=== PATIENT | female | born 1965 | race Caucasian/White ===

== ENCOUNTER 2016-10-03 13:34 | Emergency (ER) | payer SELFPAY ==
[~2016-10-03] VITALS: Ht 170.2 cm; Wt 90.7 kg
[~2016-10-03 13:34] MED LIST: ACET-789 PO; IBUP-1773 PO; LORA10CA PO; MUPI1OIN5 NS; OMEP20CA6 PO; SERT25TA PO
--- NOTE | 2016-10-03 14:25 | ED Abdominal Pain ---
General Chief Complaint: Abdominal/GI Problems Stated Complaint: ABD PAIN Nursing Triage Note: pt ambulated to room. pt states last night she had a "gallbladder attack". then today at lunch she was having indigestion. pt states she took antacids. Sepsis Screen: No Definite Risk Source of Information: Patient Exam Limitations: No Limitations History of Present Illness Time Seen By Provider: 14:23 Initial Comments To ER with diffuse abdominal pain. The pain seems to be the worst in the upper abdomen specifically the left upper quadrant. She has associated nausea but no diarrhea, no vomiting and no constipation. Her last bowel movement was this morning and is normal. No fevers or chills. No dysuria. She's had this pain intermittently for about 13 years but has never had it evaluated. It became worse than usual last night awakening her from sleep. Timing/Duration: 1-2 Days Severity/Quality: Moderate Location: Generalized Abdomen Radiation: No Radiation Activities at Onset: None Associated Symptoms: Nausea/Vomiting Allergies and Home Medications Allergies Coded Allergies: NKANo Known Allergies (Unverified Allergy, Mild, 06/12/09) Home Medications Acetaminophen with Codeine 1 Each Tablet, 1 EACH PO Q6H, #20 Prescribed by: ABIDA FONSECA on 12/02/14 0937 Ibuprofen 600 Mg Tablet, 600 MG PO Q6H, #40 Prescribed by: ABIDA FONSECA on 12/02/14 0937 Loratadine 10 Mg Capsule, 10 MG PO DAILY, (Reported) Mupirocin Calcium 1 Gm Oint...g., 1 GM NS BID, (Reported) Omeprazole 20 Mg Capsule.dr, 20 MG PO DAILY, (Reported) Sertraline Hcl 25 Mg Tablet, 25 MG PO DAILY, (Reported) Review of Systems Constitutional: see HPI EENTM: No Symptoms Reported Respiratory: No Symptoms Reported Cardiovascular: No Symptoms Reported Gastrointestinal: See HPI, Abdominal Pain, Denies Constipated, Denies Diarrhea , Nausea Genitourinary: No Symptoms Reported Musculoskeletal: no symptoms reported Skin: no symptoms reported Psychiatric/Neurological: No Symptoms Reported Endocrine: No Symptoms Reported Past Aeihssy-Lotvau-Ixxwcw Hx Patient Social History Recent Foreign Travel: No Contact w/Someone Who Travel: No Recent Infectious Disease Expo: No Surgeries HX Surgeries: Yes Respiratory Hx Respiratory Disorders: Yes (HAS USED IN THE PAST-SEVERE ALLERGIES) Cardiovascular Hx Cardiac Disorders: Yes Neurological Hx Neurological Disorders: No Reproductive System Hx Reproductive Disorders: No Sexually Transmitted Disease: No HIV/AIDS: No Female Reproductive Disorders: Denies Genitourinary Hx Genitourinary Disorders: No Gastrointestinal Hx Gastrointestinal Disorders: Yes Gastrointestinal Disorders: Gastroesophageal Reflux, Hiatal Hernia Musculoskeletal Hx Musculoskeletal Disorders: No Endocrine Hx Endocrine Disorders: No HEENT HX ENT Disorders: Yes (WEARS READING GLASSES) Loss of Vision: Bilateral Hearing Impairment: Denies Cancer Hx Cancer: No Psychosocial Hx Psychiatric Problems: Yes (ZOLOFT, PT REPORTS OCD) Behavioral Health Disorders: Depression Integumentary HX Skin/Integumentary Disorder: No Blood Transfusions Hx Blood Disorders: No Adverse Reaction to a Blood Tr: No Family Medical History Family Medial History: COPD 19 MOTHER Diabetes mellitus 19 FATHER Myocardial infarction 19 FATHER TESTICULAR CANCER G8 BROTHER Physical Exam Vital Signs VS - Last 72 Hours, by Label 10/03/16 14:16 Temp 97.3 Pulse 73 Resp 20 B/P (MAP) 175/97 Pulse Ox 97 O2 Delivery Room Air Capillary Refill : Less Than 3 Seconds General Appearance: WD/WN, no apparent distress HEENT: PERRL/EOMI, normal ENT inspection Neck: non-tender, full range of motion Respiratory: normal breath sounds, no respiratory distress, no accessory muscle use Cardiovascular: regular rate, rhythm, no murmur Gastrointestinal: normal bowel sounds, soft, tenderness (left upper quadrant) Extremities: normal range of motion, non-tender Neurologic/Psychiatric: alert, normal mood/affect, oriented x 3 Skin: normal color, warm/dry Progress/Results/Core Measures Results/Orders Lab Results Laboratory Tests Test 10/03/16 14:21 Range/Units White Blood Count 7.4 4.3-11.0 10^3/uL Red Blood Count 4.34 L 4.35-5.85 10^6/uL Hemoglobin 12.9 11.5-16.0 G/DL Hematocrit 40 35-52 % Mean Corpuscular Volume 91 80-99 FL Mean Corpuscular Hemoglobin 30 25-34 PG Mean Corpuscular Hemoglobin Concent 33 32-36 G/DL Red Cell Distribution Width 13.0 10.0-14.5 % Platelet Count 278 130-400 10^3/uL Mean Platelet Volume 9.5 7.4-10.4 FL Neutrophils (%) (Auto) 58 42-75 % Lymphocytes (%) (Auto) 31 12-44 % Monocytes (%) (Auto) 8 0-12 % Eosinophils (%) (Auto) 3 0-10 % Basophils (%) (Auto) 1 0-10 % Neutrophils # (Auto) 4.3 1.8-7.8 X 10^3 Lymphocytes # (Auto) 2.3 1.0-4.0 X 10^3 Monocytes # (Auto) 0.6 0.0-1.0 X 10^3 Eosinophils # (Auto) 0.2 0.0-0.3 10^3/uL Basophils # (Auto) 0.0 0.0-0.1 10^3/uL Urine Color YELLOW Urine Clarity CLEAR Urine pH 6 5-9 Urine Specific [place] 1.025 H 1.016-1.022 Urine Protein 1+ H NEGATIVE Urine Glucose (UA) NEGATIVE NEGATIVE Urine Ketones NEGATIVE NEGATIVE Urine Nitrite NEGATIVE NEGATIVE Urine Bilirubin NEGATIVE NEGATIVE Urine Urobilinogen 1 NORMAL MG/DL Urine Leukocyte Esterase 1+ H NEGATIVE Urine RBC (Auto) NEGATIVE NEGATIVE Urine RBC NONE /HPF Urine WBC NONE /HPF Urine Squamous Epithelial Cells 2-5 /HPF Urine Crystals NONE /LPF Urine Bacteria NEGATIVE /HPF Urine Casts NONE /LPF Urine Mucus SMALL H /LPF Urine Culture Indicated NO Sodium Level 143 135-145 MMOL/L Potassium Level 3.7 3.6-5.0 MMOL/L Chloride Level 105 98-107 MMOL/L Carbon Dioxide Level 28 21-32 MMOL/L Anion Gap 10 5-14 MMOL/L Blood Urea Nitrogen 10 7-18 MG/DL Creatinine 1.02 0.60-1.30 MG/DL Estimat Glomerular Filtration Rate 57 BUN/Creatinine Ratio 10 0-20 Glucose Level 125 H 70-105 MG/DL Calcium Level 9.3 8.5-10.1 MG/DL Total Bilirubin 0.3 0.1-1.0 MG/DL Aspartate Amino Transf (AST/SGOT) 36 H 5-34 U/L Alanine Aminotransferase (ALT/SGPT) 30 0-55 U/L Alkaline Phosphatase 62 40-136 U/L Total Protein 5.9 L 6.4-8.2 GM/DL Albumin 4.0 3.2-4.5 GM/DL Lipase 15 8-78 U/L My Orders Orders - GHAZAL GAUTHIER VICE CHAIR Cbc With Automated Diff (10/03/16 14:22) Comprehensive Metabolic Panel (10/03/16 14:22) Ua Culture If Indicated (10/03/16 14:22) Lipase (10/03/16 14:22) Saline Lock/Iv-Start (10/03/16 14:22) Ct Abdomen/Pelvis W (10/03/16 14:22) Iohexol Injection (Omnipaque 350 Mg/Ml 1 (10/03/16 15:00) Ns (Ivpb) (Sodium Chloride 0.9% Ivpb Bag (10/03/16 15:00) Medications Given in ED Current Medications Medications Dose Ordered Sig/Damon Route Start Time Stop Time Status Last Admin Dose Admin Iohexol 100 ml ONCE ONCE IV 10/03/16 15:00 10/03/16 15:01 DC 10/03/16 15:58 100 ML Vital Signs/I&O Vital Sign - Last 12Hours 10/03/16 14:16 Temp 97.3 Pulse 73 Resp 20 B/P (MAP) 175/97 Pulse Ox 97 O2 Delivery Room Air Blood Pressure Mean: 123 Diagnostic Imaging Diagonstic Imaging: Xray Comments NAME: JAS AGUILAR [facility] REC#: [id number] PT STATUS: REG ER : 1965 PHYSICIAN: GHAZAL GAUTHIER APRN ADMIT DATE: 10/03/16/ER Draft Date of Exam:10/03/16 CT ABDOMEN/PELVIS W PROCEDURE: CT abdomen and pelvis with contrast. TECHNIQUE: Multiple contiguous axial images were obtained through the abdomen and pelvis after administration of intravenous contrast. INDICATION: Abdominal pain and bloating. FINDINGS: There is mild low density throughout the liver without focal hepatic or splenic lesion identified. Gallbladder contains partially calcified stone without evidence of gallbladder distention or wall thickening. No definite biliary ductal dilatation is appreciated. Left adrenal gland and kidneys are unremarkable in appearance. Right adrenal gland contains an approximately 3.4 x 2.6 cm solid nodule with Hounsfield units of approximately 34 on dynamic phase images and 15 on delayed images. There is sohj-tw-kjelwldv aortoiliac atherosclerotic calcification. Uterus demonstrates no abnormality. Partially opacified urinary bladder has a normal appearance. There is no free fluid in the abdomen or pelvis. The appendix has a normal appearance. There may be a cyst in the right ovary. Impression: No definite acute abnormalities identified; however, there is probable hepatic steatosis and cholelithiasis. There is a dominant solid mass in the right adrenal gland. This could represent a benign adenoma although clinical correlation is recommended. If older studies are available, comparison would be of value. If indicated, MRI may be of value for assessment of presence of lipid or fat signal. Dictated on workstation # [id number] Dict: 10/03/16 1620 Trans: 10/03/16 1631 [id number] Interpreted by: DACIA BETH MD Electronically signed by: Departure Impression Impression: Primary Impression: Cholelithiasis Disposition: 01 HOME, SELF-CARE Condition: Stable Departure-Patient Inst. Decision time for Depature: 16:32 Referrals: CESAR RYAN BRETT D DO ENOCH, BETHANY N MD (PCP/Family) Primary Care Physician RENEE YOO MD, TAKAAKI MD Patient Instructions: Gallstones (DC) Add. Discharge Instructions: 1. Follow-up with one of the surgeons listed. Call tomorrow to make an appointment to be seen. In the meantime, no fatty foods or dairy products. 2. He also need to follow-up with one of your regular physicians to obtain an MRI of the abdomen to further evaluate the right adrenal gland abnormality. All discharge instructions reviewed with patient and/or family. Voiced understanding. Copy Copies To 1: SONNY MORENO PETER J APRN Oct 03, 2016 14:25
[2016-10-03 14:37] LABS: BASOPHILS % (AUTO) 1 % (0-10); BILIRUBIN,URINE NEGATIVE (NEGATIVE); EOSINOPHILS # (AUTO) 0.2 10^3/uL (0.0-0.3); EOSINOPHILS % (AUTO) 3 % (0-10); KETONES,URINE NEGATIVE (NEGATIVE); LEUKOCYTE ESTERASE ,URINE 1+ (NEGATIVE); LYMPHOCYTES # (AUTO) 2.3 X 10^3 (1.0-4.0); LYMPHOCYTES % (AUTO) 31 % (12-44); MEAN CORPUSCULAR HEMOGLOBIN 30 PG (25-34); MEAN CORPUSCULAR HGB CONC 33 G/DL (32-36); MEAN CORPUSCULAR VOLUME 91 FL (80-99); MEAN PLATELET VOLUME 9.5 FL (7.4-10.4); MONOCYTES # (AUTO) 0.6 X 10^3 (0.0-1.0); MONOCYTES % (AUTO) 8 % (0-12); NEUTROPHILS # (AUTO) 4.3 X 10^3 (1.8-7.8); NEUTROPHILS % (AUTO) 58 % (42-75); NITRITE,URINE NEGATIVE (NEGATIVE); PH,URINE 6 (5-9); PLATELET COUNT 278 10^3/uL (130-400); PROTEIN,URINE 1+ (NEGATIVE); RED BLOOD COUNT 4.34 10^6/uL (4.35-5.85); UROBILINOGEN,URINE 1 MG/DL (NORMAL); WHITE BLOOD COUNT 7.4 10^3/uL (4.3-11.0)
[2016-10-03 14:54] LABS: BILIRUBIN,TOTAL 0.3 MG/DL (0.1-1.0); CALCIUM 9.3 MG/DL (8.5-10.1); CREATININE SERUM 1.02 MG/DL (0.60-1.30); ICTERUS 0.3 (0-1.9); POTASSIUM 3.7 MMOL/L (3.6-5.0); TOTAL PROTEIN 5.9 GM/DL (6.4-8.2)
[2016-10-03] MEDS ORDERED: NS 100 ML (IVPB) BAG IV ONE (15:00)
[2016-10-03] MEDS ORDERED: IOHEXOL 350 MG/ML 100 ML (OMNIPAQUE 350) VIAL IV ONE (15:00)
--- NOTE | 2016-10-03 16:32 | Diagnostic Imaging Report ---
PROCEDURE: CT abdomen and pelvis with contrast. TECHNIQUE: Multiple contiguous axial images were obtained through the abdomen and pelvis after administration of intravenous contrast. INDICATION: Abdominal pain and bloating. FINDINGS: There is mild low density throughout the liver without focal hepatic or splenic lesion identified. Gallbladder contains partially calcified stone without evidence of gallbladder distention or wall thickening. No definite biliary ductal dilatation is appreciated. Left adrenal gland and kidneys are unremarkable in appearance. Right adrenal gland contains an approximately 3.4 x 2.6 cm solid nodule with Hounsfield units of approximately 34 on dynamic phase images and 15 on delayed images. There is yhup-pk-dhtwnnwe aortoiliac atherosclerotic calcification. Uterus demonstrates no abnormality. Partially opacified urinary bladder has a normal appearance. There is no free fluid in the abdomen or pelvis. The appendix has a normal appearance. There may be a cyst in the right ovary. Impression: No definite acute abnormalities identified; however, there is probable hepatic steatosis and cholelithiasis. There is a dominant solid mass in the right adrenal gland. This could represent a benign adenoma although clinical correlation is recommended. If older studies are available, comparison would be of value. If indicated, MRI may be of value for assessment of presence of lipid or fat signal. Dictated by: Dictated on workstation # [id number]
[2016-10-03 16:59] VITALS: BP 175/97
== END 2016-10-03 16:59 | disposition home or self-care (01) ==
LOC: EDUNIT# 13:34 → ER 13:37
DX: K80.20 Calculus of gallbladder without cholecystitis without obstruction (principal); K21.9 Gastro-esophageal reflux disease without esophagitis; Z87.19 Personal history of other diseases of the digestive system
CPT/HCPCS: 36415; 74177; 80053; 81000; 83690; 85025

== ENCOUNTER → 2016-12-24 | Outpatient (CLI) | payer BC, OTHER ==
[~2016-12-24] MED LIST changes: +GADOBUTROL 10 MMOL/10 ML (GADAVIST) VIAL IV ONE
[2016-12-24 09:01] LABS: CREATININE SERUM 1.02 MG/DL (0.60-1.30)
--- NOTE | 2016-12-24 11:28 | Diagnostic Imaging Report ---
PROCEDURE: MR imaging abdomen with and without contrast. TECHNIQUE: Multiplanar, multisequence MR imaging of the abdomen was performed with and without contrast. INDICATION: Further evaluation of adrenal mass. FINDINGS: Right adrenal mass is stable in size measuring 3.4 x 2.6 cm. On opposed phase imaging, there is marked signal dropout indicative of intrinsic lipid and compatible with benign adenoma. The left adrenal gland is normal. Opposed phase imaging also demonstrates diffuse signal dropout in the liver indicative of hepatic steatosis. Postcontrast imaging demonstrates no concerning hepatic lesions. The spleen and pancreas are normal. Gallbladder is distended with multiple filling defects indicative of cholelithiasis. No gallbladder wall thickening or pericholecystic fluid. No biliary duct dilatation. The common bile duct measures 5 mm in maximal dimension. Kidneys enhance normally. No hydronephrosis. No abdominal lymphadenopathy. Normal caliber abdominal aorta. IMPRESSION: 1. 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 2. Diffuse hepatic steatosis. No focal hepatic lesions. 3. Cholelithiasis. No biliary duct dilatation or evidence of acute cholecystitis. Dictated by: Dictated on workstation # [id number]
== END ==
LOC: RAD 08:17
PROVIDERS: ATTEND Family Medicine
DX: E27.9 Disorder of adrenal gland, unspecified (principal); K76.0 Fatty (change of) liver, not elsewhere classified; K80.20 Calculus of gallbladder without cholecystitis without obstruction; Z91.89 Other specified personal risk factors, not elsewhere classified
CPT/HCPCS: 36415; 74183; 82565; 84520

== ENCOUNTER 2016-12-29 08:06 | Outpatient (RCR) | payer OTHER ==
[~2016-12-29 08:06] MED LIST changes: -GADOBUTROL 10 MMOL/10 ML (GADAVIST) VIAL IV ONE
[2017-01-02 07:08] LABS: URINE CREATININE MG/DL 128 MG/DL
[2017-01-02 07:13] LABS: VMA 24 HOUR URINE 3.9 MG/L; VMA/CREATININE 121 MG/DL
[2017-01-02 07:14] LABS: CREATININE VMA TIMED 24 HOUR 1573 H MG/D (500-1400)
[2017-01-02 07:15] LABS: VMA CREATININE RATIO 3 MG/GCR (0-6); VMA URINE INTERPRETATION SEE FOOTNOTE
[2017-01-02 07:24] LABS: META CREAT URINE 1547 MG/D (500-1400)
[2017-01-02 07:28] LABS: NORMETANEPHRINES RATIO 297 UG/G CRT (0-400)
[2017-01-02 07:29] LABS: METANEPHRINES RATIO 75 UG/G CRT (0-300); METANEPHRINES URINE 116 ug/day (39-143); NORMETANEPHRINES URINE 459 H ug/day (109-393)
[2017-01-02 07:30] LABS: NETANEPHRINES INTERP SEE FOOTNOTE
[2017-01-02 07:31] LABS: CREATININE METANEPHRINES MG/DL 119 MG/DL
== END 2016-12-29 11:00 | disposition home or self-care (01) ==
LOC: LAB 08:06
PROVIDERS: ATTEND Surgery
DX: E27.9 Disorder of adrenal gland, unspecified (principal)
CPT/HCPCS: 36415; 82088; 83835; 84585

== ENCOUNTER → 2017-01-20 | Outpatient (CLI) | payer OTHER | LOC: PREOP 05:39 | PROVIDERS: ATTEND Surgery | DX: Z01.818 Encounter for other preprocedural examination (principal); K80.20 Calculus of gallbladder without cholecystitis without obstruction ==

== ENCOUNTER 2017-03-19 05:37 | Outpatient (CLI) | payer SELFPAY ==
[~2017-03-19] VITALS: Ht 170.2 cm; Wt 99.8 kg
[2017-03-19] MEDS ORDERED: HYDR25TA4 PO (12:33)
== END 2017-03-19 12:42 ==
LOC: PREOP 05:37
PROVIDERS: ATTEND Surgery
DX: Z01.818 Encounter for other preprocedural examination (principal); K80.20 Calculus of gallbladder without cholecystitis without obstruction

== ENCOUNTER 2017-03-26 06:24 | Day surgery (SDC) | payer SELFPAY ==
[~2017-03-26] VITALS: Ht 170.2 cm; Wt 99.8 kg
[~2017-03-26 06:24] MED LIST changes: +HYDR25TA4 PO
[2017-03-26 06:45] VITALS: BP 150/96
[2017-03-26] MEDS ORDERED: FAMOTIDINE 20MG/2ML IV (PEPCID) IV ONE (07:00)
[2017-03-26] MEDS ORDERED: MIDAZOLAM 2 MG/2 ML (VERSED) VIAL IV ONE (07:00)
[2017-03-26] MEDS ORDERED: ceFAZolin 2 GM/NS 50 ML IV ONE (07:00)
[2017-03-26] MEDS ORDERED: metroNIDAZOLE 500 MG/100 ML IVPB (PRE-MIX) IV ONE (07:00)
[2017-03-26 07:05] LABS: MEAN PLATELET VOLUME 9.4 FL (7.4-10.4); RED BLOOD COUNT 4.66 10^6/uL (4.35-5.85); RED CELL DISTRIBUTION WIDTH 12.6 % (10.0-14.5); WHITE BLOOD COUNT 7.3 10^3/uL (4.3-11.0)
[2017-03-26] MEDS: LACTATED RINGERS 1,000 ML IV SCH ×2 (07:16→07:45)
[2017-03-26] MEDS ORDERED: MIDAZOLAM 2 MG/2 ML (VERSED) VIAL ONE (07:20)
[2017-03-26] MEDS ORDERED: fentaNYL INJECTION 100 MCG/2 ML AMP ONE ×2 (07:21→09:48)
[2017-03-26] MEDS ORDERED: BUP/EPI 0.5% 1:200,000 (MARCAINE) 10ML VIAL IJ ONE (07:41)
--- NOTE | 2017-03-26 07:50 | Progress Note-Pre Operative ---
Pre-Operative Progress Note H&P Reviewed The H&P was reviewed, patient examined and no changes noted. Date Seen by Provider: Feb 27, 2017 Time Seen by Provider: 11:20 Date H&P Reviewed: Mar 26, 2017 Time H&P Reviewed: 07:49 Pre-Operative Diagnosis: Gallstones RENEE YOO MD Mar 26, 2017 7:49 am
[2017-03-26] MEDS ORDERED: ATOR20TA66 PO (08:12)
[2017-03-26] MEDS ORDERED: DEXAMETHASONE 10 MG/ML (DECADRON) 1 ML VIAL ONE (09:01)
[2017-03-26] MEDS ORDERED: ONDANSETRON 4 MG/2 ML (SDV) Z0FRAN ONE ×2 (09:01→09:38)
[2017-03-26] MEDS ORDERED: ROCURONIUM 50 MG/5 ML (ZEMURON) VIAL IV ONE (09:01)
[2017-03-26] MEDS ORDERED: proPOfol 200 MG/20 ML (DIPRIVAN) VIAL IV ONE (09:01)
[2017-03-26] MEDS ORDERED: LIDOCAINE PF 2% 5 ML (XYLOCAINE) VIAL ONE (09:01)
[2017-03-26] MEDS ORDERED: SEVOFLURANE (ULTANE) 15 ML INHAL SOLN ONE ×4 (09:01→09:38)
[2017-03-26] MEDS ORDERED: GLYCOPYRROLATE 0.2 MG/ML (ROBINUL) 2 ML VIAL ONE (09:51)
[2017-03-26] MEDS ORDERED: NEOSTIGMINE (BLOXIVERZ ) 1 MG/1ML 10 ML VIAL ONE (09:51)
--- NOTE | 2017-03-26 09:55 | Operative Report ---
Operative Report Date of Procedure/Surgery Mar 26, 2017 Surgeon (s) RENEE YOO MD Hose Coupling Joiner (s): N/A Post-Operative Diagnosis Same Procedure Performed Robotic-assisted cholecystectomy Description of Procedure Anesthesia Type: General Estimated blood loss (mL): Minimal Specimen(s) collected/removed Gallbladder Description of the Procedure Indication for procedure: This lady presented with symptomatic gallstones, found on CT scan. Incidental, nonfunctioning right adrenal nodule was also discovered. This will be followed up with a CT scan in 6 months. With regard to gallstones, she was offered cholecystectomy with minimally invasive technique using robotic assistance. Informed consent was obtained after reviewing the operative details and complications of wound infection and bile leak Description of the procedure: She was placed supine on the operative table and general anesthesia induced using an endotracheal tube. 2 g of Ancef and 500 mg of Flagyl were administered intravenously as prophylaxis against wound infection. Sequential compression devices were placed around her legs, to minimize the risk of venous thrombosis. Abdomen was prepared and draped in the usual sterile manner. Due to previous abdominal surgery using a lower midline incision, I elected to establish pneumoperitoneum using a Veress needle introduced over the left subcostal margin. Intra-abdominal pressure was maintained at 15 mmHg, using carbon dioxide insufflation. A 5 mm trocar was placed and anatomy was lysed using a conventional laparoscope. Omentum was adherent to the undersurface of the lower midline scar. Under direct view, I placed an 8 mm trocar associated with da Krishna system over the left side of the abdomen and took down the adhesions, allowing placement of the 12 mm trocar through the umbilicus itself. An additional 8 mm trocar was placed over the right side of the abdomen and we switched to the robotic system. All the trocars were docked in place. Gallbladder was thick, containing multiple large stones and rather elongated. Was retracted cephalad and the infundibulum grasped with Cadiere or sepsis. Thickened tissue around the neck of the gallbladder was sized using the hook cautery delineating the cystic duct. It was controlled using locking clips. Cystic artery was managed in a similar fashion and the cholecystectomy completed using the hook artery. Subhepatic space was irrigated with saline and the gallbladder placed in an Endo Catch bag, being removed via the umbilical incision. The fascia over this incision was closed using #1 Vicryl incisions were closed using 4-0 Vicryl, in a subcuticular fashion. 0.5 percent Marcaine with epinephrine was infiltrated along the incisions, both preemptively and at the conclusion of the operation. She tolerated the procedure well, was extubated in the operating room and taken to the recovery room in a stable condition Findings of the Procedure See op report Allergies and Home Medications Allergies Coded Allergies: No Known Drug Allergies (Unverified , 03/19/17) Home Medications Atorvastatin Calcium 20 Mg Tablet, 20 MG PO DAILY, (Reported) Hydrochlorothiazide 25 Mg Tablet, 25 MG PO DAILY, (Reported) RENEE YOO MD Mar 26, 2017 9:55 am
[2017-03-26] MEDS ORDERED: HYDR-3812 PO (09:56)
--- NOTE | 2017-03-26 09:56 | Discharge Inst-Simple/Standard ---
Discharge Inst-Standard Discharge Medications New, Converted or Re-Newed RX: RX on Chart Patient Instructions/Follow Up Plan of Care/Instructions/FU: Band-Aids off in 48 hours. Incentive spirometry. Follow-up in 3 weeks. Activity as Tolerated: Yes Discharge Diet: No Restrictions RENEE YOO MD Mar 26, 2017 9:56 am
[2017-03-26] MEDS ORDERED: KETOROLAC 30 MG/ML VIAL ONE (09:59)
[2017-03-26] MEDS ORDERED: morphine INJ 10 MG/ML 1ML (SYR OR VIAL) ONE (10:08)
[2017-03-26] MEDS ORDERED: HYDROmorphone (DILAUDID) 2 MG/ML VIAL IVP PRN (10:15)
[2017-03-26] MEDS ORDERED: ONDANSETRON 4 MG/2 ML (SDV) Z0FRAN IVP PRN (10:15)
[2017-03-26] MEDS ORDERED: morphine INJ 10 MG/ML 1ML (SYR OR VIAL) IVP PRN (10:15)
[2017-03-26] MEDS ORDERED: PROMETHAZINE INJ 25 MG/ML (PHENERGAN) AMP IVP PRN (10:15)
[2017-03-26 11:00] VITALS: BP 118/76
[2017-03-26 11:30] VITALS: BP 122/69
[2017-03-26] MEDS ORDERED: LACTATED RINGERS 1,000 ML IV PRN (11:47)
[2017-03-26 12:00] VITALS: BP 113/69
[2017-03-26 12:01] VITALS: BP 113/69
== END 2017-03-26 12:20 | disposition home or self-care (01) ==
LOC: SDC 06:24
PROVIDERS: ATTEND Surgery
DX: K80.10 Calculus of gallbladder with chronic cholecystitis without obstruction (principal); I10 Essential (primary) hypertension; J44.9 Chronic obstructive pulmonary disease, unspecified; F41.9 Anxiety disorder, unspecified; F17.210 Nicotine dependence, cigarettes, uncomplicated; E66.9 Obesity, unspecified; Z68.34 Body mass index [BMI] 34.0-34.9, adult; Z79.899 Other long term (current) drug therapy
CPT/HCPCS: 36415; 84703; 85027; 87081; 88304; 94664

== ENCOUNTER → 2017-07-16 | Outpatient (CLI) | payer SELFPAY ==
[~2017-07-16] MED LIST changes: +ACHD5005 PO; +ATOR20TA66 PO
--- NOTE | 2017-07-16 10:17 | Diagnostic Imaging Report ---
PROCEDURE: US Abdomen, limited. TECHNIQUE: Multiple realtime grayscale images were obtained over the abdomen in various projections. INDICATION: Right groin pain. Sonographic interrogation of the right groin was performed. No sonographic abnormality is seen. No mass is identified. No definite hernia is detected. IMPRESSION: Unremarkable right groin ultrasound. Dictated by: Dictated on workstation # [id number]
== END ==
LOC: RAD 07:53
PROVIDERS: ATTEND Family Medicine
DX: R10.31 Right lower quadrant pain (principal)
CPT/HCPCS: 76705

== ENCOUNTER → 2018-08-04 | Outpatient (CLI) | payer SELFPAY ==
[2018-08-04 11:50] LABS: ALANINE AMINOTRANSFERASE 27 U/L (0-55); ALBUMIN 4.1 GM/DL (3.2-4.5); ALKALINE PHOSPHATASE 67 U/L (40-136); BILIRUBIN,TOTAL 0.3 MG/DL (0.1-1.0); BUN/CREATININE RATIO 13; CALCIUM 9.5 MG/DL (8.5-10.1); CARBON DIOXIDE 31 MMOL/L (21-32); CHLORIDE 101 MMOL/L (98-107); CREATININE SERUM 0.92 MG/DL (0.60-1.30); GFR ESTIMATED > 60; GLUCOSE 88 MG/DL (70-105); POTASSIUM 3.9 MMOL/L (3.6-5.0); SODIUM 140 MMOL/L (135-145)
--- NOTE | 2018-08-04 13:39 | Diagnostic Imaging Report ---
PROCEDURE: CT abdomen and pelvis with contrast. TECHNIQUE: Multiple contiguous axial images were obtained through the abdomen and pelvis after administration of intravenous contrast. Auto Exposure Controls were utilized during the CT exam to meet ALARA standards for radiation dose reduction. INDICATION: Right adrenal adenoma as well as bilateral renal stones. COMPARISON: Correlation is made with prior CT from 10/03/2016. FINDINGS: The lung bases are clear. The liver again demonstrates generalized low density consistent with hepatic steatosis. No discrete liver mass is identified. Gallbladder is surgically absent. No biliary ductal dilatation is seen. The pancreas and spleen are unremarkable. The left adrenal gland is unremarkable. Right adrenal mass is again seen. This measures approximately 3.8 x 3.0 cm. When measured by the same technique this measures approximately 3.7 x 3.1 cm on prior. The kidneys are unremarkable. No hydronephrosis is seen. Aorta is calcified but nonaneurysmal. No central retroperitoneal or mesenteric lymphadenopathy is detected. The small and large bowel loops are normal in caliber. There is no ascites. The uterus is unremarkable. Bladder is decompressed. No pelvic lymphadenopathy is seen. IMPRESSION: 1. Hepatic steatosis. 2. Stable low-density right adrenal mass most suggestive of an adenoma. This now shows nearly 2 years of stability. 3. No other significant abnormality in the abdomen or pelvis is identified. Dictated by: Dictated on workstation # [id number]
== END ==
LOC: RAD 10:56
PROVIDERS: ATTEND Family Medicine
DX: E78.5 Hyperlipidemia, unspecified (principal); I10 Essential (primary) hypertension; D35.01 Benign neoplasm of right adrenal gland; N20.0 Calculus of kidney; K76.0 Fatty (change of) liver, not elsewhere classified; Z90.49 Acquired absence of other specified parts of digestive tract
CPT/HCPCS: 36415; 74177; 80053

== ENCOUNTER → 2019-05-05 | Outpatient (CLI) | payer OTHER ==
[~2019-05-05] MED LIST changes: +FURO20TA4 PO
== END ==
LOC: CARD 10:55
PROVIDERS: ATTEND Family Medicine
DX: I10 Essential (primary) hypertension (principal); M79.89 Other specified soft tissue disorders
CPT/HCPCS: 93306

== ENCOUNTER 2019-05-06 05:33 | Outpatient (CLI) | payer OTHER ==
[~2019-05-06] VITALS: Ht 170 cm; Wt 118.0 kg
[~2019-05-06 05:33] MED LIST changes: -FURO20TA4 PO
[2019-05-06] MEDS ORDERED: FURO20TA4 PO (12:42)
== END 2019-05-06 12:46 | disposition home or self-care (01) ==
LOC: PREOP 05:33
PROVIDERS: ATTEND Surgery
DX: Z01.818 Encounter for other preprocedural examination (principal)

== ENCOUNTER → 2019-06-02 | Outpatient (CLI) | payer OTHER ==
[~2019-06-02] MED LIST changes: +FURO20TA4 PO
--- NOTE | 2019-06-02 11:47 | Diagnostic Imaging Report ---
INDICATION: Screening. TECHNIQUE: The current study was also evaluated with a Computer Aided Detection (CAD) system. 3D Tomographic imaging was also performed. COMPARISON: No prior examinations are available for comparison. FINDINGS: There are scattered fibroglandular densities bilaterally. There are a few benign type calcifications. There is no dominant mass, spiculated lesion, or suspicious calcification identified. The skin, nipples, and axillae are unremarkable. IMPRESSION: Benign findings. ACR BI-RADS Category 2: Benign findings. Result letter will be mailed to the patient. Note: At least 10% of breast cancer is not imaged by mammography. Dictated by: Dictated on workstation # [id number]
== END ==
LOC: RAD 10:29
PROVIDERS: ATTEND Family Medicine
DX: Z12.31 Encounter for screening mammogram for malignant neoplasm of breast (principal)
CPT/HCPCS: 77067

== ENCOUNTER → 2019-06-14 | Outpatient (CLI) | payer OTHER ==
--- NOTE | 2019-06-14 12:19 | Diagnostic Imaging Report ---
PROCEDURE: MRI lumbar spine. TECHNIQUE: Multiplanar, multisequence MRI of the lumbar spine was performed without contrast. INDICATION: Chronic low back pain. COMPARISON: No prior studies are available for comparison. FINDINGS: Curvature and alignment of the lumbar spine is normal. Vertebral body heights are well-maintained. No acute compression fracture is seen. There appears to be a benign hemangiolipoma within the L3 vertebral body. No acute compression fracture is seen. There is generalized degenerative disc disease with variable disc space narrowing and desiccation. The conus is unremarkable at the L1 level. T12-L1: Central canal and neural foramina are widely patent. L1-L2: Central canal is widely patent. Neural foramina are patent. L2-L3: Broad-based disc/osteophyte complex indents the ventral thecal sac. Central canal remains patent. No significant neural foraminal narrowing is seen. L3-L4: Central canal remains widely patent. There appears to be very mild neural foraminal narrowing bilaterally. L4-L5: There is some ligamentous thickening present. There is flattening of the ventral thecal sac due to disc/osteophyte complex. Central canal remains patent. There is some narrowing of the lateral recesses bilaterally. There is also moderate bilateral neural foraminal narrowing. L5-S1: Broad-based disc/osteophyte complex indents the ventral thecal sac. This is asymmetric to the right. This does narrow the right lateral recess. There is also moderate right neural foraminal narrowing. Central canal and left neural foramen are patent. Paraspinous tissues demonstrate a right adrenal mass, noted on prior CT. IMPRESSION: 1. Degenerative lumbar spondylosis with multilevel lateral recess and neural foraminal narrowing described level by level above. No central canal stenosis is seen. No acute compression fracture is identified. Dictated by: Dictated on workstation # [id number]
== END ==
LOC: RAD 10:25
PROVIDERS: ATTEND Family Medicine
DX: M47.816 Spondylosis without myelopathy or radiculopathy, lumbar region (principal); M54.41 Lumbago with sciatica, right side; M54.42 Lumbago with sciatica, left side
CPT/HCPCS: 72148

== ENCOUNTER 2019-08-08 15:41 | Inpatient (IN) | payer OTHER ==
[~2019-08-08] VITALS: Ht 170 cm; Wt 120.2 kg
[2019-08-08] VITALS (9 sets, daily range): BP systolic 91–156; BP diastolic 60–108
--- OUTSIDE RECORDS SUMMARY | 2019-08-08 15:47 | XMS REPORT ---
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 Name Role Phone Migration, Doctor Unavailable Unavailable PROBLEMS Type Condition ICD9-CM Code [id number] Code Onset Dates Condition S tatus SNOMED Code Problem Essential hypertension I10 Active 11569562 Problem Chronic obstructive pulmonary disease, unspecified COPD ty pe J44.9 Active 04289113 Problem Allergic rhinitis J30.9 Active 61 568294 Problem Hyperlipidemia E78.5 Active 60948 004 Problem GERD (gastroesophageal reflux disease) K21.9 Active 120185739 Problem Depression F32.9 Active 83873706 Problem 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 Active 454459681 Problem Anxiety F41.9 Active 25687830 Problem Fibromyalgia M79.7 Active 3193704 05 Problem Lumbago with sciatica, left side M54.42 Active 958360260 Problem Lumbago with sciatica, right side M54.41 Active 857638646 Problem BMI 40.0-44.9, adult Z68.41 Active 439295050 Problem 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 Active 70226561 Problem COPD exacerbation J44.1 Active 19 4324902 Problem Tobacco use Z72.0 Active 97473821 8 Problem Other chronic pain G89.29 Active 8 7022633 Problem BMI 37.0-37.9, adult Z68.37 Active 729338411 Problem Non-alcoholic fatty liver disease K76.0 Active 355546348 Problem Elevated hemoglobin D58.2 Active 708903838 ALLERGIES No Information ENCOUNTERS Encounter Location Date Diagnosis [facility] [address] [id number] [address] [place] [address] 13 Jun, 2019 Chronic obstructive pulmonar y disease, unspecified COPD type J44.9 ; Other chronic pain G89.29 ; 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 ; Lumbago with sciatica, right side M54.41 and Lumbago with sciatica, left side M54.42 [place] [address] [facility] [id number] [address] [place] [address] Jun, 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 ; Segmental dysfunction of thoracic region M99.02 ; Segmental dysfunction of lumbar region M99.03 and Segmental dysfunction of sacral region M99.04 [facility] [address] [id number] [address] [place] [address] Jun, [place] [address] [facility] [id number] [place] [address] Jun, 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 ; Segmental dysfunction of thoracic region M99.02 ; Segmental dysfunction of lumbar region M99.03 and Segmental dysfunction of sacral region M99.04 [place] [address] [facility] [id number] [address] [place] [address] 27 May, 2019 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 ; Segmental dysfunction of thoracic region M99.02 ; Segmental dysfunction of lumbar region M99.03 and Segmental dysfunction of sacral region M99.04 [place] [address] [place] [id number] [address] [place] [address] 17 May, 2019 [place] [address] [place] [id number] [place] [address] May, Lumbago with sciatica, right side M54.41 ; Lumbago with sciatica, left side M54.42 ; BMI 40.0-44.9, adult Z68.41 ; Peripheral edema R60.9 ; Decreased GFR R94.4 and Elevated hemoglobin D58.2 [facility] [address] [id number] [address] [place] [address] 05 May, 2019 COPD exacerbation J44.1 and Bronchitis J40 [facility] [address] [facility] [id number] [address] [place] [address] Apr, Decreased GFR R94.4 [place] [address] [facility] [facility] [id number] [address] [place] [address] Apr, Well woman exam with routine gynecological exam Z01.419 ; Screening mammogram, encounter for Z12.31 ; Decreased GFR R94.4 ; Elevated hemoglobin D58.2 and BMI 40.0-44.9, adult Z68.41 [place] [address] [address] 08 Apr, 2019 Decreased GFR R94.[address] [address] 02 Apr, 2019 Swelling R60.9 ; Bloating R1 4.0 ; Screening for colon cancer Z12.11 ; Hyperlipidemia E78.5 ; Depression F32.9 ; Essential hypertension I10 and Non- alcoholic fatty liver disease K76.0 [facility] [address] [address] Mar, Generalized edema R60.[address] [address] Mar, [facility] [address] [address] Mar, Chronic obstructive pulmonar y disease, unspecified COPD type J44.9 and Pedal edema R60.[address] [address] Feb, [address] [address] Dec, Hyperlipidemia E78.5 ; Essen tial hypertension I10 ; Epigastric pain R10.13 ; Colon cancer screening Z12.11 ; Tobacco use Z72.0 ; BMI 37.0-37.9, adult Z68.37 ; Non-alcoholic fatty liver disease K76.0 and Diastasis recti M62.[address] [address] Dec, Hyperlipidemia E78.[address] [address] Dec, Hyperlipidemia E78.5 [place] [address] [address] Dec, Essential hypertension I10 a nd Hyperlipidemia E78.5 [place] [address] [address] Jul, Lumbago with sciatica, right side M54.41 and Lumbago with sciatica, left side M54.42 [place] [address] [address] Jul, Essential hypertension I10 ; Chronic obstructive pulmonary disease, unspecified COPD type J44.9 ; Lumbago with sciatica, right side M54.41 ; Lumbago with sciatica, left side M54.42 ; Other chronic pain G89.29 ; Tobacco abuse counseling Z71.6 ; 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 and Hyperlipidemia E78.5 [place] [address] [address] May, Hyperlipidemia E78.5 [facility] [address] [address] Feb, Acute bronchitis, unspecifie d organism J20.9 and Cough R05 [place] [address] [address] Feb, [place] [address] [address] Dec, Muscle ache M79.1 ; Hyperlip idemia E78.5 and Tick bite, sequela W57.XXXS [place] [address] [address] Dec, Essential hypertension I10 ; Ganglion cyst M67.40 ; Hyperlipidemia E78.5 ; Fibromyalgia M79.7 ; Muscle ache M79.1 and Tick bite, sequela W57.XXXS [place] [address] [address] Oct, [place] [address] [address] Jul, [place] [address] [address] Jul, Right groin pain R10.31 and Hoarseness R49.0 [place] [address] [address] Jun, [place] [address] [address] Jun, Chronic obstructive pulmonar y disease, unspecified COPD type J44.9 and Bronchitis J40 [address] [address] Jun, Right groin pain R10.[address] [address] Jun, Right groin pain R10.31 [place] [address] [address] Jun, Right groin pain R10.31 ; Ch ronic obstructive pulmonary disease, unspecified COPD type J44.9 ; 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 ; Anxiety F41.9 ; Depression F32.9 and 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 [address] Feb, [place] [address] [address] Jan, Hyperlipidemia 272.4 ; Adeno ma of right adrenal gland D35.01 and Hyperlipidemia E78.[address] [address] 13 Jan, 2017 [place] [address] [address] 15 Dec, 2016 Adenoma of right adrenal gla nd D35.01 ; Essential hypertension I10 ; Hyperlipidemia E78.5 ; Calculus of gallbladder without cholecystitis without obstruction K80.20 ; Tobacco use Z72.0 and BMI 33.0-33.9,adult Z68.[address] [address] Nov, Essential hypertension I10 [place] [address] [address] Nov, At high risk for kidney inju ry Z91.89 [place] [address] [address] Nov, Right adrenal mass E27.9 and Calculus of gallbladder without cholecystitis without obstruction K80.20 [facility] [place] [address] [address] Sep, Musculoskeletal pain of righ t lower extremity M79.604 [place] [address] [address] Oct, Chronic obstructive pulmonar y disease, unspecified COPD type J44.9 [place] [address] [address] Oct, Tobacco abuse Z72.0 [place] [address] [address] Sep, [facility] [address] [address] August, Bronchitis J40 [place] [address] [address] Apr, Depression F32.9 ; Essential hypertension I10 ; Hyperlipidemia E78.5 ; Abdominal bloating R14.0 ; Irregular menstruation N92.6 ; Hoarseness or changing voice R49.9 ; Wheezing R06.2 and Tobacco abuse Z72.0 [place] [address] [address] Nov, Major depressive disorder, r ecurrent episode, moderate 296.32 [facility] [address] [id number] [address] [place] [address] Nov, Hypertension 401.9 and Tobac co abuse 305.1 [facility] [address] [id number] [address] [place] [address] Nov, [facility] [address] [id number] [address] [place] [address] Nov, [facility] [address] [id number] [address] [place] [address] Nov, Major depressive disorder, r ecurrent episode, moderate 296.32 [facility] [address] [facility] [id number] [address] [place] [address] Oct, [facility] [address] [facility] [id number] [address] [place] [address] Oct, Major depressive disorder, r ecurrent episode, moderate 296.32 [facility] [address] [facility] [id number] [address] [place] [address] Oct, [facility] [address] [facility] [id number] [address] [place] [address] Sep, Hyperlipidemia 272.4 ; Depre ssion 311 and Urinary incontinence 788.30 [facility] [address] [facility] [id number] [address] [place] [address] Jul, [facility] [address] [facility] [id number] [address] [place] [address] Jul, [facility] [address] [facility] [id number] [address] [place] [address] Jan, [facility] [address] [facility] [id number] [address] [place] [address] Jan, [facility] [address] [facility] [id number] [address] [place] [address] Jan, [facility] [address] [facility] [id number] [address] [place] [address] 06 Jan, 2014 [facility] [address] [id number] [address] [place] [address], [place] [address] 18 Dec, 2013 [facility] [address] [id number] [address] [place] [address], [place] [address] 18 Dec, 2013 [facility] [address] [id number] [address] [place] [address], [place] [address] 17 Dec, 2013 [facility] [address] [id number] [address] [place] [address], [place] [address] 17 Dec, 2013 [facility] [address] [id number] [address] [place] [address], [place] [address] 16 Dec, 2013 [facility] [address] [id number] [address] [place] [address], [place] [address] 16 Dec, 2013 [facility] [address] [id number] [address] [place] [address], [place] [address] 14 Oct, 2013 [facility] [address] [id number] [address] [place] [address], [place] [address] 14 Oct, 2013 [facility] [address] [id number] [address] [place] [address], [place] [address] August, [facility] [address] [id number] [address] [place] [address], [place] [address] August, [facility] [address] [id number] [address] [place] [address], [place] [address] August, [facility] [address] [id number] [address] [place] [address], [place] [address] August, [facility] [address] [id number] [address] [place] [address], [place] [address] Jul, [facility] [address] [id number] [address] [place] [address], [place] [address] 18 Jul, 2013 [facility] [address] [id number] [address] [place] [address], [place] [address] Jun, [facility] [address] [id number] [address] [place] [address], [place] [address] 31 Jun, 2013 [facility] [address] [id number] [address] [place] [address], [place] [address] Mar, [facility] [address] [id number] [address] [place] [address], [place] [address] Mar, [facility] [address] [id number] [address] [place] [address], [place] [address] Jan, [facility] [address] [id number] [address] [place] [address], [place] [address] Oct, [facility] [address] [id number] [address] [place] [address], [place] [address] August, [facility] [address] [id number] [address] [place] [address], [place] [address] Jun, [facility] [address] [id number] [address] [place] [address], [place] [address] Apr, [facility] [address] [id number] [address] [place] [address], [place] [address] Mar, [facility] [address] [id number] [address] [place] [address], [place] [address] Mar, [facility] [address] [id number] [address] [place] [address], [place] [address] Mar, [facility] [address] [id number] [address] [place] [address], [place] [address] Mar, [facility] [address] [id number] [address] [place] [address], [place] [address] Nov, [facility] [address] [id number] [address] [place] [address], [place] [address] Nov, [facility] [address] [id number] [address] [place] [address], [place] [address] Mar, [facility] [address] [id number] [address] [place] [address], [place] [address] Mar, [facility] [address] [id number] [address] [place] [address] Oct, [facility] [address] [id number] [address] [place] [address] Oct, [facility] [address] [id number] [address] [place] [address] Sep, [facility] [address] [id number] [address] [place] [address] Apr, [facility] [address] [id number] [address] [place] [address] Feb, [facility] [address] [id number] [address] [place] [address] Jan, [facility] [address] [facility] [id number] [address] [place] [address] Jan, IMMUNIZATIONS No Known Immunizations SOCIAL HISTORY Never Assessed REASON FOR VISIT PLAN OF CARE VITAL SIGNS Height 66.75 in 2011-12-12 Weight 201.5 lbs 2011-12-12 Temperature 98.3 degrees Fahrenheit 2011-12-12 Heart Rate 80 bpm 2011-12-12 Respiratory Rate 18 2011-12-12 Blood pressure systolic 122 mmHg 2011-12-12 Blood pressure diastolic 80 mmHg 2011-12-12 MEDICATIONS No Known Medications RESULTS No Results PROCEDURES Procedure Date Ordered Result Body Site COMPLETE CBC W/AUTO DIFF WBC Dec 12, 2011 ASSAY THYROID STIM HORMONE Dec 12, 2011 COMPREHEN METABOLIC PANEL Dec 12, 2011 VENIPUNCT, ROUTINE* Dec 12, 2011 INSTRUCTIONS MEDICATIONS ADMINISTERED No Known Medications MEDICAL (GENERAL) HISTORY Type Description Date Medical History hyperlipidemia Medical History anxiety Medical History Allergies Medical History Calculus of gallbladder with out cholecystitis without obstruction Medical History Calculus of gallbladder with out cholecystitis without obstruction Surgical History heart cath [facility]- normal per record review 05/2009 Surgical History breast biopsy/benign mass removed 1 Surgical History section x 1 Surgical History bladder surgery 11/2014 Surgical History Gallbladder Removal 03/2017 Hospitalization History Surgery
--- OUTSIDE RECORDS SUMMARY | 2019-08-08 15:47 | XMS REPORT ---
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 Name Role Phone Migration, Doctor Unavailable Unavailable PROBLEMS Type Condition ICD9-CM Code UUL33-BE Code Onset Dates Condition S tatus SNOMED Code Problem Essential hypertension I10 Active 62248545 Problem Chronic obstructive pulmonary disease, unspecified COPD ty pe J44.9 Active 85008417 Problem Allergic rhinitis J30.9 Active 61 899219 Problem Hyperlipidemia E78.5 Active 63543 004 Problem GERD (gastroesophageal reflux disease) K21.9 Active 009700170 Problem Depression F32.9 Active 16922719 Problem 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 Active 584992036 Problem Anxiety F41.9 Active 13737911 Problem Fibromyalgia M79.7 Active 8708601 05 Problem Lumbago with sciatica, left side M54.42 Active 197269769 Problem Lumbago with sciatica, right side M54.41 Active 735480368 Problem BMI 40.0-44.9, adult Z68.41 Active 643355487 Problem 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 Active 00045675 Problem Laryngeal polyp J38.1 Active 8642 3004 Problem COPD exacerbation J44.1 Active 19 7873237 Problem Tobacco use Z72.0 Active 58833836 8 Problem Tubular adenoma D36.9 Active 4444 61605 Problem Other chronic pain G89.29 Active 8 3010501 Problem BMI 37.0-37.9, adult Z68.37 Active 358389454 Problem Non-alcoholic fatty liver disease K76.0 Active 768211350 Problem Elevated hemoglobin D58.2 Active 718799134 ALLERGIES No Information ENCOUNTERS Encounter Location Date Diagnosis [facility] [place] [address] [facility] [id number] [address] [place] [address] 14 Jul, 2019 Adenoma of right adrenal gla nd D35.01 ; Lumbago with sciatica, right side M54.41 ; Lumbago with sciatica, left side M54.42 and Swelling R60.9 [place] [address] [address] [facility] [id number] [address] [place] [address] 13 Jul, 2019 [place] [address] [address] 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 [id number] [address] [place] [address] Jun, [place] [address] [address] 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 [id number] [address] [place] [phone] 17 May, [address] [id number] [address] [place] [address] May, Lumbago with sciatica, right side M54.41 ; Lumbago with sciatica, left side M54.42 ; BMI 40.0-44.9, adult Z68.41 ; Peripheral edema R60.9 ; Decreased GFR R94.4 and Elevated hemoglobin D58.2 [facility] [address] [place] [phone] 05 May, 2019 COPD exacerbation J44.1 and Bronchitis J40 [address] [address] Apr, Decreased GFR R94.[address] [address] 15 Apr, 2019 Well woman exam with routine gynecological exam Z01.419 ; Screening mammogram, encounter for Z12.31 ; Decreased GFR R94.4 ; Elevated hemoglobin D58.2 and BMI 40.0-44.9, adult Z68.[address] [address] 08 Apr, 2019 Decreased GFR R94.[address] [address] Apr, Swelling R60.9 ; Bloating R1 4.0 ; Screening for colon cancer Z12.11 ; Hyperlipidemia E78.5 ; Depression F32.9 ; Essential hypertension I10 and Non- alcoholic fatty liver disease K76.0 [facility] [place] [address] [address] Mar, Generalized edema R60.[address] [address] Mar, [facility] [address] [address] Mar, Chronic obstructive pulmonar y disease, unspecified COPD type J44.9 and Pedal edema R60.[address] [address] Feb, [address] [address] Dec, Hyperlipidemia E78.5 ; Essen tial hypertension I10 ; Epigastric pain R10.13 ; Colon cancer screening Z12.11 ; Tobacco use Z72.0 ; BMI 37.0-37.9, adult Z68.37 ; Non-alcoholic fatty liver disease K76.0 and Diastasis recti M62.08 [place] [address] [address] Dec, Hyperlipidemia E78.5 [place] [address] [address] Dec, Hyperlipidemia E78.5 [place] [address] [address] Dec, Essential hypertension I10 a nd Hyperlipidemia E78.5 [place] [address] [address] Jul, Lumbago with sciatica, right side M54.41 and Lumbago with sciatica, left side M54.42 [place] [address] [address] Jul, Essential hypertension I10 ; Chronic obstructive pulmonary disease, unspecified COPD type J44.9 ; Lumbago with sciatica, right side M54.41 ; Lumbago with sciatica, left side M54.42 ; Other chronic pain G89.29 ; Tobacco abuse counseling Z71.6 ; 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 and Hyperlipidemia E78.5 [place] [address] [address] May, Hyperlipidemia E78.5 [facility] [address] [address] Feb, Acute bronchitis, unspecifie d organism J20.9 and Cough R05 [place] [address] [address] Feb, [place] [address] [address] Dec, Muscle ache M79.1 ; Hyperlip idemia E78.5 and Tick bite, sequela W57.XXXS [place] [address] [address] Dec, Essential hypertension I10 ; Ganglion cyst M67.40 ; Hyperlipidemia E78.5 ; Fibromyalgia M79.7 ; Muscle ache M79.1 and Tick bite, sequela W57.XXXS [place] [address] [address] Oct, [place] [address] [address] Jul, [place] [address] [address] Jul, Right groin pain R10.31 and Hoarseness R49.0 [place] [address] [address] Jun, [place] [address] [address] Jun, Chronic obstructive pulmonar y disease, unspecified COPD type J44.9 and Bronchitis J40 [place] [address] [address] Jun, Right groin pain R10.31 [place] [address] [address] Jun, Right groin pain R10.31 [place] [address] [address] Jun, Right groin pain R10.31 ; Ch ronic obstructive pulmonary disease, unspecified COPD type J44.9 ; 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 ; Anxiety F41.9 ; Depression F32.9 and 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 [place] [address] [address] Feb, [place] [address] [address] Jan, Hyperlipidemia 272.4 ; Adeno ma of right adrenal gland D35.01 and Hyperlipidemia E78.5 [place] [address] [address] Jan, [address] [address] Dec, Adenoma of right adrenal gla nd D35.01 ; Essential hypertension I10 ; Hyperlipidemia E78.5 ; Calculus of gallbladder without cholecystitis without obstruction K80.20 ; Tobacco use Z72.0 and BMI 33.0-33.9,adult Z68.[address] [address] Nov, Essential hypertension I10 [address] [address] Nov, At high risk for kidney inju ry Z91.[address] [address] Nov, Right adrenal mass E27.9 and Calculus of gallbladder without cholecystitis without obstruction K80.20 [facility] [address] [place] [address] Sep, Musculoskeletal pain of righ t lower extremity M79.[address] [address] Oct, Chronic obstructive pulmonar y disease, unspecified COPD type J44.[address] [address] Oct, Tobacco abuse Z72.[address] [address] Sep, [facility] [address] [address] August, Bronchitis J40 [facility] [place] [address] [address] Apr, Depression F32.9 ; Essential hypertension I10 ; Hyperlipidemia E78.5 ; Abdominal bloating R14.0 ; Irregular menstruation N92.6 ; Hoarseness or changing voice R49.9 ; Wheezing R06.2 and Tobacco abuse Z72.0 [place] [address] [address] Nov, Major depressive disorder, r ecurrent episode, moderate 296.32 [place] [address] [address] Nov, Hypertension 401.9 and Tobac co abuse 305.1 [place] [address] [address] Nov, [place] [address] [address] Nov, [facility] [place] [address] [address] Nov, Major depressive disorder, r ecurrent episode, moderate 296.32 [place] [address] [address] Oct, [place] [address] [address] Oct, Major depressive disorder, r ecurrent episode, moderate 296.32 [place] [address] [address] Oct, [place] [address] [address] Sep, Hyperlipidemia 272.4 ; Depre ssion 311 and Urinary incontinence 788.30 [facility] [place] [address] [address] Jul, [facility] [place] [address] [address] Jul, [facility] [address] [id number] [address] [place] [address], [place] [address] Jan, [facility] [address] [id number] [address] [place] [address], [place] [address] Jan, [facility] [address] [id number] [address] [place] [address], [place] [address] Jan, [facility] [address] [id number] [address] [place] [address], [place] [address] 06 Jan, 2014 [facility] [address] [id number] [address] [place] [address], [place] [address] 18 Dec, 2013 [facility] [address] [id number] [address] [place] [address], [place] [address] 18 Dec, 2013 [facility] [address] [id number] [address] [place] [address], [place] [address] 17 Dec, 2013 [facility] [address] [id number] [address] [place] [address], [place] [address] 17 Dec, 2013 [facility] [address] [id number] [address] [place] [address], [place] [address] 16 Dec, 2013 [facility] [address] [id number] [address] [place] [address], [place] [address] 16 Dec, 2013 [facility] [address] [id number] [address] [place] [address], [place] [address] 14 Oct, 2013 [facility] [address] [id number] [address] [place] [address], [place] [address] Oct, [facility] [address] [id number] [address] [place] [address], [place] [address] August, [facility] [address] [id number] [address] [place] [address], [place] [address] August, [facility] [address] [id number] [address] [place] [address], [place] [address] August, [facility] [address] [id number] [address] [place] [address], [place] [address] August, [facility] [address] [id number] [address] [place] [address], [place] [address] Jul, [facility] [address] [id number] [address] [place] [address], [place] [address] Jul, [facility] [address] [id number] [address] [place] [address], [place] [address] Jun, [facility] [address] [id number] [address] [place] [address], [place] [address] Jun, [facility] [address] [id number] [address] [place] [address], [place] [address] Mar, [facility] [address] [id number] [address] [place] [address], [place] [address] Mar, [facility] [address] [id number] [address] [place] [address], [place] [address] Jan, [facility] [address] [id number] [address] [place] [address], [place] [address] Oct, [facility] [address] [id number] [address] [place] [address], [place] [address] August, [facility] [address] [id number] [address] [place] [address], [place] [address] Jun, [facility] [address] [id number] [address] [place] [address], [place] [address] Apr, [facility] [address] [id number] [address] [place] [address], [place] [address] Mar, [facility] [address] [id number] [address] [place] [address], [place] [address] Mar, [facility] [address] [id number] [address] [place] [address], [place] [address] Mar, [facility] [address] [id number] [address] [place] [address], [place] [address] Mar, [facility] [place] [address] [id number] [address] [place] [address] Nov, [facility] [place] [address] [id number] [address] [place] [address] Nov, [facility] [place] [address] [id number] [address] [place] [address] Mar, [facility] [place] [address] [id number] [address] [place] [address] Mar, [facility] [place] [address] [id number] [address] [place] [address] Oct, [facility] [place] [address] [id number] [address] [place] [address] Oct, [facility] [place] [address] [id number] [address] [place] [address] Sep, [facility] [place] [address] [id number] [address] [place] [address] Apr, [facility] [place] [address] [id number] [address] [place] [address] Feb, [facility] [place] [address] [id number] [address] [place] [address] Jan, [facility] [place] [address] [id number] [address] [place] [address] Jan, IMMUNIZATIONS No Known Immunizations SOCIAL HISTORY Never Assessed REASON FOR VISIT PLAN OF CARE VITAL SIGNS MEDICATIONS No Known Medications RESULTS No Results PROCEDURES No Known procedures INSTRUCTIONS MEDICATIONS ADMINISTERED No Known Medications MEDICAL [...]
--- OUTSIDE RECORDS SUMMARY | 2019-08-08 15:47 | XMS REPORT ---
Author Author [employer]. Organization [employer]. Address [address] [address] Care Team Providers Care Electroencephalographic Technologist Name Role Phone ASHLEY, LAMONT Unavailable Unavailable CELESTINA RAMIREZ Unavailable Unavailable ASHLEY, LAMONT N Unavailable ASHLEY, LAMONT N Unavailable ASHLEY, LAMONT Unavailable ASHLEY, LAMONT Unavailable ASHLEY, LAMONT Unavailable ASHLEY, LAMONT Unavailable ASHLEY, LAMONT Unavailable ASHLEY, LAMONT Unavailable ASHLEY, LAMONT Unavailable ASHLEY, LAMONT Unavailable ASHLEY, LAMONT Unavailable ASHLEY, LAMONT Unavailable ASHLEY, LAMONT Unavailable KATHLEEN IRVING DO Unavailable Unavailable FENALINE GLASS, TIFFANIE S Unavailable Unavailable GHAZAL GAUTHIER APRN Unavailable Unavailable SERINA NEGRON Unavailable Unavailable ASHLEY, LAMONT Unavailable ASHLEY, LAMONT Unavailable JOSH VIDAL Unavailable Migration, Doctor Unavailable Unavailable Migration, Doctor Unavailable Unavailable Migration, Doctor Unavailable Unavailable Migration, Doctor Unavailable Unavailable Migration, Doctor Unavailable Unavailable Migration, Doctor Unavailable Unavailable ASHLEY, LAMONT N Unavailable Unavailable Migration, Doctor Unavailable Unavailable LAMONT RAMIREZ MD Unavailable Unavailable CESAR RYAN DO Unavailable Unavailable FENECH DO, TIFFANIE S Unavailable Unavailable GHAZAL GAUTHIER APRN Unavailable Unavailable RENEE YOO MD Unavailable Unavailable KATHLEEN IRVING DO Unavailable Unavailable Unavailable Unavailable Migration, Doctor Unavailable Unavailable Migration, Doctor Unavailable Unavailable Migration, Doctor Unavailable Unavailable Migration, Doctor Unavailable Unavailable Migration, Doctor Unavailable Unavailable Migration, Doctor Unavailable Unavailable Allergies Normalized Allergy Reported Date of Reaction(s) Care Provider Facility Allergy Type classification allergen Allergy Onset MA (22 Unclassified NKANo Known 06-12-2009 - no information TIFFANIE PÉREZ Not Available sources.) Allergies , DO (80107) DA (2 Unclassified No Known Drug 03-19-2017 - no information LAMONT RAMIREZ Not Available sources.) Allergies , (70156) Medications Medication Ingredient Drug Dose Dates Status Sig Sig Care Class(es) (Normalized) (Original) Provid er atorvastati atorvastati HMG-CoA 20 mg 03-04-20 Active no At orvastatin no n 20 mg n Reductase 17 information Calcium 20 na me oral tablet Translation Inhibitor mg Orally (no (5 s: [ Once a day 1 phone) sources.) Atorvastati tablet 24h n Calcium Feb, 20 mg] 90 days Active benzonatate benzonatate Non-narcoti 100 mg 03-18-20 Active no Tessalon no 100 mg oral Translation c 18 information Perles 100 name capsule (1 s: [ Antitussive mg Orally (no source.) Tessalon Three times phone) Perles 100 a day 1 mg] capsule as needed 8h Feb, 10 days Active dexamethaso dexamethaso Corticoster 12 mg 01-04-20 Active no Dexamethason no ne 1 mg ne oid 17 information e 1 MG name oral tablet Translation Orally One (no (1 source.) s: [ time between phone) Dexamethaso 11pm and 12 ne 1 MG] am night before labs 1 tablet Dec, 1 dose Active dextrometho Dextrometho Uncompetiti 15 Active no Tussin C ough no rphan rphan ve mg/mL information 15 MG/5ML name hydrobromid Translation N-methyl-D- Orally every (no e 3 mg/ml s: [ Tussin aspartate 6 hrs 5 ml phone) oral Cough 15 Receptor as needed 6h solution (1 MG/5ML] Antagonist, Active source.) Sigma-1 Agonist predniSONE predniSONE no 20 mg 03-18-20 Active no Predn iSONE no 20 mg oral Translation information 18 information 20 mg O rally name tablet (1 s: [ Once a day 1 (no source.) PredniSONE tablet 24h phone) 20 mg] Feb, 5 days Active no tiotropium Anticholine 18 ug 07-19-19 Active take 1 Tiot ropium no information rgic 18 capsule by [place] name (2 inhalation Monohydrate (no sources.) once daily 18 MCG phone) Inhalation Once a day 1 capsule 24h Jun, Active no triamcinolo Corticoster 1 Active take 1 Nasacort no information ne oid puff(s puff(s) Allergy 24HR na me (2 Translation ) nasal route 55 MCG/ACT (no sources.) s: [ once daily Nasally Once phone) Nasacort a day 1 puff Allergy in each 24HR 55 nostril 24h MCG/ACT] Active Problems Problem Normalized Date of Normalized Normalized Provider Fac ility Classification Problem(s) Problem Problem Problem Sta tus Onset/Resoluti Duration on Residual Acquired 06-11-2019 - Episodic Active LAMONT ASHLEY [facility] Via codes; absence of , MD [place] unclassified other Hospital - (6 sources.) specified [place] parts of ([address]) digestive tract Other and Benign 06-11-2019 - Episodic Active CESARNINA RYAN , [facility] Via unspecified neoplasm of [facility] benign ascending Hospital - neoplasm (5 colon [place] sources.) (32533) Other and Benign 06-11-2019 - Episodic Active CESARNINA RYAN [facility] Via unspecified neoplasm of [facility] benign descending [facility] - neoplasm (5 colon [place] sources.) (69184) Other Body mass Chronic Active RENEE YOO [facility] Via nutritional; index (BMI) , MD [place] endocrine; and 34.0-34.9, Hospital - metabolic adult [place] disorders (6 (94159) sources.) Calculus of Calculus of Episodic Active LAMONT ASHLEY [facility] Via urinary tract kidney , MD [place] (2 sources.) [facility] (65193) Prolapse of Cystocele, Chronic Active TIFFANIE FENECH [facility] Via female genital midline , DO [place] organs (20 Translations: Hospital - sources.) [ RECTOCELE, [place] UTEROVAG (77648) PROLAPS-INCOMP L, RECTOCELE] Esophageal Esophagitis, 06-11-2019 - Episodic Active CESAR DELM AN , [facility] Via disorders (5 unspecified DO Dianai sources.) [facility] (02502) Residual Family history 06-11-2019 - Episodic Active CESAR DELM AN , [facility] Via codes; of diabetes DO [facility] unclassified mellitus Hospital - (4 sources.) [place] () Residual Family history 06-11-2019 - Episodic Active CESAR DELM AN , [facility] Via codes; of ischemic DO [facility] unclassified heart disease Hospital - (4 sources.) and other [place] diseases of (10613) the circulatory system Residual Family history 06-11-2019 - Episodic Active CESAR DELM AN , [facility] Via codes; of other DO [facility] unclassified diseases of Hospital - (4 sources.) the [place] respiratory (83177) system Substance-rela Nicotine Chronic Active RENEE YOO [facility] Via rohan disorders dependence, , MD [place] (6 sources.) cigarettes, Hospital - uncomplicated [place] ([address]79) Other Obesity, Chronic Active RENEE YOO [facility] Via nutritional; unspecified , MD [place] endocrine; and Hospital - metabolic [place] disorders (6 (46277) sources.) Hemorrhoids (5 Other 06-11-2019 - Episodic Active CESAR DELM AN , [facility] Via sources.) hemorrhoids DO [facility] (77688) Other Other long 06-11-2019 - Episodic Active RENEE Angeles [facility] Via aftercare (10 term (current) , MD [place] sources.) drug therapy [facility] () Other Other 06-11-2019 - Episodic Active LAMONT RAMIREZ [facility] Via connective specified soft MD [place] tissue disease tissue [facility] - (3 sources.) disorders [place] () Other Personal Episodic Active GHAAZL GAUTHIER [facility] Via gastrointestin history of RAKESH [facility] al disorders other diseases Hospital - (9 sources.) of the [place] digestive (37542) system Other and Polyp of colon 06-11-2019 - Episodic Active CESAR DEL MAN , [facility] Via unspecified [facility] benign Hospital - neoplasm (5 [place] sources.) (93036) Other upper Polyp of Episodic Active Doctor [facility] respiratory larynx [facility] disease (1 Translations: of [facility] source.) [ Laryngeal [place] (32705) polyp] Other upper Polyp of vocal 06-11-2019 - Episodic Active CESAR NICHOLSON , [facility] Via respiratory cord and DO [place] disease (5 larynx Hospital - sources.) [place] (83372) Other diseases Prolapsed Episodic Active TIFFANIE PÉREZ [facility] Via of bladder and urethral , DO [place] urethra (8 mucosa Hospital - sources.) [place] ([address]64) Immunizations Screening Episodic [facility] and screening examination , DO [place] for infectious for other Hospital - disease (8 specified [place] sources.) bacterial and (11888) spirochetal diseases Other bone Segmental and Episodic Active Doctor Communi ty disease and somatic [facility] musculoskeleta dysfunction of of [facility] l deformities lumbar region [place] (05584) (6 sources.) Translations: [ - Segmental dysfunction of lumbar region M99.03] Other bone Segmental and Episodic Active Doctor Communi ty disease and somatic [facility] musculoskeleta dysfunction of of [place] l deformities sacral region [place] (99486) (6 sources.) Translations: [ - Segmental dysfunction of sacral region M99.04] Other bone Segmental and Episodic Active Doctor Communi ty disease and somatic [facility] musculoskeleta dysfunction of of [facility] l deformities thoracic [place] (56893) (6 sources.) region Translations: [ - Segmental dysfunction of thoracic region M99.02] Other and Tubular Episodic Active Doctor Community unspecified adenoma [facility] benign Translations: of [facility] neoplasm (1 [ Tubular [place] (53911) source.) adenoma] Gastritis and Unspecified 06-11-2019 - Chronic Active C[facility]AR [facility] Via duodenitis (5 chronic DO Krista sources.) gastritis Hospital - without [place] bleeding (36403) Procedures Procedure Normalized Procedure Procedure Result Performer Facility Date 02-14-2017 Assay of aldosterone no information no name (no ameya ne) [facility] 02-14-2017 [place] (78837) - 02-14-2017 02-14-2017 Assay of renin no information no name (no phone) [facility] 02-14-2017 [place] (80459) - 02-14-2017 12-12-2011 Assay of thyroid no information no name (no phone) [facility] stimulating hormone [facility] tsh [place] (12032) 12-12-2011 Blood count complete no information no name (no ameya ne) [facility] auto&auto difrntl wbc [facility] (49055) 01-05-2014 Collection venous no information no name (no phone) [facility] blood venipuncture [facility] (35440) 12-12-2011 Collection venous no information no name (no phone) [facility] blood venipuncture [facility] (07812) 02-14-2017 Comprehen metabolic no information no name (no phon e) [facility] - [facility] 02-14-2017 [place] (41122) - 02-14-2017 12-12-2011 Comprehensive no information no name (no phone) [facility] (17868) 01-05-2014 Lipid panel no information no name (no phone) Comm [facility] (78374) 07-10-2017 Radex hip unilateral no information no name (no ameya ne) [facility] with pelvis 2-3 views [facility] (00835) 02-14-2017 Routine venipuncture no information no name (no ameya ne) [facility] 02-14-2017 [place] (12289) - 02-14-2017 01-03-2017 Tobacco-use psychosocial rehabilitation counselor no information no name (no phon e) [facility] 3-10 min [facility] (82206) 02-14-2017 Total cortisol no information no name (no phone) [facility]2017 [place] (06626) - 02-14-2017 02-14-2017 WBC (Leukocytes) no information no name (no phone) [facility] 02-14-2017 [place] (14971) - 02-14-2017 Immunizations The data below is from unstructured sourcesNo immunization records. No Known Immunizations No Known Immunizations No Known Immunizations No Known Immunizations No Known Immunizations No Known Immunizations No Known Immunizations No Known Immunizations No Known Immunizations No Known Immunizations No Known Immunizations No Known Immunizations No Known Immunizations No Known Immunizations No Known Immunizations No Known Immunizations No Known Immunizations No Known Immunizations No Known Immunizations No Known Immunizations No Known Immunizations No Known Immunizations No Known Immunizations No Known Immunizations No Known Immunizations No Known Immunizations No Known Immunizations No Known Immunizations No Known Immunizations No Known Immunizations No Known Immunizations No Known Immunizations No Known Immunizations No Known Immunizations No Known Immunizations No Known Immunizations No Known Immunizations No Known Immunizations No Known Immunizations No Known Immunizations No Known Immunizations No Known Immunizations No Known Immunizations No Known Immunizations No Known Immunizations No Known Immunizations No Known Immunizations No Known Immunizations No Known Immunizations No Known Immunizations No Known Immunizations No Known Immunizations Results Test Name Value Interpretation Reference Range Date Time Fa cility (Normalized) (Normalized) (Medline Reference) ultrasound : abdomen, limited (specify organ) on null NEGATED: no information (no code) [facility] High[facility]ed row [facility] of Laboratory [facility] Studies (30780) No panel information on 2019-06-02 Albumin 3.8 g/dL (N) 3.4 - 5.4 g/dL [facility] [Mass/Vol] [facility] (04653) Alpha 1 globulin 0.3 g/dL (N) 0.1 - 0.3 g/dL [facility] [Mass/Vol] [facility] (63827) Alpha 2 globulin 0.9 g/dL (N) 0.6 - 1 g/dL [facility] [Mass/Vol] [facility] (79857) Basophils (Bld) 0.062 10*3/uL (N) 0 - 0.3 10*3/uL [facility] [#/Vol] [facility] (32567) Basophils/100 0.5 % (N) 0.5 - 1 % [facility] alth WBC (Bld) [facility] (14863) Beta 1 globulin 0.7 g/dL (H) [facility] [Mass/Vol] [facility] (24166) Beta 2 globulin 0.4 g/dL (N) [facility] [Mass/Vol] [facility] (40405) Calcium 9.2 mg/dL (N) 8.5 - 10.2 mg/dL [facility] [Mass/Vol] [facility] (18899) Chloride 94 mmol/L (L) 95 - 106 mmol/L [facility] [Moles/Vol] [facility] (52980) CO2 [Moles/Vol] 39 mmol/L (H) 23 - 29 mmol/L [facility] (18673) Creatinine (U) 62 mg/dL (N) [facility] h [Mass/Vol] [facility] (47303) Creatinine 1.01 mg/dL (N) [facility] h [Mass/Vol] [facility] (82808) Eosinophils 0.037 10*3/uL (N) 0.05 - 0.5 [facility] He alth (Bld) [#/Vol] 10*3/uL [facility] (84748) Eosinophils/100 0.3 % (N) 1 - 4 % [facility] WBC (Bld) [facility] (63370) Erythrocyte 14.7 % (N) 11.6 - 14.6 % [facility] ealth distribution [facility] width (RBC) [facility] [Ratio] (38939) Gamma globulin 0.9 g/dL (N) 0.7 - 1.6 g/dL [facility] [Mass/Vol] [facility] (86172) GFR/1.73 sq M 73 (N) 90 - 120 [facility] alth predicted among mL/min/{1.73_m2} mL/min/{1.73_m2} Center o f [facility] blacks MDRD [facility] (S/P/Bld) [Vol (57157) rate/Area] GFR/1.73 sq 63 (N) 90 - 120 [facility] th M.predicted MDRD mL/min/{1.73_m2} mL/min/{1.73_m2} [facility] (S/P/Bld) [Vol [facility] rate/Area] (55494) Glucose 97 mg/dL (N) 60 - 125 mg/dL [facility] [Mass/Vol] [facility] (06335) Hematocrit (Bld) 49.4 % (H) 36.1 - 50.3 % [facility] [Volume [facility]] [facility] (90781) Hemoglobin (Bld) 15.4 g/dL (N) 12.1 - 17.2 g/dL [facility] [Mass/Vol] [facility] (97271) Lymphocytes 1.218 10*3/uL (N) 0.9 - 2.9 Community He alth (Bld) [#/Vol] 10*3/uL [facility] (04362) Lymphocytes/100 9.9 % (N) 20 - 40 % [facility] WBC (Bld) [facility] (15756) MCH (RBC) 26.9 pg (L) 27 - 31 pg [facility] [Entitic mass] [facility] (90487) MCHC (RBC) 31.2 g/dL (L) 32 - 36 g/dL [facility] He alth [Mass/Vol] [facility] (93170) MCV (RBC) 86.4 fL (N) 80 - 100 fL [facility] Hea lth [Entitic vol] [facility] (39927) Monocytes (Bld) 0.726 10*3/uL (N) 0.3 - 0.9 [facility] [#/Vol] 10*3/uL [facility] (88397) Monocytes/100 5.9 % (N) 2 - 8 % [facility] alth WBC (Bld) [facility] (70314) Neutrophils 10.258 10*3/uL (H) 1.7 - 7 10*3/uL [facility] (Bld) [#/Vol] [facility] (13018) Neutrophils/100 83.4 % (N) 40 - 60 % [facility] WBC (Bld) [facility] (42596) Platelet mean 10.0 fL (N) 7.2 - 11.7 fL [facility] volume (Bld) [facility] [Entitic vol] [facility] (18212) Platelets (Bld) 348 10*3/uL (N) 150 - 450 [facility] [#/Vol] 10*3/uL [facility] (17242) Potassium 4.5 mmol/L (N) 3.7 - 5.2 mmol/L [facility] [Moles/Vol] [facility] (03748) Protein (U) 17 mg/dL (N) 0 - 20 mg/dL [facility] alth [Mass/Vol] [facility] (11658) Protein 6.9 g/dL (N) 6.4 - 8.3 g/dL [facility] [Mass/Vol] [facility] (23253) Protein no information (no code) [facility] [Interp] [facility] (52384) Protein/Creatini 274 (H) [facility] ne (U) [Mass [facility] ratio] [facility] (96117) RBC (Bld) 5.72 10*6/uL (H) 4.2 - 6.1 [facility] [#/Vol] 10*6/uL [facility] (32417) Sodium 141 mmol/L (N) 135 - 145 mmol/L [facility] [Moles/Vol] [facility] (89468) Urea nitrogen 20 mg/dL (N) 7 - 20 mg/dL [facility] [Mass/Vol] [facility] (95849) Urea NOT APPLICABLE (no code) [facility] nitrogen/Creatin [facility] ine [Mass ratio] [facility] (63699) WBC (Bld) 12.3 10*3/uL (H) 3.5 - 10.5 [facility] [#/Vol] 10*3/uL [facility] (28843) No panel information on 2019-05-05 CLINICAL MENOPAUSAL (N) [facility] INFORMATION: [facility] (65727) COMMENT no information (no code) [facility] (23594) Videogame Designer Cyto no information (N) [facility] stain Nom [facility] (Cvx/Vag) [ID] [facility] (64899) Date of previous NONE (N) [facility] biopsy [facility] (17409) Date of previous no information (N) [facility] PAP smear [facility] (75063) HPV E6+E7 mRNA Not Detected (N) [facility] LORENZO+probe Ql [facility] (Cvx) [facility] (04034) Last menstrual MENOPAUSAL (N) [facility] period start [facility] date [facility] (17445) Microscopic no information (N) [facility] observation Cyto [facility] stain Nom (Cvx) [facility] (51861) Specimen source Cervix (N) [facility] Cyto stain Nom [facility] (Cvx/Vag) [facility] (66954) Statement of no information (N) [facility] adequacy Cyto [facility] stain (Cvx/Vag) [facility] [Interp] (31814) No panel information on 2019-04-22 Albumin 4.2 g/dL (N) 3.4 - 5.4 g/dL [facility] [Mass/Vol] [facility] (18353) Albumin/Globulin 1.4 {ratio} (N) 1 - 2.5 {ratio} Comm Critical access hospital [Mass ratio] [facility] (48960) ALP [Catalytic 81 U/L (N) 44 - 147 U/L [facility] activity/Vol] [facility] (24733) ALT [Catalytic 11 U/L (N) 4 - 40 U/L [facility] ealt activity/Vol] [facility] (20095) AST [Catalytic 12 U/L (N) 10 - 34 U/L [facility] activity/Vol] [facility] (77172) Basophils (Bld) 0.039 10*3/uL (N) 0 - 0.3 10*3/uL [facility] [#/Vol] [facility] (61513) Basophils/100 0.5 % (N) 0.5 - 1 % [facility] alth WBC (Bld) [facility] (04005) Bilirubin 0.4 mg/dL (N) 0.1 - 1.2 mg/dL [facility] [Mass/Vol] [facility] (25628) Calcium 9.4 mg/dL (N) 8.5 - 10.2 mg/dL [facility] [Mass/Vol] [facility] (27590) Chloride 97 mmol/L (L) 95 - 106 mmol/L [facility] [Moles/Vol] [facility] (36710) CO2 [Moles/Vol] 38 mmol/L (H) 23 - 29 mmol/L [facility] (99613) Creatinine 1.13 mg/dL (H) [facility] [Mass/Vol] [facility] (64071) Eosinophils 0.2 10*3/uL (N) 0.05 - 0.5 [facility] Heal th (Bld) [#/Vol] 10*3/uL [facility] (08759) Eosinophils/100 2.6 % (N) 1 - 4 % [facility] WBC (Bld) [facility] (38619) Erythrocyte 13.6 % (N) 11.6 - 14.6 % [facility] ealth distribution [facility] width (RBC) [facility] [Ratio] (03417) GFR/1.73 sq M 64 (N) 90 - 120 [facility] He alth predicted among mL/min/{1.73_m2} mL/min/{1.73_m2} [facility] blacks MDRD [facility] (S/P/Bld) [Vol (60338) rate/Area] GFR/1.73 sq 55 (L) 90 - 120 [facility] th M.predicted MDRD mL/min/{1.73_m2} mL/min/{1.73_m2} [facility] (S/P/Bld) [Vol [facility] rate/Area] (18928) Globulin (S) 2.9 g/dL (N) 2 - 3.5 g/dL [facility] ealt [Mass/Vol] [facility] (32005) Glucose 123 mg/dL (H) 60 - 125 mg/dL [facility] [Mass/Vol] [facility] (35182) HbA1c (Bld) 6.3 (H) [facility] h [Mass fraction] [facility] (04683) Hematocrit (Bld) 49.6 % (H) 36.1 - 50.3 % [facility] (96608) Hemoglobin (Bld) 15.8 g/dL (H) 12.1 - 17.2 g/dL [facility] [Mass/Vol] [facility] (83780) Lymphocytes 1.679 10*3/uL (N) 0.9 - 2.9 [facility] alth (Bld) [#/Vol] 10*3/uL [facility] (80978) Lymphocytes/100 21.8 % (N) 20 - 40 % [facility] WBC (Bld) [facility] (82672) MCH (RBC) 28.1 pg (N) 27 - 31 pg [facility] [Entitic mass] [facility] (58295) MCHC (RBC) 31.9 g/dL (L) 32 - 36 g/dL [facility] alth [Mass/Vol] [facility] (74350) MCV (RBC) 88.1 fL (N) 80 - 100 fL [facility] Hea lth [Entitic vol] [facility] (13178) Monocytes (Bld) 0.631 10*3/uL (N) 0.3 - 0.9 [facility] [#/Vol] 10*3/uL [facility] (15939) Monocytes/100 8.2 % (N) 2 - 8 % [facility] alth WBC (Bld) [facility] (25985) Natriuretic 82 pg/mL (N) 0 - 100 pg/mL [facility] ealth peptide B (Bld) [facility] [Mass/Vol] [facility] (65032) Neutrophils 5.151 10*3/uL (N) 1.7 - 7 10*3/uL [facility] [facility] (Bld) [#/Vol] [facility] (82561) Neutrophils/100 66.9 % (N) 40 - 60 % [facility] WBC (Bld) [facility] (93517) Platelet mean 9.9 fL (N) 7.2 - 11.7 fL [facility] volume (Bld) [facility] [Entitic vol] [facility] (28606) Platelets (Bld) 331 10*3/uL (N) 150 - 450 [facility] [#/Vol] 10*3/uL [facility] (64160) Potassium 4.3 mmol/L (N) 3.7 - 5.2 mmol/L [facility] [Moles/Vol] [facility] (80558) Protein 7.1 g/dL (N) 6.4 - 8.3 g/dL [facility] [Mass/Vol] [facility] (78133) RBC (Bld) 5.63 10*6/uL (H) 4.2 - 6.1 [facility] [#/Vol] 10*6/uL [facility] () Sodium 142 mmol/L (N) 135 - 145 mmol/L [facility] [Moles/Vol] [facility] (63145) TSH Qn 2.13 m[IU]/L (N) 0.4 - 4 m[IU]/L [facility] () Urea nitrogen 20 mg/dL (N) 7 - 20 mg/dL [facility] [Mass/Vol] [facility] () Urea 18 mg/mg (N) 6 - 22 mg/mg [facility] He alth nitrogen/Creatin [facility] [Mass ratio] [facility] () WBC (Bld) 7.7 10*3/uL (N) 3.5 - 10.5 [facility] [#/Vol] 10*3/uL [facility] (01228) No panel information on 2018-12-23 Albumin 3.8 g/dL (N) 3.4 - 5.4 g/dL [facility] [Mass/Vol] [facility] () Albumin/Globulin 1.4 {ratio} (N) 1 - 2.5 {ratio} [facility] [Mass ratio] [facility] () ALP [Catalytic 63 U/L (N) 44 - 147 U/L [facility] activity/Vol] [facility] (86380) ALT [Catalytic 28 U/L (N) 4 - 40 U/L [facility] activity/Vol] [facility] (51844) AST [Catalytic 19 U/L (N) 10 - 34 U/L [facility] activity/Vol] [facility] () Basophils (Bld) 0.053 10*3/uL (N) 0 - 0.3 10*3/uL [facility] [#/Vol] [facility] (95010) Basophils/100 0.7 % (N) 0.5 - 1 % [facility] WBC (Bld) [facility] (97389) Bilirubin 0.4 mg/dL (N) 0.1 - 1.2 mg/dL [facility] [Mass/Vol] [facility] (13311) Calcium 9.6 mg/dL (N) 8.5 - 10.2 mg/dL [facility] [Mass/Vol] [facility] (66991) Chloride 101 mmol/L (N) 95 - 106 mmol/L [facility] [Moles/Vol] [facility] (28633) Cholesterol 235 mg/dL (H) 180 - 200 mg/dL [facility] [Mass/Vol] [facility] (21793) Cholesterol in 42 mg/dL (L) [facility] h HDL [Mass/Vol] [facility] (34254) Cholesterol in 163 mg/dL (H) 0 - 100 mg/dL [facility] LDL [Mass/Vol] [facility] (28433) Cholesterol non 193 mg/dL (H) [facility] HDL [Mass/Vol] [facility] (13099) Cholesterol.tota 5.6 {ratio} (H) [facility] Hea lth l/Cholesterol in [facility] HDL [Mass ratio] [facility] (56563) CO2 [Moles/Vol] 37 mmol/L (H) 23 - 29 mmol/L [facility] (13897) Creatinine 1.04 mg/dL (N) [facility] [Mass/Vol] [facility] (20235) Eosinophils 0.228 10*3/uL (N) 0.05 - 0.5 [facility] (Bld) [#/Vol] 10*3/uL [facility] (66649) Eosinophils/100 3.0 % (N) 1 - 4 % [facility] WBC (Bld) [facility] (28225) Erythrocyte 13.2 % (N) 11.6 - 14.6 % [facility] distribution [facility] width (RBC) [facility] [Ratio] (80692) GFR/1.73 sq M 71 (N) 90 - 120 [facility] He alth predicted among mL/min/{1.73_m2} mL/min/{1.73_m2} [facility] MDRD [facility] (S/P/Bld) [Vol (33956) rate/Area] GFR/1.73 sq 61 (N) 90 - 120 [facility] th M.predicted MDRD mL/min/{1.73_m2} mL/min/{1.73_m2} [facility] (S/P/Bld) [Vol [facility] rate/Area] (50394) Globulin (S) 2.8 g/dL (N) 2 - 3.5 g/dL [facility] ealt [Mass/Vol] [facility] (81181) Glucose 99 mg/dL (N) 60 - 125 mg/dL [facility] [Mass/Vol] [facility] (14345) Hematocrit (Bld) 45.0 % (N) 36.1 - 50.3 % [facility] [Volume [facility] (02193) Hemoglobin (Bld) 14.9 g/dL (N) 12.1 - 17.2 g/dL [facility] [Mass/Vol] [facility] (00510) Lymphocytes 1.786 10*3/uL (N) 0.9 - 2.9 [facility] He alth (Bld) [#/Vol] 10*3/uL [facility] (84315) Lymphocytes/100 23.5 % (N) 20 - 40 % [facility] WBC (Bld) [facility] (39742) MCH (RBC) 30.7 pg (N) 27 - 31 pg [facility] [Entitic mass] [facility] (27147) MCHC (RBC) 33.1 g/dL (N) 32 - 36 g/dL [facility] [Mass/Vol] [facility] (41324) MCV (RBC) 92.8 fL (N) 80 - 100 fL [facility] Hea lt [Entitic vol] [facility] (06112) Monocytes (Bld) 0.692 10*3/uL (N) 0.3 - 0.9 [facility] [#/Vol] 10*3/uL [facility] (91149) Monocytes/100 9.1 % (N) 2 - 8 % [facility] He alth WBC (Bld) [facility] (94369) Neutrophils 4.841 10*3/uL (N) 1.7 - 7 10*3/uL [facility] (Bld) [#/Vol] [facility] (61642) Neutrophils/100 63.7 % (N) 40 - 60 % [facility] WBC (Bld) [facility] (61126) Platelet mean 9.7 fL (N) 7.2 - 11.7 fL [facility] volume (Bld) [facility] [Entitic vol] [facility] (74178) Platelets (Bld) 287 10*3/uL (N) 150 - 450 [facility] [#/Vol] 10*3/uL [facility] (08077) Potassium 4.5 mmol/L (N) 3.7 - 5.2 mmol/L [facility] [Moles/Vol] [facility] (94765) Protein 6.6 g/dL (N) 6.4 - 8.3 g/dL [facility] [Mass/Vol] [facility] (19130) RBC (Bld) 4.85 10*6/uL (N) 4.2 - 6.1 [facility] lth [#/Vol] 10*6/uL [facility] (85714) Sodium 142 mmol/L (N) 135 - 145 mmol/L [facility] [Moles/Vol] [facility] (81952) Triglyceride 153 mg/dL (H) 0 - 150 mg/dL [facility] [Mass/Vol] [facility] (81750) Urea nitrogen 15 mg/dL (N) 7 - 20 mg/dL [facility] [Mass/Vol] [facility] (89850) Urea NOT APPLICABLE (no code) [facility] nitrogen/Creatin [facility] [Mass ratio] [facility] (90955) WBC (Bld) 7.6 10*3/uL (N) 3.5 - 10.5 [facility] th [#/Vol] 10*3/uL [facility] (59583) No panel information on 2018-01-08 Albumin mass 4.2 g/dL (N) 3.4 - 5.4 g/dL [facility] (02068) Albumin/Globulin 1.4 (N) [facility] lt mass ratio [facility] (00395) ALP enzyme 79 U/L (N) 44 - 147 U/L [facility] He alth act/vol [facility] (02798) ALT enzyme 17 U/L (N) 4 - 40 U/L [facility] act/vol [facility] (78061) AST enzyme 16 U/L (N) 10 - 34 U/L [facility] act/[facility] (18689) Basophils Auto 0.042 10*3/uL (N) 0 - 0.3 10*3/uL [facility] #/vol (Bld) [facility] (72008) Basophils/100 0.6 % (N) 0.5 - 1 % [facility] WBC Auto (Bld) [facility] (48773) Bilirubin mass 0.5 mg/dL (N) 0.1 - 1.2 mg/dL [facility] (46332) Calcium mass 9.6 mg/dL (N) 8.5 - 10.2 mg/dL [facility] (01055) Chloride molar 102 mmol/L (N) 95 - 106 mmol/L [facility] (74008) Cholesterol in 31 mg/dL (L) [facility] HDL mass [facility] (67072) Cholesterol in 107 (H) [facility] h LDL mass conc [facility] (25578) Cholesterol mass 168 mg/dL (N) 180 - 200 mg/dL [facility] (63516) Cholesterol non 137 (H) [facility] HDL mass [facility] (56268) Cholesterol.tota 5.4 (H) [facility] l/Cholesterol in [facility] HDL mass [facility] (02048) CK enzyme 109 U/L (N) [facility] act/vol [facility] (43651) CO2 molar conc 31 mmol/L (N) 23 - 29 mmol/L [facility] (46922) Creatinine mass 1.00 mg/dL (N) [facility] conc [facility] (31770) Eosinophils Auto 0.133 10*3/uL (N) 0.05 - 0.5 [facility] #/vol (Bld) 10*3/uL [facility] (85268) Eosinophils/100 1.9 % (N) 1 - 4 % [facility] WBC Auto (Bld) [facility] (62922) Erythrocyte 12.7 % (N) 11.6 - 14.6 % [facility] ealt distribution [facility] Auto Ratio [facility] (RBC) (38841) GFR/1.73 sq M 75 (N) 90 - 120 [facility] predicted among mL/min/{1.73_m2} mL/min/{1.73_m2} [facility] MDRD vol [facility] rate/area (57728) (S/P/Bld) GFR/1.73 sq 65 (N) 90 - 120 [facility] M.predicted MDRD mL/min/{1.73_m2} mL/min/{1.73_m2} [facility] rate/area [facility] (41314) Globulin 3.0 (N) [facility] Calculated mass [facility] (S) [facility] (60687) Glucose mass 93 mg/dL (N) 60 - 125 mg/dL [facility] (12080) Hematocrit Auto 42.8 % (N) 36.1 - 50.3 % [facility] Volume Fraction [facility] (Bld) [facility] (86939) Hemoglobin mass 14.4 g/dL (N) 12.1 - 17.2 g/dL [facility] conc (Bld) [facility] (28851) LYME AB SCREEN <0.90 (N) [facility] (63446) Lymphocytes Auto 2.03 10*3/uL (N) 0.9 - 2.9 [facility] #/vol (Bld) 10*3/uL [facility] (42755) Lymphocytes/100 29.0 % (N) 20 - 40 % [facility] Health WBC Auto (Bld) [facility] (96973) MCH Auto Entitic 30.9 pg (N) 27 - 31 pg [facility] mass (RBC) [facility] (00891) MCHC Auto mass 33.6 g/dL (N) 32 - 36 g/dL [facility] Health conc (RBC) [facility] (63883) MCV Auto Entitic 91.8 fL (N) 80 - 100 fL [facility] volume (RBC) [facility] (92795) Monocytes Auto 0.511 10*3/uL (N) 0.3 - 0.9 [facility] #/vol (Bld) 10*3/uL [facility] (78755) Monocytes/100 7.3 % (N) 2 - 8 % [facility] He alth WBC Auto (Bld) [facility] (07173) Neutrophils Auto 4.284 10*3/uL (N) 1.7 - 7 10*3/uL [facility] #[facility] (Bld[facility] (76805) Neutrophils/100 61.2 % (N) 40 - 60 % [facility] WBC Auto (Bld) [facility] (84058) Platelet mean 9.5 fL (N) 7.2 - 11.7 fL [facility] volume Auto [facility] Entitic [facility] (Bld) (66406) Platelets Auto 310 10*3/uL (N) 150 - 450 [facility] #/vol (Bld) 10*3/uL [facility] (17516) Potassium molar 4.0 mmol/L (N) 3.7 - 5.2 mmol/L [facility] conc [facility] (79832) Protein mass 7.2 g/dL (N) 6.4 - 8.3 g/dL [facility] conc [facility] (69920) RBC Auto #/vol 4.66 10*6/uL (N) 4.2 - 6.1 [facility] (Bld) 10*6/uL [facility] (31258) Sodium molar 143 mmol/L (N) 135 - 145 mmol/L [facility] conc [facility] (89291) Triglyceride 187 mg/dL (H) 0 - 150 mg/dL [facility] (46333) Urea nitrogen 16 mg/dL (N) 7 - 20 mg/dL [facility] (38505) Urea NOT APPLICABLE (no code) [facility] Healt h nitrogen/Creatin [facility] (36585) WBC Auto #/vol 7.0 10*3/uL (N) 3.5 - 10.5 [facility] H ealth (Bld) 10*3/uL [facility] (76527) No panel information on 2017-02-20 Aldosterone 6.6 (no code) 02-20-2017 Not Available [Mass/Vol] 03:59-0400 (33989) Renin (P) 0.300 (no code) 02-20-2017 Not Available [Catalytic 15:26-0400 (96576) activity/Vol] No panel information on 2017-02-17 Cortisol AM peak 1.4 (L) 02-17-2017 Not Avail able specimen 17:00-0400 (15599) [Mass/Vol] No panel information on 2017-02-15 Albumin 4.5 g/dL (no code) 3.4 - 5.4 g/dL 02-15-2017 Not Niurka ilable [Mass/Vol] 07:48-0400 (65122) Albumin/Globulin 1.7 {ratio} (no code) 1 - 2.5 {ratio} 7 Not Available [Mass ratio] 07:51-0400 (77301) ALP [Catalytic 74 U/L (no code) 44 - 147 U/L 02-15-2017 Not Available activity/Vol] 07:51-0400 (12792) ALT [Catalytic 15 U/L (no code) 4 - 40 U/L 02-15-2017 Not Av ailable activity/Vol] 07:51-0400 (85965) AST [Catalytic 13 U/L (no code) 10 - 34 U/L 02-15-2017 Not A vailable activity/Vol] 07:51-0400 (89019) Basophils (Bld) 0.0 10*3/uL (no code) 0 - 0.3 10*3/uL 02-15-2017 Not Available [#/Vol] 07:32-0400 (88543) Basophils/100 0 % (no code) 0.5 - 1 % 02-15-2017 Not Avai lable WBC (Bld) 07:320400 (73031) Bilirubin 0.3 mg/dL (no code) 0.1 - 1.2 mg/dL 02-15-2017 Not Av ailable [Mass/Vol] 07:48-0400 (24232) Calcium 9.6 mg/dL (no code) 8.5 - 10.2 mg/dL 02-15-2017 Not A vailable [Mass/Vol] 07:480400 (10365) Chloride 98 mmol/L (no code) 95 - 106 mmol/L 02-15-2017 Not Av ailable [Moles/Vol] 07:33-0400 (77812) Cholesterol 263 mg/dL (H) 180 - 200 mg/dL 02-15-2017 Not Available [Mass/Vol] 08:000400 (20502) Cholesterol in 39 mg/dL (L) 02-15-2017 Not Availab le HDL [Mass/Vol] 09:040400 (87238) Cholesterol in 201 mg/dL (H) 0 - 100 mg/dL 02-15-2017 Not Available LDL [Mass/Vol] 09:040400 (24908) Cholesterol in 23 mg/dL (no code) 02-15-2017 Not Availab le VLDL [Mass/Vol] 08:00-0400 (22649) CO2 [Moles/Vol] 27 mmol/L (no code) 23 - 29 mmol/L 02-15-2017 N ot Available 07:480400 (63197) Comment: Comment (no code) 02-15-2017 Not Available 09:040400 (30971) Creatinine 0.87 mg/dL (no code) 02-15-2017 Not Available [Mass/Vol] 07:51-0400 (20089) Eosinophils 0.0 10*3/uL (no code) 0.05 - 0.5 02-15-2017 Not Niurka ilable (Bld) [#/Vol] 10*3/uL 07:320400 (18960) Eosinophils/100 1 % (no code) 1 - 4 % 02-15-2017 Not Av ailable WBC (Bld) 07:320400 (80445) Erythrocyte 13.1 % (no code) 11.6 - 14.6 % 02-15-2017 Not Av ailable distribution 07:320400 (73062) width (RBC) [Ratio] GFR/1.73 sq 77 (no code) 02-15-2017 Not Available M.predicted 07:51-0400 (29900) CKD-EPI (S/P/Bld) [Vol rate/Area] GFR/1.73 sq 89 (no code) 02-15-2017 Not Available M.predicted 07:51-0400 (54430) CKD-EPI (S/P/Bld) [Vol rate/Area] Globulin (S) 2.6 g/dL (no code) 2 - 3.5 g/dL 02-15-2017 Not Av ailable [Mass/Vol] 07:51-0400 (73863) Glucose 110 mg/dL (H) 60 - 125 mg/dL 02-15-2017 Not Niurka ilable [Mass/Vol] 07:48-0400 (04075) Hematocrit (Bld) 43.3 % (no code) 36.1 - 50.3 % 02-15-2017 N ot Available [Volume 07:320400 (75112) fraction] Hemoglobin (Bld) 14.6 g/dL (no code) 12.1 - 17.2 g/dL 02-15-2017 Not Available [Mass/Vol] 07:320400 (24844) Immature 0.1 10*3/uL (no code) 0 - 0.2 10*3/uL 02-15-2017 Not Available granulocytes 07:320400 (25744) (Bld) [#/Vol] Immature 1 % (no code) 0 - 0.5 % 02-15-2017 Not Availabl e granulocytes/100 07:320400 (27076) WBC (Bld) Lymphocytes 1.6 10*3/uL (no code) 0.9 - 2.9 02-15-2017 Not Avai lable (Bld) [#/Vol] 10*3/uL 07:32-0400 (27558) Lymphocytes/100 22 % (no code) 20 - 40 % 02-15-2017 Not Av ailable WBC (Bld) 07:32-0400 (91511) MCH (RBC) 30.0 pg (no code) 27 - 31 pg 02-15-2017 Not Availab le [Entitic mass] 07:32-0400 (27942) MCHC (RBC) 33.7 g/dL (no code) 32 - 36 g/dL 02-15-2017 Not Avai lable [Mass/Vol] 07:32-0400 (46862) MCV (RBC) 89 fL (no code) 80 - 100 fL 02-15-2017 Not Availa ble [Entitic vol] 07:32-0400 (15356) Monocytes (Bld) 0.4 10*3/uL (no code) 0.3 - 0.9 02-15-2017 Not Available [#/Vol] 10*3/uL 07:32-0400 (22368) Monocytes/100 6 % (no code) 2 - 8 % 02-15-2017 Not Avai lable WBC (Bld) 07:32-0400 (87247) Neutrophils 5.1 10*3/uL (no code) 1.7 - 7 10*3/uL 02-15-2017 No t Available (Bld) [#/Vol] 07:32-0400 (34252) Neutrophils/100 70 % (no code) 40 - 60 % 02-15-2017 Not Av ailable WBC (Bld) 07:32-0400 (41233) Platelets (Bld) 366 10*3/uL (no code) 150 - 450 02-15-2017 Not Available [#/Vol] 10*3/uL 07:32-0400 (54758) Potassium 4.4 mmol/L (no code) 3.7 - 5.2 mmol/L 02-15-2017 Not Available [Moles/Vol] 07:41-0400 (03972) Protein 7.1 g/dL (no code) 6.4 - 8.3 g/dL 02-15-2017 Not Niur[place] ilable [Mass/Vol] 07:51-0400 (73903) RBC (Bld) 4.87 10*6/uL (no code) 4.2 - 6.1 02-15-2017 Not Avail able [#/Vol] 10*6/uL 07:32-0400 (87753) Sodium 141 mmol/L (no code) 135 - 145 mmol/L 02-15-2017 Not Available [Moles/Vol] 07:36-0400 (53183) Triglyceride 115 mg/dL (no code) 0 - 150 mg/dL 02-15-2017 Not A vailable [Mass/Vol] 08:00-0400 (17294) Urea nitrogen 13 mg/dL (no code) 7 - 20 mg/dL 02-15-2017 Not A vailable [Mass/Vol] 07:48-0400 (83792) Urea 15 mg/mg (no code) 6 - 22 mg/mg 02-15-2017 Not Avail able nitrogen/Creatin 07:51-0400 (68741) ine [Mass ratio] WBC (Bld) 7.2 10*3/uL (no code) 3.5 - 10.5 02-15-2017 Not Avail able [#/Vol] 10*3/uL 07:32-0400 (04821) renin & aldosterone, plasma on 2017-02-14 Aldosterone 6.6 (no code) 02-14-2017 [facility] 13:00-0400 [facility] (82098) Renin 0.300 ng/mL/h (no code) 0.3 - 3.7 02-14-2017 [facility] ng/mL/h 13:000400 [facility] (46760) lipid panel on 2017-02-14 Cholesterol 263 mg/dL (no code) 0 - 240 mg/dL 02-14-2017 [facility] 13:00-0400 [facility] (05615) Comment: no information (no code) 02-14-2017 [facility] ealt 13:000400 [facility] (14233) HDL Cholesterol 39 mg/dL (no code) 02-14-2017 [facility] 13:00-0400 [facility] (40293) LDL Cholesterol 201 mg/dL (no code) 0 - 100 mg/dL 02-14-2017 [facility] 13:00-0400 [facility] (65889) Triglyceride 115 mg/dL (no code) 0 - 150 mg/dL 02-14-2017 [facility] 13:00-0400 [facility] (78258) VLDL Cholesterol 23 (no code) 02-14-2017 [facility] Dionicio 13:00040 [facility] (74771) cortisol, serum-am on 2017-02-14 Cortisol - AM 1.4 (no code) 02-14-2017 [facility] 13:00040 [facility] (65431) cmp on 2017-02-14 Alanine 15 U/L (no code) 10 - 40 U/L 02-14-2017 [facility] aminotransferase 13:00040 Center of (ALT) [facility] (61487) Albumin 4.5 g/dL (no code) 3.5 - 5.5 g/dL 02-14-2017 [facility] 13:00040 [facility] (33453) Albumin/Globulin 1.7 {ratio} (no code) 0.8 - 2 {ratio} 7 [facility] Ratio 13:000400 [facility] (59714) Alkaline 74 U/L (no code) 44 - 147 U/L 02-14-2017 [facility] phosphatase 13:000400 Center of (ALP) [facility] (40628) Aspartate 13 U/L (no code) 10 - 34 U/L 02-14-2017 [facility] aminotransferase 13:00040 Center of (AST) [facility] (00810) Bilirubin 0.3 mg/dL (no code) 0.3 - 1.9 mg/dL 02-14-2017 [facility] (total) 13:00-0400 [facility] (29928) BUN/Creatinine 15 mg/mg (no code) 10 - 20 mg/mg 02-14-2017 [facility] Health Ratio 13:00-0400 [facility] (90834) Calcium 9.6 mg/dL (no code) 9 - 11 mg/dL 02-14-2017 [facility] 13:00040 [facility] (32903) Chloride 98 mmol/L (no code) 95 - 106 mmol/L 02-14-2017 [facility] 13:00-0400 [facility] (45014) CO2 27 mmol/L (no code) 23 - 29 mmol/L 02-14-2017 [facility] 13:00-0400 [facility] (38810) Creatinine 0.87 mg/dL (no code) 02-14-2017 [facility] 13:000400 [facility] (30957) eGFR (black) 89 (no code) 90 - [id number] 02-14-2017 [facility] mL/min/{1.73_m2} mL/min/{1.73_m2} 13:000400 [facility] (78227) eGFR (non-black) 77 (no code) 90 - [id number] 02-14-2017 [facility] mL/min/{1.73_m2} mL/min/{1.73_m2} 13:000400 [facility] (00718) Globulin 2.6 g/dL (no code) 2.1 - 3.9 g/dL 02-14-2017 [facility] 13:00-0400 [facility] (61550) Glucose 110 mg/dL (no code) 60 - 125 mg/dL 02-14-2017 [facility] 13:00-0400 [facility] (24588) Potassium 4.4 mmol/L (no code) 3.5 - 5.1 mmol/L 02-14-2017 [facility] 13:00-0400 [facility] (07529) Protein 7.1 g/dL (no code) 6.4 - 8.3 g/dL 02-14-2017 [facility] 13:00-0400 [facility] (70402) Sodium 141 mmol/L (no code) 135 - 147 mmol/L 02-14-2017 [facility] 13:00-0400 [facility] (54844) Urea nitrogen 13 mg/dL (no code) 7 - 20 mg/dL 02-14-2017 [facility] 13:00-0400 [facility] (66012) cbc on 2017-02-14 Basophils 0.0 10*3/uL (no code) 0 - 0.2 10*3/uL 02-14-2017 [facility] 13:00-0400 [facility] (85310) Basophils/100 0 % (no code) 0.5 - 1 % 02-14-2017 [facility] leukocytes 13:00-0400 [facility] (04724) Eosinophils 0.0 10*3/uL (no code) 0.05 - 1.5 02-14-2017 [facility] 10*3/uL 13:00-0400 [facility] (37886) Eosinophils/100 1 % (no code) 1 - 4 % 02-14-2017 [facility] leukocytes 13:00-0400 [facility] (31438) Erythrocytes 4.87 10*6/uL (no code) 4.2 - 6.1 02-14-2017 [facility] (RBC) 10*6/uL 13:00-0400 [facility] (10866) Hematocrit (HCT) 43.3 % (no code) 39 - 51 % 02-14-2017 [facility] 13:00-0400 [facility] (72573) Hemoglobin (HGB) 14.6 g/dL (no code) 12 - 18 g/dL 02-14-2017 [facility] 13:00-0400 [facility] (03663) Immature Grans 0.1 (no code) 02-14-2017 [facility] (Abs) 13:000400 [facility] (23845) Immature 1 (no code) 02-14-2017 [facility] Granulocytes 13:00-0400 [facility] (42087) Lymphocytes 1.6 10*3/uL (no code) 0.85 - 4.1 02-14-2017 [facility] 10*3/uL 13:00-0400 [facility] (47306) Lymphocytes/100 22 % (no code) 20 - 40 % 02-14-2017 [facility] leukocytes 13:00-0400 [facility] (97189) MCH 30.0 pg (no code) 27 - 31 pg 02-14-2017 [facility] 13:00-0400 [facility] (82888) MCHC 33.7 g/dL (no code) 32 - 36 g/dL 02-14-2017 [facility] 13:000400 [facility] (72832) MCV 89 fL (no code) 80 - 100 fL 02-14-2017 [facility] [id number] [facility] ([id number]) Monocytes 0.4 10*3/uL (no code) 0.2 - 1.1 02-14-2017 [facility] 10*3/uL [id number] [facility] ([id number]) Monocytes/100 6 % (no code) 2 - 8 % [facility] 13:00040 [facility] ([id number]) Neutrophils 5.1 10*3/uL (no code) 1.5 - 7.8 02-14-2017 [facility] 10*3/uL [id number] [facility] ([id number]) Neutrophils/100 70 % (no code) 40 - 60 % 02-14-2017 [facility] leukocytes [id number]:000400 [facility] ([id number]) Platelets 366 10*3/uL (no code) 150 - 400 02-14-2017 [facility] 10*3/uL 13:000400 [facility] ([id number]) RDW-CA 13.1 % (no code) 11 - 15 % 02-14-2017 [facility] 13:000400 [facility] ([id number]) WBC (Leukocytes) 7.2 10*3/uL (no code) 3.8 - 10.8 02-14-2017 [facility]*3/uL 13:000400 [facility] ([id number]) Vital Signs Vital Sign Value Interpretation Reference Date Time Care Prov ider Facility (Normalized) (Normalized) Range BMI (Body Mass 34.77 kg/m2 (no code) 15 - 25 kg/m2 03-18-2018 [facility]) 17:10-0500 MARCY [address] [facility] ([id number]) BMI (Body Mass 33.76 kg/m2 (no code) 15 - 25 kg/m2 01-07-2018 [facility] Index) 11:000400 12706 [facility] ([id number]) BMI (Body Mass 34.27 kg/m2 (no code) 15 - 25 kg/m2 07-28-2017 [facility] Index) 10:20-0400 47735 [facility] ([id number]) BMI (Body Mass 34.14 kg/m2 (no code) 15 - 25 kg/m2 07-10-2017 [facility] Index) 14:20-0400 06379 [facility] ([id number]) BMI (Body Mass 33.84 kg/m2 (no code) 15 - 25 kg/m2 01-03-2017 [facility] Index) 16:40-0400 89428 [facility] ([id number]) Body height 170.18 cm (no code) cm 07-19-2013 [facility] 17:16-0400 [facility] ([id number]) Body height 169.55 cm (no code) cm 12-12-2011 [facility] 14:40-0400 [facility] ([id number]) Body 97.9 [degF] (no code) 97.8 - 99.0 03-18-2018 [facility] Temperature [degF] 17:10-0500 MARCY [address] [facility] ([id number]) Body 97.7 [degF] (no code) 97.8 - 99.0 [facility]-07[facility]00762 [facility] ([id number]) Body 98.1 [degF] (no code) 97.8 - 99.0 07-28-2017 [facility] Temperature [degF] 10:200400 [facility]1493 [facility] ([id number]) Body 97.6 [degF] (no code) 97.8 - 99.0 07-10-2017 [facility] Temperature [degF] 14:200400 63507 [facility] ([id number]) Body 98.3 [degF] (no code) 97.8 - 99.0 01-03-2017 [facility] Temperature [degF] 16:40-[address] [place] [address] ([id number]) Body 97.7 [degF] (no code) 97.8 - 99.0 07-19-2013 [facility] temperature [degF] 17:16-0400 [facility] ([id number]) Body 98.3 [degF] (no code) 97.8 - 99.0 12-12-2011 [facility] temperature [degF] 14:40-0400 [facility] ([id number]) Body weight 101.06 kg (no code) kg 07-19-2013 [facility] 17:16-0400 [facility] ([id number]) Body weight 91.4 kg (no code) kg 12-12-2011 [facility] 14:40-0400 [facility] ([id number]) Height 170.18 cm (no code) cm 03-18-2018 [facility] 17:10-[address] ([address]606) Height 170.18 cm (no code) cm 01-07-2018 [facility] 11:00-[address] [place] [address] ([id number]) Height 170.18 cm (no code) cm 07-28-2017 [facility] 10:20-[address] [place] [address] ([id number]) Height 170.18 cm (no code) cm 07-10-2017 [facility] 14:20-[address] [place] [address] ([id number]) Height 170.18 cm (no code) cm 01-03-2017 [facility] 16:40-[address] [place] [address] ([id number]) Weight 100.7 kg (no code) kg 03-18-2018 [facility] 17:10-[address] [place] [address] ([id number]) Weight 97.8 kg (no code) kg 01-07-2018 [facility] 11:00-0400 27108 [facility] ([id number]) Weight 99.25 kg (no code) kg 07-28-2017 [facility] [place] 10:200400 04202 [facility] ([id number]) Weight 98.88 kg (no code) kg 07-10-2017 [facility] 14:20-0400 83340 [facility] ([id number]) Weight 98.02 kg (no code) kg 01-03-2017 [facility] 16:40-0400 62994 [facility] ([id number]) Interventions No Information Plan of Treatment The data below is from unstructured sources Discharge Date 12/02/14 10:30am Instructions/Education Provided DR. FONSECA DISCHARGE INST O/P Rectocele (DC) Cystocele (DC) Anterior Vaginal Repair (DC) Bladder Sling Procedures (DC) Prescriptions See Medication Section Discharge Date 03/19/17 12:42pm Prescriptions See Medication Section Activity Details Follow Up 3 Months Reason:HTN Activity Details Follow Up 4 Weeks Reason:COPD/groin pain Activity Details Follow Up prn Reason: Activity Details Follow Up 6 Weeks Reason:Lab results /pain Activity Details Follow Up as needed or reg fu with p cp Reason: Goals No Information Social History No Information Functional Status The data below is from unstructured sources Query Response Date Usama rded Patient Orientation Person Place Time Situation Normal For Age December 02, 2014 10:48am Mental Status No Information Encounters Encounter Normalized Encounter Encounter Diagnosis Care Provi sharee Organization Date Type 05-26-2019 [facility] Chronic obstructive CRYSTAL PATRICK RIMAN (no [facility] - CARE pulmonary disease with phone) CAR E (no phone) 05-26-2019 (acute) exacerbation - 05-26-2019 08-03-2019 [facility] 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) (no phone) 07-02-2019 [facility] Chronic obstructive [facility] (no [facility] - pulmonary disease, phone) (no phone) 07-02-2019 unspecified - 07-02-2019 07-01-2019 [facility] Spinal stenosis, RAFAEL HARTMA N (no [facility] - lumbar region without phone) (no phon e) 07-01-2019 neurogenic - claudication 07-01-2019 06-24-2019 [facility] Spinal stenosis, RAFAEL ELLIS N (no [facility] - lumbar region without phone) (no phon e) 06-24-2019 neurogenic - claudication 06-24-2019 06-17-2019 [facility] Spinal stenosis, RAFAEL Briggs (no [facility] - lumbar region without phone) (no phon e) 06-17-2019 neurogenic - claudication 06-17-2019 06-02-2019 [facility] Lumbago with sciatica, BETHAN Y ASHLEY (no [facility] - right side phone) (no phone) 06-02-2019 - 06-02-2019 10-03-2016 Emergency department no information no name (no ameya ne) no organization name - patient visit (no phone) 10-03-2016 10-03-2016 Emergency department no information no name (no ameya ne) no organization name - patient visit (no phone) 10-03-2016 01-08-2018 Patient encounter no information no name (no phone) no organization name (no phone) NEGATED Patient encounter no information no name (no phone) no organization name 07-28-2017 (no phone) 07-16-2017 Patient encounter no information no name (no phone) no organization name (no phone) 07-14-2017 Patient encounter no information no name (no phone) no organization name (no phone) 07-10-2017 Patient encounter no information no name (no phone) no organization name (no phone) 03-26-2017 Patient encounter no information no name (no phone) no organization name - (no phone) 03-26-2017 2017 Patient encounter no information no name (no phone) no organization name (no phone) 12-29-2016 Patient encounter no information no name (no phone) no organization name - (no phone) 12-29-2016 12-24-2016 Patient encounter no information no name (no phone) no organization name (no phone) 09-14-2015 Patient encounter no information no name (no phone) no organization name (no phone) 12-01-2014 Patient encounter no information no name (no phone) no organization name - (no phone) 12-02-2014 09-01-2013 Patient encounter no information no name (no phone) no organization name (no phone) 07-02-2019 Patient encounter no information [facility] (no phone) 07-01-2019 Patient encounter no information [facility] Briggs [facility]LEY [facility] phone) [facility] (no phone) 06-24-2019 Patient encounter no information [facility] Briggs ASHLEY [facility]) [facility] (no phone) 06-17-2019 Patient encounter no information [facility] RAMIREZ [facility] phone) [facility] (no phone) 06-14-2019 Patient encounter no information [facility] RAMIREZ MD (no [facility] procedure phone) [facility] (no phone) 06-02-2019 Patient encounter no information [facility] RAMIREZ MD (no [facility] procedure phone) [facility] (no phone) 06-02-2019 Patient encounter no information (no phone) [facility] (no phone) 05-10-2019 Patient encounter no information CESAR RYAN DO ( no [facility] - procedure phone) (no phone) [facility] 05-10-2019 (no phone) 05-06-2019 Patient encounter no information no name (no phone) no organization name - procedure (no phone) 05-06-2019 05-05-2019 Patient encounter no information [facility] RAMIREZ MD (no [facility] procedure phone) (no phone) [facility] (no phone) 04-22-2019 Patient encounter no information no name (no phone) no organization name procedure (no phone) 04-15-2019 Patient encounter no information no name (no phone) no organization name procedure (no phone) 04-01-2019 Patient encounter no information no name (no phone) no organization name procedure (no phone) 01-11-2019 Patient encounter no information no name (no phone) no organization name procedure (no phone) 12-23-2018 Patient encounter no information no name (no phone) no organization name procedure (no phone) 08-04-2018 Patient encounter no information no name (no phone) no organization name procedure (no phone) 08-04-2018 Patient encounter no information no name (no phone) no organization name procedure (no phone) 07-28-2018 Patient encounter no information no name (no phone) no organization name procedure (no phone) 03-18-2018 Patient encounter no information no name (no phone) no organization name procedure (no phone) 07-16-2017 Patient encounter no information no name (no phone) no organization name procedure (no phone) 03-26-2017 Patient encounter no information no name (no phone) no organization name - procedure (no phone) 03-26-2017 03-19-2017 Patient encounter no information no name (no phone) no organization name - procedure (no phone) 03-19-2017 2017 Patient encounter no information no name (no phone) no organization name procedure (no phone) 12-29-2016 Patient encounter no information no name (no phone) no organization name - procedure (no phone) 12-29-2016 12-24-2016 Patient encounter no information no name (no phone) no organization name procedure (no phone) 12-12-2016 Patient encounter no information no name (no phone) no organization name procedure (no phone) 10-03-2016 Patient encounter no information no name (no phone) no organization name procedure (no phone) 09-14-2015 Patient encounter no information no name (no phone) no organization name procedure (no phone) 12-01-2014 Patient encounter no information no name (no phone) no organization name - procedure (no phone) 12-02-2014 11-23-2014 Patient encounter no information no name (no phone) no organization name procedure (no phone) 08-02-2019 Telephone encounter no information L[facility]ONT ASHLEY (n o [facility] phone) (no phone) 06-29-2019 Telephone encounter no information L[facility] ASHLEY (n o [facility] - phone) (no phone) 06-29-2019 - 06-29-2019 06-07-2019 Telephone encounter no information [facility] ASHLEY (n o [facility] - phone) (no phone) 06-07-2019 - 06-07-2019 no information Encounter for other no name (no phone) no org anization name preprocedural (no phone) examination no information Pre-procedural no name (no phone) no organiza tion name laboratory examination (no phone) Medical Equipment No Information Payers No Information History general Narrative - Reported Note Type Note Facility History general Narrative - Reported Type Medical hyperlipidemia History Medical anxiety History Medical Allergies History Medical Calculus of gallbladder wit hout cholecystitis without obstruction History Medical Calculus of gallbladder wit hout cholecystitis without obstruction History Surgical heart cath [facility]- normal per record review 05/2009 History Surgical breast biopsy/benign mass removed 10/20 011 History Surgical section x 1 History Surgical bladder surgery 11/2014 History Surgical Gallbladder Removal 03/2017 History Hospitaliz Surgery ation History [facility] ([id number]) Summary Purpose eClinicalWorks SubmissioneClinicalWorks SubmissioneClinicalWorks Submission Advance Directives Directive Response Recor ded Date/Time Advance Directives No 6:56am Health Care Power of Pararescue Craftsman No 12/01/14 6:56am Resuscitation Status Full Code 12/01/14 6:56am Directive Response Recor ded Date/Time Advance Directives No 12:31pm Health Care Power of Pararescue Craftsman No 03/19/17 12:31pm Resuscitation Status Full Code 03/19/17 12:31pm Discharge Instructions Patient Instructions Physician Instructions New, Converted or Re-Newed RX: Call to Patients Pharmacy Instructions start vaginal estrogen after following up with Fenech Additional Follow Up: Yes (1-2 weeks with Fenech and 6-8 weeks. with Fenech) Activity: Activity as Tolerated (no lifting over 15 lbs. ) Nothing Inside Vagina: No Douching, No [place], No Tampons Discharge Diet: No Restrictions Symptoms to Report to : Bleeding Excessive, Pain Increased, Fever Over 101 Degrees F, Heart Beat Irreg/Pounding, Vaginal Bleeding Increase, Pain/Pressure in Shoulder, Vaginal Discharge Foul For Any Problems or Questions: Contact Your Physician Bathing Instructions: Shower No hospital discharge instruction information available. Additional Source Comments This clinical document has been generated using [employer] software that has been certified by the Office of the National Coordinator for Health Information Technology (ONC 15.99.04.3023.Diam.31.00.0.052047) and the National Committee for Track[employer] Operator (NCQA, as an eMeasure certified technology). FOR RECORDS PERTAINING TO PATIENTS WHO ARE OR HAVE BEEN ENROLLED IN A CHEMICAL D EPENDENCY/SUBSTANCE ABUSE PROGRAM, SOME INFORMATION MAY BE OMITTED. This clinica l summary was aggregated from multiple sources. Caution should be exercised in using it in the provision of clinical care. This summary normalizes information from multiple sources, and as a consequence, information in this document may ma terially change the coding, format and clinical context of patient data. In luc tion, data may be omitted in some cases. CLINICAL DECISIONS SHOULD BE BASED ON T HE PRIMARY CLINICAL RECORDS. [employer] provides no warranty or guara ntee of the accuracy or completeness of information in this document.The followi information is based on time limited clinical information UNRECOGNIZED CONTENT PROVIDED BELOW FOR UNRECOGNIZED SECTION MEDICAL (GENERAL) HISTORY Type Description Date Medical History hyperlipidemia Medical History anxiety Medical History Allergies Medical History Calculus of gallblad sharee without cholecystitis without obstruction Surgical History heart cath [facility]- normal per record review 05/2009 Surgical History breast biopsy/benig n mass removed 10/2010 Surgical History section x 1 Surgical History bladder surgery 11/2014 Surgical History Gallbladder Removal 03/2017 Hospitalization History Surgery UNRECOGNIZED CONTENT PROVIDED BELOW FOR UNRECOGNIZED SECTION REASON FOR VISIT Hypertension-mpolshakMA, Pt has a bump on her left wrist that she would like loo ked at, Pt states she had a tick bite two years ago that is still causing her pa in and would like tested for Lymes DiseaseRequests return callCough and chest co ngestion started 1 week ago [id number]
--- OUTSIDE RECORDS SUMMARY | 2019-08-08 15:47 | XMS REPORT ---
Author Author Lidia, Loren Doctor Organization [facility] Address Unknown Phone Unavailable Care Team Providers Care Rx Specialist Name Role Phone Migration, Doctor Unavailable Unavailable PROBLEMS Type Condition ICD9-CM Code KOS75-QV Code Onset Dates Condition S tatus SNOMED Code Problem Essential hypertension I10 Active 56311966 Problem Chronic obstructive pulmonary disease, unspecified COPD ty pe J44.9 Active 37243277 Problem Allergic rhinitis J30.9 Active 61 886411 Problem Hyperlipidemia E78.5 Active 18521 004 Problem GERD (gastroesophageal reflux disease) K21.9 Active 141032577 Problem Depression F32.9 Active 74940450 Problem 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 Active 973122560 Problem Anxiety F41.9 Active 90250853 Problem Fibromyalgia M79.7 Active 0795218 05 Problem Lumbago with sciatica, left side M54.42 Active 627189520 Problem Lumbago with sciatica, right side M54.41 Active 117197472 Problem BMI 40.0-44.9, adult Z68.41 Active 128278765 Problem 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 Active 33174566 Problem COPD exacerbation J44.1 Active 19 3850064 Problem Tobacco use Z72.0 Active 42332706 8 Problem Other chronic pain G89.29 Active 8 0654495 Problem BMI 37.0-37.9, adult Z68.37 Active 981393352 Problem Non-alcoholic fatty liver disease K76.0 Active 120422689 Problem Elevated hemoglobin D58.2 Active 546392817 ALLERGIES No Information ENCOUNTERS Encounter Location Date Diagnosis [facility] [id number] [place] [address] May, Lumbago with sciatica, right side M54.41 ; Lumbago with sciatica, left side M54.42 ; BMI 40.0-44.9, adult Z68.41 ; Peripheral edema R60.9 ; Decreased GFR R94.4 and Elevated hemoglobin D58.2 [facility] [address] [place] [id number] [address] [place] [address] 05 May, 2019 COPD exacerbation J44.1 and Bronchitis J40 [address] [address] Apr, Decreased GFR R94.[address] [address] 15 Apr, 2019 Well woman exam with routine gynecologic al exam Z01.419 ; Screening mammogram, encounter for Z12.31 ; Decreased GFR R94.4 ; Elevated hemoglobin D58.2 and BMI 40.0-44.9, adult Z68.[address] [address] 08 Apr, 2019 Decreased GFR R94.[address] [address] 02 Apr, 2019 Swelling R60.9 ; Bloating R14.0 ; Screen ing for colon cancer Z12.11 ; Hyperlipidemia E78.5 ; Depression F32.9 ; Essential hypertension I10 and Non- alcoholic fatty liver disease K76.0 [facility] [place] [address] [address] Mar, Generalized edema R60.[address] [address] Mar, [facility] [address] [address] Mar, Chronic obstructive pulmonar y disease, unspecified COPD type J44.9 and Pedal edema R60.[address] [address] Feb, [address] [address] Dec, Hyperlipidemia E78.5 ; Essential hyperte nsion I10 ; Epigastric pain R10.13 ; Colon cancer screening Z12.11 ; Tobacco use Z72.0 ; BMI 37.0-37.9, adult Z68.37 ; Non-alcoholic fatty liver disease K76.0 and Diastasis recti M62.08 [place] [address] [address] Dec, Hyperlipidemia E78.5 [place] [address] [address] Dec, Hyperlipidemia E78.5 [place] [address] [address] Dec, Essential hypertension I10 and Hyperlipi demia E78.5 [place] [address] [address] Jul, Lumbago with sciatica, right side M54.41 and Lumbago with sciatica, left side M54.[address] [address] Jul, Essential hypertension I10 ; Chronic obs tructive pulmonary disease, unspecified COPD type J44.9 ; Lumbago with sciatica, right side M54.41 ; Lumbago with sciatica, left side M54.42 ; Other chronic pain G89.29 ; Tobacco abuse counseling Z71.6 ; 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 and Hyperlipidemia E78.5 [place] [address] [address] May, Hyperlipidemia E78.5 [facility] [address] [facility] [id number] [place] [address] Feb, Acute bronchitis, unspecifie d organism J20.9 and Cough R05 [address] [address] Feb, [address] [address] Dec, Muscle ache M79.1 ; Hyperlipidemia E78.5 and Tick bite, sequela W57.XXXS [address] [address] Dec, Essential hypertension I10 ; Ganglion cy st M67.40 ; Hyperlipidemia E78.5 ; Fibromyalgia M79.7 ; Muscle ache M79.1 and Tick bite, sequela W57.XXXS [place] [address] [address] Oct, [place] [address] [address] Jul, [place] [address] [address] Jul, Right groin pain R10.31 and Hoarseness R 49.0 [place] [address] [address] Jun, [address] [address] Jun, Chronic obstructive pulmonary disease, u nspecified COPD type J44.9 and Bronchitis J40 [address] [address] Jun, Right groin pain R10.31 [place] [address] [address] Jun, Right groin pain R10.[address] [address] Jun, Right groin pain R10.31 ; Chronic obstru ctive pulmonary disease, unspecified COPD type J44.9 ; 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 ; Anxiety F41.9 ; Depression F32.9 and 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 [place] [address] [address] Feb, [address] [address] Jan, Hyperlipidemia 272.4 ; 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 and Hyperlipidemia E78.[address] [address] Jan, [place] [address] [address] Dec, 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 ; Essential hypertension I10 ; Hyperlipidemia E78.5 ; Calculus of gallbladder without cholecystitis without obstruction K80.20 ; Tobacco use Z72.0 and BMI 33.0-33.9,adult Z68.33 [place] [address] [address] Nov, Essential hypertension I10 [place] [address] [address] Nov, At high risk for kidney injury Z91.[address] [address] Nov, Right adrenal mass E27.9 and Calculus of gallbladder without cholecystitis without obstruction K80.20 [facility] [address] [address] Sep, Musculoskeletal pain of righ t lower extremity M79.[address] [address] Oct, Chronic obstructive pulmonary disease, u nspecified COPD type J44.9 [place] [address] [address] Oct, Tobacco abuse Z72.0 [place] [address] [address] Sep, [facility] [address] [place] [id number] [place] [address] August, Bronchitis J40 [address] [address] 14 Apr, 2015 Depression F32.9 ; Essential hypertensio n I10 ; Hyperlipidemia E78.5 ; Abdominal bloating R14.0 ; Irregular menstruation N92.6 ; Hoarseness or changing voice R49.9 ; Wheezing R06.2 and Tobacco abuse Z72.0 [facility] [address] [place] [id number] [place] [address] Nov, Major depressive disorder, recurrent epi sode, moderate 296.32 [facility] [address] [address] Nov, Hypertension 401.9 and Tobacco abuse 305 .1 [facility] [address] [address] Nov, [facility] [address] [address] Nov, [facility] [address] [address] Nov, Major depressive disorder, recurrent epi sode, moderate 296.32 [facility] [address] [address] Oct, [facility] [address] [address] Oct, Major depressive disorder, recurrent epi sode, moderate 296.32 [facility] [address] [address] Oct, [facility] [address] [address] Sep, Hyperlipidemia 272.4 ; Depression 311 an d Urinary incontinence 788.30 [facility] [address] [address] Jul, [facility] [address] [address] Jul, [facility] [address] [address] Jan, [facility] [address] [address] Jan, [facility] [address] [address] Jan, [facility] [address] [address] 06 Jan, 2014 [facility] [address] [facility] [id number] [facility] [address] 18 Dec, 2013 [facility] [address] [facility] [id number] [place] [address] 18 Dec, 2013 [facility] [address] [facility] [id number] [facility] [address] 17 Dec, 2013 [facility] [address] [facility] [id number] [place] [address] 17 Dec, 2013 [facility] [address] [facility] [id number] [place] [address] 16 Dec, 2013 [facility] [id number] [place] [address] 16 Dec, 2013 [facility] [id number] [place] [address] 14 Oct, 2013 [facility] [id number] [place] [address] 14 Oct, 2013 [facility] [id number] [place] [address] August, [facility] [id number] [place] [address] August, [facility] [address] [id number] [place] [address] August, [facility] [address] [id number] [place] [address] August, [facility] [address] [id number] [place] [address] Jul, [facility] [address] [id number] [place] [address] Jul, [facility] [address] [id number] [place] [address] Jun, [facility] [address] [id number] [place] [address] Jun, [facility] [address] [id number] [place] [address] Mar, [facility] [address] [facility] [id number] [place] [address] Mar, [facility] [address] [facility] [id number] [place] [address] Jan, [facility] [address] [facility] [id number] [place] [address] Oct, [facility] [address] [facility] [id number] [place] [address] August, [facility] [address] [id number] [place] [address] Jun, [facility] [address] [id number] [place] [address] Apr, [facility] [id number] [place] [address] Mar, [facility] [address] [id number] [place] [address] Mar, [facility] [address] [id number] [place] [address] Mar, [facility] [address] [facility] [id number] [place] [address] Mar, [facility] [id number] [place] [address] Nov, [facility] [address] [facility] [id number] [place] [address] Nov, [facility] [id number] [place] [address] Mar, [facility] [address] [id number] [place] [address] Mar, [facility] [address] [facility] [id number] [place] [address] Oct, [facility] [address] [id number] [place] [address] Oct, [facility] [id number] [place] [address] Sep, [facility] [address] [id number] [place] [address] Apr, [facility] [address] [facility] [id number] [place] [address] Feb, [facility] [id number] [place] [address] Jan, [facility] [id number] [place] [address] Jan, IMMUNIZATIONS No Known Immunizations SOCIAL HISTORY Never Assessed REASON FOR VISIT PLAN OF CARE VITAL SIGNS Height 67 in 2013-07-19 Weight 222.8 lbs 2013-07-19 Temperature 97.7 degrees Fahrenheit 2013-07-19 Heart Rate 84 bpm 2013-07-19 Respiratory Rate 20 2013-07-19 Blood pressure systolic 146 mmHg 2013-07-19 Blood pressure diastolic 94 mmHg 2013-07-19 MEDICATIONS No Known Medications RESULTS No Results PROCEDURES No Known procedures INSTRUCTIONS MEDICATIONS ADMINISTERED No Known Medications MEDICAL (GENERAL) HISTORY Type Description Date Medical History hyperlipidemia Medical History anxiety Medical History Allergies Medical History Calculus of gallbladder with out cholecystitis without obstruction Medical History Calculus of gallbladder with out cholecystitis without obstruction Surgical History heart cath .Orestes's- normal per record review 05/2009 Surgical History breast biopsy/benign mass removed 1 Surgical History section x 1 Surgical History bladder surgery 11/2014 Surgical History Gallbladder Removal 03/2017 Hospitalization History Surgery
--- OUTSIDE RECORDS SUMMARY | 2019-08-08 15:48 | XMS REPORT ---
Author Author Lidia, Loren Doctor Organization [facility] Address Unknown Phone Unavailable Care Team Providers Care Death Clearance Coordinator Name Role Phone Migration, Doctor Unavailable Unavailable PROBLEMS Type Condition ICD9-CM Code OUL83-JR Code Onset Dates Condition S tatus SNOMED Code Problem Chronic obstructive pulmonary disease, unspecified COPD ty pe J44.9 Active 76140535 Problem Hyperlipidemia E78.5 Active 39788 004 Problem Essential hypertension I10 Active 46338896 Problem GERD (gastroesophageal reflux disease) K21.9 Active 407035566 Problem Anxiety F41.9 Active 00650893 Problem Tobacco use Z72.0 Active 47144056 8 Problem Lumbago with sciatica, right side M54.41 Active 683738391 Problem Depression F32.9 Active 51449698 Problem Other chronic pain G89.29 Active 8 9914613 Problem Allergic rhinitis J30.9 Active 61 676862 Problem 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 Active 636277649 Problem 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 Active 09863773 Problem Fibromyalgia M79.7 Active 6388506 05 Problem Lumbago with sciatica, left side M54.42 Active 826380722 ALLERGIES No Information ENCOUNTERS Encounter Location Date Diagnosis [facility] [address] [id number] [address] [place] [address] Dec, [facility] [address] [id number] [address] [place] [address] Dec, Hyperlipidemia E78.5 [facility] [address] [id number] [address] [place] [address] Dec, Hyperlipidemia E78.5 [facility] [address] [id number] [address] [place] [address] Dec, Essential hypertension I10 a nd Hyperlipidemia E78.5 [facility] [address] [id number] [address] [place] [address] Jul, Lumbago with sciatica, right side M54.41 and Lumbago with sciatica, left side M54.42 [facility] [address] [address] Jul, Essential hypertension I10 ; Chronic obstructive pulmonary disease, unspecified COPD type J44.9 ; Lumbago with sciatica, right side M54.41 ; Lumbago with sciatica, left side M54.42 ; Other chronic pain G89.29 ; Tobacco abuse counseling Z71.6 ; 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 and Hyperlipidemia E78.5 [facility] [address] [address] May, Hyperlipidemia E78.5 [facility] [address] [address] Feb, Acute bronchitis, unspecifie d organism J20.9 and Cough R05 [place] [address] [address] Feb, [facility] [address] [address] Dec, Muscle ache M79.1 ; Hyperlip idemia E78.5 and Tick bite, sequela W57.XXXS [place] [address] [address] Dec, Essential hypertension I10 ; Ganglion cyst M67.40 ; Hyperlipidemia E78.5 ; Fibromyalgia M79.7 ; Muscle ache M79.1 and Tick bite, sequela W57.XXXS [facility] [address] [address] Oct, [place] [address] [address] Jul, [place] [address] [address] Jul, Right groin pain R10.31 and Hoarseness R49.0 [place] [address] [address] Jun, [place] [address] [address] Jun, Chronic obstructive pulmonar y disease, unspecified COPD type J44.9 and Bronchitis J40 [address] [address] Jun, Right groin pain R10.31 [place] [address] [address] Jun, Right groin pain R10.31 [place] [address] [address] Jun, Right groin pain R10.31 ; Ch ronic obstructive pulmonary disease, unspecified COPD type J44.9 ; 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 ; Anxiety F41.9 ; Depression F32.9 and 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 [place] [address] [address] Feb, [address] [address] Jan, Hyperlipidemia 272.4 ; Adeno ma of right adrenal gland D35.01 and Hyperlipidemia E78.[address] [address] Jan, [place] [address] [address] 15 Dec, 2016 Adenoma of right adrenal gla nd D35.01 ; Essential hypertension I10 ; Hyperlipidemia E78.5 ; Calculus of gallbladder without cholecystitis without obstruction K80.20 ; Tobacco use Z72.0 and BMI 33.0-33.9,adult Z68.[address] [address] Nov, Essential hypertension I10 [place] [address] [address] Nov, At high risk for kidney inju ry Z91.89 [place] [address] [address] Nov, Right adrenal mass E27.9 and Calculus of gallbladder without cholecystitis without obstruction K80.20 [facility] [address] [address] Sep, Musculoskeletal pain of righ t lower extremity M79.604 [place] [address] [address] Oct, Chronic obstructive pulmonar y disease, unspecified COPD type J44.9 [place] [address] [address] Oct, Tobacco abuse Z72.0 [place] [address] [address] Sep, [facility] [address] [address] August, Bronchitis J40 [place] [address] [address] Apr, Depression F32.9 ; Essential hypertension I10 ; Hyperlipidemia E78.5 ; Abdominal bloating R14.0 ; Irregular menstruation N92.6 ; Hoarseness or changing voice R49.9 ; Wheezing R06.2 and Tobacco abuse Z72.0 [place] [address] [address] Nov, Major depressive disorder, r ecurrent episode, moderate 296.32 [place] [address] [address] Nov, Hypertension 401.9 and Tobac co abuse 305.1 [place] [address] [address] Nov, [facility] [address] [id number] [address] [place] [address] Nov, [facility] [address] [id number] [address] [place] [address] Nov, Major depressive disorder, r ecurrent episode, moderate 296.32 [facility] [address] [id number] [address] [place] [address] Oct, [facility] [address] [id number] [address] [place] [address] Oct, Major depressive disorder, r ecurrent episode, moderate 296.32 [facility] [address] [id number] [address] [place] [address] Oct, [facility] [address] [id number] [address] [place] [address] Sep, Hyperlipidemia 272.4 ; Depre ssion 311 and Urinary incontinence 788.30 [facility] [address] [id number] [address] [place] [address] Jul, [facility] [address] [id number] [address] [place] [address] Jul, [facility] [address] [id number] [address] [place] [address] Jan, [facility] [address] [id number] [address] [place] [address] Jan, [facility] [address] [id number] [address] [place] [address] Jan, [facility] [address] [id number] [address] [place] [address] Jan, [facility] [address] [id number] [address] [place] [address] Dec, [facility] [address] [id number] [address] [place] [address] Dec, [facility] [address] [id number] [address] [place] [address], [place] [address] 17 Dec, 2013 [facility] [address] [id number] [address] [place] [address], [place] [address] 17 Dec, 2013 [facility] [address] [id number] [address] [place] [address], [place] [address] 16 Dec, 2013 [facility] [address] [id number] [address] [place] [address], [place] [address] 16 Dec, 2013 [facility] [address] [id number] [address] [place] [address], [place] [address] 14 Oct, 2013 [facility] [address] [id number] [address] [place] [address], [place] [address] 14 Oct, 2013 [facility] [address] [id number] [address] [place] [address], [place] [address] 20 Aug, 2013 [facility] [address] [id number] [address] [place] [address], [place] [address] August, [facility] [address] [id number] [address] [place] [address], [place] [address] August, [facility] [address] [id number] [address] [place] [address], [place] [address] August, [facility] [address] [id number] [address] [place] [address], [place] [address] 18 Jul, 2013 [facility] [address] [id number] [address] [place] [address], [place] [address] Jul, [facility] [address] [id number] [address] [place] [address], [place] [address] Jun, [facility] [address] [id number] [address] [place] [address], [place] [address] Jun, [facility] [address] [id number] [address] [place] [address], [place] [address] Mar, [facility] [address] [id number] [address] [place] [address], [place] [address] Mar, [facility] [address] [id number] [address] [place] [address], [place] [address] Jan, [facility] [address] [id number] [address] [place] [address], [place] [address] Oct, [facility] [address] [id number] [address] [place] [address], [place] [address] August, [facility] [address] [id number] [address] [place] [address], [place] [address] Jun, [facility] [address] [id number] [address] [place] [address], [place] [address] Apr, [facility] [address] [id number] [address] [place] [address], [place] [address] Mar, [facility] [address] [id number] [address] [place] [address], [place] [address] Mar, [facility] [address] [id number] [address] [place] [address], [place] [address] Mar, [facility] [address] [id number] [address] [place] [address], [place] [address] Mar, [facility] [address] [id number] [address] [place] [address], [place] [address] Nov, [facility] [address] [id number] [address] [place] [address], [place] [address] Nov, [facility] [address] [id number] [address] [place] [address], [place] [address] Mar, [facility] [address] [id number] [address] [place] [address], [place] [address] Mar, [facility] [address] [id number] [address] [place] [address], [place] [address] Oct, [facility] [address] [id number] [address] [place] [address], [place] [address] Oct, [facility] [address] [id number] [address] [place] [address] 17 Sep, 2010 [facility] [address] [id number] [address] [place] [address] Apr, [facility] [address] [id number] [address] [place] [address] Feb, [facility] [address] [id number] [address] [place] [address] Jan, [facility] [address] [id number] [address] [place] [address] Jan, IMMUNIZATIONS No Known Immunizations SOCIAL HISTORY Never Assessed REASON FOR VISIT PLAN OF CARE VITAL SIGNS MEDICATIONS Unknown Medications RESULTS No Results PROCEDURES No Known [...]
--- OUTSIDE RECORDS SUMMARY | 2019-08-08 15:48 | XMS REPORT ---
Author Author Lidia, Loren Doctor Organization [facility] Address Unknown Phone Unavailable Care Team Providers Care K9 Handler Name Role Phone Migration, Doctor Unavailable Unavailable PROBLEMS Type Condition ICD9-CM Code SRK26-YS Code Onset Dates Condition S tatus SNOMED Code Problem Chronic obstructive pulmonary disease, unspecified COPD ty pe J44.9 Active 31456943 Problem Hyperlipidemia E78.5 Active 46355 004 Problem Essential hypertension I10 Active 30811329 Problem GERD (gastroesophageal reflux disease) K21.9 Active 350101813 Problem Anxiety F41.9 Active 76157882 Problem Tobacco use Z72.0 Active 63439271 8 Problem Lumbago with sciatica, right side M54.41 Active 983630218 Problem Depression F32.9 Active 41769316 Problem Other chronic pain G89.29 Active 8 0497378 Problem Allergic rhinitis J30.9 Active 61 908614 Problem 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 Active 714788182 Problem 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 Active 57415704 Problem Fibromyalgia M79.7 Active 2685699 05 Problem Lumbago with sciatica, left side M54.42 Active 284552257 ALLERGIES No Information ENCOUNTERS Encounter Location Date Diagnosis [place] [address] [place] [address] Jul, Lumbago with sciatica, right side M54.41 and Lumbago with sciatica, left side M54.42 [place] [address] [place] [id number] [place] [address] Jul, Essential hypertension I10 ; Chronic obstructive pulmonary disease, unspecified COPD type J44.9 ; Lumbago with sciatica, right side M54.41 ; Lumbago with sciatica, left side M54.42 ; Other chronic pain G89.29 ; Tobacco abuse counseling Z71.6 ; 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 and Hyperlipidemia E78.5 [place] [address] [address] May, Hyperlipidemia E78.5 [facility] [address] [address] Feb, Acute bronchitis, unspecifie d organism J20.9 and Cough R05 [facility] [place] [address] [address] Feb, [facility] [place] [address] [address] Dec, Muscle ache M79.1 ; Hyperlip idemia E78.5 and Tick bite, sequela W57.XXXS [place] [address] [address] Dec, Essential hypertension I10 ; Ganglion cyst M67.40 ; Hyperlipidemia E78.5 ; Fibromyalgia M79.7 ; Muscle ache M79.1 and Tick bite, sequela W57.XXXS [facility] [place] [address] [address] Oct, [place] [address] [address] Jul, [place] [address] [address] Jul, Right groin pain R10.31 and Hoarseness R49.0 [place] [address] [address] Jun, [place] [address] [address] Jun, Chronic obstructive pulmonar y disease, unspecified COPD type J44.9 and Bronchitis J40 [facility] [place] [address] [address] Jun, Right groin pain R10.31 [place] [address] [address] Jun, Right groin pain R10.[address] [address] Jun, Right groin pain R10.31 ; Ch ronic obstructive pulmonary disease, unspecified COPD type J44.9 ; 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 ; Anxiety F41.9 ; Depression F32.9 and 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 [address] Feb, [address] [address] Jan, Hyperlipidemia 272.4 ; Adeno ma of right adrenal gland D35.01 and Hyperlipidemia E78.[address] [address] Jan, [address] [address] Dec, Adenoma of right adrenal gla nd D35.01 ; Essential hypertension I10 ; Hyperlipidemia E78.5 ; Calculus of gallbladder without cholecystitis without obstruction K80.20 ; Tobacco use Z72.0 and BMI 33.0-33.9,adult Z68.[address] [address] Nov, Essential hypertension I10 [address] [address] Nov, At high risk for kidney inju ry Z91.[address] [address] Nov, Right adrenal mass E27.9 and Calculus of gallbladder without cholecystitis without obstruction K80.20 [facility] [address] [place] [id number] [address] [place] [address] Sep, Musculoskeletal pain of righ t lower extremity M79.604 [place] [id number] [address] [place] [address] Oct, Chronic obstructive pulmonar y disease, unspecified COPD type J44.9 [facility] [place] [address] [place] [id number] [address] [place] [address] Oct, Tobacco abuse Z72.0 [facility] [place] [address] [place] [id number] [address] [place] [address] Sep, [facility] [address] [address] August, Bronchitis J40 [place] [address] [address] Apr, Depression F32.9 ; Essential hypertension I10 ; Hyperlipidemia E78.5 ; Abdominal bloating R14.0 ; Irregular menstruation N92.6 ; Hoarseness or changing voice R49.9 ; Wheezing R06.2 and Tobacco abuse Z72.0 [place] [address] [address] Nov, Major depressive disorder, r ecurrent episode, moderate 296.32 [place] [address] [address] Nov, Hypertension 401.9 and Tobac co abuse 305.1 [place] [address] [address] Nov, [place] [address] [place] [id number] [place] [address] Nov, [facility] [place] [address] [place] [id number] [address] [place] [address] Nov, Major depressive disorder, r ecurrent episode, moderate 296.32 [place] [address] [place] [id number] [place] [address] Oct, [facility] [place] [address] [place] [id number] [address] [place] [address] Oct, Major depressive disorder, r ecurrent episode, moderate 296.32 [facility] [place] [address] [id number] [address] [place] [address] 02 Oct, 2014 [facility] [place] [address] [id number] [address] [place] [address] 04 Sep, 2014 Hyperlipidemia 272.4 ; Depre ssion 311 and Urinary incontinence 788.30 [facility] [place] [address] [id number] [address] [place] [address] 14 Jul, 2014 [facility] [place] [address] [id number] [address] [place] [address] Jul, [facility] [place] [address] [id number] [address] [place] [address] Jan, [facility] [place] [address] [id number] [address] [place] [address] Jan, [facility] [place] [address] [id number] [address] [place] [address] Jan, [facility] [place] [address] [id number] [address] [place] [address] 06 Jan, 2014 [facility] [place] [address] [id number] [address] [place] [address] 18 Dec, 2013 [facility] [place] [address] [id number] [address] [place] [address] 18 Dec, 2013 [facility] [place] [address] [id number] [address] [place] [address] 17 Dec, 2013 [facility] [place] [address] [id number] [address] [place] [address] 17 Dec, 2013 [facility] [place] [address] [id number] [address] [place] [address] 16 Dec, 2013 [facility] [place] [address] [id number] [address] [place] [address] 16 Dec, 2013 [facility] [place] [address] [id number] [address] [place] [address] Oct, [facility] [address] [id number] [address] [place] [address], [place] [address] 14 Oct, 2013 [facility] [address] [id number] [address] [place] [address], [place] [address] August, [facility] [address] [id number] [address] [place] [address], [place] [address] August, [facility] [address] [id number] [address] [place] [address], [place] [address] August, [facility] [address] [id number] [address] [place] [address], [place] [address] August, [facility] [address] [id number] [address] [place] [address], [place] [address] Jul, [facility] [address] [id number] [address] [place] [address], [place] [address] Jul, [facility] [address] [id number] [address] [place] [address], [place] [address] Jun, [facility] [address] [id number] [address] [place] [address], [place] [address] Jun, [facility] [address] [id number] [address] [place] [address], [place] [address] Mar, [facility] [address] [id number] [address] [place] [address], [place] [address] Mar, [facility] [address] [id number] [address] [place] [address], [place] [address] Jan, [facility] [address] [id number] [address] [place] [address], [place] [address] Oct, [facility] [address] [id number] [address] [place] [address], [place] [address] August, [facility] [address] [id number] [address] [place] [address], [place] [address] Jun, [facility] [address] [id number] [address] [place] [address] Apr, [facility] [address] [id number] [address] [place] [address], [place] [address] Mar, [facility] [address] [id number] [address] [place] [address], [place] [address] Mar, [facility] [address] [id number] [address] [place] [address], [place] [address] Mar, [facility] [address] [id number] [address] [place] [address], [place] [address] Mar, [facility] [address] [id number] [address] [place] [address], [place] [address] Nov, [facility] [address] [id number] [address] [place] [address], [place] [address] Nov, [facility] [address] [id number] [address] [place] [address] Mar, [facility] [address] [id number] [address] [place] [address] Mar, [facility] [address] [id number] [address] [place] [address] Oct, [facility] [address] [id number] [address] [place] [address] Oct, [facility] [address] [id number] [address] [place] [address] Sep, [facility] [address] [id number] [address] [place] [address] Apr, [facility] [address] [id number] [address] [place] [address] Feb, [facility] [address] [id number] [address] [place] [address] Jan, [facility] [address] [id number] [address] [place] [address] Jan, IMMUNIZATIONS No Known Immunizations SOCIAL HISTORY [...] cholecystitis without obstruction Surgical History heart cath [facility]- normal per record review 05/2009 Surgical History breast biopsy/benign mass removed 1 Surgical History section x 1 Surgical History bladder surgery 11/2014 Surgical History Gallbladder Removal 03/2017 Hospitalization History Surgery
--- OUTSIDE RECORDS SUMMARY | 2019-08-08 15:48 | XMS REPORT ---
Author Author Lidia, Loren Doctor Organization [facility] Address Unknown Phone Unavailable Care Team Providers Care Clinical Business Analyst Name Role Phone Migration, Doctor Unavailable Unavailable PROBLEMS Type Condition ICD9-CM Code HNO73-GK Code Onset Dates Condition S tatus SNOMED Code Problem Chronic obstructive pulmonary disease, unspecified COPD ty pe J44.9 Active 89467004 Problem Hyperlipidemia E78.5 Active 12827 004 Problem Essential hypertension I10 Active 08698430 Problem Depression F32.9 Active 81150003 Problem Allergic rhinitis J30.9 Active 61 815271 Problem Tobacco use Z72.0 Active 87058771 8 Problem 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 Active 431855348 Problem 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 Active 24224266 Problem Non-alcoholic fatty liver disease K76.0 Active 112948642 Problem Anxiety F41.9 Active 06056252 Problem BMI 37.0-37.9, adult Z68.37 Active 836965135 Problem GERD (gastroesophageal reflux disease) K21.9 Active 360185466 Problem Fibromyalgia M79.7 Active 4895592 05 Problem Lumbago with sciatica, left side M54.42 Active 643916278 Problem Lumbago with sciatica, right side M54.41 Active 251846365 Problem Other chronic pain G89.29 Active 8 [id number] ALLERGIES No Information ENCOUNTERS Encounter Location Date Diagnosis [place] [address] [place] [id number] [place] [address] Apr, [place] [address] [place] [id number] [place] [address] 08 Apr, 2019 Decreased GFR R94.4 [place] [address] [place] [id number] [place] [address] Apr, Swelling R60.9 ; Bloating R14.0 ; Screen ing for colon cancer Z12.11 ; Hyperlipidemia E78.5 ; Depression F32.9 ; Essential hypertension I10 and Non- alcoholic fatty liver disease K76.0 [facility] [address] [facility] [id number] [address] [address] Mar, Generalized edema R60.1 [place] [address] [address] Mar, [facility] [address] [facility] [id number] [address] [address] Mar, Chronic obstructive pulmonar y disease, unspecified COPD type J44.9 and Pedal edema R60.0 [place] [address] [address] Feb, [place] [address] [address] Dec, Hyperlipidemia E78.5 ; Essential hyperte nsion I10 ; Epigastric pain R10.13 ; Colon cancer screening Z12.11 ; Tobacco use Z72.0 ; BMI 37.0-37.9, adult Z68.37 ; Non-alcoholic fatty liver disease K76.0 and Diastasis recti M62.08 [place] [address] [address] Dec, Hyperlipidemia E78.5 [place] [address] [address] Dec, Hyperlipidemia E78.5 [place] [address] [address] Dec, Essential hypertension I10 and Hyperlipi demia E78.5 [place] [address] [address] Jul, Lumbago with sciatica, right side M54.41 and Lumbago with sciatica, left side M54.42 [place] [address] [address] Jul, Essential hypertension I10 ; Chronic obs tructive pulmonary disease, unspecified COPD type J44.9 ; Lumbago with sciatica, right side M54.41 ; Lumbago with sciatica, left side M54.42 ; Other chronic pain G89.29 ; Tobacco abuse counseling Z71.6 ; 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 and Hyperlipidemia E78.5 [place] [address] [address] May, Hyperlipidemia E78.5 [facility] [address] [facility] [id number] [address] [place] [address] Feb, Acute bronchitis, unspecifie d organism J20.9 and Cough R05 [place] [address] [address] Feb, [place] [address] [address] Dec, Muscle ache M79.1 ; Hyperlipidemia E78.5 and Tick bite, sequela W57.XXXS [place] [address] [address] Dec, Essential hypertension I10 ; Ganglion cy st M67.40 ; Hyperlipidemia E78.5 ; Fibromyalgia M79.7 ; Muscle ache M79.1 and Tick bite, sequela W57.XXXS [place] [address] [address] Oct, [place] [address] [address] Jul, [place] [address] [address] Jul, Right groin pain R10.31 and Hoarseness R 49.0 [place] [address] [address] Jun, [place] [address] [address] Jun, Chronic obstructive pulmonary disease, u nspecified COPD type J44.9 and Bronchitis J40 [place] [address] [address] Jun, Right groin pain R10.31 [place] [address] [address] Jun, Right groin pain R10.31 [place] [address] [address] Jun, Right groin pain R10.31 ; Chronic obstru ctive pulmonary disease, unspecified COPD type J44.9 ; 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 ; Anxiety F41.9 ; Depression F32.9 and 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 [place] [address] [address] Feb, [address] [address] Jan, Hyperlipidemia 272.4 ; 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 and Hyperlipidemia E78.[address] [address] Jan, [address] [address] Dec, 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 ; Essential hypertension I10 ; Hyperlipidemia E78.5 ; Calculus of gallbladder without cholecystitis without obstruction K80.20 ; Tobacco use Z72.0 and BMI 33.0-33.9,adult Z68.[address] [address] Nov, Essential hypertension I10 [address] [address] Nov, At high risk for kidney injury Z91.[address] [address] Nov, Right adrenal mass E27.9 and Calculus of gallbladder without cholecystitis without obstruction K80.20 [facility] [address] [facility] [id number] [address] [place] [address] Sep, Musculoskeletal pain of righ t lower extremity M79.604 [place] [address] [address] 15 Oct, 2015 Chronic obstructive pulmonary disease, u nspecified COPD type J44.9 [facility] [address] [address] Oct, Tobacco abuse Z72.0 [facility] [address] [address] Sep, [facility] [address] [facility] [id number] [address] [address] August, Bronchitis J40 [place] [address] [address] Apr, Depression F32.9 ; Essential hypertensio n I10 ; Hyperlipidemia E78.5 ; Abdominal bloating R14.0 ; Irregular menstruation N92.6 ; Hoarseness or changing voice R49.9 ; Wheezing R06.2 and Tobacco abuse Z72.0 [place] [address] [place] [id number] [place] [address] Nov, Major depressive disorder, recurrent epi sode, moderate 296.32 [place] [address] [address] Nov, Hypertension 401.9 and Tobacco abuse 305 .1 [facility] [address] [address] Nov, [place] [address] [address] Nov, [facility] [address] [address] Nov, Major depressive disorder, recurrent epi sode, moderate 296.32 [place] [address] [address] Oct, [place] [address] [address] Oct, Major depressive disorder, recurrent epi sode, moderate 296.32 [facility] [address] [place] [address] [id number] [place] [address] Oct, [facility] [address] [id number] [place] [address] Sep, Hyperlipidemia 272.4 ; Depression 311 an d Urinary incontinence 788.30 [facility] [id number] [place] [address] Jul, [facility] [id number] [place] [address] Jul, [facility] [address] [id number] [place] [address] Jan, [facility] [id number] [place] [address] Jan, [facility] [id number] [place] [address] Jan, [facility] [id number] [place] [address] Jan, [facility] [address] [id number] [place] [address] 18 Dec, 2013 [facility] [id number] [place] [address] 18 Dec, 2013 [facility] [id number] [place] [address] 17 Dec, 2013 [facility] [id number] [place] [address] 17 Dec, 2013 [facility] [id number] [place] [address] 16 Dec, 2013 [facility] [id number] [place] [address] 16 Dec, 2013 [facility] [id number] [place] [address] 14 Oct, 2013 [facility] [id number] [place] [address] 14 Oct, 2013 [facility] [id number] [place] [address] August, [facility] [address] [id number] [place] [address] August, [facility] [address] [id number] [place] [address] August, [facility] [address] [id number] [place] [address] August, [facility] [address] [id number] [place] [address] Jul, [facility] [address] [id number] [place] [address] Jul, [facility] [address] [id number] [place] [address] Jun, [facility] [address] [id number] [place] [address] Jun, [facility] [address] [id number] [place] [address] Mar, [facility] [address] [id number] [place] [address] Mar, [facility] [address] [id number] [place] [address] Jan, [facility] [address] [id number] [place] [address] Oct, [facility] [address] [id number] [place] [address] August, [facility] [address] [id number] [place] [address] Jun, [facility] [address] [id number] [place] [address] Apr, [facility] [address] [id number] [place] [address] Mar, [facility] [address] [id number] [place] [address] Mar, [facility] [address] [id number] [place] [address] Mar, [facility] [id number] [place] [address] Mar, [facility] [id number] [place] [address] Nov, [facility] [id number] [place] [address] Nov, [facility] [id number] [place] [address] Mar, [facility] [address] [address] Mar, [facility] [id number] [place] [address] Oct, [facility] [id number] [place] [address] Oct, [facility] [id number] [place] [address] Sep, [facility] [id number] [place] [address] Apr, [facility] [id number] [place] [address] Feb, [facility] [id number] [place] [address] Jan, [facility] [id number] [place] [address] Jan, IMMUNIZATIONS No Known Immunizations SOCIAL HISTORY [...]
--- OUTSIDE RECORDS SUMMARY | 2019-08-08 15:48 | XMS REPORT ---
Author Author Lidia, Loren Doctor Organization [facility] Address Unknown Phone Unavailable Care Team Providers Care Print Production Manager Name Role Phone Migration, Doctor Unavailable Unavailable PROBLEMS Type Condition ICD9-CM Code [id number] Code Onset Dates Condition S tatus SNOMED Code Problem Chronic obstructive pulmonary disease, unspecified COPD ty pe J44.9 Active 56108655 Problem Hyperlipidemia E78.5 Active 43505 004 Problem Essential hypertension I10 Active 12013826 Problem GERD (gastroesophageal reflux disease) K21.9 Active 583348661 Problem Anxiety F41.9 Active 88132446 Problem Tobacco use Z72.0 Active 87681522 8 Problem Lumbago with sciatica, right side M54.41 Active 979956669 Problem Depression F32.9 Active 49396424 Problem Other chronic pain G89.29 Active 8 2402649 Problem Allergic rhinitis J30.9 Active 61 803169 Problem 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 Active 313556947 Problem 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 Active 62346147 Problem Fibromyalgia M79.7 Active 9255711 05 Problem Lumbago with sciatica, left side M54.42 Active [id number] ALLERGIES No Information ENCOUNTERS Encounter Location Date Diagnosis [place] [id number] [place] [address] Dec, [place] [address] [place] [address] Dec, Hyperlipidemia E78.5 [facility] [address] [place] [id number] [place] [address] Dec, Essential hypertension I10 a nd Hyperlipidemia E78.5 [facility] [address] [place] [id number] [address] [place] [address] Jul, Lumbago with sciatica, right side M54.41 and Lumbago with sciatica, left side M54.42 [place] [address] [address] Jul, Essential hypertension I10 ; Chronic obstructive pulmonary disease, unspecified COPD type J44.9 ; Lumbago with sciatica, right side M54.41 ; Lumbago with sciatica, left side M54.42 ; Other chronic pain G89.29 ; Tobacco abuse counseling Z71.6 ; 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 and Hyperlipidemia E78.5 [place] [address] [address] May, Hyperlipidemia E78.5 [facility] [address] [address] Feb, Acute bronchitis, unspecifie d organism J20.9 and Cough R05 [place] [address] [address] Feb, [place] [address] [address] Dec, Muscle ache M79.1 ; Hyperlip idemia E78.5 and Tick bite, sequela W57.XXXS [place] [address] [address] Dec, Essential hypertension I10 ; Ganglion cyst M67.40 ; Hyperlipidemia E78.5 ; Fibromyalgia M79.7 ; Muscle ache M79.1 and Tick bite, sequela W57.XXXS [place] [address] [address] Oct, [place] [address] [address] Jul, [place] [address] [address] Jul, Right groin pain R10.31 and Hoarseness R49.0 [place] [address] [address] Jun, [place] [address] [address] Jun, Chronic obstructive pulmonar y disease, unspecified COPD type J44.9 and Bronchitis J40 [address] [address] Jun, Right groin pain R10.[address] [address] Jun, Right groin pain R10.[address] [address] Jun, Right groin pain R10.31 ; Ch ronic obstructive pulmonary disease, unspecified COPD type J44.9 ; 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 ; Anxiety F41.9 ; Depression F32.9 and 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 [address] Feb, [address] [address] Jan, Hyperlipidemia 272.4 ; Adeno ma of right adrenal gland D35.01 and Hyperlipidemia E78.[address] [address] Jan, [address] [address] Dec, Adenoma of right adrenal gla nd D35.01 ; Essential hypertension I10 ; Hyperlipidemia E78.5 ; Calculus of gallbladder without cholecystitis without obstruction K80.20 ; Tobacco use Z72.0 and BMI 33.0-33.9,adult Z68.[address] [address] Nov, Essential hypertension I10 [address] [address] Nov, At high risk for kidney inju ry Z91.89 [facility] [address] [address] Nov, Right adrenal mass E27.9 and Calculus of gallbladder without cholecystitis without obstruction K80.20 [facility] [address] [address] Sep, Musculoskeletal pain of righ t lower extremity M79.604 [place] [address] [address] Oct, Chronic obstructive pulmonar y disease, unspecified COPD type J44.9 [place] [address] [address] Oct, Tobacco abuse Z72.0 [place] [address] [address] Sep, [facility] [address] [address] August, Bronchitis J40 [place] [address] [address] Apr, Depression F32.9 ; Essential hypertension I10 ; Hyperlipidemia E78.5 ; Abdominal bloating R14.0 ; Irregular menstruation N92.6 ; Hoarseness or changing voice R49.9 ; Wheezing R06.2 and Tobacco abuse Z72.0 [place] [address] [address] Nov, Major depressive disorder, r ecurrent episode, moderate 296.32 [place] [address] [address] Nov, Hypertension 401.9 and Tobac co abuse 305.1 [place] [address] [address] Nov, [place] [address] [address] Nov, [place] [address] [id number] [address] [place] [address] Nov, Major depressive disorder, r ecurrent episode, moderate 296.32 [facility] [address] [id number] [address] [place] [address] Oct, [facility] [address] [id number] [address] [place] [address] Oct, Major depressive disorder, r ecurrent episode, moderate 296.32 [facility] [address] [id number] [address] [place] [address] Oct, [facility] [address] [id number] [address] [place] [address] Sep, Hyperlipidemia 272.4 ; Depre ssion 311 and Urinary incontinence 788.30 [facility] [address] [id number] [address] [place] [address] Jul, [facility] [address] [id number] [address] [place] [address] Jul, [facility] [address] [id number] [address] [place] [address] Jan, [facility] [address] [id number] [address] [place] [address] Jan, [facility] [address] [id number] [address] [place] [address] Jan, [facility] [address] [id number] [address] [place] [address] Jan, [facility] [address] [id number] [address] [place] [address] Dec, [facility] [address] [id number] [address] [place] [address] 18 Dec, 2013 [facility] [address] [id number] [address] [place] [address] 17 Dec, 2013 [facility] [address] [id number] [address] [place] [address], [place] [address] 17 Dec, 2013 [facility] [address] [id number] [address] [place] [address], [place] [address] 16 Dec, 2013 [facility] [address] [id number] [address] [place] [address], [place] [address] 16 Dec, 2013 [facility] [address] [id number] [address] [place] [address], [place] [address] 14 Oct, 2013 [facility] [address] [id number] [address] [place] [address], [place] [address] 14 Oct, 2013 [facility] [address] [id number] [address] [place] [address], [place] [address] August, [facility] [address] [id number] [address] [place] [address], [place] [address] August, [facility] [address] [id number] [address] [place] [address], [place] [address] August, [facility] [address] [id number] [address] [place] [address], [place] [address] August, [facility] [address] [id number] [address] [place] [address], [place] [address] Jul, [facility] [address] [id number] [address] [place] [address], [place] [address] Jul, [facility] [address] [id number] [address] [place] [address], [place] [address] Jun, [facility] [address] [id number] [address] [place] [address], [place] [address] Jun, [facility] [address] [id number] [address] [place] [address], [place] [address] Mar, [facility] [address] [id number] [address] [place] [address], [place] [address] Mar, [facility] [address] [id number] [address] [place] [address], [place] [address] Jan, [facility] [address] [id number] [address] [place] [address], [place] [address] Oct, [facility] [address] [id number] [address] [place] [address], [place] [address] August, [facility] [address] [id number] [address] [place] [address], [place] [address] Jun, [facility] [address] [id number] [address] [place] [address], [place] [address] Apr, [facility] [address] [id number] [address] [place] [address], [place] [address] Mar, [facility] [address] [id number] [address] [place] [address], [place] [address] Mar, [facility] [address] [id number] [address] [place] [address], [place] [address] Mar, [facility] [address] [id number] [address] [place] [address], [place] [address] Mar, [facility] [address] [id number] [address] [place] [address], [place] [address] Nov, [facility] [address] [id number] [address] [place] [address], [place] [address] Nov, [facility] [address] [id number] [address] [place] [address], [place] [address] Mar, [facility] [address] [id number] [address] [place] [address], [place] [address] Mar, [facility] [address] [id number] [address] [place] [address], [place] [address] Oct, [facility] [address] [id number] [address] [place] [address], [place] [address] Oct, [facility] [address] [id number] [address] [place] [address], [place] [address] Sep, [facility] [address] [id number] [address] [place] [address] Apr, [facility] [address] [facility] [id number] [address] [place] [address] Feb, [facility] [address] [facility] [id number] [address] [place] [address] Jan, [facility] [address] [facility] [id number] [address] [place] [address] Jan, IMMUNIZATIONS No Known Immunizations SOCIAL HISTORY Never Assessed REASON FOR VISIT PLAN OF CARE VITAL SIGNS Height 67 in 2014-01-04 Weight 219.09 lbs 2014-01-04 Temperature 98.3 degrees Fahrenheit 2014-01-04 Heart Rate 84 bpm 2014-01-04 Respiratory Rate 20 2014-01-04 Blood pressure systolic 138 mmHg 2014-01-04 Blood pressure diastolic 84 mmHg 2014-01-04 MEDICATIONS Unknown Medications RESULTS No Results PROCEDURES [...]
--- OUTSIDE RECORDS SUMMARY | 2019-08-08 15:48 | XMS REPORT ---
Author Author Lidia, Loren Doctor Organization [facility] Address Unknown Phone Unavailable Care Team Providers Care Office Messenger Name Role Phone Migration, Doctor Unavailable Unavailable PROBLEMS Type Condition ICD9-CM Code QJM68-MY Code Onset Dates Condition S tatus SNOMED Code Problem Chronic obstructive pulmonary disease, unspecified COPD ty pe J44.9 Active 94108152 Problem Hyperlipidemia E78.5 Active 59321 004 Problem Essential hypertension I10 Active 33000673 Problem Depression F32.9 Active 77866848 Problem Allergic rhinitis J30.9 Active 61 004712 Problem Anxiety F41.9 Active 50867798 Problem GERD (gastroesophageal reflux disease) K21.9 Active 983211757 Problem 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 Active 92808462 Problem Fibromyalgia M79.7 Active 1255519 05 Problem Lumbago with sciatica, left side M54.42 Active 821709205 Problem Elevated hemoglobin D58.2 Active 471863762 Problem 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 Active 103908590 Problem BMI 40.0-44.9, adult Z68.41 Active 879568629 Problem Tobacco use Z72.0 Active 49543391 8 Problem Lumbago with sciatica, right side M54.41 Active 485999921 Problem Other chronic pain G89.29 Active 8 3781521 Problem BMI 37.0-37.9, adult Z68.37 Active 752453035 Problem Non-alcoholic fatty liver disease K76.0 Active 918624196 ALLERGIES No Information ENCOUNTERS Encounter Location Date Diagnosis [facility] [place] [address] [id number] [place] [address] May, [facility] [place] [address] [id number] [place] [address] Apr, Decreased GFR R94.4 [facility] [place] [address] [id number] [place] [address] Apr, Well woman exam with routine gynecologic al exam Z01.419 ; Screening mammogram, encounter for Z12.31 ; Decreased GFR R94.4 ; Elevated hemoglobin D58.2 and BMI 40.0-44.9, adult Z68.41 [place] [address] [address] 08 Apr, 2019 Decreased GFR R94.4 [place] [address] [place] [id number] 02 Apr, 2019 Swelling R60.9 ; Bloating R14.0 ; Screen ing for colon cancer Z12.11 ; Hyperlipidemia E78.5 ; Depression F32.9 ; Essential hypertension I10 and Non- alcoholic fatty liver disease K76.0 [facility] [address] [address] Mar, Generalized edema R60.[address] [address] Mar, [facility] [address] [address] Mar, Chronic obstructive pulmonar y disease, unspecified COPD type J44.9 and Pedal edema R60.0 [place] [address] [address] Feb, [address] [address] Dec, Hyperlipidemia E78.5 ; Essential hyperte nsion I10 ; Epigastric pain R10.13 ; Colon cancer screening Z12.11 ; Tobacco use Z72.0 ; BMI 37.0-37.9, adult Z68.37 ; Non-alcoholic fatty liver disease K76.0 and Diastasis recti M62.08 [place] [address] [address] Dec, Hyperlipidemia E78.5 [place] [address] [address] Dec, Hyperlipidemia E78.5 [place] [address] [address] Dec, Essential hypertension I10 and Hyperlipi demia E78.5 [facility] [place] [address] [address] Jul, Lumbago with sciatica, right side M54.41 and Lumbago with sciatica, left side M54.42 [place] [address] [address] Jul, Essential hypertension I10 ; Chronic obs tructive pulmonary disease, unspecified COPD type J44.9 ; Lumbago with sciatica, right side M54.41 ; Lumbago with sciatica, left side M54.42 ; Other chronic pain G89.29 ; Tobacco abuse counseling Z71.6 ; 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 and Hyperlipidemia E78.5 [place] [address] [address] May, Hyperlipidemia E78.5 [facility] [address] [facility] [id number] [address] Feb, Acute bronchitis, unspecifie d organism J20.9 and Cough R05 [address] [address] Feb, [place] [address] [address] Dec, Muscle ache M79.1 ; Hyperlipidemia E78.5 and Tick bite, sequela W57.XXXS [place] [address] [address] Dec, Essential hypertension I10 ; Ganglion cy st M67.40 ; Hyperlipidemia E78.5 ; Fibromyalgia M79.7 ; Muscle ache M79.1 and Tick bite, sequela W57.XXXS [place] [address] [address] Oct, [place] [address] [address] Jul, [place] [address] [address] Jul, Right groin pain R10.31 and Hoarseness R 49.0 [place] [address] [address] Jun, [address] [address] Jun, Chronic obstructive pulmonary disease, u nspecified COPD type J44.9 and Bronchitis J40 [place] [address] [address] Jun, Right groin pain R10.[address] [address] Jun, Right groin pain R10.[address] [address] Jun, Right groin pain R10.31 ; Chronic obstru ctive pulmonary disease, unspecified COPD type J44.9 ; 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 ; Anxiety F41.9 ; Depression F32.9 and 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 [address] Feb, [address] [address] Jan, Hyperlipidemia 272.4 ; 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 and Hyperlipidemia E78.[address] [address] Jan, [address] [address] 15 Dec, 2016 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 ; Essential hypertension I10 ; Hyperlipidemia E78.5 ; Calculus of gallbladder without cholecystitis without obstruction K80.20 ; Tobacco use Z72.0 and BMI 33.0-33.9,adult Z68.[address] [address] Nov, Essential hypertension I10 [facility] [place] [address] [address] Nov, At high risk for kidney injury Z91.89 [place] [address] [address] Nov, Right adrenal mass E27.9 and Calculus of gallbladder without cholecystitis without obstruction K80.20 [facility] [address] [place] [address] Sep, Musculoskeletal pain of righ t lower extremity M79.604 [place] [address] [address] Oct, Chronic obstructive pulmonary disease, u nspecified COPD type J44.9 [place] [address] [address] Oct, Tobacco abuse Z72.0 [place] [address] [address] Sep, [facility] [address] [place] [id number] [place] [address] August, Bronchitis J40 [place] [address] [address] Apr, Depression F32.9 ; Essential hypertensio n I10 ; Hyperlipidemia E78.5 ; Abdominal bloating R14.0 ; Irregular menstruation N92.6 ; Hoarseness or changing voice R49.9 ; Wheezing R06.2 and Tobacco abuse Z72.0 [place] [address] [address] Nov, Major depressive disorder, recurrent epi sode, moderate 296.32 [place] [address] [address] Nov, Hypertension 401.9 and Tobacco abuse 305 .1 [place] [address] [address] Nov, [place] [address] [place] [id number] [place] [address] Nov, [facility] [place] [address] [address] Nov, Major depressive disorder, recurrent epi sode, moderate 296.32 [facility] [place] [address] [place] [id number] [place] [address] Oct, [facility] [place] [address] [address] Oct, Major depressive disorder, recurrent epi sode, moderate 296.32 [facility] [place] [address] [address] Oct, [facility] [place] [address] [address] Sep, Hyperlipidemia 272.4 ; Depression 311 an d Urinary incontinence 788.30 [facility] [place] [address] [address] Jul, [facility] [place] [address] [address] Jul, [facility] [place] [address] [address] Jan, [facility] [place] [address] [address] Jan, [facility] [place] [address] [address] Jan, [facility] [place] [address] [place] [id number] [place] [address] Jan, [facility] [place] [address] [address] Dec, [facility] [place] [address] [address] 18 Dec, 2013 [facility] [place] [address] [address] 17 Dec, 2013 [facility] [place] [address] [place] [address] 17 Dec, 2013 [facility] [address] [facility] [id number] [facility] [place] [address] 16 Dec, 2013 [facility] [address] [facility] [id number] [place] [address] 16 Dec, 2013 [facility] [address] [id number] [place] [address] 14 Oct, 2013 [facility] [address] [id number] [place] [address] Oct, [facility] [address] [id number] [place] [address] August, [facility] [address] [id number] [place] [address] August, [facility] [address] [id number] [place] [address] August, [facility] [address] [id number] [place] [address] August, [facility] [address] [id number] [place] [address] Jul, [facility] [address] [id number] [place] [address] Jul, [facility] [address] [id number] [place] [address] Jun, [facility] [address] [id number] [place] [address] Jun, [facility] [address] [id number] [place] [address] Mar, [facility] [address] [id number] [place] [address] Mar, [facility] [address] [id number] [place] [address] Jan, [facility] [address] [id number] [place] [address] Oct, [facility] [address] [id number] [place] [address] August, [facility] [address] [id number] [place] [address] Jun, [facility] [address] [id number] [place] [address] Apr, [facility] [address] [id number] [place] [address] Mar, [facility] [address] [id number] [place] [address] Mar, [facility] [address] [id number] [place] [address] Mar, [facility] [address] [id number] [place] [address] Mar, [facility] [address] [id number] [place] [address] Nov, [facility] [address] [id number] [place] [address] Nov, [facility] [address] [id number] [place] [address] Mar, [facility] [address] [id number] [place] [address] Mar, [facility] [address] [id number] [place] [address] Oct, [facility] [address] [id number] [place] [address] Oct, [facility] [address] [id number] [place] [address] Sep, [facility] [address] [place] [id number] [place] [address] Apr, [facility] [address] [id number] [place] [address] Feb, [facility] [address] [id number] [place] [address] Jan, [facility] [place] [address] [facility] [id number] [place] [address] Jan, IMMUNIZATIONS No Known Immunizations SOCIAL HISTORY [...]
--- OUTSIDE RECORDS SUMMARY | 2019-08-08 15:48 | XMS REPORT ---
Author Author Lidia, Loren Doctor Organization [facility] Address Unknown Phone Unavailable Care Team Providers Care Sales Representative Business Courses Name Role Phone Migration, Doctor Unavailable Unavailable PROBLEMS Type Condition ICD9-CM Code FDQ03-MV Code Onset Dates Condition S tatus SNOMED Code Problem Chronic obstructive pulmonary disease, unspecified COPD ty pe J44.9 Active 08192381 Problem Hyperlipidemia E78.5 Active 60174 004 Problem Essential hypertension I10 Active 12142337 Problem Depression F32.9 Active 54754805 Problem Allergic rhinitis J30.9 Active 61 808475 Problem Anxiety F41.9 Active 86532799 Problem GERD (gastroesophageal reflux disease) K21.9 Active 117461617 Problem 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 Active 52406938 Problem Fibromyalgia M79.7 Active 8863040 05 Problem Lumbago with sciatica, left side M54.42 Active 233323108 Problem Elevated hemoglobin D58.2 Active 596970438 Problem 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 Active 394093609 Problem BMI 40.0-44.9, adult Z68.41 Active 611108941 Problem Tobacco use Z72.0 Active 34311037 8 Problem Lumbago with sciatica, right side M54.41 Active 689348912 Problem Other chronic pain G89.29 Active 8 9430877 Problem BMI 37.0-37.9, adult Z68.37 Active 204521014 Problem Non-alcoholic fatty liver disease K76.0 Active 790800592 ALLERGIES No Information ENCOUNTERS Encounter Location Date Diagnosis [facility] [address] [id number] [place] [address] May, [facility] [address] [id number] [place] [address] Apr, Decreased GFR R94.4 [facility] [address] [id number] [place] [address] Apr, Well woman exam with routine gynecologic al exam Z01.419 ; Screening mammogram, encounter for Z12.31 ; Decreased GFR R94.4 ; Elevated hemoglobin D58.2 and BMI 40.0-44.9, adult Z68.41 [place] [address] [address] 08 Apr, 2019 Decreased GFR R94.4 [place] [address] [place] [address] 02 Apr, 2019 Swelling R60.9 ; Bloating R14.0 ; Screen ing for colon cancer Z12.11 ; Hyperlipidemia E78.5 ; Depression F32.9 ; Essential hypertension I10 and Non- alcoholic fatty liver disease K76.0 [facility] [address] [address] Mar, Generalized edema R60.[address] [address] Mar, [facility] [address] [address] Mar, Chronic obstructive pulmonar y disease, unspecified COPD type J44.9 and Pedal edema R60.0 [place] [address] [address] Feb, [address] [address] Dec, Hyperlipidemia E78.5 ; Essential hyperte nsion I10 ; Epigastric pain R10.13 ; Colon cancer screening Z12.11 ; Tobacco use Z72.0 ; BMI 37.0-37.9, adult Z68.37 ; Non-alcoholic fatty liver disease K76.0 and Diastasis recti M62.08 [place] [address] [address] Dec, Hyperlipidemia E78.5 [place] [address] [address] Dec, Hyperlipidemia E78.5 [place] [address] [address] Dec, Essential hypertension I10 and Hyperlipi demia E78.5 [facility] [address] [address] Jul, Lumbago with sciatica, right side M54.41 and Lumbago with sciatica, left side M54.42 [place] [address] [address] Jul, Essential hypertension I10 ; Chronic obs tructive pulmonary disease, unspecified COPD type J44.9 ; Lumbago with sciatica, right side M54.41 ; Lumbago with sciatica, left side M54.42 ; Other chronic pain G89.29 ; Tobacco abuse counseling Z71.6 ; 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 and Hyperlipidemia E78.5 [place] [address] [address] May, Hyperlipidemia E78.5 [facility] [address] [facility] [id number] [place] [address] Feb, Acute bronchitis, unspecifie d organism J20.9 and Cough R05 [address] [address] Feb, [place] [address] [address] Dec, Muscle ache M79.1 ; Hyperlipidemia E78.5 and Tick bite, sequela W57.XXXS [place] [address] [address] Dec, Essential hypertension I10 ; Ganglion cy st M67.40 ; Hyperlipidemia E78.5 ; Fibromyalgia M79.7 ; Muscle ache M79.1 and Tick bite, sequela W57.XXXS [place] [address] [address] Oct, [place] [address] [address] Jul, [place] [address] [address] Jul, Right groin pain R10.31 and Hoarseness R 49.0 [place] [address] [address] Jun, [address] [address] Jun, Chronic obstructive pulmonary disease, u nspecified COPD type J44.9 and Bronchitis J40 [place] [address] [address] Jun, Right groin pain R10.[address] [address] Jun, Right groin pain R10.[address] [address] Jun, Right groin pain R10.31 ; Chronic obstru ctive pulmonary disease, unspecified COPD type J44.9 ; 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 ; Anxiety F41.9 ; Depression F32.9 and 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 [address] Feb, [address] [address] Jan, Hyperlipidemia 272.4 ; 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 and Hyperlipidemia E78.[address] [address] Jan, [address] [address] 15 Dec, 2016 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 ; Essential hypertension I10 ; Hyperlipidemia E78.5 ; Calculus of gallbladder without cholecystitis without obstruction K80.20 ; Tobacco use Z72.0 and BMI 33.0-33.9,adult Z68.[address] [address] Nov, Essential hypertension I10 [facility] [address] [address] Nov, At high risk for kidney injury Z91.89 [place] [address] [address] Nov, Right adrenal mass E27.9 and Calculus of gallbladder without cholecystitis without obstruction K80.20 [facility] [address] [place] [address] Sep, Musculoskeletal pain of righ t lower extremity M79.604 [place] [address] [address] Oct, Chronic obstructive pulmonary disease, u nspecified COPD type J44.9 [place] [address] [address] Oct, Tobacco abuse Z72.0 [place] [address] [address] Sep, [facility] [address] [place] [id number] [address] [place] [address] August, Bronchitis J40 [place] [address] [address] Apr, Depression F32.9 ; Essential hypertensio n I10 ; Hyperlipidemia E78.5 ; Abdominal bloating R14.0 ; Irregular menstruation N92.6 ; Hoarseness or changing voice R49.9 ; Wheezing R06.2 and Tobacco abuse Z72.0 [place] [address] [address] Nov, Major depressive disorder, recurrent epi sode, moderate 296.32 [place] [address] [address] Nov, Hypertension 401.9 and Tobacco abuse 305 .1 [place] [address] [address] Nov, [place] [address] [place] [id number] [place] [address] Nov, [facility] [address] [address] Nov, Major depressive disorder, recurrent epi sode, moderate 296.32 [facility] [address] [place] [id number] [place] [address] Oct, [facility] [address] [address] Oct, Major depressive disorder, recurrent epi sode, moderate 296.32 [facility] [address] [address] Oct, [facility] [address] [address] Sep, Hyperlipidemia 272.4 ; Depression 311 an d Urinary incontinence 788.30 [facility] [address] [address] Jul, [facility] [address] [address] Jul, [facility] [address] [address] Jan, [facility] [address] [address] Jan, [facility] [address] [address] Jan, [facility] [address] [place] [id number] [place] [address] Jan, [facility] [address] [address] Dec, [facility] [address] [address] 18 Dec, 2013 [facility] [address] [address] 17 Dec, 2013 [facility] [address] [place] [address] 17 Dec, 2013 [facility] [address] [facility] [id number] [facility] [place] [address] 16 Dec, 2013 [facility] [address] [facility] [id number] [place] [address] 16 Dec, 2013 [facility] [address] [id number] [place] [address] 14 Oct, 2013 [facility] [address] [id number] [place] [address] Oct, [facility] [address] [id number] [place] [address] August, [facility] [address] [id number] [place] [address] August, [facility] [address] [id number] [place] [address] August, [facility] [address] [id number] [place] [address] August, [facility] [address] [id number] [place] [address] Jul, [facility] [address] [id number] [place] [address] Jul, [facility] [address] [id number] [place] [address] Jun, [facility] [address] [id number] [place] [address] Jun, [facility] [address] [id number] [place] [address] Mar, [facility] [address] [id number] [place] [address] Mar, [facility] [address] [id number] [place] [address] Jan, [facility] [address] [id number] [place] [address] Oct, [facility] [address] [id number] [place] [address] August, [facility] [address] [id number] [place] [address] Jun, [facility] [address] [id number] [place] [address] Apr, [facility] [address] [id number] [place] [address] Mar, [facility] [address] [id number] [place] [address] Mar, [facility] [address] [id number] [place] [address] Mar, [facility] [address] [id number] [place] [address] Mar, [facility] [address] [id number] [place] [address] Nov, [facility] [address] [id number] [place] [address] Nov, [facility] [address] [id number] [place] [address] Mar, [facility] [address] [id number] [place] [address] Mar, [facility] [address] [id number] [place] [address] Oct, [facility] [address] [id number] [place] [address] Oct, [facility] [address] [id number] [place] [address] Sep, [facility] [address] [place] [id number] [place] [address] Apr, [facility] [address] [id number] [place] [address] Feb, [facility] [address] [id number] [place] [address] Jan, [facility] [address] [facility] [id number] [place] [address] Jan, IMMUNIZATIONS No Known Immunizations SOCIAL HISTORY [...]
--- OUTSIDE RECORDS SUMMARY | 2019-08-08 15:48 | XMS REPORT ---
Author Author Lidia, Loren Doctor Organization [facility] Address Unknown Phone Unavailable Care Team Providers Care Geospatial Program Management Officer Name Role Phone Migration, Doctor Unavailable Unavailable PROBLEMS Type Condition ICD9-CM Code ADA58-HL Code Onset Dates Condition S tatus SNOMED Code Problem Chronic obstructive pulmonary disease, unspecified COPD ty pe J44.9 Active 72940246 Problem Hyperlipidemia E78.5 Active 96317 004 Problem Essential hypertension I10 Active 58224853 Problem Depression F32.9 Active 18029759 Problem Allergic rhinitis J30.9 Active 61 704429 Problem Anxiety F41.9 Active 98787044 Problem GERD (gastroesophageal reflux disease) K21.9 Active 296646317 Problem 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 Active 03760845 Problem Fibromyalgia M79.7 Active 9361671 05 Problem Lumbago with sciatica, left side M54.42 Active 696192088 Problem Elevated hemoglobin D58.2 Active 014555945 Problem 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 Active 259400882 Problem BMI 40.0-44.9, adult Z68.41 Active 738046114 Problem Tobacco use Z72.0 Active 29528454 8 Problem Lumbago with sciatica, right side M54.41 Active 561818529 Problem Other chronic pain G89.29 Active 8 4863855 Problem BMI 37.0-37.9, adult Z68.37 Active 575992909 Problem Non-alcoholic fatty liver disease K76.0 Active 405525402 ALLERGIES No Information ENCOUNTERS Encounter Location Date Diagnosis [facility] [address] [id number] [place] [address] May, [facility] [address] [id number] [place] [address] Apr, Decreased GFR R94.4 [facility] [address] [id number] [place] [address] Apr, Well woman exam with routine gynecologic al exam Z01.419 ; Screening mammogram, encounter for Z12.31 ; Decreased GFR R94.4 ; Elevated hemoglobin D58.2 and BMI 40.0-44.9, adult Z68.41 [place] [address] [address] 08 Apr, 2019 Decreased GFR R94.4 [place] [address] [place] [address] 02 Apr, 2019 Swelling R60.9 ; Bloating R14.0 ; Screen ing for colon cancer Z12.11 ; Hyperlipidemia E78.5 ; Depression F32.9 ; Essential hypertension I10 and Non- alcoholic fatty liver disease K76.0 [facility] N [address] [address] Mar, Generalized edema R60.[address] [address] Mar, [facility] [address] [address] Mar, Chronic obstructive pulmonar y disease, unspecified COPD type J44.9 and Pedal edema R60.0 [place] [address] [address] Feb, [address] [address] Dec, Hyperlipidemia E78.5 ; Essential hyperte nsion I10 ; Epigastric pain R10.13 ; Colon cancer screening Z12.11 ; Tobacco use Z72.0 ; BMI 37.0-37.9, adult Z68.37 ; Non-alcoholic fatty liver disease K76.0 and Diastasis recti M62.08 [place] [address] [address] Dec, Hyperlipidemia E78.5 [place] [address] [address] Dec, Hyperlipidemia E78.5 [place] [address] [address] Dec, Essential hypertension I10 and Hyperlipi demia E78.5 [facility] [address] [address] Jul, Lumbago with sciatica, right side M54.41 and Lumbago with sciatica, left side M54.42 [place] [address] [address] Jul, Essential hypertension I10 ; Chronic obs tructive pulmonary disease, unspecified COPD type J44.9 ; Lumbago with sciatica, right side M54.41 ; Lumbago with sciatica, left side M54.42 ; Other chronic pain G89.29 ; Tobacco abuse counseling Z71.6 ; 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 and Hyperlipidemia E78.5 [place] [address] [address] May, Hyperlipidemia E78.[address] [facility] [address] [facility] [id number] [place] [address] Feb, Acute bronchitis, unspecifie d organism J20.9 and Cough R05 [address] [address] Feb, [place] [address] [address] Dec, Muscle ache M79.1 ; Hyperlipidemia E78.5 and Tick bite, sequela W57.XXXS [place] [address] [address] Dec, Essential hypertension I10 ; Ganglion cy st M67.40 ; Hyperlipidemia E78.5 ; Fibromyalgia M79.7 ; Muscle ache M79.1 and Tick bite, sequela W57.XXXS [place] [address] [address] Oct, [place] [address] [address] Jul, [place] [address] [address] Jul, Right groin pain R10.31 and Hoarseness R 49.0 [place] [address] [address] Jun, [address] [address] Jun, Chronic obstructive pulmonary disease, u nspecified COPD type J44.9 and Bronchitis J40 [place] [address] [address] Jun, Right groin pain R10.[address] [address] Jun, Right groin pain R10.[address] [address] Jun, Right groin pain R10.31 ; Chronic obstru ctive pulmonary disease, unspecified COPD type J44.9 ; 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 ; Anxiety F41.9 ; Depression F32.9 and 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 [address] Feb, [address] [address] Jan, Hyperlipidemia 272.4 ; 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 and Hyperlipidemia E78.[address] [address] Jan, [address] [address] 15 Dec, 2016 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 ; Essential hypertension I10 ; Hyperlipidemia E78.5 ; Calculus of gallbladder without cholecystitis without obstruction K80.20 ; Tobacco use Z72.0 and BMI 33.0-33.9,adult Z68.[address] [address] Nov, Essential hypertension I10 [facility] [address] [address] Nov, At high risk for kidney injury Z91.89 [place] [address] [address] Nov, Right adrenal mass E27.9 and Calculus of gallbladder without cholecystitis without obstruction K80.20 [facility] [address] [place] [address] Sep, Musculoskeletal pain of righ t lower extremity M79.604 [place] [address] [address] Oct, Chronic obstructive pulmonary disease, u nspecified COPD type J44.9 [place] [address] [address] Oct, Tobacco abuse Z72.0 [place] [address] [address] Sep, [facility] W[facility] [address] [place] [id number] [address] [place] [address] August, Bronchitis J40 [place] [address] [address] Apr, Depression F32.9 ; Essential hypertensio n I10 ; Hyperlipidemia E78.5 ; Abdominal bloating R14.0 ; Irregular menstruation N92.6 ; Hoarseness or changing voice R49.9 ; Wheezing R06.2 and Tobacco abuse Z72.0 [place] [address] [address] Nov, Major depressive disorder, recurrent epi sode, moderate 296.32 [place] [address] [address] Nov, Hypertension 401.9 and Tobacco abuse 305 .1 [place] [address] [address] Nov, [place] [address] [place] [id number] [place] [address] Nov, [facility] [address] [address] Nov, Major depressive disorder, recurrent epi sode, moderate 296.32 [facility] [address] [place] [id number] [place] [address] Oct, [facility] [address] [address] Oct, Major depressive disorder, recurrent epi sode, moderate 296.32 [facility] [address] [address] Oct, [facility] [address] [address] Sep, Hyperlipidemia 272.4 ; Depression 311 an d Urinary incontinence 788.30 [facility] [address] [address] Jul, [facility] [address] [address] Jul, [facility] [address] [address] Jan, [facility] [address] [address] Jan, [facility] [address] [address] Jan, [facility] [address] [place] [id number] [place] [address] Jan, [facility] [address] [address] Dec, [facility] [address] [address] 18 Dec, 2013 [facility] [address] [address] 17 Dec, 2013 [facility] [address] [place] [address] 17 Dec, 2013 [facility] [address] [facility] [id number] [facility] [place] [address] 16 Dec, 2013 [facility] [address] [facility] [id number] [place] [address] 16 Dec, 2013 [facility] [address] [id number] [place] [address] 14 Oct, 2013 [facility] [address] [id number] [place] [address] Oct, [facility] [address] [id number] [place] [address] August, [facility] [address] [id number] [place] [address] August, [facility] [address] [id number] [place] [address] August, [facility] [address] [id number] [place] [address] August, [facility] [address] [id number] [place] [address] Jul, [facility] [address] [id number] [place] [address] Jul, [facility] [address] [id number] [place] [address] Jun, [facility] [address] [id number] [place] [address] Jun, [facility] [address] [id number] [place] [address] Mar, [facility] [address] [id number] [place] [address] Mar, [facility] [address] [id number] [place] [address] Jan, [facility] [address] [id number] [place] [address] Oct, [facility] [address] [id number] [place] [address] August, [facility] [address] [id number] [place] [address] Jun, [facility] [address] [id number] [place] [address] Apr, [facility] [address] [id number] [place] [address] Mar, [facility] [address] [id number] [place] [address] Mar, [facility] [address] [id number] [place] [address] Mar, [facility] [address] [id number] [place] [address] Mar, [facility] [address] [id number] [place] [address] Nov, [facility] [address] [id number] [place] [address] Nov, [facility] [address] [id number] [place] [address] Mar, [facility] [address] [id number] [place] [address] Mar, [facility] [address] [id number] [place] [address] Oct, [facility] [address] [id number] [place] [address] Oct, [facility] [address] [id number] [place] [address] Sep, [facility] [id number] [place] [address] Apr, [facility] [address] [id number] [place] [address] Feb, [facility] [address] [id number] [place] [address] Jan[facility] [address] [facility] [id number] [place] [address] Jan, IMMUNIZATIONS No Known Immunizations SOCIAL HISTORY Never Assessed REASON FOR VISIT PLAN OF CARE VITAL SIGNS MEDICATIONS Unknown Medications RESULTS No Results PROCEDURES Procedure Date Ordered Result Body Site US EXAM, PELVIC, COMPLETE August 06, 2013 INSTRUCTIONS MEDICATIONS ADMINISTERED No Known Medications MEDICAL [...]
--- OUTSIDE RECORDS SUMMARY | 2019-08-08 15:49 | XMS REPORT ---
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 Active 80740167 Problem 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 Active 075478157 Problem GERD (gastroesophageal reflux disease) K21.9 Active 612056464 Problem Depression F32.9 Active 62475469 Problem Tobacco use Z72.0 Active 04104191 8 Problem Anxiety F41.9 Active 78479700 ALLERGIES No Information ENCOUNTERS Encounter Location Date Diagnosis [facility] [address] [facility] [id number] [address] [place] [address] Dec, [facility] [address] [facility] [id number] [address] [place] [address] Oct, [facility] [address] [facility] [id number] [address] [place] [address] Jul, [facility] [address] [facility] [id number] [address] [place] [address] Jul, Right groin pain R10.31 and Hoarseness R49.0 [facility] [address] [facility] [id number] [address] [place] [address] Jun, [facility] [address] [facility] [id number] [address] [place] [address] Jun, Chronic obstructive pulmonar y disease, unspecified COPD type J44.9 and Bronchitis J40 [place] [address] [address] Jun, Right groin pain R10.31 [place] [address] [place] [id number] [place] [address] Jun, Right groin pain R10.31 [place] [address] [address] Jun, Right groin pain R10.31 ; Ch ronic obstructive pulmonary disease, unspecified COPD type J44.9 ; 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 ; Anxiety F41.9 ; Depression F32.9 and 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 [address] Feb, [address] [address] Jan, Hyperlipidemia 272.4 ; Adeno ma of right adrenal gland D35.01 and Hyperlipidemia E78.[address] [address] Jan, [address] [address] Dec, Adenoma of right adrenal gla nd D35.01 ; Essential hypertension I10 ; Hyperlipidemia E78.5 ; Calculus of gallbladder without cholecystitis without obstruction K80.20 ; Tobacco use Z72.0 and BMI 33.0-33.9,adult Z68.33 [place] [address] [address] Nov, Essential hypertension I10 [address] [address] Nov, At high risk for kidney inju ry Z91.[address] [address] Nov, Right adrenal mass E27.9 and Calculus of gallbladder without cholecystitis without obstruction K80.20 [facility] [address] [address] Sep, Musculoskeletal pain of righ t lower extremity M79.604 [facility] [address] [address] Oct, Chronic obstructive pulmonar y disease, unspecified COPD type J44.9 [facility] [address] [address] Oct, Tobacco abuse Z72.0 [place] [address] [address] Sep, [facility] [address] [address] August, Bronchitis J40 [place] [address] [address] Apr, Depression F32.9 ; Essential hypertension I10 ; Hyperlipidemia E78.5 ; Abdominal bloating R14.0 ; Irregular menstruation N92.6 ; Hoarseness or changing voice R49.9 ; Wheezing R06.2 and Tobacco abuse Z72.0 [place] [address] [address] Nov, Major depressive disorder, r ecurrent episode, moderate 296.32 [place] [address] [address] Nov, Hypertension 401.9 and Tobac co abuse 305.1 [place] [address] [address] Nov, [place] [address] [address] Nov, [place] [address] [address] Nov, Major depressive disorder, r ecurrent episode, moderate 296.32 [facility] [address] [id number] [address] [place] [address] Oct, [facility] [address] [id number] [address] [place] [address] Oct, Major depressive disorder, r ecurrent episode, moderate 296.32 [facility] [address] [id number] [address] [place] [address] Oct, [facility] [address] [id number] [address] [place] [address] Sep, Hyperlipidemia 272.4 ; Depre ssion 311 and Urinary incontinence 788.30 [facility] [address] [id number] [address] [place] [address] Jul, [facility] [address] [id number] [address] [place] [address] Jul, [facility] [address] [id number] [address] [place] [address] Jan, [facility] [address] [id number] [address] [place] [address] Jan, [facility] [address] [id number] [address] [place] [address] Jan, [facility] [address] [id number] [address] [place] [address] Jan, [facility] [address] [id number] [address] [place] [address] Dec, [facility] [address] [id number] [address] [place] [address] 18 Dec, 2013 [facility] [address] [id number] [address] [place] [address] 17 Dec, 2013 [facility] [address] [id number] [address] [place] [address] Dec, [facility] [address] [id number] [address] [place] [address], [place] [address] 16 Dec, 2013 [facility] [address] [id number] [address] [place] [address], [place] [address] 16 Dec, 2013 [facility] [address] [id number] [address] [place] [address], [place] [address] 14 Oct, 2013 [facility] [address] [id number] [address] [place] [address], [place] [address] Oct, [facility] [address] [id number] [address] [place] [address], [place] [address] August, [facility] [address] [id number] [address] [place] [address], [place] [address] August, [facility] [address] [id number] [address] [place] [address], [place] [address] August, [facility] [address] [id number] [address] [place] [address], [place] [address] August, [facility] [address] [id number] [address] [place] [address], [place] [address] Jul, [facility] [address] [id number] [address] [place] [address], [place] [address] Jul, [facility] [address] [id number] [address] [place] [address], [place] [address] Jun, [facility] [address] [id number] [address] [place] [address], [place] [address] Jun, [facility] [address] [id number] [address] [place] [address], [place] [address] Mar, [facility] [address] [id number] [address] [place] [address], [place] [address] Mar, [facility] [address] [id number] [address] [place] [address], [place] [address] Jan, [facility] [address] [id number] [address] [place] [address], [place] [address] Oct, [facility] [address] [id number] [address] [place] [address], [place] [address] August, [facility] [address] [id number] [address] [place] [address], [place] [address] Jun, [facility] [address] [id number] [address] [place] [address], [place] [address] Apr, [facility] [address] [id number] [address] [place] [address], [place] [address] Mar, [facility] [address] [id number] [address] [place] [address], [place] [address] Mar, [facility] [address] [id number] [address] [place] [address], [place] [address] Mar, [facility] [address] [id number] [address] [place] [address], [place] [address] Mar, [facility] [address] [id number] [address] [place] [address], [place] [address] Nov, [facility] [address] [id number] [address] [place] [address], [place] [address] Nov, [facility] [address] [id number] [address] [place] [address], [place] [address] Mar, [facility] [address] [id number] [address] [place] [address], [place] [address] Mar, [facility] [address] [id number] [address] [place] [address], [place] [address] Oct, [facility] [address] [id number] [address] [place] [address], [place] [address] Oct, [facility] [address] [id number] [address] [place] [address], [place] [address] Sep, [facility] [address] [id number] [address] [place] [address], [place] [address] 13 Apr, 2010 [facility] [address] [id number] [address] [address] Feb, [facility] [address] [facility] [id number] [address] [place] [address] Jan, [facility] [address] [facility] [id number] [address] [place] [address] Jan, IMMUNIZATIONS No Known Immunizations SOCIAL HISTORY Never Assessed REASON FOR VISIT Repository Medication PLAN OF CARE VITAL SIGNS MEDICATIONS Medication Instructions Dosage Frequency Start Date End Date Duration S tatus Atorvastatin Calcium 20 mg Orally Once a day 1 tablet 24h 14 , 2016 90 days Active RESULTS No Results PROCEDURES No Known procedures [...]
--- OUTSIDE RECORDS SUMMARY | 2019-08-08 15:49 | XMS REPORT ---
Author Author Loren RAMIREZ [facility] Address [address] [place] [address] Care Team Providers Care Humanities Professor Name Role Phone ASHLEYWILLIAMLAMONT Unavailable PROBLEMS Type Condition ICD9-CM Code HAX54-UH Code Onset Dates Condition S tatus SNOMED Code Problem Hyperlipidemia E78.5 Active 90349 004 Problem Depression F32.9 Active 52993044 Problem Allergic rhinitis J30.9 Active 61 886172 Problem Chronic obstructive pulmonary disease, unspecified COPD ty pe J44.9 Active 67114758 Problem Essential hypertension I10 Active 19714357 Problem Fibromyalgia M79.7 Active 8979154 05 Problem 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 Active 02583514 Problem Anxiety F41.9 Active 34034484 Problem GERD (gastroesophageal reflux disease) K21.9 Active 202288988 Problem 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 Active 727559458 Problem Tobacco use Z72.0 Active 15290367 8 ALLERGIES No Known Allergies ENCOUNTERS Encounter Location Date Diagnosis [place] [address] [place] [id number] [place] [address] Dec, Muscle ache M79.1 ; Hyperlip idemia E78.5 and Tick bite, sequela W57.XXXS [place] [id number] [place] [address] Dec, Essential hypertension I10 ; Ganglion cyst M67.40 ; Hyperlipidemia E78.5 ; Fibromyalgia M79.7 ; Muscle ache M79.1 and Tick bite, sequela W57.XXXS [place] [address] [place] [id number] [place] [address] Oct, [place] [address] [place] [id number] [place] [address] Jul, [place] [address] [address] Jul, Right groin pain R10.31 and Hoarseness R49.0 [place] [address] [address] Jun, [place] [address] [address] Jun, Chronic obstructive pulmonar y disease, unspecified COPD type J44.9 and Bronchitis J40 [place] [address] [address] Jun, Right groin pain R10.31 [place] [address] [address] Jun, Right groin pain R10.31 [place] [address] [address] Jun, Right groin pain R10.31 ; Ch ronic obstructive pulmonary disease, unspecified COPD type J44.9 ; 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 ; Anxiety F41.9 ; Depression F32.9 and 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 [place] [address] [address] Feb, [place] [address] [address] Jan, Hyperlipidemia 272.4 ; Adeno ma of right adrenal gland D35.01 and Hyperlipidemia E78.5 [place] [address] [address] Jan, [place] [address] [address] 15 Dec, 2016 Adenoma of right adrenal gla nd D35.01 ; Essential hypertension I10 ; Hyperlipidemia E78.5 ; Calculus of gallbladder without cholecystitis without obstruction K80.20 ; Tobacco use Z72.0 and BMI 33.0-33.9,adult Z68.33 [place] [address] [address] Nov, Essential hypertension I10 [place] [address] [address] Nov, At high risk for kidney inju ry Z91.89 [place] [address] [address] Nov, Right adrenal mass E27.9 and Calculus of gallbladder without cholecystitis without obstruction K80.20 [facility] [address] [address] Sep, Musculoskeletal pain of righ t lower extremity M79.604 [place] [address] [address] Oct, Chronic obstructive pulmonar y disease, unspecified COPD type J44.9 [place] [address] [address] Oct, Tobacco abuse Z72.0 [place] [address] [address] Sep, [facility] [address] [address] August, Bronchitis J40 [place] [address] [address] Apr, Depression F32.9 ; Essential hypertension I10 ; Hyperlipidemia E78.5 ; Abdominal bloating R14.0 ; Irregular menstruation N92.6 ; Hoarseness or changing voice R49.9 ; Wheezing R06.2 and Tobacco abuse Z72.0 [place] [address] [address] Nov, Major depressive disorder, r ecurrent episode, moderate 296.32 [place] [address] [address] Nov, Hypertension 401.9 and Tobac co abuse 305.1 [facility] [address] [id number] [address] [place] [address] Nov, [facility] [address] [id number] [address] [place] [address] Nov, [facility] [address] [id number] [address] [place] [address] Nov, Major depressive disorder, r ecurrent episode, moderate 296.32 [facility] [address] [id number] [address] [place] [address] Oct, [facility] [address] [id number] [address] [place] [address] Oct, Major depressive disorder, r ecurrent episode, moderate 296.32 [facility] [address] [id number] [address] [place] [address] Oct, [facility] [address] [facility] [id number] [address] [place] [address] Sep, Hyperlipidemia 272.4 ; Depre ssion 311 and Urinary incontinence 788.30 [facility] [address] [id number] [address] [place] [address] Jul, [facility] [address] [facility] [id number] [address] [place] [address] Jul, [facility] [address] [id number] [address] [place] [address] Jan, [facility] [address] [id number] [address] [place] [address] Jan, [facility] [address] [facility] [id number] [address] [place] [address] Jan, [facility] [address] [facility] [id number] [address] [place] [phone] Jan, [facility] [address] [facility] [id number] [address] [place] [address] Dec, [facility] [address] [id number] [address] [place] [address], [place] [address] 18 Dec, 2013 [facility] [address] [id number] [address] [place] [address], [place] [address] 17 Dec, 2013 [facility] [address] [id number] [address] [place] [address], [place] [address] 17 Dec, 2013 [facility] [address] [id number] [address] [place] [address], [place] [address] 16 Dec, 2013 [facility] [address] [id number] [address] [place] [address], [place] [address] 16 Dec, 2013 [facility] [address] [id number] [address] [place] [address], [place] [address] 14 Oct, 2013 [facility] [address] [id number] [address] [place] [address], [place] [address] 14 Oct, 2013 [facility] [address] [id number] [address] [place] [address], [place] [address] 20 Aug, 2013 [facility] [address] [id number] [address] [place] [address], [place] [address] August, [facility] [address] [id number] [address] [place] [address], [place] [address] August, [facility] [address] [id number] [address] [place] [address], [place] [address] August, [facility] [address] [id number] [address] [place] [address], [place] [address] 18 Jul, 2013 [facility] [address] [id number] [address] [place] [address], [place] [address] Jul, [facility] [address] [id number] [address] [place] [address], [place] [address] Jun, [facility] [address] [id number] [address] [place] [address], [place] [address] Jun, [facility] [address] [id number] [address] [place] [address], [place] [address] Mar, [facility] [address] [id number] [address] [place] [address], [place] [address] Mar, [facility] [address] [id number] [address] [place] [address], [place] [address] Jan, [facility] [address] [id number] [address] [place] [address], [place] [address] Oct, [facility] [address] [id number] [address] [place] [address], [place] [address] August, [facility] [address] [id number] [address] [place] [address], [place] [address] Jun, [facility] [address] [id number] [address] [place] [address], [place] [address] Apr, [facility] [address] [id number] [address] [place] [address], [place] [address] Mar, [facility] [address] [id number] [address] [place] [address], [place] [address] Mar, [facility] [address] [id number] [address] [place] [address], [place] [address] Mar, [facility] [address] [id number] [address] [place] [address], [place] [address] Mar, [facility] [address] [id number] [address] [place] [address], [place] [address] Nov, [facility] [address] [id number] [address] [place] [address], [place] [address] Nov, [facility] [address] [id number] [address] [place] [address], [place] [address] Mar, [facility] [address] [id number] [address] [place] [address], [place] [address] Mar, [facility] [address] [id number] [address] [place] [address], [place] [address] Oct, [facility] [address] [id number] [address] [place] [address] Oct, [facility] [address] [facility] [id number] [address] [place] [address] Sep, [facility] [address] [facility] [id number] [address] [place] [phone] Apr, [facility] [address] [facility] [id number] [address] [place] [address] Feb, [facility] [address] [facility] [id number] [address] [place] [address] Jan, [facility] [address] [facility] [id number] [address] [place] [address] Jan, IMMUNIZATIONS No Known Immunizations SOCIAL HISTORY Never Assessed REASON FOR VISIT Hypertension-Elsy, Pt has a bump on her left wrist that she would like loo ked at, Pt states she had a tick bite two years ago that is still causing her pa in and would like tested for Lymes Disease PLAN OF CARE Activity Details Follow Up 6 Weeks Reason:Lab results/p ain VITAL SIGNS Height 67 in 2018-01-07 Weight 215.6 lbs 2018-01-07 Temperature 97.7 degrees Fahrenheit 2018-01-07 Heart Rate 80 bpm 2018-01-07 Respiratory Rate 20 2018-01-07 BMI 33.76 kg/m2 2018-01-07 Blood pressure systolic 130 mmHg 2018-01-07 Blood pressure diastolic 88 mmHg 2018-01-07 MEDICATIONS Medication Instructions Dosage Frequency Start Date End Date Duration S tatus Atorvastatin Calcium 20 mg Orally Once a day 1 tablet 24h 14 2016 90 days Active Hydrochlorothiazide 25 MG Orally Once a day 1 capsule in the morning 2 4h 90 days Active ProAir HFA 108 (90 Base) MCG/ACT Inhalation every 4 hrs prn 2 puffs as needed August, 7 days Active Nasacort Allergy 24HR 55 MCG/ACT Nasally Once a day 1 puff in each nostril 24h Active RESULTS No Results PROCEDURES No Known procedures INSTRUCTIONS MEDICATIONS ADMINISTERED No Known Medications MEDICAL (GENERAL) HISTORY Type Description Date Medical History hyperlipidemia Medical History anxiety Medical History Allergies Medical History Calculus of gallbladder with out cholecystitis without obstruction Medical History Calculus of gallbladder with out cholecystitis without obstruction Surgical History heart cath [facility]'s- normal per record review 05/2009 Surgical History breast biopsy/benign mass removed 1 Surgical History section x 1 Surgical History bladder surgery 11/2014 Surgical History Gallbladder Removal 03/2017 Hospitalization History Surgery
--- OUTSIDE RECORDS SUMMARY | 2019-08-08 15:49 | XMS REPORT ---
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 Active 59342960 Problem 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 Active 012919688 Problem GERD (gastroesophageal reflux disease) K21.9 Active 510766385 Problem Depression F32.9 Active 54252395 Problem Tobacco use Z72.0 Active 11436512 8 Problem Anxiety F41.9 Active 56290009 ALLERGIES No Information ENCOUNTERS Encounter Location Date Diagnosis [place] [id number] [address] [place] [address] Oct, [place] [id number] [address] [place] [address] Jul, [facility] [address] [place] [address] Jul, Right groin pain R10.31 and Hoarseness R49.0 [facility] [address] [place] [id number] [address] [place] [address] Jun, [facility] [address] [place] [id number] [address] [place] [address] Jun, Chronic obstructive pulmonar y disease, unspecified COPD type J44.9 and Bronchitis J40 [place] [address] [place] [id number] [address] [place] [address] Jun, Right groin pain R10.[address] [address] Jun, Right groin pain R10.31 [place] [address] [address] Jun, Right groin pain R10.31 ; Ch ronic obstructive pulmonary disease, unspecified COPD type J44.9 ; 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 ; Anxiety F41.9 ; Depression F32.9 and 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 [address] Feb, [address] [address] Jan, Hyperlipidemia 272.4 ; Adeno ma of right adrenal gland D35.01 and Hyperlipidemia E78.[address] [address] Jan, [address] [address] Dec, Adenoma of right adrenal gla nd D35.01 ; Essential hypertension I10 ; Hyperlipidemia E78.5 ; Calculus of gallbladder without cholecystitis without obstruction K80.20 ; Tobacco use Z72.0 and BMI 33.0-33.9,adult Z68.[address] [address] Nov, Essential hypertension I10 [address] [address] Nov, At high risk for kidney inju ry Z91.[address] [address] Nov, Right adrenal mass E27.9 and Calculus of gallbladder without cholecystitis without obstruction K80.20 [facility] [address] [place] [id number] [address] [place] [address] Sep, Musculoskeletal pain of righ t lower extremity M79.604 [place] [address] [address] Oct, Chronic obstructive pulmonar y disease, unspecified COPD type J44.9 [place] [address] [address] Oct, Tobacco abuse Z72.0 [place] [address] [address] Sep, [facility] [address] [address] August, Bronchitis J40 [place] [address] [address] Apr, Depression F32.9 ; Essential hypertension I10 ; Hyperlipidemia E78.5 ; Abdominal bloating R14.0 ; Irregular menstruation N92.6 ; Hoarseness or changing voice R49.9 ; Wheezing R06.2 and Tobacco abuse Z72.0 [place] [address] [address] Nov, Major depressive disorder, r ecurrent episode, moderate 296.32 [place] [address] [address] Nov, Hypertension 401.9 and Tobac co abuse 305.1 [place] [address] [place] [id number] [address] [place] [address] Nov, [place] [address] [address] Nov, [place] [address] [address] Nov, Major depressive disorder, r ecurrent episode, moderate 296.32 [place] [address] [address] Oct, [facility] [address] [id number] [address] [place] [address] Oct, Major depressive disorder, r ecurrent episode, moderate 296.32 [facility] [address] [id number] [address] [place] [address] Oct, [facility] [address] [id number] [address] [place] [address] Sep, Hyperlipidemia 272.4 ; Depre ssion 311 and Urinary incontinence 788.30 [facility] [address] [id number] [address] [place] [address] Jul, [facility] [address] [id number] [address] [place] [address] Jul, [facility] [address] [id number] [address] [place] [id number] Jan, [facility] [address] [id number] [address] [place] [address] Jan, [facility] [address] [id number] [address] [place] [address] Jan, [facility] [address] [id number] [address] [place] [id number] Jan, [facility] [address] [id number] [address] [place] [id number] 18 Dec, 2013 [facility] [address] [id number] [address] [place] [id number] 18 Dec, 2013 [facility] [address] [id number] [address] [place] [id number] 17 Dec, 2013 [facility] [address] [id number] [address] [place] [address] 17 Dec, 2013 [facility] [address] [id number] [address] [place] [id number] 16 Dec, 2013 [facility] [address] [id number] [address] [place] [address], [place] [address] 16 Dec, 2013 [facility] [address] [id number] [address] [place] [address], [place] [address] Oct, [facility] [address] [id number] [address] [place] [address], [place] [address] Oct, [facility] [address] [id number] [address] [place] [address], [place] [address] August, [facility] [address] [id number] [address] [place] [address], [place] [address] August, [facility] [address] [id number] [address] [place] [address], [place] [address] August, [facility] [address] [id number] [address] [place] [address], [place] [address] August, [facility] [address] [id number] [address] [place] [address], [place] [address] Jul, [facility] [address] [id number] [address] [place] [address], [place] [address] Jul, [facility] [address] [id number] [address] [place] [address], [place] [address] Jun, [facility] [address] [id number] [address] [place] [address], [place] [address] Jun, [facility] [address] [id number] [address] [place] [address], [place] [address] Mar, [facility] [address] [id number] [address] [place] [address], [place] [address] Mar, [facility] [address] [id number] [address] [place] [address], [place] [address] Jan, [facility] [address] [id number] [address] [place] [address], [place] [address] Oct, [facility] [address] [id number] [address] [place] [address], [place] [address] August, [facility] [address] [id number] [address] [place] [address], [place] [address] Jun, [facility] [address] [id number] [address] [place] [address], [place] [address] Apr, [facility] [address] [id number] [address] [place] [address], [place] [address] Mar, [facility] [address] [id number] [address] [place] [address], [place] [address] Mar, [facility] [address] [id number] [address] [place] [address], [place] [address] Mar, [facility] [address] [id number] [address] [place] [address], [place] [address] Mar, [facility] [address] [id number] [address] [place] [address], [place] [address] Nov, [facility] [address] [id number] [address] [place] [address], [place] [address] Nov, [facility] [address] [id number] [address] [place] [address], [place] [address] Mar, [facility] [address] [id number] [address] [place] [address], [place] [address] Mar, [facility] [address] [id number] [address] [place] [address], [place] [address] Oct, [facility] [address] [id number] [address] [place] [address], [place] [address] Oct, [facility] [address] [id number] [address] [place] [address], [place] [address] Sep, [facility] [address] [id number] [address] [place] [address], [place] [address] Apr, [facility] [address] [id number] [address] [place] [address], [place] [address] Feb, [facility] [address] [id number] [address] [address] Jan, [facility] [address] [facility] [id number] [address] [address] Jan, IMMUNIZATIONS No Known Immunizations SOCIAL HISTORY Never Assessed REASON FOR VISIT Refil Request PLAN OF CARE VITAL SIGNS MEDICATIONS Unknown [...]
--- OUTSIDE RECORDS SUMMARY | 2019-08-08 15:49 | XMS REPORT ---
Author Author Lidia, Loren Doctor Organization [facility] Address Unknown Phone Unavailable Care Team Providers Care Chief Juvenile Probation Officer Name Role Phone Migration, Doctor Unavailable Unavailable PROBLEMS Type Condition ICD9-CM Code [id number] Code Onset Dates Condition S tatus SNOMED Code Problem Chronic obstructive pulmonary disease, unspecified COPD ty pe J44.9 Active 81754901 Problem Hyperlipidemia E78.5 Active 00911 004 Problem Essential hypertension I10 Active 22273905 Problem GERD (gastroesophageal reflux disease) K21.9 Active 407668120 Problem Anxiety F41.9 Active 16069110 Problem Tobacco use Z72.0 Active 96237546 8 Problem Lumbago with sciatica, right side M54.41 Active 384321799 Problem Depression F32.9 Active 96381325 Problem Other chronic pain G89.29 Active 8 2937239 Problem Allergic rhinitis J30.9 Active 61 575876 Problem 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 Active 533397363 Problem 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 Active 52901947 Problem Fibromyalgia M79.7 Active 7328567 05 Problem Lumbago with sciatica, left side M54.42 Active 176772336 ALLERGIES No Information ENCOUNTERS Encounter Location Date Diagnosis [place] [address] [place] [address] Jul, Lumbago with sciatica, right side M54.41 and Lumbago with sciatica, left side M54.42 [place] [address] [place] [id number] [address] [place] [address] Jul, Essential hypertension I10 ; Chronic obstructive pulmonary disease, unspecified COPD type J44.9 ; Lumbago with sciatica, right side M54.41 ; Lumbago with sciatica, left side M54.42 ; Other chronic pain G89.29 ; Tobacco abuse counseling Z71.6 ; 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 and Hyperlipidemia E78.5 [place] [address] [address] May, Hyperlipidemia E78.5 [facility] [address] [address] Feb, Acute bronchitis, unspecifie d organism J20.9 and Cough R05 [facility] [address] [address] Feb, [facility] [address] [address] Dec, Muscle ache M79.1 ; Hyperlip idemia E78.5 and Tick bite, sequela W57.XXXS [place] [address] [address] Dec, Essential hypertension I10 ; Ganglion cyst M67.40 ; Hyperlipidemia E78.5 ; Fibromyalgia M79.7 ; Muscle ache M79.1 and Tick bite, sequela W57.XXXS [facility] [address] [address] Oct, [place] [address] [address] Jul, [place] [address] [address] Jul, Right groin pain R10.31 and Hoarseness R49.0 [place] [address] [address] Jun, [place] [address] [address] Jun, Chronic obstructive pulmonar y disease, unspecified COPD type J44.9 and Bronchitis J40 [facility] [address] [address] Jun, Right groin pain R10.31 [place] [address] [address] Jun, Right groin pain R10.[address] [address] Jun, Right groin pain R10.31 ; Ch ronic obstructive pulmonary disease, unspecified COPD type J44.9 ; 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 ; Anxiety F41.9 ; Depression F32.9 and 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 [address] Feb, [address] [address] Jan, Hyperlipidemia 272.4 ; Adeno ma of right adrenal gland D35.01 and Hyperlipidemia E78.[address] [address] Jan, [address] [address] Dec, Adenoma of right adrenal gla nd D35.01 ; Essential hypertension I10 ; Hyperlipidemia E78.5 ; Calculus of gallbladder without cholecystitis without obstruction K80.20 ; Tobacco use Z72.0 and BMI 33.0-33.9,adult Z68.[address] [address] Nov, Essential hypertension I10 [address] [address] Nov, At high risk for kidney inju ry Z91.[address] [address] Nov, Right adrenal mass E27.9 and Calculus of gallbladder without cholecystitis without obstruction K80.20 [facility] [address] [place] [id number] [address] [place] [address] Sep, Musculoskeletal pain of righ t lower extremity M79.604 [place] [id number] [address] [place] [address] Oct, Chronic obstructive pulmonar y disease, unspecified COPD type J44.9 [facility] [address] [place] [id number] [address] [place] [address] Oct, Tobacco abuse Z72.0 [facility] [address] [place] [id number] [place] [address] Sep, [facility] [address] [address] August, Bronchitis J40 [place] [address] [address] Apr, Depression F32.9 ; Essential hypertension I10 ; Hyperlipidemia E78.5 ; Abdominal bloating R14.0 ; Irregular menstruation N92.6 ; Hoarseness or changing voice R49.9 ; Wheezing R06.2 and Tobacco abuse Z72.0 [place] [address] [address] Nov, Major depressive disorder, r ecurrent episode, moderate 296.32 [place] [address] [address] Nov, Hypertension 401.9 and Tobac co abuse 305.1 [place] [address] [address] Nov, [place] [address] [place] [id number] [place] [address] Nov, [facility] [address] [place] [id number] [address] [place] [address] Nov, Major depressive disorder, r ecurrent episode, moderate 296.32 [place] [address] [place] [id number] [place] [address] Oct, [facility] [address] [place] [id number] [address] [place] [address] Oct, Major depressive disorder, r ecurrent episode, moderate 296.32 [facility] [address] [id number] [address] [place] [address] 02 Oct, 2014 [facility] [address] [id number] [address] [place] [address] 04 Sep, 2014 Hyperlipidemia 272.4 ; Depre ssion 311 and Urinary incontinence 788.30 [facility] [address] [id number] [address] [place] [address] 14 Jul, 2014 [facility] [address] [id number] [address] [place] [address] Jul, [facility] [address] [id number] [address] [place] [address] Jan, [facility] [address] [id number] [address] [place] [address] Jan, [facility] [address] [id number] [address] [place] [address] Jan, [facility] [address] [id number] [address] [place] [address] 06 Jan, 2014 [facility] [address] [id number] [address] [place] [address] 18 Dec, 2013 [facility] [address] [id number] [address] [place] [address] 18 Dec, 2013 [facility] [address] [id number] [address] [place] [address] 17 Dec, 2013 [facility] [address] [id number] [address] [place] [address] 17 Dec, 2013 [facility] [address] [id number] [address] [place] [address] 16 Dec, 2013 [facility] [address] [id number] [address] [place] [address] 16 Dec, 2013 [facility] [address] [id number] [address] [place] [address] Oct, [facility] [address] [id number] [address] [place] [address], [place] [address] 14 Oct, 2013 [facility] [address] [id number] [address] [place] [address], [place] [address] August, [facility] [address] [id number] [address] [place] [address], [place] [address] August, [facility] [address] [id number] [address] [place] [address], [place] [address] August, [facility] [address] [id number] [address] [place] [address], [place] [address] August, [facility] [address] [id number] [address] [place] [address], [place] [address] Jul, [facility] [address] [id number] [address] [place] [address], [place] [address] Jul, [facility] [address] [id number] [address] [place] [address], [place] [address] Jun, [facility] [address] [id number] [address] [place] [address], [place] [address] Jun, [facility] [address] [id number] [address] [place] [address], [place] [address] Mar, [facility] [address] [id number] [address] [place] [address], [place] [address] Mar, [facility] [address] [id number] [address] [place] [address], [place] [address] Jan, [facility] [address] [id number] [address] [place] [address], [place] [address] Oct, [facility] [address] [id number] [address] [place] [address], [place] [address] August, [facility] [address] [id number] [address] [place] [address], [place] [address] Jun, [facility] [address] [id number] [address] [place] [address] Apr, [facility] [address] [id number] [address] [place] [address], [place] [address] Mar, [facility] [address] [id number] [address] [place] [address], [place] [address] Mar, [facility] [address] [id number] [address] [place] [address], [place] [address] Mar, [facility] [address] [id number] [address] [place] [address], [place] [address] Mar, [facility] [address] [id number] [address] [place] [address], [place] [address] Nov, [facility] [address] [id number] [address] [place] [address], [place] [address] Nov, [facility] [address] [id number] [address] [place] [id number] Mar, [facility] [address] [id number] [address] [place] [address] Mar, [facility] [address] [id number] [address] [place] [address] Oct, [facility] [address] [id number] [address] [place] [address] Oct, [facility] [address] [id number] [address] [place] [address] Sep, [facility] [address] [id number] [address] [place] [address] Apr, [facility] [address] [id number] [address] [place] [address] Feb, [facility] [address] [id number] [address] [place] [id number] Jan, [facility] [address] [id number] [address] [place] [address] Jan, IMMUNIZATIONS No Known Immunizations SOCIAL HISTORY Never Assessed REASON FOR VISIT PLAN OF CARE VITAL SIGNS MEDICATIONS Unknown Medications RESULTS No Results PROCEDURES Procedure Date Ordered Result Body Site LIPID PANEL Jan 05, 2014 VENIPUNCT, ROUTINE* Jan 05, 2014 INSTRUCTIONS MEDICATIONS ADMINISTERED No Known Medications MEDICAL [...]
--- OUTSIDE RECORDS SUMMARY | 2019-08-08 15:49 | XMS REPORT ---
Author Author Lidia, Loren Doctor Organization [facility] Address Unknown Phone Unavailable Care Team Providers Care Florist Helper Name Role Phone Migration, Doctor Unavailable Unavailable PROBLEMS Type Condition ICD9-CM Code WTZ10-SY Code Onset Dates Condition S tatus SNOMED Code Problem Chronic obstructive pulmonary disease, unspecified COPD ty pe J44.9 Active 34590200 Problem Hyperlipidemia E78.5 Active 07724 004 Problem Essential hypertension I10 Active 44139053 Problem GERD (gastroesophageal reflux disease) K21.9 Active 724695733 Problem Anxiety F41.9 Active 90935323 Problem Tobacco use Z72.0 Active 31188015 8 Problem Lumbago with sciatica, right side M54.41 Active 323196758 Problem Depression F32.9 Active 48714078 Problem Other chronic pain G89.29 Active 8 2664645 Problem Allergic rhinitis J30.9 Active 61 858843 Problem 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 Active 911391278 Problem 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 Active 70021745 Problem Fibromyalgia M79.7 Active 1244232 05 Problem Lumbago with sciatica, left side M54.42 Active 224194217 ALLERGIES No Information ENCOUNTERS Encounter Location Date Diagnosis [place] [address] [address] [place] [address] Jul, Lumbago with sciatica, right side M54.41 and Lumbago with sciatica, left side M54.42 [place] [address] [address] [place] [id number] [address] [place] [address] Jul, Essential hypertension I10 ; Chronic obstructive pulmonary disease, unspecified COPD type J44.9 ; Lumbago with sciatica, right side M54.41 ; Lumbago with sciatica, left side M54.42 ; Other chronic pain G89.29 ; Tobacco abuse counseling Z71.6 ; 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 and Hyperlipidemia E78.5 [place] [address] [address] May, Hyperlipidemia E78.5 [facility] [address] [address] Feb, Acute bronchitis, unspecifie d organism J20.9 and Cough R05 [facility] [address] [address] Feb, [facility] [address] [address] Dec, Muscle ache M79.1 ; Hyperlip idemia E78.5 and Tick bite, sequela W57.XXXS [place] [address] [address] Dec, Essential hypertension I10 ; Ganglion cyst M67.40 ; Hyperlipidemia E78.5 ; Fibromyalgia M79.7 ; Muscle ache M79.1 and Tick bite, sequela W57.XXXS [facility] [address] [address] Oct, [place] [address] [address] Jul, [place] [address] [address] Jul, Right groin pain R10.31 and Hoarseness R49.0 [place] [address] [address] Jun, [place] [address] [address] Jun, Chronic obstructive pulmonar y disease, unspecified COPD type J44.9 and Bronchitis J40 [facility] [address] [address] Jun, Right groin pain R10.31 [place] [address] [address] Jun, Right groin pain R10.[address] [address] Jun, Right groin pain R10.31 ; Ch ronic obstructive pulmonary disease, unspecified COPD type J44.9 ; 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 ; Anxiety F41.9 ; Depression F32.9 and 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 [address] Feb, [address] [address] Jan, Hyperlipidemia 272.4 ; Adeno ma of right adrenal gland D35.01 and Hyperlipidemia E78.[address] [address] Jan, [address] [address] Dec, Adenoma of right adrenal gla nd D35.01 ; Essential hypertension I10 ; Hyperlipidemia E78.5 ; Calculus of gallbladder without cholecystitis without obstruction K80.20 ; Tobacco use Z72.0 and BMI 33.0-33.9,adult Z68.[address] [address] Nov, Essential hypertension I10 [address] [address] Nov, At high risk for kidney inju ry Z91.[address] [address] Nov, Right adrenal mass E27.9 and Calculus of gallbladder without cholecystitis without obstruction K80.20 [facility] [address] [place] [id number] [address] [place] [address] Sep, Musculoskeletal pain of righ t lower extremity M79.604 [place] [id number] [address] [place] [address] Oct, Chronic obstructive pulmonar y disease, unspecified COPD type J44.9 [facility] [address] [place] [id number] [address] [place] [address] Oct, Tobacco abuse Z72.0 [facility] [address] [place] [id number] [address] [place] [address] Sep, [facility] [address] [address] August, Bronchitis J40 [place] [address] [address] Apr, Depression F32.9 ; Essential hypertension I10 ; Hyperlipidemia E78.5 ; Abdominal bloating R14.0 ; Irregular menstruation N92.6 ; Hoarseness or changing voice R49.9 ; Wheezing R06.2 and Tobacco abuse Z72.0 [place] [address] [address] Nov, Major depressive disorder, r ecurrent episode, moderate 296.32 [place] [address] [address] Nov, Hypertension 401.9 and Tobac co abuse 305.1 [place] [address] [address] Nov, [place] [address] [address] [place] [id number] [address] [place] [address] Nov, [facility] [address] [place] [id number] [address] [place] [address] Nov, Major depressive disorder, r ecurrent episode, moderate 296.32 [place] [address] [place] [id number] [address] [place] [address] Oct, [facility] [address] [place] [id number] [address] [place] [address] Oct, Major depressive disorder, r ecurrent episode, moderate 296.32 [facility] [address] [id number] [address] [place] [address] 02 Oct, 2014 [facility] [address] [id number] [address] [place] [address] 04 Sep, 2014 Hyperlipidemia 272.4 ; Depre ssion 311 and Urinary incontinence 788.30 [facility] [address] [id number] [address] [place] [address] 14 Jul, 2014 [facility] [address] [id number] [address] [place] [address] Jul, [facility] [address] [id number] [address] [place] [address] Jan, [facility] [address] [id number] [address] [place] [address] Jan, [facility] [address] [id number] [address] [place] [address] Jan, [facility] [address] [id number] [address] [place] [address] 06 Jan, 2014 [facility] [address] [id number] [address] [place] [address] 18 Dec, 2013 [facility] [address] [id number] [address] [place] [address] 18 Dec, 2013 [facility] [address] [id number] [address] [place] [address] 17 Dec, 2013 [facility] [address] [id number] [address] [place] [address] 17 Dec, 2013 [facility] [address] [id number] [address] [place] [address] 16 Dec, 2013 [facility] [address] [id number] [address] [place] [address] 16 Dec, 2013 [facility] [address] [id number] [address] [place] [address] Oct, [facility] [address] [id number] [address] [place] [address], [place] [address] 14 Oct, 2013 [facility] [address] [id number] [address] [place] [address], [place] [address] August, [facility] [address] [id number] [address] [place] [address], [place] [address] August, [facility] [address] [id number] [address] [place] [address], [place] [address] August, [facility] [address] [id number] [address] [place] [address], [place] [address] August, [facility] [address] [id number] [address] [place] [address], [place] [address] Jul, [facility] [address] [id number] [address] [place] [address], [place] [address] Jul, [facility] [address] [id number] [address] [place] [address], [place] [address] Jun, [facility] [address] [id number] [address] [place] [address], [place] [address] Jun, [facility] [address] [id number] [address] [place] [address], [place] [address] Mar, [facility] [address] [id number] [address] [place] [address], [place] [address] Mar, [facility] [address] [id number] [address] [place] [address], [place] [address] Jan, [facility] [address] [id number] [address] [place] [address], [place] [address] Oct, [facility] [address] [id number] [address] [place] [address], [place] [address] August, [facility] [address] [id number] [address] [place] [address], [place] [address] Jun, [facility] [address] [id number] [address] [place] [address] Apr, [facility] [address] [id number] [address] [place] [address], [place] [address] Mar, [facility] [address] [id number] [address] [place] [address], [place] [address] Mar, [facility] [address] [id number] [address] [place] [address], [place] [address] Mar, [facility] [address] [id number] [address] [place] [address], [place] [address] Mar, [facility] [address] [id number] [address] [place] [address], [place] [address] Nov, [facility] [address] [id number] [address] [place] [address], [place] [address] Nov, [facility] [address] [id number] [address] [place] [address] Mar, [facility] [address] [id number] [address] [place] [address] Mar, [facility] [address] [id number] [address] [place] [address] Oct, [facility] [address] [id number] [address] [place] [address] Oct, [facility] [address] [id number] [address] [place] [address] Sep, [facility] [address] [id number] [address] [place] [address] Apr, [facility] [address] [id number] [address] [place] [address] Feb, [facility] [address] [id number] [address] [place] [address] Jan, [facility] [address] [id number] [address] [place] [address] Jan, IMMUNIZATIONS No Known Immunizations SOCIAL HISTORY Never Assessed REASON FOR VISIT EMR-[facility] PLAN OF CARE VITAL SIGNS MEDICATIONS Unknown Medications RESULTS No Results PROCEDURES No Known procedures INSTRUCTIONS MEDICATIONS ADMINISTERED No Known Medications MEDICAL (GENERAL) HISTORY Type Description Date Medical History hyperlipidemia Medical History anxiety Medical History Allergies Medical History Calculus of gallbladder with out cholecystitis without obstruction Medical History Calculus of gallbladder with out cholecystitis without obstruction Surgical History heart cath [facility]- normal per record review 05/2009 Surgical History breast biopsy/benign mass removed 1 Surgical History section x 1 Surgical History bladder surgery 11/2014 Surgical History Gallbladder Removal 03/2017 Hospitalization History Surgery
--- OUTSIDE RECORDS SUMMARY | 2019-08-08 15:49 | XMS REPORT ---
Author Author Loren RAMIREZ Organization [facility] Address [address] [place] [address] Care Team Providers Care Ski Patrol Director Name Role Phone ASHLEYWILLIAMLAMONT Unavailable PROBLEMS Type Condition ICD9-CM Code THL54-FX Code Onset Dates Condition S tatus SNOMED Code Problem Hyperlipidemia E78.5 Active 70982 004 Problem Depression F32.9 Active 04238837 Problem Allergic rhinitis J30.9 Active 61 469838 Problem Chronic obstructive pulmonary disease, unspecified COPD ty pe J44.9 Active 48658850 Problem Essential hypertension I10 Active 33388799 Problem Fibromyalgia M79.7 Active 5888402 05 Problem 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 Active 56027961 Problem Anxiety F41.9 Active 52013063 Problem GERD (gastroesophageal reflux disease) K21.9 Active 223382833 Problem 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 Active 693938284 Problem Tobacco use Z72.0 Active 57774792 8 ALLERGIES No Information ENCOUNTERS Encounter Location Date Diagnosis [facility] [address] [place] [id number] [place] [address] Feb, Acute bronchitis, unspecifie d organism J20.9 and Cough R05 [facility] [address] [place] [id number] [address] [place] [address] Feb, [facility] [address] [place] [id number] [address] [place] [address] Dec, Muscle ache M79.1 ; Hyperlip idemia E78.5 and Tick bite, sequela W57.XXXS [facility] [address] [place] [id number] [place] [address] Dec, Essential hypertension I10 ; Ganglion cyst M67.40 ; Hyperlipidemia E78.5 ; Fibromyalgia M79.7 ; Muscle ache M79.1 and Tick bite, sequela W57.XXXS [facility] [address] [place] [id number] [address] [place] [address] Oct, [place] [address] [address] Jul, [place] [address] [address] Jul, Right groin pain R10.31 and Hoarseness R49.0 [place] [address] [address] Jun, [place] [address] [address] Jun, Chronic obstructive pulmonar y disease, unspecified COPD type J44.9 and Bronchitis J40 [place] [address] [address] Jun, Right groin pain R10.31 [place] [address] [place] [id number] [address] [place] [address] Jun, Right groin pain R10.31 [place] [address] [address] Jun, Right groin pain R10.31 ; Ch ronic obstructive pulmonary disease, unspecified COPD type J44.9 ; 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 ; Anxiety F41.9 ; Depression F32.9 and 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 [place] [id number] [place] [address] Feb, [place] [address] [address] Jan, Hyperlipidemia 272.4 ; Adeno ma of right adrenal gland D35.01 and Hyperlipidemia E78.5 [place] [address] [address] [place] [id number] [place] [address] Jan, [place] [address] [address] Dec, Adenoma of right adrenal gla nd D35.01 ; Essential hypertension I10 ; Hyperlipidemia E78.5 ; Calculus of gallbladder without cholecystitis without obstruction K80.20 ; Tobacco use Z72.0 and BMI 33.0-33.9,adult Z68.[address] [address] Nov, Essential hypertension I10 [place] [address] [address] Nov, At high risk for kidney inju ry Z91.[address] [address] Nov, Right adrenal mass E27.9 and Calculus of gallbladder without cholecystitis without obstruction K80.20 [facility] [place] [address] [address] Sep, Musculoskeletal pain of righ t lower extremity M79.604 [place] [address] [address] Oct, Chronic obstructive pulmonar y disease, unspecified COPD type J44.9 [place] [address] [address] Oct, Tobacco abuse Z72.0 [place] [address] [address] Sep, [facility] N [address] [address] August, Bronchitis J40 [place] [address] [address] 14 Apr, 2015 Depression F32.9 ; Essential hypertension I10 ; Hyperlipidemia E78.5 ; Abdominal bloating R14.0 ; Irregular menstruation N92.6 ; Hoarseness or changing voice R49.9 ; Wheezing R06.2 and Tobacco abuse Z72.0 [facility] [address] [facility] [id number] [address] [place] [address] Nov, Major depressive disorder, r ecurrent episode, moderate 296.32 [facility] [address] [facility] [id number] [address] [place] [address] Nov, Hypertension 401.9 and Tobac co abuse 305.1 [facility] [address] [facility] [id number] [address] [place] [address] Nov, [facility] [address] [facility] [id number] [address] [place] [address] Nov, [facility] [address] [facility] [id number] [address] [place] [address] Nov, Major depressive disorder, r ecurrent episode, moderate 296.32 [facility] [address] [facility] [id number] [address] [place] [address] Oct, [facility] [address] [facility] [id number] [address] [place] [address] Oct, Major depressive disorder, r ecurrent episode, moderate 296.32 [facility] [address] [facility] [id number] [address] [place] [address] Oct, [facility] [address] [facility] [id number] [address] [place] [address] Sep, Hyperlipidemia 272.4 ; Depre ssion 311 and Urinary incontinence 788.30 [facility] [address] [facility] [id number] [address] [place] [address] Jul, [facility] [address] [facility] [id number] [address] [place] [address] Jul, [facility] [address] [facility] [id number] [address] [place] [address] Jan, [facility] [address] [facility] [id number] [address] [place] [address] Jan, [facility] [address] [id number] [address] [place] [address], [place] [address] 06 Jan, 2014 [facility] [address] [id number] [address] [place] [address], [place] [address] 06 Jan, 2014 [facility] [address] [id number] [address] [place] [address], [place] [address] 18 Dec, 2013 [facility] [address] [id number] [address] [place] [address], [place] [address] 18 Dec, 2013 [facility] [address] [id number] [address] [place] [address], [place] [address] 17 Dec, 2013 [facility] [address] [id number] [address] [place] [address], [place] [address] 17 Dec, 2013 [facility] [address] [id number] [address] [place] [address], [place] [address] 16 Dec, 2013 [facility] [address] [id number] [address] [place] [address], [place] [address] 16 Dec, 2013 [facility] [address] [id number] [address] [place] [address], [place] [address] 14 Oct, 2013 [facility] [address] [id number] [address] [place] [address], [place] [address] 14 Oct, 2013 [facility] [address] [id number] [address] [place] [address], [place] [address] August, [facility] [address] [id number] [address] [place] [address], [place] [address] August, [facility] [address] [id number] [address] [place] [address], [place] [address] August, [facility] [address] [id number] [address] [place] [address], [place] [address] August, [facility] [address] [id number] [address] [place] [address], [place] [address] 18 Jul, 2013 [facility] [address] [id number] [address] [place] [address], [place] [address] Jul, [facility] [address] [id number] [address] [place] [address], [place] [address] Jun, [facility] [address] [id number] [address] [place] [address], [place] [address] Jun, [facility] [address] [id number] [address] [place] [address], [place] [address] Mar, [facility] [address] [id number] [address] [place] [address], [place] [address] Mar, [facility] [address] [id number] [address] [place] [address], [place] [address] Jan, [facility] [address] [id number] [address] [place] [address], [place] [address] Oct, [facility] [address] [id number] [address] [place] [address], [place] [address] August, [facility] [address] [id number] [address] [place] [address], [place] [address] Jun, [facility] [address] [id number] [address] [place] [address], [place] [address] Apr, [facility] [address] [id number] [address] [place] [address], [place] [address] Mar, [facility] [address] [id number] [address] [place] [address], [place] [address] Mar, [facility] [address] [id number] [address] [place] [address], [place] [address] Mar, [facility] [address] [id number] [address] [place] [address], [place] [address] Mar, [facility] [address] [id number] [address] [place] [address], [place] [id number] Nov, [facility] [address] [id number] [address] [place] [address], [place] [address] Nov, [facility] [address] [id number] [address] [address] Mar, [facility] [address] [id number] [address] [place] [phone] Mar, [facility] [address] [id number] [address] [place] [phone] Oct, [facility] [address] [facility] [id number] [address] [place] [phone] Oct, [facility] [address] [id number] [address] [place] [phone] Sep, [facility] [address] [id number] [address] [place] [phone] Apr, [facility] [address] [facility] [id number] [address] [place] [phone] Feb, [facility] [address] [facility] [id number] [address] [place] [phone] Jan, [facility] [address] [facility] [id number] [address] [place] [phone] Jan, IMMUNIZATIONS No Known Immunizations SOCIAL HISTORY Never Assessed REASON FOR VISIT Requests return call PLAN OF CARE VITAL SIGNS MEDICATIONS No [...]
--- OUTSIDE RECORDS SUMMARY | 2019-08-08 15:49 | XMS REPORT ---
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 Name Role Phone JOSH VIDAL Unavailable PROBLEMS Type Condition ICD9-CM Code SRD26-YL Code Onset Dates Condition S tatus SNOMED Code Problem Hyperlipidemia E78.5 Active 38465 004 Problem Depression F32.9 Active 29215201 Problem Allergic rhinitis J30.9 Active 61 961795 Problem Chronic obstructive pulmonary disease, unspecified COPD ty pe J44.9 Active 00615442 Problem Essential hypertension I10 Active 07417964 Problem Fibromyalgia M79.7 Active 9216277 05 Problem 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 Active 87571334 Problem Anxiety F41.9 Active 91033119 Problem GERD (gastroesophageal reflux disease) K21.9 Active 229783275 Problem 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 Active 571043232 Problem Tobacco use Z72.0 Active 48155152 8 ALLERGIES No Known Allergies ENCOUNTERS Encounter Location Date Diagnosis [facility] [address] [id number] [address] [place] [address] Feb, Acute bronchitis, unspecifie d organism J20.9 and Cough R05 [facility] [address] [id number] [address] [place] [address] Feb, [facility] [address] [address] 20 Dec, 2017 Muscle ache M79.1 ; Hyperlip idemia E78.5 and Tick bite, sequela W57.XXXS [facility] [address] [id number] [address] [place] [address] Dec, Essential hypertension I10 ; Ganglion cyst M67.40 ; Hyperlipidemia E78.5 ; Fibromyalgia M79.7 ; Muscle ache M79.1 and Tick bite, sequela W57.XXXS [facility] [address] [id number] [address] [place] [address] Oct, [place] [address] [place] [id number] [place] [address] Jul, [place] [address] [place] [id number] [place] [address] Jul, Right groin pain R10.31 and Hoarseness R49.0 [place] [address] [address] [id number] [place] [address] Jun, [place] [address] [address] Jun, Chronic obstructive pulmonar y disease, unspecified COPD type J44.9 and Bronchitis J40 [place] [address] [address] Jun, Right groin pain R10.31 [place] [address] [address] Jun, Right groin pain R10.31 [place] [address] [address] Jun, Right groin pain R10.31 ; Ch ronic obstructive pulmonary disease, unspecified COPD type J44.9 ; 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 ; Anxiety F41.9 ; Depression F32.9 and 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 [place] [address] [place] [address] Feb, [place] [address] [place] [id number] [place] [address] Jan, Hyperlipidemia 272.4 ; Adeno ma of right adrenal gland D35.01 and Hyperlipidemia E78.5 [place] [address] [place] [id number] [address] [place] [address] Jan, [place] [address] [address] Dec, Adenoma of right adrenal gla nd D35.01 ; Essential hypertension I10 ; Hyperlipidemia E78.5 ; Calculus of gallbladder without cholecystitis without obstruction K80.20 ; Tobacco use Z72.0 and BMI 33.0-33.9,adult Z68.[address] [address] Nov, Essential hypertension I10 [place] [address] [address] Nov, At high risk for kidney inju ry Z91.[address] [address] Nov, Right adrenal mass E27.9 and Calculus of gallbladder without cholecystitis without obstruction K80.20 [facility] [address] [address] Sep, Musculoskeletal pain of righ t lower extremity M79.[address] [address] Oct, Chronic obstructive pulmonar y disease, unspecified COPD type J44.9 [place] [address] [address] Oct, Tobacco abuse Z72.[address] [address] Sep, [facility] [address] [address] August, Bronchitis J40 [address] [address] Apr, Depression F32.9 ; Essential hypertension I10 ; Hyperlipidemia E78.5 ; Abdominal bloating R14.0 ; Irregular menstruation N92.6 ; Hoarseness or changing voice R49.9 ; Wheezing R06.2 and Tobacco abuse Z72.0 [facility] [address] [facility] [id number] [address] [place] [address] Nov, Major depressive disorder, r ecurrent episode, moderate 296.32 [facility] [address] [facility] [id number] [address] [place] [address] Nov, Hypertension 401.9 and Tobac co abuse 305.1 [facility] [id number] [place] [address] Nov, [facility] [address] [facility] [id number] [address] [place] [address] Nov, [facility] [id number] [place] [address] Nov, Major depressive disorder, r ecurrent episode, moderate 296.32 [facility] [address] [address] Oct, [facility] [id number] [place] [address] Oct, Major depressive disorder, r ecurrent episode, moderate 296.32 [facility] [id number] [place] [address] Oct, [facility] [id number] [place] [address] Sep, Hyperlipidemia 272.4 ; Depre ssion 311 and Urinary incontinence 788.30 [facility] [id number] [address] [place] [address] Jul, [facility] [address] [facility] [id number] [address] [place] [address] Jul, [facility] [address] [place] [id number] [address] [place] [address] Jan, [facility] [address] [id number] [address] [place] [address] Jan, [facility] [address] [id number] [address] [place] [address], [place] [address] 06 Jan, 2014 [facility] [address] [id number] [address] [place] [address], [place] [address] 06 Jan, 2014 [facility] [address] [id number] [address] [place] [address], [place] [address] 18 Dec, 2013 [facility] [address] [id number] [address] [place] [address], [place] [address] 18 Dec, 2013 [facility] [address] [id number] [address] [place] [address], [place] [address] 17 Dec, 2013 [facility] [address] [id number] [address] [place] [address], [place] [address] 17 Dec, 2013 [facility] [address] [id number] [address] [place] [address], [place] [address] 16 Dec, 2013 [facility] [address] [id number] [address] [place] [address], [place] [address] 16 Dec, 2013 [facility] [address] [id number] [address] [place] [address], [place] [address] 14 Oct, 2013 [facility] [address] [id number] [address] [place] [address], [place] [address] 14 Oct, 2013 [facility] [address] [id number] [address] [place] [address], [place] [address] 20 Aug, 2013 [facility] [address] [id number] [address] [place] [address], [place] [address] August, [facility] [address] [id number] [address] [place] [address], [place] [address] August, [facility] [address] [id number] [address] [place] [address], [place] [address] August, [facility] [address] [id number] [address] [place] [address], [place] [address] 18 Jul, 2013 [facility] [address] [id number] [address] [place] [address], [place] [address] Jul, [facility] [address] [id number] [address] [place] [address], [place] [address] Jun, [facility] [address] [id number] [address] [place] [address], [place] [address] Jun, [facility] [address] [id number] [address] [place] [address], [place] [address] Mar, [facility] [address] [id number] [address] [place] [address], [place] [address] Mar, [facility] [address] [id number] [address] [place] [address], [place] [address] Jan, [facility] [address] [id number] [address] [place] [address], [place] [address] Oct, [facility] [address] [id number] [address] [place] [address], [place] [address] August, [facility] [address] [id number] [address] [place] [address], [place] [address] Jun, [facility] [address] [id number] [address] [place] [address], [place] [address] Apr, [facility] [address] [id number] [address] [place] [address], [place] [address] Mar, [facility] [address] [id number] [address] [place] [address], [place] [address] Mar, [facility] [address] [id number] [address] [place] [address], [place] [address] Mar, [facility] [address] [id number] [address] [place] [address], [place] [address] Mar, [facility] [address] [id number] [address] [place] [address], [place] [address] Nov, [facility] [address] [id number] [address] [place] [address], [place] [address] Nov, [facility] [address] [id number] [address] [place] [address] Mar, [facility] [address] [id number] [address] [place] [address] Mar, [facility] [address] [id number] [address] [place] [address] Oct, [facility] [address] [id number] [address] [place] [address] Oct, [facility] [address] [id number] [address] [place] [address] Sep, [facility] [address] [id number] [address] [place] [address] Apr, [facility] [address] [id number] [address] [place] [address] Feb, [facility] [address] [id number] [address] [place] [address] Jan, [facility] [address] [id number] [address] [place] [address] Jan, IMMUNIZATIONS No Known Immunizations SOCIAL HISTORY Never Assessed REASON FOR VISIT Cough and chest congestion started 1 week ago Josephine PLAN OF CARE Activity Details Follow Up as needed or reg fu with pc p Reason: VITAL SIGNS Height 67 in 2018-03-18 Weight 222.0 lbs 2018-03-18 Temperature 97.9 degrees Fahrenheit 2018-03-18 Heart Rate 82 bpm 2018-03-18 Respiratory Rate 20 2018-03-18 BMI 34.77 kg/m2 2018-03-18 Blood pressure systolic 130 mmHg 2018-03-18 Blood pressure diastolic 84 mmHg 2018-03-18 MEDICATIONS Medication Instructions Dosage Frequency Start Date End Date Duration S tatus Tessalon Perles 100 mg Orally Three times a day 1 capsule as needed 8h Feb, 10 days Active Tussin Cough 15 MG/5ML Orally every 6 hrs 5 ml as needed 6h Active PredniSONE 20 mg Orally Once a day 1 tablet 24h Feb, 5 days Active Atorvastatin Calcium 20 mg Orally Once a day 1 tablet 24h 2016 90 days Active Hydrochlorothiazide 25 MG Orally Once a day 1 capsule in the morning 2 4h 90 days Active ProAir HFA 108 (90 Base) MCG/ACT Inhalation every 4 hrs prn 2 puffs as needed August, 7 days Active RESULTS No Results PROCEDURES No [...]
--- OUTSIDE RECORDS SUMMARY | 2019-08-08 15:49 | XMS REPORT ---
Author Author Lidia, Loren Doctor Organization [facility] Address Unknown Phone Unavailable Care Team Providers Care Restorative Art Embalmer Name Role Phone Migration, Doctor Unavailable Unavailable PROBLEMS Type Condition ICD9-CM Code JUT88-RG Code Onset Dates Condition S tatus SNOMED Code Problem Hyperlipidemia E78.5 Active 26339 004 Problem Allergic rhinitis J30.9 Active 61 269849 Problem Depression F32.9 Active 03938937 Problem 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 Active 26727731 Problem Essential hypertension I10 Active 41505060 Problem Fibromyalgia M79.7 Active 7612596 05 Problem Chronic obstructive pulmonary disease, unspecified COPD ty pe J44.9 Active 19461805 Problem GERD (gastroesophageal reflux disease) K21.9 Active 767718020 Problem Anxiety F41.9 Active 33133751 Problem Tobacco use Z72.0 Active 95185842 8 Problem 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 Active 732682127 ALLERGIES No Information ENCOUNTERS Encounter Location Date Diagnosis [facility] [address] [address] Jul, [facility] [address] [address] May, Hyperlipidemia E78.5 [facility] [address] [id number] [address] [place] [address] Feb, Acute bronchitis, unspecifie d organism J20.9 and Cough R05 [facility] [address] [id number] [address] [place] [address] Feb, [facility] [address] [address] Dec, Muscle ache M79.1 ; Hyperlip idemia E78.5 and Tick bite, sequela W57.XXXS [facility] [address] [address] Dec, Essential hypertension I10 ; Ganglion cyst M67.40 ; Hyperlipidemia E78.5 ; Fibromyalgia M79.7 ; Muscle ache M79.1 and Tick bite, sequela W57.XXXS [place] [address] [address] Oct, [place] [address] [address] Jul, [place] [address] [address] Jul, Right groin pain R10.31 and Hoarseness R49.0 [place] [address] [address] Jun, [place] [address] [address] Jun, Chronic obstructive pulmonar y disease, unspecified COPD type J44.9 and Bronchitis J40 [place] [address] [address] Jun, Right groin pain R10.31 [place] [address] [address] Jun, Right groin pain R10.31 [place] [address] [address] Jun, Right groin pain R10.31 ; Ch ronic obstructive pulmonary disease, unspecified COPD type J44.9 ; 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 ; Anxiety F41.9 ; Depression F32.9 and 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 [place] [address] [address] Feb, [place] [address] [address] Jan, Hyperlipidemia 272.4 ; Adeno ma of right adrenal gland D35.01 and Hyperlipidemia E78.5 [place] [address] [id number] [address] [place] [address] Jan, [place] [address] [address] 15 Dec, 2016 Adenoma of right adrenal gla nd D35.01 ; Essential hypertension I10 ; Hyperlipidemia E78.5 ; Calculus of gallbladder without cholecystitis without obstruction K80.20 ; Tobacco use Z72.0 and BMI 33.0-33.9,adult Z68.[address] [address] Nov, Essential hypertension I10 [address] [address] Nov, At high risk for kidney inju ry Z91.[address] [address] Nov, Right adrenal mass E27.9 and Calculus of gallbladder without cholecystitis without obstruction K80.20 [facility] [place] [facility] [address] [address] Sep, Musculoskeletal pain of righ t lower extremity M79.604 [place] [address] [id number] [address] [place] [address] Oct, Chronic obstructive pulmonar y disease, unspecified COPD type J44.9 [address] [place] [address] Oct, Tobacco abuse Z72.0 [place] [address] [address] Sep, [facility] [place] [facility] [address] [id number] [address] [place] [address] August, Bronchitis J40 [place] [address] [address] Apr, Depression F32.9 ; Essential hypertension I10 ; Hyperlipidemia E78.5 ; Abdominal bloating R14.0 ; Irregular menstruation N92.6 ; Hoarseness or changing voice R49.9 ; Wheezing R06.2 and Tobacco abuse Z72.0 [facility] [address] [address] Nov, Major depressive disorder, r ecurrent episode, moderate 296.32 [place] [address] [address] Nov, Hypertension 401.9 and Tobac co abuse 305.1 [place] [address] [address] Nov, [place] [address] [address] Nov, [place] [address] [address] Nov, Major depressive disorder, r ecurrent episode, moderate 296.32 [place] [address] [address] Oct, [place] [address] [address] Oct, Major depressive disorder, r ecurrent episode, moderate 296.32 [place] [address] [address] Oct, [place] [address] [address] Sep, Hyperlipidemia 272.4 ; Depre ssion 311 and Urinary incontinence 788.30 [place] [address] [address] Jul, [facility] [address] [address] Jul, [place] [address] [address] Jan, [facility] [address] [id number] [address] [place] [address], [place] [address] 2014 [facility] [address] [id number] [address] [place] [address], [place] [address] 06 Jan, 2014 [facility] [address] [id number] [address] [place] [address], [place] [address] 06 Jan, 2014 [facility] [address] [id number] [address] [place] [address], [place] [address] 18 Dec, 2013 [facility] [address] [id number] [address] [place] [address], [place] [address] 18 Dec, 2013 [facility] [address] [id number] [address] [place] [address], [place] [address] 17 Dec, 2013 [facility] [address] [id number] [address] [place] [address], [place] [address] 17 Dec, 2013 [facility] [address] [id number] [address] [place] [address], [place] [address] 16 Dec, 2013 [facility] [address] [id number] [address] [place] [address], [place] [address] 16 Dec, 2013 [facility] [address] [id number] [address] [place] [address], [place] [address] 14 Oct, [address] [facility] [address] [id number] [address] [place] [address], [place] [address] 14 Oct, 2013 [facility] [address] [id number] [address] [place] [address], [place] [address] August, [facility] [address] [id number] [address] [place] [address], [place] [address] August, [facility] [address] [id number] [address] [place] [address], [place] [address] August, [facility] [address] [id number] [address] [place] [address], [place] [address] August, [facility] [address] [id number] [address] [place] [address], [place] [address] Jul, [facility] [address] [id number] [address] [place] [address], [place] [address] Jul, [facility] [address] [id number] [address] [place] [address], [place] [address] Jun, [facility] [address] [id number] [address] [place] [address], [place] [address] Jun, [facility] [address] [id number] [address] [place] [address], [place] [address] Mar, [facility] [address] [id number] [address] [place] [address], [place] [address] Mar, [facility] [address] [id number] [address] [place] [address], [place] [address] Jan, [facility] [address] [id number] [address] [place] [address], [place] [address] Oct, [facility] [address] [id number] [address] [place] [address], [place] [address] August, [facility] [address] [id number] [address] [place] [address], [place] [address] Jun, [facility] [address] [id number] [address] [place] [address], [place] [address] Apr, [facility] [address] [id number] [address] [place] [address], [place] [address] Mar, [facility] [address] [id number] [address] [place] [address], [place] [address] Mar, [facility] [address] [id number] [address] [place] [address], [place] [address] Mar, [facility] [address] [id number] [address] [place] [address], [place] [address] Mar, [facility] [address] [id number] [address] [place] [address], [place] [address] Nov, [facility] [address] [id number] [address] [place] [address] Nov, [facility] [address] [id number] [address] [place] [address] Mar, [facility] [address] [id number] [address] [place] [address] Mar, [facility] [address] [id number] [address] [place] [address] Oct, [facility] [address] [id number] [address] [place] [address] Oct, [facility] [address] [id number] [address] [place] [phone] Sep, [facility] [address] [id number] [address] [place] [id number] Apr, [facility] [address] [id number] [address] [place] [phone] Feb, [facility] [address] [id number] [address] [place] [phone] Jan, [facility] [address] [id number] [address] [place] [phone] Jan, IMMUNIZATIONS No Known Immunizations SOCIAL HISTORY Never Assessed REASON FOR VISIT [facility] PLAN OF CARE VITAL SIGNS MEDICATIONS Medication Instructions Dosage Frequency Start Date End Date Duration S tatus Detrol LA 4 mg 1 capsule by Oral route 1 time per day Jun, Active Effexor XR 150 mg 1 capsule by Oral route 1 time per day Dec, Active HydrOXYzine HCl 25 mg take 0.5-1 tablet by Oral route 3 times per day Dec, Active Lovastatin 40 mg 1 tablet by Oral route 1 time per day 1 Dec, Active Mobic 7.5 mg take 1 Tablet by Oral route 1 time per day August, Active Flexeril 10 mg take 1 tablet (10 mg ) by oral route 3 times per day PRN take prn muscle spasm Dec, Active RESULTS No Results PROCEDURES No Known procedures INSTRUCTIONS MEDICATIONS ADMINISTERED No Known Medications MEDICAL (GENERAL) HISTORY Type Description Date Medical History hyperlipidemia Medical History anxiety Medical History Allergies Medical History Calculus of gallbladder with out cholecystitis without obstruction Medical History Calculus of gallbladder with out cholecystitis without obstruction Surgical History heart cath [facility]'s- normal per record review 05/2009 Surgical History breast biopsy/benign mass removed 1 Surgical History section x 1 Surgical History bladder surgery 11/2014 Surgical History Gallbladder Removal 03/2017 Hospitalization History Surgery
--- OUTSIDE RECORDS SUMMARY | 2019-08-08 15:50 | XMS REPORT ---
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 [address] [address] Jun, Chronic obstructive pulmonar y disease, unspecified COPD type J44.9 and Bronchitis J40 [place] [address] [place] [id number] [place] [address] Jun, Right groin pain R10.31 [facility] [address] [place] [id number] [address] [place] [address] Jun, Right groin pain R10.[address] [address] Jun, 2018 Right groin pain R10.31 ; Ch ronic obstructive pulmonary disease, unspecified COPD type J44.9 ; 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 ; Anxiety F41.9 ; Depression F32.9 and 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 [address] Feb, [address] [address] Jan, Hyperlipidemia 272.4 ; Adeno ma of right adrenal gland D35.01 and Hyperlipidemia E78.[address] [address] Jan, [address] [address] Dec, Adenoma of right adrenal gla nd D35.01 ; Essential hypertension I10 ; Hyperlipidemia E78.5 ; Calculus of gallbladder without cholecystitis without obstruction K80.20 ; Tobacco use Z72.0 and BMI 33.0-33.9,adult Z68.[address] [address] Nov, Essential hypertension I10 [address] [address] Nov, At high risk for kidney inju ry Z91.[address] [address] Nov, Right adrenal mass E27.9 and Calculus of gallbladder without cholecystitis without obstruction K80.20 [facility] [address] [place] [address] Sep, Musculoskeletal pain of righ t lower extremity M79.[address] [address] Oct, Chronic obstructive pulmonar y disease, unspecified COPD type J44.9 [facility] [address] [place] [id number] [place] [address] Oct, Tobacco abuse Z72.0 [facility] [address] [place] [id number] [place] [address] Sep, [facility] [address] [address] August, Bronchitis J40 [facility] [address] [address] Apr, Depression F32.9 ; Essential hypertension I10 ; Hyperlipidemia E78.5 ; Abdominal bloating R14.0 ; Irregular menstruation N92.6 ; Hoarseness or changing voice R49.9 ; Wheezing R06.2 and Tobacco abuse Z72.0 [facility] [address] [address] Nov, Major depressive disorder, r ecurrent episode, moderate 296.32 [facility] [address] [address] Nov, Hypertension 401.9 and Tobac co abuse 305.1 [facility] [address] [place] [id number] [place] [address] Nov, [place] [address] [place] [id number] [place] [address] Nov, [facility] [address] [place] [id number] [place] [address] Nov, Major depressive disorder, r ecurrent episode, moderate 296.32 [place] [address] [place] [id number] [place] [address] Oct, [facility] [address] [place] [id number] [place] [address] Oct, Major depressive disorder, r ecurrent episode, moderate 296.32 [facility] [address] [id number] [address] [place] [address] 02 Oct, 2014 [facility] [address] [id number] [address] [place] [address] 04 Sep, 2014 Hyperlipidemia 272.4 ; Depre ssion 311 and Urinary incontinence 788.30 [facility] [address] [id number] [address] [place] [address], [place] [address] 14 Jul, 2014 [facility] [address] [id number] [address] [place] [address] Jul, [facility] [address] [id number] [address] [place] [address], [place] [address] Jan, [facility] [address] [id number] [address] [place] [address] Jan, [facility] [address] [id number] [address] [place] [address] Jan, [facility] [address] [id number] [address] [place] [address] Jan, [facility] [address] [id number] [address] [place] [address] 18 Dec, 2013 [facility] [address] [id number] [address] [place] [address] 18 Dec, 2013 [facility] [address] [id number] [address] [place] [address] 17 Dec, 2013 [facility] [address] [id number] [address] [place] [address] 17 Dec, 2013 [facility] [address] [id number] [address] [place] [id number] 16 Dec, 2013 [facility] [address] [id number] [address] [place] [address] 16 Dec, 2013 [facility] [address] [id number] [address] [place] [address] 14 Oct, 2013 [facility] [address] [id number] [address] [place] [address], [place] [address] Oct, [facility] [address] [id number] [address] [place] [address], [place] [address] August, [facility] [address] [id number] [address] [place] [address], [place] [address] August, [facility] [address] [id number] [address] [place] [address], [place] [address] August, [facility] [address] [id number] [address] [place] [address], [place] [address] August, [facility] [address] [id number] [address] [place] [address], [place] [address] Jul, [facility] [address] [id number] [address] [place] [address], [place] [address] Jul, [facility] [address] [id number] [address] [place] [address], [place] [address] Jun, [facility] [address] [id number] [address] [place] [address], [place] [address] Jun, [facility] [address] [id number] [address] [place] [address], [place] [address] Mar, [facility] [address] [id number] [address] [place] [address], [place] [address] Mar, [facility] [address] [id number] [address] [place] [address], [place] [address] Jan, [facility] [address] [id number] [address] [place] [address], [place] [address] Oct, [facility] [address] [id number] [address] [place] [address], [place] [address] August, [facility] [address] [id number] [address] [place] [address], [place] [address] Jun, [facility] [address] [id number] [address] [place] [address], [place] [address] Apr, [facility] [address] [id number] [address] [place] [address], [place] [address] Mar, [facility] [address] [id number] [address] [place] [address], [place] [address] Mar, [facility] [address] [id number] [address] [place] [address], [place] [address] Mar, [facility] [address] [id number] [address] [place] [address], [place] [address] Mar, [facility] [address] [id number] [address] [place] [address], [place] [address] Nov, [facility] [address] [id number] [address] [place] [address], [place] [address] Nov, [facility] [address] [id number] [address] [place] [address], [place] [address] Mar, [facility] [address] [id number] [address] [place] [address] Mar, [facility] [address] [id number] [address] [place] [address], [place] [address] Oct, [facility] [address] [id number] [address] [place] [address] Oct, [facility] [address] [id number] [address] [place] [address] Sep, [facility] [address] [id number] [address] [place] [address] Apr, [facility] [address] [id number] [address] [place] [address] Feb, [facility] [address] [id number] [address] [place] [address] Jan, [facility] [address] [id number] [address] [place] [address] Jan, IMMUNIZATIONS No Known Immunizations SOCIAL HISTORY Never Assessed REASON FOR VISIT Blood pressure check---DBennettRN PLAN OF CARE VITAL SIGNS Height 67 in 2016-12-13 Blood pressure systolic 152 mmHg 2016-12-13 Blood pressure diastolic 96 mmHg 2016-12-13 MEDICATIONS Medication Instructions Dosage Frequency Start Date End Date Duration S melissaus Omeprazole 20 MG Orally Once a day 1 capsule 24h 30 Active ProAir HFA 108 (90 Base) MCG/ACT Inhalation every 4 hrs prn 2 puffs as needed August, 07 days Active Hydrochlorothiazide 25 MG Orally Once a day 1 tablet 24h 20 Nov, 90 days Active Lovastatin 40 mg 1 tablet by Oral route 1 time per day 1 Dec, Active Combivent Respimat 20-100 MCG/ACT Inhalation Four times a day 1 puf f 6h Oct, Active RESULTS No Results PROCEDURES No Known [...]
--- OUTSIDE RECORDS SUMMARY | 2019-08-08 15:50 | XMS REPORT ---
Author Author Loren RAMIREZ [facility] Address [address] [place] [address] Care Team Providers Care Reflesher Name Role Phone LAMONT RAMIREZ Unavailable PROBLEMS Type Condition ICD9-CM Code GRY18-GO Code Onset Dates Condition S tatus SNOMED Code Problem Essential hypertension I10 Active 01789703 Problem Allergic rhinitis J30.9 Active 61 520531 Problem Hyperlipidemia E78.5 Active 50281 004 Problem Chronic obstructive pulmonary disease, unspecified COPD ty pe J44.9 Active 82455975 Problem 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 Active 61542216 Problem 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 Active 187464275 Problem GERD (gastroesophageal reflux disease) K21.9 Active 848609824 Problem Depression F32.9 Active 34816832 Problem Tobacco use Z72.0 Active 21784524 8 Problem Anxiety F41.9 Active 33050466 ALLERGIES No Information ENCOUNTERS Encounter Location Date Diagnosis [id number] [id number] [place] [address] Jul, [place] [address] [address] Jul, Right groin pain R10.31 and Hoarseness R49.0 [facility] [place] [address] [place] [id number] [address] [place] [address] Jun, [facility] [place] [address] [address] Jun, Chronic obstructive pulmonar y disease, unspecified COPD type J44.9 and Bronchitis J40 [facility] [place] [address] [place] [id number] [address] [place] [address] Jun, Right groin pain R10.31 [facility] [address] [address] Jun, Right groin pain R10.[address] [address] Jun, Right groin pain R10.31 ; Ch ronic obstructive pulmonary disease, unspecified COPD type J44.9 ; 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 ; Anxiety F41.9 ; Depression F32.9 and 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 [address] Feb, [address] [address] Jan, Hyperlipidemia 272.4 ; [place] of right adrenal gland D35.01 and Hyperlipidemia E78.[address] [address] Jan, [address] [address] Dec, Adenoma of right adrenal gla nd D35.01 ; Essential hypertension I10 ; Hyperlipidemia E78.5 ; Calculus of gallbladder without cholecystitis without obstruction K80.20 ; Tobacco use Z72.0 and BMI 33.0-33.9,adult Z68.[address] [address] Nov, Essential hypertension I10 [address] [address] Nov, At high risk for kidney inju ry Z91.[address] [address] Nov, Right adrenal mass E27.9 and Calculus of gallbladder without cholecystitis without obstruction K80.20 [facility] [address] [address] Sep, Musculoskeletal pain of righ t lower extremity M79.604 [facility] [place] [address] [facility] [id number] [address] [place] [address] Oct, Chronic obstructive pulmonar y disease, unspecified COPD type J44.9 [facility] [place] [address] [facility] [id number] [address] [place] [address] Oct, Tobacco abuse Z72.0 [facility] [place] [address] [place] [id number] [address] [place] [address] Sep, [facility] [address] [facility] [id number] [address] [place] [address] August, Bronchitis J40 [facility] [place] [address] [address] Apr, Depression F32.9 ; Essential hypertension I10 ; Hyperlipidemia E78.5 ; Abdominal bloating R14.0 ; Irregular menstruation N92.6 ; Hoarseness or changing voice R49.9 ; Wheezing R06.2 and Tobacco abuse Z72.0 [place] [address] [id number] [place] [address] Nov, Major depressive disorder, r ecurrent episode, moderate 296.32 [place] [address] [place] [id number] [place] [address] Nov, Hypertension 401.9 and Tobac co abuse 305.1 [place] [address] [place] [id number] [place] [address] Nov, [facility] [place] [address] [place] [id number] [place] [address] Nov, [place] [address] [place] [id number] [place] [address] Nov, Major depressive disorder, r ecurrent episode, moderate 296.32 [facility] [place] [address] [place] [id number] [address] [place] [address] Oct, [facility] [place] [address] [place] [id number] [address] [place] [address] Oct, Major depressive disorder, r ecurrent episode, moderate 296.32 [facility] [place] [address] [id number] [address] [place] [address] Oct, [facility] [address] [id number] [address] [place] [address] Sep, Hyperlipidemia 272.4 ; Depre ssion 311 and Urinary incontinence 788.30 [facility] [place] [address] [id number] [address] [place] [address] Jul, [facility] [address] [id number] [address] [place] [address] Jul, [facility] [address] [id number] [address] [place] [address] Jan, [facility] [address] [id number] [address] [place] [address] Jan, [facility] [address] [id number] [address] [place] [address] Jan, [facility] [place] [address] [id number] [address] [place] [address] Jan, [facility] [address] [id number] [address] [place] [address] 18 Dec, 2013 [facility] [address] [id number] [address] [place] [address] 18 Dec, 2013 [facility] [address] [id number] [address] [place] [address] 17 Dec, 2013 [facility] [address] [id number] [address] [place] [address] 17 Dec, 2013 [facility] [address] [id number] [address] [place] [address] 16 Dec, 2013 [facility] [address] [id number] [address] [place] [address] 16 Dec, 2013 [facility] [address] [id number] [address] [place] [address], [place] [address] Oct, [facility] [address] [id number] [address] [place] [address], [place] [address] Oct, [facility] [address] [id number] [address] [place] [address], [place] [address] August, [facility] [address] [id number] [address] [place] [address], [place] [address] August, [facility] [address] [id number] [address] [place] [address], [place] [address] August, [facility] [address] [id number] [address] [place] [address], [place] [address] August, [facility] [address] [id number] [address] [place] [address], [place] [address] Jul, [facility] [address] [id number] [address] [place] [address], [place] [address] Jul, [facility] [address] [id number] [address] [place] [address], [place] [address] Jun, [facility] [address] [id number] [address] [place] [address], [place] [address] Jun, [facility] [address] [id number] [address] [place] [address], [place] [address] Mar, [facility] [address] [id number] [address] [place] [address], [place] [address] Mar, [facility] [address] [id number] [address] [place] [address], [place] [address] Jan, [facility] [address] [id number] [address] [place] [address], [place] [address] Oct, [facility] [address] [id number] [address] [place] [address], [place] [address] August, [facility] [address] [id number] [address] [place] [address], [place] [address] Jun, [facility] [address] [id number] [address] [place] [address], [place] [address] Apr, [facility] [address] [id number] [address] [place] [address], [place] [address] Mar, [facility] [address] [id number] [address] [place] [address], [place] [address] Mar, [facility] [address] [id number] [address] [place] [address], [place] [address] Mar, [facility] [address] [id number] [address] [place] [address], [place] [address] Mar, [facility] [address] [id number] [address] [place] [address], [place] [address] Nov, [facility] [address] [id number] [address] [place] [address], [place] [address] Nov, [facility] [address] [id number] [address] [place] [address], [place] [address] Mar, [facility] [address] [id number] [address] [place] [address], [place] [address] Mar, [facility] [address] [id number] [address] [place] [address], [place] [address] Oct, [facility] [address] [id number] [address] [place] [address], [place] [address] Oct, [facility] [address] [id number] [address] [place] [address], [place] [address] Sep, [facility] [address] [id number] [address] [place] [address], [place] [address] Apr, [facility] [address] [id number] [address] [place] [address], [place] [address] Feb, [facility] [address] [id number] [address] [place] [address], [place] [address] 28 Jan, 2010 [facility] [address] [id number] [address] [place] [address], [place] [address] Jan, IMMUNIZATIONS No Known Immunizations SOCIAL HISTORY Never Assessed REASON FOR VISIT Medication question PLAN OF CARE VITAL SIGNS MEDICATIONS Medication Instructions Dosage Frequency Start Date End Date Duration S tatus Meloxicam 7.5 MG Orally Once a day 1 tablet as needed 24h 28 M [id number], 30 day(s) Active RESULTS No Results PROCEDURES No Known procedures INSTRUCTIONS MEDICATIONS ADMINISTERED No Known Medications MEDICAL (GENERAL) HISTORY Type Description Date Medical History hyperlipidemia Medical History anxiety Medical History Allergies Medical History Calculus of gallbladder with out cholecystitis without obstruction Medical History Calculus of gallbladder with out cholecystitis without obstruction Surgical History heart cath [facility]- normal per record review 05/2009 Surgical History breast biopsy/benign mass removed 1 Surgical History section x 1 Surgical History bladder surgery 11/2014 Surgical History Gallbladder Removal 03/2017 Hospitalization History Surgery
--- OUTSIDE RECORDS SUMMARY | 2019-08-08 15:50 | XMS REPORT ---
Author Author Loren RAMIREZ [facility] Address [address] [place] [address] Care Team Providers Care Toe Former Stitchdowns Name Role Phone LAMONT RAMIREZ Unavailable PROBLEMS Type Condition ICD9-CM Code HLW03-CT Code Onset Dates Condition S tatus SNOMED Code Problem Essential hypertension I10 Active 13770319 Problem Allergic rhinitis J30.9 Active 61 401503 Problem Hyperlipidemia E78.5 Active 24558 004 Problem Chronic obstructive pulmonary disease, unspecified COPD ty pe J44.9 Active 30115565 Problem 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 Active 89645385 Problem 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 Active 948249766 Problem GERD (gastroesophageal reflux disease) K21.9 Active 526447948 Problem Depression F32.9 Active 49938928 Problem Tobacco use Z72.0 Active 90504613 8 Problem Anxiety F41.9 Active 77056336 ALLERGIES No Information ENCOUNTERS Encounter Location Date Diagnosis [place] [id number] [address] [place] [address] Jul, [place] [address] [address] Jul, Right groin pain R10.31 and Hoarseness R49.0 [facility] [address] [place] [id number] [address] [place] [address] Jun, [facility] [address] [address] Jun, Chronic obstructive pulmonar y disease, unspecified COPD type J44.9 and Bronchitis J40 [facility] [address] [place] [id number] [address] [place] [address] Jun, Right groin pain R10.31 [facility] [address] [address] Jun, Right groin pain R10.[address] [address] Jun, Right groin pain R10.31 ; Ch ronic obstructive pulmonary disease, unspecified COPD type J44.9 ; 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 ; Anxiety F41.9 ; Depression F32.9 and 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 [address] Feb, [address] [address] Jan, Hyperlipidemia 272.4 ; Adeno ma of right adrenal gland D35.01 and Hyperlipidemia E78.[address] [address] Jan, [address] [address] Dec, Adenoma of right adrenal gla nd D35.01 ; Essential hypertension I10 ; Hyperlipidemia E78.5 ; Calculus of gallbladder without cholecystitis without obstruction K80.20 ; Tobacco use Z72.0 and BMI 33.0-33.9,adult Z68.[address] [address] Nov, Essential hypertension I10 [address] [address] Nov, At high risk for kidney inju ry Z91.[address] [address] Nov, Right adrenal mass E27.9 and Calculus of gallbladder without cholecystitis without obstruction K80.20 [facility] [address] [address] Sep, Musculoskeletal pain of righ t lower extremity M79.604 [facility] [address] [facility] [id number] [address] [place] [address] Oct, Chronic obstructive pulmonar y disease, unspecified COPD type J44.9 [facility] [address] [facility] [id number] [address] [place] [address] Oct, Tobacco abuse Z72.0 [facility] [address] [place] [id number] [address] [place] [address] Sep, [facility] [address] [facility] [id number] [address] [place] [address] August, Bronchitis J40 [facility] [address] [address] Apr, Depression F32.9 ; Essential hypertension I10 ; Hyperlipidemia E78.5 ; Abdominal bloating R14.0 ; Irregular menstruation N92.6 ; Hoarseness or changing voice R49.9 ; Wheezing R06.2 and Tobacco abuse Z72.0 [place] [address] [place] [id number] [place] [address] Nov, Major depressive disorder, r ecurrent episode, moderate 296.32 [place] [address] [place] [id number] [place] [address] Nov, Hypertension 401.9 and Tobac co abuse 305.1 [place] [address] [place] [id number] [place] [address] Nov, [facility] [address] [place] [id number] [place] [address] Nov, [place] [address] [address] [place] [id number] [place] [address] Nov, Major depressive disorder, r ecurrent episode, moderate 296.32 [facility] [address] [place] [id number] [address] [place] [address] Oct, [facility] [address] [place] [id number] [place] [address] Oct, Major depressive disorder, r ecurrent episode, moderate 296.32 [facility] [address] [id number] [address] [place] [address] Oct, [facility] [address] [id number] [address] [place] [address] Sep, Hyperlipidemia 272.4 ; Depre ssion 311 and Urinary incontinence 788.30 [facility] [address] [id number] [address] [place] [address] Jul, [facility] [address] [id number] [address] [place] [address] Jul, [facility] [address] [id number] [address] [place] [address] Jan, [facility] [address] [id number] [address] [place] [address] Jan, [facility] [address] [id number] [address] [place] [address] Jan, [facility] [address] [id number] [address] [place] [address] Jan, [facility] [address] [id number] [address] [place] [address] 18 Dec, 2013 [facility] [address] [id number] [address] [place] [address] 18 Dec, 2013 [facility] [address] [id number] [address] [place] [address] 17 Dec, 2013 [facility] [address] [id number] [address] [place] [address] 17 Dec, 2013 [facility] [address] [id number] [address] [place] [address] 16 Dec, 2013 [facility] [address] [id number] [address] [place] [address] 16 Dec, 2013 [facility] [address] [id number] [address] [place] [address], [place] [address] Oct, [facility] [address] [id number] [address] [place] [address], [place] [address] Oct, [facility] [address] [id number] [address] [place] [address], [place] [address] August, [facility] [address] [id number] [address] [place] [address], [place] [address] August, [facility] [address] [id number] [address] [place] [address], [place] [address] August, [facility] [address] [id number] [address] [place] [address], [place] [address] August, [facility] [address] [id number] [address] [place] [address], [place] [address] Jul, [facility] [address] [id number] [address] [place] [address], [place] [address] Jul, [facility] [address] [id number] [address] [place] [address], [place] [address] Jun, [facility] [address] [id number] [address] [place] [address], [place] [address] Jun, [facility] [address] [id number] [address] [place] [address], [place] [address] Mar, [facility] [address] [id number] [address] [place] [address], [place] [address] Mar, [facility] [address] [id number] [address] [place] [address], [place] [address] Jan, [facility] [address] [id number] [address] [place] [address], [place] [address] Oct, [facility] [address] [id number] [address] [place] [address], [place] [address] August, [facility] [address] [id number] [address] [place] [address], [place] [address] Jun, [facility] [address] [id number] [address] [place] [address], [place] [address] Apr, [facility] [address] [id number] [address] [place] [address], [place] [address] Mar, [facility] [address] [id number] [address] [place] [address], [place] [address] Mar, [facility] [address] [id number] [address] [place] [address], [place] [address] Mar, [facility] [address] [id number] [address] [place] [address], [place] [address] Mar, [facility] [address] [id number] [address] [place] [address], [place] [address] Nov, [facility] [address] [id number] [address] [place] [address], [place] [address] Nov, [facility] [address] [id number] [address] [place] [address], [place] [address] Mar, [facility] [address] [id number] [address] [place] [address], [place] [address] Mar, [facility] [address] [id number] [address] [place] [address], [place] [address] Oct, [facility] [address] [id number] [address] [place] [address], [place] [address] Oct, [facility] [address] [id number] [address] [place] [address], [place] [address] Sep, [facility] [address] [id number] [address] [place] [address], [place] [address] Apr, [facility] [address] [id number] [address] [place] [address], [place] [address] Feb, [facility] [address] [id number] [address] [place] [address], [place] [address] 28 Jan, 2010 [facility] [address] [id number] [address] [place] [address], [place] [address] Jan, IMMUNIZATIONS No Known Immunizations SOCIAL HISTORY Never Assessed REASON FOR VISIT Ultrasound order PLAN OF CARE VITAL SIGNS MEDICATIONS Unknown Medications RESULTS Name Result Date Reference Range Ultrasound : Abdomen, LIMITED (specify organ) 07-07-27 PROCEDURES No Known procedures INSTRUCTIONS MEDICATIONS ADMINISTERED No Known Medications MEDICAL (GENERAL) HISTORY Type Description Date Medical History hyperlipidemia Medical History anxiety Medical History Allergies Medical History Calculus of gallbladder with out cholecystitis without obstruction Medical History Calculus of gallbladder with out cholecystitis without obstruction Surgical History heart cath [facility]'s- normal per record review 05/2009 Surgical History breast biopsy/benign mass removed 1 Surgical History section x 1 Surgical History bladder surgery 11/2014 Surgical History Gallbladder Removal 03/2017 Hospitalization History Surgery
--- OUTSIDE RECORDS SUMMARY | 2019-08-08 15:50 | XMS REPORT ---
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 Name Role Phone LAMONT RAMIREZ Unavailable PROBLEMS Type Condition ICD9-CM Code SLL56-LL Code Onset Dates Condition S tatus SNOMED Code Problem Essential hypertension I10 Active 59844990 Problem Allergic rhinitis J30.9 Active 61 543741 Problem Hyperlipidemia E78.5 Active 48122 004 Problem Chronic obstructive pulmonary disease, unspecified COPD ty pe J44.9 Active 63192998 Problem 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 Active 32931236 Problem 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 Active 055229607 Problem GERD (gastroesophageal reflux disease) K21.9 Active 483839609 Problem Depression F32.9 Active 84063555 Problem Tobacco use Z72.0 Active 38616652 8 Problem Anxiety F41.9 Active 63954490 ALLERGIES No Information ENCOUNTERS Encounter Location Date Diagnosis [place] [place] [id number] [address] [place] [address] Jul, [place] [address] [address] Jul, Right groin pain R10.31 and Hoarseness R49.0 [facility] [address] [place] [id number] [address] [place] [address] Jun, [facility] [address] [address] Jun, Chronic obstructive pulmonar y disease, unspecified COPD type J44.9 and Bronchitis J40 [facility] [address] [place] [id number] [address] [place] [address] Jun, Right groin pain R10.31 [facility] [address] [address] Jun, Right groin pain R10.[address] [address] Jun, Right groin pain R10.31 ; Ch ronic obstructive pulmonary disease, unspecified COPD type J44.9 ; 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 ; Anxiety F41.9 ; Depression F32.9 and 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 [address] Feb, [address] [address] Jan, Hyperlipidemia 272.4 ; Adeno ma of right adrenal gland D35.01 and Hyperlipidemia E78.[address] [address] Jan, [address] [address] Dec, Adenoma of right adrenal gla nd D35.01 ; Essential hypertension I10 ; Hyperlipidemia E78.5 ; Calculus of gallbladder without cholecystitis without obstruction K80.20 ; Tobacco use Z72.0 and BMI 33.0-33.9,adult Z68.[address] [address] Nov, Essential hypertension I10 [address] [address] Nov, At high risk for kidney inju ry Z91.[address] [address] Nov, Right adrenal mass E27.9 and Calculus of gallbladder without cholecystitis without obstruction K80.20 [facility] [address] [address] Sep, Musculoskeletal pain of righ t lower extremity M79.604 [facility] [address] [facility] [id number] [address] [place] [address] Oct, Chronic obstructive pulmonar y disease, unspecified COPD type J44.9 [facility] [address] [facility] [id number] [address] [place] [address] Oct, Tobacco abuse Z72.0 [facility] [address] [place] [id number] [address] [place] [address] Sep, [facility] [address] [facility] [id number] [address] [place] [address] August, Bronchitis J40 [facility] [address] [address] Apr, Depression F32.9 ; Essential hypertension I10 ; Hyperlipidemia E78.5 ; Abdominal bloating R14.0 ; Irregular menstruation N92.6 ; Hoarseness or changing voice R49.9 ; Wheezing R06.2 and Tobacco abuse Z72.0 [place] [address] [place] [id number] [address] [place] [address] Nov, Major depressive disorder, r ecurrent episode, moderate 296.32 [place] [address] [place] [id number] [address] [place] [address] Nov, Hypertension 401.9 and Tobac co abuse 305.1 [place] [address] [place] [id number] [address] [place] [address] Nov, [facility] [address] [place] [id number] [address] [place] [address] Nov, [place] [address] [place] [id number] [address] [place] [address] Nov, Major depressive disorder, r ecurrent episode, moderate 296.32 [facility] [address] [place] [id number] [address] [place] [address] Oct, [facility] [address] [place] [id number] [address] [place] [address] Oct, Major depressive disorder, r ecurrent episode, moderate 296.32 [facility] [address] [id number] [address] [place] [address] Oct, [facility] [address] [id number] [address] [place] [address] Sep, Hyperlipidemia 272.4 ; Depre ssion 311 and Urinary incontinence 788.30 [facility] [address] [id number] [address] [place] [address] Jul, [facility] [address] [id number] [address] [place] [address] Jul, [facility] [address] [id number] [address] [place] [address] Jan, [facility] [address] [id number] [address] [place] [address] Jan, [facility] [address] [id number] [address] [place] [address] Jan, [facility] [address] [id number] [address] [place] [address] Jan, [facility] [address] [id number] [address] [place] [address] 18 Dec, 2013 [facility] [address] [id number] [address] [place] [address] 18 Dec, 2013 [facility] [address] [id number] [address] [place] [address] 17 Dec, 2013 [facility] [address] [id number] [address] [place] [address] 17 Dec, 2013 [facility] [address] [id number] [address] [place] [address] 16 Dec, 2013 [facility] [address] [id number] [address] [place] [address] 16 Dec, 2013 [facility] [address] [id number] [address] [place] [address], [place] [address] Oct, [facility] [address] [id number] [address] [place] [address], [place] [address] Oct, [facility] [address] [id number] [address] [place] [address], [place] [address] August, [facility] [address] [id number] [address] [place] [address], [place] [address] August, [facility] [address] [id number] [address] [place] [address], [place] [address] August, [facility] [address] [id number] [address] [place] [address], [place] [address] August, [facility] [address] [id number] [address] [place] [address], [place] [address] Jul, [facility] [address] [id number] [address] [place] [address], [place] [address] Jul, [facility] [address] [id number] [address] [place] [address], [place] [address] Jun, [facility] [address] [id number] [address] [place] [address], [place] [address] Jun, [facility] [address] [id number] [address] [place] [address], [place] [address] Mar, [facility] [address] [id number] [address] [place] [address], [place] [address] Mar, [facility] [address] [id number] [address] [place] [address], [place] [address] Jan, [facility] [address] [id number] [address] [place] [address], [place] [address] Oct, [facility] [address] [id number] [address] [place] [address], [place] [address] August, [facility] [address] [id number] [address] [place] [address], [place] [address] Jun, [facility] [address] [id number] [address] [place] [address], [place] [address] Apr, [facility] [address] [id number] [address] [place] [address], [place] [address] Mar, [facility] [address] [id number] [address] [place] [address], [place] [address] Mar, [facility] [address] [id number] [address] [place] [address], [place] [address] Mar, [facility] [address] [id number] [address] [place] [address], [place] [address] Mar, [facility] [address] [id number] [address] [place] [address], [place] [address] Nov, [facility] [address] [id number] [address] [place] [address], [place] [address] Nov, [facility] [address] [id number] [address] [place] [address], [place] [address] Mar, [facility] [address] [id number] [address] [place] [address], [place] [address] Mar, [facility] [address] [id number] [address] [place] [address], [place] [address] Oct, [facility] [address] [id number] [address] [place] [address], [place] [address] Oct, [facility] [address] [id number] [address] [place] [address], [place] [address] Sep, [facility] [address] [id number] [address] [place] [address], [place] [address] Apr, [facility] [address] [id number] [address] [place] [address], [place] [address] Feb, [facility] [address] [id number] [address] [place] [address], [place] [address] 28 Jan, 2010 [facility] [address] [id number] [address] [place] [address], [place] [id number] Jan, IMMUNIZATIONS No Known Immunizations SOCIAL HISTORY Never Assessed REASON FOR VISIT Lab (walk-in) PLAN OF CARE VITAL SIGNS MEDICATIONS Unknown Medications RESULTS Name Result Date Reference Range LIPID PANEL 2017-02-14 Cholesterol, Total 263 100-199 Triglycerides 115 0-149 HDL Cholesterol 39 >39 VLDL Cholesterol Dionicio 23 5-40 LDL Cholesterol Calc 201 0-99 Comment: RENIN & ALDOSTERONE, PLASMA 2017-02-14 Renin Activity, Plasma 0.300 0.167-5.3 80 Aldosterone 6.6 0.0-30.0 CMP 2017-02-14 Glucose, Serum 110 65-99 BUN 13 6-24 Creatinine, Serum 0.87 0.57-1.00 eGFR If NonAfricn Am 77 >59 eGFR If Africn Am 89 >59 BUN/Creatinine Ratio 15 9-23 Sodium, Serum 141 134-144 Potassium, Serum 4.4 3.5-5.2 Chloride, Serum 98 96-106 Carbon Dioxide, Total 27 18-29 Calcium, Serum 9.6 8.7-10.2 Protein, Total, Serum 7.1 6.0-8.5 Albumin, Serum 4.5 3.5-5.5 Globulin, Total 2.6 1.5-4.5 A/G Ratio 1.7 1.2-2.2 Bilirubin, Total 0.3 0.0-1.2 Alkaline Phosphatase, S 74 39-117 AST (SGOT) 13 0-40 ALT (SGPT) 15 0-32 CBC 2017-02-14 WBC 7.2 3.4-10.8 RBC 4.87 3.77-5.28 Hemoglobin 14.6 11.1-15.9 Hematocrit 43.3 34.0-46.6 MCV 89 79-97 MCH 30.0 26.6-33.0 MCHC 33.7 31.5-35.7 RDW 13.1 12.3-15.4 Platelets 366 150-379 Neutrophils 70 Not Estab. Lymphs 22 Not Estab. Monocytes 6 Not Estab. Eos 1 Not Estab. Basos 0 Not Estab. Neutrophils (Absolute) 5.1 1.4-7.0 Lymphs (Absolute) 1.6 0.7-3.1 Monocytes(Absolute) 0.4 0.1-0.9 Eos (Absolute) 0.0 0.0-0.4 Baso (Absolute) 0.0 0.0-0.2 Immature Granulocytes 1 Not Estab. Immature Grans (Abs) 0.1 0.0-0.1 CORTISOL, SERUM-AM 2017-02-14 Cortisol - AM 1.4 6.2-19.4 PROCEDURES Procedure Date Ordered Result Body Site COMPLETE CBC W/AUTO DIFF WBC Feb 14, 2017 COMPREHEN METABOLIC PANEL Feb 14, 2017 ASSAY OF RENIN Feb 14, 2017 ASSAY OF ALDOSTERONE Feb 14, 2017 VENIPUNCT, ROUTINE* Feb 14, 2017 TOTAL CORTISOL Feb 14, 2017 INSTRUCTIONS MEDICATIONS ADMINISTERED No Known Medications MEDICAL (GENERAL) HISTORY Type Description Date Medical History hyperlipidemia Medical History anxiety Medical History Allergies Medical History Calculus of gallbladder with out cholecystitis without obstruction Medical History Calculus of gallbladder with out cholecystitis without obstruction Surgical History heart cath [facility]'s- normal per record review 05/2009 Surgical History breast biopsy/benign mass removed 1 Surgical History section x 1 Surgical History bladder surgery 11/2014 Surgical History Gallbladder Removal 03/2017 Hospitalization History Surgery
--- OUTSIDE RECORDS SUMMARY | 2019-08-08 15:50 | XMS REPORT ---
Author Author Loren RAMIREZ [facility] Address [address] [place] [address] Care Team Providers Care Dentistry Teacher Name Role Phone LAMONT RAMIREZ Unavailable PROBLEMS Type Condition ICD9-CM Code CHV24-SN Code Onset Dates Condition S tatus SNOMED Code Problem Essential hypertension I10 Active 32817988 Problem Allergic rhinitis J30.9 Active 61 814225 Problem Hyperlipidemia E78.5 Active 15421 004 Problem Chronic obstructive pulmonary disease, unspecified COPD ty pe J44.9 Active 80656104 Problem 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 Active 26426437 Problem 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 Active 685488239 Problem GERD (gastroesophageal reflux disease) K21.9 Active 562842111 Problem Depression F32.9 Active 75308303 Problem Tobacco use Z72.0 Active 01845825 8 Problem Anxiety F41.9 Active 25677351 ALLERGIES No Information ENCOUNTERS Encounter Location Date Diagnosis [place] [id number] [address] [place] [address] Jul, [place] [address] [address] Jul, Right groin pain R10.31 and Hoarseness R49.0 [facility] [address] [place] [id number] [address] [place] [address] Jun, [facility] [address] [address] Jun, Chronic obstructive pulmonar y disease, unspecified COPD type J44.9 and Bronchitis J40 [facility] [address] [place] [id number] [address] [place] [address] Jun, Right groin pain R10.31 [facility] [address] [address] Jun, Right groin pain R10.[address] [address] Jun, Right groin pain R10.31 ; Ch ronic obstructive pulmonary disease, unspecified COPD type J44.9 ; 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 ; Anxiety F41.9 ; Depression F32.9 and 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 [address] Feb, [address] [address] Jan, Hyperlipidemia 272.4 ; Adeno ma of right adrenal gland D35.01 and Hyperlipidemia E78.[address] [address] Jan, [address] [address] Dec, Adenoma of right adrenal gla nd D35.01 ; Essential hypertension I10 ; Hyperlipidemia E78.5 ; Calculus of gallbladder without cholecystitis without obstruction K80.20 ; Tobacco use Z72.0 and BMI 33.0-33.9,adult Z68.[address] [address] Nov, Essential hypertension I10 [address] [address] Nov, At high risk for kidney inju ry Z91.[address] [address] Nov, Right adrenal mass E27.9 and Calculus of gallbladder without cholecystitis without obstruction K80.20 [facility] [address] [address] Sep, Musculoskeletal pain of righ t lower extremity M79.604 [facility] [address] [facility] [id number] [address] [place] [address] Oct, Chronic obstructive pulmonar y disease, unspecified COPD type J44.9 [facility] [address] [facility] [id number] [address] [place] [address] Oct, Tobacco abuse Z72.0 [facility] [address] [place] [id number] [address] [place] [address] Sep, [facility] [address] [facility] [id number] [address] [place] [address] August, Bronchitis J40 [facility] [address] [address] Apr, Depression F32.9 ; Essential hypertension I10 ; Hyperlipidemia E78.5 ; Abdominal bloating R14.0 ; Irregular menstruation N92.6 ; Hoarseness or changing voice R49.9 ; Wheezing R06.2 and Tobacco abuse Z72.0 [place] [place] [id number] [address] [place] [address] Nov, Major depressive disorder, r ecurrent episode, moderate 296.32 [place] [address] [place] [id number] [address] [place] [address] Nov, Hypertension 401.9 and Tobac co abuse 305.1 [place] [address] [place] [id number] [address] [place] [address] Nov, [facility] [address] [place] [id number] [address] [place] [address] Nov, [place] [address] [place] [id number] [address] [place] [address] Nov, Major depressive disorder, r ecurrent episode, moderate 296.32 [facility] [address] [place] [id number] [address] [place] [address] Oct, [facility] [address] [place] [id number] [address] [place] [address] Oct, Major depressive disorder, r ecurrent episode, moderate 296.32 [facility] [address] [id number] [address] [place] [address] Oct, [facility] [address] [id number] [address] [place] [address] Sep, Hyperlipidemia 272.4 ; Depre ssion 311 and Urinary incontinence 788.30 [facility] [address] [id number] [address] [place] [address] Jul, [facility] [address] [id number] [address] [place] [address] Jul, [facility] [address] [id number] [address] [place] [address] Jan, [facility] [address] [id number] [address] [place] [address] Jan, [facility] [address] [id number] [address] [place] [address] Jan, [facility] [address] [id number] [address] [place] [address] Jan, [facility] [address] [id number] [address] [place] [address] 18 Dec, 2013 [facility] [address] [id number] [address] [place] [address] 18 Dec, 2013 [facility] [address] [id number] [address] [place] [address] 17 Dec, 2013 [facility] [address] [id number] [address] [place] [address] 17 Dec, 2013 [facility] [address] [id number] [address] [place] [address] 16 Dec, 2013 [facility] [address] [id number] [address] [place] [address] 16 Dec, 2013 [facility] [address] [id number] [address] [place] [address], [place] [address] Oct, [facility] [address] [id number] [address] [place] [address], [place] [address] Oct, [facility] [address] [id number] [address] [place] [address], [place] [address] August, [facility] [address] [id number] [address] [place] [address], [place] [address] August, [facility] [address] [id number] [address] [place] [address], [place] [address] August, [facility] [address] [id number] [address] [place] [address], [place] [address] August, [facility] [address] [id number] [address] [place] [address], [place] [address] Jul, [facility] [address] [id number] [address] [place] [address], [place] [address] Jul, [facility] [address] [id number] [address] [place] [address], [place] [address] Jun, [facility] [address] [id number] [address] [place] [address], [place] [address] Jun, [facility] [address] [id number] [address] [place] [address], [place] [address] Mar, [facility] [address] [id number] [address] [place] [address], [place] [address] Mar, [facility] [address] [id number] [address] [place] [address], [place] [address] Jan, [facility] [address] [id number] [address] [place] [address], [place] [address] Oct, [facility] [address] [id number] [address] [place] [address], [place] [address] August, [facility] [address] [id number] [address] [place] [address], [place] [address] Jun, [facility] [address] [id number] [address] [place] [address], [place] [address] Apr, [facility] [address] [id number] [address] [place] [address], [place] [address] Mar, [facility] [address] [id number] [address] [place] [address], [place] [address] Mar, [facility] [address] [id number] [address] [place] [address], [place] [address] Mar, [facility] [address] [id number] [address] [place] [address], [place] [address] Mar, [facility] [address] [id number] [address] [place] [address], [place] [address] Nov, [facility] [address] [id number] [address] [place] [address], [place] [address] Nov, [facility] [address] [id number] [address] [place] [address], [place] [address] Mar, [facility] [address] [id number] [address] [place] [address], [place] [address] Mar, [facility] [address] [id number] [address] [place] [address], [place] [address] Oct, [facility] [address] [id number] [address] [place] [address], [place] [address] Oct, [facility] [address] [id number] [address] [place] [address], [place] [address] Sep, [facility] [address] [id number] [address] [place] [address], [place] [address] Apr, [facility] [address] [id number] [address] [place] [address], [place] [address] Feb, [facility] [address] [id number] [address] [place] [address], [place] [address] 28 Jan, 2010 [facility] [address] [id number] [address] [place] [address], [place] [address] Jan, IMMUNIZATIONS No Known Immunizations SOCIAL HISTORY Never Assessed REASON FOR VISIT Patient Concerns PLAN OF CARE VITAL SIGNS MEDICATIONS Unknown Medications RESULTS No Results PROCEDURES No Known procedures INSTRUCTIONS MEDICATIONS ADMINISTERED No Known Medications MEDICAL (GENERAL) HISTORY Type Description Date Medical History hyperlipidemia Medical History anxiety Medical History Allergies Medical History Calculus of gallbladder with out cholecystitis without obstruction Medical History Calculus of gallbladder with out cholecystitis without obstruction Surgical History heart cath [facility]- normal per record review 05/2009 Surgical History breast biopsy/benign mass removed 1 Surgical History section x 1 Surgical History bladder surgery 11/2014 Surgical History Gallbladder Removal 03/2017 Hospitalization History Surgery
--- OUTSIDE RECORDS SUMMARY | 2019-08-08 15:50 | XMS REPORT ---
Author Author Loren RAMIREZ [facility] Address [address] [place] [address] Care Team Providers Care Assault Boat Coxswain Name Role Phone LAMONT RAMIREZ Unavailable PROBLEMS Type Condition ICD9-CM Code XKZ62-JO Code Onset Dates Condition S tatus SNOMED Code Problem Essential hypertension I10 Active 20765489 Problem Allergic rhinitis J30.9 Active 61 875660 Problem Hyperlipidemia E78.5 Active 75543 004 Problem Chronic obstructive pulmonary disease, unspecified COPD ty pe J44.9 Active 81677119 Problem 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 Active 61120529 Problem 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 Active 378341929 Problem GERD (gastroesophageal reflux disease) K21.9 Active 001207939 Problem Depression F32.9 Active 83672962 Problem Tobacco use Z72.0 Active 60685915 8 Problem Anxiety F41.9 Active 81076722 ALLERGIES No Information ENCOUNTERS Encounter Location Date Diagnosis [place] [place] [id number] [address] [place] [address] Jul, [place] [address] [address] Jul, Right groin pain R10.31 and Hoarseness R49.0 [facility] [address] [place] [id number] [address] [place] [address] Jun, [facility] [address] [address] Jun, Chronic obstructive pulmonar y disease, unspecified COPD type J44.9 and Bronchitis J40 [facility] [address] [place] [id number] [address] [place] [address] Jun, Right groin pain R10.31 [facility] [address] [address] Jun, Right groin pain R10.[address] [address] Jun, Right groin pain R10.31 ; Ch ronic obstructive pulmonary disease, unspecified COPD type J44.9 ; 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 ; Anxiety F41.9 ; Depression F32.9 and 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 [address] Feb, [address] [address] Jan, Hyperlipidemia 272.4 ; Adeno ma of right adrenal gland D35.01 and Hyperlipidemia E78.[address] [address] Jan, [address] [address] Dec, Adenoma of right adrenal gla nd D35.01 ; Essential hypertension I10 ; Hyperlipidemia E78.5 ; Calculus of gallbladder without cholecystitis without obstruction K80.20 ; Tobacco use Z72.0 and BMI 33.0-33.9,adult Z68.[address] [address] Nov, Essential hypertension I10 [address] [address] Nov, At high risk for kidney inju ry Z91.[address] [address] Nov, Right adrenal mass E27.9 and Calculus of gallbladder without cholecystitis without obstruction K80.20 [facility] [address] [address] Sep, Musculoskeletal pain of righ t lower extremity M79.604 [facility] [address] [facility] [id number] [address] [place] [address] Oct, Chronic obstructive pulmonar y disease, unspecified COPD type J44.9 [facility] [address] [facility] [id number] [address] [place] [address] Oct, Tobacco abuse Z72.0 [facility] [address] [place] [id number] [address] [place] [address] Sep, [facility] [address] [facility] [id number] [address] [place] [address] August, Bronchitis J40 [facility] [address] [address] Apr, Depression F32.9 ; Essential hypertension I10 ; Hyperlipidemia E78.5 ; Abdominal bloating R14.0 ; Irregular menstruation N92.6 ; Hoarseness or changing voice R49.9 ; Wheezing R06.2 and Tobacco abuse Z72.0 [place] [address] [place] [id number] [address] [place] [address] Nov, Major depressive disorder, r ecurrent episode, moderate 296.32 [place] [address] [place] [id number] [address] [place] [address] Nov, Hypertension 401.9 and Tobac co abuse 305.1 [place] [address] [place] [id number] [address] [place] [address] Nov, [facility] [address] [place] [id number] [address] [place] [address] Nov, [place] [address] [place] [id number] [address] [place] [address] Nov, Major depressive disorder, r ecurrent episode, moderate 296.32 [facility] [address] [place] [id number] [address] [place] [address] Oct, [facility] [address] [place] [id number] [address] [place] [address] Oct, Major depressive disorder, r ecurrent episode, moderate 296.32 [facility] [address] [id number] [address] [place] [address] Oct, [facility] [address] [id number] [address] [place] [address] Sep, Hyperlipidemia 272.4 ; Depre ssion 311 and Urinary incontinence 788.30 [facility] [address] [id number] [address] [place] [address] Jul, [facility] [address] [id number] [address] [place] [address] Jul, [facility] [address] [id number] [address] [place] [address] Jan, [facility] [address] [id number] [address] [place] [address] Jan, [facility] [address] [id number] [address] [place] [address] Jan, [facility] [address] [id number] [address] [place] [address] Jan, [facility] [address] [id number] [address] [place] [address] 18 Dec, 2013 [facility] [address] [id number] [address] [place] [address] 18 Dec, 2013 [facility] [address] [id number] [address] [place] [address] 17 Dec, 2013 [facility] [address] [id number] [address] [place] [address] 17 Dec, 2013 [facility] [address] [id number] [address] [place] [address] 16 Dec, 2013 [facility] [address] [id number] [address] [place] [address] 16 Dec, 2013 [facility] [address] [id number] [address] [place] [address], [place] [address] Oct, [facility] [address] [id number] [address] [place] [address], [place] [address] Oct, [facility] [address] [id number] [address] [place] [address], [place] [address] August, [facility] [address] [id number] [address] [place] [address], [place] [address] August, [facility] [address] [id number] [address] [place] [address], [place] [address] August, [facility] [address] [id number] [address] [place] [address], [place] [address] August, [facility] [address] [id number] [address] [place] [address], [place] [address] Jul, [facility] [address] [id number] [address] [place] [address], [place] [address] Jul, [facility] [address] [id number] [address] [place] [address], [place] [address] Jun, [facility] [address] [id number] [address] [place] [address], [place] [address] Jun, [facility] [address] [id number] [address] [place] [address], [place] [address] Mar, [facility] [address] [id number] [address] [place] [address], [place] [address] Mar, [facility] [address] [id number] [address] [place] [address], [place] [address] Jan, [facility] [address] [id number] [address] [place] [address], [place] [address] Oct, [facility] [address] [id number] [address] [place] [address], [place] [address] August, [facility] [address] [id number] [address] [place] [address], [place] [address] Jun, [facility] [address] [id number] [address] [place] [address], [place] [address] Apr, [facility] [address] [id number] [address] [place] [address], [place] [address] Mar, [facility] [address] [id number] [address] [place] [address], [place] [address] Mar, [facility] [address] [id number] [address] [place] [address], [place] [address] Mar, [facility] [address] [id number] [address] [place] [address], [place] [address] Mar, [facility] [address] [id number] [address] [place] [address], [place] [address] Nov, [facility] [address] [id number] [address] [place] [address], [place] [address] Nov, [facility] [address] [id number] [address] [place] [address], [place] [address] Mar, [facility] [address] [id number] [address] [place] [address], [place] [address] Mar, [facility] [address] [id number] [address] [place] [address], [place] [address] Oct, [facility] [address] [id number] [address] [place] [address], [place] [address] Oct, [facility] [address] [id number] [address] [place] [address], [place] [address] Sep, [facility] [address] [id number] [address] [place] [address], [place] [address] Apr, [facility] [address] [id number] [address] [place] [address], [place] [address] Feb, [facility] [address] [id number] [address] [place] [address], [place] [address] 28 Jan, 2010 [facility] [address] [id number] [address] [place] [address], [place] [address] Jan, IMMUNIZATIONS No Known Immunizations SOCIAL HISTORY Never Assessed REASON FOR VISIT Surgery Question PLAN OF CARE VITAL SIGNS MEDICATIONS Unknown [...]
--- OUTSIDE RECORDS SUMMARY | 2019-08-08 15:50 | XMS REPORT ---
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 Active 59291418 Problem 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 Active 877890868 Problem GERD (gastroesophageal reflux disease) K21.9 Active 439959124 Problem Depression F32.9 Active 04041051 Problem Tobacco use Z72.0 Active 48155454 8 Problem Anxiety F41.9 Active 93492091 ALLERGIES No Known Allergies ENCOUNTERS Encounter Location Date Diagnosis [place] [id number] [place] [address] Jul, [place] [address] [address] Jul, Right groin pain R10.31 and Hoarseness R49.0 [facility] [id number] [place] [address] Jun, [facility] [address] [address] Jun, Chronic obstructive pulmonar y disease, unspecified COPD type J44.9 and Bronchitis J40 [facility] [id number] [place] [address] Jun, Right groin pain R10.[address] [facility] [address] Jun, Right groin pain R10.[address] [address] Jun, Right groin pain R10.31 ; Ch ronic obstructive pulmonary disease, unspecified COPD type J44.9 ; 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 ; Anxiety F41.9 ; Depression F32.9 and 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 [address] Feb, [address] [address] Jan, Hyperlipidemia 272.4 ; Adeno ma of right adrenal gland D35.01 and Hyperlipidemia E78.[address] [address] Jan, [address] [address] Dec, Adenoma of right adrenal gla nd D35.01 ; Essential hypertension I10 ; Hyperlipidemia E78.5 ; Calculus of gallbladder without cholecystitis without obstruction K80.20 ; Tobacco use Z72.0 and BMI 33.0-33.9,adult Z68.[address] [address] Nov, Essential hypertension I10 [address] [address] Nov, At high risk for kidney inju ry Z91.[address] [address] Nov, Right adrenal mass E27.9 and Calculus of gallbladder without cholecystitis without obstruction K80.20 [facility] [address] [place] [address] Sep, Musculoskeletal pain of righ t lower extremity M79.604 [facility] [id number] [place] [address] Oct, Chronic obstructive pulmonar y disease, unspecified COPD type J44.9 [facility] [id number] [place] [address] Oct, Tobacco abuse Z72.0 [facility] [id number] [place] [address] Sep, [facility] [id number] [place] [address] August, Bronchitis J40 [facility] [address] [address] Apr, Depression F32.9 ; Essential hypertension I10 ; Hyperlipidemia E78.5 ; Abdominal bloating R14.0 ; Irregular menstruation N92.6 ; Hoarseness or changing voice R49.9 ; Wheezing R06.2 and Tobacco abuse Z72.0 [place] [address] [id number] [place] [address] Nov, Major depressive disorder, r ecurrent episode, moderate 296.32 [place] [id number] [place] [address] Nov, Hypertension 401.9 and Tobac co abuse 305.1 [place] [id number] [place] [address] Nov, [facility] [id number] [place] [address] Nov, [place] [address] [address] Nov, Major depressive disorder, r ecurrent episode, moderate 296.32 [facility] [id number] [place] [address] Oct, [facility] [address] [address] Oct, Major depressive disorder, r ecurrent episode, moderate 296.32 [facility] [address] [id number] [address] [place] [address] Oct, [facility] [address] [id number] [address] [place] [address] Sep, Hyperlipidemia 272.4 ; Depre ssion 311 and Urinary incontinence 788.30 [facility] [address] [id number] [address] [place] [address] Jul, [facility] [address] [id number] [address] [place] [address] Jul, [facility] [address] [id number] [address] [place] [address] Jan, [facility] [address] [id number] [address] [place] [address] Jan, [facility] [address] [id number] [address] [place] [address] Jan, [facility] [address] [id number] [address] [place] [address] Jan, [facility] [address] [id number] [address] [place] [address] 18 Dec, 2013 [facility] [address] [id number] [address] [place] [address] 18 Dec, 2013 [facility] [address] [id number] [address] [place] [address] 17 Dec, 2013 [facility] [address] [id number] [address] [place] [address] 17 Dec, 2013 [facility] [address] [id number] [address] [place] [address] 16 Dec, 2013 [facility] [address] [id number] [address] [place] [address] 16 Dec, 2013 [facility] [address] [id number] [address] [place] [address], [place] [address] Oct, [facility] [address] [id number] [address] [place] [address], [place] [address] Oct, [facility] [address] [id number] [address] [place] [address], [place] [address] August, [facility] [address] [id number] [address] [place] [address], [place] [address] August, [facility] [address] [id number] [address] [place] [address], [place] [address] August, [facility] [address] [id number] [address] [place] [address], [place] [address] August, [facility] [address] [id number] [address] [place] [address], [place] [address] Jul, [facility] [address] [id number] [address] [place] [address], [place] [address] Jul, [facility] [address] [id number] [address] [place] [address], [place] [address] Jun, [facility] [address] [id number] [address] [place] [address], [place] [address] Jun, [facility] [address] [id number] [address] [place] [address], [place] [address] Mar, [facility] [address] [id number] [address] [place] [address], [place] [address] Mar, [facility] [address] [id number] [address] [place] [address], [place] [address] Jan, [facility] [address] [id number] [address] [place] [address], [place] [address] Oct, [facility] [address] [id number] [address] [place] [address], [place] [address] August, [facility] [address] [id number] [address] [place] [address], [place] [address] Jun, [facility] [address] [id number] [address] [place] [address], [place] [address] Apr, [facility] [address] [id number] [address] [place] [address], [place] [address] Mar, [facility] [address] [id number] [address] [place] [address], [place] [address] Mar, [facility] [address] [id number] [address] [place] [address], [place] [address] Mar, [facility] [address] [id number] [address] [place] [address], [place] [address] Mar, [facility] [address] [id number] [address] [place] [address], [place] [address] Nov, [facility] [address] [id number] [address] [place] [address], [place] [address] Nov, [facility] [address] [id number] [address] [place] [address], [place] [address] Mar, [facility] [address] [id number] [address] [place] [address], [place] [address] Mar, [facility] [address] [id number] [address] [place] [address], [place] [address] Oct, [facility] [address] [id number] [address] [place] [address], [place] [address] Oct, [facility] [address] [id number] [address] [place] [address], [place] [address] Sep, [facility] [address] [id number] [address] [place] [address], [place] [address] Apr, [facility] [address] [id number] [address] [place] [address], [place] [address] Feb, [facility] [address] [id number] [address] [place] [address], [place] [address] Jan, [facility] [address] [id number] [address] [place] [address], [place] [address] Jan, IMMUNIZATIONS No Known Immunizations SOCIAL HISTORY Never Assessed REASON FOR VISIT hip pain--tjanssenMA, --Gallbladder removal in March, groin are on right side is having inflammation pain , --left thigh tingles when on her feet. PLAN OF CARE Activity Details Follow Up 4 Weeks Reason:COPD/groin pa in VITAL SIGNS Height 67 in 2017-07-10 Weight 218 lbs 2017-07-10 Temperature 97.6 degrees Fahrenheit 2017-07-10 Heart Rate 74 bpm 2017-07-10 Respiratory Rate 20 2017-07-10 BMI 34.14 kg/m2 2017-07-10 Blood pressure systolic 118 mmHg 2017-07-10 Blood pressure diastolic 74 mmHg 2017-07-10 MEDICATIONS Medication Instructions Dosage Frequency Start Date End Date Duration S tatus ProAir HFA 108 (90 Base) MCG/ACT Inhalation every 4 hrs prn 2 puffs as needed August, 07 days Not-Taking Hydrochlorothiazide 25 MG Orally Once a day 1 tablet 24h Nov, 5 Active Omeprazole 20 MG Orally Once a day 1 capsule 24h 30 Not-Taking Flexeril 10 mg take 1 tablet (10 mg ) by oral route 3 times per day PRN take prn muscle spasm 16 Dec, 2013 Not-Taking Atorvastatin Calcium 20 mg Orally Once a day 1 tablet 24h 14 2016 90 days Active Combivent Respimat 20-100 MCG/ACT Inhalation Four times a day 1 puf f 6h 15 Oct, 2015 Active RESULTS Name Result Date Reference Range Xray : Hip, Right 2 views (IN HOUSE) 2017-07-10 PROCEDURES Procedure Date Ordered Result Body Site X-RAY EXAM HIP UNI 2-3 VIEWS July 10, 2017 INSTRUCTIONS MEDICATIONS ADMINISTERED No Known Medications [...]
--- OUTSIDE RECORDS SUMMARY | 2019-08-08 15:50 | XMS REPORT ---
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 Active 77701738 Problem 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 Active 972109656 Problem GERD (gastroesophageal reflux disease) K21.9 Active 073660293 Problem Depression F32.9 Active 76655792 Problem Tobacco use Z72.0 Active 16543666 8 Problem Anxiety F41.9 Active [id number] ALLERGIES No Known Allergies ENCOUNTERS Encounter Location Date Diagnosis [place] [id number] [place] [id number] [place] [phone] Oct, [facility] [place] [address] [place] [id number] [place] [phone] Jul, [facility] [place] [address] [place] [id number] [place] [address] Jul, Right groin pain R10.31 and Hoarseness R49.0 [facility] [place] [address] [place] [id number] [address] [place] [address] Jun, [facility] [place] [address] [place] [id number] [address] [place] [address] Jun, Chronic obstructive pulmonar y disease, unspecified COPD type J44.9 and Bronchitis J40 [place] [address] [place] [address] Jun, Right groin pain R10.[address] [address] Jun, Right groin pain R10.[address] [address] Jun, Right groin pain R10.31 ; Ch ronic obstructive pulmonary disease, unspecified COPD type J44.9 ; 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 ; Anxiety F41.9 ; Depression F32.9 and 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 [address] Feb, [address] [address] Jan, Hyperlipidemia 272.4 ; Adeno ma of right adrenal gland D35.01 and Hyperlipidemia E78.[address] [address] Jan, [address] [address] Dec, Adenoma of right adrenal gla nd D35.01 ; Essential hypertension I10 ; Hyperlipidemia E78.5 ; Calculus of gallbladder without cholecystitis without obstruction K80.20 ; Tobacco use Z72.0 and BMI 33.0-33.9,adult Z68.[address] [address] Nov, Essential hypertension I10 [address] [address] Nov, At high risk for kidney inju ry Z91.[address] [address] Nov, Right adrenal mass E27.9 and Calculus of gallbladder without cholecystitis without obstruction K80.20 [facility] [id number] [place] [address] Sep, Musculoskeletal pain of righ t lower extremity M79.604 [place] [address] [address] Oct, Chronic obstructive pulmonar y disease, unspecified COPD type J44.9 [facility] [place] [address] [address] Oct, Tobacco abuse Z72.0 [place] [address] [address] Sep, [facility] [address] [address] August, Bronchitis J40 [place] [address] [address] Apr, Depression F32.9 ; Essential hypertension I10 ; Hyperlipidemia E78.5 ; Abdominal bloating R14.0 ; Irregular menstruation N92.6 ; Hoarseness or changing voice R49.9 ; Wheezing R06.2 and Tobacco abuse Z72.0 [place] [address] [address] Nov, Major depressive disorder, r ecurrent episode, moderate 296.32 [place] [address] [address] Nov, Hypertension 401.9 and Tobac co abuse 305.1 [place] [address] [place] [id number] [place] [address] Nov, [place] [address] [address] Nov, [place] [address] [address] Nov, Major depressive disorder, r ecurrent episode, moderate 296.32 [place] [address] [address] Oct, [facility] [address] [id number] [address] [place] [phone] Oct, Major depressive disorder, r ecurrent episode, moderate 296.32 [facility] [address] [id number] [address] [place] [phone] Oct, [facility] [place] [address] [id number] [address] [place] [address] Sep, Hyperlipidemia 272.4 ; Depre ssion 311 and Urinary incontinence 788.30 [facility] [place] [address] [id number] [address] [place] [phone] Jul, [facility] [address] [id number] [address] [place] [address] Jul, [facility] [address] [id number] [address] [place] [phone] Jan, [facility] [address] [id number] [address] [place] [phone] Jan, [facility] [address] [id number] [address] [place] [phone] Jan, [facility] [address] [id number] [address] [place] [phone] Jan, [facility] [address] [id number] [address] [place] [phone] 18 Dec, 2013 [facility] [address] [id number] [address] [place] [phone] 18 Dec, 2013 [facility] [address] [id number] [address] [place] [phone] 17 Dec, 2013 [facility] [address] [id number] [address] [place] [phone] 17 Dec, 2013 [facility] [address] [id number] [address] [place] [phone] 16 Dec, 2013 [facility] [address] [id number] [address] [place] [address], [place] [address] 16 Dec, 2013 [facility] [address] [id number] [address] [place] [address], [place] [address] Oct, [facility] [address] [id number] [address] [place] [address], [place] [address] Oct, [facility] [address] [id number] [address] [place] [address], [place] [address] August, [facility] [address] [id number] [address] [place] [address], [place] [address] August, [facility] [address] [id number] [address] [place] [address], [place] [address] August, [facility] [address] [id number] [address] [place] [address], [place] [address] August, [facility] [address] [id number] [address] [place] [address], [place] [address] Jul, [facility] [address] [id number] [address] [place] [address], [place] [address] Jul, [facility] [address] [id number] [address] [place] [address], [place] [address] Jun, [facility] [address] [id number] [address] [place] [address], [place] [address] Jun, [facility] [address] [id number] [address] [place] [address], [place] [address] Mar, [facility] [address] [id number] [address] [place] [address], [place] [address] Mar, [facility] [address] [id number] [address] [place] [address], [place] [address] Jan, [facility] [address] [id number] [address] [place] [address], [place] [address] Oct, [facility] [address] [id number] [address] [place] [address], [place] [address] August, [facility] [address] [id number] [address] [place] [address], [place] [address] Jun, [facility] [address] [id number] [address] [place] [address], [place] [address] Apr, [facility] [address] [id number] [address] [place] [address], [place] [address] Mar, [facility] [address] [id number] [address] [place] [address], [place] [address] Mar, [facility] [address] [id number] [address] [place] [address], [place] [address] Mar, [facility] [address] [id number] [address] [place] [address], [place] [address] Mar, [facility] [address] [id number] [address] [place] [address], [place] [address] Nov, [facility] [address] [id number] [address] [place] [address], [place] [address] Nov, [facility] [address] [id number] [address] [place] [address], [place] [address] Mar, [facility] [address] [id number] [address] [place] [address], [place] [address] Mar, [facility] [address] [id number] [address] [place] [address], [place] [address] Oct, [facility] [address] [id number] [address] [place] [address], [place] [address] Oct, [facility] [address] [id number] [address] [place] [address], [place] [address] Sep, [facility] [address] [id number] [address] [place] [address], [place] [address] Apr, [facility] [address] [id number] [address] [place] [address], [place] [address] Feb, [facility] [address] [id number] [address] [place] [address], [place] [address] Jan, [facility] [place] [address] [facility] [id number] [address] [place] [address] Jan, IMMUNIZATIONS No Known Immunizations SOCIAL HISTORY Never Assessed REASON FOR VISIT hip pain--tjanssenMA, --discuss what the next step is for the pain she is having in her hip and groin area. Xray and US was all clear. , --the gal doing the us stated maybe siatic nerve pain , --pt states that she is hoarse and coughing al ot. She is around a bunch of dust at this point PLAN OF CARE Activity Details Follow Up prn Reason: VITAL SIGNS Height 67 in 2017-07-28 Weight 218.8 lbs 2017-07-28 Temperature 98.1 degrees Fahrenheit 2017-07-28 Heart Rate 84 bpm 2017-07-28 Respiratory Rate 20 2017-07-28 BMI 34.27 kg/m2 2017-07-28 Blood pressure systolic 114 mmHg 2017-07-28 Blood pressure diastolic 82 mmHg 2017-07-28 MEDICATIONS Medication Instructions Dosage Frequency Start Date End Date Duration S tatus Atorvastatin Calcium 20 mg Orally Once a day 1 tablet 24h 14 No 2016 90 days Active Flexeril 10 mg take 1 tablet (10 mg ) by oral route 3 times per day PRN take prn muscle spasm 16 Dec, 2013 Not-Taking Meloxicam 7.5 MG Orally Once a day 1 tablet as needed 24h 28 M , 2017Jul, 30 day(s) Active Omeprazole 20 MG Orally Once a day 1 capsule 24h 30 Not-Taking ProAir HFA 108 (90 Base) MCG/ACT Inhalation every 4 hrs prn 2 puffs as needed August, 07 days Active Tiotropium [place] Monohydrate 18 MCG Inhalation Once a day 1 capsu le 24h 30 Jun, 2017 Active Hydrochlorothiazide 25 MG Orally Once a day 1 tablet 24h Nov, 5 Active Nasacort Allergy 24HR 55 MCG/ACT Nasally [...] cholecystitis without obstruction Surgical History heart cath [facility]- normal per record review 05/2009 Surgical History breast biopsy/benign mass removed 1 Surgical History section x 1 Surgical History bladder surgery 11/2014 Surgical History Gallbladder Removal 03/2017 Hospitalization History Surgery
--- OUTSIDE RECORDS SUMMARY | 2019-08-08 15:50 | XMS REPORT ---
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 Active 19269333 Problem 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 Active 984914473 Problem GERD (gastroesophageal reflux disease) K21.9 Active 228316131 Problem Depression F32.9 Active 83315838 Problem Tobacco use Z72.0 Active 61629258 8 Problem Anxiety F41.9 Active 37879722 ALLERGIES No Information ENCOUNTERS Encounter Location Date Diagnosis [place] [id number] [address] [place] [address] Jul, [place] [address] [address] Jul, Right groin pain R10.31 and Hoarseness R49.0 [facility] [address] [place] [id number] [address] [place] [address] Jun, [facility] [address] [address] Jun, Chronic obstructive pulmonar y disease, unspecified COPD type J44.9 and Bronchitis J40 [facility] [address] [place] [id number] [place] [address] Jun, Right groin pain R10.31 [facility] [address] [address] Jun, Right groin pain R10.[address] [address] Jun, Right groin pain R10.31 ; Ch ronic obstructive pulmonary disease, unspecified COPD type J44.9 ; 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 ; Anxiety F41.9 ; Depression F32.9 and 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 [address] Feb, [address] [address] Jan, Hyperlipidemia 272.4 ; Adeno ma of right adrenal gland D35.01 and Hyperlipidemia E78.[address] [address] Jan, [address] [address] Dec, Adenoma of right adrenal gla nd D35.01 ; Essential hypertension I10 ; Hyperlipidemia E78.5 ; Calculus of gallbladder without cholecystitis without obstruction K80.20 ; Tobacco use Z72.0 and BMI 33.0-33.9,adult Z68.[address] [address] Nov, Essential hypertension I10 [address] [address] Nov, At high risk for kidney inju ry Z91.[address] [address] Nov, Right adrenal mass E27.9 and Calculus of gallbladder without cholecystitis without obstruction K80.20 [facility] [address] [address] Sep, Musculoskeletal pain of righ t lower extremity M79.604 [facility] [address] [facility] [id number] [address] [place] [address] Oct, Chronic obstructive pulmonar y disease, unspecified COPD type J44.9 [facility] [address] [facility]NOTE [facility] [id number] [address] [place] [address] Oct, Tobacco abuse Z72.0 [facility] [address] [place] [id number] [place] [address] Sep, [facility] [address] [facility]NOTE 3] [id number] [address] [place] [address] August, Bronchitis J40 [facility] [address] [address] Apr, Depression F32.9 ; Essential hypertension I10 ; Hyperlipidemia E78.5 ; Abdominal bloating R14.0 ; Irregular menstruation N92.6 ; Hoarseness or changing voice R49.9 ; Wheezing R06.2 and Tobacco abuse Z72.0 [place] [address] [place] [id number] [place] [address] Nov, Major depressive disorder, r ecurrent episode, moderate 296.32 [place] [address] [place] [id number] [place] [address] Nov, Hypertension 401.9 and Tobac co abuse 305.1 [place] [address] [place] [id number] [place] [address] Nov, [facility] [address] [place] [id number] [place] [address] Nov, [place] [address] [place] [id number] [place] [address] Nov, Major depressive disorder, r ecurrent episode, moderate 296.32 [facility] [address] [place] [id number] [address] [place] [address] Oct, [facility] [address] [place] [id number] [place] [address] Oct, Major depressive disorder, r ecurrent episode, moderate 296.32 [facility] [address] [id number] [address] [place] [address] Oct, [facility] [address] [id number] [address] [place] [address] Sep, Hyperlipidemia 272.4 ; Depre ssion 311 and Urinary incontinence 788.30 [facility] [address] [id number] [address] [place] [address] Jul, [facility] [address] [id number] [address] [place] [address] Jul, [facility] [address] [id number] [address] [place] [address] Jan, [facility] [address] [id number] [address] [place] [address] Jan, [facility] [address] [id number] [address] [place] [address] Jan, [facility] [address] [id number] [address] [place] [address] Jan, [facility] [address] [id number] [address] [place] [address] 18 Dec, 2013 [facility] [address] [id number] [address] [place] [address] 18 Dec, 2013 [facility] [address] [id number] [address] [place] [address] 17 Dec, 2013 [facility] [address] [id number] [address] [place] [address] 17 Dec, 2013 [facility] [address] [id number] [address] [place] [address] 16 Dec, 2013 [facility] [address] [id number] [address] [place] [address] 16 Dec, 2013 [facility] [address] [id number] [address] [place] [address], [place] [address] Oct, [facility] [address] [id number] [address] [place] [address], [place] [address] Oct, [facility] [address] [id number] [address] [place] [address], [place] [address] August, [facility] [address] [id number] [address] [place] [address], [place] [address] August, [facility] [address] [id number] [address] [place] [address], [place] [address] August, [facility] [address] [id number] [address] [place] [address], [place] [address] August, [facility] [address] [id number] [address] [place] [address], [place] [address] Jul, [facility] [address] [id number] [address] [place] [address], [place] [address] Jul, [facility] [address] [id number] [address] [place] [address], [place] [address] Jun, [facility] [address] [id number] [address] [place] [address], [place] [address] Jun, [facility] [address] [id number] [address] [place] [address], [place] [address] Mar, [facility] [address] [id number] [address] [place] [address], [place] [address] Mar, [facility] [address] [id number] [address] [place] [address], [place] [address] Jan, [facility] [address] [id number] [address] [place] [address], [place] [address] Oct, [facility] [address] [id number] [address] [place] [address], [place] [address] August, [facility] [address] [id number] [address] [place] [address], [place] [address] Jun, [facility] [address] [id number] [address] [place] [address], [place] [address] Apr, [facility] [address] [id number] [address] [place] [address], [place] [address] Mar, [facility] [address] [id number] [address] [place] [address], [place] [address] Mar, [facility] [address] [id number] [address] [place] [address], [place] [address] Mar, [facility] [address] [id number] [address] [place] [address], [place] [address] Mar, [facility] [address] [id number] [address] [place] [address], [place] [address] Nov, [facility] [address] [id number] [address] [place] [address], [place] [address] Nov, [facility] [address] [id number] [address] [place] [address], [place] [address] Mar, [facility] [address] [id number] [address] [place] [address], [place] [address] Mar, [facility] [address] [id number] [address] [place] [address], [place] [address] Oct, [facility] [address] [id number] [address] [place] [address], [place] [address] Oct, [facility] [address] [id number] [address] [place] [address], [place] [address] Sep, [facility] [address] [id number] [address] [place] [address], [place] [address] Apr, [facility] [address] [id number] [address] [place] [address], [place] [address] Feb, [facility] [address] [id number] [address] [place] [address], [place] [address] 28 Jan, 2010 [facility] [address] [id number] [address] [place] [address], [place] [address] Jan, IMMUNIZATIONS No Known Immunizations SOCIAL HISTORY Never Assessed REASON FOR VISIT Medication refill request PLAN OF CARE VITAL SIGNS MEDICATIONS Medication Instructions Dosage Frequency Start Date End Date Duration S tatus ProAir HFA 108 (90 Base) MCG/ACT Inhalation every 4 hrs prn 2 puffs as needed August, 07 days Active Tiotropium [place] Monohydrate 18 MCG Inhalation Once a day 1 capsu le 24h Jun, Active Atorvastatin Calcium 20 mg Orally Once a day 1 tablet 24h 14 2016 90 days Active RESULTS No Results PROCEDURES No Known procedures INSTRUCTIONS MEDICATIONS ADMINISTERED No Known Medications MEDICAL (GENERAL) HISTORY Type Description Date Medical History hyperlipidemia Medical History anxiety Medical History Allergies Medical History Calculus of gallbladder with out cholecystitis without obstruction Medical History Calculus of gallbladder with out cholecystitis without obstruction Surgical History heart cath [facility]- normal per record review 05/2009 Surgical History breast biopsy/benign mass removed 1 Surgical History section x 1 Surgical History bladder surgery 11/2014 Surgical History Gallbladder Removal 03/2017 Hospitalization History Surgery
--- OUTSIDE RECORDS SUMMARY | 2019-08-08 15:51 | XMS REPORT ---
Author Author Loren RAMIREZ Organization [facility] Address [address] [place] [address] Care Team Providers Care Body Welder Name Role Phone LAMONT RAMIREZ Unavailable PROBLEMS Type Condition ICD9-CM Code [id number] Code Onset Dates Condition S tatus SNOMED Code Problem Essential hypertension I10 Active 78936081 Problem Allergic rhinitis J30.9 Active 61 007356 Problem Hyperlipidemia E78.5 Active 35471 004 Problem Chronic obstructive pulmonary disease, unspecified COPD ty pe J44.9 Active 04404213 Problem 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 Active 20556241 Problem 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 Active 254194857 Problem GERD (gastroesophageal reflux disease) K21.9 Active 066002098 Problem Depression F32.9 Active 59347543 Problem Tobacco use Z72.0 Active 30672372 8 Problem Anxiety F41.9 Active 32296794 ALLERGIES No Known Allergies ENCOUNTERS Encounter Location Date Diagnosis [place] [address] [place] [id number] [address] [place] [address] Jul, [place] [address] [address] Jul, Right groin pain R10.31 and Hoarseness R49.0 [facility] [address] [place] [id number] [address] [place] [address] Jun, [facility] [address] [address] Jun, Chronic obstructive pulmonar y disease, unspecified COPD type J44.9 and Bronchitis J40 [facility] [address] [place] [id number] [address] [place] [address] Jun, Right groin pain R10.31 [facility] [address] Jun, Right groin pain R10.[address] [address] Jun, Right groin pain R10.31 ; Ch ronic obstructive pulmonary disease, unspecified COPD type J44.9 ; 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 ; Anxiety F41.9 ; Depression F32.9 and 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 [address] Feb, [address] [address] Jan, Hyperlipidemia 272.4 ; Adeno ma of right adrenal gland D35.01 and Hyperlipidemia E78.[address] [address] Jan, [address] [address] Dec, Adenoma of right adrenal gla nd D35.01 ; Essential hypertension I10 ; Hyperlipidemia E78.5 ; Calculus of gallbladder without cholecystitis without obstruction K80.20 ; Tobacco use Z72.0 and BMI 33.0-33.9,adult Z68.[address] [address] Nov, Essential hypertension I10 [address] [address] Nov, At high risk for kidney inju ry Z91.[address] [address] Nov, Right adrenal mass E27.9 and Calculus of gallbladder without cholecystitis without obstruction K80.20 [facility] [address] [place] [address] Sep, Musculoskeletal pain of righ t lower extremity M79.604 [facility] [address] [place] [id number] [address] [place] [address] Oct, Chronic obstructive pulmonar y disease, unspecified COPD type J44.9 [facility] [address] [place] [id number] [address] [place] [address] Oct, Tobacco abuse Z72.0 [facility] [address] [place] [id number] [address] [place] [address] Sep, [facility] [address] [place] [id number] [address] [place] [address] August, Bronchitis J40 [facility] [address] [address] Apr, Depression F32.9 ; Essential hypertension I10 ; Hyperlipidemia E78.5 ; Abdominal bloating R14.0 ; Irregular menstruation N92.6 ; Hoarseness or changing voice R49.9 ; Wheezing R06.2 and Tobacco abuse Z72.0 [place] [address] [place] [id number] [address] [place] [address] Nov, Major depressive disorder, r ecurrent episode, moderate 296.32 [place] [address] [place] [id number] [address] [place] [address] Nov, Hypertension 401.9 and Tobac co abuse 305.1 [place] [address] [place] [id number] [address] [place] [address] Nov, [facility] [address] [place] [id number] [address] [place] [address] Nov, [place] [address] [address] Nov, Major depressive disorder, r ecurrent episode, moderate 296.32 [facility] [address] [place] [id number] [address] [place] [address] Oct, [facility] [address] [address] Oct, Major depressive disorder, r ecurrent episode, moderate 296.32 [facility] [address] [id number] [address] [place] [address] Oct, [facility] [address] [id number] [address] [place] [address] Sep, Hyperlipidemia 272.4 ; Depre ssion 311 and Urinary incontinence 788.30 [facility] [address] [id number] [address] [place] [address] Jul, [facility] [address] [id number] [address] [place] [address] Jul, [facility] [address] [id number] [address] [place] [address] Jan, [facility] [address] [id number] [address] [place] [address] Jan, [facility] [address] [id number] [address] [place] [address] Jan, [facility] [address] [id number] [address] [place] [address] Jan, [facility] [address] [id number] [address] [place] [address] 18 Dec, 2013 [facility] [address] [id number] [address] [place] [address] 18 Dec, 2013 [facility] [address] [id number] [address] [place] [address] 17 Dec, 2013 [facility] [address] [id number] [address] [place] [address] 17 Dec, 2013 [facility] [address] [id number] [address] [place] [address] 16 Dec, 2013 [facility] [address] [id number] [address] [place] [address] 16 Dec, 2013 [facility] [address] [id number] [address] [place] [address], [place] [address] Oct, [facility] [address] [id number] [address] [place] [address], [place] [address] Oct, [facility] [address] [id number] [address] [place] [address], [place] [address] August, [facility] [address] [id number] [address] [place] [address], [place] [address] August, [facility] [address] [id number] [address] [place] [address], [place] [address] August, [facility] [address] [id number] [address] [place] [address], [place] [address] August, [facility] [address] [id number] [address] [place] [address], [place] [address] Jul, [facility] [address] [id number] [address] [place] [address], [place] [address] Jul, [facility] [address] [id number] [address] [place] [address], [place] [address] Jun, [facility] [address] [id number] [address] [place] [address], [place] [address] Jun, [facility] [address] [id number] [address] [place] [address], [place] [address] Mar, [facility] [address] [id number] [address] [place] [address], [place] [address] Mar, [facility] [address] [id number] [address] [place] [address], [place] [address] Jan, [facility] [address] [id number] [address] [place] [address], [place] [address] Oct, [facility] [address] [id number] [address] [place] [address], [place] [address] August, [facility] [address] [id number] [address] [place] [address], [place] [address] Jun, [facility] [address] [id number] [address] [place] [address], [place] [address] Apr, [facility] [address] [id number] [address] [place] [address], [place] [address] Mar, [facility] [address] [id number] [address] [place] [address], [place] [address] Mar, [facility] [address] [id number] [address] [place] [address], [place] [address] Mar, [facility] [address] [id number] [address] [place] [address], [place] [address] Mar, [facility] [address] [id number] [address] [place] [address], [place] [address] Nov, [facility] [address] [id number] [address] [place] [address], [place] [address] Nov, [facility] [address] [id number] [address] [place] [address], [place] [address] Mar, [facility] [address] [id number] [address] [place] [address], [place] [address] Mar, [facility] [address] [id number] [address] [place] [address], [place] [address] Oct, [facility] [address] [id number] [address] [place] [address], [place] [address] Oct, [facility] [address] [id number] [address] [place] [address], [place] [address] Sep, [facility] [address] [id number] [address] [place] [address], [place] [address] Apr, [facility] [address] [id number] [address] [place] [address], [place] [address] Feb, [facility] [address] [id number] [address] [place] [address], [place] [address] Jan, [facility] [address] [id number] [address] [place] [address], [place] [address] Jan, IMMUNIZATIONS No Known Immunizations SOCIAL HISTORY Never Assessed REASON FOR VISIT Blood pressure---[place],CCMA PLAN OF CARE Activity Details Follow Up 3 Months Reason:HTN VITAL SIGNS Height 67 in 2017-01-03 Weight 216.1 lbs 2017-01-03 Temperature 98.3 degrees Fahrenheit 2017-01-03 Heart Rate 80 bpm 2017-01-03 Respiratory Rate 20 2017-01-03 BMI 33.84 kg/m2 2017-01-03 Blood pressure systolic 124 mmHg 2017-01-03 Blood pressure diastolic 83 mmHg 2017-01-03 MEDICATIONS Medication Instructions Dosage Frequency Start Date End Date Duration S tatus Hydrochlorothiazide 25 MG Orally Once a day 1 tablet 24h Nov, 5 Active Dexamethasone 1 MG Orally One time between 11pm and 12 am n ight before labs 1 tablet Dec, 1 dose Active RESULTS No Results PROCEDURES Procedure Date Ordered Result Body Site SMOK TOB CESS CNSL; INTRMD ESTABLISHED 3-10 MIN Jan 03, 2017 INSTRUCTIONS MEDICATIONS ADMINISTERED No Known Medications [...]
--- OUTSIDE RECORDS SUMMARY | 2019-08-08 15:51 | XMS REPORT ---
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 Active 92053078 Problem 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 Active 504967329 Problem GERD (gastroesophageal reflux disease) K21.9 Active 873650050 Problem Depression F32.9 Active 04826260 Problem Tobacco use Z72.0 Active 40373431 8 Problem Anxiety F41.9 Active 16023117 ALLERGIES No Information ENCOUNTERS Encounter Location Date Diagnosis [place] [address] [address] Jul, Right groin pain R10.31 and Hoarseness R49.0 [place] [address] [place] [id number] [place] [address] Jun, [facility] [address] [address] Jun, Chronic obstructive pulmonar y disease, unspecified COPD type J44.9 and Bronchitis J40 [place] [address] [address] [place] [id number] [place] [address] Jun, Right groin pain R10.31 [facility] [address] [place] [id number] [place] [address] Jun, Right groin pain R10.[address] [address] Jun, 2018 Right groin pain R10.31 ; Ch ronic obstructive pulmonary disease, unspecified COPD type J44.9 ; 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 ; Anxiety F41.9 ; Depression F32.9 and 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 [address] Feb, [address] [address] Jan, Hyperlipidemia 272.4 ; Adeno ma of right adrenal gland D35.01 and Hyperlipidemia E78.[address] [address] Jan, [address] [address] Dec, Adenoma of right adrenal gla nd D35.01 ; Essential hypertension I10 ; Hyperlipidemia E78.5 ; Calculus of gallbladder without cholecystitis without obstruction K80.20 ; Tobacco use Z72.0 and BMI 33.0-33.9,adult Z68.[address] [address] Nov, Essential hypertension I10 [address] [address] Nov, At high risk for kidney inju ry Z91.[address] [address] Nov, Right adrenal mass E27.9 and Calculus of gallbladder without cholecystitis without obstruction K80.20 [facility] [address] [place] [address] Sep, Musculoskeletal pain of righ t lower extremity M79.[address] [address] Oct, Chronic obstructive pulmonar y disease, unspecified COPD type J44.9 [facility] [address] [place] [id number] [place] [address] Oct, Tobacco abuse Z72.0 [facility] [address] [place] [id number] [place] [address] Sep, [facility] [address] [address] August, Bronchitis J40 [facility] [address] [address] Apr, Depression F32.9 ; Essential hypertension I10 ; Hyperlipidemia E78.5 ; Abdominal bloating R14.0 ; Irregular menstruation N92.6 ; Hoarseness or changing voice R49.9 ; Wheezing R06.2 and Tobacco abuse Z72.0 [facility] [address] [address] Nov, Major depressive disorder, r ecurrent episode, moderate 296.32 [facility] [address] [address] Nov, Hypertension 401.9 and Tobac co abuse 305.1 [facility] [address] [place] [id number] [place] [address] Nov, [place] [address] [place] [id number] [place] [address] Nov, [facility] [address] [place] [id number] [place] [address] Nov, Major depressive disorder, r ecurrent episode, moderate 296.32 [place] [address] [address] [place] [id number] [place] [address] Oct, [facility] [address] [place] [id number] [place] [address] Oct, Major depressive disorder, r ecurrent episode, moderate 296.32 [facility] [address] [id number] [address] [place] [address] 02 Oct, [address] [facility] [address] [id number] [address] [place] [address] 04 Sep, 2014 Hyperlipidemia 272.4 ; Depre ssion 311 and Urinary incontinence 788.30 [facility] [address] [id number] [address] [place] [address], [place] [address] 14 Jul, 2014 [facility] [address] [id number] [address] [place] [address] Jul, [facility] [address] [id number] [address] [place] [address], [place] [address] Jan, [facility] [address] [id number] [address] [place] [address] Jan, [facility] [address] [id number] [address] [place] [address] Jan, [facility] [address] [id number] [address] [place] [address] Jan, [facility] [address] [id number] [address] [place] [address] 18 Dec, [address] [facility] [address] [id number] [address] [place] [address] 18 Dec, [address] [facility] [address] [id number] [address] [place] [address] 17 Dec, 2013 [facility] [address] [id number] [address] [place] [id number] 17 Dec, [address] [facility] [address] [id number] [address] [place] [address] 16 Dec, 2013 [facility] [address] [id number] [address] [place] [phone] 16 Dec, 2013 [facility] [address] [id number] [address] [place] [address] 14 Oct, [address] [facility] [address] [id number] [address] [place] [address], [place] [address] Oct, [facility] [address] [id number] [address] [place] [address], [place] [address] August, [facility] [address] [id number] [address] [place] [address], [place] [address] August, [facility] [address] [id number] [address] [place] [address], [place] [address] August, [facility] [address] [id number] [address] [place] [address], [place] [address] August, [facility] [address] [id number] [address] [place] [address], [place] [address] Jul, [facility] [address] [id number] [address] [place] [address], [place] [address] Jul, [facility] [address] [id number] [address] [place] [address], [place] [address] Jun, [facility] [address] [id number] [address] [place] [address], [place] [address] Jun, [facility] [address] [id number] [address] [place] [address], [place] [address] Mar, [facility] [address] [id number] [address] [place] [address], [place] [address] Mar, [facility] [address] [id number] [address] [place] [address], [place] [address] Jan, [facility] [address] [id number] [address] [place] [address], [place] [address] Oct, [facility] [address] [id number] [address] [place] [address], [place] [address] August, [facility] [address] [id number] [address] [place] [address], [place] [address] Jun, [facility] [address] [id number] [address] [place] [address], [place] [address] Apr, [facility] [address] [id number] [address] [place] [address] Mar, [facility] [address] [id number] [address] [place] [phone] Mar, [facility] [address] [id number] [address] [place] [phone] Mar, [facility] [address] [id number] [address] [place] [phone] Mar, [facility] [address] [id number] [address] [place] [address] Nov, [facility] [address] [id number] [address] [place] [address] Nov, [facility] [address] [id number] [address] [place] [address] Mar, [facility] [address] [id number] [address] [place] [phone] Mar, [facility] [address] [id number] [address] [place] [address] Oct, [facility] [address] [id number] [address] [place] [address] Oct, [facility] [address] [id number] [address] [place] [address] Sep, [facility] [address] [id number] [address] [place] [address] Apr, [facility] [address] [id number] [address] [place] [address] Feb, [facility] [address] [id number] [address] [place] [address] Jan, [facility] [address] [id number] [address] [place] [address] Jan, IMMUNIZATIONS No Known Immunizations SOCIAL HISTORY Never Assessed REASON FOR VISIT Lab orders for MRI PLAN OF CARE VITAL SIGNS MEDICATIONS No Known Medications RESULTS Name Result Date Reference Range BUN 2016-12-24 BUN CREATININE, SERUM 2016-12-24 Creatinine, Serum eGFR If NonAfricn Am eGFR If Africn Am PROCEDURES No Known procedures INSTRUCTIONS MEDICATIONS ADMINISTERED No Known Medications MEDICAL (GENERAL) HISTORY Type Description Date Medical History hyperlipidemia Medical History anxiety Medical History Allergies Medical History Calculus of gallbladder with out cholecystitis without obstruction Medical History Calculus of gallbladder with out cholecystitis without obstruction Surgical History heart cath [facility]'s- normal per record review 05/2009 Surgical History breast biopsy/benign mass removed 1 Surgical History section x 1 Surgical History bladder surgery 11/2014 Surgical History Gallbladder Removal 03/2017 Hospitalization History Surgery
--- OUTSIDE RECORDS SUMMARY | 2019-08-08 15:51 | XMS REPORT | Continuity of Care Document ---
Demographics Preferred Language Unknown Marital Status Unknown Restorationist Affiliation Unknown Race Unknown Ethnic Group Unknown Author Organization Unknown Address Unknown Phone Unavailable Allergies Active Description Code Type Severity Reaction Onset Reported/Identified Relationship to Patient Clinical Status Yes NKANo Known Allergies NKA Miscellaneous Allergy Mild N/A 06/12/2009 Yes No Known Drug Allergies [id number] Drug Allergy Unknown N/A 05/06/2019 Medications There is no data. Problems Date Dx Coded Attending Type Code Diagnosis Diagnosed By 03/20/1099 FREDO DAVIS, RENEE Chavez Ot E27.9 DISORDER OF ADRENAL GLAND, UNSPECIFIED 01/08/2010 SONNY MORENO DO K 272.4 OTHER AND UNSPECIFIED HYPERLIPIDEMIA 01/08/2010 TIFFANIE GLASS SONNY K 305.1 NONDEPENDENT TOBACCO USE DISORDER 01/08/2010 TIFFANIE GLASS SONNY K 414.00 CORONARY ATHEROSCLEROSIS OF UNSPECIFIED TYPE OF VESSEL [place] 01/08/2010 WENDI MORENO DOA K 627.8 OTHER SPECIFIED MENOPAUSAL AND POSTMENOPAUSAL DISORDERS 01/08/2010 WENDI MORENO DOA K 272.4 OTHER AND UNSPECIFIED HYPERLIPIDEMIA 01/08/2010 TIFFANIE GLASS SONNY K 305.1 NONDEPENDENT TOBACCO USE DISORDER 01/08/2010 TIFFANIE GLASS SONNY K 414.00 CORONARY ATHEROSCLEROSIS OF UNSPECIFIED TYPE OF VESSEL [place] OR [place] 01/08/2010 TIFFANIE GLASS SONNY K 627.8 OTHER SPECIFIED MENOPAUSAL AND POSTMENOPAUSAL DISORDERS 01/08/2010 WENDI MORENO DOA K 272.4 OTHER AND UNSPECIFIED HYPERLIPIDEMIA 01/08/2010 TIFFANIE GLASS SONNY K 305.1 NONDEPENDENT TOBACCO USE DISORDER 01/08/2010 TIFFANIE LGASS SONNY K 414.00 CORONARY ATHEROSCLEROSIS OF UNSPECIFIED TYPE OF VESSEL [place] 01/08/2010 TIFFANIE GLASS SONNY K 627.8 OTHER SPECIFIED MENOPAUSAL AND POSTMENOPAUSAL DISORDERS 01/08/2010 WENDI MORENO DOA K 272.4 OTHER AND UNSPECIFIED HYPERLIPIDEMIA 01/08/2010 TIFFANIE GLASS SONNY K 305.1 NONDEPENDENT TOBACCO USE DISORDER 01/08/2010 MORENO DO SONNY K 414.00 CORONARY ATHEROSCLEROSIS OF UNSPECIFIED TYPE OF VESSEL [place] 01/08/2010 WENDI MORENO DOA K 627.8 OTHER SPECIFIED MENOPAUSAL AND POSTMENOPAUSAL DISORDERS 01/09/2010 MORENO DO, SONNY K V74.1 SCREENING EXAMINATION FOR PULMONARY TUBERCULOSIS 01/09/2010 MORENO DO, SONNY K V74.1 SCREENING EXAMINATION FOR PULMONARY TUBERCULOSIS 01/09/2010 MORENO DO, SONNY K V74.1 SCREENING EXAMINATION FOR PULMONARY TUBERCULOSIS 01/09/2010 MORENO DO, SONNY K V74.1 SCREENING EXAMINATION FOR PULMONARY TUBERCULOSIS 01/18/2010 MORENO DO, SONNY K V70.5 PREEMPLOYMENT/PRESCHOOL EXAM 01/18/2010 MORENO DO, SONNY K V70.5 PREEMPLOYMENT/PRESCHOOL EXAM 01/18/2010 MORENO DO, SONNY K V70.5 PREEMPLOYMENT/PRESCHOOL EXAM 01/18/2010 MORENO DO, SONNY K V70.5 PREEMPLOYMENT/PRESCHOOL EXAM 02/15/2010 MORENO DO, SONNY K 610.0 SOLITARY CYST OF BREAST 02/15/2010 MORENO DO, SONNY K V72.31 ROUTINE GYNECOLOGICAL EXAMINATION 02/15/2010 MORENO DO, SONNY K 610.0 SOLITARY CYST OF BREAST 02/15/2010 MORENO DO, SONNY K V72.31 ROUTINE GYNECOLOGICAL EXAMINATION 02/15/2010 MORENO DO, SONNY K 610.0 SOLITARY CYST OF BREAST 02/15/2010 MORENO DO, SONNY K V72.31 ROUTINE GYNECOLOGICAL EXAMINATION 02/15/2010 MORENO DO, SONNY K 610.0 SOLITARY CYST OF BREAST 02/15/2010 MORENO DO, SONNY K V72.31 ROUTINE GYNECOLOGICAL EXAMINATION 05/03/2010 MORENO DO, SONNY K 296.90 MOOD DISORDER 05/03/2010 MORENO DO, SONNY K 788.30 INCONTINENCE/ENURESIS NOS 05/03/2010 MORENO DO, SONNY K 788.63 URINARY URGENCY 05/03/2010 MORENO DO, SONNY K 296.90 MOOD DISORDER 05/03/2010 MORENO DO, SONNY K 788.30 INCONTINENCE/ENURESIS NOS 05/03/2010 MORENO DO, SONNY K 788.63 URINARY URGENCY 05/03/2010 MORENO DO, SONNY K 296.90 MOOD DISORDER 05/03/2010 MORENO DO, SONNY K 788.30 INCONTINENCE/ENURESIS NOS 05/03/2010 MORENO DO, SONNY K 788.63 URINARY URGENCY 05/03/2010 MORENO DO, SONNY K 296.90 MOOD DISORDER 05/03/2010 MORENO DO, SONNY K 788.30 INCONTINENCE/ENURESIS NOS 05/03/2010 SONNY MORENO DO 788.63 URINARY URGENCY 06/11/2010 WENDI MORENO DOA K 077.99 UNSPECIFIED DISEASES OF CONJUNCTIVA DUE TO VIRUSES 06/11/2010 WENDI MORENO DOA K 077.99 UNSPECIFIED DISEASES OF CONJUNCTIVA DUE TO VIRUSES 06/11/2010 WENDI MORENO DOA K 077.99 UNSPECIFIED DISEASES OF CONJUNCTIVA DUE TO VIRUSES 06/11/2010 WENDI MORENO DOA K 077.99 UNSPECIFIED DISEASES OF CON[place]UNCT[place]A DUE TO VIRUSES 10/05/2010 WENDI MORENO DOA K 782.0 DISTURBANCE OF SKIN SENSATION 10/05/2010 WENDI MORENO DOA K V68.1 ISSUE OF REPEAT PRESCRIPTIONS 10/05/2010 WENDI MORENO DOA K 782.0 DISTURBANCE OF SKIN SENSATION 10/05/2010 WENDI MORENO DOA K V68.1 ISSUE OF REPEAT PRESCRIPTIONS 10/05/2010 WENDI MORENO DOA K 782.0 DISTURBANCE OF SKIN SENSATION 10/05/2010 SONNY MORENO DO V68.1 ISSUE OF REPEAT PRESCRIPTIONS 10/05/2010 WENDI MORENO DOA K 782.0 DISTURBANCE OF SKIN SENSATION 10/05/2010 WENDI MORENO DOA K V68.1 ISSUE OF REPEAT PRESCRIPTIONS 10/29/2010 SONNY MORENO DO 214.1 LIPOMA OF OTHER SKIN AND SUBCUTANEOUS TISSUE 10/29/2010 SONNY MORENO DO K 214.1 LIPOMA OF OTHER SKIN AND SUBCUTANEOUS TISSUE 10/29/2010 SONNY MORENO DO K 214.1 LIPOMA OF OTHER SKIN AND SUBCUTANEOUS TISSUE 10/29/2010 SONNY MORENO DO 214.1 LIPOMA OF OTHER SKIN AND SUBCUTANEOUS TISSUE 11/06/2010 SONNY MORENO DO V58.32 ENCOUNTER FOR REMOVAL OF SUTURES 11/06/2010 SONNY MORENO DO V58.32 ENCOUNTER FOR REMOVAL OF SUTURES 11/06/2010 SONNY MORENO DO V58.32 ENCOUNTER FOR REMOVAL OF SUTURES 11/06/2010 SONNY MORENO DO V58.32 ENCOUNTER FOR REMOVAL OF SUTURES 04/10/2011 SONNY MORENO DO 461.9 SINUSITIS ACUTE 04/10/2011 SONNY MORENO DO 461.9 SINUSITIS ACUTE 04/10/2011 SONNY MORENO DO 461.9 SINUSITIS ACUTE 04/10/2011 SONNY MORENO DO K 461.9 SINUSITIS ACUTE 12/12/2011 MORENO DO SONNY K 300.00 ANXIETY STATE UNSPECIFIED 12/12/2011 MORENO DO SONNY K 530.81 GERD 12/12/2011 MORENO DO SONNY K 553.3 DIAPHRAGMATIC HERNIA WITHOUT OBSTRUCTION OR GANGRENE 12/12/2011 MORENO DO SONNY K 780.79 OTHER MALAISE AND FATIGUE 12/12/2011 MORENO DO SONNY K 787.3 FLATULENCE ERUCTATION AND GAS PAIN 12/12/2011 MORENO DO SONNY K 789.00 ABDOMINAL PAIN UNSPECIFIED SITE 12/12/2011 MORENO DO SONNY K V58.69 LONG-TERM (CURRENT) USE OF OTHER MEDICATIONS 12/12/2011 TIFFANIE GLASS SONNY K V65.42 COUNSELING - SMOKING CESSATION 12/12/2011 MORENO DO SONNY K V70.0 ROUTINE GENERAL MEDICAL EXAMINATION AT A HEALTH CARE FACILITY 12/12/2011 TIFFANIE GLASS SONNY K 300.00 ANXIETY STATE UNSPECIFIED 12/12/2011 TIFFANIE GLASS SONNY K 530.81 GERD 12/12/2011 MORENO DO SONNY K 553.3 DIAPHRAGMATIC HERNIA WITHOUT OBSTRUCTION OR GANGRENE 12/12/2011 MORENO DO SONNY K 780.79 OTHER MALAISE AND FATIGUE 12/12/2011 MORENO DO SONNY K 787.3 FLATULENCE ERUCTATION AND GAS PAIN 12/12/2011 MORENO DO SONNY K 789.00 ABDOMINAL PAIN UNSPECIFIED SITE 12/12/2011 MORENO DO SONNY K V58.69 LONG-TERM (CURRENT) USE OF OTHER MEDICATIONS 12/12/2011 TIFFANIE GLASS SONNY K V65.42 COUNSELING - SMOKING CESSATION 12/12/2011 MORENO DO SONNY K V70.0 ROUTINE GENERAL MEDICAL EXAMINATION AT A HEALTH CARE FACILITY 12/12/2011 MORENO DO SONNY K 300.00 ANXIETY STATE UNSPECIFIED 12/12/2011 MORENO DO SONNY K 530.81 GERD 12/12/2011 MORENO DO SONNY K 553.3 DIAPHRAGMATIC HERNIA WITHOUT OBSTRUCTION OR GANGRENE 12/12/2011 MORENO DO SONNY K 780.79 OTHER MALAISE AND FATIGUE 12/12/2011 MORENO DO SONNY K 787.3 FLATULENCE ERUCTATION AND GAS PAIN 12/12/2011 MORENO DO, SONNY K 789.00 ABDOMINAL PAIN UNSPECIFIED SITE 12/12/2011 WENDI MORENO DOA K V58.69 LONG-TERM (CURRENT) USE OF OTHER MEDICATIONS 12/12/2011 WENDI MORENO DOA K V65.42 COUNSELING - SMOKING CESSATION 12/12/2011 TIFFANIE GLASS SONNY K V70.0 ROUTINE GENERAL MEDICAL EXAMINATION AT A HEALTH CARE FACILITY 12/12/2011 WENDI MORENO DOA K 300.00 ANXIETY STATE UNSPECIFIED 12/12/2011 SONNY MORENO DO K 530.81 GERD 12/12/2011 WENDI MORENO DOA K 553.3 DIAPHRAGMATIC HERNIA WITHOUT OBSTRUCTION OR GANGRENE 12/12/2011 TIFFANIE GLASS SONNY K 780.79 OTHER MALAISE AND FATIGUE 12/12/2011 WENDI MORENO DOA K 787.3 FLATULENCE ERUCTATION AND GAS PAIN 12/12/2011 WENDI MORENO DOA K 789.00 ABDOMINAL PAIN UNSPECIFIED SITE 12/12/2011 WENDI MORENO DOA K V58.69 LONG-TERM (CURRENT) USE OF OTHER MEDICATIONS 12/12/2011 WENDI MORENO DOA K V65.42 COUNSELING - SMOKING CESSATION 12/12/2011 WENDI MORENO DOA K V70.0 ROUTINE GENERAL MEDICAL EXAMINATION AT A HEALTH CARE FACILITY 04/20/2012 WENDI MORENO DOA K 784.0 HEADACHE 04/20/2012 WENDI MORENO DOA K 784.0 HEADACHE 04/20/2012 MORENO DO SONNY K 784.0 HEADACHE 04/20/2012 MORENO WENDI GLASSA K 784.0 HEADACHE 08/27/2012 SONNY MORENO DO K 719.41 PAIN IN JOINT INVOLVING SHOULDER REGION 08/27/2012 SONNY MORENO DO K 719.41 PAIN IN JOINT INVOLVING SHOULDER REGION 08/27/2012 WENDI MORENO DOA K 719.41 PAIN IN JOINT INVOLVING SHOULDER REGION 08/06/2013 SONNY MORENO DO K 626.4 IRREGULAR MENSTRUAL CYCLE 08/06/2013 WNEDI MORENO DOA K 626.4 IRREGULAR MENSTRUAL CYCLE 01/04/2014 WENDI MORENO DOA K 338.29 OTHER CHRONIC PAIN 01/04/2014 WENDI MORENO DOA K 784.91 POSTNASAL DRIP 07/27/2014 Ot 625.4 07/27/2014 Ot 701.2 07/27/2014 Ot 704.1 07/27/2014 Ot 780.79 07/27/2014 Ot V17.3 07/27/2014 Ot V18.0 07/27/2014 EDWIGE BETANCUR, SERINA M Ot 626 .4 07/27/2014 GIBBONS PA, SERINA M Ot 789.00 07/27/2014 GIBBONS PA, SERINA M Ot 793 .5 10/03/2014 GIBBONS PA, SERINA M Ot 626 .4 10/03/2014 GIBBONS PA, SERINA M Ot 789.00 10/03/2014 GIBBONS PA, SERINA M Ot 793 .5 10/13/2014 GIBBONS PA, SERINA M Ot 626 .4 10/13/2014 GIBBONS PA, SERINA M Ot 789.00 10/13/2014 GIBBONS PA, SERINA M Ot 793 .5 11/23/2014 GIBBONS PA, SERINA M Ot 626 .4 11/23/2014 EDWIGE PA, SERINA M Ot 789.00 11/23/2014 EDWIGE BETANCUR, SERINA M Ot 793 .5 12/02/2014 TIFFANIE PÉREZ DO Ot 599.5 PROLAPSE URETHRAL MUCOSA 12/02/2014 TIFFANIE PÉREZ DO Ot 618.2 UTEROVAG PROLAPS-INCOMPL 12/02/2014 TIFFANIE PÉREZ DO Ot 788.33 INCONTINENCE - MIXED (MALE/FEMALE) 09/11/2015 SERINA NEGRON Ot 626 .4 IRREGULAR MENSTRUATION 09/11/2015 SERINA NEGRON Ot 789.00 ABDOMINAL PAIN, UNSPECIFIED SITE 09/11/2015 SERINA NEGRON Ot 793 .5 NOSP (ABN) FINDINGS ON RADIOLOGICAL OT 09/11/2015 TIFFANIE PÉREZ DO Ot 618.01 CYSTOCELE, MIDLINE 09/11/2015 TIFFANIE PÉREZ DO Ot 618.04 RECTOCELE 09/11/2015 TIFFANIE PÉREZ DO Ot 625.6 FEM STRESS INCONTINENCE 09/11/2015 TIFFANIE PÉREZ DO Ot V72.63 PRE-PROCEDURAL LABORATORY EXAMINATION 09/11/2015 TIFFANIE PÉREZ DO Ot V74.8 SCREEN-BACTERIAL DIS NEC 09/11/2015 SERINA NEGRON Ot 626 .4 IRREGULAR MENSTRUATION 09/11/2015 SERINA NEGRON Ot 789.00 ABDOMINAL PAIN, UNSPECIFIED SITE 09/11/2015 SERINA NEGRON Ot 793 .5 NOSP (ABN) FINDINGS ON RADIOLOGICAL OT 09/11/2015 TIFFANIE PÉREZ DO Ot 618.01 CYSTOCELE, MIDLINE 09/11/2015 ELISA GLASS, TIFFANIE S Ot 618.04 RECTOCELE 09/11/2015 TIFFANIE PÉREZ DO Ot 625.6 FEM STRESS INCONTINENCE 09/11/2015 TIFFANIE PÉREZ DO Ot V72.63 PRE-PROCEDURAL LABORATORY EXAMINATION 09/11/2015 TIFFANIE PÉREZ DO Ot V74.8 SCREEN-BACTERIAL DIS NEC 10/03/2016 GHAZAL GAUTHIER APRN Ot K21 .9 GASTRO-ESOPHAGEAL REFLUX DISEASE WITHOUT 10/03/2016 GHAZAL GAUTHIER APRN Ot K80.20 CALCULUS OF GALLBLADDER W/O CHOLECYSTITI 10/03/2016 GHAZAL GAUTHIER APRN Ot R10.84 GENERALIZED ABDOMINAL PAIN 10/03/2016 GHAZAL GAUTHIER APRN Ot Z87.19 PERSONAL HISTORY OF OTHER DISEASES OF 10/07/2016 GHAZAL GAUTHIER APRN Ot K21 .9 GASTRO-ESOPHAGEAL REFLUX DISEASE WITHOUT 10/07/2016 GHAZAL GAUTHIER GUEST RELATIONS RECEPTIONIST Ot K80.20 CALCULUS OF GALLBLADDER W/O CHOLECYSTITI 10/07/2016 GHAZAL GAUTHIER APRN Ot R10.84 GENERALIZED ABDOMINAL PAIN 10/07/2016 GHAZAL GAUTHIER APRN Ot Z87.19 PERSONAL HISTORY OF OTHER DISEASES OF 10/29/2016 SERINA NEGRON Ot 626 .4 IRREGULAR MENSTRUATION 10/29/2016 SERINA NEGRON Ot 789.00 ABDOMINAL PAIN, UNSPECIFIED SITE 10/29/2016 SERINA NEGRON Ot 793 .5 NOSP (ABN) FINDINGS ON RADIOLOGICAL OT 10/29/2016 TIFFANIE PÉREZ DO S Ot 618.01 CYSTOCELE, MIDLINE 10/29/2016 TIFFANIE PÉREZ DO Ot 618.04 RECTOCELE 10/29/2016 ELISA GLASS TIFFANIE Angeles Ot 625.6 FEM STRESS INCONTINENCE 10/29/2016 TIFFANIE PÉREZ DO Ot V72.63 PRE-PROCEDURAL LABORATORY EXAMINATION 10/29/2016 TIFFANIE PÉREZ DO Ot V74.8 SCREEN-BACTERIAL DIS NEC 10/29/2016 KATHLEEN IRVING DO Ot Z01.818 ENCOUNTER FOR OTHER PREPROCEDURAL EXAMIN 12/11/2016 SERINA NEGRON Ot 626 .4 IRREGULAR MENSTRUATION 12/11/2016 SERINA NEGRON Ot 789.00 ABDOMINAL PAIN, UNSPECIFIED SITE 12/11/2016 SERINA NEGRON Ot 793 .5 NOSP (ABN) FINDINGS ON RADIOLOGICAL OT 12/11/2016 FENECH DO, TIFFANIE S Ot 618.01 CYSTOCELE, MIDLINE 12/11/2016 FENECH DO, TIFFANIE S Ot 618.04 RECTOCELE 12/11/2016 FENECH DO, TIFFANIE S Ot 625.6 FEM STRESS INCONTINENCE 12/11/2016 FENECH DO, TIFFANIE S Ot V72.63 PRE-PROCEDURAL LABORATORY EXAMINATION 12/11/2016 FENECH DO, TIFFANIE S Ot V74.8 SCREEN-BACTERIAL DIS NEC 12/11/2016 KATHLEEN IRVING DO Ot Z01.818 ENCOUNTER FOR OTHER PREPROCEDURAL EXAMIN 12/12/2016 SERINA NEGRON Ot 626 .4 IRREGULAR MENSTRUATION 12/12/2016 SERINA NEGRON Ot 789.00 ABDOMINAL PAIN, UNSPECIFIED SITE 12/12/2016 SERINA NEGRON Ot 793 .5 NOSP (ABN) FINDINGS ON RADIOLOGICAL OT 12/12/2016 FENECH DO, TIFFANIE S Ot 618.01 CYSTOCELE, MIDLINE 12/12/2016 FENECH DO, TIFFANIE S Ot 618.04 RECTOCELE 12/12/2016 FENECH DO, TIFFANIE S Ot 625.6 FEM STRESS INCONTINENCE 12/12/2016 FENECH DO, TIFFANIE S Ot V72.63 PRE-PROCEDURAL LABORATORY EXAMINATION 12/12/2016 FENECH DO, TIFFANIE S Ot V74.8 SCREEN-BACTERIAL DIS NEC 12/12/2016 KATHLEEN IRVING DO Ot Z01.818 ENCOUNTER FOR OTHER PREPROCEDURAL EXAMIN 12/13/2016 FREDO DAVIS, RENEE Chavez Ot E27.9 DISORDER OF ADRENAL GLAND, UNSPECIFIED 12/17/2016 SERINA NEGRON Ot 626 .4 IRREGULAR MENSTRUATION 12/17/2016 SERINA NEGRON Ot 789.00 ABDOMINAL PAIN, UNSPECIFIED SITE 12/17/2016 SERINA NEGRON Ot 793 .5 NOSP (ABN) FINDINGS ON RADIOLOGICAL OT 12/17/2016 FENECH DO, TIFFANIE S Ot 618.01 CYSTOCELE, MIDLINE 12/17/2016 TIFFANIE PÉREZ DO Ot 618.04 RECTOCELE 12/17/2016 TIFFANIE PÉREZ DO Ot 625.6 FEM STRESS INCONTINENCE 12/17/2016 TIFFANIE PÉREZ DO Ot V72.63 PRE-PROCEDURAL LABORATORY EXAMINATION 12/17/2016 TIFFANIE PÉREZ DO Ot V74.8 SCREEN-BACTERIAL DIS NEC 12/17/2016 KATHLEEN IRVING DO Ot Z01.818 ENCOUNTER FOR OTHER PREPROCEDURAL EXAMIN 12/17/2016 FREDO DAVIS, RENEE Chavez Ot E27.9 DISORDER OF ADRENAL GLAND, UNSPECIFIED 12/17/2016 RENEE YOO MD Ot E27.9 DISORDER OF ADRENAL GLAND, UNSPECIFIED 12/19/2016 SERINA NEGRON Ot 626 .4 IRREGULAR MENSTRUATION 12/19/2016 SERINA NEGRON Ot 789.00 ABDOMINAL PAIN, UNSPECIFIED SITE 12/19/2016 SERINA NEGRON Ot 793 .5 NOSP (ABN) FINDINGS ON RADIOLOGICAL OT 12/19/2016 TIFFANIE PÉREZ DO Ot 618.01 CYSTOCELE, MIDLINE 12/19/2016 TIFFANIE PÉREZ DO Ot 618.04 RECTOCELE 12/19/2016 TIFFANIE PÉREZ DO Ot 625.6 FEM STRESS INCONTINENCE 12/19/2016 TIFFANIE PÉREZ DO Ot V72.63 PRE-PROCEDURAL LABORATORY EXAMINATION 12/19/2016 TIFFANIE PÉREZ DO Ot V74.8 SCREEN-BACTERIAL DIS NEC 12/19/2016 KATHLEEN IRVING DO Ot Z01.818 ENCOUNTER FOR OTHER PREPROCEDURAL EXAMIN 12/19/2016 RENEE YOO MD Ot E27.9 DISORDER OF ADRENAL GLAND, UNSPECIFIED 12/25/2016 LAMONT RAMIREZ MD Ot E27 .9 DISORDER OF ADRENAL GLAND, UNSPECIFIED 12/25/2016 LAMONT RAMIREZ MD Ot K76 .0 FATTY (CHANGE OF) LIVER, NOT ELSEWHERE C 12/25/2016 LAMONT RAMIREZ MD Ot K80.20 CALCULUS OF GALLBLADDER W/O CHOLECYSTITI 12/25/2016 LAMONT RAMIREZ MD Ot Z91.89 OTH PERSONAL RISK FACTORS, NOT ELSEWHERE 12/29/2016 RENEE YOO MD Ot E27.9 DISORDER OF ADRENAL GLAND, UNSPECIFIED 01/03/2017 LAMONT RAMIREZ MD Ot E27 .9 DISORDER OF ADRENAL GLAND, UNSPECIFIED 01/03/2017 LAMONT RAMIREZ MD Ot K76 .0 FATTY (CHANGE OF) LIVER, NOT ELSEWHERE C 01/03/2017 LAMONT RAMIREZ MD Ot K80.20 CALCULUS OF GALLBLADDER W/O CHOLECYSTITI 01/03/2017 LAMONT RAMIREZ MD Ot Z91.89 OTH PERSONAL RISK FACTORS, NOT ELSEWHERE 01/15/2017 SERINA NEGRON Ot 626 .4 IRREGULAR MENSTRUATION 01/15/2017 SERINA NEGRON Ot 789.00 ABDOMINAL PAIN, UNSPECIFIED SITE 01/15/2017 SERINA NEGRON Ot 793 .5 NOSP (ABN) FINDINGS ON RADIOLOGICAL OT 01/15/2017 TIFFANIE PÉREZ DO Ot 618.01 CYSTOCELE, MIDLINE 01/15/2017 TIFFANIE PÉREZ DO Ot 618.04 RECTOCELE 01/15/2017 TIFFANIE PÉREZ DO Ot 625.6 FEM STRESS INCONTINENCE 01/15/2017 TIFFANIE PÉREZ DO Ot V72.63 PRE-PROCEDURAL LABORATORY EXAMINATION 01/15/2017 TIFFANIE PÉREZ DO Ot V74.8 SCREEN-BACTERIAL DIS NEC 01/15/2017 KATHLEEN IRVING DO Ot Z01.818 ENCOUNTER FOR OTHER PREPROCEDURAL EXAMIN 01/15/2017 LAMONT RAMIREZ MD Ot E27 .9 DISORDER OF ADRENAL GLAND, UNSPECIFIED 01/15/2017 LAMONT RAMIREZ MD Ot K76 .0 FATTY (CHANGE OF) LIVER, NOT ELSEWHERE C 01/15/2017 LAMONT RAMIREZ MD Ot K80.20 CALCULUS OF GALLBLADDER W/O CHOLECYSTITI 01/15/2017 LAMONT RAMIREZ MD Ot Z91.89 OTH PERSONAL RISK FACTORS, NOT ELSEWHERE 01/21/2017 RENEE YOO MD Ot K80.20 CALCULUS OF GALLBLADDER W/O CHOLECYSTITI 01/21/2017 RENEE YOO MD Ot Z01.818 ENCOUNTER FOR OTHER PREPROCEDURAL EXAMIN 03/19/2017 RENEE YOO MD Ot K80.20 CALCULUS OF GALLBLADDER W/O CHOLECYSTITI 03/19/2017 RENEE YOO MD Ot Z01.818 ENCOUNTER FOR OTHER PREPROCEDURAL EXAMIN 03/26/2017 RENEE YOO MD Ot E66.9 OBESITY, UNSPECIFIED 03/26/2017 RENEE YOO MD Ot F17.210 NICOTINE DEPENDENCE, CIGARETTES, UNCOMPL 03/26/2017 RENEE YOO MD Ot F41.9 ANXIETY DISORDER, UNSPECIFIED 03/26/2017 RENEE YOO MD Ot I1 0 ESSENTIAL (PRIMARY) HYPERTENSION 03/26/2017 RENEE YOO MD Ot J44.9 CHRONIC OBSTRUCTIVE PULMONARY DISEASE, U 03/26/2017 RENEE YOO MD Ot K80.10 CALCULUS OF GALLBLADDER W CHRONIC CHOLEC 03/26/2017 RENEE YOO MD Ot Z68.34 BODY MASS INDEX (BMI) 34.0-34.9, ADULT 03/26/2017 RENEE YOO MD Ot Z79.899 OTHER PRISON (CURRENT) DRUG THERAPY 03/31/2017 RENEE YOO MD Ot E66.9 OBESITY, UNSPECIFIED 03/31/2017 RENEE YOO MD Ot F17.210 NICOTINE DEPENDENCE, CIGARETTES, UNCOMPL 03/31/2017 RENEE YOO MD Ot F41.9 ANXIETY DISORDER, UNSPECIFIED 03/31/2017 RENEE YOO MD Ot I1 0 ESSENTIAL (PRIMARY) HYPERTENSION 03/31/2017 RENEE YOO MD Ot J44.9 CHRONIC OBSTRUCTIVE PULMONARY DISEASE, U 03/31/2017 RENEE YOO MD Ot K80.10 CALCULUS OF GALLBLADDER W CHRONIC CHOLEC 03/31/2017 RENEE YOO MD Ot Z68.34 BODY MASS INDEX (BMI) 34.0-34.9, ADULT 03/31/2017 RENEE YOO MD Ot Z79.899 OTHER PRISON (CURRENT) DRUG THERAPY 04/25/2017 RENEE YOO MD Ot E66.9 OBESITY, UNSPECIFIED 04/25/2017 RENEE YOO MD Ot F17.210 NICOTINE DEPENDENCE, CIGARETTES, UNCOMPL 04/25/2017 RENEE YOO MD Ot F41.9 ANXIETY DISORDER, UNSPECIFIED 04/25/2017 RENEE YOO MD Ot I1 0 ESSENTIAL (PRIMARY) HYPERTENSION 04/25/2017 RENEE YOO MD, Ot J44.9 CHRONIC OBSTRUCTIVE PULMONARY DISEASE, U 04/25/2017 FREDO DAVIS, RENEE Chavez Ot K80.10 CALCULUS OF GALLBLADDER W CHRONIC CHOLEC 04/25/2017 RENEE YOO MD, Ot Z68.34 BODY MASS INDEX (BMI) 34.0-34.9, ADULT 04/25/2017 RENEE YOO MD, Ot 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 07/16/2017 SERINA NEGRON Ot 626 .4 IRREGULAR MENSTRUATION 07/16/2017 SERINA NEGRON Ot 789.00 ABDOMINAL PAIN, UNSPECIFIED SITE 07/16/2017 SERINA NEGRON Ot 793 .5 NOSP (ABN) FINDINGS ON RADIOLOGICAL OT 07/16/2017 TIFFANIE PÉREZ DO S Ot 618.01 CYSTOCELE, MIDLINE 07/16/2017 TIFFANIE PÉREZ DO S Ot 618.04 RECTOCELE 07/16/2017 TIFFANIE PÉREZ DO S Ot 625.6 FEM STRESS INCONTINENCE 07/16/2017 TIFFANIE PÉREZ DO S Ot V72.63 PRE-PROCEDURAL LABORATORY EXAMINATION 07/16/2017 TIFFANIE PÉREZ DO S Ot V74.8 SCREEN-BACTERIAL DIS NEC 07/16/2017 KATHLEEN IRVING DO Ot Z01.818 ENCOUNTER FOR OTHER PREPROCEDURAL EXAMIN 07/16/2017 LAMONT RAMIREZ MD Ot E27 .9 DISORDER OF ADRENAL GLAND, UNSPECIFIED 07/16/2017 LAMONT RAMIREZ MD Ot K76 .0 FATTY (CHANGE OF) LIVER, NOT ELSEWHERE C 07/16/2017 LAMONT RAMIREZ MD Ot K80.20 CALCULUS OF GALLBLADDER W/O CHOLECYSTITI 07/16/2017 LAMONT RAMIREZ MD Ot Z91.89 OTH PERSONAL RISK FACTORS, NOT ELSEWHERE 07/16/2017 RENEE YOO MD Ot K80.20 CALCULUS OF GALLBLADDER W/O CHOLECYSTITI 07/16/2017 RENEE YOO MD Ot Z01.818 ENCOUNTER FOR OTHER PREPROCEDURAL EXAMIN 07/17/2017 LAMONT RAMIREZ MD Ot R10.31 RIGHT LOWER QUADRANT PAIN 01/17/2018 LAMONT RAMIREZ MD Ot R10.31 RIGHT LOWER QUADRANT PAIN 01/17/2018 SERINA NEGRON Ot 626 .4 IRREGULAR MENSTRUATION 01/17/2018 SERINA NEGRON Ot 789.00 ABDOMINAL PAIN, UNSPECIFIED SITE 01/17/2018 SERINA NEGRON Ot 793 .5 NOSP (ABN) FINDINGS ON RADIOLOGICAL OT 01/17/2018 ELISA GLASS TIFFANIE S Ot 618.01 CYSTOCELE, MIDLINE 01/17/2018 ELISA GLASS TIFFANIE S Ot 618.04 RECTOCELE 01/17/2018 ELISA DO, TIFFANIE S Ot 625.6 FEM STRESS INCONTINENCE 01/17/2018 ELISA DO TIFFANIE S Ot V72.63 PRE-PROCEDURAL LABORATORY EXAMINATION 01/17/2018 ELISA GLASS TIFFANIE S Ot V74.8 SCREEN-BACTERIAL DIS NEC 01/17/2018 KATHLEEN IRVING DO Ot Z01.818 ENCOUNTER FOR OTHER PREPROCEDURAL EXAMIN 01/17/2018 LAMONT RAMIREZ MD Ot E27 .9 DISORDER OF ADRENAL GLAND, UNSPECIFIED 01/17/2018 LAMONT RAMIREZ MD Ot K76 .0 FATTY (CHANGE OF) LIVER, NOT ELSEWHERE C 01/17/2018 LAMONT RAMIREZ MD Ot K80.20 CALCULUS OF GALLBLADDER W/O CHOLECYSTITI 01/17/2018 LAMONT RAMIREZ MD Ot Z91.89 OTH PERSONAL RISK FACTORS, NOT ELSEWHERE 01/17/2018 RENEE YOO MD Ot K80.20 CALCULUS OF GALLBLADDER W/O CHOLECYSTITI 01/17/2018 RENEE YOO MD Ot Z01.818 ENCOUNTER FOR OTHER PREPROCEDURAL EXAMIN 01/17/2018 LAMONT RAMIREZ MD Ot R10.31 RIGHT LOWER QUADRANT PAIN 01/18/2018 LAMONT RAMIREZ MD Ot R10.31 RIGHT LOWER QUADRANT PAIN 08/10/2018 LAMONT RAMIREZ MD Ot D35.01 BENIGN NEOPLASM OF RIGHT ADRENAL GLAND 08/10/2018 LAMONT RAMIREZ MD Ot E78 .5 HYPERLIPIDEMIA, UNSPECIFIED 08/10/2018 LAMONT RAMIREZ MD Ot I10 ESSENTIAL (PRIMARY) HYPERTENSION 08/10/2018 LAMONT RAMIREZ MD Ot K76 .0 FATTY (CHANGE OF) LIVER, NOT ELSEWHERE C 08/10/2018 LAMONT RAMIREZ MD Ot N20 .0 CALCULUS OF KIDNEY 08/10/2018 LAMONT RAMIREZ MD Ot Z90.49 ACQUIRED ABSENCE OF OTHER SPECIFIED PART 05/06/2019 [facility] DO, TIFFANIE S Ot 618.01 CYSTOCELE, MIDLINE 05/06/2019 [facility] DO, TIFFANIE [place] Ot 618.04 RECTOCELE 05/06/2019 [facility] DO, TIFFANIE [place] Ot 625.6 FEM STRESS INCONTINENCE 05/06/2019 [facility] DO, TIFFANIE [place] Ot V72.63 PRE-PROCEDURAL LABORATORY EXAMINATION 05/06/2019 [facility] DO, TIFFANIE [place] Ot V74.8 SCREEN-BACTERIAL DIS NEC 05/06/2019 KATHLEEN IRVING DO Ot Z01.818 ENCOUNTER FOR OTHER PREPROCEDURAL EXAMIN 05/06/2019 LAMONT RAMIREZ MD Ot E27 .9 DISORDER OF ADRENAL GLAND, UNSPECIFIED 05/06/2019 LAMONT RAMIREZ MD Ot K76 .0 FATTY (CHANGE OF) LIVER, NOT ELSEWHERE C 05/06/2019 LAMONT RAMIREZ MD Ot K80.20 CALCULUS OF GALLBLADDER W/O CHOLECYSTITI 05/06/2019 LAMONT RAMIREZ MD Ot Z91.89 OTH PERSONAL RISK FACTORS, NOT ELSEWHERE 05/06/2019 RENEE YOO MD Ot K80.20 CALCULUS OF GALLBLADDER W/O CHOLECYSTITI 05/06/2019 RENEE YOO MD Ot Z01.818 ENCOUNTER FOR OTHER PREPROCEDURAL EXAMIN 05/06/2019 LAMONT RAMIREZ MD Ot R10.31 RIGHT LOWER QUADRANT PAIN 05/06/2019 LAMONT RAMIREZ MD Ot D35.01 BENIGN NEOPLASM OF RIGHT ADRENAL GLAND 05/06/2019 LAMONT RAMIREZ MD Ot E78 .5 HYPERLIPIDEMIA, UNSPECIFIED 05/06/2019 LAMONT RAMIREZ MD Ot I10 ESSENTIAL (PRIMARY) HYPERTENSION 05/06/2019 LAMONT RAMIREZ MD Ot K76 .0 FATTY (CHANGE OF) LIVER, NOT ELSEWHERE C 05/06/2019 LAMONT RAMIREZ MD Ot N20 .0 CALCULUS OF KIDNEY 05/06/2019 LAMONT RAMIREZ MD Ot Z90.49 ACQUIRED ABSENCE OF OTHER SPECIFIED PART 05/06/2019 CESAR RYAN DO Ot Z01.8 18 ENCOUNTER FOR OTHER PREPROCEDURAL EXAMIN 05/06/2019 ASHLEY DAVIS, LAMONT Briggs Ot I10 ESSENTIAL (PRIMARY) HYPERTENSION 05/06/2019 ASHLEY DAVIS, LAMONT Briggs Ot M79.89 OTHER SPECIFIED SOFT TISSUE DISORDERS 05/10/2019 [place], CESAR B Ot D12.2 BENIGN NEOPLASM OF ASCENDING COLON 05/10/2019 [facility] Ot D12.4 BENIGN NEOPLASM OF DESCENDING COLON 05/10/2019 [facility], [facility] B Ot E78.5 HYPERLIPIDEMIA, UNSPECIFIED 05/10/2019 [facility], CESAR B Ot F41.9 ANXIETY DISORDER, UNSPECIFIED 05/10/2019 [facility] B Ot 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 05/10/2019 [facility] B Ot K20.9 ESOPHAGITIS, UNSPECIFIED 05/10/2019 [facility], CESAR B Ot K29.5 0 UNSPECIFIED CHRONIC GASTRITIS WITHOUT BL 05/10/2019 [place] , CESAR B Ot K44.9 DIAPHRAGMATIC HERNIA WITHOUT OBSTRUCTION 05/10/2019 [facility], CESAR B Ot K63.5 POLYP OF COLON 05/10/2019 [facility], CESAR B Ot K64.8 OTHER HEMORRHOIDS 05/10/2019 [facility], CESAR B Ot Z12.1 1 ENCOUNTER FOR SCREENING FOR MALIGNANT NE 05/10/2019 [facility], [facility] B Ot Z79.8 99 OTHER PRISON (CURRENT) DRUG THERAPY 05/10/2019 [facility], CESAR B Ot Z82.4 9 FAMILY HX OF ISCHEM HEART DIS AND OTH DI 05/10/2019 [facility], CESAR B Ot Z83.3 FAMILY HISTORY OF DIABETES MELLITUS 05/10/2019 [facility], CESAR B Ot Z83.6 FAMILY HISTORY OF OTHER DISEASES OF THE 05/10/2019 [facility] B Ot Z90.4 9 ACQUIRED ABSENCE OF OTHER SPECIFIED PART 05/11/2019 [facility], CESAR B Ot Z01.8 18 ENCOUNTER FOR OTHER PREPROCEDURAL EXAMIN 05/24/2019 DELDEE DO, CESAR B Ot D12.2 BENIGN NEOPLASM OF ASCENDING COLON 05/24/2019 [place] [facility], CESAR B Ot D12.4 BENIGN NEOPLASM OF DESCENDING COLON 05/24/2019 [facility], CESAR B Ot E78.5 HYPERLIPIDEMIA, UNSPECIFIED 05/24/2019 [facility], CESAR B Ot F41.9 ANXIETY DISORDER, UNSPECIFIED 05/24/2019 [facility], CESAR B Ot 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 05/24/2019 [facility], CESAR B Ot K20.9 ESOPHAGITIS, UNSPECIFIED 05/24/2019 [facility], CESAR B Ot K29.5 0 UNSPECIFIED CHRONIC GASTRITIS WITHOUT BL 05/24/2019 [facility], CESAR B Ot K44.9 DIAPHRAGMATIC HERNIA WITHOUT OBSTRUCTION 05/24/2019 [facility], CESAR B Ot K63.5 POLYP OF COLON 05/24/2019 [facility], CESAR B Ot K64.8 OTHER HEMORRHOIDS 05/24/2019 [facility] CESAR B Ot Z12.1 1 ENCOUNTER FOR SCREENING FOR MALIGNANT NE 05/24/2019 [facility] CESAR B Ot 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 05/24/2019 [place] CESAR B Ot Z82.4 9 FAMILY HX OF ISCHEM HEART DIS AND OTH DI 05/24/2019 [facility] CESAR B Ot Z83.3 FAMILY HISTORY OF DIABETES MELLITUS 05/24/2019 [facility] CESAR B Ot Z83.6 FAMILY HISTORY OF OTHER DISEASES OF THE 05/24/2019 [facility] CESAR B Ot Z90.4 9 ACQUIRED ABSENCE OF OTHER SPECIFIED PART 06/03/2019 LAMONT RAMIREZ MD Ot Z12.31 ENCNTR SCREEN MAMMOGRAM FOR MALIGNANT NE 06/16/2019 LAMONT RAMIREZ MD Ot M47.816 SPONDYLOSIS W/O MYELOPATHY OR RADICULOPA 06/16/2019 LAMONT RAMIREZ MD Ot M54.41 LUMBAGO WITH SCIATICA, RIGHT SIDE 06/16/2019 LAMONT RAMIREZ MD Ot M54.42 LUMBAGO WITH SCIATICA, LEFT SIDE 08/04/2019 LAMONT RAMIREZ MD Ot M47.816 SPONDYLOSIS W/O MYELOPATHY OR RADICULOPA 08/04/2019 LAMONT RAMIREZ MD Ot M54.41 LUMBAGO WITH SCIATICA, RIGHT SIDE 08/04/2019 LAMONT RAMIREZ MD Ot M54.42 LUMBAGO WITH SCIATICA, LEFT SIDE Procedures Code Description Performed By Per formed On TRIG [place] INJ/1-2 MUS 08/27/2012 38150 US P TANIA COMPL (REFLEX CPT- 38016) 07/19/2013 77122 ROUT INE VENIPUNCTURE 01/05/2014 54528 LIPI D PANEL 01/05/2014 Results Test Result Range Complete blood count (CBC) with automate d white blood cell (WBC) differential - 10/03/16 14:21 Blood leukocytes automated count (number/volume) 7.4 10*3/uL 4.3-11.0 Blood erythrocytes automated count (number/volume) 4.34 10*6/uL 4.35-5.85 Venous blood hemoglobin measurement (mass/volume) 12.9 g/dL 11.5-16.0 Blood hematocrit (volume fraction) 40 % 35-52 Automated erythrocyte mean corpuscular volume 91 [ foz_us] 80-99 Automated erythrocyte mean corpuscular h emoglobin (mass per erythrocyte) 30 pg 25-34 Automated erythrocyte mean corpuscular h emoglobin concentration measurement (mass/volume) 33 g/dL 32-36 Automated erythrocyte distribution width ratio 13. 0 % 10.0- 14.5 Automated blood platelet count (count/volume) 278 10*3/uL 130-400 Automated blood platelet mean volume measurement 9.5 [foz_us] 7.4-10.4 Automated blood neutrophils/100 leukocytes 58 % 42-75 Automated blood lymphocytes/100 leukocytes 31 % 12-44 Blood monocytes/100 leukocytes 8 % 0-12 Automated blood eosinophils/100 leukocytes 3 % 0-10 Automated blood basophils/100 leukocytes 1 % 0-10 Blood neutrophils automated count (number/volume) 4.3 10*3 1.8-7.8 Blood lymphocytes automated count (number/volume) 2.3 10*3 1.0-4.0 Blood monocytes automated count (number/volume) 0. 6 10*3 0.0-1.0 Automated eosinophil count 0.2 10*3/uL 0 .0-0.3 Automated blood basophil count (count/volume) 0.0 10*3/uL 0.0-0.1 Complete urinalysis with reflex to cultu re - 10/03/16 14:21 Urine color determination YELLOW NRG Urine clarity determination CLEAR NR G Urine pH measurement by test strip 6 5-9 Specific gravity of urine by test strip 1.025 1.016-1.022 Urine protein assay by test strip, semi-quantitative 1+ NEGATIVE Urine glucose detection by automated test strip NE GATIVE NEGATIVE Erythrocytes detection in urine sediment by light micr oscopy NEGATIVE NEGATIVE Urine ketones detection by automated test strip NE GATIVE NEGATIVE Urine nitrite detection by test strip NEGATIVE NEGATIVE Urine total bilirubin detection by test strip NEGA TIVE NEGATIVE Urine urobilinogen measurement by automated test strip (mass/volume) 1 mg/dL NORMAL Urine leukocyte esterase detection by dipstick 1+ NEGATIVE Automated urine sediment erythrocyte cou nt by microscopy (number/high power field) NONE NRG Automated urine sediment leukocyte count by microscopy (number/high power field) NONE NRG Bacteria detection in urine sediment by light microsco py NEGATIVE NRG Squamous epithelial cells detection in u rine sediment by light microscopy 2-5 NRG Crystals detection in urine sediment by light microsco py NONE NRG Casts detection in urine sediment by light microscopy NONE NRG Mucus detection in urine sediment by light microscopy SMALL NRG Complete urinalysis with reflex to culture NO NRG Comprehensive metabolic panel - 10/03/16 14:21 Serum or plasma sodium measurement (moles/volume) 143 mmol/L 135-145 Serum or plasma potassium measurement (moles/volume) 3.7 mmol/L 3.6-5.0 Serum or plasma chloride measurement (moles/volume) 105 mmol/L 98-107 Carbon dioxide 28 mmol/L 21-32 Serum or plasma anion gap determination (moles/volume) 10 mmol/L 5-14 Serum or plasma urea nitrogen measurement (mass/volume ) 10 mg/dL 7-18 Serum or plasma creatinine measurement (mass/volume) 1.02 mg/dL 0.60-1.30 Serum or plasma urea nitrogen/creatinine mass ratio 10 0-20 Serum or plasma creatinine measurement w ith calculation of estimated glomerular filtration rate 57 NRG Serum or plasma glucose measurement (mass/volume) 125 mg/dL 70-105 Serum or plasma calcium measurement (mass/volume) 9.3 mg/dL 8.5-10.1 Serum or plasma total bilirubin measurement (mass/volu me) 0.3 mg/dL 0.1-1.0 Serum or plasma alkaline phosphatase fermin surement (enzymatic activity/volume) 62 U/L 40-136 Serum or plasma aspartate aminotransfera se measurement (enzymatic activity/volume) 36 U/L 5-34 Serum or plasma alanine aminotransferase measurement (enzymatic activity/volume) 30 U/L 0-55 Serum or plasma protein measurement (mass/volume) 5.9 g/dL 6.4-8.2 Serum or plasma albumin measurement (mass/volume) 4.0 g/dL 3.2-4.5 Lipase - 10/03/16 14:21 Lipase 15 U/L 8-78 [id number] - 12/24/16 08:43 Serum or plasma urea nitrogen measurement (mass/volume ) 10 mg/dL 7-18 Serum or plasma creatinine measurement (mass/volume) 1.02 mg/dL 0.60-1.30 Serum or plasma urea nitrogen/creatinine mass ratio 10 NRG Serum or plasma creatinine measurement w ith calculation of estimated glomerular filtration rate 57 NRG 24 hour urine aldosterone measurement (m ass/time) - 12/29/16 08:06 24 hour urine aldosterone measurement (mass/volume) 14.4 % 1.2-28.1 Urine creatinine measurement (mass/volum e) - 12/29/16 08:06 Urine creatinine measurement (mass/volume) 128 mg/ dL NRG 24 hour urine metanephrine measurement ( mass/volume) - 12/29/16 08:06 [id number] 353 ug/L NRG Metanephrine and normetanephrine [interp retation] in serum or plasma narrative SEE FOOTNOTE NRG 24 hour urine normetanephrine/creatinine mass ratio 297 ug/g{Cre} 0-400 Urine metanephrine measurement (mass/volume) 116 % 39-143 Urine normetanephrine measurement (mass/volume) 45 9 H 109- 393 Timed urine creatinine measurement(moles/volume) 1 547 mg 500-1400 Urine metanephrine/creatinine mass ratio 119 mg/dL NRG Urine metanephrines/creatinine mass ratio 75 ug/g{ Cre} 0-300 Creatinine ur 24hr - 12/29/16 08:06 Creatinine ur 24hr 1664 mg 500-1400 24 hour urine vanillylmandelate measurem ent (mass/volume) - 12/29/16 08:06 24 hour urine vanillylmandelate measurement (mass/time ) 1573 H mg/L 500-1400 Urine vanillylmandelic acid (VMA)/creatinine ratio fermin surement 3 mg/g{Cre} 0-6 Interpretation of vanillylmandelic acid (VMA) measurem ent SEE FOOTNOTE NRG CBC With Differential/Platelet - 7 08:10 WBC 7.2 x10E3/uL 3.4-10.8 RBC 4.87 x10E6/uL 3.77-5.28 Hemoglobin 14.6 g/dL 11.1-15.9 Hematocrit 43.3 % 34.0-46.6 MCV 89 fL 79-97 MCH 30.0 pg 26.6-33.0 MCHC 33.7 g/dL 31.5-35.7 RDW 13.1 % 12.3-15.4 Platelets 366 x10E3/uL 150-379 Neutrophils 70 % Not Estab. Lymphs 22 % Not Estab. Monocytes 6 % Not Estab. Eos 1 % Not Estab. Basos 0 % Not Estab. Neutrophils (Absolute) 5.1 x10E3/uL 1.4- 7.0 Lymphs (Absolute) 1.6 x10E3/uL 0.7-3.1 Monocytes(Absolute) 0.4 x10E3/uL 0.1-0.9 Eos (Absolute) 0.0 x10E3/uL 0.0-0.4 Baso (Absolute) 0.0 x10E3/uL 0.0-0.2 Immature Granulocytes 1 % Not Esta b. Immature Grans (Abs) 0.1 x10E3/uL 0.0-0. 1 Comp. Metabolic Panel (14) - 02/14/17 08 :10 Glucose, Serum 110 mg/dL 65-99 BUN 13 mg/dL 6-24 Creatinine, Serum 0.87 mg/dL 0.57-1.00 eGFR If NonAfricn Am 77 mL/min/1.73 >59 eGFR If Africn Am 89 mL/min/1.73 >59 BUN/Creatinine Ratio 15 9-23 Sodium, Serum 141 mmol/L 134-144 Potassium, Serum 4.4 mmol/L 3.5-5.2 Chloride, Serum 98 mmol/L 96-106 Carbon Dioxide, Total 27 mmol/L 18-29 Calcium, Serum 9.6 mg/dL 8.7-10.2 Protein, Total, Serum 7.1 g/dL 6.0-8.5 Albumin, Serum 4.5 g/dL 3.5-5.5 Globulin, Total 2.6 g/dL 1.5-4.5 A/G Ratio 1.7 1.2-2.2 Bilirubin, Total 0.3 mg/dL 0.0-1.2 Alkaline Phosphatase, S 74 IU/L 39-117 AST (SGOT) 13 IU/L 0-40 ALT (SGPT) 15 IU/L 0-32 Lipid Panel - 02/14/17 08:10 Cholesterol, Total 263 mg/dL 100-199 Triglycerides 115 mg/dL 0-149 HDL Cholesterol 39 mg/dL >39 VLDL Cholesterol Dionicoi 23 mg/dL 5-40 LDL Cholesterol Calc 201 mg/dL 0-99 Comment: Comment Renin Activity and Aldosterone - 7 08:10 Renin Activity, Plasma 0.300 ng/mL/hr 0. 167-5.380 Aldosterone 6.6 ng/dL 0.0-30.0 Cortisol - AM - 02/14/17 08:10 Cortisol - AM 1.4 ug/dL 6.2-19.4 CORTISOL, SERUM-AM - 02/14/17 08:10 Cortisol - AM 1.4 ug/dL 6.2-19.4 Urine beta human chorionic gonadotropin (hCG) measurement - 03/26/17 06:30 Urine beta human chorionic gonadotropin (hCG) measurem ent NEGATIVE NEGATIVE Methicillin resistant Staphylococcus aur eus (MRSA) screening culture - 03/26/17 06:45 MRSA SCREEN RESULT MRSA ISOLATED NRG Automated blood complete blood count (he mogram) panel - 03/26/17 07:00 Blood leukocytes automated count (number/volume) 7.3 10*3/uL 4.3-11.0 Blood erythrocytes automated count (number/volume) 4.66 10*6/uL 4.35-5.85 Venous blood hemoglobin measurement (mass/volume) 14.3 g/dL 11.5-16.0 Blood hematocrit (volume fraction) 42 % 35-52 Automated erythrocyte mean corpuscular volume 90 [ foz_us] 80-99 Automated erythrocyte mean corpuscular h emoglobin (mass per erythrocyte) 31 pg 25-34 Automated erythrocyte mean corpuscular h emoglobin concentration measurement (mass/volume) 34 g/dL 32-36 Automated erythrocyte distribution width ratio 12. 6 % 10.0- 14.5 Automated blood platelet count (count/volume) 319 10*3/uL 130-400 Automated blood platelet mean volume measurement 9.4 [foz_us] 7.4-10.4 LYME, TOTAL ANTIBODY/REFLEX WESTERN BLOT - 01/08/18 08:30 LYME AB SCREEN <0.90 index NRG Comprehensive metabolic panel - 08/04/18 11:08 Serum or plasma sodium measurement (moles/volume) 140 mmol/L 135-145 Serum or plasma potassium measurement (moles/volume) 3.9 mmol/L 3.6-5.0 Serum or plasma chloride measurement (moles/volume) 101 mmol/L 98-107 Carbon dioxide 31 mmol/L 21-32 Serum or plasma anion gap determination (moles/volume) 8 mmol/L 5-14 Serum or plasma urea nitrogen measurement (mass/volume ) 12 mg/dL 7-18 Serum or plasma creatinine measurement (mass/volume) 0.92 mg/dL 0.60-1.30 Serum or plasma urea nitrogen/creatinine mass ratio 13 NRG Serum or plasma creatinine measurement w ith calculation of estimated glomerular filtration rate > NRG Serum or plasma glucose measurement (mass/volume) 88 mg/dL 70-105 Serum or plasma calcium measurement (mass/volume) 9.5 mg/dL 8.5-10.1 Serum or plasma total bilirubin measurement (mass/volu me) 0.3 mg/dL 0.1-1.0 Serum or plasma alkaline phosphatase fermin surement (enzymatic activity/volume) 67 U/L 40-136 Serum or plasma aspartate aminotransfera se measurement (enzymatic activity/volume) 17 U/L 5-34 Serum or plasma alanine aminotransferase measurement (enzymatic activity/volume) 27 U/L 0-55 Serum or plasma protein measurement (mass/volume) 7.0 g/dL 6.4-8.2 Serum or plasma albumin measurement (mass/volume) 4.1 g/dL 3.2-4.5 CALCIUM CORRECTED 9.4 mg/dL 8.5-10.1 CBC - 12/23/18 08:10 WHITE BLOOD CELL COUNT 7.6 Thousand/uL 3 .8-10.8 RED BLOOD CELL COUNT 4.85 Million/uL 3.8 0-5.10 HEMOGLOBIN 14.9 g/dL 11.7-15.5 HEMATOCRIT 45.0 % 35.0-45.0 MCV 92.8 fL 80.0-100.0 MCH 30.7 pg 27.0-33.0 MCHC 33.1 g/dL 32.0-36.0 RDW 13.2 % 11.0-15.0 PLATELET COUNT 287 Thousand/uL 140-400 MPV 9.7 fL 7.5-12.5 ABSOLUTE NEUTROPHILS 4841 cells/uL 1500- 7800 ABSOLUTE LYMPHOCYTES 1786 cells/uL 850-3 900 ABSOLUTE MONOCYTES 692 cells/uL 200-950 ABSOLUTE EOSINOPHILS 228 cells/uL 15-500 ABSOLUTE BASOPHILS 53 cells/uL 0-200 NEUTROPHILS 63.7 % NRG LYMPHOCYTES 23.5 % NRG MONOCYTES 9.1 % NRG EOSINOPHILS 3.0 % NRG BASOPHILS 0.7 % NRG A1C - 04/22/19 09:46 HEMOGLOBIN A1c 6.3 % of total Hgb <5.7 BNP - 04/22/19 09:46 B TYPE NATRIURETIC PEPTIDE (BNP) 82 pg/mL <100 SUREPATH PAP AND HPV mRNA E6/E7 - 10:23 CLINICAL INFORMATION: MENOPAUSAL NRG LMP: MENOPAUSAL NRG PREV. PAP: NEGATIVE NRG PREV. BX: NONE NRG SOURCE: Cervix NRG STATEMENT OF ADEQUACY: NRG INTERPRETATION/RESULT: NRG MANAGER SUPPLY CHAIN: NRG HPV mRNA E6/E7, SUREPATH VIAL Not Detected NOT DETECTED COMMENT NRG PROTEIN E-PHORESIS, SERUM - 06/02/19 10: 06 PROTEIN, TOTAL 6.9 g/dL 6.1-8.1 ALBUMIN 3.8 g/dL 3.8-4.8 ALPHA 1 GLOBULIN 0.3 g/dL 0.2-0.3 ALPHA 2 GLOBULIN 0.9 g/dL 0.5-0.9 BETA 1 GLOBULIN 0.7 g/dL 0.4-0.6 BETA 2 GLOBULIN 0.4 g/dL 0.2-0.5 GAMMA GLOBULIN 0.9 g/dL 0.8-1.7 INTERPRETATION NRG BMP - 06/02/19 10:06 GLUCOSE 97 mg/dL 65-99 UREA NITROGEN (BUN) 20 mg/dL 7-25 CREATININE 1.01 mg/dL 0.50-1.05 eGFR NON-AFR. KENYAN 63 mL/min/1.73m2 > OR = 60 eGFR 73 mL/min/1.73m2 > OR = 60 BUN/CREATININE RATIO NOT APPLICABLE (calc) 6-22 SODIUM 141 mmol/L 135-146 POTASSIUM 4.5 mmol/L 3.5-5.3 CHLORIDE 94 mmol/L 98-110 CARBON DIOXIDE 39 mmol/L 20-32 CALCIUM 9.2 mg/dL 8.6-10.4 PROTEIN, TOTAL W/CREAT, RANDOM URINE - 0 06/02/19 10:06 CREATININE, RANDOM URINE 62 mg/dL 20-27 5 PROTEIN/CREATININE RATIO 274 mg/g creat 21-161 PROTEIN, TOTAL, RANDOM UR 17 mg/dL 5-24 CBC - 06/02/19 10:06 WHITE BLOOD CELL COUNT 12.3 Thousand/uL 3.8-10.8 RED BLOOD CELL COUNT 5.72 Million/uL 3.8 0-5.10 HEMOGLOBIN 15.4 g/dL 11.7-15.5 HEMATOCRIT 49.4 % 35.0-45.0 MCV 86.4 fL 80.0-100.0 MCH 26.9 pg 27.0-33.0 MCHC 31.2 g/dL 32.0-36.0 RDW 14.7 % 11.0-15.0 PLATELET COUNT 348 Thousand/uL 140-400 MPV 10.0 fL 7.5-12.5 ABSOLUTE NEUTROPHILS 16186 cells/uL 1500 -7800 ABSOLUTE LYMPHOCYTES 1218 cells/uL 850-3 900 ABSOLUTE MONOCYTES 726 cells/uL 200-950 ABSOLUTE EOSINOPHILS 37 cells/uL 15-500 ABSOLUTE BASOPHILS 62 cells/uL 0-200 NEUTROPHILS 83.4 % NRG LYMPHOCYTES 9.9 % NRG MONOCYTES 5.9 % NRG EOSINOPHILS 0.3 % NRG BASOPHILS 0.5 % NRG Encounters ACCT No. Visit Date/Time Discharge Status Pt. Type Provider Facility Loc./Unit Complaint [id number] 02/20/2017 15:07:00 Document Registration [id number] 01/05/2014 08:06:00 01/05/2014 23:59: [facility] Outpatient SONNY MORENO DO [id number] 07/19/2013 15:16:00 07/19/2013 23:59: [facility] Outpatient OSNNY MORENO DO [id number] 08/27/2012 10:20:00 08/27/2012 23:59: [facility] Outpatient SONNY MORENO DO [id number] 04/20/2012 10:19:00 04/20/2012 23:59: 59 [place] [id number] 07/01/2019 16:30:00 07/01/2019 23:59:5 9 CLS Outpatient LAMONT RAMIREZ MD [facility] [id number] 06/02/2019 09:20:00 Document Registration [id number] 05/05/2019 09:00:00 Document Registration [id number] 04/22/2019 09:00:00 Document Registration [id number] 12/23/2018 08:00:00 Document Registration [id number] 01/08/2018 08:20:00 Document Registration [id number] 02/14/2017 08:20:00 Document Registration [id number] 06/14/2019 10:25:00 23:59:59 CLS Outpatient LAMONT RAMIREZ MD [facility] RAD LUMBAGO W/ SCIATICA [id number] 06/02/2019 10:29:00 23:59:59 CLS Outpatient LAMONT RAMIREZ MD [facility] RAD SCREENING [id number] 05/10/2019 10:27:00 13:15:00 DIS Outpatient CESAR RYAN DO [facility] ENDO SCREENING/REFLUX/HEARTB URN [id number] 05/06/2019 05:33:00 020 12:46:00 DIS Outpatient CESAR RAYN DO [facility] PREOP COLONOSCOPY/EGD [id number] 05/05/2019 10:55:00 23:59:59 CLS Outpatient LAMONT RAMIREZ MD [facility] CARD SWELLING,HTN [id number] 08/27/2018 12:30:00 23:59:59 CLS Preadmit LAMONT RAMIREZ MD [facility] RAD LUMBARGO W/ SCIATICA RT SIDE [id number] 08/04/2018 10:56:00 019 23:59:59 CLS Outpatient LAMONT RAMIREZ MD [facility] RAD ESSENTIAL HYPERTENSION [id number] 07/16/2017 07:53:00 018 23:59:59 CLS Outpatient LAMONT RAMIREZ MD [facility] RAD R10.31 RT GROIN PAIN [id number] 03/26/2017 06:24:00 017 12:20:00 DIS Outpatient RENEE YOO MD [facility] GALLSTONES [id number] 03/19/2017 05:37:00 017 12:42:00 DIS Outpatient RENEE YOO MD [facility] PREOP GALLSTONES [id number] 01/22/2017 13:35:00 017 23:59:59 CLS Preadmit RENEE YOO MD [facility] [place]STONES [id number] 2017 05:39:00 017 23:59:59 CLS Outpatient RENEE YOO MD [facility] PREOP ROBOTIC CHOLECYSTECTOM Y, POSS.GRAMS, POSS. OPEN [id number] 12/29/2016 08:06:00 017 11:00:00 DIS Outpatient RENEE YOO MD [facility] LAB RIGHT ADRENAL NODULE [id number] 12/24/2016 08:17:00 017 23:59:59 CLS Outpatient LAMONT RAMIREZ MD [facility] RAD RT ADRENAL MASS E27.9 [id number] 10/03/2016 13:37:00 017 16:59:00 DIS Emergency GHAZAL GAUTHIER GUEST RELATIONS RECEPTIONIST [facility] ER ABD PAIN [id number] 09/14/2015 05:38:00 016 23:59:59 CLS Outpatient KATHLEEN IRVING DO [facility] PREOP REFLEX/SCREENING [id number] 12/01/2014 06:26:00 015 10:30:00 DIS Outpatient TIFFANIE PÉREZ DO [facility] CYSTOCELE/RECTOCELE [id number] 11/23/2014 07:54:00 015 23:59:59 CLS Outpatient TIFFANIE PÉREZ DO [facility] PREOP CYSTOCELE/RECTOCELE [id number] 09/01/2013 15:21:00 014 23:59:59 CLS Outpatient SERINA NEGRON [facility] RAD ABN PAIN [id number] 12/12/2005 08:54:00 Document Registration
[2019-08-08] MEDS ORDERED: RT-ALBUTEROL HFA (PROAIR HFA) 8.5 GM IH ONE (16:00)
[2019-08-08] MEDS ORDERED: RX-ALBUTEROL INHALER (PROAIR) 8.5 GM IH ONE (16:35)
[2019-08-08 16:55] LABS: BASOPHILS % (AUTO) 1 % (0-10); EOSINOPHILS # (AUTO) 0.1 10^3/uL (0.0-0.3); EOSINOPHILS % (AUTO) 2 % (0-10); HEMATOCRIT 50 % (35-52); HEMOGLOBIN 15.7 G/DL (11.5-16.0); LYMPHOCYTES # (AUTO) 1.9 X 10^3 (1.0-4.0); LYMPHOCYTES % (AUTO) 24 % (12-44); MEAN CORPUSCULAR HEMOGLOBIN 26 PG (25-34); MEAN CORPUSCULAR HGB CONC 32 G/DL (32-36); MEAN CORPUSCULAR VOLUME 82 FL (80-99); MEAN PLATELET VOLUME 9.8 FL (7.4-10.4); MONOCYTES # (AUTO) 0.9 X 10^3 (0.0-1.0); MONOCYTES % (AUTO) 11 % (0-12); NEUTROPHILS % (AUTO) 63 % (42-75); PLATELET COUNT 294 10^3/uL (130-400); RED CELL DISTRIBUTION WIDTH 18.8 % (10.0-14.5); WHITE BLOOD COUNT 7.9 10^3/uL (4.3-11.0)
[2019-08-08 17:06] LABS: ALBUMIN 3.9 GM/DL (3.2-4.5); POTASSIUM 3.4 MMOL/L (3.6-5.0)
[2019-08-08 17:07] LABS: CALCIUM 9.5 MG/DL (8.5-10.1); INR 0.9 (0.8-1.4); PROTHROMBIN TIME PATIENT 11.9 SEC (12.2-14.7)
[2019-08-08 17:09] LABS: TOTAL PROTEIN 7.6 GM/DL (6.4-8.2)
--- NOTE | 2019-08-08 17:09 | Diagnostic Imaging Report ---
INDICATION: Shortness of air. TECHNIQUE: Single view chest 500 p.m.. CORRELATION STUDY: 06/12/2009 FINDINGS: The heart size, mediastinal configuration and pulmonary vascularity are within normal limits. The lungs are clear with no consolidating infiltrate. There is no significant effusion or pneumothorax. Lung bases somewhat obscured by overlapping summation shadows. IMPRESSION: 1. Negative for acute abnormality of the chest. Dictated by: Dictated on workstation # [id number]
[2019-08-08 17:10] LABS: BILIRUBIN,TOTAL 0.5 MG/DL (0.1-1.0)
[2019-08-08 17:12] LABS: CREATININE SERUM 1.23 MG/DL (0.60-1.30)
--- NOTE | 2019-08-08 17:12 | ED General ---
General Chief Complaint: Respiratory Problems Stated Complaint: SOA Nursing Triage Note: PT PRESENTS TO ED WITH COMPLAINTS OF SOA AND SWELLING ISSUES SINCE 2018. PT REPORTS SHE HAS SEEN HER DR FOR THIS AND WAS PLACED ON A DIAURETIC. PT STATES THIS PAST WEEK THE SWELLING HAS GOTTEN WORSE AND HER SOA HAS INCREASED. Nursing Sepsis Screen: No Definite Risk Source of Information: Patient, Old Records Exam Limitations: No Limitations History of Present Illness Date Seen by Provider: Aug 08, 2019 Time Seen by Provider: 15:45 Initial Comments This 54-year-old woman presents to the emergency room with complaints of increasing edema from her feet all the way up through her thighs and abdomen as well as shortness of breath. These symptoms started last fall and have worsened over the past month and especially over the last week. She has been seen and worked up by her primary care provider, Dr. Ramirez. She increased her Lasix dose to 40 mg daily 3 days ago. She has not noticed much improvement since then. She reports gaining 11 pounds in the last month and more than 60 pounds since symptoms began. She denies any chest pain, new cough, or fever. She reports history of fatty liver disease. She continues to smoke. An echocardiogram from April is unremarkable. Allergies and Home Medications Allergies Coded Allergies: No Known Drug Allergies (Unverified , 05/06/19) Home Medications Atorvastatin Calcium 20 Mg Tablet, 20 MG PO DAILY, (Reported) Furosemide 20 Mg Tablet, 20 MG PO DAILY, (Reported) Hydrochlorothiazide 25 Mg Tablet, 25 MG PO DAILY, (Reported) Patient Home Medication List Home Medication List Reviewed: Yes Review of Systems Review of Systems Constitutional: see HPI, weight gain EENTM: no symptoms reported Respiratory: see HPI Cardiovascular: see HPI Gastrointestinal: see HPI Genitourinary: no symptoms reported : No Musculoskeletal: no symptoms reported Skin: no symptoms reported Psychiatric/Neurological: No Symptoms Reported Hematologic/Lymphatic: No Symptoms Reported Immunological/Allergic: no symptoms reported Past Tycejjz-Qzueuq-Ncctfe Hx Past Med/Social Hx: Reviewed Nursing Past Med/Soc Hx Patient Social History Alcohol Use: Denies Use Recreational Drug Use: No Smoking Status: Current Everyday Smoker Type Used: Cigarettes 2nd Hand Smoke Exposure: Yes Recent Foreign Travel: No Contact w/Someone Who Travel: No Recent Infectious Disease Expo: No Recent Hopitalizations: No Physical Abuse: No Sexual Abuse: No Mistreated: No Fear: No Immunizations Up To Date Tetanus Booster (TDap): Unknown PED Vaccines UTD: No Seasonal Allergies Seasonal Allergies: Yes Past Medical History Surgeries: Yes Bladder Surgery, Section, Gallbladder Respiratory: Yes (BEGINING STAGES) COPD Cardiac: Yes High Cholesterol, Hypertension Neurological: No Reproductive Disorders: No Female Reproductive Disorders: Denies Sexually Transmitted Disease: No HIV/AIDS: No Genitourinary: No Gastrointestinal: Yes (fatty liver disease) Gastroesophageal Reflux, Hiatal Hernia Musculoskeletal: Yes Chronic Back Pain Endocrine: No HEENT: Yes (GLASSES, DENTURES) Loss of Vision: Bilateral Hearing Impairment: Denies Cancer: No Psychosocial: Yes Anxiety, Depression Integumentary: No Blood Disorders: No Adverse Reaction/Blood Tranf: No (N/A) Family Medical History Reviewed Nursing Family Hx COPD 19 MOTHER Diabetes mellitus 19 FATHER Myocardial infarction 19 FATHER TESTICULAR CANCER G8 BROTHER Physical Exam Vital Signs Vital Signs - First Documented 08/08/19 08/08/19 16:04 17:40 Temp 36.7 Pulse 84 Resp 18 B/P (MAP) 115/97 (103) Pulse Ox 91 O2 Delivery Room Air O2 Flow Rate 2.00 Capillary Refill : Less Than 3 Seconds Height, Weight, BMI Height: 5'7.00" Weight: 220lbs. 0.0oz. 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 Norm as Tested Skin: Warm/Dry, Erythema (feet) Progress/Results/Core Measures Suspected Sepsis Recent Fever Within 48 Hours: No Infection Criteria Present: None New/Unexplained Altered Menta: No Sepsis Screen: No Definite Risk SIRS Temperature: Pulse: 84 Respiratory Rate: 18 Laboratory Tests 08/08/19 16:22: White Blood Count 7.9 Blood Pressure 115 /97 Mean: 103 Laboratory Tests 08/08/19 16:22: Creatinine 1.23, INR Comment 0.9, Platelet Count 294, Total Bilirubin 0.5 Results/Orders Lab Results Laboratory Tests Test 08/08/19 16:22 Range/Units White Blood Count 7.9 4.3-11.0 10^3/uL Red Blood Count 6.08 H 4.35-5.85 10^6/uL Hemoglobin 15.7 11.5-16.0 G/DL Hematocrit 50 35-52 % Mean Corpuscular Volume 82 80-99 FL Mean Corpuscular Hemoglobin 26 25-34 PG Mean Corpuscular Hemoglobin Concent 32 32-36 G/DL Red Cell Distribution Width 18.8 H 10.0-14.5 % Platelet Count 294 130-400 10^3/uL Mean Platelet Volume 9.8 7.4-10.4 FL Neutrophils (%) (Auto) 63 42-75 % Lymphocytes (%) (Auto) 24 12-44 % Monocytes (%) (Auto) 11 0-12 % Eosinophils (%) (Auto) 2 0-10 % Basophils (%) (Auto) 1 0-10 % Neutrophils # (Auto) 5.0 1.8-7.8 X 10^3 Lymphocytes # (Auto) 1.9 1.0-4.0 X 10^3 Monocytes # (Auto) 0.9 0.0-1.0 X 10^3 Eosinophils # (Auto) 0.1 0.0-0.3 10^3/uL Basophils # (Auto) 0.0 0.0-0.1 10^3/uL Erythrocyte Sedimentation Rate 1 0-30 MM/HR Prothrombin Time 11.9 L 12.2-14.7 SEC INR Comment 0.9 0.8-1.4 D-Dimer 0.41 0.00-0.49 UG/ML Sodium Level 139 135-145 MMOL/L Potassium Level 3.4 L 3.6-5.0 MMOL/L Chloride Level 87 L 98-107 MMOL/L Carbon Dioxide Level 38 H 21-32 MMOL/L Anion Gap 14 5-14 MMOL/L Blood Urea Nitrogen 20 H 7-18 MG/DL Creatinine 1.23 0.60-1.30 MG/DL Estimat Glomerular Filtration Rate 46 BUN/Creatinine Ratio 16 Glucose Level 116 H 70-105 MG/DL Calcium Level 9.5 8.5-10.1 MG/DL Corrected Calcium 9.6 8.5-10.1 MG/DL Magnesium Level 1.7 1.6-2.4 MG/DL Total Bilirubin 0.5 0.1-1.0 MG/DL Aspartate Amino Transf (AST/SGOT) 16 5-34 U/L Alanine Aminotransferase (ALT/SGPT) 13 0-55 U/L Alkaline Phosphatase 89 40-136 U/L Troponin I 0.041 H <0.028 NG/ML C-Reactive Protein High Sensitivity 0.71 H 0.00-0.50 MG/DL B-Type Natriuretic Peptide 111.2 H <100.0 PG/ML Total Protein 7.6 6.4-8.2 GM/DL Albumin 3.9 3.2-4.5 GM/DL TSH Challenge Testing 1.57 0.35-4.94 UIU/ML My Orders Orders - SERINA WU MD BNP (08/08/19 15:53) Cbc With Automated Diff (08/08/19 15:53) Comprehensive Metabolic Panel (08/08/19 15:53) Hs C Reactive Protein (08/08/19 15:53) Magnesium (08/08/19 15:53) Protime With Inr (08/08/19 15:53) Thyroid Analyzer (08/08/19 15:53) Ed Iv/Invasive Line Start (08/08/19 15:53) Ekg Tracing (08/08/19 15:53) Monitor-Rhythm Ecg Trace Only (08/08/19 15:53) Chest 1 View, Ap/Pa Only (08/08/19 15:53) Troponin I (08/08/19 15:53) Albuterol Inhaler (Proair Hfa) (08/08/19 16:00) Erythrocyte Sedimentation Rate (08/08/19 16:19) Rx-Albuterol Inhaler (Rx-Proair) (08/08/19 16:35) Fibrin Degradation Products (08/08/19 17:03) Furosemide Injection (Lasix Injection) (08/08/19 18:00) Potassium Chloride (Tablet) (Klor Con Ta (08/08/19 18:00) Aspirin Chewable Tablet (Baby Aspirin Ch (08/08/19 18:30) Influenza A And B Antigens (08/08/19 18:27) Coronavirus Sars-Cov-2 So 2018 (08/08/19 18:27) Medications Given in ED Current Medications Medications Dose Ordered Sig/Damon Route Start Time Stop Time Status Last Admin Dose Admin Albuterol Sulfate 2 PUFFS Q4H ONCE IH 08/08/19 16:00 08/08/19 16:01 DC 08/08/19 16:47 8.5 GM Vital Signs/I&O 08/08/19 08/08/19 08/08/19 08/08/19 16:04 16:45 17:15 17:40 Temp 36.7 36.7 36.7 36.7 Pulse 84 76 75 81 Resp 18 22 11 18 B/P (MAP) 115/97 (103) 91/60 (70) 120/76 (91) 128/79 (95) Pulse Ox 91 89 94 99 O2 Delivery Room Air Room Air Nasal Cannula Nasal Cannula O2 Flow Rate 2.00 08/08/19 18:00 Temp 36.7 Pulse 76 Resp 10 B/P (MAP) 124/75 (91) Pulse Ox 99 O2 Delivery Nasal Cannula O2 Flow Rate 2.00 Capillary Refill : Less Than 3 Seconds Blood Pressure Mean: 103 Progress Note #1: Time: 18:24 Progress Note Workup was remarkable for an elevated troponin. Patient was treated with 2 puffs of an albuterol inhaler which improved her wheezing and air movement. However, she slowly became hypoxic after that with oxygen saturations as low as 83 percent on room air. She responded well to nasal cannula at 2 L/m. There is not a clear cause for her hypoxia. Patient's troponin returned slightly elevated. Dr. Rangel was consulted. He requested a COVID-19 testing, admission, repeat troponin, and Lovenox. Case was also discussed with Dr. Randall and Dr. Hummel was consulted at her request. We will be testing for influenza and COVID-19. Patient will receive Lovenox, potassium, and Lasix on the cardiac step down unit. Progress Note #2: Time: 18:35 Progress Note Wheezing is minimal after another 2 puffs on the inhaler. ECG Initial ECG Impression Date: Aug 08, 2019 Initial ECG Impression Time: 16:25 Initial ECG Rate: 78 Initial ECG Rhythm: Normal Sinus Initial ECG Intervals: Normal Comment Normal sinus rhythm with no ST elevation or depression. No abnormal intervals or axis deviation. Diagnostic Imaging Diagonstic Imaging: Xray Plain Films/CT/US/NM/MRI: chest Comments Chest x-ray viewed by me and report reviewed. See report below: NAME: JAS AGUILAR [facility] REC#: [id number] PT STATUS: REG ER : 1965 PHYSICIAN: SERINA WU MD ADMIT DATE: 08/08/19/ER Draft Date of Exam:08/08/19 CHEST 1 VIEW, AP/PA ONLY INDICATION: Shortness of air. TECHNIQUE: Single view chest 500 p.m.. CORRELATION STUDY: 06/12/2009 FINDINGS: The heart size, mediastinal configuration and pulmonary vascularity are within normal limits. The lungs are clear with no consolidating infiltrate. There is no significant effusion or pneumothorax. Lung bases somewhat obscured by overlapping summation shadows. IMPRESSION: 1. Negative for acute abnormality of the chest. Dictated on workstation # [id number] Dict: 08/08/198 Trans: 08/08/19 1708 DO [id number] Interpreted by: KIM JOHNS DO Departure Communication (Admissions) Time/Spoke to Admitting Phy: 18:10 Dr. Randall Time/Spoke to Consulting Phy: 18:15 Dr. Estephanie Rangel Impression Primary Impression: Hypoxia Additional Impressions: COPD exacerbation Elevated troponin Edema Qualified Codes: R60.9 - Edema, unspecified Disposition: ADMITTED INPATIENT Condition: Stable Admissions Decision to Admit Reason: Admit from ER (General) Decision to Admit/Date: Aug 08, 2019 Time/Decision to Admit Time: 18:00 Departure-Patient Inst. Referrals: LAMONT RAMIREZ MD (PCP/Family) Primary Care Physician SERINA WU MD Aug 08, 2019 17:12
[2019-08-08 17:15] LABS: MAGNESIUM 1.7 MG/DL (1.6-2.4)
[2019-08-08 17:27] LABS: ERYTHROCYTE SEDIMENTATION RATE 1 MM/HR (0-30)
[2019-08-08 17:36] LABS: TSH (THYROID ANALYZER) 1.57 UIU/ML (0.35-4.94)
[2019-08-08] MEDS ORDERED: KCL 10 MEQ TAB (MICRO K) PO ONE (18:00)
[2019-08-08] MEDS ORDERED: FUROSEMIDE 40 MG/4 ML INJ (LASIX) IVP ONE (18:00)
[2019-08-08] MEDS ORDERED: ASPIRIN 81 MG CHEW (CHILDREN'S ASA) PO ONE (18:30)
[2019-08-08] MEDS ORDERED: ENOXAPARIN 60 MG/0.6 ML (LOVENOX) SYR SC STA (18:49)
--- OUTSIDE RECORDS SUMMARY | 2019-08-08 18:55 | XMS REPORT ---
Author Author [employer]. Organization [employer]. Address [address] [address] Care Team Providers Care Community Life Director Name Role Phone ASHLEY, LAMONT Unavailable Unavailable [...] PÉREZ Not Available sources.) Allergies , DO (65637) DA (2 Unclassified No Known Drug 03-19-2017 - no information LAMONT RAMIREZ Not Available sources.) Allergies , (02401) Medications Medication Ingredient Drug Dose Dates Status [...] ropium no information rgic 18 capsule by [place] name (2 inhalation Monohydrate (no sources.) once [...] unclassified other Hospital - (6 sources.) specified [place] parts of (97442) digestive tract Other and Benign 06-11-2019 - Episodic Active CESARNINA RYAN , [facility] Via unspecified neoplasm of [facility] benign ascending Hospital - neoplasm (5 colon [place] sources.) (62705) Other and Benign 06-11-2019 - Episodic Active CESARNINA RYAN [facility] Via unspecified neoplasm of [facility] benign descending [facility] - neoplasm (5 colon [place] sources.) (15795) Other Body mass Chronic Active RENEE YOO [facility] Via nutritional; index (BMI) , MD [place] [facility]; and 34.0-34.9, Hospital - metabolic adult [place] disorders (6 (54843) sources.) Calculus of Calculus of Episodic Active LAMONT ASHLEY [facility] Via urinary tract kidney , MD [place] (2 sources.) [facility] (80056) Prolapse of Cystocele, Chronic Active TIFFANIE FENECH [facility] Via female genital midline , DO [place] organs (20 Translations: Hospital - sources.) [ RECTOCELE, [place] UTEROVAG (17855) PROLAPS-INCOMP L, RECTOCELE] Esophageal Esophagitis, 06-11-2019 - Episodic Active CESAR DELM AN , [facility] Via disorders (5 unspecified DO Dianai sources.) [facility] (19803) Residual Family history 06-11-2019 - Episodic Active CESAR DELM AN , [facility] Via codes; of diabetes DO [facility] unclassified mellitus Hospital - (4 sources.) [place] () Residual Family history 06-11-2019 - Episodic Active CESAR DELM AN , [facility] Via codes; of ischemic DO [facility] unclassified heart disease Hospital - (4 sources.) and other [place] diseases of (42102) the circulatory system Residual Family history 06-11-2019 - Episodic Active CESAR DELM AN , [facility] Via codes; of other DO [facility] unclassified diseases of Hospital - (4 sources.) the [place] respiratory (49170) system Substance-rela Nicotine Chronic Active RENEE YOO [facility] Via rohan disorders dependence, , MD [place] (6 sources.) cigarettes, Hospital - uncomplicated [place] (16229) Other Obesity, Chronic Active RENEE YOO [facility] Via nutritional; unspecified , MD [place] [facility]; and Hospital - metabolic [place] disorders (6 (29280) sources.) Hemorrhoids (5 Other 06-11-2019 - Episodic Active CESAR DELM AN , [facility] Via sources.) hemorrhoids DO [facility] [address] ([address]) Other Other long 06-11-2019 - Episodic Active RENEE Angeles [facility] Via aftercare (10 term (current) , MD [place] sources.) drug therapy [facility] () Other Other 06-11-2019 - Episodic Active LAMONT RAMIREZ [facility] Via connective specified soft MD [place] tissue disease tissue [facility] - (3 sources.) disorders [place] () Other Personal Episodic Active GHAZAL GAUTHIER [facility] Via gastrointestin history of RAKESH [place] al disorders other diseases Hospital - (9 sources.) of the [place] digestive (19611) system Other and Polyp of colon 06-11-2019 - Episodic Active CESAR DEL MAN , [facility] Via unspecified [facility] benign Hospital - neoplasm (5 [place] sources.) (63191) Other upper Polyp of Episodic Active Doctor Community respiratory larynx [facility] disease (1 Translations: of [facility] source.) [ Laryngeal [place] (02970) polyp] Other upper Polyp of vocal 06-11-2019 - Episodic Active CESAR NICHOLSON , [facility] Via respiratory cord and DO [place] disease (5 larynx Hospital - sources.) [place] (91782) Other diseases Prolapsed Episodic Active TIFFANIE PÉREZ [facility] Via of bladder and urethral , DO [place] urethra (8 mucosa Hospital - sources.) [place] (25599) Immunizations Screening Episodic [facility] and screening examination , DO [place] for infectious for other Hospital - disease (8 specified [place] sources.) bacterial and (38371) spirochetal diseases Other bone Segmental and Episodic Active Doctor Communi ty disease and somatic [facility] musculoskeleta dysfunction of of [facility] l deformities lumbar region [place] (71678) (6 sources.) Translations: [ - Segmental dysfunction of lumbar region M99.03] Other bone Segmental and Episodic Active Doctor Communi ty disease and somatic [facility] musculoskeleta dysfunction of of Southeast l deformities sacral region [place] (36704) (6 sources.) Translations: [ - Segmental dysfunction of sacral region M99.04] Other bone Segmental and Episodic Active Doctor Communi ty disease and somatic [facility] musculoskeleta dysfunction of of [facility] l deformities thoracic [place] (68810) (6 sources.) region Translations: [ - Segmental dysfunction of thoracic region M99.02] Other and Tubular Episodic Active Doctor Community unspecified adenoma [facility] benign Translations: of [facility] neoplasm (1 [ Tubular [place] (10076) source.) adenoma] Gastritis and Unspecified 06-11-2019 - Chronic Active CESAR HERZOG [facility] Via duodenitis (5 chronic DO Krista sources.) gastritis Hospital - without [place] bleeding (69743) Procedures Procedure Normalized Procedure Procedure Result Performer Facility Date 02-14-2017 Assay of aldosterone no information no name (no ameya ne) [facility] 02-14-2017 [place] ([id number]) - 02-14-2017 02-14-2017 Assay of renin no information no name (no phone) [facility] 02-14-2017 [place] ([id number]) - 02-14-2017 12-12-2011 Assay of thyroid no information no name (no phone) [facility] stimulating hormone [facility] tsh [place] (77980) 12-12-2011 Blood count complete no information no name (no ameya ne) [facility] auto&auto difrntl wbc [facility] (38992) 01-05-2014 Collection venous no information no name (no phone) [facility] blood venipuncture [facility] (17715) 12-12-2011 Collection venous no information no name (no phone) [facility] blood venipuncture [facility] (26390) 02-14-2017 Comprehen metabolic no information no name (no phon e) [facility] - [facility] 02-14-2017 [place] ([id number]) - 02-14-2017 12-12-2011 Comprehensive no information no name (no phone) [facility] (09270) 01-05-2014 Lipid panel no information no name (no phone) Comm [facility] (35547) 07-10-2017 Radex hip unilateral no information no name (no ameya ne) [facility] with pelvis 2-3 views [facility] (31127) 02-14-2017 Routine venipuncture no information no name (no ameya ne) [facility] 02-14-2017 [place] (07690) - 02-14-2017 01-03-2017 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 no information no name (no phon e) [facility] 3-10 min [facility] (72737) 02-14-2017 Total cortisol no information no name (no phone) [facility]2017 [place] (02540) - 02-14-2017 02-14-2017 WBC (Leukocytes) no information no name (no phone) [facility] 02-14-2017 [place] (12486) - 02-14-2017 Immunizations The data below is [...] on null NEGATED: no information (no code) [facility] Laboratory [facility] Studies (26431) No panel information on 2019-06-02 Albumin 3.8 g/dL (N) 3.4 - 5.4 g/dL [facility] [Mass/Vol] [facility] (46186) Alpha 1 globulin 0.3 g/dL (N) 0.1 - 0.3 g/dL [facility] [Mass/Vol] [facility] (82081) Alpha 2 globulin 0.9 g/dL (N) 0.6 - 1 g/dL Count includes the [facility] [Mass/Vol] [facility] (54545) Basophils (Bld) 0.062 10*3/uL (N) 0 - 0.3 10*3/uL [facility] [#/Vol] [facility] (88112) Basophils/100 0.5 % (N) 0.5 - 1 % [facility] alth WBC (Bld) [facility] (04836) Beta 1 globulin 0.7 g/dL (H) Critical access hospital [facility] [Mass/Vol] [facility] (45651) Beta 2 globulin 0.4 g/dL (N) Critical access hospital El [Mass/Vol] [facility] (49557) Calcium 9.2 mg/dL (N) 8.5 - 10.2 mg/dL [facility] [Mass/Vol] [facility] (47120) Chloride 94 mmol/L (L) 95 - 106 mmol/L [facility] [Moles/Vol] [facility] (43971) CO2 [Moles/Vol] 39 mmol/L (H) 23 - 29 mmol/L [facility] (01252) Creatinine (U) 62 mg/dL (N) [facility] h [Mass/Vol] [facility] (81118) Creatinine 1.01 mg/dL (N) [facility] h [Mass/Vol] [facility] (59951) Eosinophils 0.037 10*3/uL (N) 0.05 - 0.5 [facility] alth (Bld) [#/Vol] 10*3/uL [facility] (65211) Eosinophils/100 0.3 % (N) 1 - 4 % [facility] WBC (Bld) [facility] (17533) Erythrocyte 14.7 % (N) 11.6 - 14.6 % [facility] distribution [facility] width (RBC) [facility] [Ratio] (95268) Gamma globulin 0.9 g/dL (N) 0.7 - 1.6 g/dL [facility] [Mass/Vol] [facility] (26340) GFR/1.73 sq M 73 (N) 90 - 120 [facility] alth predicted among mL/min/{1.73_m2} mL/min/{1.73_m2} Center o f [facility] MDRD [facility] (S/P/Bld) [Vol (45583) rate/Area] GFR/1.73 sq 63 (N) 90 - 120 [facility] th M.predicted MDRD mL/min/{1.73_m2} mL/min/{1.73_m2} [facility] (S/P/Bld) [Vol [facility] rate/Area] (26843) Glucose 97 mg/dL (N) 60 - 125 mg/dL [facility] [Mass/Vol] [facility] (56583) Hematocrit (Bld) 49.4 % (H) 36.1 - 50.3 % [facility] [Volume [facility]] [facility] (84972) Hemoglobin (Bld) 15.4 g/dL (N) 12.1 - 17.2 g/dL [facility] [Mass/Vol] [facility] (05548) Lymphocytes 1.218 10*3/uL (N) 0.9 - 2.9 [facility] alth (Bld) [#/Vol] 10*3/uL [facility] (18414) Lymphocytes/100 9.9 % (N) 20 - 40 % [facility] WBC (Bld) [facility] (97171) MCH (RBC) 26.9 pg (L) 27 - 31 pg [facility] [Entitic mass] [facility] (75328) MCHC (RBC) 31.2 g/dL (L) 32 - 36 g/dL [facility] alth [Mass/Vol] [facility] (05230) MCV (RBC) 86.4 fL (N) 80 - 100 fL [facility] [Entitic vol] [facility] (89976) Monocytes (Bld) 0.726 10*3/uL (N) 0.3 - 0.9 Commun[facility] [#/Vol] 10*3/uL [facility] (06385) Monocytes/100 5.9 % (N) 2 - 8 % [facility] WBC (Bld) [facility] (56845) Neutrophils 10.258 10*3/uL (H) 1.7 - 7 10*3/uL [facility] (Bld) [#/Vol] [facility] (71249) Neutrophils/100 83.4 % (N) 40 - 60 % [facility] WBC (Bld) [facility] (62942) Platelet mean 10.0 fL (N) 7.2 - 11.7 fL [facility] volume (Bld) [facility] [Entitic vol] [facility] (86003) Platelets (Bld) 348 10*3/uL (N) 150 - 450 [facility] [#/Vol] 10*3/uL [facility] (19067) Potassium 4.5 mmol/L (N) 3.7 - 5.2 mmol/L [facility] [Moles/Vol] [facility] (12467) Protein (U) 17 mg/dL (N) 0 - 20 mg/dL [facility] [Mass/Vol] [facility] (72483) Protein 6.9 g/dL (N) 6.4 - 8.3 g/dL [facility] [Mass/Vol] [facility] (17914) Protein no information (no code) [facility] Fractions Center [facility] [Interp] [facility] (71439) Protein/Creatini 274 (H) [facility] ne (U) [Mass [facility] ratio] [facility] (98028) RBC (Bld) 5.72 10*6/uL (H) 4.2 - 6.1 [facility] [#/Vol] 10*6/uL [facility] (38637) Sodium 141 mmol/L (N) 135 - 145 mmol/L [facility] [Moles/Vol] [facility] (61905) Urea nitrogen 20 mg/dL (N) 7 - 20 mg/dL [facility] [Mass/Vol] [facility] (26065) Urea NOT APPLICABLE (no code) [facility] nitrogen/Creatin [facility] ine [Mass ratio] [facility] (29427) WBC (Bld) 12.3 10*3/uL (H) 3.5 - 10.5 [facility] [#/Vol] 10*3/uL [facility] (19814) No panel information on 2019-05-05 CLINICAL MENOPAUSAL (N) [facility] INFORMATION: [facility] (65150) COMMENT no information (no code) [facility] (74978) 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 (N) Critical access hospital stain Nom [facility] (Cvx/Vag) [ID] [facility] (33453) Date of previous NONE (N) [facility] biopsy [facility] (33192) Date of previous no information (N) [facility] PAP smear [facility] (89192) HPV E6+E7 mRNA Not Detected (N) [facility] LORENZO+probe Ql [facility] (Cvx) [facility] (30122) Last menstrual MENOPAUSAL (N) [facility] period start [facility] date [facility] (01042) Microscopic no information (N) [facility] observation Cyto [facility] stain Nom (Cvx) [facility] (95655) Specimen source Cervix (N) [facility] Cyto stain Nom [facility] (Cvx/Vag) [facility] (82735) Statement of no information (N) [facility] adequacy Cyto [facility] stain (Cvx/Vag) [facility] [Interp] (09672) No panel information on 2019-04-22 Albumin 4.2 g/dL (N) 3.4 - 5.4 g/dL [facility] [Mass/Vol] [facility] (20827) Albumin/Globulin 1.4 {ratio} (N) 1 - 2.5 {ratio} Comm [facility] [Mass ratio] [facility] (56961) ALP [Catalytic 81 U/L (N) 44 - 147 U/L [facility] activity/Vol] [facility] (58133) ALT [Catalytic 11 U/L (N) 4 - 40 U/L [facility] activity/Vol] [facility] (03864) AST [Catalytic 12 U/L (N) 10 - 34 U/L [facility] activity/Vol] [facility] (18643) Basophils (Bld) 0.039 10*3/uL (N) 0 - 0.3 10*3/uL [facility] [#/Vol] [facility] (46836) Basophils/100 0.5 % (N) 0.5 - 1 % [facility] alth WBC (Bld) [facility] (78472) Bilirubin 0.4 mg/dL (N) 0.1 - 1.2 mg/dL [facility] [Mass/Vol] [facility] (70865) Calcium 9.4 mg/dL (N) 8.5 - 10.2 mg/dL [facility] [Mass/Vol] [facility] (34579) Chloride 97 mmol/L (L) 95 - 106 mmol/L [facility] [Moles/Vol] [facility] (49682) CO2 [Moles/Vol] 38 mmol/L (H) 23 - 29 mmol/L [facility] (86294) Creatinine 1.13 mg/dL (H) [facility] [Mass/Vol] [facility] (62997) Eosinophils 0.2 10*3/uL (N) 0.05 - 0.5 [facility] (Bld) [#/Vol] 10*3/uL [facility] (70350) Eosinophils/100 2.6 % (N) 1 - 4 % [facility] WBC (Bld) [facility] (90980) Erythrocyte 13.6 % (N) 11.6 - 14.6 % [facility] ealth distribution [facility] width (RBC) [facility] [Ratio] (47424) GFR/1.73 sq M 64 (N) 90 - 120 [facility] alth predicted among mL/min/{1.73_m2} mL/min/{1.73_m2} [facility] MDRD [facility] (S/P/Bld) [Vol (95775) rate/Area] GFR/1.73 sq 55 (L) 90 - 120 [facility] th M.predicted MDRD mL/min/{1.73_m2} mL/min/{1.73_m2} [facility] (S/P/Bld) [Vol [facility] rate/Area] (87678) Globulin (S) 2.9 g/dL (N) 2 - 3.5 g/dL [facility] [Mass/Vol] [facility] (27263) Glucose 123 mg/dL (H) 60 - 125 mg/dL [facility] [Mass/Vol] [facility] (05054) HbA1c (Bld) 6.3 (H) [facility] h [Mass fraction] [facility] (98978) Hematocrit (Bld) 49.6 % (H) 36.1 - 50.3 % [facility] [[facility]] [facility] (95757) Hemoglobin (Bld) 15.8 g/dL (H) 12.1 - 17.2 g/dL [facility] [Mass/Vol] [facility] (11082) Lymphocytes 1.679 10*3/uL (N) 0.9 - 2.9 [facility] alth (Bld) [#/Vol] 10*3/uL [facility] (57938) Lymphocytes/100 21.8 % (N) 20 - 40 % [facility] WBC (Bld) [facility] (50953) MCH (RBC) 28.1 pg (N) 27 - 31 pg [facility] [Entitic mass] [facility] (01310) MCHC (RBC) 31.9 g/dL (L) 32 - 36 g/dL [facility]th [Mass/Vol] [facility] (60949) MCV (RBC) 88.1 fL (N) 80 - 100 fL [facility] [Entitic vol] [facility] (14663) Monocytes (Bld) 0.631 10*3/uL (N) 0.3 - 0.9 [facility] [#/Vol] 10*3/uL [facility] (51034) Monocytes/100 8.2 % (N) 2 - 8 % [facility] al[facility] WBC (Bld) [facility] (72194) Natriuretic 82 pg/mL (N) 0 - 100 pg/mL [facility] e[facility] peptide B (Bld) [facility] [Mass/Vol] [facility] (27207) Neutrophils 5.151 10*3/uL (N) 1.7 - 7 10*3/uL [facility] (Bld) [#/Vol] [facility] (85242) Neutrophils/100 66.9 % (N) 40 - 60 % [facility] WBC (Bld) [facility] (83754) Platelet mean 9.9 fL (N) 7.2 - 11.7 fL [facility] volume (Bld) [facility] [Entitic vol] [facility] (88907) Platelets (Bld) 331 10*3/uL (N) 150 - 450 [facility] [#/Vol] 10*3/uL [facility] (89542) Potassium 4.3 mmol/L (N) 3.7 - 5.2 mmol/L [facility] [Moles/Vol] [facility] (25688) Protein 7.1 g/dL (N) 6.4 - 8.3 g/dL [facility] [Mass/Vol] [facility] (79304) RBC (Bld) 5.63 10*6/uL (H) 4.2 - 6.1 [facility] [#/Vol] 10*6/uL [facility] () Sodium 142 mmol/L (N) 135 - 145 mmol/L [facility] [Moles/Vol] [facility] (39802) TSH Qn 2.13 m[IU]/L (N) 0.4 - 4 m[IU]/L [facility] () Urea nitrogen 20 mg/dL (N) 7 - 20 mg/dL [facility] [Mass/Vol] [facility] () Urea 18 mg/mg (N) 6 - 22 mg/mg [facility] nitrogen/Creatin [facility] [Mass ratio] [facility] () WBC (Bld) 7.7 10*3/uL (N) 3.5 - 10.5 [facility] [#/Vol] 10*3/uL [facility] (48140) No panel information on 2018-12-23 Albumin 3.8 g/dL (N) 3.4 - 5.4 g/dL [facility] [Mass/Vol] [facility] () Albumin/Globulin 1.4 {ratio} (N) 1 - 2.5 {ratio} Comm [facility] [Mass ratio] [facility] () ALP [Catalytic 63 U/L (N) 44 - 147 U/L [facility] activity/Vol] [facility] (97271) ALT [Catalytic 28 U/L (N) 4 - 40 U/L [facility]alth activity/Vol] [facility] (19915) AST [Catalytic 19 U/L (N) 10 - 34 U/L [facility] activity/Vol] [facility] () Basophils (Bld) 0.053 10*3/uL (N) 0 - 0.3 10*3/uL [facility] Health [#/Vol] [facility] (25720) Basophils/100 0.7 % (N) 0.5 - 1 % [facility] WBC (Bld) [facility] (85647) Bilirubin 0.4 mg/dL (N) 0.1 - 1.2 mg/dL [facility] [Mass/Vol] [facility] (42120) Calcium 9.6 mg/dL (N) 8.5 - 10.2 mg/dL [facility] [Mass/Vol] [facility] (26251) Chloride 101 mmol/L (N) 95 - 106 mmol/L [facility] [Moles/Vol] [facility] (54990) Cholesterol 235 mg/dL (H) 180 - 200 mg/dL [facility] [Mass/Vol] [facility] (13570) Cholesterol in 42 mg/dL (L) [facility] h HDL [Mass/Vol] [facility] (82499) Cholesterol in 163 mg/dL (H) 0 - 100 mg/dL [facility] LDL [Mass/Vol] [facility] (95714) Cholesterol non 193 mg/dL (H) Critical access hospital HDL [Mass/Vol] [facility] (30143) Cholesterol.tota 5.6 {ratio} (H) [facility] l/Cholesterol in [facility] HDL [Mass ratio] [facility] (52661) CO2 [Moles/Vol] 37 mmol/L (H) 23 - 29 mmol/L [facility] (61634) Creatinine 1.04 mg/dL (N) [facility] [Mass/Vol] [facility] (09199) Eosinophils 0.228 10*3/uL (N) 0.05 - 0.5 [facility]th (Bld) [#/Vol] 10*3/uL [facility] (80971) Eosinophils/100 3.0 % (N) 1 - 4 % [facility] WBC (Bld) [facility] (78284) Erythrocyte 13.2 % (N) 11.6 - 14.6 % [facility] ealth distribution [facility] width (RBC) [facility] [Ratio] (55218) GFR/1.73 sq M 71 (N) 90 - 120 [facility] al[facility] predicted among mL/min/{1.73_m2} mL/min/{1.73_m2} [facility] [place] MDRD [facility] (S/P/Bld) [Vol (91060) rate/Area] GFR/1.73 sq 61 (N) 90 - 120 [facility] th M.predicted MDRD mL/min/{1.73_m2} mL/min/{1.73_m2} [facility] (S/P/Bld) [Vol [facility] rate/Area] (69650) Globulin (S) 2.8 g/dL (N) 2 - 3.5 g/dL [facility] [Mass/Vol] [facility] (11777) Glucose 99 mg/dL (N) 60 - 125 mg/dL [facility] [Mass/Vol] [facility] (61586) Hematocrit (Bld) 45.0 % (N) 36.1 - 50.3 % [facility] [Volume [facility] (93917) Hemoglobin (Bld) 14.9 g/dL (N) 12.1 - 17.2 g/dL [facility] [Mass/Vol] [facility] (49669) Lymphocytes 1.786 10*3/uL (N) 0.9 - 2.9 [facility] (Bld) [#/Vol] 10*3/uL [facility] (91505) Lymphocytes/100 23.5 % (N) 20 - 40 % [facility] WBC (Bld) [facility] (81007) MCH (RBC) 30.7 pg (N) 27 - 31 pg Critical access hospital [Entitic mass] [facility] (04396) MCHC (RBC) 33.1 g/dL (N) 32 - 36 g/dL [facility] [Mass/Vol] [facility] (38131) MCV (RBC) 92.8 fL (N) 80 - 100 fL [facility] [Entitic vol] [facility] (81872) Monocytes (Bld) 0.692 10*3/uL (N) 0.3 - 0.9 [facility] [#/Vol] 10*3/uL [facility] (44882) Monocytes/100 9.1 % (N) 2 - 8 % [facility] WBC (Bld) [facility] (95678) Neutrophils 4.841 10*3/uL (N) 1.7 - 7 10*3/uL [facility] (Bld) [#/Vol] [facility] (47060) Neutrophils/100 63.7 % (N) 40 - 60 % [facility] WBC (Bld) [facility] (77907) Platelet mean 9.7 fL (N) 7.2 - 11.7 fL [facility] volume (Bld) [facility] [Entitic vol] [facility] (45373) Platelets (Bld) 287 10*3/uL (N) 150 - 450 [facility] [#/Vol] 10*3/uL [facility] (02254) Potassium 4.5 mmol/L (N) 3.7 - 5.2 mmol/L [facility] [Moles/Vol] [facility] (67112) Protein 6.6 g/dL (N) 6.4 - 8.3 g/dL [facility] [Mass/Vol] [facility] (74590) RBC (Bld) 4.85 10*6/uL (N) 4.2 - 6.1 [facility] lth [#/Vol] 10*6/uL [facility] (06633) Sodium 142 mmol/L (N) 135 - 145 mmol/L [facility] [Moles/Vol] [facility] (87682) Triglyceride 153 mg/dL (H) 0 - 150 mg/dL [facility] [Mass/Vol] [facility] (50211) Urea nitrogen 15 mg/dL (N) 7 - 20 mg/dL [facility] [Mass/Vol] [facility] (92249) Urea NOT APPLICABLE (no code) [facility] nitrogen/Creatin [facility] [Mass ratio] [facility] (48536) WBC (Bld) 7.6 10*3/uL (N) 3.5 - 10.5 [facility] th [#/Vol] 10*3/uL [facility] (09362) No panel information on 2018-01-08 Albumin mass 4.2 g/dL (N) 3.4 - 5.4 g/dL [facility] (64390) Albumin/Globulin 1.4 (N) [facility] lt mass ratio [facility] (55541) ALP enzyme 79 U/L (N) 44 - 147 U/L [facility] act/vol [facility] (04510) ALT enzyme 17 U/L (N) 4 - 40 U/L Critical access hospital act/vol [facility] (75596) AST enzyme 16 U/L (N) 10 - 34 U/L [facility] act/[facility] (82814) Basophils Auto 0.042 10*3/uL (N) 0 - 0.3 10*3/uL [facility] #/vol (Bld) [facility] (28690) Basophils/100 0.6 % (N) 0.5 - 1 % Critical access hospital WBC Auto (Bld) [facility] (30927) Bilirubin mass 0.5 mg/dL (N) 0.1 - 1.2 mg/dL [facility] (85715) Calcium mass 9.6 mg/dL (N) 8.5 - 10.2 mg/dL [facility] (59870) Chloride molar 102 mmol/L (N) 95 - 106 mmol/L [facility] (44752) Cholesterol in 31 mg/dL (L) [facility] HDL mass [facility] (14135) Cholesterol in 107 (H) [facility] h LDL mass conc [facility] (67460) Cholesterol mass 168 mg/dL (N) 180 - 200 mg/dL [facility] (47878) Cholesterol non 137 (H) Critical access hospital HDL mass [facility] (26386) Cholesterol.tota 5.4 (H) [facility] l/Cholesterol in [facility] HDL mass [facility] (25389) CK enzyme 109 U/L (N) [facility] act/vol [facility] (60789) CO2 molar conc 31 mmol/L (N) 23 - 29 mmol/L [facility] (62917) Creatinine mass 1.00 mg/dL (N) Critical access hospital conc [facility] (30696) Eosinophils Auto 0.133 10*3/uL (N) 0.05 - 0.5 [facility] #/vol (Bld) 10*3/uL [facility] (86680) Eosinophils/100 1.9 % (N) 1 - 4 % [facility] WBC Auto (Bld) [facility] (59622) Erythrocyte 12.7 % (N) 11.6 - 14.6 % [facility] e[facility] distribution [facility] Auto Ratio [facility] (RBC) (99949) GFR/1.73 sq M 75 (N) 90 - 120 Critical access hospital predicted among mL/min/{1.73_m2} mL/min/{1.73_m2} Center o f [facility] MDRD vol [facility] rate/area (80325) (S/P/Bld) GFR/1.73 sq 65 (N) 90 - 120 Critical access hospital M.predicted MDRD mL/min/{1.73_m2} mL/min/{1.73_m2} [facility] rate/area [facility] (18796) Globulin 3.0 (N) [facility] Calculated mass [facility] (S) [facility] (54184) Glucose mass 93 mg/dL (N) 60 - 125 mg/dL [facility] (35131) Hematocrit Auto 42.8 % (N) 36.1 - 50.3 % [facility] Volume Fraction [facility] (Bld) [facility] (43648) Hemoglobin mass 14.4 g/dL (N) 12.1 - 17.2 g/dL [facility] conc (Bld) [facility] (96287) LYME AB SCREEN <0.90 (N) [facility] (70620) Lymphocytes Auto 2.03 10*3/uL (N) 0.9 - 2.9 [facility] #/vol (Bld) 10*3/uL [facility] (04032) Lymphocytes/100 29.0 % (N) 20 - 40 % [facility] WBC Auto (Bld) [facility] (20631) MCH Auto Entitic 30.9 pg (N) 27 - 31 pg [facility] mass (RBC) [facility] (55155) MCHC Auto mass 33.6 g/dL (N) 32 - 36 g/dL [facility] conc (RBC) [facility] (60134) MCV Auto Entitic 91.8 fL (N) 80 - 100 fL [facility] volume (RBC) [facility] (79287) Monocytes Auto 0.511 10*3/uL (N) 0.3 - 0.9 [facility] #/vol (Bld) 10*3/uL [facility] (99379) Monocytes/100 7.3 % (N) 2 - 8 % [facility] WBC Auto (Bld) [facility] (44977) Neutrophils Auto 4.284 10*3/uL (N) 1.7 - 7 10*3/uL [facility] #/vol (Bld) [facility] (92064) Neutrophils/100 61.2 % (N) 40 - 60 % [facility] WBC Auto (Bld) [facility] (84467) Platelet mean 9.5 fL (N) 7.2 - 11.7 fL [facility] volume Auto Center [facility] Entitic [facility] (Bld) (32183) Platelets Auto 310 10*3/uL (N) 150 - 450 [facility] #/vol (Bld) 10*3/uL [facility] (71976) Potassium molar 4.0 mmol/L (N) 3.7 - 5.2 mmol/L [facility] conc [facility] (04248) Protein mass 7.2 g/dL (N) 6.4 - 8.3 g/dL [facility] conc [facility] (78913) RBC Auto #/vol 4.66 10*6/uL (N) 4.2 - 6.1 [facility] (Bld) 10*6/uL [facility] (46301) Sodium molar 143 mmol/L (N) 135 - 145 mmol/L [facility] conc [facility] (49224) Triglyceride 187 mg/dL (H) 0 - 150 mg/dL [facility] (73706) Urea nitrogen 16 mg/dL (N) 7 - 20 mg/dL [facility] (51944) Urea NOT APPLICABLE (no code) [facility] nitrogen/Creatin [facility] (91449) WBC Auto #/vol 7.0 10*3/uL (N) 3.5 - 10.5 [facility] (Bld) 10*3/uL [facility] (22479) No panel information on 2017-02-20 Aldosterone 6.6 (no code) 02-20-2017 Not Available [Mass/Vol] 03:59-0400 (10877) Renin (P) 0.300 (no code) 02-20-2017 Not Available [Catalytic 15:26-0400 (48344) activity/Vol] No panel information on 2017-02-17 Cortisol AM peak 1.4 (L) 02-17-2017 Not Avail able specimen 17:00-0400 (08790) [Mass/Vol] No panel information on 2017-02-15 Albumin 4.5 g/dL (no code) 3.4 - 5.4 g/dL 02-15-2017 Not Niurka ilable [Mass/Vol] 07:48-0400 (51543) Albumin/Globulin 1.7 {ratio} (no code) 1 - 2.5 {ratio} 7 Not Available [Mass ratio] 07:51-0400 (72304) ALP [Catalytic 74 U/L (no code) 44 - 147 U/L 02-15-2017 Not Available activity/Vol] 07:51-0400 (75984) ALT [Catalytic 15 U/L (no code) 4 - 40 U/L 02-15-2017 Not Av ailable activity/Vol] 07:51-0400 (00174) AST [Catalytic 13 U/L (no code) 10 - 34 U/L 02-15-2017 Not A vailable activity/Vol] 07:51-0400 (74806) Basophils (Bld) 0.0 10*3/uL (no code) 0 - 0.3 10*3/uL 02-15-2017 Not Available [#/Vol] 07:32-0400 (03175) Basophils/100 0 % (no code) 0.5 - 1 % 02-15-2017 Not Avai lable WBC (Bld) 07:320400 (54544) Bilirubin 0.3 mg/dL (no code) 0.1 - 1.2 mg/dL 02-15-2017 Not Av ailable [Mass/Vol] 07:48-0400 (98282) Calcium 9.6 mg/dL (no code) 8.5 - 10.2 mg/dL 02-15-2017 Not A vailable [Mass/Vol] 07:480400 (68517) Chloride 98 mmol/L (no code) 95 - 106 mmol/L 02-15-2017 Not Av ailable [Moles/Vol] 07:33-0400 (96823) Cholesterol 263 mg/dL (H) 180 - 200 mg/dL 02-15-2017 Not Available [Mass/Vol] 08:000400 (27276) Cholesterol in 39 mg/dL (L) 02-15-2017 Not Availab le HDL [Mass/Vol] 09:040400 (38552) Cholesterol in 201 mg/dL (H) 0 - 100 mg/dL 02-15-2017 Not Available LDL [Mass/Vol] 09:040400 (69466) Cholesterol in 23 mg/dL (no code) 02-15-2017 Not Availab le VLDL [Mass/Vol] 08:00-0400 (36879) CO2 [Moles/Vol] 27 mmol/L (no code) 23 - 29 mmol/L 02-15-2017 N ot Available 07:480400 (09483) Comment: Comment (no code) 02-15-2017 Not Available 09:040400 (59478) Creatinine 0.87 mg/dL (no code) 02-15-2017 Not Available [Mass/Vol] 07:51-0400 (34372) Eosinophils 0.0 10*3/uL (no code) 0.05 - 0.5 02-15-2017 Not Niurka ilable (Bld) [#/Vol] 10*3/uL 07:320400 (96191) Eosinophils/100 1 % (no code) 1 - 4 % 02-15-2017 Not Av ailable WBC (Bld) 07:320400 (76053) Erythrocyte 13.1 % (no code) 11.6 - 14.6 % 02-15-2017 Not Av ailable distribution 07:320400 (91165) width (RBC) [Ratio] GFR/1.73 sq 77 (no code) 02-15-2017 Not Available M.predicted 07:51-0400 (16756) CKD-EPI (S/P/Bld) [Vol rate/Area] GFR/1.73 sq 89 (no code) 02-15-2017 Not Available M.predicted 07:51-0400 (06739) CKD-EPI (S/P/Bld) [Vol rate/Area] Globulin (S) 2.6 g/dL (no code) 2 - 3.5 g/dL 02-15-2017 Not Av ailable [Mass/Vol] 07:51-0400 (01012) Glucose 110 mg/dL (H) 60 - 125 mg/dL 02-15-2017 Not Niurka ilable [Mass/Vol] 07:48-0400 (95261) Hematocrit (Bld) 43.3 % (no code) 36.1 - 50.3 % 02-15-2017 N ot Available [Volume 07:320400 (60490) fraction] Hemoglobin (Bld) 14.6 g/dL (no code) 12.1 - 17.2 g/dL 02-15-2017 Not Available [Mass/Vol] 07:320400 (92268) Immature 0.1 10*3/uL (no code) 0 - 0.2 10*3/uL 02-15-2017 Not Available granulocytes 07:320400 (01198) (Bld) [#/Vol] Immature 1 % (no code) 0 - 0.5 % 02-15-2017 Not Availabl e granulocytes/100 07:320400 (91172) WBC (Bld) Lymphocytes 1.6 10*3/uL (no code) 0.9 - 2.9 02-15-2017 Not Avai lable (Bld) [#/Vol] 10*3/uL 07:32-0400 (55446) Lymphocytes/100 22 % (no code) 20 - 40 % 02-15-2017 Not Av ailable WBC (Bld) 07:32-0400 (90498) MCH (RBC) 30.0 pg (no code) 27 - 31 pg 02-15-2017 Not Availab le [Entitic mass] 07:32-0400 (53149) MCHC (RBC) 33.7 g/dL (no code) 32 - 36 g/dL 02-15-2017 Not Avai lable [Mass/Vol] 07:32-0400 (14922) MCV (RBC) 89 fL (no code) 80 - 100 fL 02-15-2017 Not Availa ble [Entitic vol] 07:32-0400 (45941) Monocytes (Bld) 0.4 10*3/uL (no code) 0.3 - 0.9 02-15-2017 Not Available [#/Vol] 10*3/uL 07:32-0400 (02194) Monocytes/100 6 % (no code) 2 - 8 % 02-15-2017 Not Avai lable WBC (Bld) 07:32-0400 (80419) Neutrophils 5.1 10*3/uL (no code) 1.7 - 7 10*3/uL 02-15-2017 No t Available (Bld) [#/Vol] 07:32-0400 (25925) Neutrophils/100 70 % (no code) 40 - 60 % 02-15-2017 Not Av ailable WBC (Bld) 07:32-0400 (50618) Platelets (Bld) 366 10*3/uL (no code) 150 - 450 02-15-2017 Not Available [#/Vol] 10*3/uL 07:32-0400 (12220) Potassium 4.4 mmol/L (no code) 3.7 - 5.2 mmol/L 02-15-2017 Not Available [Moles/Vol] 07:41-0400 (28494) Protein 7.1 g/dL (no code) 6.4 - 8.3 g/dL 02-15-2017 Not Niurka ilable [Mass/Vol] 07:51-0400 (03997) RBC (Bld) 4.87 10*6/uL (no code) 4.2 - 6.1 02-15-2017 Not Avail able [#/Vol] 10*6/uL 07:32-0400 (35126) Sodium 141 mmol/L (no code) 135 - 145 mmol/L 02-15-2017 Not Available [Moles/Vol] 07:36-0400 (59866) Triglyceride 115 mg/dL (no code) 0 - 150 mg/dL 02-15-2017 Not A vailable [Mass/Vol] 08:00-0400 (39813) Urea nitrogen 13 mg/dL (no code) 7 - 20 mg/dL 02-15-2017 Not A vailable [Mass/Vol] 07:48-0400 (20122) Urea 15 mg/mg (no code) 6 - 22 mg/mg 02-15-2017 Not Avail able nitrogen/Creatin 07:51-0400 (59884) ine [Mass ratio] WBC (Bld) 7.2 10*3/uL (no code) 3.5 - 10.5 02-15-2017 Not Avail able [#/Vol] 10*3/uL 07:32-0400 (29618) renin & aldosterone, plasma on 2017-02-14 Aldosterone 6.6 (no code) 02-14-2017 [facility] 13:00-0400 [facility] (07961) Renin 0.300 ng/mL/h (no code) 0.3 - 3.7 02-14-2017 [facility]/h 13:000400 [facility] (92715) lipid panel on 2017-02-14 Cholesterol 263 mg/dL (no code) 0 - 240 mg/dL 02-14-2017 [facility]y Health 13:00-0400 [facility] (34098) Comment: no information (no code) 02-14-2017 [facility] 13:000400 [facility] (74725) HDL Cholesterol 39 mg/dL (no code) 02-14-2017 [facility] 13:00-0400 [facility] (08860) LDL Cholesterol 201 mg/dL (no code) 0 - 100 mg/dL 02-14-2017 [facility] 13:00-0400 [facility] (12841) Triglyceride 115 mg/dL (no code) 0 - 150 mg/dL 02-14-2017 [facility] 13:00-0400 [facility] (42757) VLDL Cholesterol 23 (no code) 02-14-2017 [facility] Dionicio 13:00040 [facility] (46669) cortisol, serum-am on 2017-02-14 Cortisol - AM 1.4 (no code) 02-14-2017 [facility] 13:00040 [facility] (48311) cmp on 2017-02-14 Alanine 15 U/L (no code) 10 - 40 U/L 02-14-2017 [facility] aminotransferase 13:00040 Center of (ALT) [facility] (63600) Albumin 4.5 g/dL (no code) 3.5 - 5.5 g/dL 02-14-2017 [facility] 13:00040 [facility] (21266) Albumin/Globulin 1.7 {ratio} (no code) 0.8 - 2 {ratio} 7 [facility] Ratio 13:000400 [facility] (64656) Alkaline 74 U/L (no code) 44 - 147 U/L 02-14-2017 [facility] phosphatase 13:000400 Center of (ALP) [facility] (87948) Aspartate 13 U/L (no code) 10 - 34 U/L 02-14-2017 [facility] aminotransferase 13:00040 Center of (AST) [facility] (27426) Bilirubin 0.3 mg/dL (no code) 0.3 - 1.9 mg/dL 02-14-2017 [facility] (total) 13:00-0400 [facility] (30253) BUN/Creatinine 15 mg/mg (no code) 10 - 20 mg/mg 02-14-2017 [facility] Health Ratio 13:00-0400 [facility] (49950) Calcium 9.6 mg/dL (no code) 9 - 11 mg/dL 02-14-2017 [facility] 13:00040 [facility] (15141) Chloride 98 mmol/L (no code) 95 - 106 mmol/L 02-14-2017 [facility] 13:00-0400 [facility] (27268) CO2 27 mmol/L (no code) 23 - 29 mmol/L 02-14-2017 [facility] 13:00-0400 [facility] (08999) Creatinine 0.87 mg/dL (no code) 02-14-2017 Critical access hospital 13:000400 [facility] (31097) eGFR (black) 89 (no code) 90 - [id number] 02-14-2017 [facility] mL/min/{1.73_m2} mL/min/{1.73_m2} 13:000400 [facility] (22480) eGFR (non-black) 77 (no code) 90 - [id number] 02-14-2017 [facility] mL/min/{1.73_m2} mL/min/{1.73_m2} 13:000400 [facility] (10639) Globulin 2.6 g/dL (no code) 2.1 - 3.9 g/dL 02-14-2017 [facility] 13:00-0400 [facility] (04063) Glucose 110 mg/dL (no code) 60 - 125 mg/dL 02-14-2017 [facility] 13:00-0400 [facility] (86928) Potassium 4.4 mmol/L (no code) 3.5 - 5.1 mmol/L 02-14-2017 [facility] 13:00-0400 [facility] (44432) Protein 7.1 g/dL (no code) 6.4 - 8.3 g/dL 02-14-2017 [facility] 13:00-0400 [facility] (78337) Sodium 141 mmol/L (no code) 135 - 147 mmol/L 02-14-2017 [facility] 13:00-0400 [facility] (01636) Urea nitrogen 13 mg/dL (no code) 7 - 20 mg/dL 02-14-2017 [facility] 13:00-0400 [facility] (44822) cbc on 2017-02-14 Basophils 0.0 10*3/uL (no code) 0 - 0.2 10*3/uL 02-14-2017 [facility] 13:00-0400 [facility] (62063) Basophils/100 0 % (no code) 0.5 - 1 % 02-14-2017 [facility] leukocytes 13:00-0400 [facility] (54976) Eosinophils 0.0 10*3/uL (no code) 0.05 - 1.5 02-14-2017 [facility] 10*3/uL 13:00-0400 [facility] (78189) Eosinophils/100 1 % (no code) 1 - 4 % 02-14-2017 [facility] leukocytes 13:00-0400 [facility] (69307) Erythrocytes 4.87 10*6/uL (no code) 4.2 - 6.1 02-14-2017 [facility] (RBC) 10*6/uL 13:00-0400 [facility] (14242) Hematocrit (HCT) 43.3 % (no code) 39 - 51 % 02-14-2017 [facility] 13:00-0400 [facility] (95700) Hemoglobin (HGB) 14.6 g/dL (no code) 12 - 18 g/dL 02-14-2017 [facility] 13:00-0400 [facility] (60625) Immature Grans 0.1 (no code) 02-14-2017 [facility] (Abs) 13:000400 [facility] (40402) Immature 1 (no code) 02-14-2017 [facility] Granulocytes 13:00-0400 [facility] (17855) Lymphocytes 1.6 10*3/uL (no code) 0.85 - 4.1 02-14-2017 [facility] 10*3/uL 13:00-0400 [facility] (37119) Lymphocytes/100 22 % (no code) 20 - 40 % 02-14-2017 [facility] leukocytes 13:00-0400 [facility] (16242) MCH 30.0 pg (no code) 27 - 31 pg 02-14-2017 [facility] 13:00-0400 [facility] (25940) MCHC 33.7 g/dL (no code) 32 - 36 g/dL 02-14-2017 [facility] 13:000400 [facility] (30814) MCV 89 fL (no code) 80 - 100 fL 02-14-2017 [facility] 13:000400 [facility] (73669) Monocytes 0.4 10*3/uL (no code) 0.2 - 1.1 02-14-2017 [facility] 10*3/uL 13:000400 [facility] (55638) Monocytes/100 6 % (no code) 2 - 8 % 02-14-2017 [facility] leukocytes 13:00040 [facility] (33823) Neutrophils 5.1 10*3/uL (no code) 1.5 - 7.8 02-14-2017 [facility] 10*3/uL 13:000400 [facility] (39309) Neutrophils/100 70 % (no code) 40 - 60 % 02-14-2017 [facility] Health leukocytes 13:000400 [facility] (78545) Platelets 366 10*3/uL (no code) 150 - 400 02-14-2017 [facility] 10*3/uL 13:000400 [facility] (84576) RDW-CA 13.1 % (no code) 11 - 15 % 02-14-2017 [facility] 13:000400 [facility] (34623) WBC (Leukocytes) 7.2 10*3/uL (no code) 3.8 - 10.8 02-14-[address] [facility] 10*3/uL 13:000400 [facility] (00959) Vital Signs Vital Sign Value Interpretation Reference Date Time Care Prov ider Facility (Normalized) (Normalized) Range BMI (Body Mass 34.77 kg/m2 (no code) 15 - 25 kg/m2 03-18-2018 [facility] Index) 17:10-0500 MARCY 31242 [facility] (63640) BMI (Body Mass 33.76 kg/m2 (no code) 15 - 25 kg/m2 01-07-2018 [facility] Index) 11:000400 22823 [facility] (22862) BMI (Body Mass 34.27 kg/m2 (no code) 15 - 25 kg/m2 07-28-2017 [facility] Index) 10:20-0400 08785 [facility] (40959) BMI (Body Mass 34.14 kg/m2 (no code) 15 - 25 kg/m2 07-10-2017 [facility] Index) 14:20-0400 83599 [facility] (97618) BMI (Body Mass 33.84 kg/m2 (no code) 15 - 25 kg/m2 01-03-2017 [facility] Index) 16:40-0400 39586 [facility] (04700) Body height 170.18 cm (no code) cm 07-19-2013 [facility] 17:16-0400 [facility] (27265) Body height 169.55 cm (no code) cm 12-12-2011 Doctor [facility]ity 14:40-0400 [facility] (50085) Body 97.9 [degF] (no code) 97.8 - 99.0 03-18-2018 [facility] Temperature [degF] 17:10-0500 MARCY 35010 [facility] (09220) Body 97.7 [degF] (no code) 97.8 - 99.0 01-07-2018 [facility] [degF[facility] 11[facility]00762 [facility] (08536) Body 98.1 [degF] (no code) 97.8 - 99.0 07-28-2017 [facility] Temperature [degF] 10:200400 22395 [facility] (14139) Body 97.6 [degF] (no code) 97.8 - 99.0 07-10-2017 [facility] Temperature [degF] 14:200400 23458 [facility] (79632) Body 98.3 [degF] (no code) 97.8 - 99.0 01-03-2017 [facility] Temperature [degF] 16:40-[address] [place] [address] (21422) Body 97.7 [degF] (no code) 97.8 - 99.0 07-19-2013 Doctor Community temperature [degF] 17:16-0400 [facility] (43016) Body 98.3 [degF] (no code) 97.8 - 99.0 12-12-2011 Doctor [facility] temperature [degF] 14:40-0400 [facility] (08081) Body weight 101.06 kg (no code) kg 07-19-2013 Doctor Co [facility]munity 17:16-0400 [facility] (69353) Body weight 91.4 kg (no code) kg 12-12-2011 Doctor Com munity 14:40-0400 [facility] (99238) Height 170.18 cm (no code) cm 03-18-2018 [facility] Com[facility] nity 17:10-[address] (27145) Height 170.18 cm (no code) cm 01-07-2018 [facility] 11:00-[address] [place] [address] (94991) Height 170.18 cm (no code) cm 07-28-2017 [facility] 10:20-[address] [place] [address] (23040) Height 170.18 cm (no code) cm 07-10-2017 [facility] 14:20-[address] [place] [address] (18212) Height 170.18 cm (no code) cm 01-03-2017 [facility] 16:40-[address] [place] [address] (01187) Weight 100.7 kg (no code) kg 03-18-2018 [facility] Commun ity 17:10-[address] [place] [address] (75257) Weight 97.8 kg (no code) kg 01-07-2018 [facility] ASHLEY C ommunity 11:00-0400 56504 [facility] (57716) Weight 99.25 kg (no code) kg 07-28-2017 [facility] [place] om[facility]ity 10:200400 86635 [facility] (70076) Weight 98.88 kg (no code) kg 07-10-2017 [facility] [place] om[facility] 14:20-0400 01601 [facility] (62626) Weight 98.02 kg (no code) kg 01-03-2017 [facility] [place] ommunity 16:40-0400 05465 [facility] (59784) Interventions No Information Plan of Treatment The [...] Care Provi sharee Organization Date Type 05-26-2019 [facility] Chronic obstructive CRYSTAL PATRICK RIMAN (no [facility] pulmonary disease with phone) CAR E (no phone) 05-26-2019 (acute) exacerbation - 05-26-2019 08-03-2019 [facility] 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) (no phone) 07-02-2019 [facility] Chronic obstructive [facility] (no [facility] - pulmonary disease, phone) (no phone) 07-02-2019 unspecified - 07-02-2019 07-01-2019 [facility] Spinal stenosis, RAFAEL HARTMA N (no [facility] - lumbar region without phone) (no phon e) 07-01-2019 neurogenic - claudication 07-01-2019 06-24-2019 [facility] Spinal stenosis, RAFAEL ELLIS N (no [facility] - lumbar region without phone) (no phon e) 06-24-2019 neurogenic - claudication 06-24-2019 06-17-2019 [facility] Spinal stenosis, RAFAEL Briggs (no [facility] - lumbar region without phone) (no phon e) 06-17-2019 neurogenic - claudication 06-17-2019 06-02-2019 [facility] Lumbago with sciatica, BETHAN Y ASHLEY (no [facility] - right side phone) (no phone) 06-02-2019 [...] RAMIREZ [facility] o [facility]) [facility] (no phone) 07-01-2019 Patient encounter no information LAMONT Briggs ASHLEY (n o [facility] procedure phone) [facility] (no phone) 06-24-2019 Patient encounter no information LAMONT Briggs [facility]SH[facility] (no phone) 06-17-2019 Patient encounter no information LAMONT RAMIREZ [facility]) [facility] (no phone) 06-14-2019 Patient encounter no information LAMONT RAMIREZ MD (no [facility] procedure phone) [facility] (no phone) 06-02-2019 Patient encounter no information LAMONT RAMIREZ MD (no [facility] procedure phone) [facility] (no phone) 06-02-2019 Patient encounter no information (no phone) [facility] (no phone) 05-10-2019 Patient encounter no information CESAR RYAN DO ( no [facility] - procedure phone) (no phone) [facility] [address] 05-10-2019 (no phone) 05-06-2019 Patient encounter no information no name (no phone) no organization name - procedure (no phone) 05-06-2019 05-05-2019 Patient encounter no information LAMONT RAMIREZ MD (no [facility] procedure phone) (no phone) [facility] (no phone) 04-22-2019 Patient encounter no information [...] encounter no information LAMONT ASHLEY (n o [facility] phone) (no phone) 06-29-2019 Telephone encounter no information LAMONT ASHLEY (n o [facility] - phone) (no phone) 06-29-2019 - 06-29-2019 06-07-2019 Telephone encounter no information LAMONT ASHLEY (n o [facility] - phone) (no phone) 06-07-2019 - 06-07-2019 [...] Removal 03/2017 History Hospitaliz Surgery ation History [facility] ([id number]) Summary Purpose eClinicalWorks SubmissioneClinicalWorks SubmissioneClinicalWorks Submission Advance Directives Directive Response Recor ded Date/Time Advance Directives No 6:56am Health Care Power of Pass Worker No 12/01/14 6:56am Resuscitation Status Full Code 12/01/14 6:56am Directive Response Recor ded Date/Time Advance Directives No 12:31pm Health Care Power of Pass Worker No 03/19/17 12:31pm Resuscitation Status Full Code 03/19/17 12:31pm Discharge Instructions Patient Instructions Physician Instructions New, Converted or Re-Newed RX: Call to Patients Pharmacy Instructions start vaginal estrogen after following up with Fenech Additional Follow Up: Yes (1-2 weeks with Fenech and 6-8 weeks. with Fenech) Activity: Activity as Tolerated (no lifting over 15 lbs. ) Nothing Inside Vagina: No Douching, No [place], No Tampons Discharge Diet: No Restrictions Symptoms to Report to : Bleeding Excessive, Pain Increased, Fever Over 101 Degrees F, Heart Beat Irreg/Pounding, Vaginal Bleeding Increase, Pain/Pressure in Shoulder, Vaginal Discharge Foul For Any Problems or Questions: Contact Your Physician Bathing Instructions: Shower No hospital discharge instruction information available. Additional Source Comments This clinical document has been generated using [employer] software that has been certified by the Office of the National Coordinator for Health Information Technology (ONC 15.99.04.3023.Diam.[id number]) and the National Committee for Drilling Superintendent (NCQA, as an eMeasure certified technology). FOR [...] BASED ON T HE PRIMARY CLINICAL RECORDS. [employer]. provides no warranty or guara ntee of the accuracy or completeness of information in this document.The followi information is based on time limited clinical information UNRECOGNIZED CONTENT PROVIDED BELOW FOR UNRECOGNIZED SECTION MEDICAL (GENERAL) HISTORY Type Description Date Medical History hyperlipidemia Medical History anxiety Medical History Allergies Medical History Calculus of gallblad sharee without cholecystitis without obstruction Surgical History heart cath [facility]- normal per record review 05/2009 Surgical History [...] chest co ngestion started 1 week ago [id number]
--- OUTSIDE RECORDS SUMMARY | 2019-08-08 18:58 | XMS REPORT | Continuity of Care Document ---
Demographics Preferred Language Unknown Marital Status Unknown Adventist Affiliation Unknown Race Unknown Ethnic Group Unknown Author Organization Unknown Address Unknown Phone Unavailable Allergies Active Description Code Type Severity Reaction Onset Reported/Identified Relationship to Patient Clinical Status Yes NKANo Known Allergies NKA Miscellaneous Allergy Mild N/A 06/12/2009 Yes No Known Drug Allergies [id number] Drug Allergy Unknown N/A 05/06/2019 Medications There is no data. Problems Date Dx Coded Attending Type Code Diagnosis Diagnosed By 03/20/1099 FREDO DAVIS, RENEE Chavez Ot E27.9 DISORDER OF ADRENAL GLAND, UNSPECIFIED 01/08/2010 SONNY MOERNO DO K 272.4 OTHER AND UNSPECIFIED HYPERLIPIDEMIA 01/08/2010 TIFFANIE GLASS SONNY K 305.1 NONDEPENDENT TOBACCO USE DISORDER 01/08/2010 TIFFANIE GLASS SONNY K 414.00 CORONARY ATHEROSCLEROSIS OF UNSPECIFIED TYPE OF VESSEL [place] OR GRAFT 01/08/2010 WENDI MORENO DOA K 627.8 OTHER SPECIFIED MENOPAUSAL AND POSTMENOPAUSAL DISORDERS 01/08/2010 WENDI MORENO DOA K 272.4 OTHER AND UNSPECIFIED HYPERLIPIDEMIA 01/08/2010 TIFFANIE GLASS SONNY K 305.1 NONDEPENDENT TOBACCO USE DISORDER 01/08/2010 TIFFANIE GLASS SONNY K 414.00 CORONARY ATHEROSCLEROSIS OF UNSPECIFIED TYPE OF VESSEL IVANOF BAY OR GRAFT 01/08/2010 TIFFANIE GLASS SONNY K 627.8 OTHER SPECIFIED MENOPAUSAL AND POSTMENOPAUSAL DISORDERS 01/08/2010 WENDI MORENO DOA K 272.4 OTHER AND UNSPECIFIED HYPERLIPIDEMIA 01/08/2010 TIFFANIE GLASS SONNY K 305.1 NONDEPENDENT TOBACCO USE DISORDER 01/08/2010 TIFFANIE GLASS SONNY K 414.00 CORONARY ATHEROSCLEROSIS OF UNSPECIFIED TYPE OF VESSEL IVANOF BAY OR GRAFT 01/08/2010 TIFFANIE GLASS SONNY K 627.8 OTHER SPECIFIED MENOPAUSAL AND POSTMENOPAUSAL DISORDERS 01/08/2010 WENDI MORENO DOA K 272.4 OTHER AND UNSPECIFIED HYPERLIPIDEMIA 01/08/2010 TIFFANIE GLASS SONNY K 305.1 NONDEPENDENT TOBACCO USE DISORDER 01/08/2010 MORENO DO SONNY K 414.00 CORONARY ATHEROSCLEROSIS OF UNSPECIFIED TYPE OF VESSEL IVANOF BAY OR GRAFT 01/08/2010 WENDI MORENO DOA K [...] LONG-TERM (CURRENT) USE OF OTHER MEDICATIONS 12/12/2011 TIFFNAIE GLASS SONNY K V65.42 COUNSELING - SMOKING [...] DO K 626.4 IRREGULAR MENSTRUAL CYCLE 08/06/2013 WENDI MORENO DOA K 626.4 IRREGULAR MENSTRUAL CYCLE [...] GASTRO-ESOPHAGEAL REFLUX DISEASE WITHOUT 10/07/2016 GHAZAL GAUTHIER WAITER/WAITRESS CAPTAIN Ot K80.20 CALCULUS OF GALLBLADDER W/O CHOLECYSTITI [...] S Ot 618.04 RECTOCELE 12/12/2016 FENE[facility] DO, TIFFAINE S Ot 625.6 FEM STRESS INCONTINENCE 12/12/2016 [...] TIFFANIE PÉREZ DO Ot 618.04 RECTOCELE 12/19/2016 TIFAFNIE PÉREZ DO Ot 625.6 FEM STRESS INCONTINENCE [...] 03/26/2017 RENEE YOO MD Ot Z79.899 OTHER PENITENTIARY (CURRENT) DRUG THERAPY 03/31/2017 RENEE YOO MD [...] 03/31/2017 RENEE YOO MD Ot Z79.899 OTHER PENITENTIARY (CURRENT) DRUG THERAPY 04/25/2017 RENEE YOO MD [...] 04/25/2017 RENEE YOO MD, Ot Z79.899 OTHER HEEL BUFFER (CURRENT) DRUG THERAPY 07/16/2017 SERINA NEGRON Ot [...] ACQUIRED ABSENCE OF OTHER SPECIFIED PART 05/06/2019 [facility] DO, TIFFANIE S Ot 618.01 CYSTOCELE, MIDLINE 05/06/2019 [facility] DO, TIFFANIE [place] Ot 618.04 RECTOCELE 05/06/2019 [facility] DO, TIFFANIE [place] Ot 625.6 FEM STRESS INCONTINENCE 05/06/2019 [facility] DO, TIFFANIE [place] Ot V72.63 PRE-PROCEDURAL LABORATORY EXAMINATION 05/06/2019 [facility] DO, TIFFANIE [place] Ot V74.8 SCREEN-BACTERIAL [...] M79.89 OTHER SPECIFIED SOFT TISSUE DISORDERS 05/10/2019 [place] DO, CESAR B Ot D12.2 BENIGN NEOPLASM OF ASCENDING COLON 05/10/2019 [facility] Ot D12.4 BENIGN NEOPLASM OF DESCENDING COLON 05/10/2019 [facility], C[facility] B Ot E78.5 HYPERLIPIDEMIA, UNSPECIFIED 05/10/2019 [facility], CESAR B Ot F41.9 ANXIETY DISORDER, UNSPECIFIED 05/10/2019 [facility], CESAR B Ot 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 05/10/2019 [facility], CESAR B Ot K20.9 ESOPHAGITIS, UNSPECIFIED 05/10/2019 [facility], CESAR B Ot K29.5 0 UNSPECIFIED CHRONIC GASTRITIS WITHOUT BL 05/10/2019 [place] , CESAR B Ot K44.9 DIAPHRAGMATIC HERNIA WITHOUT OBSTRUCTION 05/10/2019 [facility], CESAR B Ot K63.5 POLYP OF COLON 05/10/2019 [facility], CESAR B Ot K64.8 OTHER HEMORRHOIDS 05/10/2019 [facility], CESAR B Ot Z12.1 1 ENCOUNTER FOR SCREENING FOR MALIGNANT NE 05/10/2019 [facility], CESAR B Ot Z79.8 99 OTHER PENITENTIARY (CURRENT) DRUG THERAPY 05/10/2019 [facility], CESAR B Ot Z82.4 9 FAMILY HX OF ISCHEM HEART DIS AND OTH DI 05/10/2019 [facility] GLASS, CESAR B Ot Z83.3 FAMILY HISTORY OF DIABETES MELLITUS 05/10/2019 [facility], CESAR B Ot Z83.6 FAMILY HISTORY OF OTHER DISEASES OF THE 05/10/2019 [facility], CESAR B Ot Z90.4 9 ACQUIRED ABSENCE OF OTHER SPECIFIED PART 05/11/2019 [place], CESAR B Ot Z01.8 18 ENCOUNTER FOR OTHER PREPROCEDURAL EXAMIN 05/24/2019 [facility] DO, CESAR B Ot D12.2 BENIGN NEOPLASM OF ASCENDING COLON 05/24/2019 [place] DO, CESAR B Ot D12.4 BENIGN NEOPLASM OF DESCENDING COLON 05/24/2019 [facility], CESAR B Ot E78.5 HYPERLIPIDEMIA, UNSPECIFIED 05/24/2019 [...] GLASS CESAR B Ot Z79.8 99 OTHER HEEL BUFFER (CURRENT) DRUG THERAPY 05/24/2019 [place] CESAR B Ot Z82.4 9 FAMILY HX [...] On TRIG [place] INJ/1-2 MUS 08/27/2012 44647 US P TANIA COMPL (REFLEX CPT- 19646) 07/19/2013 [id number] ROUT INE VENIPUNCTURE 01/05/2014 86521 LIPI D PANEL 01/05/2014 Results Test Result [...] - 10/03/16 14:21 Lipase 15 U/L 8-78 [id number] - 12/24/16 08:43 Serum or plasma urea [...] metanephrine measurement ( mass/volume) - 12/29/16 08:06 [id number] 353 ug/L NRG Metanephrine and normetanephrine [interp [...] HDL Cholesterol 39 mg/dL >39 VLDL Cholesterol Dionicio 23 mg/dL 5-40 LDL Cholesterol Calc 201 [...] NRG STATEMENT OF ADEQUACY: NRG INTERPRETATION/RESULT: NRG TRANSPORT TANK TECHNICIAN: NRG HPV mRNA E6/E7, SUREPATH VIAL Not [...] 7-25 CREATININE 1.01 mg/dL 0.50-1.05 eGFR NON-AFR. [place]IZ[place] 63 mL/min/1.73m2 > OR = 60 eGFR [...] 140-400 MPV 10.0 fL 7.5-12.5 ABSOLUTE NEUTROPHILS 02690 cells/uL 1500 -7800 ABSOLUTE LYMPHOCYTES 1218 cells/uL 850-3 900 ABSOLUTE MONOCYTES 726 cells/uL 200-950 ABSOLUTE EOSINOPHILS 37 cells/uL 15-500 ABSOLUTE BASOPHILS 62 cells/uL 0-200 NEUTROPHILS 83.4 % NRG LYMPHOCYTES 9.9 % NRG MONOCYTES 5.9 % NRG EOSINOPHILS 0.3 % NRG BASOPHILS 0.5 % NRG Encounters ACCT No. Visit Date/Time Discharge Status Pt. Type Provider Facility Loc./Unit Complaint [id number] 02/20/2017 15:07:00 Document Registration [id number] 01/05/2014 08:06:00 01/05/2014 23:59: 59 [facility] Outpatient SONNY MORENO DO [id number] 07/19/2013 15:16:00 07/19/2013 23:59: 59 [facility] Outpatient SONNY MORENO DO [id number] 08/27/2012 10:20:00 08/27/2012 23:59: 59 [facility] Outpatient SONNY MORENO DO [id number] 04/20/2012 10:19:00 04/20/2012 23:59: 59 [place] [id number] 07/01/2019 16:30:00 07/01/2019 23:59:5 9 [facility] Outpatient LAMONT RAMIREZ MD [facility] [id number] 06/02/2019 09:20:00 Document Registration [id number] 05/05/2019 09:00:00 Document Registration [id number] 04/22/2019 09:00:00 Document Registration [id number] 12/23/2018 08:00:00 Document Registration [id number] 01/08/2018 08:20:00 Document Registration [id number] 02/14/2017 08:20:00 Document Registration [id number] 06/14/2019 10:25:00 23:59:59 CLS Outpatient LAMONT RAMIREZ MD [facility] RAD LUMBAGO W/ SCIATICA [id number] 06/02/2019 10:29:00 23:59:59 CLS Outpatient LAMONT RAMIREZ MD [facility] RAD SCREENING [id number] 05/10/2019 10:27:00 13:15:00 DIS Outpatient CESAR RYAN DO [facility] ENDO SCREENING/REFLUX/HEARTB URN [id number] 05/06/2019 05:33:00 020 12:46:00 DIS Outpatient CESAR RYAN DO [facility] PREOP COLONOSCOPY/EGD [id number] 05/05/2019 10:55:00 23:59:59 CLS Outpatient LAMONT RAMIREZ MD [facility] CARD SWELLING,HTN [id number] 08/27/2018 12:30:00 23:59:59 CLS Preadmit LAMONT RAMIREZ MD [facility] RAD LUMBARGO W/ SCIATICA RT SIDE [id number] 08/04/2018 10:56:00 019 23:59:59 CLS Outpatient LAMONT RAMIREZ MD [facility] RAD ESSENTIAL HYPERTENSION [id number] 07/16/2017 07:53:00 018 23:59:59 CLS Outpatient LAMONT RAMIREZ MD [facility] RAD R10.31 RT GROIN PAIN [id number] 03/26/2017 06:24:00 017 12:20:00 DIS Outpatient RENEE YOO MD [facility] GALLSTONES [id number] 03/19/2017 05:37:00 017 12:42:00 DIS Outpatient RENEE YOO MD [facility] PREOP GALLSTONES [id number] 01/22/2017 13:35:00 017 23:59:59 CLS Preadmit RENEE YOO MD [facility] GALLSTONES [id number] 2017 05:39:00 017 23:59:59 CLS Outpatient RENEE YOO MD [facility] PREOP ROBOTIC CHOLECYSTECTOM Y, POSS.GRAMS, POSS. OPEN [id number] 12/29/2016 08:06:00 017 11:00:00 DIS Outpatient RENEE YOO MD [facility] LAB RIGHT ADRENAL NODULE [id number] 12/24/2016 08:17:00 017 23:59:59 CLS Outpatient LAMONT RAMIREZ MD [facility] RAD RT ADRENAL MASS E27.9 [id number] 10/03/2016 13:37:00 017 16:59:00 DIS Emergency GHAZAL GAUTHIER WAITER/WAITRESS CAPTAIN [facility] ER ABD PAIN [id number] 09/14/2015 05:38:00 016 23:59:59 CLS Outpatient KATHLEEN IRVING DO [facility] PREOP REFLEX/SCREENING [id number] 12/01/2014 06:26:00 015 10:30:00 DIS Outpatient TIFFANIE PÉREZ DO [facility] CYSTOCELE/RECTOCELE [id number] 11/23/2014 07:54:00 015 23:59:59 CLS Outpatient TIFFANIE PÉREZ DO [facility] PREOP CYSTOCELE/RECTOCELE [id number] 09/01/2013 15:21:00 014 23:59:59 CLS Outpatient SERINA NEGRON [facility] RAD ABN PAIN [id number] 12/12/2005 08:54:00 Document Registration
[2019-08-08] MEDS ORDERED: KCL 20 MEQ TAB (K-DUR) PO ONE ×2 (19:00→21:45)
[2019-08-08] MEDS ORDERED: FUROSEMIDE 40 MG/4 ML INJ (LASIX) IV ONE ×2 (19:00→21:45)
[2019-08-08] MEDS ORDERED: ENOXAPARIN 60 MG/0.6 ML (LOVENOX) SYR SC ONE (21:45)
[2019-08-08] MEDS ORDERED: RT-ALBUTEROL HFA (PROAIR HFA) 8.5 GM IH PRN (22:00)
[2019-08-09] VITALS (7 sets, daily range): BP systolic 117–151; BP diastolic 57–102
--- NOTE | 2019-08-09 02:20 | NUR ---
Timeline note below: 08/07 @ 2029 This RN accompanied patient to ICU room #3, patient in airborne precaution for COVID-19 rule out. Patient introduced to surroundings, call light within reach. This RN educated patient on need for vitals and telemetry monitoring. Patient was placed on 1L NC d/t desatting while she sleeps per ED report. Patient states "I don't need oxygen I am not short of breath", but did agree to wear NC. Patient stated "If we don't have answers about my swelling by tomorrow then I am going to [place]". 08/07 @ 2229 This RN in room to assess patient, her Sa02 was in 60's, patient was resting comfortably. This RN increased patient's NC to 3L. Patient said "I wish you'd leave me alone", "You keep waking me up and I want to get the fuck out of here", "You keep waking me up and now I'm getting agitated and I need a cigarette right now". This RN educated patient on the need for assessment as her oxygen saturation dropped into 60's while she slept. This RN offered to get patient a nicotine patch to help with her cigarette craving, patient stated "No, I am about to walk out to my car to get one right now", this RN educated patient on her rights to leave AMA and offered to get patient the form. Patient stated, "do what you need to do and leave me alone", this RN asked to put NC back into patient's nostrils, she stated "I'm not sure I even want to wear that son of a bitch", this RN educated patient on need for oxygen and patient consented to wearing NC at 3L. 08/07 @ 0 patient desatting into the 70-80's while sleeping. This RN to room to assess patient, asked patient to wear Oxy Mask. Patient refused at this time. Said "I came here for swelling, why aren't you fixing that. I don't need new problems". This RN continued to educate patient on her vitals and explained that it is unsafe for her Sa02 to be at such a low level while she sleeps. Pt consented to wear NC at 4L at this time. This RN explained to patient need for possible BiPAP, patient stated "I know what that is and I will not wear it. I don't care what the doctor says". 08/08 13 This RN notified Tele-ICU that patient is desatting while sleeping with Sa02 dropping as low as 60. Dr. Bermeo requested for patient to wear BiPAP. This RN explained that patient refused but would try again. Dr. Bermeo then ordered Venturi Mask if patient would consent. 08/08 29 This RN at patient bedside asking patient to wear BiPAP patient refused again. This RN then asked patient to wear Venturi Mask after educating patient on importance of her oxygen saturation maintenance. Patient refused at this time. Stated "I just want you to leave me alone". Pt then said "I will sit up at bedside the rest of the night", this RN explained to patient she did not have to do that, that the Venturi mask would help. Patient just sat at beside at this time. This RN asked patient if there's anything I could to to make patient more comfortable, patient shook head no. 08/08 129 This RN updated Tele-ICU.
--- NOTE | 2019-08-09 03:30 | NUR ---
This RN was at bedside to draw patient's labs, patient wanted to know why she needed more labs, why we had to "poke her all over", this RN educated patient that these are labs that the doctor ordered. Patient said "I'm real fucking frustrated. I am here for swelling yet you all are focusing on my oxygen". This RN explained to patient that she is being treated as a whole, we have her on Sa02 monitoring because the doctor ordered that. The patient stated "I have been seeing the doctor for weeks now for this swelling and have no answers. Don't make me go to another hospital to find answers. I will go to [place] if you all can't tell me why I am still swelling". This RN listened as patient talked and then educated patient that in order to find answers we do need to run labs, assured her that we are doing everything possible to provide her with exceptional care. This RN asked if there was anything I could do to help her be more comfortable and she said "no". This RN will continue to monitor.
[2019-08-09 03:55] LABS: BASOPHILS % (AUTO) 0 % (0-10); EOSINOPHILS # (AUTO) 0.1 10^3/uL (0.0-0.3); EOSINOPHILS % (AUTO) 1 % (0-10); HEMATOCRIT 51 % (35-52); HEMOGLOBIN 15.2 G/DL (11.5-16.0); LYMPHOCYTES # (AUTO) 1.7 X 10^3 (1.0-4.0); LYMPHOCYTES % (AUTO) 18 % (12-44); MEAN CORPUSCULAR HEMOGLOBIN 25 PG (25-34); MEAN CORPUSCULAR HGB CONC 30 G/DL (32-36); MEAN CORPUSCULAR VOLUME 84 FL (80-99); MEAN PLATELET VOLUME 9.7 FL (7.4-10.4); MONOCYTES # (AUTO) 0.9 X 10^3 (0.0-1.0); MONOCYTES % (AUTO) 10 % (0-12); NEUTROPHILS # (AUTO) 6.5 X 10^3 (1.8-7.8); NEUTROPHILS % (AUTO) 70 % (42-75); PLATELET COUNT 284 10^3/uL (130-400); RED CELL DISTRIBUTION WIDTH 18.7 % (10.0-14.5); WHITE BLOOD COUNT 9.2 10^3/uL (4.3-11.0)
[2019-08-09 04:14] LABS: CALCIUM 9.7 MG/DL (8.5-10.1); CREATININE SERUM 1.16 MG/DL (0.60-1.30); PHOSPHORUS 7.8 MG/DL (2.3-4.7); POTASSIUM 3.7 MMOL/L (3.6-5.0)
--- NOTE | 2019-08-09 05:25 | Pulmonary Consultation ---
History of Present Illness History of Present Illness Date Seen by Provider: Aug 09, 2019 Time Seen by Provider: 05:22 Date of Admission Allergies and Home Medications Allergies Coded Allergies: No Known Drug Allergies (Unverified , 05/06/19) Home Medications Atorvastatin Calcium 20 Mg Tablet, 20 MG PO DAILY, (Reported) Furosemide 20 Mg Tablet, 20 MG PO DAILY, (Reported) Hydrochlorothiazide 25 Mg Tablet, 25 MG PO DAILY, (Reported) Past Lrktehi-Ozzajl-Xnowdf Hx Past Med/Social Hx: Reviewed Nursing Past Med/Soc Hx Patient Social History Alcohol Use: Denies Use Recreational Drug Use: No Smoking Status: Current Everyday Smoker Type Used: Cigarettes 2nd Hand Smoke Exposure: Yes Recent Foreign Travel: No Contact w/Someone Who Travel: No Recent Infectious Disease Expo: No Recent Hopitalizations: No Physical Abuse: No Sexual Abuse: No Mistreated: No Fear: No Immunizations Up To Date Tetanus Booster (TDap): Unknown PED Vaccines UTD: No Seasonal Allergies Seasonal Allergies: Yes Past Medical History Surgeries: Yes Bladder Surgery, Section, Gallbladder Respiratory: Yes (BEGINING STAGES) COPD Cardiac: Yes High Cholesterol, Hypertension Neurological: No Reproductive Disorders: No Female Reproductive Disorders: Denies Sexually Transmitted Disease: No HIV/AIDS: No Genitourinary: No Gastrointestinal: Yes (fatty liver disease) Gastroesophageal Reflux, Hiatal Hernia Musculoskeletal: Yes Chronic Back Pain Endocrine: No HEENT: Yes (GLASSES, DENTURES) Loss of Vision: Bilateral Hearing Impairment: Denies Cancer: No Psychosocial: Yes Anxiety, Depression Integumentary: No Blood Disorders: No Adverse Reaction/Blood Tranf: No (N/A) Family Medical History Reviewed Nursing Family Hx COPD 19 MOTHER Diabetes mellitus 19 FATHER Myocardial infarction 19 FATHER TESTICULAR CANCER G8 BROTHER Review of Systems Time Seen by Provider: 05:25 Sepsis Event Evaluation Height, Weight, BMI Height: 5'7.00" Weight: 220lbs. 0.0oz. 99.871666ah; 41.59 BMI Method:Stated Exam Exam Vital Signs Date Time Temp Pulse Resp B/P (MAP) Pulse Ox O2 Delivery O2 Flow Rate FiO2 08/09/19 05:00 93 28 59 Nasal Cannula 3.00 08/09/19 04:00 81 24 97 Nasal Cannula 3.00 08/09/19 04:00 36.5 08/09/19 04:00 Nasal Cannula 3.00 08/09/19 03:00 94 26 66 Nasal Cannula 3.00 08/09/19 02:00 85 17 98 Nasal Cannula 3.00 08/09/19 01:00 90 26 151/102 (118) 84 Nasal Cannula 4.00 08/09/19 00:59 103 08/09/19 00:00 Nasal Cannula 3.00 08/09/19 00:00 37.0 08/09/19 00:00 84 20 147/80 (102) 94 Nasal Cannula 4.00 08/08/19 23:13 Nasal Cannula 4.00 08/08/19 23:00 87 156/86 (109) 92 Nasal Cannula 3.00 08/08/19 22:30 Nasal Cannula 3.00 08/08/19 22:00 87 20 141/100 (114) Nasal Cannula 1.00 08/08/19 22:00 155/83 (107) 90 Nasal Cannula 1.00 08/08/19 21:46 80 98 08/08/19 21:11 80 08/08/19 21:00 81 20 136/83 (100) 95 Nasal Cannula 1.00 08/08/19 21:00 92 Nasal Cannula 3.00 08/08/19 20:35 94 Nasal Cannula 1.00 08/08/19 20:35 Nasal Cannula 1.00 08/08/19 20:30 36.6 80 19 120/108 (112) 94 Nasal Cannula 1.00 08/08/19 18:44 80 18 112/75 98 08/08/19 18:00 36.7 76 10 124/75 (91) 99 Nasal Cannula 2.00 08/08/19 17:40 36.7 81 18 128/79 (95) 99 Nasal Cannula 2.00 08/08/19 17:15 36.7 75 11 120/76 (91) 94 Nasal Cannula 08/08/19 16:45 36.7 76 22 91/60 (70) 89 Room Air 08/08/19 16:04 36.7 84 18 115/97 (103) 91 Room Air I & O 08/09/19 07:00 Intake Total 100 ml Balance 100 ml Height & Weight Height: 5'7.00" Weight: 220lbs. 0.0oz. 99.047090yy; 41.59 BMI Method:Stated General Appearance: No Apparent Distress, WD/WN, Obese HEENT: PERRL/EOMI, Normal ENT Inspection, Pharynx Normal Neck: Normal Inspection Respiratory: No Accessory Muscle Use, No Respiratory Distress, Wheezing Cardiovascular: Regular Rate, Rhythm, No Edema, No Murmur, Normal Peripheral Pulses Capillary Refill: Less Than 3 Seconds Extremity: Pedal Edema, Swelling Neurologic/Psychiatric: Alert, Oriented x3, No Motor/Sensory Deficits, Normal Mood/Affect, plugger II-XII Norm as Tested Skin: Warm/Dry, Erythema Results Lab Laboratory Tests 08/08/19 16:22 08/09/19 03:30 Assessment/Plan Assessment/Plan Influenza A + -Continue Tamiflu -COVID is pending NSTEMI -Cardiology following -Echo pending Probable BHASKAR -Pt refused BiPAP last night STU CABAN DO Aug 09, 2019 05:25
[2019-08-09] MEDS ORDERED: ENOXAPARIN 40 MG/0.4 ML (LOVENOX) SYR SC SCH (05:30)
[2019-08-09] MEDS: RT-ALBUTEROL HFA (PROAIR HFA) 8.5 GM IH SCH ×2 (07:54→19:16)
[2019-08-09] MEDS: ADVAIR HFA 115/21 MCG INHALER 8 GM IH SCH ×2 (07:54→19:16)
[2019-08-09 08:13] LABS: BILIRUBIN,URINE NEGATIVE (NEGATIVE); CLARITY,URINE CLEAR; COLOR,URINE YELLOW; GLUCOSE, URINE (UA) NEGATIVE (NEGATIVE); KETONES,URINE NEGATIVE (NEGATIVE); LEUKOCYTE ESTERASE ,URINE NEGATIVE (NEGATIVE); NITRITE,URINE NEGATIVE (NEGATIVE); PROTEIN,URINE NEGATIVE (NEGATIVE)
[2019-08-09 08:20] LABS: BACTERIA,URINE TRACE /HPF; WBC,URINE 0-2 /HPF
[2019-08-09] MEDS ORDERED: ASPIRIN 81 MG CHEW (CHILDREN'S ASA) PO SCH (09:00)
[2019-08-09] MEDS: FUROSEMIDE 40 MG/4 ML INJ (LASIX) IVP SCH (09:03)
[2019-08-09] MEDS: PANTOPRAZOLE 40 MG (PROTONIX) VIAL IV SCH (09:03)
[2019-08-09] MEDS: KCL 10 MEQ TAB (MICRO K) PO SCH (09:04)
[2019-08-09] MEDS: OSELTAMIVIR 75 MG (TAMIFLU) CAPSULE PO SCH ×2 (09:04→20:11)
[2019-08-09] MEDS: ASPIRIN 81 MG CHEW (CHILDREN'S ASA) PO SCH (09:09)
--- NOTE | 2019-08-09 10:31 | History & Physical-Hospitalist ---
History of Present Illness HPI/Chief Complaint CC: Anasarca with hypoxia HPI: This is a 54[facility]WF clinic patient of [facility] who presents to [facility] ER with increased edema for the past several weeks. Lasix had been initiated without improvement when she saw her PCP and became more and more dyspneic so she reported to the ER and found to have hypoxia so she was swabbed for COVID-19 placed in isolation and PPE was worn during the entire interview and exam with the patient by this examiner. Patient has not been compliant with testing we ordered including ABG. Very difficult to manage this patient when she states the "she could just leave AMA and go to [place] where they will fix her." I have consulted Pulmo and Cards and they are both appreciated. Source: patient, RN/MD, old records Exam Limitations: no limitations Date Seen 08/09/19 Time Seen by a Provider: 11:45 Attending Physician Janice Thompson DO PCP Tasia Zheng MD Referring Physician Date of Admission Aug 08, 2019 at 18:10 Home Medications & Allergies Home Medications Reviewed patient Home Medication Reconciliation performed by pharmacy medication reconciliations gis mapping technician and/or nursing. Patients Allergies have been reviewed. Allergies Allergies Coded Allergies No Known Drug Allergies (Unverified05/06/19) Past Maxduiz-Iqkndq-Emmnyz Hx Past Med/Social Hx: Reviewed Nursing Past Med/Soc Hx, Reviewed and Corrections made Patient Social History Marrital Status: single Employed/Student: unemployed Alcohol Use: Denies Use Recreational Drug Use: No Smoking Status: Current Everyday Smoker Type Used: Cigarettes 2nd Hand Smoke Exposure: Yes Recent Foreign Travel: No Contact w/other who traveled: No Recent Hopitalizations: No Recent Infectious Disease Expo: No Immunizations Up To Date Tetanus Booster (TDap): Unknown Pediatric: No Seasonal Allergies Seasonal Allergies: Yes Past Medical History Surgeries: Bladder Surgery, Section, Gallbladder Cardiac: High Cholesterol, Hypertension Reproductive: No Sexually Transmitted Disease: No HIV/AIDS: No Female Reproductive Disorders: Denies Gastrointestinal: Gastroesophageal Reflux, Hiatal Hernia Musculoskeletal: Chronic Back Pain Loss of Vision: Bilateral Hearing Impairment: Denies Psychosocial: Anxiety, Depression History of Blood Disorders: No Adverse Reaction to Blood Hayes: No (N/A) Family History Reviewed Nursing Family Hx COPD 19 MOTHER Diabetes mellitus 19 FATHER Myocardial infarction 19 FATHER TESTICULAR CANCER G8 BROTHER Review of Systems Constitutional: see HPI Respiratory: cough, dyspnea on exertion, wheezing Cardiovascular: edema Physical Exam Physical Exam Vital Signs Vital Signs - First Documented 08/08/19 08/08/19 08/09/19 16:04 17:40 14:13 Temp 36.7 Pulse 84 Resp 18 B/P (MAP) 115/97 (103) Pulse Ox 91 O2 Delivery Room Air O2 Flow Rate 2.00 FiO2 32 Capillary Refill : Less Than 3 Seconds Height, Weight, BMI Height: 5'7.00" Weight: 220lbs. 0.0oz. 99.828116pa; 41.59 BMI Method:Stated General Appearance: No Apparent Distress, Chronically ill, Obese Eyes: Right Eye Normal Inspection, Right Eye PERRL HEENT: PERRL/EOMI, Normal ENT Inspection, Pharynx Normal, Moist Mucous Membranes Neck: Full Range of Motion, Normal Inspection, Non Tender Respiratory: Chest Non Tender, Lungs Clear, No Accessory Muscle Use, No Respiratory Distress, Decreased Breath Sounds Cardiovascular: Regular Rate, Rhythm, No Gallop, No JVD, No Murmur, Normal Peripheral Pulses Gastrointestinal: Normal Bowel Sounds, No Organomegaly, No Pulsatile Mass, Non Tender, Soft Back: Normal Inspection, No CVA Tenderness, No Vertebral Tenderness Extremity: Normal Capillary Refill, Normal Inspection, Normal Range of Motion, Non Tender, No Calf Tenderness, Pedal Edema Neurologic/Psychiatric: Alert, Oriented x3, No Motor/Sensory Deficits, Normal Mood/Affect Skin: Normal Color, Warm/Dry Lymphatic: No Adenopathy Results Results/Procedures Labs Laboratory Tests 08/08/19 16:22 08/09/19 03:30 Patient resulted labs reviewed. Assessment/Plan Admission Diagnosis Assessment: Acute influenza A COVID-19 swab negative NSTEMI Presumed BHASKAR Edema Smoker Plan: Tamiflu ECHO Cardiology and Pulmonary consultations are appreciated Admission Status: Inpatient Order (span 2 midnights) Reason for Inpatient Admission: flu a with hypoxia and nstemi Diagnosis/Problems Diagnosis/Problems (1) Influenza A (2) COPD exacerbation Status: Acute (3) Elevated troponin Status: Acute (4) Hypoxia Status: Acute (5) Edema Status: Acute Qualifiers: Edema type: unspecified Qualified Codes: R60.9 - Edema, unspecified Clinical Quality Measures DVT/VTE Risk/Contraindication: Risk Factor Score Per Nursin RFS Level Per Nursing on Admit: 4+=Very High JANICE THOMPSON DO Aug 09, 2019 10:31
[2019-08-09] MEDS ORDERED: MELO7.5T46 PO (14:54)
[2019-08-09] MEDS ORDERED: DIPH25CA79 PO (14:54)
[2019-08-09] MEDS ORDERED: RT-ALBUINH IH (14:54)
[2019-08-09] MEDS ORDERED: ATOR40TA70 PO (14:54)
--- NOTE | 2019-08-09 14:54 | NUR ---
SPOKE WITH THE PT ( I CALLED HER CELL PHONE) AND GOT A MED LIST FROM [facility] TO COMPLETE THE MED REC 04-26-2019 ATORVASTATIN 40MG #/DS 06-04-2019 HCTZ 25MG #90/90DS 07-02-2019 PROAIR HFA #1 07-02-2019 MELOXICAM 7.5MG #30/30DS 07-22-2019 FUROSEMIDE 20MG # FUROSEMIDE 20MG; THE DIRECTIONS SHOW 1 TAB DAILY- HOWEVER THE PT SAYS WHEN ALL THIS SWELLING STARTED THE PATIENT WAS TOLD FROM THE DR TO TAKE 2 TABS DAILY. OTC MEDS: BENADRYL
--- NOTE | 2019-08-09 17:47 | Consultation-Cardiology ---
HPI-Cardiology Cardiology Consultation: Date of Consultation 08/09/19 Date of Admission Attending Physician Janice Randall DO Admitting Physician Tasia Zheng MD Consulting Physician Scott RANGEL MD HPI: Time Seen by a Provider: 16:45 Chief Complaint: Shortness of breath. This is a 54-year-old lady with history of hyperlipidemia and hypertension who presents with worsening shortness of breath as well as lower extremity swelling. According to the patient her symptoms started a few months ago but are getting worse in the last few weeks. She follows with Dr. Zheng. Dr. Zheng gave her Lasix but the patient did not feel any improvement. According to the patient she has gained significant amount of weight since all of this started. She is an active smoker. She denies any chest pain. She does say that she has a history of fatty liver disease. Negative pertinent family history. COVID-19 was negative however influenza was positive. Review of Systems-Cardiology Review of Systems Constitutional: As described under HPI; No As described under HPI, No no symptoms reported, No chills, No fever, No lightheadedness Eyes: No As described under HPI, No no symptoms reported, No blindness, No blurred vision, No contact lenses, No drainage, No decreased acuity, No foreign body sensation, No pain, No vision change Ears/Nose/Throat: No As described under HPI, No no symptoms reported, No chronic hearing loss, No ear discharge, No ear pain, No nasal drainage, No ulcerations Respiratory: No no symptoms reported; As described under HPI; No As described under HPI, No cough, No orthopnea; shortness of breath; No SOB with excertion Cardiovascular: No no symptoms reported; As described under HPI; No As described under HPI, No chest pain; edema; No irregular heart rate, No lightheadedness, No palpitations Gastrointestinal: No no symptoms reported, No As described under HPI, No abdomen distended, No abdominal pain, No blood streaked bowels, No constipation, No diarrhea, No nausea, No vomiting, No stool coloration changes Genitourinary: No As described under HPI, No burning, No dysuria, No discharge, No frequency, No flank pain, No hematuria, No urgency : No Skin: No rash, No skin related problems, No ulcerations Psychiatric/Neurological: No anxiety, No depression, No seizure, No focal weakness, No syncope Hematologic: No bleeding abnormalities TLR-Pnyudp-Xlnwae Hx Patient Social History Alcohol Use: Denies Use Recreational Drug Use: No Smoking Status: Current Everyday Smoker Type Used: Cigarettes 2nd Hand Smoke Exposure: Yes Recent Foreign Travel: No Recent Infectious Disease Expo: No Immunizations Up To Date Tetanus Booster (TDap): Unknown Past Medical History PMH As described under Assessment. Family Medical History Family History: COPD 19 MOTHER Diabetes mellitus 19 FATHER Myocardial infarction 19 FATHER TESTICULAR CANCER G8 BROTHER Allergies and Home Medications Allergies Coded Allergies: No Known Drug Allergies (Unverified , 05/06/19) Home Medications Albuterol Sulfate 1 Puff Puff, 2 PUFF IH Q4H PRN for SHORTNESS OF BREATH, (Repor rohan) Atorvastatin Calcium 40 Mg Tablet, 40 MG PO DAILY, (Reported) Diphenhydramine HCl 25 Mg Capsule, 50 MG PO DAILY PRN for ALLERGY SYMPTOMS, (Reported) Furosemide 20 Mg Tablet, 40 MG PO DAILY, (Reported) TAKES 2 (20MG) TABS DAILY Hydrochlorothiazide 25 Mg Tablet, 25 MG PO DAILY, (Reported) Meloxicam 7.5 Mg Tablet, 7.5 MG PO DAILY PRN for PAIN-BREAKTHROUGH, (Reported) Patient Home Medication List Home Medication List Reviewed: Yes Physical Exam-Cardiology Physical Exam Vital Signs/I&O 08/10/19 08/10/19 08/10/19 08/10/19 01:00 01:35 04:00 04:00 Temp 37.2 Pulse 93 68 Resp 22 B/P (MAP) 129/72 (91) Pulse Ox 81 93 O2 Delivery High Flow N/C High Flow N/C Nasal Cannula O2 Flow Rate 6.00 5.00 4.00 08/10/19 08/10/19 08/10/19 08/10/19 07:00 07:06 07:08 08:00 Temp 37.2 Pulse 68 88 Resp 22 B/P (MAP) 119/62 (81) Pulse Ox 91 91 96 O2 Delivery High Flow N/C High Flow N/C Nasal Cannula O2 Flow Rate 7.00 7.00 4.00 08/10/19 08/10/19 08/10/19 08:00 09:00 12:00 Pulse Ox 91 96 96 O2 Delivery High Flow N/C High Flow N/C High Flow N/C O2 Flow Rate 7.00 7.00 7.00 08/10/19 00:00 Intake Total 520 ml Output Total 300 ml Balance 220 ml Capillary Refill : Less Than 3 Seconds Constitutional: appears stated age, AAO x 3; No apparent distress; well- developed, well-nourished HEENT: PERRL; No discharge; hearing is well preserved, oral hygience is good; No ulceration, No xanthelasmas are seen Neck: No carotid bruit; carotid pulses are 2 + bilaterally Respiratory: chest is bilaterally symmetric, lungs clear to auscultation, wheezing Cardiovascular: regular rate-rhythm, S1 and S2 Gastrointestinal: soft, audible bowel sounds; No spleenomegaly Rectal: deferred Extremities: normal range of motion, non-tender, normal inspection, pedal edema; No clubbing, No cyanosis, No significant edema Neurologic/Psychiatric: no motor/sensory deficits, alert, normal mood/affect, oriented x 3, power is 5/5 both on sides Skin: normal color; No rash, No ulcerations Data Review Labs Laboratory Tests 08/10/19 04:15: White Blood Count 10.4, Red Blood Count 5.86H, Hemoglobin 14.8, Hematocrit 51, Mean Corpuscular Volume 88, Mean Corpuscular Hemoglobin 25, Mean Corpuscular Hemoglobin Concent 29L, Red Cell Distribution Width 18.6H, Platelet Count 269, Mean Platelet Volume 9.8, Neutrophils (%) (Auto) 78H, Lymphocytes (%) (Auto) 12, Monocytes (%) (Auto) 9, Eosinophils (%) (Auto) 1, Basophils (%) (Auto) 0, Neutrophils # (Auto) 8.1H, Lymphocytes # (Auto) 1.2, Monocytes # (Auto) 1.0, Eosinophils # (Auto) 0.1, Basophils # (Auto) 0.0, Sodium Level 141, Potassium Level 4.4, Chloride Level 91L, Carbon Dioxide Level 36H, Anion Gap 14, Blood Urea Nitrogen 20H, Creatinine 1.16, Estimat Glomerular Filtration Rate 49, BUN/Creatinine Ratio 17, Glucose Level 138H, Calcium Level 9.3, Phosphorus Level 5.1H, Magnesium Level 1.9 Microbiology 08/08/19 Influenza Types A,B Antigen (THANG) - Final, Complete ECG Impression ECG Initial ECG Rhythm: Normal Sinus Initial ECG Impression: Nonspecific Changes A/P-Cardiology Assessment/Admission Diagnosis Acute influenza, Sepsis, Significant lower extremity swelling, Likely type II myocardial infarction, Active smoking, Fatty liver Plan Acute influenza, sepsis, defer to the primary team. Significant lower extremity swelling, unclear etiology. Already on Lasix with no significant improvement. Echocardiogram done 08/08/ did not show any significant LV or RV dysfunction. Unlikely due to a cardiac etiology. Will recommend venous ultrasound to rule out DVT as an inpatient and then likely a venous insufficiency study as an outpatient. Likely type II myocardial infarction, due to acute influenza. However ACS cannot be ruled out due to risk factors including active smoking. She will require nuclear stress testing once she is stable enough, just before discharge. Active smoking, smoking cessation was recommended. Fatty liver Thank you for your consultation. Please call me if you have any questions. Rayna Rangel MD, FACP, FACC, FSCAI, FHRS, CCDS Interventional Cardiology Cardiac Electrophysiology Vascular Medicine and Endovascular Interventions Clinical Quality Measures DVT/VTE Risk/Contraindication: Risk Factor Score Per Nursin RFS Level Per Nursing on Admit: 4+=Very High Scott RANGEL MD Aug 09, 2019 17:47
--- NOTE | 2019-08-09 18:00 | NUR ---
RECEIVED REPORT FROM ZACK IN ICU. PT IS SITTING IN RECLINER EATING SUPPER. THIS RN IS TAKING OVER CARE AT THIS TIME. PT DENIES PAIN OR DISCOMFORT AT THIS TIME.
[2019-08-09] MEDS: ENOXAPARIN 40 MG/0.4 ML (LOVENOX) SYR SC SCH (19:51)
[2019-08-10 00:16] VITALS: BP 146/85
[2019-08-10 04:00] VITALS: BP 129/72
[2019-08-10 05:02] LABS: BASOPHILS % (AUTO) 0 % (0-10); EOSINOPHILS # (AUTO) 0.1 10^3/uL (0.0-0.3); EOSINOPHILS % (AUTO) 1 % (0-10); HEMATOCRIT 51 % (35-52); HEMOGLOBIN 14.8 G/DL (11.5-16.0); LYMPHOCYTES # (AUTO) 1.2 X 10^3 (1.0-4.0); LYMPHOCYTES % (AUTO) 12 % (12-44); MEAN CORPUSCULAR HEMOGLOBIN 25 PG (25-34); MEAN CORPUSCULAR HGB CONC 29 G/DL (32-36); MEAN CORPUSCULAR VOLUME 88 FL (80-99); MEAN PLATELET VOLUME 9.8 FL (7.4-10.4); MONOCYTES % (AUTO) 9 % (0-12); NEUTROPHILS # (AUTO) 8.1 X 10^3 (1.8-7.8); NEUTROPHILS % (AUTO) 78 % (42-75); PLATELET COUNT 269 10^3/uL (130-400); RED CELL DISTRIBUTION WIDTH 18.6 % (10.0-14.5); WHITE BLOOD COUNT 10.4 10^3/uL (4.3-11.0)
[2019-08-10 05:16] LABS: POTASSIUM 4.4 MMOL/L (3.6-5.0)
[2019-08-10 05:17] LABS: CALCIUM 9.3 MG/DL (8.5-10.1)
[2019-08-10 05:21] LABS: PHOSPHORUS 5.1 MG/DL (2.3-4.7)
[2019-08-10 05:22] LABS: CREATININE SERUM 1.16 MG/DL (0.60-1.30)
[2019-08-10 05:24] LABS: MAGNESIUM 1.9 MG/DL (1.6-2.4)
[2019-08-10] MEDS: ADVAIR HFA 115/21 MCG INHALER 8 GM IH SCH (07:05)
[2019-08-10] MEDS: RT-ALBUTEROL HFA (PROAIR HFA) 8.5 GM IH SCH (07:05)
[2019-08-10] MEDS: ENOXAPARIN 40 MG/0.4 ML (LOVENOX) SYR SC SCH (07:11)
--- NOTE | 2019-08-10 07:53 | NUR ---
2300-pt decided to lay down in bed-pt refusing to put on bipap, or oxy mask, pt continues to wear nc 4l spo2 sat 93% at this time. pt states she is not going to wear the bipap. 0000-spo2 93% 4l nc 0132- spo2 80-81% 4lnc pt was advised that she needed to be placed on bipap, pt continues to refuse-pt placed on high flow nc 6L-O2 sat 92% hr 90 respiration 22 per minute. 0145-02 93% on 6lnc high flow
[2019-08-10 08:00] VITALS: BP 119/62
[2019-08-10] MEDS: OSELTAMIVIR 75 MG (TAMIFLU) CAPSULE PO SCH (08:11)
[2019-08-10] MEDS: ASPIRIN 81 MG CHEW (CHILDREN'S ASA) PO SCH (08:11)
[2019-08-10] MEDS: FUROSEMIDE 40 MG/4 ML INJ (LASIX) IVP SCH (08:11)
[2019-08-10] MEDS: KCL 10 MEQ TAB (MICRO K) PO SCH (08:11)
[2019-08-10] MEDS: PANTOPRAZOLE 40 MG (PROTONIX) VIAL IV SCH (08:11)
[2019-08-10 12:00] VITALS: BP 118/68
--- NOTE | 2019-08-10 12:05 | Progress Note - Hospitalist ---
Subjective HPI/CC On Admission Date Seen by Provider: Aug 10, 2019 Time Seen by Provider: 10:45 CC: Anasarca with hypoxia HPI: This is a 54yoWF clinic patient of [facility] who presents to [facility] ER with increased edema for the past several weeks. Lasix had been initiated without improvement when she saw her PCP and became more and more dyspneic so she reported to the ER and found to have hypoxia so she was swabbed for COVID-19 placed in isolation and PPE was worn during the entire interview and exam with the patient by this examiner. Patient has not been compliant with testing we ordered including ABG. Very difficult to manage this patient when she states the "she could just leave AMA and go to [place] where they will fix her." I have consulted Pulmo and Cards and they are both appreciated. Objective Exam Vital Signs Vital Signs Date Time Temp Pulse Resp B/P (MAP) Pulse Ox O2 Delivery O2 Flow Rate FiO2 08/10/19 16:40 08/10/19 13:40 95 7.00 08/10/19 13:00 88 08/10/19 12:00 High Flow N/C 08/10/19 12:00 36.2 18 08/09/19 14:13 32 Capillary Refill : Less Than 3 Seconds Results/Procedures Lab Laboratory Tests 08/10/19 04:15 Patient resulted labs reviewed. Diagnosis/Problems Diagnosis/Problems (1) Influenza A (2) COPD exacerbation Status: Acute (3) Elevated troponin Status: Acute (4) Hypoxia Status: Acute (5) Edema Status: Acute Qualifiers: Edema type: unspecified Qualified Codes: R60.9 - Edema, unspecified Clinical Quality Measures DVT/VTE Risk/Contraindication: Risk Factor Score Per Nursin RFS Level Per Nursing on Admit: 4+=Very High DAVID THOMPSON DO Aug 10, 2019 12:05
--- NOTE | 2019-08-10 13:00 | Cardiology Progress Note ---
Cardiology SOAP Progress Note Subjective: Improved shortness of breath. Objective: I&O/Vital Signs 08/10/19 08/10/19 08/10/19 08/10/19 01:35 04:00 04:00 07:00 Temp 37.2 Pulse 68 68 Resp 22 B/P (MAP) 129/72 (91) Pulse Ox 81 93 O2 Delivery High Flow N/C High Flow N/C Nasal Cannula O2 Flow Rate 6.00 5.00 4.00 08/10/19 08/10/19 08/10/19 08/10/19 07:06 07:08 08:00 08:00 Temp 37.2 Pulse 88 Resp 22 B/P (MAP) 119/62 (81) Pulse Ox 91 91 96 91 O2 Delivery High Flow N/C High Flow N/C Nasal Cannula High Flow N/C O2 Flow Rate 7.00 7.00 4.00 7.00 08/10/19 08/10/19 09:00 12:00 Pulse Ox 96 96 O2 Delivery High Flow N/C High Flow N/C O2 Flow Rate 7.00 7.00 08/10/19 00:00 Intake Total 520 ml Output Total 300 ml Balance 220 ml Weight (Pounds): 220 Weight (Ounces): 0.0 Weight (Calculated Kilograms): 99.092005 Constitutional: appears stated age, AAO x 3; No apparent distress; well- developed, well-nourished Respiratory: chest is bilaterally symmetric, lungs clear to auscultation, wheezing Cardiovascular: regular rate-rhythm, S1 and S2 Gastrointestional: soft, audible bowel sounds; No spleenomegaly Extremities: normal range of motion, non-tender, normal inspection, pedal edema; No clubbing, No cyanosis, No significant edema Neurologic/Psychiatric: no motor/sensory deficits, alert, normal mood/affect, oriented x 3, power is 5/5 both on sides Skin: normal color; No rash, No ulcerations Results/Procedures: Labs Laboratory Tests 08/10/19 04:15: White Blood Count 10.4, Red Blood Count 5.86H, Hemoglobin 14.8, Hematocrit 51, Mean Corpuscular Volume 88, Mean Corpuscular Hemoglobin 25, Mean Corpuscular Hemoglobin Concent 29L, Red Cell Distribution Width 18.6H, Platelet Count 269, Mean Platelet Volume 9.8, Neutrophils (%) (Auto) 78H, Lymphocytes (%) (Auto) 12, Monocytes (%) (Auto) 9, Eosinophils (%) (Auto) 1, Basophils (%) (Auto) 0, Neutrophils # (Auto) 8.1H, Lymphocytes # (Auto) 1.2, Monocytes # (Auto) 1.0, Eosinophils # (Auto) 0.1, Basophils # (Auto) 0.0, Sodium Level 141, Potassium Level 4.4, Chloride Level 91L, Carbon Dioxide Level 36H, Anion Gap 14, Blood Urea Nitrogen 20H, Creatinine 1.16, Estimat Glomerular Filtration Rate 49, BUN/Creatinine Ratio 17, Glucose Level 138H, Calcium Level 9.3, Phosphorus Level 5.1H, Magnesium Level 1.9 Microbiology 08/08/19 Influenza Types A,B Antigen (THANG) - Final, Complete A/P: Assessment/Dx: Acute influenza, Sepsis, Significant lower extremity swelling, Likely type II myocardial infarction, Active smoking, Fatty liver Plan: Acute influenza, sepsis, defer to the primary team. Significant lower extremity swelling, unclear etiology. Already on Lasix with no significant improvement. Echocardiogram done 08/09/19 did not show any significant LV or RV dysfunction. Unlikely due to a cardiac etiology. Will recommend venous ultrasound to rule out DVT as an inpatient and then likely a venous insufficiency study as an outpatient. Likely type II myocardial infarction, due to acute influenza. However ACS cannot be ruled out due to risk factors including active smoking. She will require nuclear stress testing once she is stable enough, just before discharge. Active smoking, smoking cessation was recommended. Fatty liver Thank you for your consultation. Please call me if you have any questions. Rayna Rangel MD, FACP, FACC, FSCAI, FHRS, CCDS Interventional Cardiology Cardiac Electrophysiology Vascular Medicine and Endovascular Interventions Scott RANGEL MD Aug 10, 2019 13:00
--- NOTE | 2019-08-10 13:40 | NUR ---
SPO2 DROPPED TO 87% ON ROOM AIR @ REST. PLACED PT BACK ON O2 @ 2 LPM. SPO2 INCREASED TO 93%. WALKED PT FOR 3 MINUTES AND SPO2 STAYED ABOVE 90%. Addendum: 08/10/19 at 1352 by MONICA GALINDO RT Amended: Links added.
[2019-08-10] MEDS ORDERED: POTA10TA6 PO (14:06)
[2019-08-10] MEDS ORDERED: FLUT12AE4 IH (14:06)
[2019-08-10] MEDS ORDERED: OSLT75C PO (14:06)
[2019-08-10] MEDS ORDERED: ASPI-999 PO (14:06)
[2019-08-10] MEDS ORDERED: RELABEL FOR HOME USE MC SCH (14:15)
--- NOTE | 2019-08-10 14:35 | NUR ---
CM FINALIZED DISCHARGE PLAN: Patient is dismissing to home today with new continuous oxygen. She currently does not have insurance and has filed for pending roberto care here so she was set up with her new oxygen through our DME. New orders faxed et they will deliver her o2 to the hospital. She will need this prior to discharge. Denies any further needs or requests at this time.
--- NOTE | 2019-08-10 14:41 | Discharge Summary ---
Discharge Summary Hospital Course Was the Problem List Reviewed?: Yes Problems/Dx: (1) Influenza A (2) COPD exacerbation Status: Acute (3) Elevated troponin Status: Acute (4) Hypoxia Status: Acute (5) Edema Status: Acute Qualifiers: Qualified Codes: R60.9 - Edema, unspecified Hospital Course Date of Admission: Aug 08, 2019 at 18:10 Admission Diagnosis : Family Physician/Provider: Tasia hZeng MD Date of Discharge: 08/10/19 Discharge Diagnosis: Influenza A, Hypoxia, presumed BHASKAR/OHS, smoker, edema Hospital Course: Short course complicated by her non-compliance with testing and treatments. O2 maintained and she refused biPAP. Severe hypoxia noted with sleep and naps. SLeep study recommended but declines the test. Overall poor prognosis given the severity of her BHASKAR and hypoxia and smoking. O2 needed at DC and that was set up. Labs and Pending Lab Test: Laboratory Tests 08/10/19 04:15: White Blood Count 10.4, Red Blood Count 5.86H, Hemoglobin 14.8, Hematocrit 51, Mean Corpuscular Volume 88, Mean Corpuscular Hemoglobin 25, Mean Corpuscular Hemoglobin Concent 29L, Red Cell Distribution Width 18.6H, Platelet Count 269, Mean Platelet Volume 9.8, Neutrophils (%) (Auto) 78H, Lymphocytes (%) (Auto) 12, Monocytes (%) (Auto) 9, Eosinophils (%) (Auto) 1, Basophils (%) (Auto) 0, Neutrophils # (Auto) 8.1H, Lymphocytes # (Auto) 1.2, Monocytes # (Auto) 1.0, Eosinophils # (Auto) 0.1, Basophils # (Auto) 0.0, Sodium Level 141, Potassium Level 4.4, Chloride Level 91L, Carbon Dioxide Level 36H, Anion Gap 14, Blood Urea Nitrogen 20H, Creatinine 1.16, Estimat Glomerular Filtration Rate 49, BUN/Creatinine Ratio 17, Glucose Level 138H, Calcium Level 9.3, Phosphorus Level 5.1H, Magnesium Level 1.9 Microbiology 08/08/19 Influenza Types A,B Antigen (THANG) - Final, Complete Home Meds Active Advair Hfa 115-21 Mcg Inhaler (Fluticasone/Salmeterol) 12 Gm Hfa.aer.ad 2 Puff IH RTBID Klor-Con 10 (Potassium Chloride) 10 Meq Tablet.er 40 Meq PO DAILY@0900 Aspirin 81 Mg Tab.chew 81 Mg PO DAILY@0900 Tamiflu (Oseltamivir Phosphate) 75 Mg Cap 75 Mg PO BID 4 Days Reported Benadryl (Diphenhydramine HCl) 25 Mg Capsule 50 Mg PO DAILY PRN Meloxicam 7.5 Mg Tablet 7.5 Mg PO DAILY PRN Proair Hfa (Albuterol Sulfate) 1 Puff Puff 2 Puff IH Q4H PRN Atorvastatin Calcium 40 Mg Tablet 40 Mg PO DAILY Furosemide 20 Mg Tablet 40 Mg PO DAILY TAKES 2 (20MG) TABS DAILY Hydrochlorothiazide 25 Mg Tablet 25 Mg PO DAILY Assessment/Pt Instructions [facility] 1 week Discharge Planning: <30 minutes discharge planning Discharge Instructions Discharge Diet: No Restrictions Pneumonia Vaccine Order Indica: Yes Discharge Physical Examination Vital Signs Vital Signs Date Time Temp Pulse Resp B/P (MAP) Pulse Ox O2 Delivery O2 Flow Rate FiO2 08/10/19 13:40 95 7.00 08/10/19 13:00 88 08/10/19 12:00 High Flow N/C 08/10/19 12:00 36.2 18 118/68 (85) 08/09/19 14:13 32 General Appearance: No Apparent Distress, WD/WN, Chronically ill Respiratory: Lungs Clear Cardiovascular: Regular Rate, Rhythm Allergies: Coded Allergies: No Known Drug Allergies (Unverified , 05/06/19) Discharge Summary Date of Admission Aug 08, 2019 at 18:10 Date of Discharge Discharge Date: Aug 10, 2019 Admission Diagnosis Assessment: Acute influenza A COVID-19 swab negative NSTEMI Presumed BHASKAR Edema Smoker Plan: Tamiflu ECHO Cardiology and Pulmonary consultations are appreciated Discharge Diagnosis (1) Influenza A (2) COPD exacerbation Status: Acute (3) Elevated troponin Status: Acute (4) Hypoxia Status: Acute (5) Edema Status: Acute Qualifiers: Qualified Codes: R60.9 - Edema, unspecified Clinical Quality Measures DVT/VTE Risk/Contraindication: Risk Factor Score Per Nursin RFS Level Per Nursing on Admit: 4+=Very High DAVID THOMPSON DO Aug 10, 2019 14:41
[2019-08-10] MEDS ORDERED: OSELTAMIVIR 75 MG (TAMIFLU) CAPSULE PO SCH ×2 (14:45)
--- NOTE | 2019-08-10 15:00 | NUR ---
Report from Evelyn DURAN, will assume care of patient at this time.
--- NOTE | 2019-08-10 16:09 | Diagnostic Imaging Report ---
PROCEDURE: US Venous Lower Ext Vidal. TECHNIQUE: Multiple real-time grayscale images were obtained over the lower extremities in various projections, bilaterally. Additional duplex Doppler and color Doppler images were also obtained. INDICATION: Shortness of breath and leg swelling Venous Doppler lower extremities The veins have good color filling and compressibility. There is phasic flow and a normal response to augmentation. IMPRESSION: Negative venous Doppler of the lower extremities Dictated by: Dictated on workstation # [id number]
== END 2019-08-10 16:55 | disposition home or self-care (01) | DRG 193 ==
LOC: EDUNIT# 15:41 → ER 15:42 → ICU 18:10 → 4TH 08-09 17:35
PROVIDERS: ADMIT Internal Medicine; ATTEND Internal Medicine
DX: J10.1 Influenza due to other identified influenza virus with other respiratory manifestations (principal); J44.1 Chronic obstructive pulmonary disease with (acute) exacerbation; I21.A1 Myocardial infarction type 2; R60.0 Localized edema; G47.33 Obstructive sleep apnea (adult) (pediatric); I10 Essential (primary) hypertension; K21.9 Gastro-esophageal reflux disease without esophagitis; K76.0 Fatty (change of) liver, not elsewhere classified; F17.210 Nicotine dependence, cigarettes, uncomplicated; K44.9 Diaphragmatic hernia without obstruction or gangrene; M54.9 Dorsalgia, unspecified; F41.9 Anxiety disorder, unspecified; F32.9 Major depressive disorder, single episode, unspecified; Z90.49 Acquired absence of other specified parts of digestive tract
CPT/HCPCS: 36415; 71045; 80048; 80053; 81000; 83735; 83880; 84100; 84443; 84484; 85025; 85379; 85610; 85652; 86141; 87635; 87804; 93005; 93041; 93306; 93970; 94640; 94760; 94761

== ENCOUNTER 2020-02-16 19:28 | Inpatient (IN) | payer OTHER ==
[~2020-02-16] VITALS: Ht 172 cm; Wt 125.9 kg
[~2020-02-16 19:28] MED LIST changes: +ASPI-999 PO; +ATOR40TA70 PO; +DIPH25CA79 PO; +FLUT12AE4 IH; +KETAMINE HCL 100 MG/ML 5 ML VIAL IJ ONE; +MELO7.5T46 PO; +OSLT75C PO; +POTA10TA6 PO; +ROCURONIUM 10 MG/ML 5 ML SYRINGE IV ONE; +RT-ALBUINH IH
[2020-02-16] MEDS ORDERED: FUROSEMIDE 40 MG/4 ML INJ (LASIX) ONE (20:01)
[2020-02-16] MEDS ORDERED: LORazepam INJ 2 MG/ML (ATIVAN) VIAL ONE (20:02)
[2020-02-16 20:13] VITALS: BP 123/71
[2020-02-16 20:17] LABS: BILIRUBIN,URINE NEGATIVE (NEGATIVE); CLARITY,URINE CLEAR; COLOR,URINE YELLOW; GLUCOSE, URINE (UA) NEGATIVE (NEGATIVE); KETONES,URINE NEGATIVE (NEGATIVE); LEUKOCYTE ESTERASE ,URINE TRACE (NEGATIVE); NITRITE,URINE NEGATIVE (NEGATIVE); PROTEIN,URINE 1+ (NEGATIVE)
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
[2020-02-16 20:23] LABS: BACTERIA,URINE TRACE /HPF; SQUAMOUS EPITHELIAL CELL,UR 0-2 /HPF; WBC,URINE 0-2 /HPF
[2020-02-16] MEDS ORDERED: NS IV 1000 ML 1,000 ML ONE (20:35)
[2020-02-16 20:38] LABS: BASOPHILS % (AUTO) 0 % (0-10); EOSINOPHILS % (AUTO) 0 % (0-10); HEMATOCRIT 47 % (35-52); HEMOGLOBIN 13.6 g/dL (11.5-16.0); LYMPHOCYTES # (AUTO) 1.3 10^3/uL (1.0-4.0); LYMPHOCYTES % (AUTO) 13 % (12-44); MEAN CORPUSCULAR HEMOGLOBIN 25 pg (25-34); MEAN CORPUSCULAR HGB CONC 29 g/dL (32-36); MEAN CORPUSCULAR VOLUME 87 fL (80-99); MEAN PLATELET VOLUME 10.3 fL (9.0-12.2); MONOCYTES % (AUTO) 11 % (0-12); NEUTROPHILS % (AUTO) 75 % (42-75); PLATELET COUNT 220 10^3/uL (130-400); WHITE BLOOD COUNT 9.3 10^3/uL (4.3-11.0)
[2020-02-16 20:50] LABS: INR 1.2 (0.8-1.4); PROTHROMBIN TIME PATIENT 15.1 SEC (12.2-14.7)
[2020-02-16 20:51] LABS: ALBUMIN 3.6 GM/DL (3.2-4.5)
[2020-02-16 20:54] LABS: TOTAL PROTEIN 6.6 GM/DL (6.4-8.2)
[2020-02-16 20:55] LABS: BILIRUBIN,TOTAL 1.4 MG/DL (0.1-1.0)
[2020-02-16 20:56] LABS: ABG BASE EXCESS 13.6 MMOL/L (-2.5-2.5); ABG OXYGEN SATURATION 89 % (94-100); ABG PO2 66 MMHG (79-93); ABG TCO2 42.8 MMOL/L (21.0-31.0)
[2020-02-16] MEDS ORDERED: DexMEDEtomidine PRE MIX 100 ML IV ONE (20:56)
[2020-02-16 20:57] LABS: CREATININE SERUM 1.86 MG/DL (0.60-1.30)
[2020-02-16] MEDS ORDERED: NOREPINEPHRINE 4 MG/250 ML 250 ML IV ONE (21:07)
--- NOTE | 2020-02-16 21:08 | Diagnostic Imaging Report ---
CHEST 1 VIEW, AP/PA ONLY Indication: Intubation Comparison: 08/08/2019 Findings: ET tube has tip 4 cm above the kiko. Enteric tube courses into the stomach and off the [id number]-hl-iwuh. Cardiac silhouette is enlarged. Mild central vascular redistribution. No pleural effusion or pneumothorax. Impression: 1. Well-positioned support devices. 2. Cardiomegaly with potential mild central vascular congestion. Dictated by: Dictated on workstation # [id number]
[2020-02-16] MEDS ORDERED: NS (IVPB) 250 ML IV ONE (21:15)
[2020-02-16] MEDS ORDERED: DexMEDEtomidine PRE MIX 100 ML IV SCH (21:15)
[2020-02-16 21:30] LABS: AMPHETAMINE SCREEN, URINE NEGATIVE (NEGATIVE); BARBITURATE SCREEN URINE NEGATIVE (NEGATIVE); BENZODIAZEPINES SCREEN URINE NEGATIVE (NEGATIVE); CANNABINOID SCREEN, URINE NEGATIVE (NEGATIVE); COCAINE SCREEN URINE NEGATIVE (NEGATIVE); METHADONE STAT NEGATIVE (NEGATIVE); METHAMPHETAMINE SCREEN URINE S NEGATIVE (NEGATIVE); OPIATE SCREEN URINE NEGATIVE (NEGATIVE); OXYCODONE STAT NEGATIVE (NEGATIVE); PROPOXYPHENE STAT NEGATIVE (NEGATIVE); TRICYCLIC ANTIDEPRESSANTS SCRE NEGATIVE (NEGATIVE)
[2020-02-16 21:35] LABS: ABG PCO2 82 MMHG (35-45); ABG PH 7.31 (7.37-7.43); PATIENT TEMP 37; VENTILATOR NO
--- NOTE | 2020-02-16 21:40 | Diagnostic Imaging Report ---
CHEST 1 VIEW, AP/PA ONLY Indication: Central line placement. Comparison: 02/16/2020 at 8:58 PM Findings: Stable ET and enteric tubes. Right IJ central venous catheter has tip terminating in the upper SVC. Stable cardiac enlargement with mild ill-definition of the central pulmonary vasculature. No pleural effusion or pneumothorax. Impression: 1. Right IJ central venous catheter has tip terminating in the upper SVC. No pneumothorax. Dictated by: Dictated on workstation # [id number]
[2020-02-16] MEDS ORDERED: fentaNYL INJECTION 100 MCG/2 ML AMP IVP ONE (22:00)
[2020-02-16] MEDS ORDERED: MIDAZOLAM 5 MG/5 ML (VERSED) VIAL IVP ONE (22:00)
[2020-02-16 22:02] LABS: POTASSIUM 4.4 MMOL/L (3.6-5.0)
--- NOTE | 2020-02-16 22:26 | NUR ---
2034 Pt 87% on bipap RT and Sánchez Mcguire in the room to intubate pt 2037 100mg ketamine administered by Sánchez Mcguire 2039 100mg BENJY administered by Sánchez Mcguire 2038 pt bagged by RT 2039 Pt tubed by Sánchez Mcguire 2040 + color change, + bilat lung sounds, tube 23 cm at the gums, 100% O2 2044 pt suctioned
[2020-02-16] MEDS ORDERED: PROPOFOL DRIP (ICU) 100 ML IV ONE (23:09)
[2020-02-16 23:23] VITALS: BP 125/90
[2020-02-16] MEDS ORDERED: PRECEDEX IV SCH (23:45)
[2020-02-16] MEDS ORDERED: cefTRIAXone 1,000 MG/SWFI 10 ML IV PUSH IV SCH ×2 (23:45)
[2020-02-16] MEDS ORDERED: ENOXAPARIN 80 MG/0.8 ML (LOVENOX) SYR SC SCH (23:55)
[2020-02-16] MEDS: LACTATED RINGERS 1,000 ML IV SCH (23:58)
[2020-02-16] MEDS: NOREPINEPHRINE 4 MG/250 ML 250 ML IV SCH (23:59)
[2020-02-17 01:23] VITALS: BP 114/72
--- NOTE | 2020-02-17 01:39 | NUR ---
DUONEB Q4 AND Q2 PRN TX. RT TO REEVALUATE OR REASSESS IN 72 HOURS OR NEEDED. VENT SETTINGS ARE FOLLOWED: 450 R 24 PEEP 10 TITRATE 02 TO KEEP SATS AT OR GREATER THAN 92%. Addendum: 02/17/20 at 0140 by TATUM CABAN RT Amended: Links added.
[2020-02-17] MEDS ORDERED: RT-ALBUTEROL/IPRATROPIUM 3 ML (DUONEB) VIAL INH PRN (01:45)
--- NOTE | 2020-02-17 01:45 | NUR ---
NOTIFIED EICU OF PT 02 SATS 83%-CHEST XRAY SHOWED NO CHANGE PER REPORT. ORDERS TO INCREASE PEEP FROM 10 TO 15. RT NOTIFIED.
[2020-02-17 01:47] LABS: ABG BASE EXCESS 10.9 MMOL/L (-2.5-2.5); ABG OXYGEN SATURATION 83 % (94-100); ABG PCO2 35 MMHG (35-45); ABG PH 7.59 (7.37-7.43); ABG PO2 40 MMHG (79-93); ABG TCO2 35.3 MMOL/L (21.0-31.0)
[2020-02-17 01:48] LABS: ALLENS TEST POS; INSPIRED O2 100%; VENTILATOR YES
[2020-02-17 01:49] LABS: PATIENT TEMP 35
[2020-02-17] MEDS ORDERED: RT-ALBUTEROL/IPRATROPIUM 3 ML (DUONEB) VIAL INH SCH (02:00)
[2020-02-17] MEDS: PROPOFOL DRIP (ICU) 100 ML IV SCH ×3 (02:47→20:42)
[2020-02-17 03:10] LABS: BASOPHILS % (AUTO) 0 % (0-10); EOSINOPHILS % (AUTO) 0 % (0-10); HEMATOCRIT 47 % (35-52); HEMOGLOBIN 13.8 g/dL (11.5-16.0); LYMPHOCYTES # (AUTO) 1.3 10^3/uL (1.0-4.0); LYMPHOCYTES % (AUTO) 13 % (12-44); MEAN CORPUSCULAR HEMOGLOBIN 25 pg (25-34); MEAN CORPUSCULAR HGB CONC 30 g/dL (32-36); MEAN CORPUSCULAR VOLUME 86 fL (80-99); MEAN PLATELET VOLUME 10.3 fL (9.0-12.2); MONOCYTES # (AUTO) 0.6 10^3/uL (0.0-1.0); MONOCYTES % (AUTO) 7 % (0-12); NEUTROPHILS # (AUTO) 7.4 10^3/uL (1.8-7.8); NEUTROPHILS % (AUTO) 79 % (42-75); PLATELET COUNT 209 10^3/uL (130-400); WHITE BLOOD COUNT 9.4 10^3/uL (4.3-11.0)
[2020-02-17 03:28] LABS: CALCIUM 8.8 MG/DL (8.5-10.1)
[2020-02-17 03:29] VITALS: BP 125/90
[2020-02-17 03:32] LABS: CREATININE SERUM 1.64 MG/DL (0.60-1.30); PHOSPHORUS 3.6 MG/DL (2.3-4.7)
[2020-02-17 03:34] LABS: MAGNESIUM 2.2 MG/DL (1.6-2.4)
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
--- NOTE | 2020-02-17 05:06 | NUR ---
DR CABAN AT BEDSIDE, DECREASED TV TO 400, INCREASED RR TO 24.
[2020-02-17] MEDS: NOREPINEPHRINE 4 MG/250 ML 250 ML IV SCH ×2 (05:07→09:17)
[2020-02-17] MEDS: KCL 20 MEQ TAB (K-DUR) PO SCH (05:08)
[2020-02-17] MEDS: MAGNESIUM 1 GM/100 ML IVPB 100 ML IV SCH (05:08)
[2020-02-17] MEDS: POTASSIUM CL 10MEQ/50ML IVPB 50 ML IV SCH (05:08)
[2020-02-17] MEDS ORDERED: fentaNYL DRIP PRE-MIX 250 ML IV ONE (05:12)
[2020-02-17] MEDS: fentaNYL DRIP PRE-MIX 250 ML IV SCH (05:14)
[2020-02-17] MEDS ORDERED: methylPREDNISolone 40 MG/ML (Solu-MEDROL) VIAL IV SCH (06:00)
[2020-02-17] MEDS ORDERED: inSUlin ASPART (NovoLOG) 1 UNIT/0.01 ML (CHARGE PER UNIT) SC SCH (06:00)
--- NOTE | 2020-02-17 06:04 | Diagnostic Imaging Report ---
Indication: Respiratory failure Portable chest 1:08 AM There is ET tube projects over the trachea. NG tube enters the stomach. Right IJ central line tip projects over the SVC. Heart size and pulmonary vascularity are normal. There is some volume loss at both lung bases. There are no effusions or pneumothoraces. IMPRESSION: No change in the chest compared to the previous day. Dictated by: Dictated on workstation # [id number]
--- NOTE | 2020-02-17 06:42 | Diagnostic Imaging Report ---
PROCEDURE: CT head without contrast. TECHNIQUE: Multiple contiguous axial images were obtained through the brain without the use of intravenous contrast. Auto Exposure Controls were utilized during the CT exam to meet ALARA standards for radiation dose reduction. INDICATION: Altered mental status The ventricles are normal in size, shape and position. There are no masses or hemorrhages. There are no extra-axial fluid collections. There may be some decreased density in the periventricular white matter in both hemispheres. IMPRESSION: Questionable mild white matter edema. I agree with preliminary interpretation. Dictated by: Dictated on workstation # [id number]
[2020-02-17 07:42] VITALS: BP 94/58
[2020-02-17] MEDS ORDERED: IPRATROPIUM INHALER (ATROVENT) 12.9 GM INH SCH (07:42)
[2020-02-17] MEDS ORDERED: RT-ALBUTEROL INHALER HFA (VENTOLIN HFA) 18 GM IH SCH (07:43)
[2020-02-17 08:04] LABS: ABG BASE EXCESS 13.5 MMOL/L (-2.5-2.5); ABG OXYGEN SATURATION 97 % (94-100); ABG PCO2 43 MMHG (35-45); ABG PH 7.54 (7.37-7.43); ABG PO2 90 MMHG (79-93); ABG TCO2 38.7 MMOL/L (21.0-31.0)
[2020-02-17 08:05] LABS: ALLENS TEST YES-POS; INSPIRED O2 100%; VENTILATOR YES
--- NOTE | 2020-02-17 08:05 | Diagnostic Imaging Report ---
PROCEDURE: US Venous Lower Ext [place]. TECHNIQUE: Multiple real-time grayscale images were obtained over the lower extremities in various projections, bilaterally. Additional duplex Doppler and color Doppler images were also obtained. INDICATION: Respiratory failure EXAMINATIONS: Both grayscale and color Doppler imaging of the deep veins of the lower extremities were performed with waveform analysis. FINDINGS: There is no intraluminal filling defect. Normal continuous flow is seen throughout the deep venous systems of both legs, and there is normal response to augmentation. The deep veins compress normally. IMPRESSION: No ultrasound evidence of deep venous thrombosis in either lower extremity. Dictated by: Dictated on workstation # [id number]
--- NOTE | 2020-02-17 08:06 | Occ Therapy Progress Note ---
Therapy Progress Note OT orders received. Chart reviewed. Pt is currently sedated/ on mechanical ventilation. OT to hold tx this date and initiate when medically stable/ able to participate in skilled tx. JARVIS VALDES OTR Feb 17, 2020 08:06
--- NOTE | 2020-02-17 08:07 | Physical Therapy Progress Note ---
Therapy Progress Note Patient currently sedated and intubated. PT will continue to monitor patient status and initiate treatment when patient is medically stable and able to actively participate with skilled therapy. THOR DIAL PT Feb 17, 2020 08:07
[2020-02-17] MEDS ORDERED: PIPERACILLIN/TAZOBACTAM (BULK) 4.5 GM in NS (IVPB) 100 ML IV NR (09:00)
[2020-02-17] MEDS: NYSTATIN CREAM (MYCOSTATIN) 30 GM TUBE TP SCH ×3 (09:00→20:12)
[2020-02-17] MEDS: LACTATED RINGERS 1,000 ML IV SCH ×2 (09:08→20:10)
--- NOTE | 2020-02-17 09:40 | Consultation-Cardiology ---
HPI-Cardiology Cardiology Consultation Date of Consultation 02/17/20 Date of Admission Time Seen by Provider: 09:34 Indication: acute respiratory failure HPI 55-year-old lady with history of tobaccoism, chronic pedal edema, brought by family member for increasing shortness of breath and worsening edema up to her abdomen. Patient progressed into full respiratory failure and she was intubated, currently sedated and intubated, unable to provide any further history, history was obtained by reviewing her record Home Medications & Allergies Allergies: Coded Allergies: No Known Drug Allergies (Unverified , 05/06/19) Home Medication List Reviewed: Yes JHV-Ckeekf-Ujzprt Hx Patient Social History Alcohol Use: Denies Use Recreational Drug Use: No Type Used: Cigarettes 2nd Hand Smoke Exposure: Yes Recent Foreign Travel: No Recent Infectious Disease Expo: No Recent Hopitalizations: No Immunizations Up To Date Tetanus Booster (TDap): Unknown Past Medical History Discussed below Family Medical History Family History: COPD 19 MOTHER Diabetes mellitus 19 FATHER Myocardial infarction 19 FATHER TESTICULAR CANCER G8 BROTHER Review of Systems-General Review of Systems Constitutional: see HPI, other (unable to provide review of system, patient is sedated and intubated) EENTM: see HPI Respiratory: see HPI, cough, dyspnea on exertion Cardiovascular: no symptoms reported Genitourinary: no symptoms reported Musculoskeletal: no symptoms reported Skin: no symptoms reported Psychiatric/Neurological: No Symptoms Reported Reviewed Test Results Reviewed Test Results Lab Laboratory Tests Test 02/16/20 20:09 02/16/20 20:30 02/16/20 20:54 02/17/20 01:40 Range/Units Urine Color YELLOW Urine Clarity CLEAR Urine pH 6.0 5-9 Urine Specific [place] 1.025 H 1.016-1.022 Urine Protein 1+ H NEGATIVE Urine Glucose (UA) NEGATIVE NEGATIVE Urine Ketones NEGATIVE NEGATIVE Urine Nitrite NEGATIVE NEGATIVE Urine Bilirubin NEGATIVE NEGATIVE Urine Urobilinogen 4.0 < = 1.0 MG/DL Urine Leukocyte Esterase TRACE H NEGATIVE Urine RBC (Auto) NEGATIVE NEGATIVE Urine RBC NONE /HPF Urine WBC 0-2 /HPF Urine Squamous Epithelial Cells 0-2 /HPF Urine Crystals NONE /LPF Urine Bacteria TRACE /HPF Urine Casts PRESENT /LPF Urine Hyaline Casts 2-5 H /LPF Urine Mucus SMALL H /LPF Urine Culture Indicated NO Urine Opiates Screen NEGATIVE NEGATIVE Urine Oxycodone Screen NEGATIVE NEGATIVE Urine Methadone Screen NEGATIVE NEGATIVE Urine Propoxyphene Screen NEGATIVE NEGATIVE Urine Barbiturates Screen NEGATIVE NEGATIVE Ur Tricyclic Antidepressants Screen NEGATIVE NEGATIVE Urine Phencyclidine Screen NEGATIVE NEGATIVE Urine Amphetamines Screen NEGATIVE NEGATIVE Urine Methamphetamines Screen NEGATIVE NEGATIVE Urine Benzodiazepines Screen NEGATIVE NEGATIVE Urine Cocaine Screen NEGATIVE NEGATIVE Urine Cannabinoids Screen NEGATIVE NEGATIVE White Blood Count 9.3 4.3-11.0 10^3/uL Red Blood Count 5.37 H 3.80-5.11 10^6/uL Hemoglobin 13.6 11.5-16.0 g/dL Hematocrit 47 35-52 % Mean Corpuscular Volume 87 80-99 fL Mean Corpuscular Hemoglobin 25 25-34 pg Mean Corpuscular Hemoglobin Concent 29 L 32-36 g/dL Red Cell Distribution Width 17.8 H 10.0-14.5 % Platelet Count 220 130-400 10^3/uL Mean Platelet Volume 10.3 9.0-12.2 fL Immature Granulocyte % (Auto) 0 % Neutrophils (%) (Auto) 75 42-75 % Lymphocytes (%) (Auto) 13 12-44 % Monocytes (%) (Auto) 11 0-12 % Eosinophils (%) (Auto) 0 0-10 % Basophils (%) (Auto) 0 0-10 % Neutrophils # (Auto) 7.0 1.8-7.8 10^3/uL Lymphocytes # (Auto) 1.3 1.0-4.0 10^3/uL Monocytes # (Auto) 1.0 0.0-1.0 10^3/uL Eosinophils # (Auto) 0.0 0.0-0.3 10^3/uL Basophils # (Auto) 0.0 0.0-0.1 10^3/uL Immature Granulocyte # (Auto) 0.0 0.0-0.1 10^3/uL Prothrombin Time 15.1 H 12.2-14.7 SEC INR Comment 1.2 0.8-1.4 Blood Gas Puncture Site UNK RT RAD Blood Gas Patient Temperature 37 35 Arterial Blood pH 7.31 *L 7.59 H 7.37-7.43 Arterial Blood Partial Pressure CO2 82 *H 35 35-45 MMHG Arterial Blood Partial Pressure O2 66 L 40 L 79-93 MMHG Arterial Blood HCO3 40 H 34 H 23-27 MMOL/L Arterial Blood Total CO2 42.8 H 35.3 H 21.0-31.0 MMOL/L Arterial Blood Oxygen Saturation 89 L 83 L 94-100 % Arterial Blood Base Excess 13.6 H 10.9 H -2.5-2.5 MMOL/L Juancho Test UNK POS Blood Gas Ventilator Setting NO YES Blood Gas Inspired Oxygen UNK 100% Sodium Level 138 135-145 MMOL/L Potassium Level 4.4 3.6-5.0 MMOL/L Chloride Level 90 L 98-107 MMOL/L Carbon Dioxide Level 35 H 21-32 MMOL/L Anion Gap 13 5-14 MMOL/L Blood Urea Nitrogen 83 H 7-18 MG/DL Creatinine 1.86 H 0.60-1.30 MG/DL Estimat Glomerular Filtration Rate 28 BUN/Creatinine Ratio 45 Glucose Level 125 H 70-105 MG/DL Calcium Level 9.0 8.5-10.1 MG/DL Corrected Calcium 9.3 8.5-10.1 MG/DL Total Bilirubin 1.4 H 0.1-1.0 MG/DL Aspartate Amino Transf (AST/SGOT) 42 H 5-34 U/L Alanine Aminotransferase (ALT/SGPT) 46 0-55 U/L Alkaline Phosphatase 82 40-136 U/L Ammonia 34 H 11-32 UMOL/L Troponin I 0.045 H <0.028 NG/ML B-Type Natriuretic Peptide 1302.3 H <100.0 PG/ML Total Protein 6.6 6.4-8.2 GM/DL Albumin 3.6 3.2-4.5 GM/DL Procalcitonin 0.12 H <0.10 NG/ML Coronavirus 2019 ([facility]) Negative Negative Test 02/17/20 02:47 02/17/20 04:55 02/17/20 07:45 Range/Units White Blood Count 9.4 4.3-11.0 10^3/uL Red Blood Count 5.44 H 3.80-5.11 10^6/uL Hemoglobin 13.8 11.5-16.0 g/dL Hematocrit 47 35-52 % Mean Corpuscular Volume 86 80-99 fL Mean Corpuscular Hemoglobin 25 25-34 pg Mean Corpuscular Hemoglobin Concent 30 L 32-36 g/dL Red Cell Distribution Width 17.5 H 10.0-14.5 % Platelet Count 209 130-400 10^3/uL Mean Platelet Volume 10.3 9.0-12.2 fL Immature Granulocyte % (Auto) 1 % Neutrophils (%) (Auto) 79 H 42-75 % Lymphocytes (%) (Auto) 13 12-44 % Monocytes (%) (Auto) 7 0-12 % Eosinophils (%) (Auto) 0 0-10 % Basophils (%) (Auto) 0 0-10 % Neutrophils # (Auto) 7.4 1.8-7.8 10^3/uL Lymphocytes # (Auto) 1.3 1.0-4.0 10^3/uL Monocytes # (Auto) 0.6 0.0-1.0 10^3/uL Eosinophils # (Auto) 0.0 0.0-0.3 10^3/uL Basophils # (Auto) 0.0 0.0-0.1 10^3/uL Immature Granulocyte # (Auto) 0.1 0.0-0.1 10^3/uL D-Dimer 2.73 H 0.00-0.49 UG/ML Sodium Level 137 135-145 MMOL/L Potassium Level 4.0 3.6-5.0 MMOL/L Chloride Level 89 L 98-107 MMOL/L Carbon Dioxide Level 32 21-32 MMOL/L Anion Gap 16 H 5-14 MMOL/L Blood Urea Nitrogen 83 H 7-18 MG/DL Creatinine 1.64 H 0.60-1.30 MG/DL Estimat Glomerular Filtration Rate 33 BUN/Creatinine Ratio 51 Glucose Level 138 H 70-105 MG/DL Calcium Level 8.8 8.5-10.1 MG/DL Phosphorus Level 3.6 2.3-4.7 MG/DL Magnesium Level 2.2 1.6-2.4 MG/DL Triglycerides Level 124 <150 MG/DL Blood Gas Puncture Site RIGHT RAD Blood Gas Patient Temperature 37.0 Arterial Blood pH 7.54 H 7.37-7.43 Arterial Blood Partial Pressure CO2 43 35-45 MMHG Arterial Blood Partial Pressure O2 90 79-93 MMHG Arterial Blood HCO3 37 H 23-27 MMOL/L Arterial Blood Total CO2 38.7 H 21.0-31.0 MMOL/L Arterial Blood Oxygen Saturation 97 94-100 % Arterial Blood Base Excess 13.5 H -2.5-2.5 MMOL/L Juancho Test YES-POS Blood Gas Ventilator Setting YES Blood Gas Inspired Oxygen 100% Physical Exam Physical Exam Vital Signs Vital Signs - First Documented 02/16/20 02/16/20 19:44 20:39 Temp 36.3 Pulse 75 Resp 20 B/P (MAP) 114/72 (86) Pulse Ox 91 O2 Delivery Nasal Cannula O2 Flow Rate 5.00 FiO2 100 Capillary Refill : Less Than 3 Seconds Height, Weight, BMI Height: 5'7.00" Weight: 220lbs. 0.0oz. 99.826253an; 44.95 BMI Method:Stated General Appearance: Obese, Other (sedated and intubated) Eyes: Bilateral Eye Normal Inspection, Bilateral Eye PERRL, Bilateral Eye EOMI HEENT: PERRL/EOMI Respiratory: Stridor, Other (currently on the vent) Cardiovascular: Regular Rate, Rhythm, No Gallop, No JVD, No Murmur Extremity: Other (3+ significant edema going up to the hip and including the abdomen) Neurologic/Psychiatric: Other (sedated and intubated) Skin: Erythema A/P-Cardiology Assessment/Plan Acute respiratory failure, ventilator dependent, managed by Dr. Hummel Influenza B infection, managed by Dr. Hummel Congestive heart failure, significant edema. Last echo was done in July 2019 showing normal LV size and function, had significant elevation in BNP, has been maintained on Lasix as an outpatient. I will resume Lasix and monitor tolerance and response Borderline hypotension, will consider the addition of pressors if needed. Mild elevation in troponin, probably type II myocardial infarction secondary to hypoxemia and respiratory failure. Patient had significant history of coronary artery disease, had a cardiac catheterization in 2009 and noted to have occlusion in the LAD, had intra-aortic balloon pump and she was transferred to a tertiary care center. Acute on chronic renal insufficiency, continue to monitor renal function. Tobaccoism Clinical Quality Measures DVT/VTE Risk/Contraindication: Risk Factor Score Per Nursin RFS Level Per Nursing on Admit: 4+=Very High JOYCE ANDREA MD Feb 17, 2020 09:40
[2020-02-17] MEDS ORDERED: VANCOMYCIN INJECTION 0.1 MG in NS (IVPB) 250 ML IV SCH (09:45)
[2020-02-17] MEDS: OSELTAMIVIR 6 MG/ML (TAMIFLU) 60 ML BOT PEG SCH ×2 (09:49→20:11)
[2020-02-17] MEDS: VANCOMYCIN 2000 MG/NS 500 ML IVPB IV SCH ×2 (10:34)
[2020-02-17 11:23] VITALS: BP 106/68
--- NOTE | 2020-02-17 11:38 | History & Physical ---
HPI History of Present Illness: 55 yo F that presented with altered mental status and severe hypoxia to ER. Per ER note patient was noted to be more confused and they noticed that it was getting worse and was brought in by her daughter. Daughter states that patient was trying to light her cig with a flashlight. She had noticed that she was more short of breath and had increasing swelling in her legs. Source: family, RN/MD Exam Limitations: no limitations Date seen by provider: Feb 17, 2020 Time Seen by Provider: 09:00 Attending Physician Shaneka Quintanilla MD PCP Lamont Ramirez MD Consult Date of Admission Feb 16, 2020 at 21:59 Home Medications Home Medications Reviewed patient Home Medication Reconciliation performed by pharmacy medication reconciliations case technician and/or nursing. Patients Allergies have been reviewed. Allergies Coded Allergies: No Known Drug Allergies (Unverified , 05/06/19) WSG-Yimate-Xlgaec Hx Patient Social History Alcohol Use: Denies Use Recreational Drug Use: No Type Used: Cigarettes 2nd Hand Smoke Exposure: Yes Recent Foreign Travel: No Contact w/other who traveled: No Recent Hopitalizations: No Recent Infectious Disease Expo: No Immunizations Up To Date Tetanus Booster (TDap): Unknown Past Medical History Tobacco Abuse COPD HTN HLD Family Medical History Significant Family History: No Pertinent Family Hx Family History: COPD 19 MOTHER Diabetes mellitus 19 FATHER Myocardial infarction 19 FATHER TESTICULAR CANCER G8 BROTHER Review of Systems ([facility]) Constitutional: other (Unable to obtain due to patient being intubated) Reviewed Test Results Reviewed Test Results Lab Laboratory Tests Test 02/16/20 20:09 02/16/20 20:30 02/16/20 20:54 02/17/20 01:40 Range/Units Urine Color YELLOW Urine Clarity CLEAR Urine pH 6.0 5-9 Urine Specific [place] 1.025 H 1.016-1.022 Urine Protein 1+ H NEGATIVE Urine Glucose (UA) NEGATIVE NEGATIVE Urine Ketones NEGATIVE NEGATIVE Urine Nitrite NEGATIVE NEGATIVE Urine Bilirubin NEGATIVE NEGATIVE Urine Urobilinogen 4.0 < = 1.0 MG/DL Urine Leukocyte Esterase TRACE H NEGATIVE Urine RBC (Auto) NEGATIVE NEGATIVE Urine RBC NONE /HPF Urine WBC 0-2 /HPF Urine Squamous Epithelial Cells 0-2 /HPF Urine Crystals NONE /LPF Urine Bacteria TRACE /HPF Urine Casts PRESENT /LPF Urine Hyaline Casts 2-5 H /LPF Urine Mucus SMALL H /LPF Urine Culture Indicated NO Urine Opiates Screen NEGATIVE NEGATIVE Urine Oxycodone Screen NEGATIVE NEGATIVE Urine Methadone Screen NEGATIVE NEGATIVE Urine Propoxyphene Screen NEGATIVE NEGATIVE Urine Barbiturates Screen NEGATIVE NEGATIVE Ur Tricyclic Antidepressants Screen NEGATIVE NEGATIVE Urine Phencyclidine Screen NEGATIVE NEGATIVE Urine Amphetamines Screen NEGATIVE NEGATIVE Urine Methamphetamines Screen NEGATIVE NEGATIVE Urine Benzodiazepines Screen NEGATIVE NEGATIVE Urine Cocaine Screen NEGATIVE NEGATIVE Urine Cannabinoids Screen NEGATIVE NEGATIVE White Blood Count 9.3 4.3-11.0 10^3/uL Red Blood Count 5.37 H 3.80-5.11 10^6/uL Hemoglobin 13.6 11.5-16.0 g/dL Hematocrit 47 35-52 % Mean Corpuscular Volume 87 80-99 fL Mean Corpuscular Hemoglobin 25 25-34 pg Mean Corpuscular Hemoglobin Concent 29 L 32-36 g/dL Red Cell Distribution Width 17.8 H 10.0-14.5 % Platelet Count 220 130-400 10^3/uL Mean Platelet Volume 10.3 9.0-12.2 fL Immature Granulocyte % (Auto) 0 % Neutrophils (%) (Auto) 75 42-75 % Lymphocytes (%) (Auto) 13 12-44 % Monocytes (%) (Auto) 11 0-12 % Eosinophils (%) (Auto) 0 0-10 % Basophils (%) (Auto) 0 0-10 % Neutrophils # (Auto) 7.0 1.8-7.8 10^3/uL Lymphocytes # (Auto) 1.3 1.0-4.0 10^3/uL Monocytes # (Auto) 1.0 0.0-1.0 10^3/uL Eosinophils # (Auto) 0.0 0.0-0.3 10^3/uL Basophils # (Auto) 0.0 0.0-0.1 10^3/uL Immature Granulocyte # (Auto) 0.0 0.0-0.1 10^3/uL Prothrombin Time 15.1 H 12.2-14.7 SEC INR Comment 1.2 0.8-1.4 Blood Gas Puncture Site UNK RT RAD Blood Gas Patient Temperature 37 35 Arterial Blood pH 7.31 *L 7.59 H 7.37-7.43 Arterial Blood Partial Pressure CO2 82 *H 35 35-45 MMHG Arterial Blood Partial Pressure O2 66 L 40 L 79-93 MMHG Arterial Blood HCO3 40 H 34 H 23-27 MMOL/L Arterial Blood Total CO2 42.8 H 35.3 H 21.0-31.0 MMOL/L Arterial Blood Oxygen Saturation 89 L 83 L 94-100 % Arterial Blood Base Excess 13.6 H 10.9 H -2.5-2.5 MMOL/L Juancho Test UNK POS Blood Gas Ventilator Setting NO YES Blood Gas Inspired Oxygen UNK 100% Sodium Level 138 135-145 MMOL/L Potassium Level 4.4 3.6-5.0 MMOL/L Chloride Level 90 L 98-107 MMOL/L Carbon Dioxide Level 35 H 21-32 MMOL/L Anion Gap 13 5-14 MMOL/L Blood Urea Nitrogen 83 H 7-18 MG/DL Creatinine 1.86 H 0.60-1.30 MG/DL Estimat Glomerular Filtration Rate 28 BUN/Creatinine Ratio 45 Glucose Level 125 H 70-105 MG/DL Calcium Level 9.0 8.5-10.1 MG/DL Corrected Calcium 9.3 8.5-10.1 MG/DL Total Bilirubin 1.4 H 0.1-1.0 MG/DL Aspartate Amino Transf (AST/SGOT) 42 H 5-34 U/L Alanine Aminotransferase (ALT/SGPT) 46 0-55 U/L Alkaline Phosphatase 82 40-136 U/L Ammonia 34 H 11-32 UMOL/L Troponin I 0.045 H <0.028 NG/ML B-Type Natriuretic Peptide 1302.3 H <100.0 PG/ML Total Protein 6.6 6.4-8.2 GM/DL Albumin 3.6 3.2-4.5 GM/DL Procalcitonin 0.12 H <0.10 NG/ML Coronavirus 2019 ([facility]) Negative Negative Test 02/17/20 02:47 02/17/20 04:55 02/17/20 07:45 Range/Units White Blood Count 9.4 4.3-11.0 10^3/uL Red Blood Count 5.44 H 3.80-5.11 10^6/uL Hemoglobin 13.8 11.5-16.0 g/dL Hematocrit 47 35-52 % Mean Corpuscular Volume 86 80-99 fL Mean Corpuscular Hemoglobin 25 25-34 pg Mean Corpuscular Hemoglobin Concent 30 L 32-36 g/dL Red Cell Distribution Width 17.5 H 10.0-14.5 % Platelet Count 209 130-400 10^3/uL Mean Platelet Volume 10.3 9.0-12.2 fL Immature Granulocyte % (Auto) 1 % Neutrophils (%) (Auto) 79 H 42-75 % Lymphocytes (%) (Auto) 13 12-44 % Monocytes (%) (Auto) 7 0-12 % Eosinophils (%) (Auto) 0 0-10 % Basophils (%) (Auto) 0 0-10 % Neutrophils # (Auto) 7.4 1.8-7.8 10^3/uL Lymphocytes # (Auto) 1.3 1.0-4.0 10^3/uL Monocytes # (Auto) 0.6 0.0-1.0 10^3/uL Eosinophils # (Auto) 0.0 0.0-0.3 10^3/uL Basophils # (Auto) 0.0 0.0-0.1 10^3/uL Immature Granulocyte # (Auto) 0.1 0.0-0.1 10^3/uL D-Dimer 2.73 H 0.00-0.49 UG/ML Sodium Level 137 135-145 MMOL/L Potassium Level 4.0 3.6-5.0 MMOL/L Chloride Level 89 L 98-107 MMOL/L Carbon Dioxide Level 32 21-32 MMOL/L Anion Gap 16 H 5-14 MMOL/L Blood Urea Nitrogen 83 H 7-18 MG/DL Creatinine 1.64 H 0.60-1.30 MG/DL Estimat Glomerular Filtration Rate 33 BUN/Creatinine Ratio 51 Glucose Level 138 H 70-105 MG/DL Calcium Level 8.8 8.5-10.1 MG/DL Phosphorus Level 3.6 2.3-4.7 MG/DL Magnesium Level 2.2 1.6-2.4 MG/DL Triglycerides Level 124 <150 MG/DL Blood Gas Puncture Site RIGHT RAD Blood Gas Patient Temperature 37.0 Arterial Blood pH 7.54 H 7.37-7.43 Arterial Blood Partial Pressure CO2 43 35-45 MMHG Arterial Blood Partial Pressure O2 90 79-93 MMHG Arterial Blood HCO3 37 H 23-27 MMOL/L Arterial Blood Total CO2 38.7 H 21.0-31.0 MMOL/L Arterial Blood Oxygen Saturation 97 94-100 % Arterial Blood Base Excess 13.5 H -2.5-2.5 MMOL/L Juancho Test YES-POS Blood Gas Ventilator Setting YES Blood Gas Inspired Oxygen 100% Physical Exam-([facility]) Physical Exam Vital Signs VS - Last 72 Hours, by Label 02/16/20 02/16/20 02/16/20 02/16/20 19:44 20:13 20:39 21:09 Temp 36.3 36.7 Pulse 75 72 75 80 Resp 20 16 16 15 B/P (MAP) 114/72 (86) 95/63 Pulse Ox 91 95 95 83 O2 Delivery Nasal Cannula Mechanical Ventilator O2 Flow Rate 5.00 100.00 50.00 FiO2 100 02/16/20 02/16/20 02/16/20 02/16/20 21:37 22:50 23:09 23:23 Temp 36.7 36.3 Pulse 60 76 75 75 Resp 16 16 16 B/P (MAP) 92/32 128/64 (52) 125/90 Pulse Ox 96 93 95 O2 Delivery Mechanical Ventilator Mechanical Ventilator O2 Flow Rate 50.00 60.00 FiO2 100 02/16/20 02/16/20 02/16/20 02/17/20 23:30 23:43 23:52 00:00 Temp 36.3 Pulse 69 69 58 Resp 16 24 B/P (MAP) 125/90 110/72 Pulse Ox 93 93 96 O2 Delivery Mechanical Ventilator Mechanical Ventilator Mechanical Ventilator O2 Flow Rate 60.00 50.00 FiO2 60 02/17/20 02/17/20 02/17/20 02/17/20 00:00 01:00 01:00 01:23 Temp 36.3 Pulse 57 57 75 B/P (MAP) 112/77 Pulse Ox 87 91 O2 Delivery Mechanical Ventilator Mechanical Ventilator O2 Flow Rate 50.00 50.00 FiO2 40 02/17/20 02/17/20 02/17/20 02/17/20 02:00 02:47 03:00 03:29 Pulse 57 75 56 54 Resp 24 24 16 B/P (MAP) 107/72 114/72 100/65 Pulse Ox 82 97 89 O2 Delivery Mechanical Ventilator Mechanical Ventilator O2 Flow Rate 50.00 50.00 FiO2 100 02/17/20 02/17/20 02/17/20 02/17/20 04:00 04:00 05:00 06:00 Temp 36.4 Pulse 58 60 60 Resp 15 12 23 B/P (MAP) 91/60 89/58 91/57 Pulse Ox 93 93 89 O2 Delivery Mechanical Ventilator Mechanical Ventilator Mechanical Ventilator Mechanical Ventilator O2 Flow Rate 80.00 80.00 80.00 80.00 02/17/20 02/17/20 02/17/20 02/17/20 06:27 07:00 07:00 07:35 Temp 37.6 Pulse 60 60 Resp 24 B/P (MAP) 94/60 Pulse Ox 92 O2 Delivery Mechanical Ventilator Mechanical Ventilator O2 Flow Rate 100.00 80.00 02/17/20 02/17/20 02/17/20 02/17/20 07:37 07:42 08:00 09:00 Pulse 57 57 56 56 Resp 24 23 24 B/P (MAP) 94/58 96/63 99/65 Pulse Ox 97 99 100 O2 Delivery Mechanical Ventilator Mechanical Ventilator O2 Flow Rate 80.00 80.00 FiO2 100 02/17/20 02/17/20 02/17/20 02/17/20 09:00 09:12 10:00 10:15 Pulse 57 Resp 23 B/P (MAP) 102/61 Pulse Ox 100 O2 Delivery Mechanical Ventilator Mechanical Ventilator Mechanical Ventilator Mechanical Ventilator O2 Flow Rate 100.00 100.00 85.00 FiO2 100 02/17/20 02/17/20 11:00 11:23 Pulse 56 58 Resp 24 24 B/P (MAP) 106/68 Pulse Ox 98 96 O2 Delivery Mechanical Ventilator O2 Flow Rate 85.00 FiO2 45 Capillary Refill : Less Than 3 Seconds General Appearance: other (Intubated and sedated) Respiratory: other (Diminished breath sounds in all lung huber with end exp wheezing) Cardiovascular: regular rate, rhythm, no murmur Gastrointestinal: soft; No distended Extremities: other (3+ pitting edema bilaterally with erythema to knees) Assessment/Plan Assessment/Plan Admission Status: Inpatient Order (span 2 midnights) Reason for Inpatient Admission: Patient requiring ICU care and airway management (1) Acute and chronic respiratory failure with hypoxia Status: Acute Assessment & Plan: - Patient intubated in ER, Dr Hummel consulted and managing vent (2) Septic shock Status: Acute Assessment & Plan: - Patient requiring pressors, Cultures pending, Added Zosyn and Tamiflu this AM, continue rocephin, PUI: Covid pending (3) Influenza B Status: Acute Assessment & Plan: - Tamiflu (4) Acute renal failure (ARF) Status: Acute Assessment & Plan: - Patient is overall fluid overloaded but she is 3rd spacing, Continue IVFs to maintain MAP >60 (5) Elevated troponin Assessment & Plan: - Cardiology consulted, likely Type II due to respiratory failure (6) Elevated brain natriuretic peptide (BNP) level Status: Acute Assessment & Plan: - Will get Echo (7) Swelling of lower extremity Status: Acute Assessment & Plan: - Dopplers neg, continue to monitor, will benefit from lasix after blood pressure stablizes (8) DVT prophylaxis Status: Acute Assessment & Plan: Lovenox Clinical Quality Measures DVT/VTE Risk/Contraindication: Risk Factor Score Per Nursin RFS Level Per Nursing on Admit: 4+=Very High Copy Copies To 1: LAMONT RAMIREZ MD, HOLLY R MD Feb 17, 2020 11:38
[2020-02-17] MEDS: ENOXAPARIN 300 MG/3 ML (LOVENOX) MULTI-DOSE VIAL SQ SCH ×2 (11:46→23:21)
[2020-02-17] MEDS: ARTIFICIAL TEARS OINT (LACRI-LUBE) 3.5 GM TUBE OU SCH ×2 (11:46→20:11)
[2020-02-17] MEDS: inSUlin ASPART (NovoLOG) 1 UNIT/0.01 ML (CHARGE PER UNIT) SC SCH ×3 (11:51→23:10)
[2020-02-17] MEDS ORDERED: PROPOFOL DRIP (ICU) 100 ML IV ONE ×2 (13:41→17:25)
--- NOTE | 2020-02-17 13:41 | Physical Therapy Progress Note ---
Therapy Progress Note Non skilled PROM B U/LE's in available planes. TETO STINSON PT Feb 17, 2020 13:41
[2020-02-17] MEDS ORDERED: ASPI-999 PO (14:49)
[2020-02-17] MEDS ORDERED: POTA-51 PO (14:49)
[2020-02-17] MEDS: PIPERACILLIN/TAZOBACTAM (BULK) 4.5 GM in NS (IVPB) 100 ML IV SCH ×2 (15:26→23:11)
--- NOTE | 2020-02-17 15:58 | NUR ---
UNABLE TO SPEAK WITH THE PT AT THIS TIME- I CALLED PTS DAUGHTER (RODRIGUE) AND GOT A MED LIST FROM [facility] AND [facility] TO ENTER THE MED REC AT THIS TIME. RODRIGUE COULDNT REMEMBER THE NAMES OF HER MOTHERS MEDICATIONS BUT IF I NAMED THEM (USING THE MED LIST FROM [facility]) AND EXPLAINED WHAT THEY WERE FOR SHE WAS ABLE TO VERIFY THE PT IS TAKING. ACCORDING TO RODRIGUE SHE DOES NOT THINK HER MOTHER HAS BEEN TAKING HER MEDICATIONS PROPERLY OR AT ALL RECENTLY. THE FOLLOWING ARE FILL DATES FROM [facility]: 11-29-2019 HCTZ 25MG #90/90DS 01-15-2020 PROAIR #1 02-01-2020 ATORVASTATIN 40MG #90/90DS 02-01-2020 POTASSIUM CL ER 20MEQ #60/30DS 02-01-2020 FUROSEMIDE 20MG #60/30DS OTC MEDS: ASPIRIN 81MG BENADRYL WHEN PT WAS LAST HERE IN JULY 2019 SHE WAS DISCHARGED WITH AN ADVAIR HFA, HOWEVER ON THE [facility] MED LIST IT SAYS PT IS NOT TAKING THIS MEDICATION AND THE ONLY INHALER RODRIGUE KNOWS ABOUT IS PROAIR
--- NOTE | 2020-02-17 16:55 | NUR ---
PT IN PRONE POSITION, VENT ALARMING LOW TV. PPE DONNED TO ASSESS PT, PT FOUND W/ LARGE AMT OF THICK YELLOW SPUTUM IN AIRWAY. PT SUCTIONED. ETT NO LONGER MEASURING 21 AT LIP PREVIOUSLY. THIS RN, JAQUELINE RN, JOSE LUIS RN, AND OBDULIA RT ALL IN ROOM W/ PT. PT RETURNED TO SUPINE POSITION. DR CABAN ON FLOOR AND NOTIFIED. DR CABAN AT HEAD OF BED; OLD ETT REMOVED, DR HENSON. PT REINTUBATED W/ 7.[address] CABAN. COLOR CHANGE NOTED. NEW OG INSERTED BY NURSING STAFF. ETT 21 AT LIP. CHEST XRAY REVIEWED BY DR CABAN. SAME VENT SETTINGS APPLIED PREVIOUS.
[2020-02-17 17:08] VITALS: BP 90/60
--- NOTE | 2020-02-17 17:24 | Pulmonary Procedures ---
Pulmonary Procedures Date of Procedure Date of Service: Feb 17, 2020 Reason for Intubation: resp failure s/p self extubation Time of Intubation: 17:23 Intubation Method: orotracheal Tube Size: 8 Medications: Propofol Positive End Tide CO2: Yes Breath Sounds after Intubation: bilateral-equal Intubation Complications: no complications Post Intubation Xray: Yes STU CABAN DO Feb 17, 2020 17:24
--- NOTE | 2020-02-17 17:48 | Diagnostic Imaging Report ---
EXAMINATION: Chest radiograph, portable AP view. DATE: 02/17/2020 5:41 PM. INDICATION: 55-year-old female, post intubation. COMPARISON: February 17, 2020. FINDINGS: The endotracheal tube is roughly 7 cm above the kiko. The nasogastric tube appears to be at the level of the stomach. There are technical limitations of the exam relating to patient body habitus and difficulties with exposure. The exact position of the nasogastric tube is difficult to definitively state. There is a right internal jugular central venous line overlying the upper SVC. Stable overall appearance of the cardiomediastinal silhouette. There is no identified pneumothorax. There is blunting of the left lateral costophrenic angle. IMPRESSION: 1. Technical limitations of the exam relating to patient body habitus and difficulties with exposure. 2. Nonspecific left basilar airspace consolidation which may relate to atelectasis, infiltrate and/or small effusion. 3. Support lines and tubes as above. Dictated by: Dictated on workstation # [id number]
[2020-02-17] MEDS ORDERED: LACTATED RINGERS 1,000 ML IV ONE (18:29)
[2020-02-17] MEDS ORDERED: RT-ALBUTEROL INHALER HFA (VENTOLIN HFA) 18 GM IH PRN (20:00)
--- NOTE | 2020-02-17 21:26 | NUR ---
UPDATED PT DAUGHTER, BALDEMAR.
[2020-02-17 21:36] VITALS: BP 127/80
[2020-02-17] MEDS ORDERED: ENOXAPARIN 100 MG/1 ML (LOVENOX) SYR ONE (23:19)
[2020-02-17] MEDS ORDERED: ENOXAPARIN 30 MG/0.3 ML (LOVENOX) SYR ONE (23:20)
--- NOTE | 2020-02-18 01:58 | NUR ---
THIS RN CONTACTED BY EICU ABOUT TUBE PLACEMENT-ORDERS TO ADVANCE TUBE 2CM AFTER PT IS SUPINED IN AM-
[2020-02-18 02:12] VITALS: BP 127/80
[2020-02-18] MEDS: PROPOFOL DRIP (ICU) 100 ML IV SCH ×7 (03:10→23:34)
[2020-02-18 03:28] LABS: ABG BASE EXCESS 12.4 MMOL/L (-2.5-2.5); ABG OXYGEN SATURATION 95 % (94-100); ABG PCO2 40 MMHG (35-45); ABG PH 7.56 (7.37-7.43); ABG PO2 73 MMHG (79-93); ABG TCO2 37.2 MMOL/L (21.0-31.0)
[2020-02-18 03:32] LABS: ALLENS TEST YES-POS; INSPIRED O2 40%; PATIENT TEMP 36.3; VENTILATOR YES
[2020-02-18 03:35] LABS: BASOPHILS % (AUTO) 0 % (0-10); EOSINOPHILS % (AUTO) 0 % (0-10); HEMATOCRIT 41 % (35-52); HEMOGLOBIN 12.6 g/dL (11.5-16.0); LYMPHOCYTES # (AUTO) 0.8 10^3/uL (1.0-4.0); LYMPHOCYTES % (AUTO) 5 % (12-44); MEAN CORPUSCULAR HEMOGLOBIN 25 pg (25-34); MEAN CORPUSCULAR HGB CONC 31 g/dL (32-36); MEAN CORPUSCULAR VOLUME 82 fL (80-99); MEAN PLATELET VOLUME 10.1 fL (9.0-12.2); MONOCYTES % (AUTO) 6 % (0-12); NEUTROPHILS # (AUTO) 13.1 10^3/uL (1.8-7.8); NEUTROPHILS % (AUTO) 88 % (42-75); PLATELET COUNT 211 10^3/uL (130-400); WHITE BLOOD COUNT 14.9 10^3/uL (4.3-11.0)
[2020-02-18 03:44] LABS: POTASSIUM 3.9 MMOL/L (3.6-5.0)
[2020-02-18 03:45] LABS: CALCIUM 8.2 MG/DL (8.5-10.1)
[2020-02-18 03:49] LABS: PHOSPHORUS 4.1 MG/DL (2.3-4.7)
[2020-02-18 03:50] LABS: CREATININE SERUM 1.72 MG/DL (0.60-1.30)
[2020-02-18 03:52] LABS: MAGNESIUM 2.2 MG/DL (1.6-2.4)
[2020-02-18 04:16] LABS: BAND NEUTROPHILS 6 %; LYMPHOCYTES % (MANUAL) 2 %; MONOCYTES % (MANUAL) 4 %; NEUTROPHILS % (MANUAL) 88 %
[2020-02-18 04:17] LABS: NUCLEATED RED BLOOD CELLS 1; RBC MORPH NORMAL
[2020-02-18] MEDS: LACTATED RINGERS 1,000 ML IV SCH (04:54)
[2020-02-18] MEDS: KCL 20 MEQ TAB (K-DUR) PO SCH (05:05)
[2020-02-18] MEDS: POTASSIUM CL 10MEQ/50ML IVPB 50 ML IV SCH (05:05)
[2020-02-18] MEDS: MAGNESIUM 1 GM/100 ML IVPB 100 ML IV SCH (05:05)
[2020-02-18] MEDS: inSUlin ASPART (NovoLOG) 1 UNIT/0.01 ML (CHARGE PER UNIT) SC SCH ×4 (05:06→23:28)
--- NOTE | 2020-02-18 05:42 | Pulmonary Progress Note ---
Subjective Time Seen by a Provider: 05:36 Subjective/Events-last exam Pt is sedated on vent. Sepsis Event Evaluation Height, Weight, BMI Height: 5'7.00" Weight: 220lbs. 0.0oz. 99.758709ci; 44.95 BMI Method:Stated Exam Exam Vital Signs Date Time Temp Pulse Resp B/P (MAP) Pulse Ox O2 Delivery O2 Flow Rate FiO2 02/18/20 03:10 65 123/66 02/18/20 03:00 65 23 108/58 92 Mechanical Ventilator 40.00 02/18/20 02:12 64 24 94 60 02/18/20 02:09 Mechanical Ventilator 40.00 02/18/20 02:00 64 19 115/65 96 Mechanical Ventilator 50.00 02/18/20 01:00 65 02/18/20 01:00 65 23 113/61 95 Mechanical Ventilator 50.00 02/18/20 00:00 65 24 116/65 95 Mechanical Ventilator 50.00 02/18/20 00:00 66 123/66 02/17/20 23:11 36.2 02/17/20 23:00 66 23 123/66 95 Mechanical Ventilator 50.00 02/17/20 22:00 65 24 119/65 94 Mechanical Ventilator 50.00 02/17/20 21:52 Mechanical Ventilator 50.00 02/17/20 21:36 63 24 98 60 02/17/20 21:00 64 24 125/69 98 Mechanical Ventilator 60.00 02/17/20 21:00 Mechanical Ventilator 60 02/17/20 20:42 66 131/75 02/17/20 20:09 36.0 66 24 131/75 96 Mechanical Ventilator 60.00 02/17/20 20:00 64 24 124/71 94 Mechanical Ventilator 85.00 02/17/20 19:00 62 24 130/76 94 Mechanical Ventilator 85.00 02/17/20 19:00 63 02/17/20 18:36 62 24 99 70 02/17/20 18:00 60 24 109/66 99 Mechanical Ventilator 85.00 02/17/20 17:30 68 90/60 02/17/20 17:08 68 24 99 100 02/17/20 17:00 65 22 90/60 98 Mechanical Ventilator 85.00 02/17/20 16:00 62 23 113/69 97 Mechanical Ventilator 85.00 02/17/20 15:48 64 108/67 02/17/20 15:47 36.6 02/17/20 15:00 64 13 108/67 99 Mechanical Ventilator 85.00 02/17/20 14:00 61 24 97/56 94 Mechanical Ventilator 85.00 02/17/20 13:00 60 24 104/63 93 Mechanical Ventilator 85.00 02/17/20 12:01 58 02/17/20 12:00 58 16 102/62 92 Mechanical Ventilator 85.00 02/17/20 11:54 Mechanical Ventilator 75.00 02/17/20 11:42 36.6 02/17/20 11:23 58 24 96 45 02/17/20 11:00 56 24 106/68 98 Mechanical Ventilator 85.00 02/17/20 10:15 Mechanical Ventilator 85.00 02/17/20 10:00 57 23 102/61 100 Mechanical Ventilator 100.00 02/17/20 09:12 Mechanical Ventilator 100.00 02/17/20 09:00 Mechanical Ventilator 100 02/17/20 09:00 56 24 99/65 100 Mechanical Ventilator 80.00 02/17/20 08:00 56 23 96/63 99 Mechanical Ventilator 80.00 02/17/20 07:42 57 24 97 100 02/17/20 07:37 57 94/58 02/17/20 07:35 37.6 02/17/20 07:00 60 02/17/20 07:00 60 24 94/60 92 Mechanical Ventilator 80.00 02/17/20 06:27 Mechanical Ventilator 100.00 02/17/20 06:00 60 23 91/57 89 Mechanical Ventilator 80.00 I & O 02/18/20 07:00 Intake Total 2990 ml Output Total 1140 ml Balance 1850 ml Height & Weight Height: 5'7.00" Weight: 220lbs. 0.0oz. 99.074895lg; 44.95 BMI Method:Stated General Appearance: Obese, Other (sedated and intubated) HEENT: PERRL/EOMI Respiratory: Stridor, Other (currently on the vent) Cardiovascular: Regular Rate, Rhythm, No Gallop, No JVD, No Murmur Capillary Refill: Less Than 3 Seconds Gastrointestinal: soft; No distended Extremity: Other (3+ significant edema going up to the hip and including the abdomen) Neurologic/Psychiatric: Other (sedated and intubated) Skin: Erythema Results Lab Laboratory Tests 02/16/20 20:30 02/17/20 02:47 02/18/20 03:15 Assessment/Plan Assessment/Plan Acute respiratory failure Influenza B positive -Tamiflu -Intubated on admission 02/15 -Reintubated 02/16 secondary to self extubation -Change vent to AC 24/400/PEEP of 15 -Decrease RR to 20 and PEEP to 12 -Repeat ABG in 1hr -Propofol and Fentanyl -CXR reviewed -Intubated 02/15 on admission - COVID is negative -Bilater dopplers - normal - Decadron -- D/C Cellulitis -Vanco, Zosyn started 02/16 -Oswald cultures pending Hypotension -Improved -Monitor ARF currently LR 100ml/hr -Decrease to 30cc/hr Hx of venous insuff CAD hx Chronic tobacco use STU CABAN DO Feb 18, 2020 05:42
--- NOTE | 2020-02-18 06:06 | NUR ---
DR CABAN AT BEDSIDE, DECREASED RR TO 20 AND DECREASED PEEP TO 12. ABG IN 1 HR.
[2020-02-18] MEDS: PIPERACILLIN/TAZOBACTAM (BULK) 4.5 GM in NS (IVPB) 100 ML IV SCH ×3 (06:13→23:28)
[2020-02-18 06:55] LABS: ABG BASE EXCESS 11.8 MMOL/L (-2.5-2.5); ABG OXYGEN SATURATION 98 % (94-100); ABG PCO2 41 MMHG (35-45); ABG PH 7.55 (7.37-7.43); ABG PO2 90 MMHG (79-93); ABG TCO2 36.7 MMOL/L (21.0-31.0); ALLENS TEST YES-POS; INSPIRED O2 40%; PATIENT TEMP 36.4; VENTILATOR YES
[2020-02-18 07:04] VITALS: BP 112/60
[2020-02-18] MEDS: RT-ALBUTEROL INHALER HFA (VENTOLIN HFA) 18 GM IH SCH ×5 (07:04→22:44)
[2020-02-18] MEDS: IPRATROPIUM INHALER (ATROVENT) 12.9 GM INH SCH ×5 (07:04→22:45)
--- NOTE | 2020-02-18 07:50 | Physical Therapy Progress Note ---
Therapy Progress Note Patient remains sedated and intubated. PT will continue to monitor patient status. THOR DIAL PT Feb 18, 2020 07:50
--- NOTE | 2020-02-18 08:07 | Occ Therapy Progress Note ---
Therapy Progress Note Pt remains intubated/ sedated. OT to continue to monitor and initiate tx when medically stable/ able to participate in skilled therapy tx. JARVIS VALDES OTR Feb 18, 2020 08:07
--- NOTE | 2020-02-18 08:18 | Diagnostic Imaging Report ---
Portable semierect AP chest at 745 hours. INDICATION: Respiratory distress. FINDINGS: In the interval since the prior exam of 02/17/2020, a vague area of increased density has developed over the left hemithorax. This could be secondary to superimposition of the breast/chest tissue. The possibility that there is an element of increased atelectasis/infiltrate involving the left lung should also be considered. The right lung remains generally clear. The heart is stable in size. The mediastinum is not widened. The osseous structures are intact. The supportive tubes and lines seen on the prior study seems similar in position. IMPRESSION: The left hemithorax is now partially opacified by a vague area of slightly increased density. Whether this is related to superimposition alone or whether there is an element of increased pneumonia/atelectasis involving the left lung is not certain. A follow-up study would be recommended for continued evaluation. Dictated by: Dictated on workstation # [id number]
[2020-02-18] MEDS: NYSTATIN CREAM (MYCOSTATIN) 30 GM TUBE TP SCH ×3 (08:24→20:03)
[2020-02-18] MEDS: OSELTAMIVIR 6 MG/ML (TAMIFLU) 60 ML BOT PEG SCH ×2 (08:24→20:03)
[2020-02-18] MEDS: ARTIFICIAL TEARS OINT (LACRI-LUBE) 3.5 GM TUBE OU SCH ×3 (08:25→20:04)
--- NOTE | 2020-02-18 09:09 | Physician Query Clarification ---
PQ-Further Specificity Admission/Discharge Admission Date: Feb 16, 2020 at 21:30 Discharge Date: Dr. Quintanilla, The medical record reflects the following clinical scenario: History/Risk Factors: Sepsis severe with septic shock Acute on chronic respiratory failure with hypoxia COPD Influenza B Clinical Findings:Admission blood gases: pH 7.31, pC02 82,p02 66, HC03 40, Total C02 42.8, 02 sats 89 dropping to 83 on 02/16 at 01:40, Base excess 13.6. Treatment: Intubation with mechanical ventilation Question: Can you further specify Acute on chronic respiratory failure with hypoxia per the clinical indicators above? Please document a response in the Progress Notes or Discharge Summary. 1. Acute on chronic respiratory failure with hypoxia due to/related to severe sepsis with septic shock. 2. Acute on chronic respiratory failure with hypoxia NOT due to/related to severe sepsis with septic shock. 3. Other, with explanation of the clinical findings. 4. Clinically undetermined, no explanation for the clinical findings. PHYSICIAN RESPONSE Can you specify per above: 1 Please remember a lack of response to the above will prompt a phone page by CDI/Coding staff. In responding to this query, please exercise your independent professional judgment. The purpose of this communication is to more accurately reflect the complexity of your patients condition. The fact that a question is asked does not imply that any particular answer is desired or expected. Thank you for your timely response to this clarification. Requestors name: Rachell Monsivais [facility] THIS PHYSICIAN QUERY FORM IS A PERMANENT PART OF THE MEDICAL RECORD RACHELL MONSIVAIS Feb 18, 2020 09:09 SAWYER QUINTANILLA MD Feb 23, 2020 15:32
[2020-02-18] MEDS: fentaNYL DRIP PRE-MIX 250 ML IV SCH ×3 (10:04→17:17)
--- NOTE | 2020-02-18 10:15 | NUR ---
T WAVE CHANGES NOTED ON PT'S BEDSIDE MONITOR, THIS RN INFORMED DR CABAN. NEW ORDERS RECEIVED TO OBTAIN EKG AND HAVE DR ANDREA REVIEW.
--- NOTE | 2020-02-18 10:31 | NUR ---
EKG OBTAINED AND GIVEN TO DR ANDREA. DR ANDREA TO TAKE PT TO CEMET[facility] TODAY.
[2020-02-18] MEDS ORDERED: HEParin (CATH LAB) 2,000 ML IV ONE (10:50)
[2020-02-18] MEDS ORDERED: LIDOCAINE 1% INJ 20 ML 20 ML VIAL ONE (10:50)
[2020-02-18 10:52] VITALS: BP 108/60
[2020-02-18] MEDS: VANCOMYCIN 2000 MG/NS 500 ML IVPB IV SCH ×2 (11:30)
--- NOTE | 2020-02-18 12:22 | Progress Note - Hospitalist ---
JENNIFER SMITH MED STUDENT 02/18/20 1222: Subjective HPI/CC On Admission Date Seen by Provider: Feb 18, 2020 Time Seen by Provider: 10:10 Subjective/Events-last exam This is a 55 year old female that presented on the for AMS, as well as abdominal swelling and leg swelling. She is currently intubated and is receiving Vancomycin with Piperacillin/Tazobactam. Nurse states that she has had to incr ease the sedation. Otherwise, pt has good O2 sats and leg redness has decreased. At the time of rounding, nurse was performing ECG. Focused Exam Respiratory: Other (Patient is currently intubated) Skin: rash (Leg redness is improving per nurse) Objective Exam Vital Signs Vital Signs Date Time Temp Pulse Resp B/P (MAP) Pulse Ox O2 Delivery O2 Flow Rate FiO2 02/18/20 12:00 53 19 104/60 94 Mechanical Ventilator 40.00 02/18/20 11:29 36.6 02/18/20 10:52 40 Capillary Refill : Less Than 3 Seconds General Appearance: No Apparent Distress Respiratory: Other (Intubated) Results/Procedures Lab Laboratory Tests 02/18/20 03:15 Patient resulted labs reviewed. Assessment/Plan Assessment and Plan Assess & Plan/Chief Complaint Continue to monitor patient. Ensure that her O2 levels are adequate and that intubation is working. Watch for any signs of poor oxygenation. Continue with abx course. Diagnosis/Problems Diagnosis/Problems (1) Influenza B Status: Acute (2) Acute renal failure (ARF) Status: Acute (3) Septic shock Status: Acute (4) Elevated brain natriuretic peptide (BNP) level Status: Acute (5) DVT prophylaxis Status: Acute (6) Acute and chronic respiratory failure with hypoxia Status: Acute (7) Swelling of lower extremity Status: Acute Clinical Quality Measures DVT/VTE Risk/Contraindication: Risk Factor Score Per Nursin RFS Level Per Nursing on Admit: 4+=Very High Supervisory-Addendum Brief Verification & Attestation Participated in pt care: history, physical Personally performed: exam, history Care discussed with: other Procedures: n/a n/a JANICE THOMPSON DO 02/19/20 0751: Subjective Subjective/Events-last exam Patient sedated and intubated Dr Hummel thinks COVID had occurred then result is resp failure Bilateral airspace disease on CXR Supervisory-Addendum Brief Verification & Attestation Participated in pt care: history, MDM, physical Personally performed: exam, history, MDM, supervision of care Care discussed with: Medical Student Procedures: n/a Results interpretation: Verified all documentation Verification and Attestation of Medical Student E/M Service A medical student performed and documented this service in my presence. I reviewed and verified all information documented by the medical student and made modifications to such information, when appropriate. I personally performed the physical exam and medical decision making. Janice Thompson, Feb 19, 2020,07:51 JENNIFER SMITH MED STUDENT Feb 18, 2020 12:22 JANICE THOMPSON DO Feb 19, 2020 07:51
--- NOTE | 2020-02-18 12:30 | Cardiology Progress Note ---
Subjective Date Seen by Provider: Feb 18, 2020 Time Seen by Provider: 12:27 Subjective/Events-last exam Patient is sedated ventilatory dependent Review of Systems General: Other (unable to provide review of systems) Objective-Cardiology Exam Last Set of Vital Signs Vital Signs 02/18/20 02/18/20 02/18/20 10:52 11:29 12:00 Temp 36.6 Pulse 53 Resp 19 B/P (MAP) 104/60 Pulse Ox 94 O2 Delivery Mechanical Ventilator O2 Flow Rate 40.00 FiO2 40 Capillary Refill : Less Than 3 Seconds I&O Intake and Output 02/18/20 00:00 Intake Total 2990 ml Output Total 1785 ml Balance 1205 ml Intake Oral 0 ml IV Total 2960 ml Other 30 ml Output Urine Total 1585 ml Gastric Drainage Total 200 ml General: Other (sedated and intubated) HEENT: Atraumatic, PERRLA Lungs: Normal Air Movement, Other (bilateral rhonchi) Heart: Regular Rate Abdomen: Normal Bowel Sounds Extremities: Other (peripheral edema) Neuro: Other (sedated and intubated) Psych/Mental Status: Other (sedated and intubated) Results Lab Laboratory Tests 02/18/20 03:15 A/P-Cardiology Admission Diagnosis Acute respiratory failure Non-ST elevation myocardial infarction Congestive heart failure Acute renal failure Assessment/Plan Acute respiratory failure, ventilator dependent, managed by Dr. Hummel Influenza B infection, managed by Dr. Hummel Congestive heart failure, significant edema. Last echo was done in July 2019 showing normal LV size and function, had significant elevation in BNP, has been maintained on Lasix as an outpatient. I will resume Lasix and monitor tolerance and response EKG changes with T-wave inversion in the anterior lateral lead, mild elevation i n troponin, known to have history of coronary artery disease with total occlusion of the LAD, had ST elevation myocardial infarction in 2009. She had a balloon pump and transferred to [facility], Dr. Olivares has placed a stent to her according to the daughter and did not have any further follow-up since then. I am planning to proceed with cardiac catheterization, I visited with the daughter in length, explained the procedure and we discussed the risks versus benefit. Chronic pedal edema which has been worsening. Has been maintained on Lasix. Will give additional dose and monitor Acute on chronic renal insufficiency, continue to monitor Tobaccoism Clinical Quality Measures DVT/VTE Risk/Contraindication: Risk Factor Score Per Nursin RFS Level Per Nursing on Admit: 4+=Very High JOYCE ANDREA MD Feb 18, 2020 12:30
--- NOTE | 2020-02-18 13:08 | NUR ---
pt left for labor crew supervisor w/ staff and rt.
[2020-02-18] MEDS: ENOXAPARIN 300 MG/3 ML (LOVENOX) MULTI-DOSE VIAL SQ SCH ×2 (13:10→23:33)
--- NOTE | 2020-02-18 13:18 | NUR ---
During care rounds, it was discussed to initiate TF. Would recommend Pulmocare 1.5 kcal at rate of 15ml/hr with flushes of 25ml water q4h. Will continue to follow and reassess as pt needs, intake, and status change. Ivon Santana, MS RD LD
--- NOTE | 2020-02-18 13:28 | Physical Therapy Progress Note ---
Therapy Progress Note Performed PROM to patients upper and lower extremities. RUSTY FELTON PT Feb 18, 2020 13:28
--- NOTE | 2020-02-18 13:59 | Cardiac Cath Report ---
Cardiac Cath Report Physician (s)/Vacuum System Tester (s) Physician JOYCE ANDREA MD Pre-Procedure Diagnosis Pre-Procedure Diagnosis: Gastritis, Screening colonoscopy Post-Procedure Note Procedure Start Date: Feb 18, 2020 Name of Procedure: Left heart catheterization Left ventriculogram Findings/Procedure Note PROCEDURE NOTE: 55-year-old lady with history of coronary artery disease admitted with acute respiratory failure, progress to intubation. Had mild elevation in troponin level and elevation in BNP with peripheral edema. Today she had new EKG changes with diffuse T-wave inversion. After explaining the procedure to the daughter, all pros and cons were explained, all questions were answered. The daughter provided the consent for the procedure and then she was placed on the cardiac catheterization laboratory. Groin was prepped SL fashion local anesthesia was used. Sheath placed in the right femoral artery. Jesse right and left catheter were used to access the coronary system. Pigtail was used to access the left ventricular cavity. Left ventriculogram was done At the end of the procedure the sheath was removed. Closure device was deployed FINDINGS: Hemodynamics LV 107/21, end-diastolic pressure 21 Aorta 107/58 mean of 76 ANATOMY: Left Main is free of obstructive disease Left Anterior Descending has mild disease nonobstructive disease Left Circumflex has patent stent in the proximal portion otherwise nonobstructive disease Right Coronory Artery is dominant artery with no obstructive disease LV Gram is dilated with diffuse left ventricular hypokinesia ejection fraction 25 percent CONCLUSION: 1. Patent stent in the proximal circumflex artery otherwise nonobstructive disease 2. Dilated left ventricle with diffuse left ventricular hypokinesia EF 25 percent DISCUSSION AND RECOMMENDATION: Patient has severe nonischemic cardiomyopathy, probably secondary to hypoxemia and respiratory failure, I will start on diuretics and monitor tolerance and response Anesthesia Type: Conscious Sedation Estimated blood loss (mL): 15 ml Contrast Amount: 19 ml Total Radiation Dose: 361 mGy Post-Procedure Diagnosis Post-operative diagnosis: Acute respiratory failure Acute congestive heart failure left ventricular systolic dysfunction, nonischemic cardiomyopathy Hypotensive shock Pneumonia JOYCE ANDREA MD Feb 18, 2020 13:59
--- NOTE | 2020-02-18 14:00 | NUR ---
PT BACK TO ROOM FROM MEDICAL MICROBIOLOGIST W/ STAFF AND RT.
[2020-02-18 14:11] VITALS: BP 118/74
[2020-02-18] MEDS: NS IV 1000 ML 1,000 ML IV SCH ×2 (14:14→23:28)
--- NOTE | 2020-02-18 15:06 | NUR ---
PT UNABLE TO PRONE TODAY R/T RIGHT GROIN HEART CATH SITE.
[2020-02-18] MEDS: FUROSEMIDE 40 MG/4 ML INJ (LASIX) IVP SCH (16:08)
--- NOTE | 2020-02-18 16:09 | NUR ---
TF STARTED, SEE ORDER FOR DETAILS.
[2020-02-18 18:35] VITALS: BP 101/63
[2020-02-18 22:45] VITALS: BP 106/63
[2020-02-19] MEDS: LACTATED RINGERS 1,000 ML IV SCH (01:04)
[2020-02-19] MEDS: fentaNYL DRIP PRE-MIX 250 ML IV SCH ×3 (02:04→18:01)
[2020-02-19] MEDS: RT-ALBUTEROL INHALER HFA (VENTOLIN HFA) 18 GM IH SCH ×6 (03:10→22:39)
[2020-02-19 03:11] VITALS: BP 112/64
[2020-02-19] MEDS: IPRATROPIUM INHALER (ATROVENT) 12.9 GM INH SCH ×6 (03:11→22:39)
[2020-02-19 03:59] LABS: BASOPHILS % (AUTO) 0 % (0-10); EOSINOPHILS % (AUTO) 0 % (0-10); HEMATOCRIT 41 % (35-52); HEMOGLOBIN 12.3 g/dL (11.5-16.0); LYMPHOCYTES # (AUTO) 1.2 10^3/uL (1.0-4.0); LYMPHOCYTES % (AUTO) 10 % (12-44); MEAN CORPUSCULAR HEMOGLOBIN 25 pg (25-34); MEAN CORPUSCULAR HGB CONC 30 g/dL (32-36); MEAN CORPUSCULAR VOLUME 83 fL (80-99); MEAN PLATELET VOLUME 9.9 fL (9.0-12.2); MONOCYTES # (AUTO) 0.8 10^3/uL (0.0-1.0); MONOCYTES % (AUTO) 7 % (0-12); NEUTROPHILS # (AUTO) 9.8 10^3/uL (1.8-7.8); NEUTROPHILS % (AUTO) 83 % (42-75); PLATELET COUNT 211 10^3/uL (130-400); WHITE BLOOD COUNT 11.9 10^3/uL (4.3-11.0)
[2020-02-19 04:21] LABS: POTASSIUM 3.8 MMOL/L (3.6-5.0)
[2020-02-19 04:23] LABS: CALCIUM 8.1 MG/DL (8.5-10.1)
[2020-02-19 04:24] LABS: ABG BASE EXCESS 11.9 MMOL/L (-2.5-2.5); ABG OXYGEN SATURATION 95 % (94-100); ABG PCO2 42 MMHG (35-45); ABG PH 7.53 (7.37-7.43); ABG PO2 75 MMHG (79-93); ABG TCO2 37.2 MMOL/L (21.0-31.0)
[2020-02-19 04:27] LABS: ALLENS TEST YES-POS; INSPIRED O2 35%; VENTILATOR YES
[2020-02-19 04:27] LABS: CREATININE SERUM 1.52 MG/DL (0.60-1.30)
[2020-02-19 04:28] LABS: PATIENT TEMP 35.9
[2020-02-19 04:29] LABS: MAGNESIUM 2.1 MG/DL (1.6-2.4)
[2020-02-19] MEDS: PROPOFOL DRIP (ICU) 100 ML IV SCH ×4 (05:36→20:32)
[2020-02-19] MEDS: POTASSIUM CL 10MEQ/50ML IVPB 50 ML IV SCH ×3 (05:37→10:01)
[2020-02-19] MEDS: KCL 20 MEQ TAB (K-DUR) PO SCH (05:37)
[2020-02-19] MEDS: MAGNESIUM 1 GM/100 ML IVPB 100 ML IV SCH (05:37)
[2020-02-19] MEDS: inSUlin ASPART (NovoLOG) 1 UNIT/0.01 ML (CHARGE PER UNIT) SC SCH ×3 (05:38→17:48)
[2020-02-19] MEDS: PIPERACILLIN/TAZOBACTAM (BULK) 4.5 GM in NS (IVPB) 100 ML IV SCH ×3 (06:42→22:49)
[2020-02-19] MEDS: FUROSEMIDE 40 MG/4 ML INJ (LASIX) IVP SCH ×2 (06:43→16:04)
--- NOTE | 2020-02-19 07:07 | Physical Therapy Progress Note ---
Therapy Progress Note Patient remains sedated and intubated. Patient is also post heart cath. PT will continue to follow patient status. THOR DIAL PT Feb 19, 2020 07:07
[2020-02-19 08:04] VITALS: BP 105/60
--- NOTE | 2020-02-19 08:08 | Pulmonary Progress Note ---
Subjective Time Seen by a Provider: 08:02 Subjective/Events-last exam Sedated on vent. Sepsis Event Evaluation Height, Weight, BMI Height: 5'7.00" Weight: 220lbs. 0.0oz. 99.642485kx; 44.95 BMI Method:Stated Exam Exam Vital Signs Date Time Temp Pulse Resp B/P (MAP) Pulse Ox O2 Delivery O2 Flow Rate FiO2 02/19/20 06:02 36.7 Mechanical Ventilator 35.00 02/19/20 06:00 64 20 119/71 94 Mechanical Ventilator 35.00 02/19/20 05:36 62 02/19/20 05:36 62 02/19/20 05:00 57 19 117/70 95 Mechanical Ventilator 35.00 02/19/20 04:00 58 20 105/60 95 Mechanical Ventilator 35.00 02/19/20 03:11 61 20 95 35 02/19/20 03:00 58 19 126/76 95 Mechanical Ventilator 35.00 02/19/20 02:00 61 20 120/73 96 Mechanical Ventilator 35.00 02/19/20 01:00 64 19 128/74 96 Mechanical Ventilator 35.00 02/19/20 01:00 70 02/19/20 00:30 36.1 02/19/20 00:00 62 19 134/79 96 Mechanical Ventilator 35.00 02/18/20 23:52 94 Mechanical Ventilator 35.00 02/18/20 23:34 62 02/18/20 23:33 62 02/18/20 23:00 55 20 115/69 94 Mechanical Ventilator 35.00 02/18/20 22:50 35 02/18/20 22:50 Mechanical Ventilator 35.00 02/18/20 22:45 51 20 96 40 02/18/20 22:00 50 13 108/65 94 Mechanical Ventilator 40.00 02/18/20 21:00 50 17 111/66 94 Mechanical Ventilator 40.00 02/18/20 20:00 49 21 94/56 93 Mechanical Ventilator 40.00 02/18/20 20:00 93 Mechanical Ventilator 40.00 02/18/20 19:45 93 Mechanical Ventilator 40.00 02/18/20 19:40 35.8 Mechanical Ventilator 40.00 02/18/20 19:00 50 02/18/20 19:00 49 19 104/64 93 Mechanical Ventilator 40.00 02/18/20 18:35 48 20 95 40 02/18/20 18:00 48 16 97/62 95 Mechanical Ventilator 40.00 02/18/20 17:16 48 110/67 02/18/20 17:16 48 110/67 02/18/20 17:00 48 19 110/67 94 Mechanical Ventilator 40.00 02/18/20 16:00 92 25 107/65 99 Mechanical Ventilator 40.00 02/18/20 16:00 35.8 02/18/20 15:16 35.4 02/18/20 15:00 96 25 109/64 97 Mechanical Ventilator 40.00 02/18/20 14:15 52 11 108/67 96 Mechanical Ventilator 40.00 02/18/20 14:11 53 20 96 40 02/18/20 14:00 54 118/74 Mechanical Ventilator 40.00 02/18/20 12:49 53 02/18/20 12:00 53 19 104/60 94 Mechanical Ventilator 40.00 02/18/20 11:29 36.6 02/18/20 11:00 53 20 112/66 94 Mechanical Ventilator 40.00 02/18/20 10:52 53 20 95 40 02/18/20 10:00 53 19 101/54 95 Mechanical Ventilator 40.00 02/18/20 09:00 56 19 99/54 96 Mechanical Ventilator 40.00 02/18/20 09:00 Mechanical Ventilator 40 02/18/20 08:33 61 109/69 02/18/20 08:33 61 109/69 02/18/20 08:29 36.1 I & O 02/19/20 07:00 Intake Total 1857 ml Output Total 3050 ml Balance -1193 ml Height & Weight Height: 5'7.00" Weight: 220lbs. 0.0oz. 99.600861oo; 44.95 BMI Method:Stated General Appearance: Other (sedated on vent. ) HEENT: PERRL/EOMI Respiratory: Other (Intubated) Cardiovascular: Regular Rate, Rhythm, No Gallop, No JVD, No Murmur Capillary Refill: Less Than 3 Seconds Gastrointestinal: soft; No distended Extremity: Other (3+ significant edema going up to the hip and including the abdomen) Neurologic/Psychiatric: Other (sedated and intubated) Skin: Erythema Results Lab Laboratory Tests 02/18/20 03:15 02/19/20 03:40 Assessment/Plan Assessment/Plan Acute respiratory failure Influenza B positive with ARDS Pa02/Fi02 214 now -D/C proning -Tamiflu -Lasix BID 40mg -Intubated on admission 02/15 -Reintubated 02/16 secondary to self extubation -Change vent to AC 24/400/PEEP of 15 -Decrease RR to 20 and PEEP to 12 -Repeat ABG in 1hr -Propofol and Fentanyl -CXR reviewed -Intubated 02/15 on admission - COVID is negative -Bilater dopplers - normal - Decadron -- D/C Cellulitis -Vanco, Zosyn started 02/16 -Oswald cultures pending Hypotension -Improved -Monitor ARF with hyperphos -Start PhosLo -Monitor Hx of venous insuff CAD hx Chronic tobacco use STU CABAN DO Feb 19, 2020 08:08
--- NOTE | 2020-02-19 08:20 | Cardiology Progress Note ---
Subjective Date Seen by Provider: Feb 19, 2020 Time Seen by Provider: 08:16 Subjective/Events-last exam Patient is sedated and intubated Review of Systems General: Other (unable to provide review of systems) Objective-Cardiology Exam Last Set of Vital Signs Vital Signs 02/19/20 02/19/20 02/19/20 06:00 06:02 08:04 Temp 36.7 Pulse 62 Resp 20 B/P (MAP) 119/71 Pulse Ox 95 O2 Delivery Mechanical Ventilator O2 Flow Rate 35.00 FiO2 35 Capillary Refill : Less Than 3 Seconds I&O Intake and Output 02/19/20 00:00 Intake Total 1687 ml Output Total 3140 ml Balance -1453 ml Intake Oral 25 ml IV Total 1560 ml Tube Feeding 77 ml Other 25 ml Output Urine Total 2590 ml Gastric Drainage Total 550 ml General: Other (sedated and intubated) HEENT: Atraumatic, PERRLA Lungs: Normal Air Movement, Other (bilateral rhonchi) Heart: Regular Rate, Normal S1, Normal S2 Abdomen: Normal Bowel Sounds Extremities: Other (peripheral edema) Neuro: Other (sedated and intubated) Psych/Mental Status: Other (sedated and intubated) Results Lab Laboratory Tests 02/19/20 03:40 A/P-Cardiology Admission Diagnosis Acute respiratory failure Non-ST elevation myocardial infarction Congestive heart failure Acute renal failure Assessment/Plan Acute respiratory failure, ventilator dependent, managed by Dr. Hummel Influenza B infection, managed by Dr. Hummel Congestive heart failure, acute left ventricular systolic dysfunction, nonischemic cardiomyopathy, probably stunned myocardium due to hypoxemia. Continue with diuretics for now. I will start beta blockers and planning to add SERGIO inhibitor as tolerated Coronary artery disease, history of myocardial infarction in 2009 transferred to [facility] and had a stent to the circumflex artery. Repeat cardiac catheterization was carried out on February 18, 2020 showing patent stent in the circumflex artery otherwise mild coronary artery disease, obstructive disease with severe cardiomyopathy and ejection fraction 25 percent and elevated left ventricular end-diastolic pressure Chronic pedal edema which has been worsening. Continue on diuresis and monitor Acute on chronic renal insufficiency, continue to monitor Tobaccoism Clinical Quality Measures DVT/VTE Risk/Contraindication: Risk Factor Score Per Nursin RFS Level Per Nursing on Admit: 4+=Very High JOYCE ANDREA MD Feb 19, 2020 08:20
[2020-02-19] MEDS: OSELTAMIVIR 6 MG/ML (TAMIFLU) 60 ML BOT PEG SCH ×2 (08:36→20:30)
[2020-02-19] MEDS: NYSTATIN CREAM (MYCOSTATIN) 30 GM TUBE TP SCH ×3 (08:37→20:01)
[2020-02-19] MEDS: ARTIFICIAL TEARS OINT (LACRI-LUBE) 3.5 GM TUBE OU SCH ×3 (08:37→20:01)
[2020-02-19] MEDS: meTOprolol TARTRATE 25 MG (LOPRESSOR) TABLET PO SCH ×2 (08:43→20:01)
[2020-02-19] MEDS ORDERED: TROUGH ORDER-PHARMACY XX ONE (10:00)
[2020-02-19] MEDS: NS IV 1000 ML 1,000 ML IV SCH (10:01)
[2020-02-19 10:55] VITALS: BP 122/68
[2020-02-19] MEDS: VANCOMYCIN 2000 MG/NS 500 ML IVPB IV SCH ×2 (10:58)
--- NOTE | 2020-02-19 11:04 | NUR ---
Vancomycin - 02/18 trough 23.7, will hold current dose. Repeat trough 02/18 @ 1800. If trough is less than 20, will start Vancomycin 1750mg every 24 hours.
[2020-02-19] MEDS: ENOXAPARIN 300 MG/3 ML (LOVENOX) MULTI-DOSE VIAL SQ SCH (13:57)
[2020-02-19] MEDS: CALCIUM ACETATE 667 MG CAP (PHOSLO) PO SCH ×2 (13:57→17:48)
[2020-02-19 14:29] VITALS: BP 123/70
--- NOTE | 2020-02-19 15:14 | NUR ---
LATE ENTRY: [address] CABAN NO LONGER NEED TO PLACE PT A POTENTIAL COVID ISOLATION, ONLY FLU ISOLATION
--- NOTE | 2020-02-19 16:35 | NUR ---
PT REASSESSED AT THIS TIME, PT CONTINUES TO AWAKEN TO VERBAL STIMULI, IS ABLE TO FOLLOW COMMANDS AT TIMES. NEW CENTRAL LINE DRESSING APPLIED, SUCTION CANISTERS CHANGED, TUBE FEEDING KIT CHANGED, PT REMAINS ON 40% FI02 ON VENTILATOR WITH SA02 NOTED AT 96%. LUNG SOUNDS REMAIN DIMINISHED AND COURSE, WILL CONTINUE TO MONITOR.
[2020-02-19] MEDS ORDERED: TROUGH ORDER-PHARMACY XX NR (18:00)
[2020-02-19 19:25] VITALS: BP 125/80
[2020-02-19] MEDS ORDERED: VANCOMYCIN 1,750 MG/NS 500 ML IVPB IV SCH ×2 (20:00)
[2020-02-19 22:39] VITALS: BP 109/63
[2020-02-20] MEDS: inSUlin ASPART (NovoLOG) 1 UNIT/0.01 ML (CHARGE PER UNIT) SC SCH ×5 (00:46→23:44)
[2020-02-20] MEDS: ENOXAPARIN 300 MG/3 ML (LOVENOX) MULTI-DOSE VIAL SQ SCH ×3 (00:46→23:45)
[2020-02-20] MEDS: fentaNYL DRIP PRE-MIX 250 ML IV SCH ×3 (01:05→18:07)
[2020-02-20 02:43] VITALS: BP 109/72
[2020-02-20] MEDS: IPRATROPIUM INHALER (ATROVENT) 12.9 GM INH SCH ×6 (02:43→22:42)
[2020-02-20] MEDS: RT-ALBUTEROL INHALER HFA (VENTOLIN HFA) 18 GM IH SCH ×6 (02:43→22:42)
[2020-02-20 03:04] LABS: ABG BASE EXCESS 12.2 MMOL/L (-2.5-2.5); ABG OXYGEN SATURATION 97 % (94-100); ABG PCO2 49 MMHG (35-45); ABG PH 7.48 (7.37-7.43); ABG PO2 93 MMHG (79-93)
[2020-02-20 03:05] LABS: ALLENS TEST ART LINE
[2020-02-20 03:06] LABS: INSPIRED O2 35%; VENTILATOR YES
[2020-02-20 03:11] LABS: BASOPHILS % (AUTO) 0 % (0-10); EOSINOPHILS % (AUTO) 0 % (0-10); HEMATOCRIT 40 % (35-52); HEMOGLOBIN 12.1 g/dL (11.5-16.0); LYMPHOCYTES # (AUTO) 1.3 10^3/uL (1.0-4.0); LYMPHOCYTES % (AUTO) 14 % (12-44); MEAN CORPUSCULAR HEMOGLOBIN 25 pg (25-34); MEAN CORPUSCULAR HGB CONC 30 g/dL (32-36); MEAN CORPUSCULAR VOLUME 84 fL (80-99); MONOCYTES # (AUTO) 0.7 10^3/uL (0.0-1.0); MONOCYTES % (AUTO) 8 % (0-12); NEUTROPHILS # (AUTO) 6.8 10^3/uL (1.8-7.8); NEUTROPHILS % (AUTO) 77 % (42-75); PLATELET COUNT 188 10^3/uL (130-400); WHITE BLOOD COUNT 8.9 10^3/uL (4.3-11.0)
[2020-02-20 03:24] LABS: POTASSIUM 3.2 MMOL/L (3.6-5.0)
[2020-02-20 03:26] LABS: CALCIUM 8.2 MG/DL (8.5-10.1)
[2020-02-20] MEDS: KCL 20 MEQ TAB (K-DUR) PO SCH (03:29)
[2020-02-20] MEDS: POTASSIUM CL 10MEQ/50ML IVPB 50 ML IV SCH ×5 (03:29→06:44)
[2020-02-20 03:30] LABS: CREATININE SERUM 1.42 MG/DL (0.60-1.30); PHOSPHORUS 3.9 MG/DL (2.3-4.7)
[2020-02-20 03:32] LABS: MAGNESIUM 1.8 MG/DL (1.6-2.4)
[2020-02-20] MEDS: NS IV 1000 ML 1,000 ML IV SCH ×3 (03:47→15:51)
[2020-02-20] MEDS: MAGNESIUM 1 GM/100 ML IVPB 100 ML IV SCH (04:17)
--- NOTE | 2020-02-20 05:45 | Pulmonary Progress Note ---
Subjective Time Seen by a Provider: 05:40 Sepsis Event Evaluation Height, Weight, BMI Height: 5'7.00" Weight: 220lbs. 0.0oz. 99.733021pr; 44.95 BMI Method:Stated Exam Exam Vital Signs Date Time Temp Pulse Resp B/P (MAP) Pulse Ox O2 Delivery O2 Flow Rate FiO2 02/20/20 04:00 37.0 02/20/20 03:00 63 20 113/63 94 Mechanical Ventilator 35.00 02/20/20 02:43 70 20 94 35 02/20/20 02:00 60 26 119/71 95 Mechanical Ventilator 35.00 02/20/20 01:00 62 20 112/70 93 Mechanical Ventilator 35.00 02/20/20 01:00 61 02/20/20 00:51 55 99/57 02/20/20 00:50 55 99/57 02/20/20 00:00 36.9 02/20/20 00:00 55 20 99/57 94 Mechanical Ventilator 35.00 02/19/20 23:00 57 20 108/63 94 Mechanical Ventilator 35.00 02/19/20 22:39 59 20 94 35 02/19/20 22:00 54 19 123/81 95 Mechanical Ventilator 35.00 02/19/20 21:00 97 Mechanical Ventilator 40.00 02/19/20 21:00 56 20 113/70 96 Mechanical Ventilator 35.00 02/19/20 20:32 60 127/74 02/19/20 20:31 60 127/74 02/19/20 20:00 56 28 113/66 95 Mechanical Ventilator 35.00 02/19/20 20:00 36.8 02/19/20 19:25 61 20 93 40 02/19/20 19:00 60 02/19/20 19:00 62 28 125/80 95 Mechanical Ventilator 35.00 02/19/20 18:00 60 19 115/66 95 Mechanical Ventilator 35.00 02/19/20 17:00 57 25 115/72 96 Mechanical Ventilator 35.00 02/19/20 16:10 36.8 02/19/20 16:00 66 20 117/71 95 Mechanical Ventilator 35.00 02/19/20 15:00 57 19 107/58 93 Mechanical Ventilator 35.00 02/19/20 14:29 63 20 94 40 02/19/20 14:00 58 10 133/75 96 Mechanical Ventilator 35.00 02/19/20 13:00 58 02/19/20 13:00 57 15 102/56 96 Mechanical Ventilator 35.00 02/19/20 12:00 57 19 104/57 96 Mechanical Ventilator 35.00 02/19/20 11:28 36.0 02/19/20 11:17 62 121/70 02/19/20 11:00 63 19 121/70 95 Mechanical Ventilator 35.00 02/19/20 10:55 64 20 95 40 02/19/20 10:00 62 20 111/64 96 Mechanical Ventilator 35.00 02/19/20 09:00 66 19 126/72 95 Mechanical Ventilator 35.00 02/19/20 09:00 95 Mechanical Ventilator 40.00 02/19/20 08:38 35.8 02/19/20 08:04 62 20 95 35 02/19/20 08:00 60 19 109/64 95 Mechanical Ventilator 35.00 02/19/20 07:00 61 02/19/20 07:00 63 20 114/68 95 Mechanical Ventilator 35.00 02/19/20 06:02 36.7 Mechanical Ventilator 35.00 02/19/20 06:00 64 20 119/71 94 Mechanical Ventilator 35.00 I & O 02/20/20 07:00 Intake Total 525 ml Output Total 4200 ml Balance -3675 ml Height & Weight Height: 5'7.00" Weight: 220lbs. 0.0oz. 99.320619js; 44.95 BMI Method:Stated General Appearance: Other (sedated on vent. ) HEENT: PERRL/EOMI Respiratory: Other (Intubated) Cardiovascular: Regular Rate, Rhythm, No Gallop, No JVD, No Murmur Capillary Refill: Less Than 3 Seconds Gastrointestinal: soft; No distended Extremity: Other (3+ significant edema going up to the hip and including the abdomen) Neurologic/Psychiatric: Other (sedated and intubated) Skin: Erythema Results Lab Laboratory Tests 02/19/20 03:40 02/20/20 03:01 Assessment/Plan Assessment/Plan Acute respiratory failure Influenza B positive with ARDS Pa02/Fi02 214 now -D/C proning -Tamiflu -Lasix BID 40mg -Intubated on admission 02/15 -Reintubated 02/16 secondary to self extubation -Change vent to AC 24/400/PEEP of 15 -Decrease RR to 16 and PEEP to 8 -Repeat ABG in 1hr -Propofol and Fentanyl -CXR reviewed -Intubated 02/15 on admission - COVID is negative -Bilater dopplers - normal - Decadron -- D/C Pneumonia with probable pseudomonus and strep -Continue Zosyn Cellulitis -improved -Vanco, Zosyn started 02/16 -D/C Vanco 02/19 -Oswald cultures pending Hypotension -Improved -Monitor ARF with hyperphos -Start PhosLo -Monitor Hx of venous insuff CAD hx Chronic tobacco use STU CABAN DO Feb 20, 2020 05:45
[2020-02-20] MEDS: PROPOFOL DRIP (ICU) 100 ML IV SCH ×6 (05:58→21:35)
[2020-02-20] MEDS: FUROSEMIDE 40 MG/4 ML INJ (LASIX) IVP SCH ×2 (06:43→18:07)
[2020-02-20] MEDS: LACTATED RINGERS 1,000 ML IV SCH (06:44)
[2020-02-20] MEDS: PIPERACILLIN/TAZOBACTAM (BULK) 4.5 GM in NS (IVPB) 100 ML IV SCH ×3 (06:44→23:44)
[2020-02-20 07:08] VITALS: BP 110/62
--- NOTE | 2020-02-20 08:04 | Diagnostic Imaging Report ---
INDICATION: Influenza. EXAMINATION: Chest 02/20/2020. COMPARISON: 02/18/2020 FINDINGS: The heart is prominent. Pulmonary vasculature is minimally congested. Improving aeration of the left lung is noted. Right lung unremarkable. There is a small left effusion. The ET tube, right jugular line and feeding tube grossly stable. IMPRESSION: 1. Improving aeration of the left lung with a tiny left pleural effusion noted. Dictated by: Dictated on workstation # [id number]
[2020-02-20] MEDS: CALCIUM ACETATE 667 MG CAP (PHOSLO) PO SCH ×3 (08:13→18:07)
[2020-02-20] MEDS: ARTIFICIAL TEARS OINT (LACRI-LUBE) 3.5 GM TUBE OU SCH ×3 (08:13→20:41)
[2020-02-20] MEDS: OSELTAMIVIR 6 MG/ML (TAMIFLU) 60 ML BOT PEG SCH ×2 (08:13→20:36)
[2020-02-20] MEDS: meTOprolol TARTRATE 25 MG (LOPRESSOR) TABLET PO SCH ×2 (08:14→20:38)
[2020-02-20] MEDS: NYSTATIN CREAM (MYCOSTATIN) 30 GM TUBE TP SCH ×3 (08:14→20:41)
--- NOTE | 2020-02-20 08:51 | Cardiology Progress Note ---
Subjective Date Seen by Provider: Feb 20, 2020 Time Seen by Provider: 08:50 Subjective/Events-last exam Patient is sedated and intubated Review of Systems General: Other (unable to provide ROS) Objective-Cardiology Exam Last Set of Vital Signs Vital Signs 02/20/20 02/20/20 02/20/20 02/20/20 07:08 07:55 08:00 08:29 Temp 36.3 Pulse 61 Resp 16 B/P (MAP) 108/62 Pulse Ox 95 O2 Delivery Mechanical Ventilator O2 Flow Rate 35.00 FiO2 35 Capillary Refill : Less Than 3 Seconds I&O Intake and Output 02/20/20 00:00 Intake Total 810 ml Output Total 4250 ml Balance -3440 ml Intake Oral 0 ml IV Total 300 ml Tube Feeding 360 ml Other 150 ml Output Urine Total 4250 ml General: Other (sedated and intubated) HEENT: Atraumatic, PERRLA Lungs: Normal Air Movement, Other (bilateral rhonchi) Heart: Regular Rate, Normal S1, Normal S2 Abdomen: Normal Bowel Sounds Extremities: Other (peripheral edema) Neuro: Other (sedated and intubated) Psych/Mental Status: Other (sedated and intubated) Results Lab Laboratory Tests 02/20/20 03:01 A/P-Cardiology Admission Diagnosis Acute respiratory failure Non-ST elevation myocardial infarction Congestive heart failure Acute renal failure Assessment/Plan Acute respiratory failure, ventilator dependent, managed by Dr. Hummel Influenza B infection, managed by Dr. Hummel Congestive heart failure, acute left ventricular systolic dysfunction, nonischemic cardiomyopathy, probably stunned myocardium due to hypoxemia. Responding well to diuretics, started on metoprolol 12.5 twice a day yesterday and starting on losartan 25 mg daily today, continue to monitor urine output, blood pressure and renal function Coronary artery disease, history of myocardial infarction in 2009 transferred to [facility] and had a stent to the circumflex artery. Repeat cardiac catheterization was carried out on February 18, 2020 showing patent stent in the circumflex artery otherwise mild coronary artery disease, obstructive disease with severe cardiomyopathy and ejection fraction 25 percent and elevated left ventricular end-diastolic pressure Chronic pedal edema which has been worsening. Continue on diuresis and monitor Acute on chronic renal insufficiency, continue to monitor Tobaccoism Clinical Quality Measures DVT/VTE Risk/Contraindication: Risk Factor Score Per Nursin RFS Level Per Nursing on Admit: 4+=Very High JOYCE ANDREA MD Feb 20, 2020 08:51
[2020-02-20 09:50] LABS: ABG BASE EXCESS 12.4 MMOL/L (-2.5-2.5); ABG OXYGEN SATURATION 97 % (94-100); ABG PCO2 56 MMHG (35-45); ABG PH 7.44 (7.37-7.43); ABG PO2 88 MMHG (79-93); ABG TCO2 39.1 MMOL/L (21.0-31.0)
[2020-02-20 09:53] LABS: ALLENS TEST POS; INSPIRED O2 45%; PATIENT TEMP 36.3; VENTILATOR YES
[2020-02-20] MEDS: LOSARTAN 25 MG (COZAAR) TAB PO SCH (10:25)
[2020-02-20 10:34] VITALS: BP 97/54
--- NOTE | 2020-02-20 11:38 | NUR ---
UPDATED PATIENTS DAUGHTER AFTER VERIFYING OF PASSWORD. ALL QUESTIONS ANSWERED. SHE IS APPRECIATIVE OF CARE.
[2020-02-20 14:56] VITALS: BP 106/61
[2020-02-20 19:07] VITALS: BP 105/60
[2020-02-20 22:43] VITALS: BP 97/54
[2020-02-21] MEDS: RT-ALBUTEROL INHALER HFA (VENTOLIN HFA) 18 GM IH SCH ×6 (02:54→22:23)
[2020-02-21] MEDS: IPRATROPIUM INHALER (ATROVENT) 12.9 GM INH SCH ×6 (02:54→22:23)
[2020-02-21 02:55] VITALS: BP 104/64
[2020-02-21] MEDS: fentaNYL DRIP PRE-MIX 250 ML IV SCH ×3 (03:05→15:54)
[2020-02-21 03:09] LABS: ABG BASE EXCESS 12.1 MMOL/L (-2.5-2.5); ABG OXYGEN SATURATION 98 % (94-100); ABG PCO2 52 MMHG (35-45); ABG PH 7.46 (7.37-7.43); ABG PO2 96 MMHG (79-93); ABG TCO2 38.1 MMOL/L (21.0-31.0)
[2020-02-21 03:11] LABS: BASOPHILS % (AUTO) 0 % (0-10); EOSINOPHILS # (AUTO) 0.1 10^3/uL (0.0-0.3); EOSINOPHILS % (AUTO) 1 % (0-10); HEMATOCRIT 41 % (35-52); HEMOGLOBIN 11.8 g/dL (11.5-16.0); LYMPHOCYTES # (AUTO) 1.4 10^3/uL (1.0-4.0); LYMPHOCYTES % (AUTO) 16 % (12-44); MEAN CORPUSCULAR HEMOGLOBIN 25 pg (25-34); MEAN CORPUSCULAR HGB CONC 29 g/dL (32-36); MEAN CORPUSCULAR VOLUME 86 fL (80-99); MONOCYTES # (AUTO) 0.8 10^3/uL (0.0-1.0); MONOCYTES % (AUTO) 10 % (0-12); NEUTROPHILS # (AUTO) 6.5 10^3/uL (1.8-7.8); NEUTROPHILS % (AUTO) 73 % (42-75); PLATELET COUNT 205 10^3/uL (130-400); WHITE BLOOD COUNT 8.9 10^3/uL (4.3-11.0)
[2020-02-21 03:12] LABS: ALLENS TEST YES-POS; INSPIRED O2 45%; PATIENT TEMP 37.3; VENTILATOR YES
[2020-02-21 03:23] LABS: POTASSIUM 3.5 MMOL/L (3.6-5.0)
[2020-02-21 03:24] LABS: CALCIUM 8.2 MG/DL (8.5-10.1)
[2020-02-21 03:28] LABS: CREATININE SERUM 1.28 MG/DL (0.60-1.30); PHOSPHORUS 3.3 MG/DL (2.3-4.7)
[2020-02-21 03:30] LABS: MAGNESIUM 1.6 MG/DL (1.6-2.4)
[2020-02-21] MEDS: MAGNESIUM 1 GM/100 ML IVPB 100 ML IV SCH ×3 (03:39→06:01)
[2020-02-21] MEDS: KCL 20 MEQ TAB (K-DUR) PO SCH (03:39)
[2020-02-21] MEDS: POTASSIUM CL 10MEQ/50ML IVPB 50 ML IV SCH ×9 (03:39→11:34)
[2020-02-21] MEDS: inSUlin ASPART (NovoLOG) 1 UNIT/0.01 ML (CHARGE PER UNIT) SC SCH ×4 (03:39→23:21)
[2020-02-21] MEDS: NS IV 1000 ML 1,000 ML IV SCH ×3 (04:19→23:19)
--- NOTE | 2020-02-21 05:33 | Pulmonary Progress Note ---
Subjective Time Seen by a Provider: 05:27 Subjective/Events-last exam Pt is sedated on vent. Sepsis Event Evaluation Height, Weight, BMI Height: 5'7.00" Weight: 220lbs. 0.0oz. 99.486194yd; 44.95 BMI Method:Stated Exam Exam Vital Signs Date Time Temp Pulse Resp B/P (MAP) Pulse Ox O2 Delivery O2 Flow Rate FiO2 02/21/20 04:00 63 16 100/58 94 Mechanical Ventilator 45.00 02/21/20 03:04 Mechanical Ventilator 45.00 02/21/20 03:00 71 16 110/64 94 Mechanical Ventilator 40.00 02/21/20 02:55 72 16 93 45 02/21/20 02:00 58 28 90/51 92 Mechanical Ventilator 40.00 02/21/20 01:00 59 02/21/20 01:00 58 21 96/53 92 Mechanical Ventilator 40.00 02/21/20 00:00 37.0 02/21/20 00:00 60 16 94/54 92 Mechanical Ventilator 40.00 02/20/20 23:00 57 21 102/56 92 Mechanical Ventilator 40.00 02/20/20 22:43 59 16 91 40 02/20/20 22:00 56 20 97/54 92 Mechanical Ventilator 40.00 02/20/20 21:35 60 103/58 02/20/20 21:34 60 103/58 02/20/20 21:00 57 21 97/54 92 Mechanical Ventilator 40.00 02/20/20 21:00 92 Mechanical Ventilator 40.00 02/20/20 20:00 61 20 111/67 90 Mechanical Ventilator 40.00 02/20/20 20:00 37.2 02/20/20 19:07 61 16 93 40 02/20/20 19:00 61 16 101/55 92 Mechanical Ventilator 40.00 02/20/20 19:00 61 02/20/20 18:00 59 15 103/61 93 Mechanical Ventilator 40.00 02/20/20 17:00 63 15 99/57 92 Mechanical Ventilator 40.00 02/20/20 16:17 37.3 02/20/20 16:00 67 16 112/62 94 Mechanical Ventilator 40.00 02/20/20 15:00 67 22 108/61 93 Mechanical Ventilator 40.00 02/20/20 14:56 71 16 93 45 02/20/20 14:00 68 34 108/60 93 Mechanical Ventilator 40.00 02/20/20 13:54 73 111/61 02/20/20 13:53 73 111/61 02/20/20 13:00 68 16 112/65 94 Mechanical Ventilator 40.00 02/20/20 12:24 63 02/20/20 12:00 63 15 101/54 95 Mechanical Ventilator 40.00 02/20/20 11:00 63 15 101/55 93 Mechanical Ventilator 40.00 02/20/20 10:51 95 40.00 02/20/20 10:49 37.2 02/20/20 10:34 67 16 95 45 02/20/20 10:00 65 15 101/56 95 Mechanical Ventilator 35.00 02/20/20 09:00 63 16 97/57 95 Mechanical Ventilator 35.00 02/20/20 08:29 95 Mechanical Ventilator 35.00 02/20/20 08:00 61 16 108/62 100 Mechanical Ventilator 35.00 02/20/20 07:55 36.3 02/20/20 07:08 63 16 90 35 02/20/20 07:00 59 20 110/62 93 Mechanical Ventilator 35.00 02/20/20 07:00 63 02/20/20 06:00 64 19 115/68 94 Mechanical Ventilator 35.00 02/20/20 05:59 64 97/56 02/20/20 05:58 65 97/56 I & O 02/21/20 07:00 Intake Total 1045 ml Output Total 2700 ml Balance -1655 ml Height & Weight Height: 5'7.00" Weight: 220lbs. 0.0oz. 99.528380tz; 44.95 BMI Method:Stated General Appearance: Other (sedated on vent. ) HEENT: PERRL/EOMI Respiratory: Other (Intubated) Cardiovascular: Regular Rate, Rhythm, No Gallop, No JVD, No Murmur Capillary Refill: Less Than 3 Seconds Gastrointestinal: soft; No distended Extremity: Other (3+ significant edema going up to the hip and including the abdomen) Neurologic/Psychiatric: Other (sedated and intubated) Skin: Erythema Results Lab Laboratory Tests 02/20/20 03:01 02/21/20 02:52 Assessment/Plan Assessment/Plan Acute respiratory failure Influenza B positive with ARDS Pa02/Fi02 214 now - Pt failed weaning yesterday -D/C fentanyl, decrease Propofol and add Precedex. -Hold propofol for sedation vacation. -Copious sputum, WBC trending up. - Zosyn stopped yesterday. Pt grew out pseudomonus -Restart Zosyn -Repeat sputum culture and check PCT. -Tamiflu -Lasix BID 40mg -Intubated on admission 02/15 -Reintubated 02/16 secondary to self extubation -Change vent to AC 24/400/PEEP of 15 -Decrease PEEP to 5 -Repeat ABG in 1hr -Propofol and Fentanyl -CXR reviewed -Intubated 02/15 on admission - COVID is negative -Bilater dopplers - normal - Decadron -- D/C Pneumonia with probable pseudomonus and strep -Continue Zosyn Cellulitis -improved -Vanco, Zosyn started 02/16 -D/C Vanco 02/19 -Oswald cultures pending Hypotension -Improved -Monitor ARF with hyperphos -Start PhosLo -Monitor Hx of venous insuff CAD hx Chronic tobacco use STU CABAN DO Feb 21, 2020 05:33
[2020-02-21] MEDS: LACTATED RINGERS 1,000 ML IV SCH ×2 (06:02→15:53)
[2020-02-21] MEDS: PIPERACILLIN/TAZOBACTAM (BULK) 4.5 GM in NS (IVPB) 100 ML IV SCH ×3 (06:02→23:22)
[2020-02-21] MEDS: FUROSEMIDE 40 MG/4 ML INJ (LASIX) IVP SCH ×2 (06:02→17:32)
--- NOTE | 2020-02-21 07:09 | Diagnostic Imaging Report ---
INDICATION: Influenza, intubated. COMPARISON: 02/20/2020. FINDINGS: Single view of the chest demonstrates stable support devices. The heart is prominent without overt pulmonary edema. There is stable effusion and atelectasis in the left base. Underlying infiltrate not excluded. The right lung is clear. There is no pneumothorax. IMPRESSION: 1. Unchanged aeration left lung base. 2. Stable support devices. Dictated by: Dictated on workstation # [id number]
[2020-02-21] MEDS: OSELTAMIVIR 6 MG/ML (TAMIFLU) 60 ML BOT PEG SCH ×2 (07:45→20:09)
[2020-02-21] MEDS: ARTIFICIAL TEARS OINT (LACRI-LUBE) 3.5 GM TUBE OU SCH ×3 (07:45→20:08)
[2020-02-21] MEDS: LOSARTAN 25 MG (COZAAR) TAB PO SCH (07:45)
[2020-02-21] MEDS: NYSTATIN CREAM (MYCOSTATIN) 30 GM TUBE TP SCH ×3 (07:45→20:08)
[2020-02-21] MEDS: CALCIUM ACETATE 667 MG CAP (PHOSLO) PO SCH ×3 (07:45→17:32)
[2020-02-21] MEDS: meTOprolol TARTRATE 25 MG (LOPRESSOR) TABLET PO SCH ×2 (07:46→20:09)
--- NOTE | 2020-02-21 07:47 | NUR ---
PT AWAKE WITH EYES OPEN IN BED WITH SEDATION OFF. PT SQUEEZES HANDS AND WIGGLES TOES TO COMMAND. PT IS UNABLE TO LIFT ONE FINGER AT THIS TIME. PEEP DECREASED TO [address] ARSH LEE. WILL MONITOR.
[2020-02-21 08:10] VITALS: BP 143/117
[2020-02-21 09:03] LABS: ABG OXYGEN SATURATION 97 % (94-100); ABG PH 7.35 (7.37-7.43); ABG PO2 100 MMHG (79-93); ABG TCO2 40.1 MMOL/L (21.0-31.0)
[2020-02-21 09:06] LABS: ABG PCO2 71 MMHG (35-45)
[2020-02-21 09:07] LABS: INSPIRED O2 45%; PATIENT TEMP 99.1; VENTILATOR YES
--- NOTE | 2020-02-21 09:20 | Cardiology Progress Note ---
Subjective Date Seen by Provider: Feb 21, 2020 Time Seen by Provider: 09:15 Subjective/Events-last exam Patient is ventilator dependent, awake, on weaning trial Review of Systems General: Other (unable to provide review of systems) Objective-Cardiology Exam Last Set of Vital Signs Vital Signs 02/21/20 02/21/20 02/21/20 02/21/20 06:00 07:56 07:59 08:10 Temp 37.2 Pulse 67 Resp 16 B/P (MAP) 102/65 Pulse Ox 91 O2 Delivery Mechanical Ventilator O2 Flow Rate 40.00 FiO2 35 Capillary Refill : Less Than 3 Seconds I&O Intake and Output 02/21/20 00:00 Intake Total 3567.5 ml Output Total 3075 ml Balance 492.5 ml IV Total 3057.5 ml Tube Feeding 360 ml Other 150 ml Output Urine Total 3075 ml General: Other (intubated) HEENT: Atraumatic, PERRLA Lungs: Normal Air Movement, Other (bilateral rhonchi) Heart: Regular Rate, Normal S1, Normal S2 Abdomen: Normal Bowel Sounds Extremities: Other (peripheral edema) Neuro: Other (intubated) Psych/Mental Status: Other (intubated) Results Lab Laboratory Tests 02/21/20 02:52 A/P-Cardiology Admission Diagnosis Acute respiratory failure Non-ST elevation myocardial infarction Congestive heart failure Acute renal failure Assessment/Plan Acute respiratory failure, ventilator dependent, being weaned off the ventilator today, managed by primary care team Influenza B infection, managed by Dr. Hummel Congestive heart failure, acute left ventricular systolic dysfunction, nonischemic cardiomyopathy, probably stunned myocardium due to hypoxemia. Responding well to diuretics, continue to monitor Coronary artery disease, history of myocardial infarction in 2009 transferred to [facility] and had a stent to the circumflex artery. Repeat cardiac catheterization was carried out on February 18, 2020 showing patent stent in the circumflex artery otherwise mild coronary artery disease, non obstructive disease with severe cardiomyopathy and ejection fraction 25 percent and elevated left ventricular end-diastolic pressure, continue on diuretics for now Chronic pedal edema which has been worsening. Continue on diuresis and monitor Acute on chronic renal insufficiency, improved, continue to monitor Tobaccoism Clinical Quality Measures DVT/VTE Risk/Contraindication: Risk Factor Score Per Nursin RFS Level Per Nursing on Admit: 4+=Very High JOYCE ANDREA MD Feb 21, 2020 09:20
--- NOTE | 2020-02-21 10:18 | Physical Therapy Progress Note ---
Therapy Progress Note Patient currently on hold per RN due to labs. Patient remains intubated. PT will continue to monitor patient status and initiate treatment when patient is medically stable and able to actively participate with skilled therapy. THOR DIAL PT Feb 21, 2020 10:18
[2020-02-21 11:18] VITALS: BP 108/66
[2020-02-21 12:02] LABS: ABG BASE EXCESS 10.9 MMOL/L (-2.5-2.5); ABG OXYGEN SATURATION 96 % (94-100); ABG PCO2 59 MMHG (35-45); ABG PH 7.41 (7.37-7.43); ABG PO2 84 MMHG (79-93); ABG TCO2 37.8 MMOL/L (21.0-31.0)
[2020-02-21 12:03] LABS: INSPIRED O2 45%; PATIENT TEMP 99.1; VENTILATOR YES
[2020-02-21] MEDS ORDERED: PROPOFOL DRIP (ICU) 200 ML IV ONE (12:09)
[2020-02-21] MEDS: PROPOFOL DRIP (ICU) 100 ML IV SCH ×3 (12:19→21:46)
[2020-02-21] MEDS ORDERED: CATHETER FLUSH 10 ML SYR IV PRN (12:30)
[2020-02-21] MEDS: ENOXAPARIN 300 MG/3 ML (LOVENOX) MULTI-DOSE VIAL SQ SCH ×2 (13:48→23:21)
[2020-02-21 14:50] VITALS: BP 108/66
--- NOTE | 2020-02-21 15:52 | Occ Therapy Progress Note ---
Therapy Progress Note Patient currently on hold per RN due to labs. Patient remains intubated. OT will continue to monitor patient status and initiate treatment when patient is more medically stable and able to actively participate in skilled therapy. JAVIER CALERO OT Feb 21, 2020 15:52
[2020-02-21 19:59] VITALS: BP 110/94
--- NOTE | 2020-02-21 20:51 | NUR ---
PULMACARE TUBE FEEDING RUNNING 25ML/HR. PATIENT HAVING COPIOUS AMOUNTS OF DIARRHEA. TUBE FEEDINGS HELD AT THIS TIME.
[2020-02-21 22:23] VITALS: BP 108/59
[2020-02-22 01:53] VITALS: BP 105/59
[2020-02-22] MEDS: RT-ALBUTEROL INHALER HFA (VENTOLIN HFA) 18 GM IH SCH ×6 (01:53→22:07)
[2020-02-22] MEDS: IPRATROPIUM INHALER (ATROVENT) 12.9 GM INH SCH ×6 (01:53→22:07)
--- NOTE | 2020-02-22 02:00 | NUR ---
TUBE FEEDINGS RESTARTED AT 15ML/HR.
[2020-02-22 02:33] LABS: ABG BASE EXCESS 10.5 MMOL/L (-2.5-2.5); ABG OXYGEN SATURATION 93 % (94-100); ABG PCO2 40 MMHG (35-45); ABG PH 7.54 (7.37-7.43); ABG PO2 67 MMHG (79-93); ABG TCO2 35.2 MMOL/L (21.0-31.0); ALLENS TEST YES-POS
[2020-02-22 02:34] LABS: INSPIRED O2 60%; PATIENT TEMP 36.9; VENTILATOR YES
[2020-02-22 02:46] LABS: BASOPHILS % (AUTO) 0 % (0-10); EOSINOPHILS # (AUTO) 0.1 10^3/uL (0.0-0.3); EOSINOPHILS % (AUTO) 1 % (0-10); HEMATOCRIT 40 % (35-52); HEMOGLOBIN 11.6 g/dL (11.5-16.0); LYMPHOCYTES # (AUTO) 1.5 10^3/uL (1.0-4.0); LYMPHOCYTES % (AUTO) 14 % (12-44); MEAN CORPUSCULAR HEMOGLOBIN 25 pg (25-34); MEAN CORPUSCULAR HGB CONC 29 g/dL (32-36); MEAN CORPUSCULAR VOLUME 84 fL (80-99); MONOCYTES % (AUTO) 10 % (0-12); NEUTROPHILS # (AUTO) 7.9 10^3/uL (1.8-7.8); NEUTROPHILS % (AUTO) 74 % (42-75); PLATELET COUNT 240 10^3/uL (130-400); WHITE BLOOD COUNT 10.5 10^3/uL (4.3-11.0)
[2020-02-22 02:47] LABS: POTASSIUM 3.1 MMOL/L (3.6-5.0)
[2020-02-22 02:48] LABS: CALCIUM 8.3 MG/DL (8.5-10.1)
[2020-02-22 02:52] LABS: CREATININE SERUM 1.13 MG/DL (0.60-1.30); PHOSPHORUS 2.4 MG/DL (2.3-4.7)
[2020-02-22 02:55] LABS: MAGNESIUM 1.7 MG/DL (1.6-2.4)
[2020-02-22] MEDS: POTASSIUM CL 10MEQ/50ML IVPB 50 ML IV SCH ×8 (02:59→08:57)
[2020-02-22] MEDS: MAGNESIUM 1 GM/100 ML IVPB 100 ML IV SCH ×3 (02:59→04:30)
[2020-02-22] MEDS: KCL 20 MEQ TAB (K-DUR) PO SCH (02:59)
[2020-02-22] MEDS: inSUlin ASPART (NovoLOG) 1 UNIT/0.01 ML (CHARGE PER UNIT) SC SCH ×5 (04:18→23:59)
[2020-02-22] MEDS: fentaNYL DRIP PRE-MIX 250 ML IV SCH (05:33)
[2020-02-22] MEDS: PROPOFOL DRIP (ICU) 100 ML IV SCH ×3 (05:35→19:47)
[2020-02-22] MEDS: FUROSEMIDE 40 MG/4 ML INJ (LASIX) IVP SCH ×4 (06:32→17:25)
--- NOTE | 2020-02-22 06:33 | NUR ---
240ML OF FENTANYL GTT WASTED AND WITNESSED BY ROGER GUERRERO
[2020-02-22] MEDS: DexMEDEtomidine PRE MIX 100 ML IV SCH ×3 (06:35→21:29)
[2020-02-22 07:17] VITALS: BP 105/67
--- NOTE | 2020-02-22 07:45 | Physical Therapy Progress Note ---
Therapy Progress Note Patient remains intubated with sedation. PT will continue to follow patient status. THOR DIAL PT Feb 22, 2020 07:45
--- NOTE | 2020-02-22 07:48 | Cardiology Progress Note ---
Subjective Date Seen by Provider: Feb 22, 2020 Time Seen by Provider: 07:46 Subjective/Events-last exam Patient failed weaning yesterday, ventilatory dependent, sedated Review of Systems General: Other (unable to provide review of systems) Objective-Cardiology Exam Last Set of Vital Signs Vital Signs 02/22/20 02/22/20 02/22/20 02/22/20 03:23 06:00 06:35 07:17 Temp 36.9 Pulse 61 Resp 24 B/P (MAP) 117/73 Pulse Ox 92 O2 Delivery Mechanical Ventilator O2 Flow Rate 60.00 FiO2 60 Capillary Refill : Less Than 3 Seconds I&O Intake and Output 02/22/20 00:00 Intake Total 2780 ml Output Total 2450 ml Balance 330 ml IV Total 2450 ml Tube Feeding 230 ml Other 100 ml Output Urine Total 2450 ml # Bowel Movements 3 General: Other (intubated) HEENT: Atraumatic, PERRLA Lungs: Normal Air Movement, Other (bilateral rhonchi) Heart: Regular Rate, Normal S1, Normal S2 Abdomen: Normal Bowel Sounds Extremities: Other (peripheral edema) Neuro: Other (intubated) Psych/Mental Status: Other (intubated) Results Lab Laboratory Tests 02/22/20 02:30 A/P-Cardiology Admission Diagnosis Acute respiratory failure Non-ST elevation myocardial infarction Congestive heart failure Acute renal failure Assessment/Plan Acute respiratory failure, ventilator dependent, failed weaning yesterday, currently sedated, continue with diuresis Influenza B infection, managed by Dr. Hummel Congestive heart failure, acute left ventricular systolic dysfunction, nonischemic cardiomyopathy, probably stunned myocardium due to hypoxemia. Responding well to diuretics, continue to monitor Hypokalemia, replace and monitor Coronary artery disease, history of myocardial infarction in 2009 transferred to [facility] and had a stent to the circumflex artery. Repeat cardiac catheterization was carried out on February 18, 2020 showing patent stent in the circumflex artery otherwise mild coronary artery disease, non obstructive disease with severe cardiomyopathy and ejection fraction 25 percent and elevated left ventricular end-diastolic pressure, continue on diuretics for now Chronic pedal edema, continue with diuretics and monitor response Acute on chronic renal insufficiency, improved, continue to monitor Tobaccoism Clinical Quality Measures DVT/VTE Risk/Contraindication: Risk Factor Score Per Nursin RFS Level Per Nursing on Admit: 4+=Very High JOYCE ANDREA MD Feb 22, 2020 07:48
--- NOTE | 2020-02-22 07:51 | Diagnostic Imaging Report ---
Portable semi-erect AP chest at 3:51. Indication: Respiratory distress Findings: In the interval since the prior exam of 02/21/2020, the ET tube tip has been retracted. The tip now overlies the midportion of the tracheal air shadow and seems to be in good position. The supportive tubes and lines are similar in position. The heart does seem less prominent than on the prior exam but the atelectasis/infiltrate in the left lung base may be somewhat greater than on the previous study. Mild right lower lobe atelectasis/infiltrate is also suspected. The upper lungs are generally clear. The mediastinum is not widened. The osseous structures are intact. Impression: The appearance of the chest has worsened somewhat since the prior study as there does appear to be slightly greater involvement of both lung bases by pneumonia/atelectasis. Followup study would be recommended for continued evaluation. Dictated by: Dictated on workstation # [id number]
[2020-02-22] MEDS: POTASSIUM CHLORIDE INJ 20 MEQ in LACTATED RINGERS 1,000 ML IV SCH (08:42)
[2020-02-22] MEDS: ARTIFICIAL TEARS OINT (LACRI-LUBE) 3.5 GM TUBE OU SCH ×3 (08:44→19:35)
[2020-02-22] MEDS: CALCIUM ACETATE 667 MG CAP (PHOSLO) PO SCH ×3 (08:44→17:14)
[2020-02-22] MEDS: NYSTATIN CREAM (MYCOSTATIN) 30 GM TUBE TP SCH ×3 (08:44→19:35)
[2020-02-22] MEDS: LOSARTAN 25 MG (COZAAR) TAB PO SCH (08:44)
[2020-02-22] MEDS: meTOprolol TARTRATE 25 MG (LOPRESSOR) TABLET PO SCH ×2 (08:44→20:31)
[2020-02-22] MEDS: PIPERACILLIN/TAZOBACTAM (BULK) 4.5 GM in NS (IVPB) 100 ML IV SCH ×3 (08:44→23:22)
[2020-02-22] MEDS: NS IV 1000 ML 1,000 ML IV SCH (09:29)
--- NOTE | 2020-02-22 09:58 | NUR ---
CM/SS discharge planning. CM/SS assisting sample worker Tez for discharge planning. It was requested from physician that this sw send a referral to [facility]. A referral was faxed and awaiting acceptance/denial. Will continue to assist if needed. Addendum: 02/22/20 at 1115 by YOLIE SANCHEZ CM/SS update: It was found that patient is self pay and financial services will work with daughter for application. CM/SS notified
--- NOTE | 2020-02-22 10:01 | Occ Therapy Progress Note ---
Therapy Progress Note Per notes, pt failed vent weaning yesterday; pt continues on mechanical ventilation/ sedation. OT to continue to monitor and initiate tx when medically stable/ able to participate in skilled treatment. JARVIS VALDES OTR Feb 22, 2020 10:01
[2020-02-22 10:36] VITALS: BP 101/65
--- NOTE | 2020-02-22 12:00 | NUR ---
During care rounds, it was noted pt is currently receiving TF of Pulmocare 1.5 at rate of 15ml/hr, with flushes of 25ml q4h. Would recommend continuation at this rate at this time. Will continue to follow and reassess as pt needs, intake, and status change. Ivon Santana, MS RD LD
[2020-02-22] MEDS: ENOXAPARIN 300 MG/3 ML (LOVENOX) MULTI-DOSE VIAL SQ SCH ×2 (12:35→23:22)
[2020-02-22 15:33] VITALS: BP 101/89
[2020-02-22 19:08] VITALS: BP 137/82
[2020-02-22 22:07] VITALS: BP 132/84
[2020-02-23] MEDS: PROPOFOL DRIP (ICU) 100 ML IV SCH ×6 (00:21→19:28)
[2020-02-23] MEDS: DexMEDEtomidine PRE MIX 100 ML IV SCH ×5 (01:20→21:04)
[2020-02-23] MEDS: RT-ALBUTEROL INHALER HFA (VENTOLIN HFA) 18 GM IH SCH ×6 (01:35→23:34)
[2020-02-23 01:36] VITALS: BP 124/81
[2020-02-23] MEDS: IPRATROPIUM INHALER (ATROVENT) 12.9 GM INH SCH ×6 (01:36→23:34)
[2020-02-23 02:14] LABS: BASOPHILS % (AUTO) 0 % (0-10); EOSINOPHILS # (AUTO) 0.3 10^3/uL (0.0-0.3); EOSINOPHILS % (AUTO) 3 % (0-10); HEMATOCRIT 42 % (35-52); HEMOGLOBIN 12.3 g/dL (11.5-16.0); LYMPHOCYTES % (AUTO) 11 % (12-44); MEAN CORPUSCULAR HEMOGLOBIN 25 pg (25-34); MEAN CORPUSCULAR HGB CONC 29 g/dL (32-36); MEAN CORPUSCULAR VOLUME 85 fL (80-99); MEAN PLATELET VOLUME 9.6 fL (9.0-12.2); MONOCYTES % (AUTO) 11 % (0-12); NEUTROPHILS # (AUTO) 7.2 10^3/uL (1.8-7.8); NEUTROPHILS % (AUTO) 75 % (42-75); PLATELET COUNT 270 10^3/uL (130-400); WHITE BLOOD COUNT 9.7 10^3/uL (4.3-11.0)
[2020-02-23 02:22] LABS: ABG BASE EXCESS 9.1 MMOL/L (-2.5-2.5); ABG OXYGEN SATURATION 95 % (94-100); ABG PCO2 40 MMHG (35-45); ABG PH 7.52 (7.37-7.43); ABG PO2 74 MMHG (79-93); ABG TCO2 33.9 MMOL/L (21.0-31.0)
[2020-02-23 02:25] LABS: ALLENS TEST ART LINE; INSPIRED O2 60%; PATIENT TEMP 36.6; VENTILATOR YES
[2020-02-23 02:26] LABS: POTASSIUM 3.5 MMOL/L (3.6-5.0)
[2020-02-23 02:27] LABS: CALCIUM 8.4 MG/DL (8.5-10.1)
[2020-02-23 02:32] LABS: CREATININE SERUM 1.11 MG/DL (0.60-1.30); PHOSPHORUS 3.7 MG/DL (2.3-4.7)
[2020-02-23 02:34] LABS: MAGNESIUM 1.9 MG/DL (1.6-2.4)
[2020-02-23] MEDS: KCL 20 MEQ TAB (K-DUR) PO SCH (02:35)
[2020-02-23] MEDS: POTASSIUM CL 10MEQ/50ML IVPB 50 ML IV SCH ×6 (02:35→06:20)
[2020-02-23] MEDS: MAGNESIUM 1 GM/100 ML IVPB 100 ML IV SCH (02:35)
--- NOTE | 2020-02-23 03:24 | Pulmonary Progress Note ---
Subjective Time Seen by a Provider: 03:23 Subjective/Events-last exam Pt is sedated on vent. Sepsis Event Evaluation Height, Weight, BMI Height: 5'7.00" Weight: 220lbs. 0.0oz. 99.355330jd; 44.95 BMI Method:Stated Exam Exam Vital Signs Date Time Temp Pulse Resp B/P (MAP) Pulse Ox O2 Delivery O2 Flow Rate FiO2 02/23/20 01:36 57 20 93 60 02/23/20 01:20 56 02/23/20 01:00 60 02/23/20 00:21 135/84 02/22/20 23:21 36.4 Mechanical Ventilator 65.00 02/22/20 23:00 56 20 128/80 92 Mechanical Ventilator 60.00 02/22/20 22:07 51 20 91 60 02/22/20 22:00 54 20 132/84 91 Mechanical Ventilator 60.00 02/22/20 21:29 55 02/22/20 21:00 57 20 130/79 91 Mechanical Ventilator 60.00 02/22/20 20:25 94 Mechanical Ventilator 60.00 02/22/20 20:00 55 20 147/89 91 Mechanical Ventilator 60.00 02/22/20 19:47 139/84 02/22/20 19:40 Mechanical Ventilator 60.00 02/22/20 19:32 36.6 02/22/20 19:08 55 20 92 60 02/22/20 19:00 60 02/22/20 19:00 55 20 137/82 91 Mechanical Ventilator 60.00 02/22/20 18:00 55 20 135/79 92 Mechanical Ventilator 60.00 02/22/20 17:39 36.7 57 19 153/89 91 Mechanical Ventilator 60.00 02/22/20 17:00 57 20 137/80 93 Mechanical Ventilator 60.00 02/22/20 16:00 57 19 153/89 91 Mechanical Ventilator 60.00 02/22/20 16:00 36.7 02/22/20 15:33 60 20 94 60 02/22/20 15:00 59 11 154/89 94 Mechanical Ventilator 60.00 02/22/20 14:00 58 131/83 93 Mechanical Ventilator 60.00 02/22/20 13:00 61 19 104/62 93 Mechanical Ventilator 60.00 02/22/20 12:43 62 02/22/20 12:00 61 20 130/82 94 Mechanical Ventilator 60.00 02/22/20 11:41 37.0 02/22/20 11:00 63 22 109/71 95 Mechanical Ventilator 60.00 02/22/20 10:36 58 24 94 60 02/22/20 10:30 120 42 91 02/22/20 10:00 58 19 101/65 95 Mechanical Ventilator 60.00 02/22/20 09:18 94 Mechanical Ventilator 60.00 02/22/20 09:08 37.2 02/22/20 09:00 73 20 103/66 93 Mechanical Ventilator 60.00 02/22/20 08:00 60 20 115/73 94 Mechanical Ventilator 60.00 02/22/20 07:17 61 24 92 60 02/22/20 07:00 62 24 102/64 94 Mechanical Ventilator 60.00 02/22/20 06:35 61 117/73 02/22/20 06:34 61 02/22/20 06:00 55 24 97/57 94 Mechanical Ventilator 60.00 02/22/20 05:36 58 92/5 02/22/20 05:35 58 92/58 02/22/20 05:00 56 23 99/58 93 Mechanical Ventilator 60.00 02/22/20 04:00 58 24 98/60 94 Mechanical Ventilator 60.00 02/22/20 03:23 36.9 I & O 02/23/20 07:00 Intake Total 1485 ml Output Total 2075 ml Balance -590 ml Height & Weight Height: 5'7.00" Weight: 220lbs. 0.0oz. 99.235267dl; 44.95 BMI Method:Stated General Appearance: Other (sedated on vent. ) HEENT: PERRL/EOMI Respiratory: Other (Intubated) Cardiovascular: Regular Rate, Rhythm, No Gallop, No JVD, No Murmur Capillary Refill: Less Than 3 Seconds Gastrointestinal: soft; No distended Extremity: Other (3+ significant edema going up to the hip and including the abdomen) Neurologic/Psychiatric: Other (sedated and intubated) Skin: Erythema Results Lab Laboratory Tests 02/22/20 02:30 02/23/20 01:56 Assessment/Plan Assessment/Plan Acute respiratory failure Influenza B positive with ARDS Pa02/Fi02 214 now - Not ready to wean yet -Increase PEEP 10 -Propofol and add Precedex. -Copious sputum, WBC trending up. - Zosyn -Repeat sputum culture pending and PCT is higher -Tamiflu -Lasix BID 40mg repeat BNP -Intubated on admission 02/15 -Reintubated 02/16 secondary to self extubation -Change vent to AC 24/400/PEEP of 15 -Decrease PEEP to 5 -Repeat ABG in 1hr -Propofol and Fentanyl -CXR reviewed -Intubated 02/15 on admission - COVID is negative -Bilater dopplers - normal - Decadron -- D/C Pneumonia with probable pseudomonus and strep -Continue Zosyn Cellulitis -improved -Vanco, Zosyn started 02/16 -D/C Vanco 02/19 -Oswald cultures pending Hypotension -Improved -Monitor ARF with hyperphos -Start PhosLo -Monitor Hx of venous insuff CAD hx Chronic tobacco use STU CABAN DO Feb 23, 2020 03:24
[2020-02-23] MEDS: POTASSIUM CHLORIDE INJ 20 MEQ in LACTATED RINGERS 1,000 ML IV SCH ×2 (04:22→09:03)
[2020-02-23] MEDS: inSUlin ASPART (NovoLOG) 1 UNIT/0.01 ML (CHARGE PER UNIT) SC SCH ×4 (05:22→23:11)
[2020-02-23] MEDS: FUROSEMIDE 40 MG/4 ML INJ (LASIX) IVP SCH ×2 (05:23→16:45)
[2020-02-23 06:37] VITALS: BP 95/65
--- NOTE | 2020-02-23 08:04 | Physical Therapy Progress Note ---
Therapy Progress Note Patient remains ventilated and sedated, will continue to monitor. MARI LARRY PT Feb 23, 2020 08:04
--- NOTE | 2020-02-23 08:24 | Occ Therapy Progress Note ---
Therapy Progress Note Pt. continues on mechanical ventilation. Will need new OT orders when pt. is medically stable. [id number] JOLENE VALDIVIA OT Feb 23, 2020 08:24
[2020-02-23] MEDS: NYSTATIN CREAM (MYCOSTATIN) 30 GM TUBE TP SCH ×3 (08:50→19:28)
[2020-02-23] MEDS: ARTIFICIAL TEARS OINT (LACRI-LUBE) 3.5 GM TUBE OU SCH ×3 (08:50→19:28)
[2020-02-23] MEDS: PIPERACILLIN/TAZOBACTAM (BULK) 4.5 GM in NS (IVPB) 100 ML IV SCH ×3 (08:50→23:13)
[2020-02-23] MEDS: meTOprolol TARTRATE 25 MG (LOPRESSOR) TABLET PO SCH ×2 (08:50→20:07)
[2020-02-23] MEDS: LOSARTAN 25 MG (COZAAR) TAB PO SCH (08:50)
--- NOTE | 2020-02-23 08:52 | Diagnostic Imaging Report ---
EXAMINATION: Chest radiograph, portable AP view. DATE: 02/23/2020 2:54 AM hours. INDICATION: 55-year-old female, respiratory failure. COMPARISON: February 22, 2020. FINDINGS: The endotracheal tube is approximately 3.6 cm above the kiko. The nasogastric tube extends below the included field of view. The right internal jugular central venous line overlies the mid SVC. Stable overall appearance of the cardiomediastinal silhouette. There is no identified pneumothorax. There is nonspecific left basilar airspace consolidation. There are additional bilateral interstitial and alveolar opacities. IMPRESSION: 1. Bilateral interstitial and alveolar opacities as well as nonspecific left basilar airspace consolidation which may relate to effusion,, infiltrate, and/or atelectasis. 2. Support lines and tubes as above. Dictated by: Dictated on workstation # [id number]
[2020-02-23] MEDS: CALCIUM ACETATE 667 MG CAP (PHOSLO) PO SCH ×4 (09:03→17:26)
--- NOTE | 2020-02-23 09:12 | NUR ---
DR CABAN NOTIFIED OF PT'S CONTINUED DECREASED BLOOD PRESSURE, 86/57 PULSE 58, NEW ORDERS RECEIVED SEE ORDER HX.
[2020-02-23] MEDS ORDERED: NOREPINEPHRINE 4 MG/250 ML 250 ML IV ONE (09:13)
[2020-02-23] MEDS ORDERED: LACTATED RINGERS 1,000 ML IV ONE (09:13)
[2020-02-23] MEDS ORDERED: LACTATED RINGERS 250 ML IV ONE (09:15)
[2020-02-23] MEDS: NOREPINEPHRINE 4 MG/250 ML 250 ML IV SCH ×4 (09:38→23:11)
--- NOTE | 2020-02-23 09:38 | Physical Therapy Progress Note ---
Therapy Progress Note Attempted to perform PROM this am, pt occupied with nursing staff. Will attempt to see pt later this date. TETO STINSON PT Feb 23, 2020 09:38
[2020-02-23 10:38] VITALS: BP 103/69
[2020-02-23] MEDS: ENOXAPARIN 300 MG/3 ML (LOVENOX) MULTI-DOSE VIAL SQ SCH ×2 (12:56→23:11)
[2020-02-23 14:29] VITALS: BP 160/67
--- NOTE | 2020-02-23 14:41 | NUR ---
TF FOLLOW-UP Note pt currently receiving TF of Pulmocare 1.5 kcal at rate of 15ml/hr with flushes of 25ml water q4h. Would recommend conservative increases of 10ml q12h toward goal rate of 55ml/hr. Will continue to follow and reassess as pt needs, intake, and status change. Ivon Santana, MS RD LD
--- NOTE | 2020-02-23 16:36 | Cardiology Progress Note ---
Cardiology SOAP Progress Note Subjective: Intubated ventilated. Objective: I&O/Vital Signs 03/02/20 03/02/20 03/02/20 03/02/20 04:00 04:05 07:00 07:53 Temp 36.5 Pulse 87 82 Resp 26 B/P (MAP) 146/91 Pulse Ox 99 96 O2 Delivery NIV Bilevel NIV Bilevel Vapotherm O2 Flow Rate 40.00 30.00 30.00 FiO2 50 03/02/20 03/02/20 03/02/20 03/02/20 08:17 08:46 09:45 11:28 Temp 36.8 Pulse 90 Resp 15 B/P (MAP) 157/95 Pulse Ox 97 93 92 O2 Delivery NIV Bilevel Vapotherm Vapotherm Vapotherm O2 Flow Rate 30.00 30.00 30.00 45.00 FiO2 45 45 03/02/20 03/02/20 03/02/20 12:17 12:19 15:07 Temp 36.6 Pulse 88 84 Resp 19 B/P (MAP) 124/75 Pulse Ox 92 92 O2 Delivery Vapotherm Vapotherm O2 Flow Rate 30.00 30.00 45.00 FiO2 45 03/02/20 00:00 Intake Total 425 ml Output Total 50 ml Balance 375 ml Weight (Pounds): 220 Weight (Ounces): 0.0 Weight (Calculated Kilograms): 99.570831 Constitutional: other (intubated ventilated.) Respiratory: chest is bilaterally symmetric, lungs clear to auscultation Cardiovascular: regular rate-rhythm, S1 and S2 Gastrointestional: soft, audible bowel sounds Extremities: normal range of motion, non-tender, normal inspection, no lower extremity edema bilateral Neurologic/Psychiatric: other (intubated/ventilated.) Skin: rash (Leg redness is improving per nurse) Results/Procedures: Labs Laboratory Tests 03/01/20 20:31: Glucometer 97 03/02/20 03:09: White Blood Count 6.8, Red Blood Count 3.85, Hemoglobin 9.6L, Hematocrit 35, Mean Corpuscular Volume 90, Mean Corpuscular Hemoglobin 25, Mean Corpuscular Hemoglobin Concent 28L, Red Cell Distribution Width 19.7H, Platelet Count 413H, Mean Platelet Volume 9.8, Immature Granulocyte % (Auto) 1, Neutrophils (%) (Auto) 66, Lymphocytes (%) (Auto) 18, Monocytes (%) (Auto) 11, Eosinophils (%) (Auto) 3, Basophils (%) (Auto) 1, Neutrophils # (Auto) 4.5, Lymphocytes # (Auto) 1.2, Monocytes # (Auto) 0.7, Eosinophils # (Auto) 0.2, Basophils # (Auto) 0.1, Immature Granulocyte # (Auto) 0.1, Sodium Level 145, Potassium Level 3.4L, Chloride Level 104, Carbon Dioxide Level 28, Anion Gap 13, Blood Urea Nitrogen 14, Creatinine 0.72, Estimat Glomerular Filtration Rate > 60, BUN/Creatinine Ratio 19, Glucose Level 85, Calcium Level 8.6, Phosphorus Level 4.1, Magnesium Level 2.0 03/02/20 10:28: Glucometer 94 03/02/20 15:12: Glucometer 79 Microbiology 02/17/20 Blood Culture - Final, Complete No growth 02/17/20 Influenza Types A,B Antigen (THANG) - Final, Complete A/P: Assessment/Dx: Acute respiratory failure Non-ST elevation myocardial infarction Congestive heart failure Acute renal failure Plan: Acute respiratory failure, ventilator dependent, failed weaning yesterday, currently sedated, continue with diuresis Influenza B infection, managed by Dr. Hummel Congestive heart failure, acute left ventricular systolic dysfunction, nonischemic cardiomyopathy, probably stunned myocardium due to hypoxemia. Responding well to diuretics, continue to monitor Hypokalemia, replace and monitor Coronary artery disease, history of myocardial infarction in 2009 transferred to [facility] and had a stent to the circumflex artery. Repeat cardiac catheterization was carried out on February 18, 2020 showing patent stent in the circumflex artery otherwise mild coronary artery disease, non obstructive disease with severe cardiomyopathy and ejection fraction 25 percent and elevated left ventricular end-diastolic pressure, continue on diuretics for now Chronic pedal edema, continue with diuretics and monitor response Acute on chronic renal insufficiency, improved, continue to monitor Tobaccoism Thank you for your consultation. Please call me if you have any questions. Rayna Rangel MD, FACP, FACC, FSCAI, FHRS, CCDS Interventional Cardiology Cardiac Electrophysiology Vascular Medicine and Endovascular Interventions Scott RANGEL MD Feb 23, 2020 16:36
--- NOTE | 2020-02-23 17:24 | NUR ---
TUBE FEEDING RESIDUAL CHECKED PRIOR TO THIS RN TO ADMINISTER PO MEDICINE. THIS RN NOTED THAT PT'S RESIDUAL GREEN IN COLOR PH CHECKED AND NOTED AT 6. THIS RN THEN SPOKE TO E-ICU AND NEW ORDERS RECEIVED TO HOLD TUBE FEEDINGS AT THIS TIME AND KUB TO BE OBTAINED. PT'S ABDOMEN NOTED TO BE MORE DISTENDED AND BOWEL SOUNDS HYPOACTIVE. WILL CONTINUE TO MONITOR.
--- NOTE | 2020-02-23 19:20 | Diagnostic Imaging Report ---
INDICATION: Abdominal distention. COMPARISON: Gate Clerk from CT dated 08/04/2018. TECHNIQUE: Three radiographs of the abdomen were obtained dated February 23, 2020. FINDINGS: Enteric catheter is present with the distal tip and sidehole within the body of the stomach. Small amount of gas is identified within the colon, including extending into the lower pelvis. No dilated loops of small bowel, though there is a generalized paucity of small bowel gas. No free air. Scattered osseous degenerative changes without acute osseous abnormality. Mild scattered vascular calcifications. Left basilar pulmonary opacities are partially visualized. IMPRESSION: 1. Nonspecific bowel gas pattern without definite bowel obstruction. 2. Enteric catheter is present extending into the stomach. 3. Left basilar pulmonary infiltrates. Dictated by: Dictated on workstation # [id number]
[2020-02-23 20:05] VITALS: BP 129/93
[2020-02-23 23:34] VITALS: BP 122/87
[2020-02-24] VITALS (8 sets, daily range): BP systolic 106–143; BP diastolic 56–82
[2020-02-24] MEDS: PROPOFOL DRIP (ICU) 100 ML IV SCH ×4 (00:51→21:51)
[2020-02-24] MEDS: DexMEDEtomidine PRE MIX 100 ML IV SCH ×4 (00:51→21:51)
[2020-02-24 02:36] LABS: BASOPHILS % (AUTO) 0 % (0-10); EOSINOPHILS # (AUTO) 0.1 10^3/uL (0.0-0.3); EOSINOPHILS % (AUTO) 1 % (0-10); HEMATOCRIT 42 % (35-52); LYMPHOCYTES # (AUTO) 0.9 10^3/uL (1.0-4.0); LYMPHOCYTES % (AUTO) 10 % (12-44); MEAN CORPUSCULAR HEMOGLOBIN 24 pg (25-34); MEAN CORPUSCULAR HGB CONC 29 g/dL (32-36); MEAN CORPUSCULAR VOLUME 85 fL (80-99); MEAN PLATELET VOLUME 9.9 fL (9.0-12.2); MONOCYTES # (AUTO) 0.9 10^3/uL (0.0-1.0); MONOCYTES % (AUTO) 11 % (0-12); NEUTROPHILS # (AUTO) 6.9 10^3/uL (1.8-7.8); NEUTROPHILS % (AUTO) 78 % (42-75); PLATELET COUNT 298 10^3/uL (130-400); WHITE BLOOD COUNT 8.8 10^3/uL (4.3-11.0)
[2020-02-24 02:38] LABS: CALCIUM 8.7 MG/DL (8.5-10.1)
[2020-02-24 02:42] LABS: CREATININE SERUM 1.05 MG/DL (0.60-1.30); PHOSPHORUS 4.9 MG/DL (2.3-4.7)
[2020-02-24 02:45] LABS: MAGNESIUM 1.9 MG/DL (1.6-2.4)
[2020-02-24] MEDS: POTASSIUM CL 10MEQ/50ML IVPB 50 ML IV SCH (03:14)
[2020-02-24] MEDS: MAGNESIUM 1 GM/100 ML IVPB 100 ML IV SCH (03:14)
[2020-02-24] MEDS: KCL 20 MEQ TAB (K-DUR) PO SCH (03:15)
[2020-02-24] MEDS: NOREPINEPHRINE 4 MG/250 ML 250 ML IV SCH ×5 (04:18→23:29)
[2020-02-24 04:24] LABS: ABG BASE EXCESS 7.4 MMOL/L (-2.5-2.5); ABG OXYGEN SATURATION 94 % (94-100); ABG PCO2 45 MMHG (35-45); ABG PH 7.46 (7.37-7.43); ABG PO2 70 MMHG (79-93)
[2020-02-24 04:28] LABS: ALLENS TEST POS; INSPIRED O2 36%
[2020-02-24 04:29] LABS: PATIENT TEMP 36.5; VENTILATOR YES
--- NOTE | 2020-02-24 04:50 | Pulmonary Progress Note ---
Subjective Time Seen by a Provider: 04:50 Sepsis Event Evaluation Height, Weight, BMI Height: 5'7.00" Weight: 220lbs. 0.0oz. 99.968363se; 44.95 BMI Method:Stated Exam Exam Vital Signs Date Time Temp Pulse Resp B/P (MAP) Pulse Ox O2 Delivery O2 Flow Rate FiO2 02/24/20 01:00 60 02/24/20 00:51 57 02/24/20 00:51 119/71 02/24/20 00:00 57 17 119/71 95 Mechanical Ventilator 36.00 02/23/20 23:36 36 02/23/20 23:34 56 18 94 36 02/23/20 23:05 36.6 02/23/20 23:00 52 17 127/78 95 Mechanical Ventilator 36.00 02/23/20 22:00 52 17 127/80 94 Mechanical Ventilator 36.00 02/23/20 21:04 53 02/23/20 21:00 54 17 124/85 94 Mechanical Ventilator 36.00 02/23/20 20:17 Mechanical Ventilator 36.00 02/23/20 20:07 36 02/23/20 20:06 94 Mechanical Ventilator 40.00 02/23/20 20:05 Mechanical Ventilator 36.00 02/23/20 20:05 52 18 96 40 02/23/20 20:00 52 17 135/89 96 Mechanical Ventilator 40.00 02/23/20 19:30 36.6 Mechanical Ventilator 40.00 02/23/20 19:28 108/73 02/23/20 19:00 53 02/23/20 19:00 53 17 127/83 96 Mechanical Ventilator 40.00 02/23/20 18:00 55 18 116/89 96 Mechanical Ventilator 40.00 02/23/20 17:00 57 15 113/75 95 Mechanical Ventilator 40.00 02/23/20 16:49 37.2 53 18 160/67 96 Mechanical Ventilator 60.00 02/23/20 16:44 53 160/67 02/23/20 16:00 90 17 117/77 94 Mechanical Ventilator 40.00 02/23/20 15:00 56 25 100/64 93 Mechanical Ventilator 40.00 02/23/20 14:30 Mechanical Ventilator 40.00 02/23/20 14:29 53 18 96 45 02/23/20 14:29 40 02/23/20 14:00 52 28 99/66 99 Mechanical Ventilator 65.00 02/23/20 13:56 Mechanical Ventilator 55.00 02/23/20 13:48 53 108/70 02/23/20 13:00 52 17 108/70 99 Mechanical Ventilator 65.00 02/23/20 12:55 53 02/23/20 12:00 55 17 101/64 96 Mechanical Ventilator 65.00 02/23/20 11:48 37.2 55 18 103/69 94 Mechanical Ventilator 60.00 02/23/20 11:40 37.2 02/23/20 11:00 26 94/60 94 Mechanical Ventilator 65.00 02/23/20 10:38 55 18 94 60 02/23/20 10:38 60 02/23/20 10:00 27 95/60 92 Mechanical Ventilator 65.00 02/23/20 09:50 02/23/20 09:39 55 95/65 02/23/20 09:38 55 95/65 02/23/20 09:36 37.0 02/23/20 09:00 58 18 86/57 94 Mechanical Ventilator 65.00 02/23/20 08:45 94 Mechanical Ventilator 60.00 02/23/20 08:00 58 26 93/62 93 Mechanical Ventilator 65.00 02/23/20 07:00 27 91/60 91 Mechanical Ventilator 65.00 02/23/20 06:37 55 18 94 60 02/23/20 06:37 50 02/23/20 06:34 60 02/23/20 06:00 56 26 95/65 96 Mechanical Ventilator 65.00 02/23/20 05:25 57 02/23/20 05:25 100/69 02/23/20 05:00 56 26 100/69 96 Mechanical Ventilator 65.00 I & O 02/24/20 07:00 Intake Total 1325 ml Output Total 2300 ml Balance -975 ml Height & Weight Height: 5'7.00" Weight: 220lbs. 0.0oz. 99.291047cj; 44.95 BMI Method:Stated General Appearance: Other (sedated on vent. ) HEENT: PERRL/EOMI Respiratory: Other (Intubated) Cardiovascular: Regular Rate, Rhythm, No Gallop, No JVD, No Murmur Capillary Refill: Less Than 3 Seconds Gastrointestinal: soft; No distended Extremity: Other (3+ significant edema going up to the hip and including the abdomen) Neurologic/Psychiatric: Other (sedated and intubated) Skin: Erythema Results Lab Laboratory Tests 02/23/20 01:56 02/24/20 02:01 Assessment/Plan Assessment/Plan Acute respiratory failure Influenza B positive with ARDS Pa02/Fi02 214 now - Not ready to wean yet -Increase PEEP 10 -Propofol and add Precedex. -Copious sputum, WBC trending up. - Zosyn -Repeat sputum culture pending and PCT is higher -Tamiflu -Lasix BID 40mg -Intubated on admission 02/15 -Reintubated 02/16 secondary to self extubation -Change vent to AC 24/400/PEEP of 15 -Decrease PEEP to 5 -Repeat ABG in 1hr -Propofol and Fentanyl -CXR reviewed -Intubated 02/15 on admission - COVID is negative -Bilater dopplers - normal - Decadron -- D/C Pneumonia with probable pseudomonus and strep -Continue Zosyn Cellulitis -improved -Vanco, Zosyn started 02/16 -D/C Vanco 02/19 -Oswald cultures pending Hypotension -Improved -Monitor ARF with hyperphos -Start PhosLo -Monitor Hx of venous insuff CAD hx Chronic tobacco use STU CABAN DO Feb 24, 2020 04:50
[2020-02-24] MEDS: inSUlin ASPART (NovoLOG) 1 UNIT/0.01 ML (CHARGE PER UNIT) SC SCH ×4 (04:59→23:29)
[2020-02-24] MEDS: FUROSEMIDE 40 MG/4 ML INJ (LASIX) IVP SCH ×2 (05:05→16:26)
[2020-02-24] MEDS: RT-ALBUTEROL INHALER HFA (VENTOLIN HFA) 18 GM IH SCH ×5 (07:08→23:22)
[2020-02-24] MEDS: IPRATROPIUM INHALER (ATROVENT) 12.9 GM INH SCH ×5 (07:09→23:22)
--- NOTE | 2020-02-24 07:21 | Diagnostic Imaging Report ---
INDICATION: Pneumonia. Comparison 02/23/2020 FINDINGS: Heart size is unchanged. There are bibasal infiltrates. There is a left pleural effusion. There is some venous congestion. There is no pneumothorax. Mediastinum is unremarkable. IMPRESSION: Bibasal infiltrates and left pleural effusion. Mild central pulmonary venous congestion. Dictated by: Dictated on workstation # [id number]
--- NOTE | 2020-02-24 08:13 | Physical Therapy Progress Note ---
Therapy Progress Note Patient remains sedated and intubated. PT will continue to follow patient status. THOR DIAL PT Feb 24, 2020 08:13
[2020-02-24] MEDS: meTOprolol TARTRATE 25 MG (LOPRESSOR) TABLET PO SCH ×2 (08:15→20:21)
[2020-02-24] MEDS: LOSARTAN 25 MG (COZAAR) TAB PO SCH (08:28)
[2020-02-24] MEDS: ARTIFICIAL TEARS OINT (LACRI-LUBE) 3.5 GM TUBE OU SCH ×3 (08:28→20:21)
[2020-02-24] MEDS: CALCIUM ACETATE 667 MG CAP (PHOSLO) PO SCH ×3 (08:28→18:23)
[2020-02-24] MEDS: NYSTATIN CREAM (MYCOSTATIN) 30 GM TUBE TP SCH ×3 (08:29→20:21)
[2020-02-24] MEDS: PIPERACILLIN/TAZOBACTAM (BULK) 4.5 GM in NS (IVPB) 100 ML IV SCH ×3 (08:41→23:13)
--- NOTE | 2020-02-24 10:06 | Physical Therapy Progress Note ---
Therapy Progress Note PROM performed B U/LE's in all available planes. TETO STINSON PT Feb 24, 2020 10:06
--- NOTE | 2020-02-24 10:28 | NUR ---
SPOKE WITH INFECTION CONTROL REGARDING TAKING PATIENT OUT OF ISOLATION. SHE WILL REVIEW CHART AND CALL THIS RN BACK. DR CABAN STATES THAT HE IS OK WITH HER COMING OUT OF ISOLATION IF INFECTION CONTROL TAKES HER OUT.
--- NOTE | 2020-02-24 10:52 | NUR ---
RETURNED PHONE CALL FROM EARLIER THIS AM FROM KENNETH, PATIENTS DAUGHTER. NO ANSWER, LM TO RETURN CALL.
--- NOTE | 2020-02-24 13:55 | NUR ---
During care rounds, it was noted that TF were being held d/t residuals. Note pt's OG tube being used for suction of residuals. Continue holding TF at this time. Will continue to follow and reassess as pt needs, intake, and status change. Ivon Santana, MS RD LD
--- NOTE | 2020-02-24 14:10 | NUR ---
CM/SS: Telephone call from daughter Matilda - [phone]. She is asking about discharge planning. [facility] She is provides a email address for correspondence. [email or web address]. This worker contacts [employer] services with [employer] for additional information about the pt's self pay status. This worker will follow up.
[2020-02-24] MEDS: ENOXAPARIN 300 MG/3 ML (LOVENOX) MULTI-DOSE VIAL SQ SCH ×2 (14:42→23:13)
[2020-02-24] MEDS: POTASSIUM CHLORIDE INJ 20 MEQ in LACTATED RINGERS 1,000 ML IV SCH (16:26)
[2020-02-25] MEDS: DexMEDEtomidine PRE MIX 100 ML IV SCH ×3 (02:31→20:33)
[2020-02-25] MEDS: PROPOFOL DRIP (ICU) 100 ML IV SCH ×3 (02:31→23:26)
[2020-02-25 02:39] LABS: BASOPHILS % (AUTO) 0 % (0-10); EOSINOPHILS # (AUTO) 0.1 10^3/uL (0.0-0.3); EOSINOPHILS % (AUTO) 1 % (0-10); HEMATOCRIT 39 % (35-52); HEMOGLOBIN 11.4 g/dL (11.5-16.0); LYMPHOCYTES # (AUTO) 1.3 10^3/uL (1.0-4.0); LYMPHOCYTES % (AUTO) 17 % (12-44); MEAN CORPUSCULAR HEMOGLOBIN 25 pg (25-34); MEAN CORPUSCULAR HGB CONC 29 g/dL (32-36); MEAN CORPUSCULAR VOLUME 85 fL (80-99); MONOCYTES # (AUTO) 0.8 10^3/uL (0.0-1.0); MONOCYTES % (AUTO) 11 % (0-12); NEUTROPHILS # (AUTO) 5.3 10^3/uL (1.8-7.8); NEUTROPHILS % (AUTO) 71 % (42-75); PLATELET COUNT 289 10^3/uL (130-400); WHITE BLOOD COUNT 7.5 10^3/uL (4.3-11.0)
[2020-02-25 02:49] LABS: CHLORIDE 97 MMOL/L (98-107); POTASSIUM 3.4 MMOL/L (3.6-5.0); SODIUM 140 MMOL/L (135-145)
[2020-02-25 02:50] LABS: CALCIUM 8.6 MG/DL (8.5-10.1)
[2020-02-25 02:51] LABS: GLUCOSE 102 MG/DL (70-105)
[2020-02-25 02:52] LABS: CARBON DIOXIDE 30 MMOL/L (21-32)
[2020-02-25 02:55] LABS: CREATININE SERUM 0.87 MG/DL (0.60-1.30); GFR ESTIMATED > 60; PHOSPHORUS 4.6 MG/DL (2.3-4.7)
[2020-02-25 02:56] LABS: BUN/CREATININE RATIO 18
[2020-02-25 02:57] LABS: MAGNESIUM 1.9 MG/DL (1.6-2.4)
[2020-02-25 03:43] VITALS: BP 116/72
[2020-02-25] MEDS: RT-ALBUTEROL INHALER HFA (VENTOLIN HFA) 18 GM IH SCH ×3 (03:43→10:43)
[2020-02-25] MEDS: IPRATROPIUM INHALER (ATROVENT) 12.9 GM INH SCH ×3 (03:43→10:43)
[2020-02-25 03:48] LABS: ABG BASE EXCESS 8.1 MMOL/L (-2.5-2.5); ABG OXYGEN SATURATION 91 % (94-100); ABG PCO2 47 MMHG (35-45); ABG PH 7.45 (7.37-7.43); ABG PO2 70 MMHG (79-93); ABG TCO2 33.9 MMOL/L (21.0-31.0)
[2020-02-25 03:52] LABS: ALLENS TEST POSITIVE; INSPIRED O2 30; PATIENT TEMP 36.6; VENTILATOR YES
--- NOTE | 2020-02-25 03:54 | Pulmonary Consultation ---
History of Present Illness History of Present Illness Date Seen by Provider: Feb 25, 2020 Time Seen by Provider: 03:50 Date of Admission Reason for Visit: acute respiratory failure History of Present Illness Allergies and Home Medications Allergies Coded Allergies: No Known Drug Allergies (Unverified , 05/06/19) Home Medications Albuterol Sulfate 1 Puff Puff, 2 PUFF IH Q4H PRN for SHORTNESS OF BREATH, (Reported) Aspirin 81 Mg Tab.chew, 81 MG PO DAILY, (Reported) Atorvastatin Calcium 40 Mg Tablet, 40 MG PO DAILY, (Reported) Diphenhydramine HCl 25 Mg Capsule, 50 MG PO DAILY PRN for ALLERGY SYMPTOMS, (Reported) Furosemide 20 Mg Tablet, 40 MG PO DAILY, (Reported) TAKES 2 (20MG) TABS DAILY Hydrochlorothiazide 25 Mg Tablet, 25 MG PO DAILY, (Reported) Potassium Chloride 20 Meq Tablet.er, 40 MEQ PO DAILY, (Reported) TAKES 2 (20MEQ) TABS Past Fggolla-Xzlrlt-Mvqqmw Hx Patient Social History Alcohol Use: Denies Use Recreational Drug Use: No Type Used: Cigarettes 2nd Hand Smoke Exposure: Yes Recent Foreign Travel: No Contact w/Someone Who Travel: No Recent Infectious Disease Expo: No Recent Hopitalizations: No Immunizations Up To Date Tetanus Booster (TDap): Unknown PED Vaccines UTD: No Seasonal Allergies Seasonal Allergies: Yes Past Medical History Surgeries: Yes Bladder Surgery, Section, Gallbladder Respiratory: Yes (BEGINING STAGES) COPD Cardiac: Yes High Cholesterol, Hypertension Neurological: No Reproductive Disorders: No Female Reproductive Disorders: Denies Sexually Transmitted Disease: No HIV/AIDS: No Genitourinary: No Gastrointestinal: Yes (fatty liver disease) Gastroesophageal Reflux, Hiatal Hernia Musculoskeletal: Yes Chronic Back Pain Endocrine: No HEENT: Yes (GLASSES, DENTURES) Loss of Vision: Bilateral Hearing Impairment: Denies Cancer: No Psychosocial: Yes Anxiety, Depression Integumentary: No Blood Disorders: No Adverse Reaction/Blood Tranf: No (N/A) Family Medical History COPD 19 MOTHER Diabetes mellitus 19 FATHER Myocardial infarction 19 FATHER TESTICULAR CANCER G8 BROTHER No Pertinent Family Hx Review of Systems Time Seen by Provider: 03:54 Sepsis Event Evaluation Height, Weight, BMI Height: 5'7.00" Weight: 220lbs. 0.0oz. 99.839756sp; 44.95 BMI Method:Stated Exam Exam Vital Signs Date Time Temp Pulse Resp B/P (MAP) Pulse Ox O2 Delivery O2 Flow Rate FiO2 02/25/20 03:43 56 16 93 30 02/25/20 02:31 56 02/25/20 02:31 116/70 02/24/20 23:22 58 16 93 30 02/24/20 23:15 37.0 02/24/20 21:51 60 02/24/20 21:51 116/71 02/24/20 20:16 92 Mechanical Ventilator 30.00 02/24/20 19:23 56 16 99 35 02/24/20 19:00 55 02/24/20 19:00 55 15 107/69 99 Mechanical Ventilator 35.00 02/24/20 18:25 35.00 02/24/20 18:00 54 15 100/64 97 Mechanical Ventilator 45.00 02/24/20 17:00 54 15 108/66 96 Mechanical Ventilator 45.00 02/24/20 16:30 36.9 55 16 122/56 94 Mechanical Ventilator 50.00 02/24/20 16:29 55 112/69 02/24/20 16:09 36.9 02/24/20 16:00 57 16 114/70 57 Mechanical Ventilator 45.00 02/24/20 15:00 56 15 105/66 91 Mechanical Ventilator 45.00 02/24/20 14:37 55 16 94 45 02/24/20 14:28 55 16 94 45 02/24/20 14:00 56 15 111/69 91 Mechanical Ventilator 45.00 02/24/20 13:00 58 15 119/73 93 Mechanical Ventilator 45.00 02/24/20 12:55 59 02/24/20 12:03 37.4 02/24/20 12:00 58 56 105/69 93 Mechanical Ventilator 45.00 02/24/20 11:00 56 16 91/78 94 Mechanical Ventilator 45.00 02/24/20 10:42 57 16 95 45 02/24/20 10:38 57 16 95 45 02/24/20 10:00 56 16 131/65 89 Mechanical Ventilator 45.00 02/24/20 09:00 56 16 141/76 95 Mechanical Ventilator 45.00 02/24/20 08:40 89 45.00 02/24/20 08:37 92 Mechanical Ventilator 36.00 02/24/20 08:35 37.2 02/24/20 08:00 55 16 131/67 89 Mechanical Ventilator 36.00 02/24/20 07:19 55 16 90 36 02/24/20 07:09 53 16 90 36 02/24/20 07:00 53 17 125/90 91 Mechanical Ventilator 36.00 02/24/20 06:45 54 02/24/20 06:00 54 18 122/75 92 Mechanical Ventilator 36.00 02/24/20 05:05 58 02/24/20 05:05 126/77 02/24/20 05:00 55 17 125/80 92 Mechanical Ventilator 36.00 02/24/20 04:00 55 17 126/78 95 Mechanical Ventilator 36.00 I & O 02/25/20 07:00 Intake Total 640 ml Output Total 2725 ml Balance -2085 ml Height & Weight Height: 5'7.00" Weight: 220lbs. 0.0oz. 99.424084pz; 44.95 BMI Method:Stated General Appearance: Other (sedated on vent. ) HEENT: PERRL/EOMI Respiratory: Other (Intubated) Cardiovascular: Regular Rate, Rhythm, No Gallop, No JVD, No Murmur Capillary Refill: Less Than 3 Seconds Gastrointestinal: soft; No distended Extremity: Other (3+ significant edema going up to the hip and including the abdomen) Neurologic/Psychiatric: Other (sedated and intubated) Skin: Erythema Results Lab Laboratory Tests 02/24/20 02:01 02/25/20 02:22 Assessment/Plan Assessment/Plan Acute respiratory failure Influenza B positive with ARDS Pa02/Fi02 214 now - Hold sedation and will do weaning trail this AM. -Decrease PEEP to 5 -Propofol, Precedex. - Zosyn -Repeat sputum culture pending and PCT is higher -Tamiflu -Lasix BID 40mg -Intubated on admission 02/15 -Reintubated 02/16 secondary to self extubation -Change vent to AC 24/400/PEEP of 15 -Decrease PEEP to 5 -Repeat ABG in 1hr -Propofol and Fentanyl -CXR reviewed -Intubated 02/15 on admission - COVID is negative -Bilater dopplers - normal - Decadron -- D/C Pneumonia with probable pseudomonus and strep -Continue Zosyn Cellulitis -improved -Vanco, Zosyn started 02/16 -D/C Vanco 02/19 -Oswald cultures pending Hypotension -Improved -Monitor ARF with hyperphos -Start PhosLo -Monitor Hx of venous insuff CAD hx Chronic tobacco use STU CABAN DO Feb 25, 2020 03:54
[2020-02-25] MEDS: POTASSIUM CL 10MEQ/50ML IVPB 50 ML IV SCH ×8 (04:14→06:37)
[2020-02-25] MEDS: NOREPINEPHRINE 4 MG/250 ML 250 ML IV SCH ×4 (04:52→20:33)
[2020-02-25] MEDS: inSUlin ASPART (NovoLOG) 1 UNIT/0.01 ML (CHARGE PER UNIT) SC SCH ×4 (05:32→23:26)
[2020-02-25] MEDS: FUROSEMIDE 40 MG/4 ML INJ (LASIX) IVP SCH ×2 (05:32→16:18)
[2020-02-25] MEDS: KCL 20 MEQ TAB (K-DUR) PO SCH (05:32)
[2020-02-25] MEDS: MAGNESIUM 1 GM/100 ML IVPB 100 ML IV SCH (05:32)
[2020-02-25 06:39] VITALS: BP 116/75
--- NOTE | 2020-02-25 08:04 | Diagnostic Imaging Report ---
Clinical indications: Followup ventilator, respiratory failure. Patient influenza B positive. IC care management. Exam: Portable chest x-ray upright view. Comparisons: Portable chest x-ray dated 02/24/2020. Findings: Low lung volumes noted. There is slight improved aeration of the left lung base and right lung base region. There is residual bibasilar atelectasis versus infiltrate, left lung base atelectasis versus infiltrate. Suspected left pleural effusion again noted. Right IJ central line seen position. ET tube seen in good position, stable. Feeding tube seen with its distal portion overlying the expected region of the stomach. Cardiac silhouettes upper limits of normal for portable projection. Pulmonary vasculature is within normal limits. The remainder of this exam shows no significant interval change compared to the prior study of comparison. Impression: 1: There is slight improved aeration of both lung bases with residual bibasilar atelectasis and/or infiltrates. Small left pleural effusion noted. 2: Lines and tubes are again seen in good position as visualized. Dictated by: Dictated on workstation # [id number]
--- NOTE | 2020-02-25 08:05 | Physical Therapy Progress Note ---
Therapy Progress Note Patient remains sedated and intubated. PT will continue to follow patient status and initiate treatment when patient is medically stable and able to actively participate with skilled therapy. Per report, they will trial weaning off vent on this date. THOR DIAL PT Feb 25, 2020 08:05
[2020-02-25 08:25] LABS: ABG BASE EXCESS 7.5 MMOL/L (-2.5-2.5); ABG OXYGEN SATURATION 88 % (94-100); ABG PCO2 50 MMHG (35-45); ABG PH 7.42 (7.37-7.43); ABG PO2 67 MMHG (79-93); ABG TCO2 33.7 MMOL/L (21.0-31.0)
[2020-02-25 08:26] LABS: ALLENS TEST YES-POS
[2020-02-25 08:27] LABS: INSPIRED O2 30%; PATIENT TEMP 36.3; VENTILATOR YES
[2020-02-25] MEDS: CALCIUM ACETATE 667 MG CAP (PHOSLO) PO SCH ×3 (10:38→16:18)
[2020-02-25] MEDS: PIPERACILLIN/TAZOBACTAM (BULK) 4.5 GM in NS (IVPB) 100 ML IV SCH ×3 (10:38→23:32)
[2020-02-25] MEDS: LOSARTAN 25 MG (COZAAR) TAB PO SCH (10:39)
[2020-02-25] MEDS: meTOprolol TARTRATE 25 MG (LOPRESSOR) TABLET PO SCH ×2 (10:40→20:35)
[2020-02-25] MEDS: ARTIFICIAL TEARS OINT (LACRI-LUBE) 3.5 GM TUBE OU SCH ×3 (10:42→20:33)
[2020-02-25] MEDS: NYSTATIN CREAM (MYCOSTATIN) 30 GM TUBE TP SCH ×3 (10:42→20:34)
[2020-02-25 10:44] VITALS: BP 118/72
[2020-02-25] MEDS: ENOXAPARIN 300 MG/3 ML (LOVENOX) MULTI-DOSE VIAL SQ SCH ×2 (11:45→23:32)
--- NOTE | 2020-02-25 11:45 | Physical Therapy Progress Note ---
Therapy Progress Note PROM B U/LE all available planes. Assisted nursing and wound care nurse with clean up of copious large liquid stool with rolling left and right. TETO STINSON PT Feb 25, 2020 11:45
[2020-02-25] MEDS: PANTOPRAZOLE 40 MG (PROTONIX) VIAL IV SCH (11:50)
[2020-02-25 12:23] LABS: ABG BASE EXCESS 6.4 MMOL/L (-2.5-2.5); ABG OXYGEN SATURATION 84 % (94-100); ABG PCO2 54 MMHG (35-45); ABG PH 7.38 (7.37-7.43); ABG PO2 65 MMHG (79-93); ABG TCO2 33.1 MMOL/L (21.0-31.0)
[2020-02-25 12:24] LABS: ALLENS TEST YES-POS; INSPIRED O2 30%; VENTILATOR YES
[2020-02-25 12:25] LABS: PATIENT TEMP 36.8
[2020-02-25] MEDS: aCETylcysteine 20% (MUCOMYST) 30ML SOLN VIAL INH SCH (14:14)
[2020-02-25] MEDS: RT-ALBUTEROL/IPRATROPIUM 3 ML (DUONEB) VIAL INH SCH ×3 (14:15→22:10)
[2020-02-25 14:20] VITALS: BP 96/58
[2020-02-25] MEDS: ZINC OXIDE 16% OINT (BUTT PASTE) 57 GM TUBE TOP PRN (14:30)
--- NOTE | 2020-02-25 15:43 | NUR ---
During care rounds, plan of care was to possibly extubate the pt in the next few days. If pt fails extubation, would recommend restarting TF. Will continue to follow and reassess as pt needs, intake, and status change. Ivon Santana, MS RD LD
[2020-02-25 18:46] VITALS: BP 109/59
--- NOTE | 2020-02-25 20:17 | Cardiology Progress Note ---
Cardiology SOAP Progress Note Subjective: Intubated/ventilated. Objective: I&O/Vital Signs 03/02/20 03/02/20 03/02/20 03/02/20 04:00 04:05 07:00 07:53 Temp 36.5 Pulse 87 82 Resp 26 B/P (MAP) 146/91 Pulse Ox 99 96 O2 Delivery NIV Bilevel NIV Bilevel Vapotherm O2 Flow Rate 40.00 30.00 30.00 FiO2 50 03/02/20 03/02/20 03/02/20 03/02/20 08:17 08:46 09:45 11:28 Temp 36.8 Pulse 90 Resp 15 B/P (MAP) 157/95 Pulse Ox 97 93 92 O2 Delivery NIV Bilevel Vapotherm Vapotherm Vapotherm O2 Flow Rate 30.00 30.00 30.00 45.00 FiO2 45 45 03/02/20 03/02/20 03/02/20 12:17 12:19 15:07 Temp 36.6 Pulse 88 84 Resp 19 B/P (MAP) 124/75 Pulse Ox 92 92 O2 Delivery Vapotherm Vapotherm O2 Flow Rate 30.00 30.00 45.00 FiO2 45 03/02/20 00:00 Intake Total 425 ml Output Total 50 ml Balance 375 ml Weight (Pounds): 220 Weight (Ounces): 0.0 Weight (Calculated Kilograms): 99.227106 Constitutional: other (intubated/ventilated.) Respiratory: chest is bilaterally symmetric, lungs clear to auscultation Cardiovascular: regular rate-rhythm, S1 and S2 Gastrointestional: soft, audible bowel sounds Extremities: no lower extremity edema bilateral Neurologic/Psychiatric: other (intubated/ventilated) Skin: rash (Leg redness is improving per nurse) Results/Procedures: Labs Laboratory Tests 03/01/20 20:31: Glucometer 97 03/02/20 03:09: White Blood Count 6.8, Red Blood Count 3.85, Hemoglobin 9.6L, Hematocrit 35, Mean Corpuscular Volume 90, Mean Corpuscular Hemoglobin 25, Mean Corpuscular Hemoglobin Concent 28L, Red Cell Distribution Width 19.7H, Platelet Count 413H, Mean Platelet Volume 9.8, Immature Granulocyte % (Auto) 1, Neutrophils (%) (Auto) 66, Lymphocytes (%) (Auto) 18, Monocytes (%) (Auto) 11, Eosinophils (%) (Auto) 3, Basophils (%) (Auto) 1, Neutrophils # (Auto) 4.5, Lymphocytes # (Auto) 1.2, Monocytes # (Auto) 0.7, Eosinophils # (Auto) 0.2, Basophils # (Auto) 0.1, I mmature Granulocyte # (Auto) 0.1, Sodium Level 145, Potassium Level 3.4L, Chloride Level 104, Carbon Dioxide Level 28, Anion Gap 13, Blood Urea Nitrogen 14, Creatinine 0.72, Estimat Glomerular Filtration Rate > 60, BUN/Creatinine Ratio 19, Glucose Level 85, Calcium Level 8.6, Phosphorus Level 4.1, Magnesium Level 2.0 03/02/20 10:28: Glucometer 94 03/02/20 15:12: Glucometer 79 Microbiology 02/17/20 Blood Culture - Final, Complete No growth 02/17/20 Influenza Types A,B Antigen (THANG) - Final, Complete A/P: Assessment/Dx: Acute respiratory failure, Acute influenza infection, Plan: Assessment/Plan Acute respiratory failure, ventilator dependent, failed weaning yesterday, currently sedated, continue with diuresis Influenza B infection, managed by Dr. Hummel Congestive heart failure, acute left ventricular systolic dysfunction, nonischemic cardiomyopathy, probably stunned myocardium due to hypoxemia. Responding well to diuretics, continue to monitor Hypokalemia, replace and monitor Coronary artery disease, history of myocardial infarction in 2009 transferred to [facility] and had a stent to the circumflex artery. Repeat cardiac catheterization was carried out on February 18, 2020 showing patent stent in the circumflex artery otherwise mild coronary artery disease, non obstructive disease with severe cardiomyopathy and ejection fraction 25 percent and elevated left ventricular end-diastolic pressure, continue on diuretics for now Chronic pedal edema, continue with diuretics and monitor response Acute on chronic renal insufficiency, improved, continue to monitor Tobaccoism Thank you for your consultation. Please call me if you have any questions. Rayna Rangel MD, FACP, FACC, FSCAI, FHRS, CCDS Interventional Cardiology Cardiac Electrophysiology Vascular Medicine and Endovascular Interventions Scott RANGEL MD Feb 25, 2020 20:17
[2020-02-25] MEDS: POTASSIUM CHLORIDE INJ 20 MEQ in LACTATED RINGERS 1,000 ML IV SCH (20:41)
[2020-02-25 22:10] VITALS: BP 122/68
[2020-02-26 01:40] VITALS: BP 100/64
[2020-02-26] MEDS: RT-ALBUTEROL/IPRATROPIUM 3 ML (DUONEB) VIAL INH SCH ×6 (01:40→22:44)
[2020-02-26] MEDS: DexMEDEtomidine PRE MIX 100 ML IV SCH ×5 (02:33→21:15)
[2020-02-26 03:52] LABS: BASOPHILS % (AUTO) 0 % (0-10); EOSINOPHILS % (AUTO) 0 % (0-10); HEMATOCRIT 38 % (35-52); HEMOGLOBIN 10.9 g/dL (11.5-16.0); LYMPHOCYTES # (AUTO) 1.3 10^3/uL (1.0-4.0); LYMPHOCYTES % (AUTO) 13 % (12-44); MEAN CORPUSCULAR HEMOGLOBIN 25 pg (25-34); MEAN CORPUSCULAR HGB CONC 29 g/dL (32-36); MEAN CORPUSCULAR VOLUME 86 fL (80-99); MEAN PLATELET VOLUME 9.4 fL (9.0-12.2); MONOCYTES # (AUTO) 0.9 10^3/uL (0.0-1.0); MONOCYTES % (AUTO) 9 % (0-12); NEUTROPHILS # (AUTO) 7.6 10^3/uL (1.8-7.8); NEUTROPHILS % (AUTO) 77 % (42-75); PLATELET COUNT 265 10^3/uL (130-400); WHITE BLOOD COUNT 9.9 10^3/uL (4.3-11.0)
[2020-02-26 04:06] LABS: CHLORIDE 99 MMOL/L (98-107); POTASSIUM 3.7 MMOL/L (3.6-5.0); SODIUM 141 MMOL/L (135-145)
[2020-02-26 04:06] LABS: ABG OXYGEN SATURATION 92 % (94-100); ABG PCO2 45 MMHG (35-45); ABG PH 7.45 (7.37-7.43); ABG PO2 68 MMHG (79-93); ABG TCO2 32.8 MMOL/L (21.0-31.0)
[2020-02-26 04:07] LABS: CALCIUM 8.5 MG/DL (8.5-10.1)
[2020-02-26 04:08] LABS: GLUCOSE 107 MG/DL (70-105); TRIGLYCERIDES 188 MG/DL (<150)
[2020-02-26 04:08] LABS: ALLENS TEST POSITIVE; INSPIRED O2 30; PATIENT TEMP 36; VENTILATOR YES
[2020-02-26 04:09] LABS: CARBON DIOXIDE 29 MMOL/L (21-32)
[2020-02-26 04:11] LABS: CREATININE SERUM 0.89 MG/DL (0.60-1.30); GFR ESTIMATED > 60; PHOSPHORUS 4.5 MG/DL (2.3-4.7)
[2020-02-26 04:12] LABS: BUN/CREATININE RATIO 18
[2020-02-26 04:14] LABS: MAGNESIUM 1.7 MG/DL (1.6-2.4)
--- NOTE | 2020-02-26 04:22 | Pulmonary Progress Note ---
Subjective Time Seen by a Provider: 04:16 Subjective/Events-last exam Pt is sedated on vent. Sepsis Event Evaluation Height, Weight, BMI Height: 5'7.00" Weight: 220lbs. 0.0oz. 99.187466qc; 44.95 BMI Method:Stated Exam Exam Vital Signs Date Time Temp Pulse Resp B/P (MAP) Pulse Ox O2 Delivery O2 Flow Rate FiO2 02/26/20 02:33 36.2 69 18 100/64 97 Mechanical Ventilator 30.00 02/26/20 02:00 72 18 111/68 96 Mechanical Ventilator 30.00 02/26/20 01:40 69 18 97 30 02/26/20 01:00 69 18 111/64 97 Mechanical Ventilator 30.00 02/26/20 01:00 68 02/26/20 00:00 71 18 107/64 96 Mechanical Ventilator 30.00 02/25/20 23:48 36.2 Mechanical Ventilator 30.00 02/25/20 23:26 68 122/68 02/25/20 23:00 74 18 115/63 95 Mechanical Ventilator 30.00 02/25/20 22:10 68 18 96 30 02/25/20 22:00 68 18 122/68 95 Mechanical Ventilator 30.00 02/25/20 21:00 68 17 109/59 95 Mechanical Ventilator 30.00 02/25/20 20:33 71 18 124/66 95 Mechanical Ventilator 30.00 02/25/20 20:00 35.6 02/25/20 20:00 72 18 109/60 95 Mechanical Ventilator 30.00 02/25/20 19:00 74 17 107/58 95 Mechanical Ventilator 30.00 02/25/20 19:00 74 02/25/20 18:46 71 18 98 30 02/25/20 18:00 68 18 114/60 95 Mechanical Ventilator 35.00 02/25/20 17:11 73 110/60 02/25/20 17:00 70 18 110/60 96 Mechanical Ventilator 35.00 02/25/20 16:00 72 18 110/60 97 Mechanical Ventilator 35.00 02/25/20 16:00 36.0 02/25/20 15:52 71 18 112/59 97 Mechanical Ventilator 30.00 02/25/20 15:00 76 18 99/59 97 Mechanical Ventilator 35.00 02/25/20 14:20 72 18 96 30 02/25/20 14:00 79 20 91/56 92 Mechanical Ventilator 35.00 02/25/20 13:00 104 28 100/59 95 Mechanical Ventilator 35.00 02/25/20 13:00 98 02/25/20 12:00 112 28 112/65 96 Mechanical Ventilator 35.00 02/25/20 12:00 37.1 02/25/20 11:00 124 27 126/57 93 Mechanical Ventilator 35.00 02/25/20 10:44 99 37 92 30 02/25/20 10:00 105 141/80 97 Mechanical Ventilator 35.00 02/25/20 09:00 92 35 131/84 97 Mechanical Ventilator 35.00 02/25/20 09:00 94 Mechanical Ventilator 30.00 02/25/20 08:00 89 37 125/77 Mechanical Ventilator 35.00 02/25/20 07:00 98 02/25/20 07:00 73 25 117/76 96 Mechanical Ventilator 35.00 02/25/20 06:39 71 16 92 30 02/25/20 06:00 65 16 113/75 96 Mechanical Ventilator 35.00 02/25/20 05:00 54 15 112/74 93 Mechanical Ventilator 35.00 I & O 02/26/20 07:00 Intake Total 1340 ml Output Total 1575 ml Balance -235 ml Height & Weight Height: 5'7.00" Weight: 220lbs. 0.0oz. 99.638664yh; 44.95 BMI Method:Stated General Appearance: Other (sedated on vent. ) HEENT: PERRL/EOMI Respiratory: Other (Intubated) Cardiovascular: Regular Rate, Rhythm, No Gallop, No JVD, No Murmur Capillary Refill: Less Than 3 Seconds Gastrointestinal: soft; No distended Extremity: Other (3+ significant edema going up to the hip and including the abdomen) Neurologic/Psychiatric: Other (sedated and intubated) Skin: Erythema Results Lab Laboratory Tests 02/25/20 02:22 02/26/20 03:40 Assessment/Plan Assessment/Plan Acute respiratory failure Influenza B positive with ARDS Pa02/Fi02 214 now - Will do another weaning trial today. Pt failed weaning yesterday - PEEP 5 -Propofol and add Precedex. - Zosyn -Repeat sputum culture pending and PCT is higher -Tamiflu -Lasix BID 40mg -Intubated on admission 02/15 -Reintubated 02/16 secondary to self extubation -Change vent to AC 24/400/PEEP of 15 -Decrease PEEP to 5 -Repeat ABG in 1hr -Propofol and Fentanyl -CXR reviewed -Intubated 02/15 on admission - COVID is negative -Bilater dopplers - normal - Decadron -- D/C Pneumonia with probable pseudomonus and strep -Continue Zosyn Cellulitis -improved -Vanco, Zosyn started 02/16 -D/C Vanco 02/19 -Oswald cultures pending Hypotension -Improved -Monitor ARF with hyperphos -Start PhosLo -Monitor Hx of venous insuff CAD hx Chronic tobacco use STU CABAN DO Feb 26, 2020 04:21
[2020-02-26] MEDS: NOREPINEPHRINE 4 MG/250 ML 250 ML IV SCH ×5 (04:30→20:26)
[2020-02-26] MEDS: inSUlin ASPART (NovoLOG) 1 UNIT/0.01 ML (CHARGE PER UNIT) SC SCH ×4 (06:54→23:55)
[2020-02-26] MEDS: MAGNESIUM 1 GM/100 ML IVPB 100 ML IV SCH (06:54)
[2020-02-26] MEDS: POTASSIUM CL 10MEQ/50ML IVPB 50 ML IV SCH (06:54)
[2020-02-26] MEDS: KCL 20 MEQ TAB (K-DUR) PO SCH (06:54)
[2020-02-26] MEDS: aCETylcysteine 20% (MUCOMYST) 30ML SOLN VIAL INH SCH ×3 (08:41→22:48)
[2020-02-26 08:42] VITALS: BP 140/88
[2020-02-26] MEDS: NYSTATIN CREAM (MYCOSTATIN) 30 GM TUBE TP SCH ×3 (08:45→20:26)
[2020-02-26] MEDS: FUROSEMIDE 40 MG/4 ML INJ (LASIX) IVP SCH ×2 (08:47→18:42)
[2020-02-26] MEDS: PANTOPRAZOLE 40 MG (PROTONIX) VIAL IV SCH (08:47)
[2020-02-26] MEDS: ARTIFICIAL TEARS OINT (LACRI-LUBE) 3.5 GM TUBE OU SCH ×3 (08:47→20:26)
[2020-02-26] MEDS: meTOprolol TARTRATE 25 MG (LOPRESSOR) TABLET PO SCH ×2 (08:48→20:26)
[2020-02-26] MEDS: LOSARTAN 25 MG (COZAAR) TAB PO SCH (08:48)
[2020-02-26] MEDS: CALCIUM ACETATE 667 MG CAP (PHOSLO) PO SCH ×3 (08:48→18:42)
[2020-02-26] MEDS: PIPERACILLIN/TAZOBACTAM (BULK) 4.5 GM in NS (IVPB) 100 ML IV SCH ×2 (08:48→18:39)
--- NOTE | 2020-02-26 10:02 | Diagnostic Imaging Report ---
INDICATION: Respiratory failure COMPARISON: 02/25/2020 FINDINGS: IJ is at the SVC ET tube mid trachea OG catheter is passed into the stomach. There is mild central vascular prominence and perihilar pulmonary opacities having improved. No effusion or pneumothorax. IMPRESSION: Improvements in perihilar congestion. Stable support apparatus. No adverse change. Dictated by: Dictated on workstation # [id number]
[2020-02-26] MEDS: PROPOFOL DRIP (ICU) 100 ML IV SCH ×3 (10:25→21:39)
--- NOTE | 2020-02-26 11:05 | Physical Therapy Progress Note ---
Therapy Progress Note Patient intubated. Will continue to follow. GRACIELA BENITEZ PT Feb 26, 2020 11:05
[2020-02-26 13:22] LABS: ABG BASE EXCESS 8.1 MMOL/L (-2.5-2.5); ABG OXYGEN SATURATION 87 % (94-100); ABG PCO2 54 MMHG (35-45); ABG PO2 66 MMHG (79-93); ABG TCO2 34.6 MMOL/L (21.0-31.0)
[2020-02-26 13:24] LABS: ALLENS TEST POSITIVE; INSPIRED O2 30%; PATIENT TEMP 37.1; VENTILATOR YES
[2020-02-26 14:13] VITALS: BP 102/65
[2020-02-26] MEDS: ENOXAPARIN 300 MG/3 ML (LOVENOX) MULTI-DOSE VIAL SQ SCH (14:22)
[2020-02-26 18:27] VITALS: BP 155/86
[2020-02-26 22:40] VITALS: BP 159/92
[2020-02-27] MEDS: ENOXAPARIN 300 MG/3 ML (LOVENOX) MULTI-DOSE VIAL SQ SCH ×3 (00:01→23:14)
[2020-02-27] MEDS: DexMEDEtomidine PRE MIX 100 ML IV SCH ×8 (00:40→23:39)
[2020-02-27] MEDS: NOREPINEPHRINE 4 MG/250 ML 250 ML IV SCH ×5 (00:50→22:16)
[2020-02-27] MEDS: PROPOFOL DRIP (ICU) 100 ML IV SCH ×7 (01:37→23:38)
[2020-02-27 02:14] VITALS: BP 136/81
[2020-02-27] MEDS: RT-ALBUTEROL/IPRATROPIUM 3 ML (DUONEB) VIAL INH SCH ×6 (02:14→22:07)
[2020-02-27] MEDS: aCETylcysteine 20% (MUCOMYST) 30ML SOLN VIAL INH SCH ×4 (02:14→18:59)
[2020-02-27 03:17] LABS: ABG BASE EXCESS 8.6 MMOL/L (-2.5-2.5); ABG OXYGEN SATURATION 91 % (94-100); ABG PCO2 46 MMHG (35-45); ABG PH 7.47 (7.37-7.43); ABG PO2 64 MMHG (79-93); ABG TCO2 34.2 MMOL/L (21.0-31.0); ALLENS TEST POSITIVE; INSPIRED O2 30
[2020-02-27 03:18] LABS: PATIENT TEMP 36.7; VENTILATOR YES
[2020-02-27 03:20] LABS: BASOPHILS % (AUTO) 0 % (0-10); EOSINOPHILS # (AUTO) 0.1 10^3/uL (0.0-0.3); EOSINOPHILS % (AUTO) 1 % (0-10); HEMATOCRIT 37 % (35-52); HEMOGLOBIN 10.8 g/dL (11.5-16.0); LYMPHOCYTES # (AUTO) 1.2 10^3/uL (1.0-4.0); LYMPHOCYTES % (AUTO) 11 % (12-44); MEAN CORPUSCULAR HEMOGLOBIN 25 pg (25-34); MEAN CORPUSCULAR HGB CONC 30 g/dL (32-36); MEAN CORPUSCULAR VOLUME 85 fL (80-99); MEAN PLATELET VOLUME 9.9 fL (9.0-12.2); MONOCYTES # (AUTO) 0.8 10^3/uL (0.0-1.0); MONOCYTES % (AUTO) 7 % (0-12); NEUTROPHILS # (AUTO) 8.7 10^3/uL (1.8-7.8); NEUTROPHILS % (AUTO) 80 % (42-75); PLATELET COUNT 293 10^3/uL (130-400); WHITE BLOOD COUNT 10.8 10^3/uL (4.3-11.0)
[2020-02-27 03:28] LABS: CHLORIDE 98 MMOL/L (98-107); POTASSIUM 3.2 MMOL/L (3.6-5.0); SODIUM 141 MMOL/L (135-145)
[2020-02-27 03:29] LABS: CALCIUM 8.5 MG/DL (8.5-10.1)
[2020-02-27 03:30] LABS: GLUCOSE 122 MG/DL (70-105)
[2020-02-27 03:31] LABS: CARBON DIOXIDE 30 MMOL/L (21-32)
[2020-02-27 03:33] LABS: PHOSPHORUS 4.1 MG/DL (2.3-4.7)
[2020-02-27 03:34] LABS: CREATININE SERUM 0.85 MG/DL (0.60-1.30); GFR ESTIMATED > 60
[2020-02-27 03:35] LABS: BUN/CREATININE RATIO 15
[2020-02-27 03:36] LABS: MAGNESIUM 1.6 MG/DL (1.6-2.4)
[2020-02-27] MEDS: POTASSIUM CL 10MEQ/50ML IVPB 50 ML IV SCH ×7 (03:47→07:14)
[2020-02-27] MEDS: MAGNESIUM 1 GM/100 ML IVPB 100 ML IV SCH ×3 (03:48→04:56)
[2020-02-27] MEDS: inSUlin ASPART (NovoLOG) 1 UNIT/0.01 ML (CHARGE PER UNIT) SC SCH ×4 (03:48→23:17)
[2020-02-27] MEDS: KCL 20 MEQ TAB (K-DUR) PO SCH (03:48)
--- NOTE | 2020-02-27 05:11 | Pulmonary Progress Note ---
Subjective Time Seen by a Provider: 05:06 Subjective/Events-last exam Pt is sedated on vent. Sepsis Event Evaluation Height, Weight, BMI Height: 5'7.00" Weight: 220lbs. 0.0oz. 99.182256pu; 44.95 BMI Method:Stated Exam Exam Vital Signs Date Time Temp Pulse Resp B/P (MAP) Pulse Ox O2 Delivery O2 Flow Rate FiO2 02/27/20 05:03 84 02/27/20 04:58 Mechanical Ventilator 25.00 02/27/20 04:00 70 18 135/79 95 Mechanical Ventilator 30.00 02/27/20 03:32 36.0 02/27/20 03:29 87 02/27/20 03:00 71 20 132/81 95 Mechanical Ventilator 30.00 02/27/20 02:14 70 18 95 30 02/27/20 02:00 70 17 136/81 96 Mechanical Ventilator 30.00 02/27/20 01:37 157/88 02/27/20 01:00 72 18 157/88 95 Mechanical Ventilator 30.00 02/27/20 01:00 72 02/27/20 00:40 86 02/27/20 00:00 73 18 155/83 94 Mechanical Ventilator 30.00 02/26/20 23:24 36.2 02/26/20 23:00 72 19 154/87 94 Mechanical Ventilator 30.00 02/26/20 22:40 71 18 93 30 02/26/20 22:00 70 17 159/92 95 Mechanical Ventilator 30.00 02/26/20 21:39 142/86 02/26/20 21:20 94 Mechanical Ventilator 30.00 02/26/20 21:17 Mechanical Ventilator 30.00 02/26/20 21:15 87 02/26/20 21:00 74 19 142/86 94 Mechanical Ventilator 30.00 02/26/20 20:04 36.7 02/26/20 20:00 77 18 154/88 94 Mechanical Ventilator 30.00 02/26/20 19:00 81 18 153/86 93 Mechanical Ventilator 30.00 02/26/20 19:00 81 02/26/20 18:39 82 155/86 02/26/20 18:39 82 02/26/20 18:27 82 18 92 30 02/26/20 18:00 83 18 155/86 91 Mechanical Ventilator 30.00 02/26/20 17:46 84 147/83 02/26/20 17:00 86 20 147/83 96 Mechanical Ventilator 30.00 02/26/20 16:20 36.6 02/26/20 16:00 80 20 127/72 95 Mechanical Ventilator 30.00 02/26/20 15:00 74 19 92/68 95 Mechanical Ventilator 30.00 02/26/20 14:17 37.2 81 20 102/65 95 Mechanical Ventilator 30.00 02/26/20 14:13 82 22 94 30 02/26/20 14:00 96 25 102/65 95 Mechanical Ventilator 30.00 02/26/20 13:00 79 20 106/63 95 Mechanical Ventilator 30.00 02/26/20 12:39 70 02/26/20 12:36 36.5 02/26/20 12:00 72 20 120/69 98 Mechanical Ventilator 30.00 02/26/20 11:00 66 18 125/73 98 Mechanical Ventilator 30.00 02/26/20 10:25 69 122/69 02/26/20 10:00 68 18 122/69 97 Mechanical Ventilator 30.00 02/26/20 09:00 73 21 119/69 97 Mechanical Ventilator 30.00 02/26/20 09:00 96 Mechanical Ventilator 30.00 02/26/20 08:45 37.1 73 18 140/88 98 Mechanical Ventilator 30.00 02/26/20 08:42 74 21 97 30 02/26/20 08:00 65 123/74 97 Mechanical Ventilator 30.00 02/26/20 07:00 69 119/73 96 Mechanical Ventilator 30.00 02/26/20 07:00 67 02/26/20 06:00 68 18 117/66 93 Mechanical Ventilator 30.00 I & O 02/27/20 07:00 Intake Total 800 ml Output Total 3125 ml Balance -2325 ml Height & Weight Height: 5'7.00" Weight: 220lbs. 0.0oz. 99.349119ze; 44.95 BMI Method:Stated General Appearance: Other (sedated on vent. ) HEENT: PERRL/EOMI Respiratory: Other (Intubated) Cardiovascular: Regular Rate, Rhythm, No Gallop, No JVD, No Murmur Capillary Refill: Less Than 3 Seconds Gastrointestinal: soft; No distended Extremity: Other (3+ significant edema going up to the hip and including the abdomen) Neurologic/Psychiatric: Other (sedated and intubated) Skin: Erythema Results Lab Laboratory Tests 02/26/20 03:40 02/27/20 03:03 Assessment/Plan Assessment/Plan Acute respiratory failure Influenza B positive with ARDS Pa02/Fi02 214 now - Will do another weaning trial today. Pt failed weaning yesterday - PEEP 5 -Propofol and add Precedex. - Zosyn -Repeat sputum culture pending and PCT is higher -Tamiflu -Lasix BID 40mg -Intubated on admission 02/15 -Reintubated 02/16 secondary to self extubation -Change vent to AC 24/400/PEEP of 15 -Decrease PEEP to 5 -Repeat ABG in 1hr -Propofol and Fentanyl -CXR reviewed -Intubated 02/15 on admission - COVID is negative -Bilater dopplers - normal - Decadron -- D/C Pneumonia with probable pseudomonus and strep -Continue Zosyn Cellulitis -improved -Vanco, Zosyn started 02/16 -D/C Vanco 02/19 -Oswald cultures pending Hypotension -Improved -Monitor ARF with hyperphos -Start PhosLo -Monitor Hx of venous insuff CAD hx Chronic tobacco use STU CABAN DO Feb 27, 2020 05:10
[2020-02-27] MEDS: POTASSIUM CHLORIDE INJ 20 MEQ in LACTATED RINGERS 1,000 ML IV SCH (05:31)
[2020-02-27] MEDS: FUROSEMIDE 40 MG/4 ML INJ (LASIX) IVP SCH ×2 (06:15→17:04)
[2020-02-27] MEDS: meTOprolol TARTRATE 25 MG (LOPRESSOR) TABLET PO SCH ×2 (07:54→19:34)
[2020-02-27] MEDS: CALCIUM ACETATE 667 MG CAP (PHOSLO) PO SCH ×3 (07:54→17:04)
[2020-02-27] MEDS: LOSARTAN 25 MG (COZAAR) TAB PO SCH (07:54)
[2020-02-27] MEDS: PANTOPRAZOLE 40 MG (PROTONIX) VIAL IV SCH (07:55)
[2020-02-27] MEDS: ARTIFICIAL TEARS OINT (LACRI-LUBE) 3.5 GM TUBE OU SCH ×3 (07:56→19:35)
[2020-02-27] MEDS: NYSTATIN CREAM (MYCOSTATIN) 30 GM TUBE TP SCH ×3 (07:56→19:35)
[2020-02-27 08:22] VITALS: BP 103/65
--- NOTE | 2020-02-27 09:58 | Diagnostic Imaging Report ---
EXAMINATION: Chest radiograph, portable AP view. DATE: 02/27/2020 3:48 AM hours. INDICATION: 55-year-old female, respiratory failure. COMPARISON: February 26, 2020. FINDINGS: The endotracheal tube is approximately 5.9 cm above the kiko. The nasogastric tube is in the stomach. The right internal jugular central venous line tip overlies the mid SVC. Heart size and mediastinal contours are unchanged. There is no identified pneumothorax. Lung volumes are somewhat low. There are streaky opacities in the lung bases. IMPRESSION: 1. Somewhat low lung volumes with streaky opacities in the lung bases similar in appearance to a comparison exam. 2. Support lines and tubes, as above. Dictated by: Dictated on workstation # [id number]
[2020-02-27 12:00] VITALS: BP 136/79
[2020-02-27 15:03] VITALS: BP 129/66
[2020-02-27 18:50] VITALS: BP 138/74
[2020-02-27 22:07] VITALS: BP 117/76
[2020-02-28 02:12] VITALS: BP 120/66
[2020-02-28] MEDS: RT-ALBUTEROL/IPRATROPIUM 3 ML (DUONEB) VIAL INH SCH ×6 (02:12→22:49)
[2020-02-28] MEDS: aCETylcysteine 20% (MUCOMYST) 30ML SOLN VIAL INH SCH (02:12)
[2020-02-28 02:20] LABS: ABG BASE EXCESS 8.1 MMOL/L (-2.5-2.5); ABG OXYGEN SATURATION 89 % (94-100); ABG PCO2 47 MMHG (35-45); ABG PH 7.45 (7.37-7.43); ABG PO2 64 MMHG (79-93); ABG TCO2 33.8 MMOL/L (21.0-31.0)
[2020-02-28 02:21] LABS: ALLENS TEST POSITIVE; INSPIRED O2 30; PATIENT TEMP 37; VENTILATOR YES
[2020-02-28 02:24] LABS: BASOPHILS % (AUTO) 0 % (0-10); CHLORIDE 97 MMOL/L (98-107); EOSINOPHILS # (AUTO) 0.1 10^3/uL (0.0-0.3); EOSINOPHILS % (AUTO) 1 % (0-10); HEMATOCRIT 36 % (35-52); HEMOGLOBIN 10.4 g/dL (11.5-16.0); LYMPHOCYTES # (AUTO) 1.4 10^3/uL (1.0-4.0); LYMPHOCYTES % (AUTO) 15 % (12-44); MEAN CORPUSCULAR HEMOGLOBIN 25 pg (25-34); MEAN CORPUSCULAR HGB CONC 29 g/dL (32-36); MEAN CORPUSCULAR VOLUME 84 fL (80-99); MEAN PLATELET VOLUME 10.4 fL (9.0-12.2); MONOCYTES # (AUTO) 0.7 10^3/uL (0.0-1.0); MONOCYTES % (AUTO) 7 % (0-12); NEUTROPHILS # (AUTO) 7.7 10^3/uL (1.8-7.8); NEUTROPHILS % (AUTO) 77 % (42-75); PLATELET COUNT 337 10^3/uL (130-400); POTASSIUM 3.3 MMOL/L (3.6-5.0); SODIUM 140 MMOL/L (135-145); WHITE BLOOD COUNT 9.9 10^3/uL (4.3-11.0)
[2020-02-28 02:25] LABS: CALCIUM 8.7 MG/DL (8.5-10.1)
[2020-02-28 02:26] LABS: GLUCOSE 108 MG/DL (70-105)
[2020-02-28 02:27] LABS: CARBON DIOXIDE 28 MMOL/L (21-32)
[2020-02-28 02:30] LABS: CREATININE SERUM 0.84 MG/DL (0.60-1.30); GFR ESTIMATED > 60
[2020-02-28 02:31] LABS: BUN/CREATININE RATIO 12
[2020-02-28 02:33] LABS: MAGNESIUM 1.9 MG/DL (1.6-2.4)
[2020-02-28] MEDS: MAGNESIUM 1 GM/100 ML IVPB 100 ML IV SCH (02:41)
[2020-02-28] MEDS: KCL 20 MEQ TAB (K-DUR) PO SCH (02:41)
[2020-02-28] MEDS: POTASSIUM CL 10MEQ/50ML IVPB 50 ML IV SCH ×9 (02:41→09:30)
[2020-02-28] MEDS: NOREPINEPHRINE 4 MG/250 ML 250 ML IV SCH ×5 (02:41→21:56)
[2020-02-28] MEDS: DexMEDEtomidine PRE MIX 100 ML IV SCH (03:59)
--- NOTE | 2020-02-28 04:42 | Pulmonary Progress Note ---
Subjective Time Seen by a Provider: 04:37 Subjective/Events-last exam Sedation is off. Sepsis Event Evaluation Height, Weight, BMI Height: 5'7.00" Weight: 220lbs. 0.0oz. 99.995563zc; 44.95 BMI Method:Stated Exam Exam Vital Signs Date Time Temp Pulse Resp B/P (MAP) Pulse Ox O2 Delivery O2 Flow Rate FiO2 02/28/20 03:59 76 02/28/20 03:00 74 25 106/75 94 Mechanical Ventilator 30.00 02/28/20 02:12 71 20 95 30 02/28/20 02:00 70 21 125/70 95 Mechanical Ventilator 30.00 02/28/20 01:00 72 20 133/73 96 Mechanical Ventilator 30.00 02/28/20 01:00 74 02/28/20 00:00 75 21 139/77 95 Mechanical Ventilator 30.00 02/27/20 23:39 78 02/27/20 23:38 144/85 02/27/20 23:15 37.0 02/27/20 23:00 77 21 138/77 94 Mechanical Ventilator 30.00 02/27/20 22:07 74 20 94 30 02/27/20 22:00 73 21 141/80 95 Mechanical Ventilator 30.00 02/27/20 21:00 75 29 141/80 95 Mechanical Ventilator 30.00 02/27/20 20:22 143/80 02/27/20 20:21 75 02/27/20 20:12 94 Mechanical Ventilator 30.00 02/27/20 20:00 75 20 147/79 94 Mechanical Ventilator 30.00 02/27/20 19:39 37.3 Mechanical Ventilator 30.00 02/27/20 19:00 72 21 137/85 94 Mechanical Ventilator 30.00 02/27/20 19:00 73 02/27/20 18:50 73 20 94 30 02/27/20 18:00 73 19 140/74 93 Mechanical Ventilator 30.00 02/27/20 17:45 75 140/74 02/27/20 17:40 36.6 75 18 140/74 95 Mechanical Ventilator 30.00 02/27/20 17:00 75 18 140/74 95 Mechanical Ventilator 30.00 02/27/20 16:00 80 22 140/74 94 Mechanical Ventilator 30.00 02/27/20 15:03 81 19 98 30 02/27/20 15:00 81 26 130/69 93 Mechanical Ventilator 30.00 02/27/20 14:36 36.6 77 22 136/79 96 Mechanical Ventilator 30.00 02/27/20 14:35 77 136/79 02/27/20 14:00 75 22 134/72 96 Mechanical Ventilator 30.00 02/27/20 13:00 77 21 149/81 96 Mechanical Ventilator 30.00 02/27/20 13:00 77 02/27/20 12:00 75 22 96 30 02/27/20 12:00 74 21 135/76 96 Mechanical Ventilator 30.00 02/27/20 11:40 36.6 75 22 121/72 93 Mechanical Ventilator 30.00 02/27/20 11:40 75 121/72 02/27/20 11:04 36.6 02/27/20 11:00 75 22 121/72 93 Mechanical Ventilator 30.00 02/27/20 10:00 73 20 118/70 92 Mechanical Ventilator 30.00 02/27/20 09:00 80 21 129/72 96 Mechanical Ventilator 30.00 02/27/20 08:22 70 19 98 30 02/27/20 08:12 94 Mechanical Ventilator 30.00 02/27/20 08:00 72 11 103/65 94 Mechanical Ventilator 30.00 02/27/20 07:46 36.6 02/27/20 07:00 72 02/27/20 07:00 72 21 112/69 95 Mechanical Ventilator 30.00 02/27/20 06:18 Mechanical Ventilator 30.00 02/27/20 06:16 88 02/27/20 06:15 88 02/27/20 06:00 71 21 111/66 93 Mechanical Ventilator 25.00 02/27/20 05:03 84 02/27/20 05:00 70 19 113/70 93 Mechanical Ventilator 25.00 02/27/20 04:58 Mechanical Ventilator 25.00 I & O 02/28/20 07:00 Intake Total 1455 ml Output Total 3450 ml Balance -1995 ml Height & Weight Height: 5'7.00" Weight: 220lbs. 0.0oz. 99.142070ou; 44.95 BMI Method:Stated General Appearance: Other (sedated on vent. ) HEENT: PERRL/EOMI Respiratory: Other (Intubated) Cardiovascular: Regular Rate, Rhythm, No Gallop, No JVD, No Murmur Capillary Refill: Less Than 3 Seconds Gastrointestinal: soft; No distended Extremity: Other (3+ significant edema going up to the hip and including the abdomen) Neurologic/Psychiatric: Other (sedated and intubated) Skin: Erythema Results Lab Laboratory Tests 02/27/20 03:03 02/28/20 01:59 Assessment/Plan Assessment/Plan Acute respiratory failure Influenza B positive with ARDS Pa02/Fi02 214 now - Will continue to wean . Pt failed weaning yesterday - PEEP 5 -Propofol and add Precedex. - Zosyn -Repeat sputum culture pending and PCT is higher -Tamiflu -Lasix BID 40mg -Intubated on admission 02/15 -Reintubated 02/16 secondary to self extubation -Change vent to AC 24/400/PEEP of 15 -Decrease PEEP to 5 -Propofol and Fentanyl -CXR reviewed -Intubated 02/15 on admission - COVID is negative -Bilater dopplers - normal - Decadron -- D/C Pneumonia with probable pseudomonus and strep -Continue Zosyn for total of 14 days. -Zosyn auto stopped will reorder. Pt has had copious amounts of sputum production and had pseudomonus in sputum. Cellulitis -improved -Vanco, Zosyn started 02/16 -D/C Vanco 02/19 -Oswald cultures pending Hypotension -Improved -Monitor Hypokalemia -replace ARF with hyperphos -Start PhosLo -Monitor Hx of venous insuff CAD hx Chronic tobacco use STU CABAN DO Feb 28, 2020 04:42
[2020-02-28] MEDS ORDERED: NS (IVPB) 100 ML ONE (05:06)
[2020-02-28] MEDS ORDERED: PIPERACILLIN/TAZO 4.5 GM VIAL (ZOSYN) IV ONE (05:06)
[2020-02-28] MEDS: PIPERACILLIN/TAZOBACTAM (BULK) 4.5 GM in NS (IVPB) 100 ML IV SCH ×3 (05:11→21:55)
[2020-02-28] MEDS: inSUlin ASPART (NovoLOG) 1 UNIT/0.01 ML (CHARGE PER UNIT) SC SCH ×3 (05:11→17:56)
[2020-02-28] MEDS: POTASSIUM CHLORIDE INJ 20 MEQ in LACTATED RINGERS 1,000 ML IV SCH ×2 (05:12→14:50)
--- NOTE | 2020-02-28 05:44 | NUR ---
rt at bedside. pt extubated and placed on vapotherm at this time per dr jones Addendum: 02/28/20 at 0554 by ITZEL CARRASCO RN restraints also removed at this time.
[2020-02-28] MEDS ORDERED: aCETylcysteine 20% (MUCOMYST) 30ML SOLN VIAL INH PRN (06:30)
--- NOTE | 2020-02-28 06:52 | Diagnostic Imaging Report ---
Indication: Influenza, intubated Comparison: 02/27/2020 Findings: Single view of the chest demonstrates stable support devices. The tip of the NG tube is not well demonstrated due to patient body habitus. There is bibasilar atelectasis with small effusions. The heart is prominent without overt pulmonary edema. No pneumothorax is seen. Impression: 1. Limited examination. 2. Bibasilar atelectasis with small effusions. Dictated by: Dictated on workstation # [id number]
--- NOTE | 2020-02-28 08:18 | Speech Therapy Progress Note ---
Therapy Progress Note ST received orders for Bedside Dysphagia Evaluation. The patient was unable to follow directions as reported by nursing. ST will follow up at a later time. KLEVER JOHANSEN Feb 28, 2020 08:18
--- NOTE | 2020-02-28 09:06 | Progress Note ---
Subjective Subjective/Events-last exam Pt extubated this morning, is mumbling and difficult to understand, but able to state name and that she is in the hospital. Objective Exam Last Set of Vital Signs Vital Signs Date Time Temp Pulse Resp B/P (MAP) Pulse Ox O2 Delivery O2 Flow Rate FiO2 02/28/20 08:20 Vapotherm 40.00 30.00 02/28/20 08:14 93 25 02/28/20 06:00 93 20 120/76 02/27/20 23:15 37.0 Capillary Refill : Less Than 3 Seconds I&O Intake and Output 02/28/20 00:00 Intake Total 2865 ml Output Total 3800 ml Balance -935 ml Intake Oral 0 ml IV Total 2610 ml Other 255 ml Output Urine Total 3800 ml General: Alert, Mild Distress Lungs: Other (ronchi) Heart: No Murmurs, Other (tachycardia) Abdomen: Normal Bowel Sounds, Soft Extremities: Other (1+ pitting edema) Results/Procedures Lab Laboratory Tests 02/27/20 11:03: Glucometer 113H 02/27/20 17:38: Glucometer 113H 02/27/20 23:17: Glucometer 101 02/28/20 01:59: White Blood Count 9.9, Red Blood Count 4.22, Hemoglobin 10.4L, Hematocrit 36, Mean Corpuscular Volume 84, Mean Corpuscular Hemoglobin 25, Mean Corpuscular Hemoglobin Concent 29L, Red Cell Distribution Width 19.5H, Platelet Count 337, Mean Platelet Volume 10.4, Immature Granulocyte % (Auto) 0, Neutrophils (%) (Auto) 77H, Lymphocytes (%) (Auto) 15, Monocytes (%) (Auto) 7, Eosinophils (%) (Auto) 1, Basophils (%) (Auto) 0, Neutrophils # (Auto) 7.7, Lymphocytes # (Auto) 1.4, Monocytes # (Auto) 0.7, Eosinophils # (Auto) 0.1, Basophils # (Auto) 0.0, Immature Granulocyte # (Auto) 0.0, Sodium Level 140, Potassium Level 3.3L, Chloride Level 97L, Carbon Dioxide Level 28, Anion Gap 15H, Blood Urea Nitrogen 10, Creatinine 0.84, Estimat Glomerular Filtration Rate > 60, BUN/Creatinine Ratio 12, Glucose Level 108H, Calcium Level 8.7, Phosphorus Level 4.0, Magnesium Level 1.9 02/28/20 02:10: Blood Gas Puncture Site RIGHT RADIAL, Blood Gas Patient Temperature 37, Arterial Blood pH 7.45H, Arterial Blood Partial Pressure CO2 47H, Arterial Blood Partial Pressure O2 64L, Arterial Blood HCO3 32H, Arterial Blood Total CO2 33.8H, Arterial Blood Oxygen Saturation 89L, Arterial Blood Base Excess 8.1H, Juancho Test POSITIVE, Blood Gas Ventilator Setting YES, Blood Gas Inspired Oxygen 30 Microbiology 02/17/20 Blood Culture - Final, Complete No growth 02/17/20 Influenza Types A,B Antigen (THANG) - Final, Complete Assessment/Plan Assessment/Plan (1) Acute and chronic respiratory failure with hypoxia Status: Acute Assessment & Plan: - Patient intubated in ER, has been ventilated until this m ornminnie, currently on vapotherm at time of my exam. Remains on Zosyn. (2) Septic shock Status: Resolved Assessment & Plan: - Patient requiring pressors initially, Flu B positive, COVID negative, s/p oseltamavir course, remains on Zosyn. (3) Influenza B Status: Acute Assessment & Plan: -s/p Tamiflu (4) Acute renal failure (ARF) Status: Resolved (5) Elevated troponin Assessment & Plan: - Cardiology consulted, likely Type II due to respiratory failure, cardiac cath done and showed non-obstructive disease, patent stent in circumflex, EF 25%. (6) Elevated brain natriuretic peptide (BNP) level Status: Acute Assessment & Plan: - Cath with EF 25% thought to be due to severe hypoxia/respiratory failure, no obstructive disease seen, diuresed, Cardiology following. (7) Swelling of lower extremity Status: Acute Assessment & Plan: - Dopplers neg (8) DVT prophylaxis Status: Acute Assessment & Plan: Lovenox Clinical Quality Measures DVT/VTE Risk/Contraindication: Risk Factor Score Per Nursin RFS Level Per Nursing on Admit: 4+=Very High LAMONT RAMIREZ MD Feb 28, 2020 09:06
[2020-02-28] MEDS: CALCIUM ACETATE 667 MG CAP (PHOSLO) PO SCH ×3 (09:20→17:49)
[2020-02-28] MEDS: LOSARTAN 25 MG (COZAAR) TAB PO SCH (09:21)
[2020-02-28] MEDS: meTOprolol TARTRATE 25 MG (LOPRESSOR) TABLET PO SCH ×2 (09:21→19:42)
[2020-02-28] MEDS: NYSTATIN CREAM (MYCOSTATIN) 30 GM TUBE TP SCH ×3 (09:21→19:42)
[2020-02-28] MEDS: PANTOPRAZOLE 40 MG (PROTONIX) VIAL IV SCH (09:21)
[2020-02-28] MEDS: ENOXAPARIN 40 MG/0.4 ML (LOVENOX) SYR SC SCH ×2 (09:27→19:42)
[2020-02-28 09:37] VITALS: BP 113/61
[2020-02-28 09:47] LABS: ABG BASE EXCESS 6.1 MMOL/L (-2.5-2.5); ABG OXYGEN SATURATION 90 % (94-100); ABG PCO2 59 MMHG (35-45); ABG PH 7.35 (7.37-7.43); ABG PO2 74 MMHG (79-93); ABG TCO2 33.1 MMOL/L (21.0-31.0)
[2020-02-28 09:48] LABS: ALLENS TEST YES-POS; INSPIRED O2 40%; VENTILATOR NO
[2020-02-28 09:49] LABS: PATIENT TEMP 37.7
--- NOTE | 2020-02-28 10:17 | Physical Therapy Progress Note ---
Therapy Progress Note PROM (B) UE/LE through multiple planes. RUSTY FELTON PT Feb 28, 2020 10:17
--- NOTE | 2020-02-28 11:55 | Physical Therapy Progress Note ---
Therapy Progress Note Patient on hold per RN due to increase in O2 demand requiring BiPap use. PT will attempt in THOR Farrell PT Feb 28, 2020 11:55
[2020-02-28 13:59] VITALS: BP 120/68
--- NOTE | 2020-02-28 18:39 | NUR ---
CALL PLACED TO EICU FOR LOW URINE OUTPUT. RECEIVED ORDERS FOR LASIX AT THIS TIME.
[2020-02-28 18:56] VITALS: BP 134/69
[2020-02-28 22:49] VITALS: BP 132/76
[2020-02-29 02:30] LABS: BASOPHILS # (AUTO) 0.1 10^3/uL (0.0-0.1); BASOPHILS % (AUTO) 1 % (0-10); EOSINOPHILS % (AUTO) 0 % (0-10); HEMATOCRIT 34 % (35-52); HEMOGLOBIN 9.8 g/dL (11.5-16.0); LYMPHOCYTES # (AUTO) 1.3 10^3/uL (1.0-4.0); LYMPHOCYTES % (AUTO) 17 % (12-44); MEAN CORPUSCULAR HEMOGLOBIN 25 pg (25-34); MEAN CORPUSCULAR HGB CONC 29 g/dL (32-36); MEAN CORPUSCULAR VOLUME 86 fL (80-99); MEAN PLATELET VOLUME 10.5 fL (9.0-12.2); MONOCYTES # (AUTO) 0.7 10^3/uL (0.0-1.0); MONOCYTES % (AUTO) 9 % (0-12); NEUTROPHILS # (AUTO) 5.5 10^3/uL (1.8-7.8); NEUTROPHILS % (AUTO) 72 % (42-75); PLATELET COUNT 369 10^3/uL (130-400); WHITE BLOOD COUNT 7.6 10^3/uL (4.3-11.0)
[2020-02-29 02:39] LABS: BUN/CREATININE RATIO 15; CALCIUM 8.4 MG/DL (8.5-10.1); CARBON DIOXIDE 27 MMOL/L (21-32); CHLORIDE 103 MMOL/L (98-107); CREATININE SERUM 0.93 MG/DL (0.60-1.30); GFR ESTIMATED > 60; GLUCOSE 85 MG/DL (70-105); PHOSPHORUS 3.6 MG/DL (2.3-4.7); POTASSIUM 3.2 MMOL/L (3.6-5.0); SODIUM 143 MMOL/L (135-145)
--- NOTE | 2020-02-29 03:01 | Pulmonary Progress Note ---
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 Occasionally cries but immediately stops and begins muttering again. Difficult to understand over BiPAP, able to respond no when asked if in any current pain. Sepsis Event Evaluation Height, Weight, BMI Height: 5'7.00" Weight: 220lbs. 0.0oz. 99.502444lh; 44.95 BMI Method:Stated Exam Exam Vital Signs Date Time Temp Pulse Resp B/P (MAP) Pulse Ox O2 Delivery O2 Flow Rate FiO2 02/29/20 01:00 98 02/28/20 22:49 98 29 95 02/28/20 21:58 95 NIV Bilevel 30 02/28/20 19:58 37.9 02/28/20 19:00 101 02/28/20 18:56 103 17 95 02/28/20 16:00 105 136/78 94 Vapotherm 40.00 30.00 02/28/20 15:20 35.8 02/28/20 15:00 102 17 126/78 95 Vapotherm 40.00 30.00 02/28/20 14:00 105 10 113/62 96 Vapotherm 40.00 30.00 02/28/20 13:59 103 26 96 02/28/20 13:00 104 52 126/74 95 Vapotherm 40.00 30.00 02/28/20 12:52 103 02/28/20 12:00 102 50 122/65 94 Vapotherm 40.00 30.00 02/28/20 11:00 103 44 120/65 94 Vapotherm 40.00 30.00 02/28/20 10:00 107 35 122/63 96 Vapotherm 40.00 30.00 02/28/20 09:37 109 41 96 30.00 02/28/20 09:00 107 25 111/63 96 Vapotherm 40.00 30.00 02/28/20 08:20 Vapotherm 40.00 30.00 02/28/20 08:14 93 Vapotherm 40.00 25 02/28/20 08:00 99 48 105/75 91 Vapotherm 40.00 30.00 02/28/20 08:00 37.7 02/28/20 07:00 98 11 119/63 93 Vapotherm 40.00 30.00 02/28/20 06:36 101 02/28/20 06:23 95 Vapotherm 40.00 30 02/28/20 06:00 93 20 120/76 95 Vapotherm 40.00 30.00 02/28/20 05:58 Vapotherm 40.00 30.00 02/28/20 05:47 Vapotherm 40.00 50.00 02/28/20 05:00 78 21 122/86 97 Mechanical Ventilator 30.00 02/28/20 04:00 76 20 126/72 96 Mechanical Ventilator 30.00 02/28/20 03:59 76 02/28/20 03:00 74 25 106/75 94 Mechanical Ventilator 30.00 I & O 02/29/20 07:00 Intake Total 1410 ml Output Total 950 ml Balance 460 ml Height & Weight Height: 5'7.00" Weight: 220lbs. 0.0oz. 99.691911lf; 44.95 BMI Method:Stated General Appearance: Anxious, Obese HEENT: PERRL/EOMI; No Scleral Icterus (L), No Scleral Icterus (R) Neck: Normal Inspection, Non Tender Respiratory: Chest Non Tender, No Accessory Muscle Use, No Respiratory Distress, Other (on Bipap) Cardiovascular: Regular Rate, Rhythm, No Murmur, Normal Peripheral Pulses Capillary Refill: Less Than 3 Seconds Peripheral Pulses: 2+ Dorsalis Pedis (R), 2+ Left Dors-Pedis (L), 2+ Radial Pulses (R), 2+ Radial Pulses (L) Gastrointestinal: non tender, soft, no pulsatile mass; No distended Extremity: Normal Inspection, Normal Range of Motion, Non Tender, No Calf Tenderness, Other (3+ significant edema going up to the hip and including the abdomen) Neurologic/Psychiatric: Alert; No Oriented x3, No Normal Mood/Affect; Disoriented Skin: Normal Color, Warm/Dry Results Lab Laboratory Tests 02/27/20 03:03 02/28/20 01:59 02/29/20 02:10 Assessment/Plan Assessment/Plan Acute respiratory failure Influenza B positive with ARDS Pa02/Fi02 214 now - patient on BiPaP - IPAP=15, EPEP=8, rate=12, O2=30% -Propofol and add Precedex. - Zosyn -Repeat sputum culture pending and PCT is higher -Tamiflu -Lasix BID 40mg -Intubated on admission 02/15 -Reintubated 02/16 secondary to self extubation -Change vent to AC 24/400/PEEP of 15 -Decrease PEEP to 5 -Propofol and Fentanyl -CXR reviewed -Intubated 02/15 on admission - COVID is negative -Bilater dopplers - normal - Decadron -- D/C Pneumonia with probable pseudomonus and strep -Continue Zosyn for total of 14 days. -Zosyn auto stopped will reorder. Pt has had copious amounts of sputum production and had pseudomonus in sputum. Cellulitis -improved -Vanco, Zosyn started 02/16 -D/C Vanco 11/ -Oswald cultures pending Hypotension -Improved -Monitor Hypokalemia -replace ARF with hyperphos -Start PhosLo -Monitor Hx of venous insuff CAD hx Chronic tobacco use STU CABAN DO 02/29/20 0537: Assessment/Plan Assessment/Plan Acute respiratory failure Influenza B positive with ARDS Pa02/Fi02 214 now - BiPaP HS - Zosyn -s/p Tamiflu -CXR reviewed - COVID is negative -Bilater dopplers - normal Pneumonia with probable pseudomonus and strep -Continue Zosyn for total of 14 days. -Zosyn auto stopped will reorder. Pt has had copious amounts of sputum production and had pseudomonus in sputum. Cellulitis -improved -Vanco, Zosyn started 02/16 -D/C Vanco 02/19 -Oswald cultures pending Hypotension -Improved -Monitor Hypokalemia -replace ARF with hyperphos -Start PhosLo -Monitor Hx of venous insuff CAD hx Chronic tobacco use KIESHA TREADWELL STUDENT Feb 29, 2020 03:01 STU CABAN DO Feb 29, 2020 05:37
[2020-02-29 03:06] VITALS: BP 132/76
[2020-02-29] MEDS: RT-ALBUTEROL/IPRATROPIUM 3 ML (DUONEB) VIAL INH SCH ×5 (03:06→23:00)
[2020-02-29] MEDS: NOREPINEPHRINE 4 MG/250 ML 250 ML IV SCH (03:16)
[2020-02-29] MEDS: MAGNESIUM 1 GM/100 ML IVPB 100 ML IV SCH (03:27)
[2020-02-29] MEDS: KCL 20 MEQ TAB (K-DUR) PO SCH (03:27)
[2020-02-29] MEDS: POTASSIUM CL 10MEQ/50ML IVPB 50 ML IV SCH ×4 (03:27→06:34)
[2020-02-29] MEDS: PIPERACILLIN/TAZOBACTAM (BULK) 4.5 GM in NS (IVPB) 100 ML IV SCH ×3 (04:08→22:11)
[2020-02-29] MEDS: inSUlin ASPART (NovoLOG) 1 UNIT/0.01 ML (CHARGE PER UNIT) SC SCH ×5 (06:33→21:28)
[2020-02-29 07:33] VITALS: BP 134/73
--- NOTE | 2020-02-29 08:08 | Diagnostic Imaging Report ---
Portable erect AP chest at 312 hours. INDICATION: Respiratory distress. This exam is less than optimal as the periphery of the left lung base is not included. FINDINGS: In the interval since the prior study of 02/28/2020, the patient has been extubated and the NG line has been removed. The central venous catheter on the right remains unchanged in position. The heart is still enlarged and there is persistent involvement of the left lower lobe by atelectasis/infiltrate and fluid. The right lung base does seem somewhat better aerated. The upper lungs are relatively clear. The mediastinum is not widened. The osseous structures are intact. IMPRESSION: 1. There is persistent involvement of the left lower lobe by atelectasis/infiltrate and fluid. However, the right lung base does seem better aerated. A followup study would be recommended for continued evaluation. 2. The patient has been extubated and NG line has been removed. Dictated by: Dictated on workstation # [id number]
--- NOTE | 2020-02-29 10:03 | Progress Note ---
Subjective Subjective/Events-last exam Afebrile, used bipap overnight, able to converse on vapotherm, feels like her breathing is doing pretty well. She is able to converse much better today, but still has some confusion. Objective Exam Last Set of Vital Signs Vital Signs Date Time Temp Pulse Resp B/P (MAP) Pulse Ox O2 Delivery O2 Flow Rate FiO2 02/29/20 09:15 95 NIV Bilevel 30 02/29/20 08:30 40.00 02/29/20 07:56 36.8 02/29/20 07:33 95 20 02/29/20 06:00 128/73 Capillary Refill : Less Than 3 Seconds I&O Intake and Output 02/29/20 00:00 Intake Total 1410 ml Output Total 1145 ml Balance 265 ml Intake Oral 0 ml IV Total 1410 ml Output Urine Total 1145 ml General: Alert, No Acute Distress Lungs: Other (ronchi) Heart: Regular Rate, No Murmurs Abdomen: Normal Bowel Sounds, Soft Neuro: Normal Speech, Other (oriented to self only) Results/Procedures Lab Laboratory Tests 02/28/20 17:49: Glucometer 96 02/29/20 00:17: Glucometer 89 02/29/20 02:10: White Blood Count 7.6, Red Blood Count 3.98, Hemoglobin 9.8L, Hematocrit 34L, Mean Corpuscular Volume 86, Mean Corpuscular Hemoglobin 25, Mean Corpuscular Hemoglobin Concent 29L, Red Cell Distribution Width 19.9H, Platelet Count 369, Mean Platelet Volume 10.5, Immature Granulocyte % (Auto) 1, Neutrophils (%) (Auto) 72, Lymphocytes (%) (Auto) 17, Monocytes (%) (Auto) 9, Eosinophils (%) (Auto) 0, Basophils (%) (Auto) 1, Neutrophils # (Auto) 5.5, Lymphocytes # (Auto) 1.3, Monocytes # (Auto) 0.7, Eosinophils # (Auto) 0.0, Basophils # (Auto) 0.1, Immature Granulocyte # (Auto) 0.0, Sodium Level 143, Potassium Level 3.2L, Chloride Level 103, Carbon Dioxide Level 27, Anion Gap 13, Blood Urea Nitrogen 14, Creatinine 0.93, Estimat Glomerular Filtration Rate > 60, BUN/Creatinine Ratio 15, Glucose Level 85, Calcium Level 8.4L, Phosphorus Level 3.6, Magnesium Level 2.0 Microbiology 02/17/20 Blood Culture - Final, Complete No growth 02/17/20 Influenza Types A,B Antigen (THANG) - Final, Complete Assessment/Plan Assessment/Plan (1) Acute and chronic respiratory failure with hypoxia Status: Acute Assessment & Plan: - Patient intubated in ER, has been ventilated until this morning, currently on vapotherm at time of my exam. Remains on Zosyn. 02/28 needing bipap overnight and during day yesterday due to work of breathing, appears better this morning, continue to wean support as tolerated. (2) Septic shock Status: Resolved Assessment & Plan: - Patient requiring pressors initially, Flu B positive, COVID negative, s/p oseltamavir course, remains on Zosyn. (3) Influenza B Status: Acute Assessment & Plan: -s/p Tamiflu (4) Acute renal failure (ARF) Status: Resolved (5) Elevated troponin Assessment & Plan: - Cardiology consulted, likely Type II due to respiratory fa ilure, cardiac cath done and showed non-obstructive disease, patent stent in circumflex, EF 25%. (6) Elevated brain natriuretic peptide (BNP) level Status: Acute Assessment & Plan: - Cath with EF 25% thought to be due to severe hypoxia/respiratory failure, no obstructive disease seen, diuresed, Cardiology following. (7) Swelling of lower extremity Status: Acute Assessment & Plan: - Dopplers neg (8) Delirium Status: Acute Assessment & Plan: Secondary to ICU/prolonged intubation- improving today compared to yesterday, continue to minimize lines and reorient as needed. (9) DVT prophylaxis Status: Acute Assessment & Plan: Loveno Clinical Quality Measures DVT/VTE Risk/Contraindication: Risk Factor Score Per Nursin RFS Level Per Nursing on Admit: 4+=Very High LAMONT RAMIREZ MD Feb 29, 2020 10:03
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
[2020-02-29] MEDS: meTOprolol TARTRATE 25 MG (LOPRESSOR) TABLET PO SCH ×2 (11:46→20:34)
[2020-02-29] MEDS: LOSARTAN 25 MG (COZAAR) TAB PO SCH (11:46)
[2020-02-29] MEDS: ENOXAPARIN 40 MG/0.4 ML (LOVENOX) SYR SC SCH ×2 (11:46→20:36)
[2020-02-29] MEDS: PANTOPRAZOLE 40 MG (PROTONIX) VIAL IV SCH (11:46)
[2020-02-29] MEDS: CALCIUM ACETATE 667 MG CAP (PHOSLO) PO SCH ×3 (11:46→19:50)
[2020-02-29] MEDS: NYSTATIN CREAM (MYCOSTATIN) 30 GM TUBE TP SCH ×3 (11:47→20:34)
--- NOTE | 2020-02-29 12:49 | ST Dysphagia Evaluation ---
Speech Evaluation-General Medical Diagnosis respiratory failure/hypercapnia/PETR Onset Date: Feb 16, 2020 Therapy Diagnosis Therapy Diagnosis: Oropharyngeal Dysphagia Precautions Precautions: Aspiration Referral Referring Physician: Dr. Hummel Medical History Pertinent Medical History: COPD, HTN, Smoking Reviewed History: Yes Social History Current Living Status: Children Speech PLF/Current-Dysphagia Prior Level of Function Patient lives in her home with her daughter where she was independent for much of her daily needs. Subjective Patient was cooperative with the Bedside Dysphagia Evaluation. Oral Motor Skills Dentition: Edentalous Ability to Follow Directions: Good Patient was NPO pending BDE Oral Expression Ability: Mild Impairment Voice Voice Phonatory-Based Quality: Breathy, Weak Voice Pitch: Normal Voice Loudness: Mildly Soft/Quiet Face Facial Symmetry: Symmetrical Oral-Facial Assessment Oral-Facial Dentition: Normal Smile: Reduced ROM Lingual Protrusion: Normal Lingual ROM: Normal Lingual Strength: Normal Pharynx Velopharyngeal Move.: Absent Volitional Dry Swallow: Yes Can Clear Throat Volitionally: Yes Dysphagia Evaluation Consistencies Presented: Thin Liquid, Mechanical Soft, Pureed Oral phase is within normal range of function for all consistencies presented. Pharyngeal phase is within normal range of function for all consistencies presented. Dietary Recommendations: Mechanical Soft Liquid Recommendations: Thin Swallowing Precautions: Alternate Liquids/Solids, Decreased Bolus 1/2 Tsp, Liqu ids from Straw, Small Bites and Sips, Sitting Upright 90 Degrees, Sitting 90 Degrees 30 Post Intake Dysphagia Evaluation Summary The patient was referred for Bedside Dysphagia Evaluation following extubation on 02/28/2020. The patient was unable to follow directions until today. The BDE was completed with 1/2 tsp of thin liquids x3, small sips via straw x3 without difficulty. The patient was also given 1/2 tsp of puree and mechanical soft without difficulty. The patient was not given the regular texture due to being edentulous. The patient is recommended for Dysphagia II with thin liquids. This information was provided to her nurse and written on the white board in her room. Barriers to Learning Recent health issues Speech-Plan Patient/Family Goals Patient/Family Goals: The patient plans on returning to her home upon hospital discharge. Treatment Plan Speech Therapy Treatment Plan: Discontinue ST Treatment Duration: Feb 29, 2020 Frequency: 1 time per week Estimated Hrs Per Day: .25 hour per day Rehab Potential: Guarded Barriers to Learning: Recent health issues Pt/Family Agrees to Plan: Yes Safety Risks/Education Teaching Recipient: Patient Teaching Methods: Discussion Response to Teaching: Verbalize Understanding Education Topics Provided: Safety of oral intake, diet levels Time Speech Therapy Time In: 09:00 Speech Therapy Time Out: 08:55 Total Billed Time: 20 Billed Treatment Time 1, MIKAELA GUZMAN [address] Feb 29, 2020 12:49
[2020-02-29 14:23] VITALS: BP 168/91
[2020-02-29 23:05] VITALS: BP 120/82
[2020-03-01] MEDS: POTASSIUM CHLORIDE INJ 20 MEQ in LACTATED RINGERS 1,000 ML IV SCH (01:14)
[2020-03-01 03:28] VITALS: BP 120/82
[2020-03-01] MEDS: RT-ALBUTEROL/IPRATROPIUM 3 ML (DUONEB) VIAL INH SCH ×6 (03:28→23:00)
[2020-03-01] MEDS: PIPERACILLIN/TAZOBACTAM (BULK) 4.5 GM in NS (IVPB) 100 ML IV SCH ×3 (05:22→20:10)
[2020-03-01 05:35] LABS: BASOPHILS # (AUTO) 0.1 10^3/uL (0.0-0.1); BASOPHILS % (AUTO) 1 % (0-10); EOSINOPHILS # (AUTO) 0.3 10^3/uL (0.0-0.3); EOSINOPHILS % (AUTO) 5 % (0-10); HEMATOCRIT 34 % (35-52); HEMOGLOBIN 9.7 g/dL (11.5-16.0); LYMPHOCYTES # (AUTO) 1.1 10^3/uL (1.0-4.0); LYMPHOCYTES % (AUTO) 18 % (12-44); MEAN CORPUSCULAR HEMOGLOBIN 25 pg (25-34); MEAN CORPUSCULAR HGB CONC 28 g/dL (32-36); MEAN CORPUSCULAR VOLUME 88 fL (80-99); MONOCYTES # (AUTO) 0.6 10^3/uL (0.0-1.0); MONOCYTES % (AUTO) 10 % (0-12); NEUTROPHILS # (AUTO) 4.1 10^3/uL (1.8-7.8); NEUTROPHILS % (AUTO) 66 % (42-75); PLATELET COUNT 390 10^3/uL (130-400); WHITE BLOOD COUNT 6.2 10^3/uL (4.3-11.0)
[2020-03-01 05:39] LABS: CHLORIDE 105 MMOL/L (98-107); POTASSIUM 3.5 MMOL/L (3.6-5.0); SODIUM 146 MMOL/L (135-145)
[2020-03-01 05:41] LABS: CALCIUM 8.5 MG/DL (8.5-10.1); GLUCOSE 83 MG/DL (70-105)
[2020-03-01 05:43] LABS: CARBON DIOXIDE 28 MMOL/L (21-32)
[2020-03-01 05:45] LABS: CREATININE SERUM 0.75 MG/DL (0.60-1.30); GFR ESTIMATED > 60; PHOSPHORUS 3.6 MG/DL (2.3-4.7)
[2020-03-01 05:46] LABS: BUN/CREATININE RATIO 20
[2020-03-01 05:47] LABS: MAGNESIUM 2.1 MG/DL (1.6-2.4)
[2020-03-01] MEDS: inSUlin ASPART (NovoLOG) 1 UNIT/0.01 ML (CHARGE PER UNIT) SC SCH ×4 (05:49→20:38)
[2020-03-01] MEDS: MAGNESIUM 1 GM/100 ML IVPB 100 ML IV SCH (05:50)
[2020-03-01] MEDS: KCL 20 MEQ TAB (K-DUR) PO SCH (05:51)
[2020-03-01] MEDS ORDERED: KCL 20 MEQ TAB (K-DUR) PO ONE (06:00)
--- NOTE | 2020-03-01 07:01 | Pulmonary Progress Note ---
Subjective Time Seen by a Provider: 06:58 Subjective/Events-last exam Pt appears to be doing much better. Sepsis Event Evaluation Height, Weight, BMI Height: 5'7.00" Weight: 220lbs. 0.0oz. 99.175832zp; 44.95 BMI Method:Stated Exam Exam Vital Signs Date Time Temp Pulse Resp B/P (MAP) Pulse Ox O2 Delivery O2 Flow Rate FiO2 03/01/20 04:00 36.7 86 22 136/85 95 NIV Bilevel 40.00 03/01/20 03:28 92 30 93 40.00 03/01/20 01:00 87 02/29/20 23:38 37.1 89 36 120/73 92 NIV Bilevel 40.00 02/29/20 23:05 92 30 93 40.00 02/29/20 20:30 36.7 90 36 120/73 94 NIV Bilevel 40.00 02/29/20 20:30 94 NIV Bilevel 40.00 02/29/20 19:00 101 02/29/20 16:00 98 41 155/87 90 NIV Bilevel 40.00 02/29/20 14:48 40.00 02/29/20 14:23 96 24 93 40.00 02/29/20 14:00 96 12 168/91 90 NIV Bilevel 30.00 02/29/20 12:52 98 02/29/20 12:00 103 31 155/91 84 NIV Bilevel 30.00 02/29/20 11:39 37.2 02/29/20 11:24 92 Vapotherm 40.00 30 02/29/20 10:00 89 36 141/89 99 NIV Bilevel 30.00 02/29/20 09:15 95 NIV Bilevel 30 02/29/20 08:30 94 Vapotherm 40.00 30 02/29/20 08:00 94 13 131/73 93 NIV Bilevel 30.00 02/29/20 07:56 36.8 02/29/20 07:33 95 20 95 30.00 02/29/20 07:00 97 15 133/73 94 NIV Bilevel 30.00 I & O 03/01/20 07:00 Intake Total 885 ml Output Total 610 ml Balance 275 ml Height & Weight Height: 5'7.00" Weight: 220lbs. 0.0oz. 99.145501ih; 44.95 BMI Method:Stated General Appearance: No Apparent Distress, Anxious, Obese HEENT: PERRL/EOMI; No Scleral Icterus (L), No Scleral Icterus (R) Neck: Normal Inspection, Non Tender Respiratory: Chest Non Tender, No Accessory Muscle Use, No Respiratory Distress, Other (on Bipap) Cardiovascular: Regular Rate, Rhythm, No Murmur, Normal Peripheral Pulses Capillary Refill: Less Than 3 Seconds Peripheral Pulses: 2+ Dorsalis Pedis (R), 2+ Left Dors-Pedis (L), 2+ Radial Pulses (R), 2+ Radial Pulses (L) Gastrointestinal: non tender, soft, no pulsatile mass; No distended Extremity: Normal Inspection, Normal Range of Motion, Non Tender, No Calf Tenderness, Other (3+ significant edema going up to the hip and including the abdomen) Neurologic/Psychiatric: Alert; No Oriented x3, No Normal Mood/Affect; Disoriented Skin: Normal Color, Warm/Dry Results Lab Laboratory Tests 02/29/20 02:10 03/01/20 05:20 Assessment/Plan Assessment/Plan Acute respiratory failure Influenza B positive with ARDS Pa02/Fi02 214 now - BiPaP HS - Zosyn -s/p Tamiflu -CXR reviewed - COVID is negative -Bilater dopplers - normal Pneumonia with probable pseudomonus and strep -Continue Zosyn for total of 14 days. -Zosyn auto stopped will reorder. Pt has had copious amounts of sputum production and had pseudomonus in sputum. Cellulitis -improved -Vanco, Zosyn started 02/16 -D/C Vanco 02/19 -Oswald cultures pending Hypokalemia -replace ARF - improved -D/C PhosLo -Monitor Hx of venous insuff CAD hx Chronic tobacco use STU CABAN DO Mar 01, 2020 07:01
--- NOTE | 2020-03-01 07:08 | Diagnostic Imaging Report ---
INDICATION: Respiratory failure. Influenza. TECHNIQUE: Single view chest 3:24 AM. CORRELATION STUDY: 02/29/2020 FINDINGS: Right IJ central line tip over the SVC. Heart size and mediastinum are stable. Vasculature is slightly prominent. Minimal opacity left lung base could be atelectasis or infiltrate. IMPRESSION: 1. Continued atelectasis or infiltrate left lung base overall likely relatively stable. Dictated by: Dictated on workstation # [id number]
--- NOTE | 2020-03-01 08:46 | NUR ---
RT NOTIFIED PER DR CABAN'S REQUEST TO SWITCH PT FROM BIPAP TO VAPOTHERM
[2020-03-01] MEDS: meTOprolol TARTRATE 25 MG (LOPRESSOR) TABLET PO SCH ×2 (09:13→20:11)
[2020-03-01] MEDS: ASPIRIN 81 MG CHEW (CHILDREN'S ASA) PO SCH (09:14)
[2020-03-01] MEDS: PANTOPRAZOLE 40 MG (PROTONIX) VIAL IV SCH (09:14)
[2020-03-01] MEDS: ENOXAPARIN 40 MG/0.4 ML (LOVENOX) SYR SC SCH ×2 (09:14→20:11)
[2020-03-01] MEDS: LOSARTAN 25 MG (COZAAR) TAB PO SCH (09:14)
[2020-03-01] MEDS: FUROSEMIDE 20 MG (LASIX) TAB PO SCH ×2 (09:14→15:01)
[2020-03-01] MEDS: NYSTATIN CREAM (MYCOSTATIN) 30 GM TUBE TP SCH ×4 (09:15→20:11)
--- NOTE | 2020-03-01 10:15 | Cardiology Progress Note ---
Subjective Date Seen by Provider: Mar 01, 2020 Time Seen by Provider: 10:13 Subjective/Events-last exam Patient is sitting up in bed, denies any chest pain or increased dypsnea. Review of Systems General: No Chills, No Night Sweats; Fatigue; No Malaise, No Appetite, No Other HEENT: No Head Aches, No Visual Changes, No Eye Pain, No Ear Pain, No Dysphasia, No Sinus Congestion, No Post Nasal Drip, No Sore Throat, No Other Pulmonary: Dyspnea, Cough; No Pleuritic Chest Pain, No Other Cardiovascular: Edema; No: Chest Pain, Palpitations, Orthopnea, Paroxysmal Noc. Dyspnea, Lt Headedness, Other Objective-Cardiology Exam Last Set of Vital Signs Vital Signs 03/01/20 03/01/20 11:24 11:34 Temp 36.5 Pulse 92 Resp 19 B/P (MAP) 159/90 Pulse Ox 92 O2 Delivery NIV Bilevel O2 Flow Rate 40.00 FiO2 40 Capillary Refill : Less Than 3 SecondsLess Than 3 Seconds I&O Intake and Output 03/01/20 00:00 Intake Total 885 ml Output Total 585 ml Balance 300 ml Intake Oral 445 ml IV Total 440 ml Output Urine Total 585 ml General: Alert, Cooperative, No Acute Distress HEENT: Atraumatic, PERRLA Neck: Supple, No JVD Lungs: Other (rhonchi) Heart: Regular Rate, Normal S1, Normal S2, No Murmurs Abdomen: Normal Bowel Sounds, Soft Extremities: No Clubbing, No Cyanosis, Other (1+ pitting edema) Neuro: Normal Speech Results Lab Laboratory Tests 03/01/20 05:20 A/P-Cardiology Admission Diagnosis Acute respiratory failure Non-ST elevation myocardial infarction Congestive heart failure Acute renal failure Assessment/Plan Acute respiratory failure, extubated and currently on Vapotherm. Managed by primary care team Influenza B infection, managed by Dr. Hummel Congestive heart failure, acute left ventricular systolic dysfunction, nonischemic cardiomyopathy, probably stunned myocardium due to hypoxemia. Responding well to diuretics, continue to monitor Hypokalemia, replace and monitor Coronary artery disease, history of myocardial infarction in 2009 transferred to [facility] and had a stent to the circumflex artery. Repeat cardiac catheterization was carried out on February 18, 2020 showing patent stent in the circumflex artery otherwise mild coronary artery disease, non obstructive disease with severe cardiomyopathy and ejection fraction 25 percent and elevated left ventricular end-diastolic pressure, continue on diuretics for now Chronic pedal edema, continue with diuretics and monitor response Acute on chronic renal insufficiency, improved, continue to monitor Tobaccoism Patient was seen and evaluated with Iveth, examination performed, management plan was discussed, agree with the current scribed note, I made few changes to the note using Italic font Patient was seen and evaluated, having some shortness of breath, overall tired. Still having mild pedal edema. Still on Vapotherm, 40 percent, managed by Dr. Hummel Clinical Quality Measures DVT/VTE Risk/Contraindication: Risk Factor Score Per Nursin RFS Level Per Nursing on Admit: 4+=Very High IVETH SMITH Mar 01, 2020 10:15 JOYCE ANDREA MD Mar 01, 2020 12:50
--- NOTE | 2020-03-01 10:41 | Physical Therapy Daily Note ---
PT Daily Note-Current Subjective Patient in bed pre tx, agrees to PT, has bipap on. O2 above 90% Appearance Patient in bed post tx with nurse call, phone, tray, all needs met, bed alarm on. Mental Status Patient Orientation: Person, Unable to Assess, [place] Attachments: Oxygen, Peoples Catheter, IV Transfers SCALE: Activities may be completed with or without assistive devices. 9-Tzounmlhdd-jvkhcqf completes the activity by him/herself with no assistance from a helper. 5-Set-up or Clean-up Assistance-helper sets up or cleans up; patient completes activity. [place] assists only prior to or following the activity. 4-Supervision or Touching Assistance-helper provides verbal cues and/or touching/steadying and/or contact guard assistance as patient completes activity. Assistance may be provided throughout the activity or intermittently. 3-Partial/Moderate Assistance-helper does LESS THAN HALF the effort. [place] lifts, holds or supports trunk or limbs, but provides less than half the effort. 2-Substantial/Maximal Assistance-helper does MORE THAN HALF the effort. [place] lifts or holds trunk or limbs and provides more than half the effort. 2-Iimhzgvwk-sydivi does ALL the effort. Patient does none of the effort to complete the activity. Or, the assistance of 2 or more helpers is required for the patient to complete the activity. If activity was not attempted, code reason: 7-Patient Refused. 9-Not Applicable-not attempted and the patient did not perform the activity before the current illness, exacerbation or injury. 10-Not Attempted due to Environmental Limitations-(lack of equipment, weather restraints, etc.). 88-Not Attempted due to Medical Conditions or Safety Concerns. Roll Left & Right (QC): 1 Sit to Lying (QC): 1 Lying to Sitting/Side of Bed(Q: 1 Patient was able to sit on the side of the bed for about 10 min before needing to lay down Exercises Seated Therapy Exercises: Ankle pumps, Long arc quads Seated Reps: 10 Treatments bed mobility, sitting, LE exercise Assessment Current Status: Poor Progress Patient very weak, confused, SOB with activity. PT Short Term Goals Short Term Goals Time Frame: Mar 17, 2020 Roll Left & Right: 2 Sit to lyin Lying to sitting on side of be: 2 Sit to stand: 2 Chair/hfg-ab-cyery transfer: 2 PT Correction Goals Correction Goals PT Helper Marble Finisher Goals Time Frame: Apr 01, 2020 Roll Left & Right (QC): 4 Sit to Lying (QC): 4 Lying-Sitting on Side/Bed(QC): 4 Sit to Stand (QC): 4 Chair/Zlu-er-Camme Xfer(QC): 4 Toilet Transfer (QC): 4 Car Transfer (QC): 4 Does the Patient Walk: Yes Walk 10 feet (QC): 4 Walk 50ft with 2 Turns (QC): 4 PT Plan Problem List Problem List: Activity Tolerance, Functional Strength, Safety, Balance, Gait, Transfer, Bed Mobility, ROM Treatment/Plan Treatment Plan: Continue Plan of Care Treatment Plan: Bed Mobility, Education, Functional Activity Cristela, Functional Strength, Gait, Safety, Therapeutic Exercise, Transfers Treatment Duration: Apr 01, 2020 Frequency: 6 times per week Estimated Hrs Per Day: .5 hour per day Patient and/or Family Agrees t: Yes Safety Risks/Education Patient Education: Correct Positioning, Safety Issues Teaching Recipient: Patient Teaching Methods: Demonstration, Discussion Response to Teaching: Reinforcement Needed Patient on right side with pillow support for pressure relief at end of tx. Time/GCodes Time In: 0838 Time Out: 0851 Total Billed Treatment Time: 13 Total Billed Treatment 1 visit FA MARI GIBSON PT Mar 01, 2020 10:41
[2020-03-01] MEDS ORDERED: FUROSEMIDE 40 MG (LASIX) TAB PO ONE (15:00)
--- NOTE | 2020-03-01 21:38 | Progress Note ---
Subjective Subjective/Events-last exam Seen at 0830, still on bipap from overnight and seems somewhat frustrated, minimally answering questions. Afebrile. Objective Exam Last Set of Vital Signs Vital Signs Date Time Temp Pulse Resp B/P (MAP) Pulse Ox O2 Delivery O2 Flow Rate FiO2 03/01/20 20:28 37.1 95 20 160/81 97 NIV Bilevel 40.00 03/01/20 19:16 40 Capillary Refill : Less Than 3 SecondsLess Than 3 Seconds I&O Intake and Output 03/01/20 00:00 Intake Total 885 ml Output Total 585 ml Balance 300 ml Intake Oral 445 ml IV Total 440 ml Output Urine Total 585 ml General: Alert, Mild Distress Lungs: Other (ronchi) Heart: Regular Rate, No Murmurs Neuro: Normal Speech Results/Procedures Lab Laboratory Tests 03/01/20 05:20: White Blood Count 6.2, Red Blood Count 3.90, Hemoglobin 9.7L, Hematocrit 34L, Mean Corpuscular Volume 88, Mean Corpuscular Hemoglobin 25, Mean Corpuscular Hemoglobin Concent 28L, Red Cell Distribution Width 19.8H, Platelet Count 390, Mean Platelet Volume 10.0, Immature Granulocyte % (Auto) 1, Neutrophils (%) (Auto) 66, Lymphocytes (%) (Auto) 18, Monocytes (%) (Auto) 10, Eosinophils (%) (Auto) 5, Basophils (%) (Auto) 1, Neutrophils # (Auto) 4.1, Lymphocytes # (Auto) 1.1, Monocytes # (Auto) 0.6, Eosinophils # (Auto) 0.3, Basophils # (Auto) 0.1, Immature Granulocyte # (Auto) 0.1, Sodium Level 146H, Potassium Level 3.5L, Chloride Level 105, Carbon Dioxide Level 28, Anion Gap 13, Blood Urea Nitrogen 15, Creatinine 0.75, Estimat Glomerular Filtration Rate > 60, BUN/Creatinine Ratio 20, Glucose Level 83, Calcium Level 8.5, Phosphorus Level 3.6, Magnesium Level 2.1 03/01/20 05:44: Glucometer 82 03/01/20 10:20: Glucometer 83 03/01/20 15:31: Glucometer 79 03/01/20 20:31: Glucometer 97 Microbiology 02/17/20 Blood Culture - Final, Complete No growth 02/17/20 Influenza Types A,B Antigen (THANG) - Final, Complete Assessment/Plan Assessment/Plan (1) Acute and chronic respiratory failure with hypoxia Status: Acute Assessment & Plan: - Patient intubated in ER, has been ventilated until this morning, currently on vapotherm at time of my exam. Remains on Zosyn. 02/28 needing bipap overnight and during day yesterday due to work of breathing, appears better this morning, continue to wean support as tolerated. (2) Septic shock Status: Resolved Assessment & Plan: - Patient requiring pressors initially, Flu B positive, COVID negative, s/p oseltamavir course, remains on Zosyn- probably strep pneumo and pseudomonas in sputum. (3) Influenza B Status: Acute Assessment & Plan: -s/p Tamiflu (4) Acute renal failure (ARF) Status: Resolved (5) Elevated troponin Assessment & Plan: - Cardiology consulted, likely Type II due to respiratory failure, cardiac cath done and showed non-obstructive disease, patent stent in circumflex, EF 25%. (6) Elevated brain natriuretic peptide (BNP) level Status: Acute Assessment & Plan: - Cath with EF 25% thought to be due to severe hypoxia/respiratory failure, no obstructive disease seen, diuresed, Cardiology following. (7) Swelling of lower extremity Status: Acute Assessment & Plan: - Dopplers neg, continue lasix. (8) Delirium Status: Acute Assessment & Plan: Secondary to ICU/prolonged intubation- improving today c ompared to yesterday, continue to minimize lines and reorient as needed. 03/01 continuing to improve (9) DVT prophylaxis Status: Acute Assessment & Plan: Lovenox Clinical Quality Measures DVT/VTE Risk/Contraindication: Risk Factor Score Per Nursin RFS Level Per Nursing on Admit: 4+=Very High LAMONT RAMIREZ MD Mar 01, 2020 21:38
[2020-03-02] MEDS: RT-ALBUTEROL/IPRATROPIUM 3 ML (DUONEB) VIAL INH SCH ×6 (02:42→23:00)
[2020-03-02 03:28] LABS: BASOPHILS # (AUTO) 0.1 10^3/uL (0.0-0.1); BASOPHILS % (AUTO) 1 % (0-10); EOSINOPHILS # (AUTO) 0.2 10^3/uL (0.0-0.3); EOSINOPHILS % (AUTO) 3 % (0-10); HEMATOCRIT 35 % (35-52); HEMOGLOBIN 9.6 g/dL (11.5-16.0); LYMPHOCYTES # (AUTO) 1.2 10^3/uL (1.0-4.0); LYMPHOCYTES % (AUTO) 18 % (12-44); MEAN CORPUSCULAR HEMOGLOBIN 25 pg (25-34); MEAN CORPUSCULAR HGB CONC 28 g/dL (32-36); MEAN CORPUSCULAR VOLUME 90 fL (80-99); MEAN PLATELET VOLUME 9.8 fL (9.0-12.2); MONOCYTES # (AUTO) 0.7 10^3/uL (0.0-1.0); MONOCYTES % (AUTO) 11 % (0-12); NEUTROPHILS # (AUTO) 4.5 10^3/uL (1.8-7.8); NEUTROPHILS % (AUTO) 66 % (42-75); PLATELET COUNT 413 10^3/uL (130-400); WHITE BLOOD COUNT 6.8 10^3/uL (4.3-11.0)
[2020-03-02 04:08] LABS: CHLORIDE 104 MMOL/L (98-107); POTASSIUM 3.4 MMOL/L (3.6-5.0); SODIUM 145 MMOL/L (135-145)
[2020-03-02 04:09] LABS: CALCIUM 8.6 MG/DL (8.5-10.1)
[2020-03-02 04:10] LABS: GLUCOSE 85 MG/DL (70-105)
[2020-03-02 04:11] LABS: CARBON DIOXIDE 28 MMOL/L (21-32)
[2020-03-02 04:13] LABS: PHOSPHORUS 4.1 MG/DL (2.3-4.7)
[2020-03-02 04:14] LABS: CREATININE SERUM 0.72 MG/DL (0.60-1.30); GFR ESTIMATED > 60
[2020-03-02 04:15] LABS: BUN/CREATININE RATIO 19
[2020-03-02] MEDS: MAGNESIUM 1 GM/100 ML IVPB 100 ML IV SCH (04:46)
[2020-03-02] MEDS: KCL 20 MEQ TAB (K-DUR) PO SCH (04:46)
[2020-03-02] MEDS: inSUlin ASPART (NovoLOG) 1 UNIT/0.01 ML (CHARGE PER UNIT) SC SCH ×4 (04:47→20:56)
[2020-03-02] MEDS ORDERED: KCL 20 MEQ TAB (K-DUR) PO ONE (05:00)
[2020-03-02] MEDS: PIPERACILLIN/TAZOBACTAM (BULK) 4.5 GM in NS (IVPB) 100 ML IV SCH ×3 (05:24→20:54)
[2020-03-02] MEDS ORDERED: KCL 20 MEQ TAB (K-DUR) PO NR (07:45)
--- NOTE | 2020-03-02 08:16 | Pulmonary Progress Note ---
Subjective Time Seen by a Provider: 08:11 Sepsis Event Evaluation Height, Weight, BMI Height: 5'7.00" Weight: 220lbs. 0.0oz. 99.191460lo; 44.95 BMI Method:Stated Exam Exam Vital Signs Date Time Temp Pulse Resp B/P (MAP) Pulse Ox O2 Delivery O2 Flow Rate FiO2 03/02/20 07:53 96 Vapotherm 30.00 50 03/02/20 07:00 82 03/02/20 04:05 NIV Bilevel 30.00 03/02/20 04:00 36.5 87 26 146/91 99 NIV Bilevel 40.00 03/02/20 02:42 91 17 94 40.00 03/02/20 01:00 80 03/02/20 00:38 36.1 85 141/80 NIV Bilevel 40.00 03/01/20 23:00 85 28 100 40.00 03/01/20 21:00 94 NIV Bilevel 40.00 03/01/20 20:28 37.1 95 20 160/81 97 NIV Bilevel 40.00 03/01/20 19:47 94 17 91 03/01/20 19:16 96 Vapotherm 30.00 40 03/01/20 19:00 100 03/01/20 15:37 100 Vapotherm 40.00 40 03/01/20 15:27 37.2 92 20 156/89 97 NIV Bilevel 40.00 03/01/20 12:43 93 03/01/20 11:34 36.5 92 19 159/90 92 NIV Bilevel 40.00 03/01/20 11:24 91 Vapotherm 40.00 40 03/01/20 09:06 91 Vapotherm 40.00 40 03/01/20 09:00 94 NIV Bilevel 40.00 03/01/20 08:14 36.4 85 27 145/76 95 NIV Bilevel I & O 03/02/20 07:00 Intake Total 925 ml Output Total 425 ml Balance 500 ml Height & Weight Height: 5'7.00" Weight: 220lbs. 0.0oz. 99.835551ef; 44.95 BMI Method:Stated General Appearance: No Apparent Distress, Anxious, Obese HEENT: PERRL/EOMI; No Scleral Icterus (L), No Scleral Icterus (R) Neck: Normal Inspection, Non Tender Respiratory: Chest Non Tender, No Accessory Muscle Use, No Respiratory Distress, Other (on Bipap) Cardiovascular: Regular Rate, Rhythm, No Murmur, Normal Peripheral Pulses Capillary Refill: Less Than 3 Seconds Peripheral Pulses: 2+ Dorsalis Pedis (R), 2+ Left Dors-Pedis (L), 2+ Radial Pulses (R), 2+ Radial Pulses (L) Gastrointestinal: non tender, soft, no pulsatile mass; No distended Extremity: Normal Inspection, Normal Range of Motion, Non Tender, No Calf Tenderness, Other (3+ significant edema going up to the hip and including the abdomen) Neurologic/Psychiatric: Alert; No Oriented x3, No Normal Mood/Affect; Disoriented Skin: Normal Color, Warm/Dry Results Lab Laboratory Tests 03/01/20 05:20 03/02/20 03:09 Assessment/Plan Assessment/Plan Acute respiratory failure Influenza B positive with ARDS Pa02/Fi02 214 now - BiPaP HS - Zosyn -s/p Tamiflu -CXR reviewed - COVID is negative -Bilater dopplers - normal Pneumonia with probable pseudomonus and strep -Continue Zosyn for total of 14 days. -Zosyn auto stopped will reorder. Pt has had copious amounts of sputum production and had pseudomonus in sputum. Cellulitis -improved -Vanco, Zosyn started 02/16 -D/C Vanco 02/19 -Oswald cultures pending Hypokalemia -replace ARF - improved -D/C PhosLo -Monitor Hx of venous insuff CAD hx Chronic tobacco use STU CABAN DO Mar 02, 2020 08:16
--- NOTE | 2020-03-02 08:36 | Cardiology Progress Note ---
Subjective Date Seen by Provider: Mar 02, 2020 Time Seen by Provider: 08:20 Subjective/Events-last exam Patient sitting up in bed, NAD. Denies any chest pain or dyspnea. Review of Systems General: No Chills, No Night Sweats; Fatigue; No Malaise, No Appetite, No Other HEENT: No Head Aches, No Visual Changes, No Eye Pain, No Ear Pain, No Dysphasia, No Sinus Congestion, No Post Nasal Drip, No Sore Throat, No Other Pulmonary: Dyspnea; No Cough, No Pleuritic Chest Pain, No Other Cardiovascular: Edema; No: Chest Pain, Palpitations, Orthopnea, Paroxysmal Noc. Dyspnea, Lt Headedness, Other Objective-Cardiology Exam Last Set of Vital Signs Vital Signs 03/02/20 03/02/20 03/02/20 07:53 08:17 08:46 Temp 36.8 Pulse 90 Resp 15 B/P (MAP) 157/95 Pulse Ox 97 O2 Delivery Vapotherm O2 Flow Rate 30.00 45.00 FiO2 50 Capillary Refill : Less Than 3 SecondsLess Than 3 Seconds I&O Intake and Output 03/02/20 00:00 Intake Total 425 ml Output Total 275 ml Balance 150 ml Intake Oral 425 ml Output Urine Total 275 ml General: Alert, Mild Distress HEENT: Atraumatic, PERRLA Neck: Supple, No JVD Lungs: Other (ronchi) Heart: Regular Rate, No Murmurs Abdomen: Normal Bowel Sounds, Soft Extremities: No Clubbing, No Cyanosis, Other (1+ pitting edema) Neuro: Normal Speech Results Lab Laboratory Tests 03/02/20 03:09 A/P-Cardiology Admission Diagnosis Acute respiratory failure Non-ST elevation myocardial infarction Congestive heart failure Acute renal failure Assessment/Plan Acute respiratory failure, extubated and currently on Vapotherm. Managed by primary care team Influenza B infection, managed by Dr. Hummel Congestive heart failure, acute left ventricular systolic dysfunction, nonischemic cardiomyopathy, probably stunned myocardium due to hypoxemia. Responding well to diuretics, continue to monitor Hypokalemia, replace and monitor Coronary artery disease, history of myocardial infarction in 2009 transferred to [facility] and had a stent to the circumflex artery. Repeat cardiac catheterization was carried out on February 18, 2020 showing patent stent in the circumflex artery otherwise mild coronary artery disease, non obstructive disease with severe cardiomyopathy and ejection fraction 25 percent and elevated left ventricular end-diastolic pressure, continue on diuretics for now Chronic pedal edema, continue with diuretics and monitor response Acute on chronic renal insufficiency, improved, continue to monitor Tobaccoism, educated on smoking cessation Patient was seen and evaluated with Iveth, examination performed, management plan was discussed, agree with the current scribed note, I made few changes to the note using Italic font Patient was seen at bedside, sitting comfortably, breathing slightly better, was not wearing her oxygen with hypoxemia Continue on current medication, continue to monitor blood pressure Clinical Quality Measures DVT/VTE Risk/Contraindication: Risk Factor Score Per Nursin RFS Level Per Nursing on Admit: 4+=Very High IVETH SMITH Mar 02, 2020 8:36 am JOYCE ANDREA MD Mar 02, 2020 8:55 am
[2020-03-02] MEDS: ASPIRIN 81 MG CHEW (CHILDREN'S ASA) PO SCH (08:38)
[2020-03-02] MEDS: LOSARTAN 25 MG (COZAAR) TAB PO SCH (08:39)
[2020-03-02] MEDS: FUROSEMIDE 20 MG (LASIX) TAB PO SCH (08:39)
[2020-03-02] MEDS: NYSTATIN CREAM (MYCOSTATIN) 30 GM TUBE TP SCH ×3 (08:39→20:58)
[2020-03-02] MEDS: PANTOPRAZOLE 40 MG (PROTONIX) TAB PO SCH (08:39)
[2020-03-02] MEDS: meTOprolol TARTRATE 25 MG (LOPRESSOR) TABLET PO SCH ×2 (08:39→20:56)
[2020-03-02] MEDS: ENOXAPARIN 40 MG/0.4 ML (LOVENOX) SYR SC SCH ×2 (08:39→20:56)
--- NOTE | 2020-03-02 11:17 | NUR ---
CM/SS: Visit with pt as to her current status and to obtain some additional information from pt as to her previous level of function. Plan: Undetermined at this time. Patient is from home and would like to return there Summary: Pt is in her bed and has spilled her orange juice on her over the bed table as well as coffee in her bed while trying to take a drink. Pt seems to answer questions, but not all of the information is understandable or make sense. Dr Zheng enters the room as well as nursing staff to get the bed and pt's clothes changed. This worker will follow up. Pt should be moving to the 4th floor today. This worker will follow up.
--- NOTE | 2020-03-02 11:57 | Progress Note ---
Subjective Subjective/Events-last exam Afebrile, doing better, more alert this morning, able to explain why she is in the hospital although she doesn't recall getting here. Objective Exam Last Set of Vital Signs Vital Signs Date Time Temp Pulse Resp B/P (MAP) Pulse Ox O2 Delivery O2 Flow Rate FiO2 03/02/20 11:28 92 Vapotherm 30.00 45 03/02/20 08:17 36.8 90 15 157/95 Capillary Refill : Less Than 3 SecondsLess Than 3 Seconds I&O Intake and Output 03/02/20 00:00 Intake Total 425 ml Output Total 275 ml Balance 150 ml Intake Oral 425 ml Output Urine Total 275 ml General: Alert, Mild Distress Lungs: Normal Air Movement, Other (ronchi) Heart: Regular Rate Extremities: No Edema Neuro: Normal Speech Psych/Mental Status: Mental Status NL Results/Procedures Lab Laboratory Tests 03/01/20 15:31: Glucometer 79 03/01/20 20:31: Glucometer 97 03/02/20 03:09: White Blood Count 6.8, Red Blood Count 3.85, Hemoglobin 9.6L, Hematocrit 35, Mean Corpuscular Volume 90, Mean Corpuscular Hemoglobin 25, Mean Corpuscular Hemoglobin Concent 28L, Red Cell Distribution Width 19.7H, Platelet Count 413H, Mean Platelet Volume 9.8, Immature Granulocyte % (Auto) 1, Neutrophils (%) (Auto) 66, Lymphocytes (%) (Auto) 18, Monocytes (%) (Auto) 11, Eosinophils (%) (Auto) 3, Basophils (%) (Auto) 1, Neutrophils # (Auto) 4.5, Lymphocytes # (Auto) 1.2, Monocytes # (Auto) 0.7, Eosinophils # (Auto) 0.2, Basophils # (Auto) 0.1, Immature Granulocyte # (Auto) 0.1, Sodium Level 145, Potassium Level 3.4L, Chloride Level 104, Carbon Dioxide Level 28, Anion Gap 13, Blood Urea Nitrogen 14, Creatinine 0.72, Estimat Glomerular Filtration Rate > 60, BUN/Creatinine Ratio 19, Glucose Level 85, Calcium Level 8.6, Phosphorus Level 4.1, Magnesium Level 2.0 03/02/20 10:28: Glucometer 94 Microbiology 02/17/20 Blood Culture - Final, Complete No growth 02/17/20 Influenza Types A,B Antigen (THANG) - Final, Complete Assessment/Plan Assessment/Plan (1) Acute and chronic respiratory failure with hypoxia Status: Acute Assessment & Plan: - Patient intubated in ER, has been ventilated until this morning, currently on vapotherm at time of my exam. Remains on Zosyn. 02/28 needing bipap overnight and during day yesterday due to work of breathing, appears better this morning, continue to wean support as tolerated. 03/02 continues to improve, tolerating vapotherm and holding conversation today (2) Septic shock Status: Resolved Assessment & Plan: - Patient requiring pressors initially, Flu B positive, COVID negative, s/p oseltamavir course, remains on Zosyn- probably strep pneumo and pseudomonas in sputum. (3) Influenza B Status: Acute Assessment & Plan: -s/p Tamiflu (4) Acute renal failure (ARF) Status: Resolved (5) Elevated troponin Assessment & Plan: - Cardiology consulted, likely Type II due to respiratory failure, cardiac cath done and showed non-obstructive disease, patent stent in circumflex, EF 25%. (6) Elevated brain natriuretic peptide (BNP) level Status: Acute Assessment & Plan: - Cath with EF 25% thought to be due to severe hypoxia/respiratory failure, no obstructive disease seen, diuresed, Cardiology following. (7) Swelling of lower extremity Status: Acute Assessment & Plan: - Dopplers neg, continue lasix. (8) Delirium Status: Acute Assessment & Plan: Secondary to ICU/prolonged intubation- improving today c ompared to yesterday, continue to minimize lines and reorient as needed. 03/01 continuing to improve (9) Debility Status: Acute Assessment & Plan: Significant weakness after extubation, continue to work with PT. (10) DVT prophylaxis Status: Acute Assessment & Plan: Lovenox Clinical Quality Measures DVT/VTE Risk/Contraindication: Risk Factor Score Per Nursin RFS Level Per Nursing on Admit: 4+=Very High LAMONT RAMIREZ MD Mar 02, 2020 11:57
--- NOTE | 2020-03-02 12:08 | Physical Therapy Daily Note ---
PT Daily Note-Current Subjective Patient is very lethargic. Agrees to PT. Mental Status Patient Orientation: Confused Attachments: Oxygen (vapotherm), Peoples Catheter Transfers SCALE: Activities may be completed with or without assistive devices. 0-Rxpqxacjkw-kqhlskx completes the activity by him/herself with no assistance from a helper. 5-Set-up or Clean-up Assistance-helper sets up or cleans up; patient completes activity. [place] assists only prior to or following the activity. 4-Supervision or Touching Assistance-helper provides verbal cues and/or touching/steadying and/or contact guard assistance as patient completes activity. Assistance may be provided throughout the activity or intermittently. 3-Partial/Moderate Assistance-helper does LESS THAN HALF the effort. [place] lifts, holds or supports trunk or limbs, but provides less than half the effort. 2-Substantial/Maximal Assistance-helper does MORE THAN HALF the effort. [place] lifts or holds trunk or limbs and provides more than half the effort. 6-Jitdvyzdt-bfzzdy does ALL the effort. Patient does none of the effort to complete the activity. Or, the assistance of 2 or more helpers is required for the patient to complete the activity. If activity was not attempted, code reason: 7-Patient Refused. 9-Not Applicable-not attempted and the patient did not perform the activity before the current illness, exacerbation or injury. 10-Not Attempted due to Environmental Limitations-(lack of equipment, weather restraints, etc.). 88-Not Attempted due to Medical Conditions or Safety Concerns. Sit to Lying (QC): 1 (x 3) Lying to Sitting/Side of Bed(Q: 1 (x 3) dependent assist to attain and maintain sitting EOB x 10 min Exercises Supine Ex: Ankle pumps, Heel Slides Supine Reps: 10 (AAROM) Seated Therapy Exercises: Long arc quads Seated Reps: 15 (AAROM) Assessment Patient tolerates minimal activity and continues to require dependent assist of 2-3 people. PT to increase activity as tolerated by patient. PT Short Term Goals Short Term Goals Time Frame: Mar 17, 2020 Roll Left & Right: 2 Sit to lyin Lying to sitting on side of be: 2 Sit to stand: 2 Chair/lmh-qa-bupnz transfer: 2 PT Longterm Goals Longterm Goals PT Longterm Goals Time Frame: Apr 01, 2020 Roll Left & Right (QC): 4 Sit to Lying (QC): 4 Lying-Sitting on Side/Bed(QC): 4 Sit to Stand (QC): 4 Chair/Eht-xy-Ooonm Xfer(QC): 4 Toilet Transfer (QC): 4 Car Transfer (QC): 4 Does the Patient Walk: Yes Walk 10 feet (QC): 4 Walk 50ft with 2 Turns (QC): 4 PT Plan Treatment/Plan Treatment Plan: Continue Plan of Care Treatment Plan: Bed Mobility, Education, Functional Activity Cristela, Functional Strength, Gait, Safety, Therapeutic Exercise, Transfers Treatment Duration: Apr 01, 2020 Frequency: 6 times per week Estimated Hrs Per Day: .5 hour per day Patient and/or Family Agrees t: Yes Time/GCodes Time In: 1100 Time Out: 1114 Total Billed Treatment Time: 14 Total Billed Treatment 1 visit EX 14 min THOR DIAL PT Mar 02, 2020 12:07
--- NOTE | 2020-03-02 23:04 | NUR ---
BEDSIDE REPORT GIVEN TO RECEIVING NURSE. PT GOING TO ROOM 407.
--- NOTE | 2020-03-02 23:09 | NUR ---
This RN assumed care for this pt at this time. PT alert and oriented and uses call light approporiately.
[2020-03-03] VITALS (9 sets, daily range): BP systolic 98–133; BP diastolic 50–71
[2020-03-03] MEDS: RT-ALBUTEROL/IPRATROPIUM 3 ML (DUONEB) VIAL INH SCH ×6 (01:10→22:34)
[2020-03-03] MEDS: PIPERACILLIN/TAZOBACTAM (BULK) 4.5 GM in NS (IVPB) 100 ML IV SCH ×3 (05:26→22:45)
[2020-03-03] MEDS: inSUlin ASPART (NovoLOG) 1 UNIT/0.01 ML (CHARGE PER UNIT) SC SCH ×4 (06:48→20:20)
[2020-03-03 08:25] LABS: BASOPHILS # (AUTO) 0.1 10^3/uL (0.0-0.1); BASOPHILS % (AUTO) 1 % (0-10); EOSINOPHILS # (AUTO) 0.2 10^3/uL (0.0-0.3); EOSINOPHILS % (AUTO) 4 % (0-10); HEMATOCRIT 40 % (35-52); HEMOGLOBIN 10.9 g/dL (11.5-16.0); LYMPHOCYTES % (AUTO) 15 % (12-44); MEAN CORPUSCULAR HEMOGLOBIN 25 pg (25-34); MEAN CORPUSCULAR HGB CONC 27 g/dL (32-36); MEAN CORPUSCULAR VOLUME 91 fL (80-99); MEAN PLATELET VOLUME 9.7 fL (9.0-12.2); MONOCYTES # (AUTO) 0.7 10^3/uL (0.0-1.0); MONOCYTES % (AUTO) 10 % (0-12); NEUTROPHILS # (AUTO) 4.6 10^3/uL (1.8-7.8); NEUTROPHILS % (AUTO) 69 % (42-75); PLATELET COUNT 405 10^3/uL (130-400); WHITE BLOOD COUNT 6.6 10^3/uL (4.3-11.0)
[2020-03-03] MEDS: PANTOPRAZOLE 40 MG (PROTONIX) TAB PO SCH (08:26)
[2020-03-03] MEDS: ASPIRIN 81 MG CHEW (CHILDREN'S ASA) PO SCH (08:26)
[2020-03-03] MEDS: ENOXAPARIN 40 MG/0.4 ML (LOVENOX) SYR SC SCH ×2 (08:27→20:16)
[2020-03-03] MEDS: LOSARTAN 25 MG (COZAAR) TAB PO SCH (08:27)
[2020-03-03] MEDS: FUROSEMIDE 20 MG (LASIX) TAB PO SCH (08:27)
[2020-03-03] MEDS: meTOprolol TARTRATE 25 MG (LOPRESSOR) TABLET PO SCH ×2 (08:27→20:18)
[2020-03-03] MEDS: NYSTATIN CREAM (MYCOSTATIN) 30 GM TUBE TP SCH ×3 (08:28→20:19)
[2020-03-03 08:49] LABS: BUN/CREATININE RATIO 14; CALCIUM 8.9 MG/DL (8.5-10.1); CARBON DIOXIDE 29 MMOL/L (21-32); CHLORIDE 102 MMOL/L (98-107); CREATININE SERUM 0.72 MG/DL (0.60-1.30); GFR ESTIMATED > 60; GLUCOSE 95 MG/DL (70-105); PHOSPHORUS 4.6 MG/DL (2.3-4.7); POTASSIUM 3.6 MMOL/L (3.6-5.0); SODIUM 146 MMOL/L (135-145)
--- NOTE | 2020-03-03 10:00 | NUR ---
INCONT LARGE LIQUID BROWN STOOL, BUTT PASTE APPLEIED, [place]IAM AREA RED, SMALL OPEN SORE ON BUTTOCKS, ALLEVYN APPLIED, ALSO APPLIED TO BOTH HEELS, AGUILERA PATENT, CALL LIGHT WITHIN REACH, O2 ON PER NC AT 6 LITERS PER HIGH FLOOR TUBING
--- NOTE | 2020-03-03 10:50 | Progress Note ---
Subjective Subjective/Events-last exam Afebrile, feeling pretty well, hoping to get out of the hospital soon. Objective Exam Last Set of Vital Signs Vital Signs Date Time Temp Pulse Resp B/P (MAP) Pulse Ox O2 Delivery O2 Flow Rate FiO2 03/03/20 10:31 93 High Flow N/C 4.00 03/03/20 08:00 35.7 105 18 133/61 (85) 03/03/20 01:11 45 Capillary Refill : Less Than 3 SecondsLess Than 3 Seconds I&O Intake and Output 03/03/20 00:00 Intake Total 1090 ml Output Total 1250 ml Balance -160 ml Intake Oral 850 ml IV Total 240 ml Output Urine Total 1250 ml # Bowel Movements 2 General: Alert, No Acute Distress Lungs: Clear to Auscultation, Normal Air Movement Heart: Regular Rate, No Murmurs Neuro: Normal Speech Psych/Mental Status: Mental Status NL, Mood NL Results/Procedures Lab Laboratory Tests 03/02/20 15:12: Glucometer 79 03/02/20 20:14: Glucometer 77 03/03/20 06:47: Glucometer 107 03/03/20 08:15: White Blood Count 6.6, Red Blood Count 4.38, Hemoglobin 10.9L, Hematocrit 40, Mean Corpuscular Volume 91, Mean Corpuscular Hemoglobin 25, Mean Corpuscular Hemoglobin Concent 27L, Red Cell Distribution Width 19.6H, Platelet Count 405H, Mean Platelet Volume 9.7, Immature Granulocyte % (Auto) 2, Neutrophils (%) (Auto) 69, Lymphocytes (%) (Auto) 15, Monocytes (%) (Auto) 10, Eosinophils (%) (Auto) 4, Basophils (%) (Auto) 1, Neutrophils # (Auto) 4.6, Lymphocytes # (Auto) 1.0, Monocytes # (Auto) 0.7, Eosinophils # (Auto) 0.2, Basophils # (Auto) 0.1, Immature Granulocyte # (Auto) 0.1, Sodium Level 146H, Potassium Level 3.6, Chloride Level 102, Carbon Dioxide Level 29, Anion Gap 15H, Blood Urea Nitrogen 10, Creatinine 0.72, Estimat Glomerular Filtration Rate > 60, BUN/Creatinine Ratio 14, Glucose Level 95, Calcium Level 8.9, Phosphorus Level 4.6, Magnesium Level 2.0 03/03/20 10:42: Glucometer 123H Microbiology 02/17/20 Blood Culture - Final, Complete No growth 02/17/20 Influenza Types A,B Antigen (THANG) - Final, Complete Assessment/Plan Assessment/Plan (1) Acute and chronic respiratory failure with hypoxia Status: Acute Assessment & Plan: - Patient intubated in ER, has been ventilated until this morning, currently on vapotherm at time of my exam. Remains on Zosyn. 02/28 needing bipap overnight and during day yesterday due to work of breathing, appears better this morning, continue to wean support as tolerated. 03/02 continues to improve, tolerating vapotherm and holding conversation today 03/03- continued improvement, on 5 lpm this am, Zosyn continued to complete [address] Hummel (2) Septic shock Status: Resolved Assessment & Plan: - Patient requiring pressors initially, Flu B positive, COVID negative, s/p oseltamavir course, remains on Zosyn- probable strep pneumo and pseudomonas in sputum. (3) Influenza B Status: Acute Assessment & Plan: -s/p Tamiflu (4) Acute renal failure (ARF) Status: Resolved (5) Elevated troponin Assessment & Plan: - Cardiology consulted, likely Type II due to respiratory failure, cardiac cath done and showed non-obstructive disease, patent stent in circumflex, EF 25%. (6) Elevated brain natriuretic peptide (BNP) level Status: Acute Assessment & Plan: - Cath with EF 25% thought to be due to severe hypoxia/respiratory failure, no obstructive disease seen, diuresed, Cardiology following. (7) Swelling of lower extremity Status: Acute Assessment & Plan: - Dopplers neg, continue lasix. (8) Delirium Status: Resolved Assessment & Plan: Secondary to ICU/prolonged intubation- improving today compared to yesterday, continue to minimize lines and reorient as needed. 03/01 continuing to improve (9) Debility Status: Acute Assessment & Plan: Significant weakness after extubation, continue to work with PT. (10) DVT prophylaxis Status: Acute Assessment & Plan: Lovenox Clinical Quality Measures DVT/VTE Risk/Contraindication: Risk Factor Score Per Nursin RFS Level Per Nursing on Admit: 4+=Very High LAMONT RAMIREZ MD Mar 03, 2020 10:50
--- NOTE | 2020-03-03 12:55 | Physical Therapy Daily Note ---
PT Daily Note-Current Subjective Pt presents supine in bed upon arrival to room, agreeable to therapy treatment at this time. Pt denies pain. Appearance Following session, pt returned to supine in bed with SCDs in place. Call light and tray within reach, all needs met at this time. Mental Status Patient Orientation: Confused, Place Attachments: Oxygen (5L NC ), Peoples Catheter Transfers SCALE: Activities may be completed with or without assistive devices. 3-Zctorwcbfp-twuabzk completes the activity by him/herself with no assistance from a helper. 5-Set-up or Clean-up Assistance-helper sets up or cleans up; patient completes activity. [place] assists only prior to or following the activity. 4-Supervision or Touching Assistance-helper provides verbal cues and/or touching/steadying and/or contact guard assistance as patient completes activity. Assistance may be provided throughout the activity or intermittently. 3-Partial/Moderate Assistance-helper does LESS THAN HALF the effort. [place] lifts, holds or supports trunk or limbs, but provides less than half the effort. 2-Substantial/Maximal Assistance-helper does MORE THAN HALF the effort. [place] lifts or holds trunk or limbs and provides more than half the effort. 6-Dyuigwxbh-pagkil does ALL the effort. Patient does none of the effort to complete the activity. Or, the assistance of 2 or more helpers is required for the patient to complete the activity. If activity was not attempted, code reason: 7-Patient Refused. 9-Not Applicable-not attempted and the patient did not perform the activity before the current illness, exacerbation or injury. 10-Not Attempted due to Environmental Limitations-(lack of equipment, weather restraints, etc.). 88-Not Attempted due to Medical Conditions or Safety Concerns. Roll Left & Right (QC): 1 (x3) Sit to Lying (QC): 1 (x3) Lying to Sitting/Side of Bed(Q: 1 (x2) Pt dependent to sit at EOB x2 people assist. Pt able to initiate walking legs to EOB, but requires moderate assistance. Pt sat EOB x 10 minutes with max A to maintain seated posture, as pt tends to be retropulsive in seated position. Exercises Supine Ex: Ankle pumps, Heel Slides Seated Therapy Exercises: Long arc quads Assessment Current Status: Fair Progress Pt tolerated increased activity this date, and able to hold seated balance with improvement; however, she continues to require maximal assistance for all bed mobility. Will continue to progress activity tolerance as pt tolerates. PT Short Term Goals Short Term Goals Time Frame: Mar 17, 2020 Roll Left & Right: 2 Sit to lyin Lying to sitting on side of be: 2 Sit to stand: 2 Chair/gwq-cs-zcvsx transfer: 2 PT Prison Goals [employer] Goals PT Prison Goals Time Frame: Apr 01, 2020 Roll Left & Right (QC): 4 Sit to Lying (QC): 4 Lying-Sitting on Side/Bed(QC): 4 Sit to Stand (QC): 4 Chair/Opc-ug-Dsrkf Xfer(QC): 4 Toilet Transfer (QC): 4 Car Transfer (QC): 4 Does the Patient Walk: Yes Walk 10 feet (QC): 4 Walk 50ft with 2 Turns (QC): 4 PT Plan Problem List Problem List: Activity Tolerance, Functional Strength, Safety, Balance, Gait, Transfer, Bed Mobility, ROM Treatment/Plan Treatment Plan: Continue Plan of Care Treatment Plan: Bed Mobility, Education, Functional Activity Cristela, Functional Strength, Gait, Safety, Therapeutic Exercise, Transfers Treatment Duration: Apr 01, 2020 Frequency: 6 times per week Estimated Hrs Per Day: .5 hour per day Patient and/or Family Agrees t: Yes Time/GCodes Time In: 900 Time Out: 915 Total Billed Treatment 1 visit FA (15') PETER VILLALPANDO PT Mar 03, 2020 12:55
[2020-03-03] MEDS: ZINC OXIDE 16% OINT (BUTT PASTE) 57 GM TUBE TOP PRN (13:13)
--- NOTE | 2020-03-03 14:25 | NUR ---
"RD ASSESSMENT PMHx: COPD; hypercholesterolemia; HTN; GERD; hiatal hernia; PT INTERACTION: Pt was semi-awake and pleasant during nutrition assessment. Pt states current appetite is okay. Note avg PO intake <25% x3d, per chart review. Pt states issues with constipation. Note last BM was 03/03, and pt not currently on bowel regimen per chart review. ABNORMAL NUTRITION-RELATED LAB VALUES LOW: HIGH: Na 146; Est. kcal needs: 8340-5194 kcal | 15-18 kcal/kg Est. Pro needs: 102-127 g Pro | 0.8-1.0 g Pro/kg PES STATEMENT: Inadequate oral intake (NI-2.1) related to loss of appetite and constipation, as evidenced by pt interview and avg PO intake <25% x3d. INTERVENTION: Continue with current diet order of Heart Healthy diet, with modifier of DYS2 Mechanically Altered. Would recommend advancing to regular consistency if pt has no issues with chewing/swallowing food. Add Ensure Enlive (vary) to meals TID, for increased kcal intake. Provides 350 kcal and 20 g Pro per serving. Will continue to follow and reassess as pt needs, intake, and status change. Ivon Santana, MS RD LD"
--- NOTE | 2020-03-03 14:50 | NUR ---
REPORT GIVEN TO BEBA DURAN TO ASSUME NURSING CARE
--- NOTE | 2020-03-03 16:43 | NUR ---
Pt more awake, looking around, answered question of, "did you sleep ok last night ?" Pt states, "yeh, I slept great, finally."
--- NOTE | 2020-03-03 16:54 | NUR ---
Pt more alert & talking, joking.
[2020-03-03 17:03] LABS: ABG BASE EXCESS 8.4 MMOL/L (-2.5-2.5); ABG OXYGEN SATURATION 95 % (94-100); ABG PCO2 70 MMHG (35-45); ABG PO2 81 MMHG (79-93); ABG TCO2 36.8 MMOL/L (21.0-31.0)
[2020-03-03 17:06] LABS: ABG PH 7.31 (7.37-7.43); ALLENS TEST POSITIVE; INSPIRED O2 60%; PATIENT TEMP 36.6; VENTILATOR NO
[2020-03-03 19:29] LABS: ABG OXYGEN SATURATION 92 % (94-100); ABG PCO2 63 MMHG (35-45); ABG PH 7.35 (7.37-7.43); ABG PO2 67 MMHG (79-93); ABG TCO2 36.7 MMOL/L (21.0-31.0); ALLENS TEST YES-POS; INSPIRED O2 30%; PATIENT TEMP 36.4; VENTILATOR NO
--- NOTE | 2020-03-03 19:49 | NUR ---
LEATHER GRADER AND DR. REECE NOTIFIED OF ABG RESULTS.
[2020-03-03] MEDS ORDERED: NS (IVPB) 0 ML ONE (22:33)
[2020-03-03] MEDS ORDERED: PIPERACILLIN/TAZO 4.5 GM VIAL (ZOSYN) IV ONE ×2 (22:33→22:34)
[2020-03-03] MEDS ORDERED: NS (IVPB) 100 ML ONE (22:35)
[2020-03-04 00:32] VITALS: BP 115/74
[2020-03-04] MEDS: RT-ALBUTEROL/IPRATROPIUM 3 ML (DUONEB) VIAL INH SCH ×6 (03:31→23:13)
[2020-03-04 04:15] VITALS: BP 114/66
[2020-03-04 05:01] LABS: BASOPHILS % (AUTO) 1 % (0-10); EOSINOPHILS # (AUTO) 0.2 10^3/uL (0.0-0.3); EOSINOPHILS % (AUTO) 3 % (0-10); HEMATOCRIT 34 % (35-52); LYMPHOCYTES # (AUTO) 1.3 10^3/uL (1.0-4.0); LYMPHOCYTES % (AUTO) 23 % (12-44); MEAN CORPUSCULAR HEMOGLOBIN 26 pg (25-34); MEAN CORPUSCULAR HGB CONC 29 g/dL (32-36); MEAN CORPUSCULAR VOLUME 87 fL (80-99); MEAN PLATELET VOLUME 10.4 fL (9.0-12.2); MONOCYTES # (AUTO) 0.6 10^3/uL (0.0-1.0); MONOCYTES % (AUTO) 10 % (0-12); NEUTROPHILS # (AUTO) 3.6 10^3/uL (1.8-7.8); NEUTROPHILS % (AUTO) 62 % (42-75); PLATELET COUNT 482 10^3/uL (130-400); WHITE BLOOD COUNT 5.8 10^3/uL (4.3-11.0)
[2020-03-04 05:20] LABS: CHLORIDE 99 MMOL/L (98-107); SODIUM 142 MMOL/L (135-145)
[2020-03-04 05:21] LABS: CALCIUM 8.5 MG/DL (8.5-10.1)
[2020-03-04 05:22] LABS: GLUCOSE 84 MG/DL (70-105)
[2020-03-04 05:23] LABS: CARBON DIOXIDE 32 MMOL/L (21-32)
[2020-03-04 05:25] LABS: PHOSPHORUS 3.2 MG/DL (2.3-4.7)
[2020-03-04 05:26] LABS: BUN/CREATININE RATIO 14; CREATININE SERUM 0.64 MG/DL (0.60-1.30); GFR ESTIMATED > 60
[2020-03-04 05:28] LABS: MAGNESIUM 1.7 MG/DL (1.6-2.4)
[2020-03-04] MEDS: inSUlin ASPART (NovoLOG) 1 UNIT/0.01 ML (CHARGE PER UNIT) SC SCH ×4 (05:52→21:21)
[2020-03-04 08:11] VITALS: BP 154/82
[2020-03-04] MEDS: ENOXAPARIN 40 MG/0.4 ML (LOVENOX) SYR SC SCH ×2 (09:23→20:04)
[2020-03-04] MEDS: meTOprolol TARTRATE 25 MG (LOPRESSOR) TABLET PO SCH ×2 (09:24→20:04)
[2020-03-04] MEDS: NYSTATIN CREAM (MYCOSTATIN) 30 GM TUBE TP SCH ×3 (09:25→20:05)
[2020-03-04] MEDS: PANTOPRAZOLE 40 MG (PROTONIX) TAB PO SCH (09:25)
[2020-03-04] MEDS: LOSARTAN 25 MG (COZAAR) TAB PO SCH (09:25)
[2020-03-04] MEDS: FUROSEMIDE 20 MG (LASIX) TAB PO SCH (09:25)
[2020-03-04] MEDS: ASPIRIN 81 MG CHEW (CHILDREN'S ASA) PO SCH (09:27)
--- NOTE | 2020-03-04 10:09 | Cardiology Progress Note ---
Subjective Date Seen by Provider: Mar 04, 2020 Time Seen by Provider: 10:07 Subjective/Events-last exam Patient is laying down in bed, generalized fatigue. Asking to go home Review of Systems General: No Chills, No Night Sweats; Fatigue, Malaise; No Appetite, No Other HEENT: No Head Aches, No Visual Changes, No Eye Pain, No Ear Pain, No Dysphasia, No Sinus Congestion, No Post Nasal Drip, No Sore Throat, No Other Pulmonary: Dyspnea; No Cough, No Pleuritic Chest Pain, No Other Cardiovascular: Edema; No: Chest Pain, Palpitations, Orthopnea, Paroxysmal Noc. Dyspnea, Lt Headedness, Other Objective-Cardiology Exam Last Set of Vital Signs Vital Signs 03/03/20 03/04/20 03/04/20 20:15 08:11 08:53 Temp 36.1 Pulse 89 Resp 22 B/P (MAP) 154/82 (106) Pulse Ox 97 O2 Delivery High Flow N/C O2 Flow Rate 5.00 FiO2 40 Capillary Refill : Less Than 3 SecondsLess Than 3 Seconds I&O Intake and Output 03/04/20 00:00 Intake Total 1220 ml Output Total 1195 ml Balance 25 ml Intake Oral 1100 ml IV Total 120 ml Output Urine Total 1195 ml # Bowel Movements 3 General: Alert, Cooperative, No Acute Distress HEENT: Atraumatic, PERRLA Neck: Supple, No JVD Lungs: Clear to Auscultation, Normal Air Movement Heart: Regular Rate, Normal S1, Normal S2, No Murmurs Abdomen: Normal Bowel Sounds, Soft Extremities: No Clubbing, No Cyanosis, Other (peripheral edema) Skin: No Rashes Neuro: Normal Speech Psych/Mental Status: Mental Status NL, Mood NL Results Lab Laboratory Tests 03/04/20 04:35 A/P-Cardiology Admission Diagnosis Acute respiratory failure Non-ST elevation myocardial infarction Congestive heart failure Acute renal failure Assessment/Plan Status post acute respiratory failure secondary to influenza B infection, extubated and doing better, still oxygen dependent, managed by primary care team. Congestive heart failure, acute left ventricular systolic dysfunction, nonischemic cardiomyopathy, probably stunned myocardium due to hypoxemia. Responding well to diuretics, continue to monitor Hypokalemia, replace and monitor Coronary artery disease, history of myocardial infarction in 2009 transferred to [facility] and had a stent to the circumflex artery. Repeat cardiac catheterization was carried out on February 18, 2020 showing patent stent in the circumflex artery otherwise mild coronary artery disease, non obstructive disease with severe cardiomyopathy and ejection fraction 25 percent and elevated left ventricular end-diastolic pressure, continue on diuretics for now Chronic pedal edema, continue with diuretics and monitor response Acute on chronic renal insufficiency, improved, continue to monitor Tobaccoism, educated on smoking cessation Obesity, BMI 44. Clinical Quality Measures DVT/VTE Risk/Contraindication: Risk Factor Score Per Nursin RFS Level Per Nursing on Admit: 4+=Very High JOYCE ANDREA MD Mar 04, 2020 10:09
[2020-03-04] MEDS ORDERED: KCL 20 MEQ TAB (K-DUR) PO ONE (10:15)
[2020-03-04 11:12] VITALS: BP 139/86
--- NOTE | 2020-03-04 12:03 | Progress Note - Hospitalist ---
Subjective HPI/CC On Admission Date Seen by Provider: Mar 04, 2020 Time Seen by Provider: 11:15 Subjective/Events-last exam Patient complains of continued weakness but is adamant that she is going home. She is says that physical therapy has not been showing up for her although in discussing this with the nurse she notes that physical therapy has been unable to get the patient to even stand by herself. Review of Systems Neurological: Weakness Objective Exam Vital Signs Vital Signs Date Time Temp Pulse Resp B/P (MAP) Pulse Ox O2 Delivery O2 Flow Rate FiO2 03/04/20 09:00 94 High Flow N/C 5.00 03/04/20 08:53 89 22 03/04/20 08:11 36.1 03/03/20 20:15 40 Capillary Refill : Less Than 3 SecondsLess Than 3 Seconds General Appearance: Chronically ill Neck: Limited Range of Motion Respiratory: Chest Non Tender, Lungs Clear, Normal Breath Sounds, No Accessory Muscle Use, No Respiratory Distress Cardiovascular: Regular Rate, Rhythm, Normal Peripheral Pulses Gastrointestinal: Normal Bowel Sounds, No Pulsatile Mass, Non Tender, Soft Extremity: Pedal Edema Neurologic/Psychiatric: Alert, Oriented x3, No Motor/Sensory Deficits, Normal Mood/Affect Skin: Normal Color, Warm/Dry Results/Procedures Lab Laboratory Tests 03/04/20 04:35 Patient resulted labs reviewed. Assessment/Plan Critical Care Ventilator Management (pt sedated and on ventilator) Diagnosis/Problems Diagnosis/Problems (1) Influenza B Status: Acute (2) Swelling of lower extremity Status: Acute (3) DVT prophylaxis Status: Acute (4) Acute and chronic respiratory failure with hypoxia Status: Acute Assessment & Plan: Patient had increased somnolence yesterday and ABG reflected hypercapnic respiratory failure. She was placed on BiPAP with improvement. (5) Debility Status: Acute Clinical Quality Measures DVT/VTE Risk/Contraindication: Risk Factor Score Per Nursin RFS Level Per Nursing on Admit: 4+=Very High JOSÉ MIGUEL REECE MD Mar 04, 2020 12:03
--- NOTE | 2020-03-04 12:47 | Physical Therapy Daily Note ---
PT Daily Note-Current Subjective Pt. in bed, states she wants to get up and walk and that therapy has not been working with her. She has no c/o pain. Mental Status Patient Orientation: Confused Attachments: SCD's, Oxygen, Peoples Catheter Transfers SCALE: Activities may be completed with or without assistive devices. 7-Msgusosmbd-kqitlsa completes the activity by him/herself with no assistance from a helper. 5-Set-up or Clean-up Assistance-helper sets up or cleans up; patient completes activity. [place] assists only prior to or following the activity. 4-Supervision or Touching Assistance-helper provides verbal cues and/or touching/steadying and/or contact guard assistance as patient completes activity. Assistance may be provided throughout the activity or intermittently. 3-Partial/Moderate Assistance-helper does LESS THAN HALF the effort. [place] lifts, holds or supports trunk or limbs, but provides less than half the effort. 2-Substantial/Maximal Assistance-helper does MORE THAN HALF the effort. [place] lifts or holds trunk or limbs and provides more than half the effort. 1-Wblmwnsvz-byvuts does ALL the effort. Patient does none of the effort to complete the activity. Or, the assistance of 2 or more helpers is required for the patient to complete the activity. If activity was not attempted, code reason: 7-Patient Refused. 9-Not Applicable-not attempted and the patient did not perform the activity before the current illness, exacerbation or injury. 10-Not Attempted due to Environmental Limitations-(lack of equipment, weather restraints, etc.). 88-Not Attempted due to Medical Conditions or Safety Concerns. Roll Left & Right (QC): 1 Sit to Lying (QC): 1 Lying to Sitting/Side of Bed(Q: 1 Treatments working on transfers to edge of bed and attempted standing x 3 Assessment Current Status: Fair Progress Pt. continues to require assist x 2 for all transfers but patient was able to complete more of the task requiring at times min-mod A x 2. Pt. sat EOB for 10 minutes with occasional min assist. We attempted to stand x 3, however patient unable to clear buttocks from bed. Pt. returned to supine position, O2 in situ and all needs met. Pt. is slowly progressing her mobility and strength. PT Short Term Goals Short Term Goals Time Frame: Mar 17, 2020 Roll Left & Right: 2 Sit to lyin Lying to sitting on side of be: 2 Sit to stand: 2 Chair/eut-yd-mlpzi transfer: 2 PT Long-Term Goals Long-Term Goals PT Aniline Press Worker Goals Time Frame: Apr 01, 2020 Roll Left & Right (QC): 4 Sit to Lying (QC): 4 Lying-Sitting on Side/Bed(QC): 4 Sit to Stand (QC): 4 Chair/Czm-fs-Qgtxu Xfer(QC): 4 Toilet Transfer (QC): 4 Car Transfer (QC): 4 Does the Patient Walk: Yes Walk 10 feet (QC): 4 Walk 50ft with 2 Turns (QC): 4 PT Plan Treatment/Plan Treatment Plan: Continue Plan of Care Treatment Plan: Bed Mobility, Education, Functional Activity Cristela, Functional Strength, Gait, Safety, Therapeutic Exercise, Transfers Treatment Duration: Apr 01, 2020 Frequency: 6 times per week Estimated Hrs Per Day: .5 hour per day Patient and/or Family Agrees t: Yes Time/GCodes Time In: 925 Time Out: 951 Total Billed Treatment Time: 26 Total Billed Treatment 1, FA x 2 ALFREDO INIGUEZ PT Mar 04, 2020 12:47
[2020-03-04] MEDS ORDERED: ACETAMINOPHEN 325 MG TABLET ONE (15:55)
[2020-03-04] MEDS: ACETAMINOPHEN 325 MG TABLET PO PRN (16:00)
[2020-03-04] MEDS: ZINC OXIDE 16% OINT (BUTT PASTE) 57 GM TUBE TOP PRN (16:01)
[2020-03-04 16:19] VITALS: BP 151/81
[2020-03-04 20:02] VITALS: BP 138/72
--- NOTE | 2020-03-04 20:15 | NUR ---
PT REQUESTING BIPAP BE PUT ON SO SHE CAN ATTEMPT TO GO TO SLEEP-PT'S REQUEST FULFILLED.
[2020-03-05] VITALS (7 sets, daily range): BP systolic 129–151; BP diastolic 77–87
[2020-03-05] MEDS: RT-ALBUTEROL/IPRATROPIUM 3 ML (DUONEB) VIAL INH SCH ×7 (02:49→22:55)
[2020-03-05 04:41] LABS: BASOPHILS % (AUTO) 1 % (0-10); EOSINOPHILS # (AUTO) 0.2 10^3/uL (0.0-0.3); EOSINOPHILS % (AUTO) 4 % (0-10); HEMATOCRIT 35 % (35-52); HEMOGLOBIN 10.1 g/dL (11.5-16.0); LYMPHOCYTES # (AUTO) 1.2 10^3/uL (1.0-4.0); LYMPHOCYTES % (AUTO) 20 % (12-44); MEAN CORPUSCULAR HEMOGLOBIN 25 pg (25-34); MEAN CORPUSCULAR HGB CONC 29 g/dL (32-36); MEAN CORPUSCULAR VOLUME 88 fL (80-99); MEAN PLATELET VOLUME 9.8 fL (9.0-12.2); MONOCYTES # (AUTO) 0.7 10^3/uL (0.0-1.0); MONOCYTES % (AUTO) 11 % (0-12); NEUTROPHILS # (AUTO) 3.7 10^3/uL (1.8-7.8); NEUTROPHILS % (AUTO) 63 % (42-75); PLATELET COUNT 385 10^3/uL (130-400); WHITE BLOOD COUNT 5.8 10^3/uL (4.3-11.0)
[2020-03-05 04:57] LABS: CHLORIDE 98 MMOL/L (98-107); POTASSIUM 2.9 MMOL/L (3.6-5.0); SODIUM 145 MMOL/L (135-145)
[2020-03-05 04:58] LABS: CALCIUM 8.7 MG/DL (8.5-10.1)
[2020-03-05 04:59] LABS: GLUCOSE 98 MG/DL (70-105)
[2020-03-05 05:00] LABS: CARBON DIOXIDE 34 MMOL/L (21-32)
[2020-03-05 05:03] LABS: BUN/CREATININE RATIO 13; CREATININE SERUM 0.62 MG/DL (0.60-1.30); GFR ESTIMATED > 60
[2020-03-05 05:04] LABS: MAGNESIUM 1.6 MG/DL (1.6-2.4)
[2020-03-05] MEDS: inSUlin ASPART (NovoLOG) 1 UNIT/0.01 ML (CHARGE PER UNIT) SC SCH ×4 (05:16→20:32)
[2020-03-05] MEDS ORDERED: KCL 20 MEQ TAB (K-DUR) PO ONE ×2 (07:30→11:30)
[2020-03-05] MEDS ORDERED: MAGNESIUM 1 GM/100 ML IVPB 100 ML IV ONE ×2 (07:30→11:30)
[2020-03-05] MEDS ORDERED: FUROSEMIDE 40 MG/4 ML INJ (LASIX) IVP ONE ×2 (07:30→11:30)
[2020-03-05] MEDS: PANTOPRAZOLE 40 MG (PROTONIX) TAB PO SCH (08:57)
[2020-03-05] MEDS: LOSARTAN 25 MG (COZAAR) TAB PO SCH (08:57)
[2020-03-05] MEDS: ASPIRIN 81 MG CHEW (CHILDREN'S ASA) PO SCH (08:57)
[2020-03-05] MEDS: meTOprolol TARTRATE 25 MG (LOPRESSOR) TABLET PO SCH ×2 (08:57→20:30)
[2020-03-05] MEDS: FUROSEMIDE 20 MG (LASIX) TAB PO SCH (08:57)
[2020-03-05] MEDS: ENOXAPARIN 40 MG/0.4 ML (LOVENOX) SYR SC SCH ×2 (08:58→20:30)
[2020-03-05] MEDS: NYSTATIN CREAM (MYCOSTATIN) 30 GM TUBE TP SCH ×3 (08:58→20:30)
--- NOTE | 2020-03-05 10:33 | Cardiology Progress Note ---
Subjective Date Seen by Provider: Mar 05, 2020 Time Seen by Provider: 10:32 Subjective/Events-last exam Patient is laying down in bed, feeling better, swelling is better. Review of Systems General: No Chills, No Night Sweats; Fatigue, Malaise; No Appetite, No Other HEENT: No Head Aches, No Visual Changes, No Eye Pain, No Ear Pain, No Dysphasia, No Sinus Congestion, No Post Nasal Drip, No Sore Throat, No Other Pulmonary: Dyspnea; No Cough, No Pleuritic Chest Pain, No Other Cardiovascular: No: Chest Pain, Palpitations, Orthopnea, Paroxysmal Noc. Dyspnea, Edema, Lt Headedness, Other Objective-Cardiology Exam Last Set of Vital Signs Vital Signs 03/03/20 03/05/20 03/05/20 20:15 07:37 09:07 Temp 36.5 Pulse 94 Resp 18 B/P (MAP) 151/82 (105) Pulse Ox 96 O2 Delivery High Flow N/C O2 Flow Rate 5.00 FiO2 40 Capillary Refill : Less Than 3 SecondsLess Than 3 Seconds I&O Intake and Output 03/05/20 00:00 Intake Total 1265 ml Output Total 1550 ml Balance -285 ml Intake Oral 1265 ml Output Urine Total 1550 ml # Bowel Movements 4 General: Alert, Cooperative, No Acute Distress HEENT: Atraumatic, PERRLA Neck: Supple, No JVD Lungs: Clear to Auscultation, Normal Air Movement Heart: Regular Rate, Normal S1, Normal S2, No Murmurs Abdomen: Normal Bowel Sounds, Soft Extremities: No Clubbing, No Cyanosis, Other (peripheral edema) Skin: No Rashes Neuro: Normal Speech Psych/Mental Status: Mental Status NL, Mood NL Results Lab Laboratory Tests 03/05/20 04:15 A/P-Cardiology Admission Diagnosis Acute respiratory failure Non-ST elevation myocardial infarction Congestive heart failure Acute renal failure Assessment/Plan Status post acute respiratory failure secondary to influenza B infection, doing better at this time, appear to be back to her baseline. Managed by primary care team Congestive heart failure, acute left ventricular systolic dysfunction, nonischemic cardiomyopathy, probably stunned myocardium due to hypoxemia. Responding well to diuretics, continue to monitor Hypokalemia, hypomagnesemia, I gave her additional doses of potassium and magnesium and will repeat in the morning Coronary artery disease, history of myocardial infarction in 2009 transferred to [facility] and had a stent to the circumflex artery. Repeat cardiac catheterization was carried out on February 18, 2020 showing patent stent in the circumflex artery otherwise mild coronary artery disease, non obstructive disease with severe cardiomyopathy and ejection fraction 25 percent and elevated left ventricular end-diastolic pressure, continue on diuretics for now Chronic pedal edema, give her additional dose of Lasix today. Continue to monitor Acute on chronic renal insufficiency, improved, continue to monitor Tobaccoism, educated on smoking cessation Obesity, BMI 44. Clinical Quality Measures DVT/VTE Risk/Contraindication: Risk Factor Score Per Nursin RFS Level Per Nursing on Admit: 4+=Very High JOYCE ANDREA MD Mar 05, 2020 10:33
--- NOTE | 2020-03-05 10:43 | Progress Note - Hospitalist ---
Subjective HPI/CC On Admission Date Seen by Provider: Mar 05, 2020 Time Seen by Provider: 09:10 Subjective/Events-last exam Patient complains of her legs hurting and is very tearful about not getting stronger. He does accept some responsibility for the fact that she is not been always strong enough to do it has been asked of her. She is adamant that she would like to get up in a chair. Her breathing seems to be a lot better. She is awake and alert otherwise Review of Systems Musculoskeletal: leg pain Neurological: Weakness Objective Exam Vital Signs Vital Signs Date Time Temp Pulse Resp B/P (MAP) Pulse Ox O2 Delivery O2 Flow Rate FiO2 03/05/20 11:33 36.6 80 20 151/87 (108) 96 High Flow N/C 5.00 03/03/20 20:15 40 Capillary Refill : Less Than 3 SecondsLess Than 3 Seconds General Appearance: Obese Neck: Non Tender, Limited Range of Motion Respiratory: Lungs Clear, No Accessory Muscle Use, No Respiratory Distress, Decreased Breath Sounds Cardiovascular: Regular Rate, Rhythm, Other (Distant) Gastrointestinal: Normal Bowel Sounds, Non Tender, Soft Rectal: Deferred Back: Normal Inspection Extremity: Pedal Edema Neurologic/Psychiatric: Alert, Oriented x3, No Motor/Sensory Deficits, Other (Tearful) Results/Procedures Lab Laboratory Tests 03/05/20 04:15 Patient resulted labs reviewed. Assessment/Plan Assessment and Plan Assess & Plan/Chief Complaint History of influenza and respiratory failure acute superimposed on chronic-with Pseudomonas pneumonia-has completed 14 days of Zosyn Diffuse weakness and disability based on long illness Obesity COPD-with hypercapnic respiratory failure-chronic, combined with tobaccoism Hypokalemia Osteoarthritis History of hypertension Plan to DC Peoples catheter, PT and consider placement Critical Care Ventilator Management (pt sedated and on ventilator) Diagnosis/Problems Diagnosis/Problems (1) Influenza B Status: Acute (2) Swelling of lower extremity Status: Acute (3) DVT prophylaxis Status: Acute (4) Acute and chronic respiratory failure with hypoxia Status: Acute Assessment & Plan: Patient had increased somnolence yesterday and ABG reflected hypercapnic respiratory failure. She was placed on BiPAP with improvement. (5) Debility Status: Acute Clinical Quality Measures DVT/VTE Risk/Contraindication: Risk Factor Score Per Nursin RFS Level Per Nursing on Admit: 4+=Very High JOSÉ MIGUEL REECE MD Mar 05, 2020 10:43
[2020-03-05] MEDS ORDERED: NS IV 500 ML 500 ML ONE (11:15)
[2020-03-05] MEDS: POTASSIUM CL 10MEQ/50ML IVPB 50 ML IV SCH ×4 (11:27→15:16)
--- NOTE | 2020-03-05 12:00 | NUR ---
AGUILERA REMOVED, [place]O WELL, PUREWICK APPLIED, BED IN CHAIR POSITION, [place] WELL, O2 ON PER NC AT 5 LITERS HIGH FLOW TUBING, O2 SAT 96 PERCENT, PATIENT PUT ON AIR BED, WILLIAM AREA EXCORIATED, OPEN AREA ON BUTTOCKS. HEELS ELEVATED OFF BED, ALLEVYN DRESSING INTACT TO BOTH HEELS FOR PROTECTION
[2020-03-06] MEDS: RT-ALBUTEROL/IPRATROPIUM 3 ML (DUONEB) VIAL INH SCH ×6 (02:12→21:08)
[2020-03-06 04:11] VITALS: BP 133/83
[2020-03-06 05:58] LABS: BASOPHILS % (AUTO) 1 % (0-10); EOSINOPHILS # (AUTO) 0.3 10^3/uL (0.0-0.3); EOSINOPHILS % (AUTO) 4 % (0-10); HEMATOCRIT 37 % (35-52); HEMOGLOBIN 10.6 g/dL (11.5-16.0); LYMPHOCYTES # (AUTO) 1.3 10^3/uL (1.0-4.0); LYMPHOCYTES % (AUTO) 21 % (12-44); MEAN CORPUSCULAR HEMOGLOBIN 25 pg (25-34); MEAN CORPUSCULAR HGB CONC 28 g/dL (32-36); MEAN CORPUSCULAR VOLUME 87 fL (80-99); MEAN PLATELET VOLUME 9.7 fL (9.0-12.2); MONOCYTES # (AUTO) 0.6 10^3/uL (0.0-1.0); MONOCYTES % (AUTO) 10 % (0-12); NEUTROPHILS # (AUTO) 3.8 10^3/uL (1.8-7.8); NEUTROPHILS % (AUTO) 64 % (42-75); PLATELET COUNT 391 10^3/uL (130-400)
[2020-03-06] MEDS: inSUlin ASPART (NovoLOG) 1 UNIT/0.01 ML (CHARGE PER UNIT) SC SCH ×4 (06:00→20:33)
[2020-03-06 06:08] LABS: CHLORIDE 96 MMOL/L (98-107); POTASSIUM 3.2 MMOL/L (3.6-5.0); SODIUM 142 MMOL/L (135-145)
[2020-03-06 06:09] LABS: CALCIUM 8.8 MG/DL (8.5-10.1)
[2020-03-06 06:10] LABS: GLUCOSE 93 MG/DL (70-105)
[2020-03-06 06:11] LABS: CARBON DIOXIDE 32 MMOL/L (21-32)
[2020-03-06 06:13] LABS: PHOSPHORUS 2.8 MG/DL (2.3-4.7)
[2020-03-06 06:14] LABS: BUN/CREATININE RATIO 13; CREATININE SERUM 0.68 MG/DL (0.60-1.30); GFR ESTIMATED > 60
[2020-03-06 06:16] LABS: MAGNESIUM 1.8 MG/DL (1.6-2.4)
[2020-03-06 08:00] VITALS: BP 124/76
[2020-03-06] MEDS: ASPIRIN 81 MG CHEW (CHILDREN'S ASA) PO SCH (09:17)
[2020-03-06] MEDS: PANTOPRAZOLE 40 MG (PROTONIX) TAB PO SCH (09:17)
[2020-03-06] MEDS: FUROSEMIDE 20 MG (LASIX) TAB PO SCH (09:17)
[2020-03-06] MEDS: LOSARTAN 25 MG (COZAAR) TAB PO SCH (09:17)
[2020-03-06] MEDS: NYSTATIN CREAM (MYCOSTATIN) 30 GM TUBE TP SCH ×3 (09:18→20:33)
[2020-03-06] MEDS: ENOXAPARIN 40 MG/0.4 ML (LOVENOX) SYR SC SCH ×2 (09:18→20:28)
[2020-03-06] MEDS: meTOprolol TARTRATE 25 MG (LOPRESSOR) TABLET PO SCH ×2 (09:18→20:31)
[2020-03-06] MEDS: ACETAMINOPHEN 325 MG TABLET PO PRN ×2 (09:28→20:57)
--- NOTE | 2020-03-06 09:33 | Cardiology Progress Note ---
Subjective Date Seen by Provider: Mar 06, 2020 Time Seen by Provider: 09:05 Subjective/Events-last exam Patient is sitting up in bed, denies any chest pain or increased dyspnea. Asking to go home. Complaining of leg pain Review of Systems General: No Chills, No Night Sweats; Fatigue, Malaise; No Appetite, No Other HEENT: No Head Aches, No Visual Changes, No Eye Pain, No Ear Pain, No Dysphasia, No Sinus Congestion, No Post Nasal Drip, No Sore Throat, No Other Pulmonary: Dyspnea; No Cough, No Pleuritic Chest Pain, No Other Cardiovascular: Edema; No: Chest Pain, Palpitations, Orthopnea, Paroxysmal Noc. Dyspnea, Lt Headedness, Other Objective-Cardiology Exam Last Set of Vital Signs Vital Signs 03/03/20 03/06/20 03/06/20 20:15 08:00 09:00 Temp 36.8 Pulse 93 Resp 18 B/P (MAP) 124/76 (92) Pulse Ox 94 O2 Delivery High Flow N/C O2 Flow Rate 4.00 FiO2 40 Capillary Refill : Less Than 3 SecondsLess Than 3 Seconds I&O Intake and Output 03/06/20 00:00 Intake Total 1660 ml Output Total 1725 ml Balance -65 ml Intake Oral 1160 ml IV Total 500 ml Output Urine Total 1325 ml Post Void Residual 400 ml # Voids 1 # Bowel Movements 1 General: Alert, Cooperative, No Acute Distress HEENT: Atraumatic, PERRLA Neck: Supple, No JVD Lungs: Clear to Auscultation, Normal Air Movement Heart: Regular Rate, Normal S1, Normal S2, No Murmurs Abdomen: Normal Bowel Sounds, Soft Extremities: No Clubbing, No Cyanosis, Other (peripheral edema) Skin: No Rashes Neuro: Normal Speech Psych/Mental Status: Mental Status NL, Mood NL Results Lab Laboratory Tests 03/06/20 05:26 A/P-Cardiology Admission Diagnosis Acute respiratory failure Non-ST elevation myocardial infarction Congestive heart failure Acute renal failure Assessment/Plan Status post acute respiratory failure secondary to influenza B infection, doing better at this time, appear to be back to her baseline. Managed by primary care team Congestive heart failure, acute left ventricular systolic dysfunction, nonischemic cardiomyopathy, probably stunned myocardium due to hypoxemia. Responding well to diuretics, evaluate 2-D echo Hypokalemia, I will give additional doses of potassium today and maintained on daily potassium while on diuretics Coronary artery disease, history of myocardial infarction in 2009 transferred to [facility] and had a stent to the circumflex artery. Repeat cardiac catheterization was carried out on February 18, 2020 showing patent stent in the circumflex artery otherwise mild coronary artery disease, non obstructive disease with severe cardiomyopathy and ejection fraction 25 percent and elevated left ventricular end-diastolic pressure, continue on diuretics for now Chronic pedal edema, maintained on Lasix. Continue to monitor Acute on chronic renal insufficiency, improved, continue to monitor Tobaccoism, educated on smoking cessation Obesity, BMI 44. Patient was seen and evaluated with Iveth, examination performed, management plan was discussed, agree with the current scribed note, I made few changes to the note using Italic font Patient was seen at bedside, complaining of pain in her legs, mild dyspnea and generalized fatigue Trying to work with physical therapy and asking to go home Breathing is better, edema is better but still having mild to moderate peripheral edema, maintained on diuretics Hypokalemia, we will initiate daily dose of potassium in addition to additional dose for replacement today Continue to monitor renal function. I will repeat 2-D echo Clinical Quality Measures DVT/VTE Risk/Contraindication: Risk Factor Score Per Nursin RFS Level Per Nursing on Admit: 4+=Very High IVETH SMITH Mar 06, 2020 9:33 am JOYCE ANDREA MD Mar 06, 2020 10:12 am
[2020-03-06] MEDS: KCL 20 MEQ TAB (K-DUR) PO SCH ×2 (10:58→20:32)
[2020-03-06 11:07] LABS: ABG BASE EXCESS 12.2 MMOL/L (-2.5-2.5); ABG OXYGEN SATURATION 96 % (94-100); ABG PCO2 64 MMHG (35-45); ABG PH 7.39 (7.37-7.43); ABG PO2 81 MMHG (79-93); ABG TCO2 39.8 MMOL/L (21.0-31.0)
[2020-03-06 11:09] LABS: ALLENS TEST POSITIVE; PATIENT TEMP 36.4; VENTILATOR NO
--- NOTE | 2020-03-06 11:13 | Progress Note - Hospitalist ---
AGUILADIANA MED STUDENT 03/06/20 1113: Subjective HPI/CC On Admission Date Seen by Provider: Mar 06, 2020 Time Seen by Provider: 08:15 Subjective/Events-last exam Patient continues to act confused. She is wanting to go home and be able to take a hot shower. She reports no pain. She stated to me that no one had been in to help her get up and moving around except for one time, though therapy has been noted to come in regularly and work with her on mobility. Been using BiPap at night and 4L O2 via NC during the day. Reports no issues with this. Objective Exam Vital Signs Vital Signs Date Time Temp Pulse Resp B/P (MAP) Pulse Ox O2 Delivery O2 Flow Rate FiO2 03/06/20 09:00 High Flow N/C 4.00 03/06/20 08:00 36.8 93 18 124/76 (92) 94 03/03/20 20:15 40 Capillary Refill : Less Than 3 SecondsLess Than 3 Seconds General Appearance: No Apparent Distress, WD/WN HEENT: Normal ENT Inspection; No Scleral Icterus (L), No Scleral Icterus (R) Neck: Non Tender, Supple, Limited Range of Motion Respiratory: Chest Non Tender, No Accessory Muscle Use, Wheezing Cardiovascular: Regular Rate, Rhythm, No Murmur, Normal Peripheral Pulses Extremity: Normal Inspection, Normal Range of Motion, Pedal Edema Neurologic/Psychiatric: Alert, Oriented x3, No Motor/Sensory Deficits Skin: Normal Color, Warm/Dry Results/Procedures Lab Laboratory Tests 03/06/20 05:26 Patient resulted labs reviewed. Assessment/Plan Assessment and Plan Assess & Plan/Chief Complaint History of influenza B and Respiratory failure, acute on chronic with Pseudomonas pneumonia, completed 14 days of Zosyn COPD with hypercapnic respiratory failure, with tobacco dependence Diffuse weakness and disability due to long illness Congestive heart failure, EF 25% Obesity Acute on chronic renal insufficiency Hypokalemia Osteoarthritis history of hypertension Plan Continue with PT for weakness and mobility concerns Recheck ABG Continue BiPap at night Cardiology consulted for CHF concerns, continue to monitor Continue to monitor renal insufficiency with labs, Lasix for pedal edema Discuss smoking cessation at discharge Clinical Quality Measures DVT/VTE Risk/Contraindication: Risk Factor Score Per Nursin RFS Level Per Nursing on Admit: 4+=Very High JANICE THOMPSON DO 03/07/20 0439: Subjective Subjective/Events-last exam All Pt is talking about is going home Pt still confused BiPAP used at night and nasal cannula oxygen used during the daytime ABG showed respiratory acidosis but that was yesterday and we will recheck today Dr. Hummel will assess the Pt Placement issue Review of Systems General: Fatigue Pulmonary: Dyspnea Neurological: Confusion Objective Exam General Appearance: No Apparent Distress, WD/WN, Chronically ill, Obese Respiratory: Lungs Clear Cardiovascular: Regular Rate, Rhythm Neurologic/Psychiatric: Alert, Oriented x3, Disoriented Assessment/Plan Assessment and Plan Assess & Plan/Chief Complaint Check ABG for CO2 retention Appreciate Dr Humeml checking in on her Long recovery Supervisory-Addendum Brief Verification & Attestation Participated in pt care: history, MDM, physical Personally performed: exam, history, MDM, supervision of care Care discussed with: Medical Student Procedures: n/a Results interpretation: Verified all documentation Verification and Attestation of Medical Student E/M Service A medical student performed and documented this service in my presence. I reviewed and verified all information documented by the medical student and made modifications to such information, when appropriate. I personally performed the physical exam and medical decision making. Janice Thompson, Mar 07, 2020,04:39 DIANA SHEEHAN MED STUDENT Mar 06, 2020 11:13 JANICE THOMPSON DO Mar 07, 2020 04:39
[2020-03-06 12:11] VITALS: BP 132/80
--- NOTE | 2020-03-06 13:25 | Pulmonary Progress Note ---
Subjective Time Seen by a Provider: 13:19 Subjective/Events-last exam PT is currently requiring 4 liter NC. Sepsis Event Evaluation Height, Weight, BMI Height: 5'7.00" Weight: 220lbs. 0.0oz. 99.953581cx; 44.95 BMI Method:Stated Exam Exam Vital Signs Date Time Temp Pulse Resp B/P (MAP) Pulse Ox O2 Delivery O2 Flow Rate FiO2 03/06/20 12:19 89 03/06/20 12:11 36.8 83 20 132/80 (97) 92 High Flow N/C 4.00 03/06/20 11:02 95 Nasal Cannula 4.00 03/06/20 09:00 High Flow N/C 4.00 03/06/20 08:00 36.8 93 18 124/76 (92) 94 High Flow N/C 4.00 03/06/20 06:40 85 03/06/20 04:11 36.4 79 21 133/83 (100) 93 NIV Bilevel 40.00 03/06/20 02:12 83 24 92 30.00 03/06/20 01:00 77 03/05/20 23:51 36.2 86 21 129/80 (96) 98 NIV Bilevel 40.00 03/05/20 22:55 83 22 95 40.00 03/05/20 20:30 High Flow N/C 5.00 03/05/20 20:00 36.9 87 18 129/86 (100) 95 High Flow N/C 4.00 03/05/20 19:31 97 High Flow N/C 5.00 03/05/20 19:00 89 03/05/20 16:00 36.1 83 16 140/84 (102) 97 High Flow N/C 5.00 03/05/20 14:39 97 High Flow N/C 5.00 I & O 03/06/20 07:00 Intake Total 1860 ml Output Total 1650 ml Balance 210 ml Height & Weight Height: 5'7.00" Weight: 220lbs. 0.0oz. 99.648209yh; 44.95 BMI Method:Stated General Appearance: No Apparent Distress, WD/WN HEENT: Normal ENT Inspection; No Scleral Icterus (L), No Scleral Icterus (R) Neck: Non Tender, Supple, Limited Range of Motion Respiratory: Chest Non Tender, No Accessory Muscle Use, Wheezing Cardiovascular: Regular Rate, Rhythm, No Murmur, Normal Peripheral Pulses Capillary Refill: Less Than 3 Seconds Peripheral Pulses: 2+ Dorsalis Pedis (R), 2+ Left Dors-Pedis (L), 2+ Radial Pulses (R), 2+ Radial Pulses (L) Gastrointestinal: non tender, soft, no pulsatile mass; No distended Extremity: Normal Inspection, Normal Range of Motion, Pedal Edema Neurologic/Psychiatric: Alert, Oriented x3, No Motor/Sensory Deficits Skin: Normal Color, Warm/Dry Results Lab Laboratory Tests 03/05/20 04:15 03/06/20 05:26 Assessment/Plan Assessment/Plan Acute respiratory failure Influenza B positive - BiPaP HS -s/p Tamiflu -CXR reviewed - COVID is negative -Bilater dopplers - normal s/p Pneumonia with probable pseudomonus and strep Cellulitis -improved -s/p Vanco, Zosyn -- Now off Abx Hypokalemia -replace ARF - improved -D/C PhosLo -Monitor Hx of venous insuff CAD hx Chronic tobacco use STU CABAN DO Mar 06, 2020 13:25
--- NOTE | 2020-03-06 15:25 | Physical Therapy Daily Note ---
PT Daily Note-Current Subjective Patient in bed pre tx, agrees to PT, no complaints of pain, patient is eager to do PT. Patient has a purewick in and female PT tech takes it out. Appearance Patient in bed post tx with nurse call, phone, tray, all needs met, nurse notified to put purewick back in. Mental Status Patient Orientation: Person, Place Attachments: Oxygen Transfers SCALE: Activities may be completed with or without assistive devices. 8-Cqhftwhmhz-dnrikav completes the activity by him/herself with no assistance from a helper. 5-Set-up or Clean-up Assistance-helper sets up or cleans up; patient completes activity. [place] assists only prior to or following the activity. 4-Supervision or Touching Assistance-helper provides verbal cues and/or touching/steadying and/or contact guard assistance as patient completes activity. Assistance may be provided throughout the activity or intermittently. 3-Partial/Moderate Assistance-helper does LESS THAN HALF the effort. [place] lifts, holds or supports trunk or limbs, but provides less than half the effort. 2-Substantial/Maximal Assistance-helper does MORE THAN HALF the effort. [place] lifts or holds trunk or limbs and provides more than half the effort. 8-Pmwxszkbr-symgjm does ALL the effort. Patient does none of the effort to complete the activity. Or, the assistance of 2 or more helpers is required for the patient to complete the activity. If activity was not attempted, code reason: 7-Patient Refused. 9-Not Applicable-not attempted and the patient did not perform the activity before the current illness, exacerbation or injury. 10-Not Attempted due to Environmental Limitations-(lack of equipment, weather restraints, etc.). 88-Not Attempted due to Medical Conditions or Safety Concerns. Roll Left & Right (QC): 3 Sit to Lying (QC): 2 Lying to Sitting/Side of Bed(Q: 3 Sit to Stand (QC): 3 Min assist for rolling, supine to sit min assist, sit to supine max assist, sit to stand min assist. After laying back down patient had to roll from side to side to replace pads under her and she helped with scooting up in bed. Patient stood x3 and on the second time she took a few sidesteps toward the head of the bed. Treatments transfers, standing, ambulation Assessment Current Status: Fair Progress slowly improving functional mobility, patient motivated to get stronger PT Short Term Goals Short Term Goals Time Frame: Mar 17, 2020 Roll Left & Right: 2 Sit to lyin Lying to sitting on side of be: 2 Sit to stand: 2 Chair/jfa-zm-gqxzf transfer: 2 PT Chcf Goals Chcf Goals PT Canal Boat Operator Goals Time Frame: Apr 01, 2020 Roll Left & Right (QC): 4 Sit to Lying (QC): 4 Lying-Sitting on Side/Bed(QC): 4 Sit to Stand (QC): 4 Chair/Oea-rd-Gacii Xfer(QC): 4 Toilet Transfer (QC): 4 Car Transfer (QC): 4 Does the Patient Walk: Yes Walk 10 feet (QC): 4 Walk 50ft with 2 Turns (QC): 4 PT Plan Problem List Problem List: Activity Tolerance, Functional Strength, Safety, Balance, Gait, Transfer, Bed Mobility, ROM Treatment/Plan Treatment Plan: Continue Plan of Care Treatment Plan: Bed Mobility, Education, Functional Activity Cristela, Functional Strength, Gait, Safety, Therapeutic Exercise, Transfers Treatment Duration: Apr 01, 2020 Frequency: 6 times per week Estimated Hrs Per Day: .5 hour per day Patient and/or Family Agrees t: Yes Safety Risks/Education Patient Education: Transfer Techniques, Correct Positioning, Safety Issues Teaching Recipient: Patient Teaching Methods: Demonstration, Discussion Response to Teaching: Reinforcement Needed Time/GCodes Time In: 1500 Time Out: 1513 Total Billed Treatment Time: 13 Total Billed Treatment 1 visit FA 13MARI PRITCHARD PT Mar 06, 2020 15:24
[2020-03-06 16:00] VITALS: BP 137/83
[2020-03-06 19:57] VITALS: BP 126/77
--- NOTE | 2020-03-06 21:00 | NUR ---
CRYING ABOUT LEG PAIN. STATES WORSE AFTER THERAPY TODAY. MEDICATED WITH TYLENOL. READY FOR SLEEP AND BIPAP APPLIED BY RSkylerT.
--- NOTE | 2020-03-07 00:30 | NUR ---
HAS BEEN RESTLESS. REPEATEDLY WANTING LEGS MASSAGED TO HELP DISCOMFORT. SCD'S ON AND PATIENT LIKES THEM.
[2020-03-07 00:55] VITALS: BP 145/82
[2020-03-07] MEDS: RT-ALBUTEROL/IPRATROPIUM 3 ML (DUONEB) VIAL INH SCH ×6 (01:25→22:50)
--- NOTE | 2020-03-07 03:20 | NUR ---
This RN took over patient care at this time. Received report and agree with previous RNs assessment. Patient resting with eyes closed.
[2020-03-07 04:14] VITALS: BP 124/71
[2020-03-07 04:54] LABS: BASOPHILS % (AUTO) 1 % (0-10); EOSINOPHILS # (AUTO) 0.2 10^3/uL (0.0-0.3); EOSINOPHILS % (AUTO) 3 % (0-10); HEMATOCRIT 36 % (35-52); HEMOGLOBIN 10.6 g/dL (11.5-16.0); LYMPHOCYTES # (AUTO) 1.5 10^3/uL (1.0-4.0); LYMPHOCYTES % (AUTO) 24 % (12-44); MEAN CORPUSCULAR HEMOGLOBIN 25 pg (25-34); MEAN CORPUSCULAR HGB CONC 29 g/dL (32-36); MEAN CORPUSCULAR VOLUME 86 fL (80-99); MONOCYTES # (AUTO) 0.6 10^3/uL (0.0-1.0); MONOCYTES % (AUTO) 10 % (0-12); NEUTROPHILS # (AUTO) 3.8 10^3/uL (1.8-7.8); NEUTROPHILS % (AUTO) 62 % (42-75); PLATELET COUNT 356 10^3/uL (130-400); WHITE BLOOD COUNT 6.2 10^3/uL (4.3-11.0)
[2020-03-07 05:05] LABS: CHLORIDE 97 MMOL/L (98-107); POTASSIUM 3.2 MMOL/L (3.6-5.0); SODIUM 143 MMOL/L (135-145)
[2020-03-07 05:06] LABS: CALCIUM 8.3 MG/DL (8.5-10.1)
[2020-03-07 05:07] LABS: GLUCOSE 95 MG/DL (70-105)
[2020-03-07 05:08] LABS: CARBON DIOXIDE 33 MMOL/L (21-32)
[2020-03-07 05:10] LABS: PHOSPHORUS 1.8 MG/DL (2.3-4.7)
[2020-03-07 05:11] LABS: CREATININE SERUM 0.66 MG/DL (0.60-1.30); GFR ESTIMATED > 60
[2020-03-07 05:12] LABS: BUN/CREATININE RATIO 15
[2020-03-07 05:13] LABS: MAGNESIUM 1.6 MG/DL (1.6-2.4)
--- NOTE | 2020-03-07 05:46 | Pulmonary Progress Note ---
Subjective Time Seen by a Provider: 05:43 Subjective/Events-last exam No complications noted. Sepsis Event Evaluation Height, Weight, BMI Height: 5'7.00" Weight: 220lbs. 0.0oz. 99.270996cp; 44.95 BMI Method:Stated Exam Exam Vital Signs Date Time Temp Pulse Resp B/P (MAP) Pulse Ox O2 Delivery O2 Flow Rate FiO2 03/07/20 04:14 36.2 89 22 124/71 (88) 97 NIV Bilevel 30.00 03/07/20 01:25 88 17 93 30.00 03/07/20 01:00 84 03/07/20 00:55 37.0 88 20 145/82 (103) 96 High Flow N/C 30.00 03/06/20 21:09 94 17 94 30.00 03/06/20 20:37 High Flow N/C 3.00 03/06/20 19:57 36.9 73 18 126/77 (93) 97 High Flow N/C 3.00 03/06/20 19:00 93 03/06/20 16:00 36.6 102 18 137/83 (101) 97 High Flow N/C 3.00 03/06/20 14:42 89 Nasal Cannula 2.00 03/06/20 12:19 89 03/06/20 12:11 36.8 83 20 132/80 (97) 92 High Flow N/C 4.00 03/06/20 11:02 95 Nasal Cannula 4.00 03/06/20 09:00 High Flow N/C 4.00 03/06/20 08:00 36.8 93 18 124/76 (92) 94 High Flow N/C 4.00 03/06/20 06:40 85 I & O 03/07/20 07:00 Intake Total 1280 ml Output Total 550 ml Balance 730 ml Height & Weight Height: 5'7.00" Weight: 220lbs. 0.0oz. 99.257016wi; 44.95 BMI Method:Stated General Appearance: No Apparent Distress, WD/WN, Chronically ill, Obese HEENT: Normal ENT Inspection; No Scleral Icterus (L), No Scleral Icterus (R) Neck: Non Tender, Supple, Limited Range of Motion Respiratory: Lungs Clear Cardiovascular: Regular Rate, Rhythm Capillary Refill: Less Than 3 Seconds Peripheral Pulses: 2+ Dorsalis Pedis (R), 2+ Left Dors-Pedis (L), 2+ Radial Pulses (R), 2+ Radial Pulses (L) Gastrointestinal: non tender, soft, no pulsatile mass; No distended Extremity: Normal Inspection, Normal Range of Motion, Pedal Edema Neurologic/Psychiatric: Alert, Oriented x3, Disoriented Skin: Normal Color, Warm/Dry Results Lab Laboratory Tests 03/06/20 05:26 03/07/20 04:25 Assessment/Plan Assessment/Plan Acute respiratory failure Influenza B positive - BiPaP HS -s/p Tamiflu -CXR reviewed - COVID is negative -Bilater dopplers - normal s/p Pneumonia with probable pseudomonus and strep Cellulitis -improved -s/p Vanco, Zosyn -- Now off Abx Hypokalemia -replace ARF - improved -D/C PhosLo -Monitor Hx of venous insuff CAD hx Chronic tobacco use STU CABAN DO Mar 07, 2020 05:46
[2020-03-07] MEDS: ACETAMINOPHEN 325 MG TABLET PO PRN ×2 (06:00→17:58)
[2020-03-07] MEDS: inSUlin ASPART (NovoLOG) 1 UNIT/0.01 ML (CHARGE PER UNIT) SC SCH ×4 (06:29→21:43)
[2020-03-07 07:48] VITALS: BP_SYST 124; BP_SYST 165; BP_DIAS 102; BP_DIAS 71
[2020-03-07] MEDS ORDERED: POTASSIUM PHOSPHATE INJ 30 MM in NS (IVPB) 250 ML IV ONE (08:00)
[2020-03-07] MEDS: meTOprolol TARTRATE 25 MG (LOPRESSOR) TABLET PO SCH ×2 (08:48→21:12)
[2020-03-07] MEDS: FUROSEMIDE 20 MG (LASIX) TAB PO SCH (08:48)
[2020-03-07] MEDS: PANTOPRAZOLE 40 MG (PROTONIX) TAB PO SCH (08:48)
[2020-03-07] MEDS: ASPIRIN 81 MG CHEW (CHILDREN'S ASA) PO SCH (08:48)
[2020-03-07] MEDS: LOSARTAN 25 MG (COZAAR) TAB PO SCH (08:48)
[2020-03-07] MEDS: KCL 20 MEQ TAB (K-DUR) PO SCH ×2 (08:48→21:12)
[2020-03-07] MEDS: ENOXAPARIN 40 MG/0.4 ML (LOVENOX) SYR SC SCH ×2 (08:49→21:13)
[2020-03-07] MEDS: NYSTATIN CREAM (MYCOSTATIN) 30 GM TUBE TP SCH ×3 (08:49→22:29)
[2020-03-07 11:06] VITALS: BP 161/93
--- NOTE | 2020-03-07 11:14 | Progress Note - Hospitalist ---
EVONNEFROYLANMICHAELDIANA MED STUDENT 03/07/20 1114: Subjective HPI/CC On Admission Date Seen by Provider: Mar 07, 2020 Time Seen by Provider: 08:20 Subjective/Events-last exam Patient is less confused today. She still would like to go home, but is less adamant about it today, noting she has work to do before she goes home. She was happy to get up and around yesterday but had some leg pain after PT worked with her. This was improved with some Tylenol. She does have restless legs, and feels she has to move them. Heel guards over her heels due to skin breakdown. Respiratory acidosis is improving, as seen by ABG drawn yesterday. On 2.5L O2 via nasal cannula on exam. Still using BiPap at night. Objective Exam Vital Signs Vital Signs Date Time Temp Pulse Resp B/P (MAP) Pulse Ox O2 Delivery O2 Flow Rate FiO2 03/07/20 11:06 37.2 80 20 161/93 (115) 100 High Flow N/C 3.00 03/03/20 20:15 40 Capillary Refill : Less Than 3 SecondsLess Than 3 Seconds General Appearance: No Apparent Distress, Obese Neck: Non Tender, Supple Respiratory: Chest Non Tender, Lungs Clear, Normal Breath Sounds, No Accessory Muscle Use Cardiovascular: Regular Rate, Rhythm, No Murmur, Normal Peripheral Pulses Gastrointestinal: No Pulsatile Mass, Non Tender, Soft Extremity: No Calf Tenderness, Pedal Edema Neurologic/Psychiatric: Alert, Normal Mood/Affect Skin: Normal Color Results/Procedures Lab Laboratory Tests 03/07/20 04:25 Patient resulted labs reviewed. Assessment/Plan Assessment and Plan Assess & Plan/Chief Complaint History of influenza B and Respiratory failure, acute on chronic with Pseudomonas pneumonia, completed 14 days of Zosyn COPD with hypercapnic respiratory failure, with tobacco dependence Diffuse weakness and disability due to long illness Congestive heart failure, EF 25% Obesity Acute on chronic renal insufficiency Hypokalemia Osteoarthritis history of hypertension Plan Patient is a good candidate for IRF Continue with PT for weakness and mobility concerns Continue BiPap at night Cardiology consulted for CHF concerns, continue to monitor Continue to monitor renal insufficiency with labs, Lasix for pedal edema Discuss smoking cessation at discharge Clinical Quality Measures DVT/VTE Risk/Contraindication: Risk Factor Score Per Nursin RFS Level Per Nursing on Admit: 4+=Very High JANICE THOMPSON DO 03/08/20 0555: Subjective Subjective/Events-last exam Restless legs noted so will start Mirapex of 0.125 Mg noon and at bedtime Potassium added for low levels Inpatient rehab evaluation PT and OT Review of Systems General: Fatigue Pulmonary: Dyspnea Musculoskeletal: leg pain Neurological: Confusion Objective Exam General Appearance: No Apparent Distress, WD/WN, Chronically ill Respiratory: Chest Non Tender, Lungs Clear, Normal Breath Sounds, No Accessory Muscle Use, No Respiratory Distress Cardiovascular: Regular Rate, Rhythm, No Edema, No Gallop, No JVD, No Murmur, Normal Peripheral Pulses Neurologic/Psychiatric: Alert, Oriented x3, No Motor/Sensory Deficits, Normal Mood/Affect, Disoriented Assessment/Plan Assessment and Plan Assess & Plan/Chief Complaint Supportive care Improved confusion Rehab eval Supervisory-Addendum Brief Verification & Attestation Participated in pt care: history, MDM, physical Personally performed: exam, history, MDM, supervision of care Care discussed with: Medical Student Procedures: n/a Results interpretation: Verified all documentation Verification and Attestation of Medical Student E/M Service A medical student performed and documented this service in my presence. I reviewed and verified all information documented by the medical student and made modifications to such information, when appropriate. I personally performed the physical exam and medical decision making. Janice Thompson, Mar 08, 2020,05:54 DIANA SHEEHAN MED STUDENT Mar 07, 2020 11:14 JANICE THOMPSON DO Mar 08, 2020 05:55
--- NOTE | 2020-03-07 11:58 | Physical Therapy Daily Note ---
PT Daily Note-Current Subjective Patient reluctantly agrees to PT. Pain Numeric Pain Scale: 5-Moderate Pain Location: Right, Left Location Body Site: Thigh Pain Description: Ache Mental Status Patient Orientation: Normal For Age Attachments: Oxygen Transfers SCALE: Activities may be completed with or without assistive devices. 1-Bxnztylpwz-rpbrazh completes the activity by him/herself with no assistance from a helper. 5-Set-up or Clean-up Assistance-helper sets up or cleans up; patient completes activity. [place] assists only prior to or following the activity. 4-Supervision or Touching Assistance-helper provides verbal cues and/or touch ing/steadying and/or contact guard assistance as patient completes activity. Assistance may be provided throughout the activity or intermittently. 3-Partial/Moderate Assistance-helper does LESS THAN HALF the effort. [place] lifts, holds or supports trunk or limbs, but provides less than half the effort. 2-Substantial/Maximal Assistance-helper does MORE THAN HALF the effort. [place] lifts or holds trunk or limbs and provides more than half the effort. 6-Uhzunruhi-hpbvkw does ALL the effort. Patient does none of the effort to complete the activity. Or, the assistance of 2 or more helpers is required for the patient to complete the activity. If activity was not attempted, code reason: 7-Patient Refused. 9-Not Applicable-not attempted and the patient did not perform the activity before the current illness, exacerbation or injury. 10-Not Attempted due to Environmental Limitations-(lack of equipment, weather restraints, etc.). 88-Not Attempted due to Medical Conditions or Safety Concerns. Lying to Sitting/Side of Bed(Q: 2 Sit to Stand (QC): 2 Chair/Oqe-fx-Rvhbe Xfer(QC): 2 Gait Training Distance: 5' x 2 with sidestepping Gait Assistive Device: FWW Exercises Supine Ex: Ankle pumps, Quad Set, Heel Slides Supine Reps: 12 Seated Therapy Exercises: Long arc quads, Hip flexion Seated Reps: 15 Assessment Patient progressing slowly with treatment plan. Increase activity as tolerated by patient. PT Short Term Goals Short Term Goals Time Frame: Mar 17, 2020 Roll Left & Right: 2 Sit to lyin Lying to sitting on side of be: 2 Sit to stand: 2 Chair/hkz-ha-qfqah transfer: 2 PT Stitcher Utility Goals Residential Goals PT Stitcher Utility Goals Time Frame: Apr 01, 2020 Roll Left & Right (QC): 4 Sit to Lying (QC): 4 Lying-Sitting on Side/Bed(QC): 4 Sit to Stand (QC): 4 Chair/Wkx-oc-Hmezs Xfer(QC): 4 Toilet Transfer (QC): 4 Car Transfer (QC): 4 Does the Patient Walk: Yes Walk 10 feet (QC): 4 Walk 50ft with 2 Turns (QC): 4 PT Plan Treatment/Plan Treatment Plan: Continue Plan of Care Treatment Plan: Bed Mobility, Education, Functional Activity Cristela, Functional Strength, Gait, Safety, Therapeutic Exercise, Transfers Treatment Duration: Apr 01, 2020 Frequency: 6 times per week Estimated Hrs Per Day: .5 hour per day Patient and/or Family Agrees t: Yes Time/GCodes Time In: 1100 Time Out: 1124 Total Billed Treatment Time: 24 Total Billed Treatment 1 visit EX 13 min FA 11 min THOR DIAL PT Mar 07, 2020 11:58
[2020-03-07] MEDS ORDERED: PRAMIPEXOLE 0.125 MG (MIRAPEX) TABLET PO NR (13:15)
[2020-03-07 16:00] VITALS: BP 144/70
--- NOTE | 2020-03-07 19:25 | NUR ---
HEARD PT CALLING OUT FROM ROOM, UPON ENTERING ROOM FOUND PT LAYING ON FLOOR PARALLEL NEXT TO BED ON HER LEFT SIDE. HEAD WAS TOWARD THE WHITE BOARD, FEET TOWARD THE HOB. WHEN ASKED WHAT HAPPENED, PT EXPLAINED THAT SHE WAS SITTING ON SIDE OF BED, TRIED TO BED UP WITHOUT ASSISTANCE. PT WAS REMINDED TO USE CALL LIGHT AND TO ALWAYS HAVE ASSISTANCE WITH TRANSFERS. PT WAS WEARING YELLOW GOWN AND YELLOW SOCKS THAT WERE ON THE FLOOR NEXT TO HER. PT COULD NOT RECALL SOCKS HAVE FALLEN OFF OR IF SHE HAD TAKEN THEM OFF WHILE LAYING ON THE GROUND. PT ALERT AND ORIENTED POST FALL, VS STABLE, PT CONTINUES TO HAVE BOUTS OF CONFUSION INTERMITTENTLY. WILL CONTINUE TO MONITOR AND CHART AT NURSING STATION CLOSEST TO PT.
--- NOTE | 2020-03-07 19:30 | NUR ---
PT WAS ASSISTED BACK TO BED BY 2 ICU NURSES, MYSELF, ROBLES Woo, BANKING CONSULTANT DUARTE, AND TRAINEE ARMATURE INSPECTOR. IN ROOM AKASH LIFT REQUIRED TO GET PT BACK TO BED. ASSESSED PT FOR PAIN/ INJURY PRIOR TO AND AFTER MOVING HER BACK TO BED, PT STATED HER LEFT LEG HURT AND POINTED TO HER FEMUR REGION. WHEN ASKED A FEW MINUTES LATER SHE RATED BOTH OF HER LEGS AT A 6 AND STATED THAT THIS WAS NORMAL AND THAT SHE HAS CHRONIC LEG PAIN. DR. THOMPSON NOTIFIED OF FALL AND LEG PAIN. WILL CONTINUE TO MONITOR PT.
[2020-03-07 20:00] VITALS: BP 154/92
[2020-03-07] MEDS: PRAMIPEXOLE 0.125 MG (MIRAPEX) TABLET PO SCH (21:12)
[2020-03-08] VITALS: BP 141/66
[2020-03-08] MEDS: ACETAMINOPHEN 325 MG TABLET PO PRN ×3 (01:05→23:44)
[2020-03-08] MEDS: RT-ALBUTEROL/IPRATROPIUM 3 ML (DUONEB) VIAL INH SCH ×5 (02:54→21:11)
[2020-03-08 03:50] VITALS: BP 138/69
[2020-03-08 06:30] LABS: BASOPHILS # (AUTO) 0.1 10^3/uL (0.0-0.1); BASOPHILS % (AUTO) 1 % (0-10); EOSINOPHILS # (AUTO) 0.2 10^3/uL (0.0-0.3); EOSINOPHILS % (AUTO) 3 % (0-10); HEMATOCRIT 38 % (35-52); HEMOGLOBIN 10.7 g/dL (11.5-16.0); LYMPHOCYTES # (AUTO) 1.2 10^3/uL (1.0-4.0); LYMPHOCYTES % (AUTO) 22 % (12-44); MEAN CORPUSCULAR HEMOGLOBIN 25 pg (25-34); MEAN CORPUSCULAR HGB CONC 28 g/dL (32-36); MEAN CORPUSCULAR VOLUME 89 fL (80-99); MEAN PLATELET VOLUME 10.1 fL (9.0-12.2); MONOCYTES # (AUTO) 0.6 10^3/uL (0.0-1.0); MONOCYTES % (AUTO) 11 % (0-12); NEUTROPHILS # (AUTO) 3.3 10^3/uL (1.8-7.8); NEUTROPHILS % (AUTO) 61 % (42-75); PLATELET COUNT 228 10^3/uL (130-400); WHITE BLOOD COUNT 5.4 10^3/uL (4.3-11.0)
[2020-03-08 06:42] LABS: CHLORIDE 99 MMOL/L (98-107); POTASSIUM 3.5 MMOL/L (3.6-5.0); SODIUM 142 MMOL/L (135-145)
[2020-03-08 06:43] LABS: CALCIUM 8.3 MG/DL (8.5-10.1); GLUCOSE 89 MG/DL (70-105)
[2020-03-08 06:45] LABS: CARBON DIOXIDE 30 MMOL/L (21-32)
[2020-03-08 06:47] LABS: CREATININE SERUM 0.63 MG/DL (0.60-1.30); GFR ESTIMATED > 60; PHOSPHORUS 4.4 MG/DL (2.3-4.7)
[2020-03-08 06:48] LABS: BUN/CREATININE RATIO 10
[2020-03-08 06:49] LABS: MAGNESIUM 1.5 MG/DL (1.6-2.4)
[2020-03-08] MEDS: inSUlin ASPART (NovoLOG) 1 UNIT/0.01 ML (CHARGE PER UNIT) SC SCH ×4 (06:54→21:15)
[2020-03-08 07:53] VITALS: BP 151/82
[2020-03-08] MEDS: NYSTATIN CREAM (MYCOSTATIN) 30 GM TUBE TP SCH ×3 (09:00→21:15)
[2020-03-08] MEDS: LOSARTAN 25 MG (COZAAR) TAB PO SCH (09:57)
[2020-03-08] MEDS: FUROSEMIDE 20 MG (LASIX) TAB PO SCH (09:57)
[2020-03-08] MEDS: KCL 20 MEQ TAB (K-DUR) PO SCH ×2 (09:57→21:14)
[2020-03-08] MEDS: PANTOPRAZOLE 40 MG (PROTONIX) TAB PO SCH (09:57)
[2020-03-08] MEDS: ENOXAPARIN 40 MG/0.4 ML (LOVENOX) SYR SC SCH ×2 (09:57→21:14)
--- NOTE | 2020-03-08 10:14 | NUR ---
IRF Evaluation Determination: Accepted Chart review complete and findings discussed with Dr. Randall - patient accepted. Anticipate admission, 03/09/20. SW notified. Thank you for this referral.
--- NOTE | 2020-03-08 11:22 | Physical Therapy Daily Note ---
PT Daily Note-Current Subjective Patient in bed pre tx, agrees to PT, has no complaints of pain. Appearance Patient in recliner post tx with nurse call,phone, tray, legs elevated. Patient understands that she needs to call nurse if she needs to get back into bed, has keshawn sling under her if nursing needs to use it to get her back to bed, nurse notified that patient is in recliner. Mental Status Patient Orientation: Person, Place, Situation Attachments: Oxygen Transfers SCALE: Activities may be completed with or without assistive devices. 1-Lgtlucdext-rtxootg completes the activity by him/herself with no assistance from a helper. 5-Set-up or Clean-up Assistance-helper sets up or cleans up; patient completes activity. [place] assists only prior to or following the activity. 4-Supervision or Touching Assistance-helper provides verbal cues and/or touching/steadying and/or contact guard assistance as patient completes activity. Assistance may be provided throughout the activity or intermittently. 3-Partial/Moderate Assistance-helper does LESS THAN HALF the effort. [place] lifts, holds or supports trunk or limbs, but provides less than half the effort. 2-Substantial/Maximal Assistance-helper does MORE THAN HALF the effort. [place] lifts or holds trunk or limbs and provides more than half the effort. 1-Uaarqrzxy-dfcoap does ALL the effort. Patient does none of the effort to complete the activity. Or, the assistance of 2 or more helpers is required for the patient to complete the activity. If activity was not attempted, code reason: 7-Patient Refused. 9-Not Applicable-not attempted and the patient did not perform the activity before the current illness, exacerbation or injury. 10-Not Attempted due to Environmental Limitations-(lack of equipment, weather restraints, etc.). 88-Not Attempted due to Medical Conditions or Safety Concerns. Roll Left & Right (QC): 3 Lying to Sitting/Side of Bed(Q: 3 Sit to Stand (QC): 3 Chair/Mow-tf-Oljye Xfer(QC): 3 Gait Training Distance: 6' Gait Persons Needed: 1 Gait Assistive Device: FWW Min assist, can ambulate and turn but cannot step backwards to the recliner and it has to be pushed up to her. Exercises Seated Therapy Exercises: Ankle pumps, Long arc quads Seated Reps: 20 Treatments bed mobility and transfers, ambulation, LE exercise Assessment Current Status: Fair Progress slowly improving general mobility PT Short Term Goals Short Term Goals Time Frame: Mar 17, 2020 Roll Left & Right: 2 Sit to lyin Lying to sitting on side of be: 2 Sit to stand: 2 Chair/rfz-ms-cjusg transfer: 2 PT Cover Stitch Machine Operator Goals Custodial Goals PT Custodial Goals Time Frame: Apr 01, 2020 Roll Left & Right (QC): 4 Sit to Lying (QC): 4 Lying-Sitting on Side/Bed(QC): 4 Sit to Stand (QC): 4 Chair/Nmr-tg-Ahftc Xfer(QC): 4 Toilet Transfer (QC): 4 Car Transfer (QC): 4 Does the Patient Walk: Yes Walk 10 feet (QC): 4 Walk 50ft with 2 Turns (QC): 4 PT Plan Problem List Problem List: Activity Tolerance, Functional Strength, Safety, Balance, Gait, Transfer, Bed Mobility, ROM Treatment/Plan Treatment Plan: Continue Plan of Care Treatment Plan: Bed Mobility, Education, Functional Activity Cristela, Functional Strength, Gait, Safety, Therapeutic Exercise, Transfers Treatment Duration: Apr 01, 2020 Frequency: 6 times per week Estimated Hrs Per Day: .5 hour per day Patient and/or Family Agrees t: Yes Safety Risks/Education Patient Education: Gait Training, Transfer Techniques, Correct Positioning, Safety Issues Teaching Recipient: Patient Teaching Methods: Demonstration, Discussion Response to Teaching: Reinforcement Needed Time/GCodes Time In: 1056 Time Out: 1110 Total Billed Treatment Time: 14 Total Billed Treatment 1 visit FA MARI WEAVER PT Mar 08, 2020 11:22
[2020-03-08 12:01] VITALS: BP 188/93
[2020-03-08] MEDS: meTOprolol TARTRATE 25 MG (LOPRESSOR) TABLET PO SCH ×2 (12:09→21:14)
[2020-03-08] MEDS: ASPIRIN 81 MG CHEW (CHILDREN'S ASA) PO SCH (12:09)
--- NOTE | 2020-03-08 12:30 | Progress Note - Hospitalist ---
EVONNEFROYLANMICHAELDIANA MED STUDENT 03/08/20 1230: Subjective HPI/CC On Admission Time Seen by Provider: 08:00 Subjective/Events-last exam Patient had a fall last night. She states she was adjusting in the bed. The floor in her room was very slick. She was moved rooms so housekeeping could remedy this. She had some leg pain after her fall, but states this is her chronic pain. Legs were a little less restless last night with Mirapex. Skin breakdown on heels look improved. Working with PT daily. Continues to be on 2.5 L O2 via nasal cannula during the day. She did not use a BiPap last night and did not report any sleeping issues. She desires to go home. Objective Exam Vital Signs Vital Signs Date Time Temp Pulse Resp B/P (MAP) Pulse Ox O2 Delivery O2 Flow Rate FiO2 03/08/20 12:01 36.0 88 18 188/93 (124) 96 High Flow N/C 3.00 03/03/20 20:15 40 Capillary Refill : Less Than 3 SecondsLess Than 3 Seconds General Appearance: No Apparent Distress, WD/WN, Chronically ill, Obese HEENT: Normal ENT Inspection Neck: Non Tender, Supple Respiratory: Chest Non Tender, Lungs Clear, Normal Breath Sounds, No Accessory Muscle Use, No Respiratory Distress Cardiovascular: Regular Rate, Rhythm, No Murmur, Normal Peripheral Pulses Gastrointestinal: Normal Bowel Sounds, No Pulsatile Mass, Non Tender, Soft Extremity: Non Tender, Pedal Edema Skin: Normal Color, Warm/Dry, Other (improved skin breakdown, bilateral heels) Results/Procedures Lab Laboratory Tests 03/08/20 06:13 Patient resulted labs reviewed. Assessment/Plan Assessment and Plan Assess & Plan/Chief Complaint History of influenza B and Respiratory failure, acute on chronic with Pseudomonas pneumonia, completed 14 days of Zosyn COPD with hypercapnic respiratory failure, with tobacco dependence Diffuse weakness and disability due to long illness Congestive heart failure, EF 25% Obesity Acute on chronic renal insufficiency Hypokalemia Osteoarthritis history of hypertension Plan Patient is a good candidate for IRF Continue with PT for weakness and mobility concerns Discussed with patient to notify staff when she needs to get out of bed, patient verbalized understanding Continue to monitor O2 needs at night, consider restarting BiPap if needed Cardiology consulted for CHF concerns, continue to monitor Continue to monitor renal insufficiency with labs, Lasix for pedal edema Discuss smoking cessation at discharge Clinical Quality Measures DVT/VTE Risk/Contraindication: Risk Factor Score Per Nursin RFS Level Per Nursing on Admit: 4+=Very High JANICE THOMPSON DO 03/09/20 0600: Subjective HPI/CC On Admission Date Seen by Provider: Mar 08, 2020 Subjective/Events-last exam Pt doing pretty well Will plan on going to rehab tomorrow Had a fall last night but the floor was very slippery Didnt use the BiPAP last night Remains on 2.5 liters by nasal cannula now Supervisory-Addendum Brief Verification & Attestation Participated in pt care: history, MDM, physical Personally performed: exam, history, MDM, supervision of care Care discussed with: Medical Student Procedures: n/a Results interpretation: Verified all documentation Verification and Attestation of Medical Student E/M Service A medical student performed and documented this service in my presence. I reviewed and verified all information documented by the medical student and made modifications to such information, when appropriate. I personally performed the physical exam and medical decision making. Janice Thompson, Mar 09, 2020,05:59 DIANA SHEEHAN MED STUDENT Mar 08, 2020 12:30 JANICE THOMPSON DO Mar 09, 2020 06:00
[2020-03-08 16:38] VITALS: BP 133/73
[2020-03-08 20:38] VITALS: BP 139/75
[2020-03-08] MEDS: PRAMIPEXOLE 0.125 MG (MIRAPEX) TABLET PO SCH (21:13)
[2020-03-09] VITALS (7 sets, daily range): BP systolic 138–189; BP diastolic 70–99
[2020-03-09] MEDS: RT-ALBUTEROL/IPRATROPIUM 3 ML (DUONEB) VIAL INH SCH ×4 (00:03→10:23)
[2020-03-09 04:51] LABS: BASOPHILS % (AUTO) 1 % (0-10); EOSINOPHILS # (AUTO) 0.3 10^3/uL (0.0-0.3); EOSINOPHILS % (AUTO) 5 % (0-10); HEMATOCRIT 38 % (35-52); LYMPHOCYTES # (AUTO) 1.7 10^3/uL (1.0-4.0); LYMPHOCYTES % (AUTO) 26 % (12-44); MEAN CORPUSCULAR HEMOGLOBIN 25 pg (25-34); MEAN CORPUSCULAR HGB CONC 29 g/dL (32-36); MEAN CORPUSCULAR VOLUME 87 fL (80-99); MONOCYTES # (AUTO) 0.7 10^3/uL (0.0-1.0); MONOCYTES % (AUTO) 11 % (0-12); NEUTROPHILS # (AUTO) 3.7 10^3/uL (1.8-7.8); NEUTROPHILS % (AUTO) 57 % (42-75); PLATELET COUNT 303 10^3/uL (130-400); WHITE BLOOD COUNT 6.5 10^3/uL (4.3-11.0)
[2020-03-09 05:10] LABS: BUN/CREATININE RATIO 11; CALCIUM 8.6 MG/DL (8.5-10.1); CARBON DIOXIDE 29 MMOL/L (21-32); CHLORIDE 98 MMOL/L (98-107); GFR ESTIMATED > 60; GLUCOSE 102 MG/DL (70-105); MAGNESIUM 1.4 MG/DL (1.6-2.4); PHOSPHORUS 4.3 MG/DL (2.3-4.7); POTASSIUM 3.6 MMOL/L (3.6-5.0); SODIUM 141 MMOL/L (135-145)
[2020-03-09] MEDS: inSUlin ASPART (NovoLOG) 1 UNIT/0.01 ML (CHARGE PER UNIT) SC SCH ×2 (05:48→11:12)
--- NOTE | 2020-03-09 08:50 | NUR ---
PATIENT TO BSC WITH SIT TO STAND. PATIENT CRYING, STATING SHE HAD A 'HORRIBLE NIGHT' MUCH ENCOURAGEMENT GIVEN AND HAND OVER HAND INSTRUCTION FOR ACTIVITY. PATIENT C/O NOT SLEEPING WELL LAST NOC. TEARFUL, PRESENCE PROVIDED. PATIENT VOIDED CLEAR, YELLOW URINE. WOUND ON BUTTOCK COVERED WITH ALLEVYN. ZINC AND NYSTATIN PER ORDER AFTER PROVIDING [facility]. DENIES NEEDS OR C/O AT THIS TIME. STATES SHE JUST WANTS TO SLEEP. PATIENT IS ON AN AIR BED WITH TURNING Q2H. B/C ALARM IS ON. CONT TO MONITOR.
[2020-03-09] MEDS: meTOprolol TARTRATE 25 MG (LOPRESSOR) TABLET PO SCH (09:30)
[2020-03-09] MEDS: FUROSEMIDE 20 MG (LASIX) TAB PO SCH (09:30)
[2020-03-09] MEDS: KCL 20 MEQ TAB (K-DUR) PO SCH (09:30)
[2020-03-09] MEDS: PANTOPRAZOLE 40 MG (PROTONIX) TAB PO SCH (09:30)
[2020-03-09] MEDS: ASPIRIN 81 MG CHEW (CHILDREN'S ASA) PO SCH (09:30)
[2020-03-09] MEDS: ACETAMINOPHEN 325 MG TABLET PO PRN (09:31)
[2020-03-09] MEDS: ENOXAPARIN 40 MG/0.4 ML (LOVENOX) SYR SC SCH (09:32)
[2020-03-09] MEDS: LOSARTAN 25 MG (COZAAR) TAB PO SCH (09:35)
[2020-03-09] MEDS: NYSTATIN CREAM (MYCOSTATIN) 30 GM TUBE TP SCH (09:37)
--- NOTE | 2020-03-09 09:40 | NUR ---
BP 179/99, HR 94. BP MEDS ADMINISTERED. WILL RECHECK IN 30MIN. PATIENT ASYMPTOMATIC DENIES ANY C/O. CONT TO MONITOR.
--- NOTE | 2020-03-09 10:10 | NUR ---
bp 183/99. DR EMMANUEL NOTIFIED
--- NOTE | 2020-03-09 10:28 | Discharge Summary ---
Diagnosis/Chief Complaint Date of Admission Feb 16, 2020 at 21:30 Date of Discharge Discharge Date: Mar 09, 2020 Discharge Diagnosis History of influenza B and Respiratory failure, acute on chronic with Pseudomonas pneumonia, completed 14 days of Zosyn COPD with hypercapnic respiratory failure, with tobacco dependence Diffuse weakness and disability due to long illness Congestive heart failure, EF 25% Obesity Acute on chronic renal insufficiency Hypokalemia Osteoarthritis history of hypertension Discharge Summary Discharge Physical Examination Allergies: Coded Allergies: No Known Drug Allergies (Unverified , 05/06/19) Vitals & I&Os Vital Signs Date Time Temp Pulse Resp B/P (MAP) Pulse Ox O2 Delivery O2 Flow Rate FiO2 03/09/20 11:20 80 143/85 (104) 03/09/20 10:23 90 Nasal Cannula 2.00 03/09/20 08:00 36.4 24 General Appearance: Alert, Oriented X3, Cooperative Respiratory: Clear to Auscultation Cardiovascular: Regular Rate Neuro: Normal Gait, Normal Speech, Strength at 5/5 X4 Ext Psych/Mental Status: Mental Status NL Hospital Course Was the Problem List Reviewed?: Yes Patient is a 55 yo female with history of COPD, CHF with EF of 25%, tobacco dependence, chronic renal insufficiency, osteoarthritis, and hypertension who presented to the ED on 02/15 for shortness of breath, abdominal swelling, leg swelling and altered mental status. She was admitted to [facility] due to respiratory failure and was intubated prior to transfer. COVID test came back negative, though she tested positive for Pseudomonas pneumonia. She completed a 14 day course of Zosyn. She was reintubated on 02/16 due to self-extubation. She was extubated on 02/27 and was switched to BiPAP. She was moved to fourth floor and PT was started to help her mobility and oxygen use. She was moved to nasal cannula throughout the day and BiPAP at night, though the last two nights she has not been given the BiPAP. She did have one fall, but the floor in her room was slippery and could have contributed. She continues to have some debility and oxygen dependence, so she is being transferred to IRF to aid in improvement of these concerns. DIANA SHEEHAN STUDENT Labs (last 24 hrs) Laboratory Tests 02/16/20 20:09: Urine Color YELLOW, Urine Clarity CLEAR, Urine pH 6.0, Urine Specific [place] 1.025H, Urine Protein 1+H, Urine Glucose (UA) NEGATIVE, Urine Ketones NEGATIVE, Urine Nitrite NEGATIVE, Urine Bilirubin NEGATIVE, Urine Urobilinogen 4.0, Urine Leukocyte Esterase TRACEH, Urine RBC (Auto) NEGATIVE, Urine RBC NONE, Urine WBC 0-2, Urine Squamous Epithelial Cells 0-2, Urine Crystals NONE, Urine Bacteria TRACE, Urine Casts PRESENT, Urine Hyaline Casts 2-5H, Urine Mucus SMALLH, Urine Culture Indicated NO, Urine Opiates Screen NEGATIVE, Urine Oxycodone Screen NEGATIVE, Urine Methadone Screen NEGATIVE, Urine Propoxyphene Screen NEGATIVE, Urine Barbiturates Screen NEGATIVE, Ur Tricyclic Antidepressants Screen NEGATIVE, Urine Phencyclidine Screen NEGATIVE, Urine Amphetamines Screen NEG ATIVE, Urine Methamphetamines Screen NEGATIVE, Urine Benzodiazepines Screen NEGATIVE, Urine Cocaine Screen NEGATIVE, Urine Cannabinoids Screen NEGATIVE 02/16/20 20:30: White Blood Count 9.3, Red Blood Count 5.37H, Hemoglobin 13.6, Hematocrit 47, Mean Corpuscular Volume 87, Mean Corpuscular Hemoglobin 25, Mean Corpuscular Hemoglobin Concent 29L, Red Cell Distribution Width 17.8H, Platelet Count 220, Mean Platelet Volume 10.3, Immature Granulocyte % (Auto) 0, Neutrophils (%) (Auto) 75, Lymphocytes (%) (Auto) 13, Monocytes (%) (Auto) 11, Eosinophils (%) (Auto) 0, Basophils (%) (Auto) 0, Neutrophils # (Auto) 7.0, Lymphocytes # (Auto) 1.3, Monocytes # (Auto) 1.0, Eosinophils # (Auto) 0.0, Basophils # (Auto) 0.0, Immature Granulocyte # (Auto) 0.0, Prothrombin Time 15.1H, INR Comment 1.2, Blood Gas Puncture Site UNK, Blood Gas Patient Temperature 37, Arterial Blood pH 7.31*L, Arterial Blood Partial Pressure CO2 82*H, Arterial Blood Partial Pressure O2 66L, Arterial Blood HCO3 40H, Arterial Blood Total CO2 42.8H, Arterial Blood Oxygen Saturation 89L, Arterial Blood Base Excess 13.6H, [place] Test UNK, Blood Gas Ventilator Setting NO, Blood Gas Inspired Oxygen UNK, Sodium Level 138, Potassium Level 4.4, Chloride Level 90L, Carbon Dioxide Level 35H, Anion Gap 13, Blood Urea Nitrogen 83H, Creatinine 1.86H, Estimat Glomerular Filtration Rate 28, BUN/Creatinine Ratio 45, Glucose Level 125H, Calcium Level 9.0, Corrected Calcium 9.3, Total Bilirubin 1.4H, Aspartate Amino Transf (AST/SGOT) 42H, Alanine Aminotransferase (ALT/SGPT) 46, Alkaline Phosphatase 82, Ammonia 34H, Troponin I 0.045H, B-Type Natriuretic Peptide 1302.3H, Total Protein 6.6, Albumin 3.6, Procalcitonin 0.12H 02/16/20 20:54: Coronavirus 2019 ([facility]) Negative 02/16/20 21:30: Lab Scanned Report Referred Lab Report 02/17/20 01:40: Blood Gas Puncture Site RT RAD, Blood Gas Patient Temperature 35, Arterial Blood pH 7.59H, Arterial Blood Partial Pressure CO2 35, Arterial Blood Partial Pressure O2 40L, Arterial Blood HCO3 34H, Arterial Blood Total CO2 35.3H, Arterial Blood Oxygen Saturation 83L, Arterial Blood Base Excess 10.9H, [place] Test POS, Blood Gas Ventilator Setting YES, Blood Gas Inspired Oxygen 100% 02/17/20 02:47: White Blood Count 9.4, Red Blood Count 5.44H, Hemoglobin 13.8, Hematocrit 47, Mean Corpuscular Volume 86, Mean Corpuscular Hemoglobin 25, Mean Corpuscular Hemoglobin Concent 30L, Red Cell Distribution Width 17.5H, Platelet Count 209, Mean Platelet Volume 10.3, Immature Granulocyte % (Auto) 1, Neutrophils (%) (Auto) 79H, Lymphocytes (%) (Auto) 13, Monocytes (%) (Auto) 7, Eosinophils (%) (Auto) 0, Basophils (%) (Auto) 0, Neutrophils # (Auto) 7.4, Lymphocytes # (Auto) 1.3, Monocytes # (Auto) 0.6, Eosinophils # (Auto) 0.0, Basophils # (Auto) 0.0, Immature Granulocyte # (Auto) 0.1, D-Dimer 2.73H, Sodium Level 137, Potassium Level 4.0, Chloride Level 89L, Carbon Dioxide Level 32, Anion Gap 16H, Blood Urea Nitrogen 83H, Creatinine 1.64H, Estimat Glomerular Filtration Rate 33, BUN/Creatinine Ratio 51, Glucose Level 138H, Calcium Level 8.8, Phosphorus Level 3.6, Magnesium Level 2.2, Triglycerides Level 124 02/17/20 04:55: Coronavirus (COVID-19)(PCR) Negative 02/17/20 07:45: Blood Gas Puncture Site RIGHT RAD, Blood Gas Patient Temperature 37.0, Arterial Blood pH 7.54H, Arterial Blood Partial Pressure CO2 43, Arterial Blood Partial Pressure O2 90, Arterial Blood HCO3 37H, Arterial Blood Total CO2 38.7H, Arterial Blood Oxygen Saturation 97, Arterial Blood Base Excess 13.5H, [place] Test YES-POS, Blood Gas Ventilator Setting YES, Blood Gas Inspired Oxygen 100% 02/17/20 11:50: Glucometer 143H 02/17/20 17:22: Glucometer 163H 02/17/20 23:10: Glucometer 147H 02/18/20 03:15: White Blood Count 14.9H, Red Blood Count 4.99, Hemoglobin 12.6, Hematocrit 41, Mean Corpuscular Volume 82, Mean Corpuscular Hemoglobin 25, Mean Corpuscular Hemoglobin Concent 31L, Red Cell Distribution Width 17.4H, Platelet Count 211, Mean Platelet Volume 10.1, Immature Granulocyte % (Auto) 1, Neutrophils (%) (Auto) 88H, Lymphocytes (%) (Auto) 5L, Monocytes (%) (Auto) 6, Eosinophils (%) (Auto) 0, Basophils (%) (Auto) 0, Neutrophils # (Auto) 13.1H, Lymphocytes # (Auto) 0.8L, Monocytes # (Auto) 1.0, Eosinophils # (Auto) 0.0, Basophils # (Auto) 0.0, Immature Granulocyte # (Auto) 0.1, Neutrophils % (Manual) 88, Lymphocytes % (Manual) 2, Monocytes % (Manual) 4, Band Neutrophils 6, Nucleated Red Blood Cells 1, Blood Morphology Comment NORMAL, Blood Gas Puncture Site LEFT RADIAL, Blood Gas Patient Temperature 36.3, Arterial Blood pH 7.56H, Arterial Blood Partial Pressure CO2 40, Arterial Blood Partial Pressure O2 73L, Arterial Blood HCO3 36H, Arterial Blood Total CO2 37.2H, Arterial Blood Oxygen Saturation 95, Arterial Blood Base Excess 12.4H, [place] Test YES-POS, Blood Gas Ventilator Setting YES, Blood Gas Inspired Oxygen 40%, Sodium Level 139, Potassium Level 3.9, Chloride Level 92L, Carbon Dioxide Level 33H, Anion Gap 14, Blood Urea Nitrogen 72H, Creatinine 1.72H, Estimat Glomerular Filtration Rate 31, BUN/Creatinine Ratio 42, Glucose Level 137H, Calcium Level 8.2L, Phosphorus Level 4.1, Magnesium Level 2.2, Triglycerides Level 143 02/18/20 06:47: Blood Gas Puncture Site LEFT RADIAL, Blood Gas Patient Temperature 36.4, Arterial Blood pH 7.55H, Arterial Blood Partial Pressure CO2 41, Arterial Blood Partial Pressure O2 90, Arterial Blood HCO3 35H, Arterial Blood Total CO2 36.7H, Arterial Blood Oxygen Saturation 98, Arterial Blood Base Excess 11.8H, [place] Test YES-POS, Blood Gas Ventilator Setting YES, Blood Gas Inspired Oxygen 40% 02/18/20 10:40: Troponin I 0.261H 02/18/20 11:36: Glucometer 109 02/18/20 17:13: Glucometer 106 02/18/20 23:25: Glucometer 106 02/19/20 03:40: White Blood Count 11.9H, Red Blood Count 4.91, Hemoglobin 12.3, Hematocrit 41, Mean Corpuscular Volume 83, Mean Corpuscular Hemoglobin 25, Mean Corpuscular Hemoglobin Concent 30L, Red Cell Distribution Width 17.5H, Platelet Count 211, Mean Platelet Volume 9.9, Immature Granulocyte % (Auto) 0, Neutrophils (%) (Auto) 83H, Lymphocytes (%) (Auto) 10L, Monocytes (%) (Auto) 7, Eosinophils (%) (Auto) 0, Basophils (%) (Auto) 0, Neutrophils # (Auto) 9.8H, Lymphocytes # (Auto) 1.2, Monocytes # (Auto) 0.8, Eosinophils # (Auto) 0.0, Basophils # (Auto) 0.0, Immature Granulocyte # (Auto) 0.0, Sodium Level 141, Potassium Level 3.8, Chloride Level 95L, Carbon Dioxide Level 31, Anion Gap 15H, Blood Urea Nitrogen 58H, Creatinine 1.52H, Estimat Glomerular Filtration Rate 36, BUN/Creatinine Ratio 38, Glucose Level 90, Calcium Level 8.1L, Phosphorus Level 5.0H, Magnesium Level 2.1 02/19/20 04:00: Blood Gas Puncture Site RIGHT RADIAL, Blood Gas Patient Temperature 35.9, Arterial Blood pH 7.53H, Arterial Blood Partial Pressure CO2 42, Arterial Blood Partial Pressure O2 75L, Arterial Blood HCO3 36H, Arterial Blood Total CO2 37.2H , Arterial Blood Oxygen Saturation 95, Arterial Blood Base Excess 11.9H, [place] Test YES-POS, Blood Gas Ventilator Setting YES, Blood Gas Inspired Oxygen 35% 02/19/20 09:05: Vancomycin Level Trough 23.7H 02/19/20 11:05: Glucometer 89 02/19/20 17:46: Glucometer 91 02/19/20 17:55: Vancomycin Level Trough 18.9 02/20/20 00:45: Glucometer 99 02/20/20 02:58: Blood Gas Puncture Site RIGHT RADIAL, Blood Gas Patient Temperature 37.0, Arterial Blood pH 7.48H, Arterial Blood Partial Pressure CO2 49H, Arterial Blood Partial Pressure O2 93, Arterial Blood HCO3 37H, Arterial Blood Total CO2 38.0H, Arterial Blood Oxygen Saturation 97, Arterial Blood Base Excess 12.2H, [place] Test ART LINE, Blood Gas Ventilator Setting YES, Blood Gas Inspired Oxygen 35% 02/20/20 03:01: White Blood Count 8.9, Red Blood Count 4.80, Hemoglobin 12.1, Hematocrit 40, Mean Corpuscular Volume 84, Mean Corpuscular Hemoglobin 25, Mean Corpuscular Hemoglobin Concent 30L, Red Cell Distribution Width 17.7H, Platelet Count 188, Mean Platelet Volume 10.0, Immature Granulocyte % (Auto) 0, Neutrophils (%) (Auto) 77H, Lymphocytes (%) (Auto) 14, Monocytes (%) (Auto) 8, Eosinophils (%) (Auto) 0, Basophils (%) (Auto) 0, Neutrophils # (Auto) 6.8, Lymphocytes # (Auto) 1.3, Monocytes # (Auto) 0.7, Eosinophils # (Auto) 0.0, Basophils # (Auto) 0.0, Immature Granulocyte # (Auto) 0.0, Sodium Level 142, Potassium Level 3.2L, Chloride Level 95L, Carbon Dioxide Level 34H, Anion Gap 13, Blood Urea Nitrogen 43H, Creatinine 1.42H, Estimat Glomerular Filtration Rate 38, BUN/Creatinine Ratio 30, Glucose Level 85, Calcium Level 8.2L, Phosphorus Level 3.9, Magnesium Level 1.8, Triglycerides Level 124 02/20/20 09:35: Blood Gas Puncture Site RIGHT RADIAL, Blood Gas Patient Temperature 36.3, Arterial Blood pH 7.44H, Arterial Blood Partial Pressure CO2 56H, Arterial Blood Partial Pressure O2 88, Arterial Blood HCO3 37H, Arterial Blood Total CO2 39.1H, Arterial Blood Oxygen Saturation 97, Arterial Blood Base Excess 12.4H, [place] Test POS, Blood Gas Ventilator Setting YES, Blood Gas Inspired Oxygen 45% 02/20/20 10:47: Glucometer 98 02/20/20 17:55: Glucometer 110 02/20/20 23:43: Glucometer 94 02/21/20 02:52: White Blood Count 8.9, Red Blood Count 4.75, Hemoglobin 11.8, Hematocrit 41, Mean Corpuscular Volume 86, Mean Corpuscular Hemoglobin 25, Mean Corpuscular Hemoglobin Concent 29L, Red Cell Distribution Width 17.9H, Platelet Count 205, Mean Platelet Volume 10.0, Immature Granulocyte % (Auto) 0, Neutrophils (%) (Auto) 73, Lymphocytes (%) (Auto) 16, Monocytes (%) (Auto) 10, Eosinophils (%) (Auto) 1, Basophils (%) (Auto) 0, Neutrophils # (Auto) 6.5, Lymphocytes # (Auto) 1.4, Monocytes # (Auto) 0.8, Eosinophils # (Auto) 0.1, Basophils # (Auto) 0.0, Immature Granulocyte # (Auto) 0.0, Sodium Level 142, Potassium Level 3.5L, Chloride Level 95L, Carbon Dioxide Level 35H, Anion Gap 12, Blood Urea Nitrogen 30H, Creatinine 1.28, Estimat Glomerular Filtration Rate 43, BUN/Creatinine Ratio 23, Glucose Level 94, Calcium Level 8.2L, Phosphorus Level 3.3, Magnesium Level 1.6, Triglycerides Level 135 02/21/20 03:01: Blood Gas Puncture Site RIGHT RADIAL, Blood Gas Patient Temperature 37.3, Arterial Blood pH 7.46H, Arterial Blood Partial Pressure CO2 52H, Arterial Blood Partial Pressure O2 96H, Arterial Blood HCO3 37H, Arterial Blood Total CO2 38.1H , Arterial Blood Oxygen Saturation 98, Arterial Blood Base Excess 12.1H, [place] Test YES-POS, Blood Gas Ventilator Setting YES, Blood Gas Inspired Oxygen 45% 02/21/20 08:50: Blood Gas Puncture Site RT RAD, Blood Gas Patient Temperature 99.1, Arterial Blood pH 7.35L, Arterial Blood Partial Pressure CO2 71*H, Arterial Blood Partial Pressure O2 100H, Arterial Blood HCO3 38H, Arterial Blood Total CO2 40.1H, Arterial Blood Oxygen Saturation 97, Arterial Blood Base Excess 12.0H, [place] Test NA, Blood Gas Ventilator Setting YES, Blood Gas Inspired Oxygen 45% 02/21/20 11:35: Blood Gas Puncture Site NA, Blood Gas Patient Temperature 99.1, Arterial Blood pH 7.41, Arterial Blood Partial Pressure CO2 59H, Arterial Blood Partial Pressure O2 84, Arterial Blood HCO3 36H, Arterial Blood Total CO2 37.8H, Arterial Blood Oxygen Saturation 96, Arterial Blood Base Excess 10.9H, [place] Test NA, Blood Gas Ventilator Setting YES, Blood Gas Inspired Oxygen 45% 02/21/20 11:41: Glucometer 100 02/21/20 17:31: Glucometer 74 02/21/20 23:17: Glucometer 82 02/22/20 02:25: Blood Gas Puncture Site RIGHT RADIAL, Blood Gas Patient Temperature 36.9, Arterial Blood pH 7.54H, Arterial Blood Partial Pressure CO2 40, Arterial Blood Partial Pressure O2 67L, Arterial Blood HCO3 34H, Arterial Blood Total CO2 35.2H , Arterial Blood Oxygen Saturation 93L, Arterial Blood Base Excess 10.5H, [place] Test YES-POS, Blood Gas Ventilator Setting YES, Blood Gas Inspired Oxygen 60% 02/22/20 02:30: White Blood Count 10.5, Red Blood Count 4.70, Hemoglobin 11.6, Hematocrit 40, Mean Corpuscular Volume 84, Mean Corpuscular Hemoglobin 25, Mean Corpuscular Hemoglobin Concent 29L, Red Cell Distribution Width 18.1H, Platelet Count 240, Mean Platelet Volume 10.0, Immature Granulocyte % (Auto) 1, Neutrophils (%) (Auto) 74, Lymphocytes (%) (Auto) 14, Monocytes (%) (Auto) 10, Eosinophils (%) (Auto) 1, Basophils (%) (Auto) 0, Neutrophils # (Auto) 7.9H, Lymphocytes # (Auto) 1.5, Monocytes # (Auto) 1.0, Eosinophils # (Auto) 0.1, Basophils # (Auto) 0.0, Immature Granulocyte # (Auto) 0.1, Sodium Level 142, Potassium Level 3.1L, Chloride Level 96L, Carbon Dioxide Level 32, Anion Gap 14, Blood Urea Nitrogen 22H, Creatinine 1.13, Estimat Glomerular Filtration Rate 50, BUN/Creatinine Ratio 19, Glucose Level 73, Calcium Level 8.3L, Phosphorus Level 2.4, Magnesium Level 1.7, Triglycerides Level 140, Procalcitonin 0.20H 02/22/20 17:30: Glucometer 101 02/22/20 23:19: Glucometer 121H 02/23/20 01:56: White Blood Count 9.7, Red Blood Count 4.96, Hemoglobin 12.3, Hematocrit 42, Mean Corpuscular Volume 85, Mean Corpuscular Hemoglobin 25, Mean Corpuscular Hemoglobin Concent 29L, Red Cell Distribution Width 18.6H, Platelet Count 270, Mean Platelet Volume 9.6, Immature Granulocyte % (Auto) 1, Neutrophils (%) (Auto) 75, Lymphocytes (%) (Auto) 11L, Monocytes (%) (Auto) 11, Eosinophils (%) (Auto) 3, Basophils (%) (Auto) 0, Neutrophils # (Auto) 7.2, Lymphocytes # (Auto) 1.0, Monocytes # (Auto) 1.0, Eosinophils # (Auto) 0.3, Basophils # (Auto) 0.0, Immature Granulocyte # (Auto) 0.1, Blood Gas Puncture Site LEFT RADIAL, Blood Gas Patient Temperature 36.6, Arterial Blood pH 7.52H, Arterial Blood Partial Pressure CO2 40, Arterial Blood Partial Pressure O2 74L, Arterial Blood HCO3 33H , Arterial Blood Total CO2 33.9H, Arterial Blood Oxygen Saturation 95, Arterial Blood Base Excess 9.1H, [place] Test ART LINE, Blood Gas Ventilator Setting YES, Blood Gas Inspired Oxygen 60%, Sodium Level 141, Potassium Level 3.5L, Chloride Level 97L, Carbon Dioxide Level 31, Anion Gap 13, Blood Urea Nitrogen 20H, Creatinine 1.11, Estimat Glomerular Filtration Rate 51, BUN/Creatinine Ratio 18, Glucose Level 122H, Calcium Level 8.4L, Phosphorus Level 3.7, Magnesium Level 1.9, B-Type Natriuretic Peptide 703.9H, Triglycerides Level 182H 02/23/20 11:40: Glucometer 125H 02/23/20 17:03: Glucometer 104 02/23/20 23:04: Glucometer 98 02/24/20 02:01: White Blood Count 8.8, Red Blood Count 4.92, Hemoglobin 12.0, Hematocrit 42, Mean Corpuscular Volume 85, Mean Corpuscular Hemoglobin 24L, Mean Corpuscular Hemoglobin Concent 29L, Red Cell Distribution Width 18.6H, Platelet Count 298, Mean Platelet Volume 9.9, Immature Granulocyte % (Auto) 1, Neutrophils (%) (Auto) 78H, Lymphocytes (%) (Auto) 10L, Monocytes (%) (Auto) 11, Eosinophils (%) (Auto) 1, Basophils (%) (Auto) 0, Neutrophils # (Auto) 6.9, Lymphocytes # (Auto) 0.9L, Monocytes # (Auto) 0.9, Eosinophils # (Auto) 0.1, Basophils # (Auto) 0.0, Immature Granulocyte # (Auto) 0.0, Sodium Level 141, Potassium Level 4.0, Chloride Level 98, Carbon Dioxide Level 28, Anion Gap 15H, Blood Urea Nitrogen 19H, Creatinine 1.05, Estimat Glomerular Filtration Rate 54, BUN/Creatinine Ratio 18, Glucose Level 111H, Calcium Level 8.7, Phosphorus Level 4.9H, Magnesium Level 1.9, Triglycerides Level 192H 02/24/20 04:01: Blood Gas Puncture Site LFT RAD, Blood Gas Patient Temperature 36.5, Arterial Blood pH 7.46H, Arterial Blood Partial Pressure CO2 45, Arterial Blood Partial Pressure O2 70L, Arterial Blood HCO3 32H, Arterial Blood Total CO2 33.0H, Arterial Blood Oxygen Saturation 94, Arterial Blood Base Excess 7.4H, [place] Test POS, Blood Gas Ventilator Setting YES, Blood Gas Inspired Oxygen 36% 02/24/20 11:23: Glucometer 108 02/24/20 18:21: Glucometer 95 02/24/20 23:26: Glucometer 115H 02/25/20 02:22: White Blood Count 7.5, Red Blood Count 4.62, Hemoglobin 11.4L, Hematocrit 39, Mean Corpuscular Volume 85, Mean Corpuscular Hemoglobin 25, Mean Corpuscular Hemoglobin Concent 29L, Red Cell Distribution Width 18.8H, Platelet Count 289, Mean Platelet Volume 10.0, Immature Granulocyte % (Auto) 0, Neutrophils (%) (Auto) 71, Lymphocytes (%) (Auto) 17, Monocytes (%) (Auto) 11, Eosinophils (%) (Auto) 1, Basophils (%) (Auto) 0, Neutrophils # (Auto) 5.3, Lymphocytes # (Auto) 1.3, Monocytes # (Auto) 0.8, Eosinophils # (Auto) 0.1, Basophils # (Auto) 0.0, Immature Granulocyte # (Auto) 0.0, Sodium Level 140, Potassium Level 3.4L, Chloride Level 97L, Carbon Dioxide Level 30, Anion Gap 13, Blood Urea Nitrogen 16, Creatinine 0.87, Estimat Glomerular Filtration Rate > 60, BUN/Creatinine Ratio 18, Glucose Level 102, Calcium Level 8.6, Phosphorus Level 4.6, Magnesium Level 1.9 02/25/20 02:24: Blood Gas Puncture Site RIGHT RADIAL, Blood Gas Patient Temperature 36.6, Arterial Blood pH 7.45H, Arterial Blood Partial Pressure CO2 47H, Arterial Blood Partial Pressure O2 70L, Arterial Blood HCO3 32H, Arterial Blood Total CO2 33.9H , Arterial Blood Oxygen Saturation 91L, Arterial Blood Base Excess 8.1H, [place] Test POSITIVE, Blood Gas Ventilator Setting YES, Blood Gas Inspired Oxygen 30 02/25/20 08:14: Blood Gas Puncture Site LT RAD, Blood Gas Patient Temperature 36.3, Arterial Blood pH 7.42, Arterial Blood Partial Pressure CO2 50H, Arterial Blood Partial Pressure O2 67L, Arterial Blood HCO3 32H, Arterial Blood Total CO2 33.7H, Arterial Blood Oxygen Saturation 88L, Arterial Blood Base Excess 7.5H, [place] Test YES-POS, Blood Gas Ventilator Setting YES, Blood Gas Inspired Oxygen 30% 02/25/20 11:35: Glucometer 83 02/25/20 12:15: Blood Gas Puncture Site LT RAD, Blood Gas Patient Temperature 36.8, Arterial Blood pH 7.38, Arterial Blood Partial Pressure CO2 54H, Arterial Blood Partial Pressure O2 65L, Arterial Blood HCO3 31H, Arterial Blood Total CO2 33.1H, Arterial Blood Oxygen Saturation 84L, Arterial Blood Base Excess 6.4H, [place] Test YES-POS, Blood Gas Ventilator Setting YES, Blood Gas Inspired Oxygen 30% 02/25/20 17:57: Glucometer 116H 02/25/20 23:25: Glucometer 76 02/26/20 03:40: White Blood Count 9.9, Red Blood Count 4.42, Hemoglobin 10.9L, Hematocrit 38, Mean Corpuscular Volume 86, Mean Corpuscular Hemoglobin 25, Mean Corpuscular Hemoglobin Concent 29L, Red Cell Distribution Width 18.9H, Platelet Count 265, Mean Platelet Volume 9.4, Immature Granulocyte % (Auto) 0, Neutrophils (%) (Auto) 77H, Lymphocytes (%) (Auto) 13, Monocytes (%) (Auto) 9, Eosinophils (%) (Auto) 0, Basophils (%) (Auto) 0, Neutrophils # (Auto) 7.6, Lymphocytes # (Auto) 1.3, Monocytes # (Auto) 0.9, Eosinophils # (Auto) 0.0, Basophils # (Auto) 0.0, Immature Granulocyte # (Auto) 0.0, Sodium Level 141, Potassium Level 3.7, Chloride Level 99, Carbon Dioxide Level 29, Anion Gap 13, Blood Urea Nitrogen 16, Creatinine 0.89, Estimat Glomerular Filtration Rate > 60, BUN/Creatinine Ratio 18, Glucose Level 107H, Calcium Level 8.5, Phosphorus Level 4.5, Magnesium Level 1.7, Triglycerides Level 188H 02/26/20 03:58: Blood Gas Puncture Site RIGHT RADIAL, Blood Gas Patient Temperature 36, Arterial Blood pH 7.45H, Arterial Blood Partial Pressure CO2 45, Arterial Blood Partial Pressure O2 68L, Arterial Blood HCO3 31H, Arterial Blood Total CO2 32.8H, Arterial Blood Oxygen Saturation 92L, Arterial Blood Base Excess 7.0H, [place] Test POSITIVE, Blood Gas Ventilator Setting YES, Blood Gas Inspired Oxygen 30 02/26/20 12:34: Glucometer 100 02/26/20 13:14: Blood Gas Puncture Site RIGHT RADIAL, Blood Gas Patient Temperature 37.1, Arterial Blood pH 7.40, Arterial Blood Partial Pressure CO2 54H, Arterial Blood Partial Pressure O2 66L, Arterial Blood HCO3 33H, Arterial Blood Total CO2 34.6H , Arterial Blood Oxygen Saturation 87L, Arterial Blood Base Excess 8.1H, [place] Test POSITIVE, Blood Gas Ventilator Setting YES, Blood Gas Inspired Oxygen 30% 02/26/20 17:11: Glucometer 135H 02/26/20 23:25: Glucometer 122H 02/27/20 03:03: White Blood Count 10.8, Red Blood Count 4.32, Hemoglobin 10.8L, Hematocrit 37, Mean Corpuscular Volume 85, Mean Corpuscular Hemoglobin 25, Mean Corpuscular Hemoglobin Concent 30L, Red Cell Distribution Width 18.8H, Platelet Count 293, Mean Platelet Volume 9.9, Immature Granulocyte % (Auto) 0, Neutrophils (%) (Auto) 80H, Lymphocytes (%) (Auto) 11L, Monocytes (%) (Auto) 7, Eosinophils (%) (Auto) 1, Basophils (%) (Auto) 0, Neutrophils # (Auto) 8.7H, Lymphocytes # (Auto) 1.2, Monocytes # (Auto) 0.8, Eosinophils # (Auto) 0.1, Basophils # (Auto) 0.0, Immature Granulocyte # (Auto) 0.0, Sodium Level 141, Potassium Level 3.2L, Chloride Level 98, Carbon Dioxide Level 30, Anion Gap 13, Blood Urea Nitrogen 13, Creatinine 0.85, Estimat Glomerular Filtration Rate > 60, BUN/Creatinine Ratio 15, Glucose Level 122H, Calcium Level 8.5, Phosphorus Level 4.1, Magnesium Level 1.6 02/27/20 03:06: Blood Gas Puncture Site RIGHT RADIAL, Blood Gas Patient Temperature 36.7, Arterial Blood pH 7.47H, Arterial Blood Partial Pressure CO2 46H, Arterial Blood Partial Pressure O2 64L, Arterial Blood HCO3 33H, Arterial Blood Total CO2 34.2H , Arterial Blood Oxygen Saturation 91L, Arterial Blood Base Excess 8.6H, [place] Test POSITIVE, Blood Gas Ventilator Setting YES, Blood Gas Inspired Oxygen 30 02/27/20 05:11: Glucometer 130H 02/27/20 11:03: Glucometer 113H 02/27/20 17:38: Glucometer 113H 02/27/20 23:17: Glucometer 101 02/28/20 01:59: White Blood Count 9.9, Red Blood Count 4.22, Hemoglobin 10.4L, Hematocrit 36, Mean Corpuscular Volume 84, Mean Corpuscular Hemoglobin 25, Mean Corpuscular Hemoglobin Concent 29L, Red Cell Distribution Width 19.5H, Platelet Count 337, Mean Platelet Volume 10.4, Immature Granulocyte % (Auto) 0, Neutrophils (%) (Auto) 77H, Lymphocytes (%) (Auto) 15, Monocytes (%) (Auto) 7, Eosinophils (%) (Auto) 1, Basophils (%) (Auto) 0, Neutrophils # (Auto) 7.7, Lymphocytes # (Auto) 1.4, Monocytes # (Auto) 0.7, Eosinophils # (Auto) 0.1, Basophils # (Auto) 0.0, Immature Granulocyte # (Auto) 0.0, Sodium Level 140, Potassium Level 3.3L, Chloride Level 97L, Carbon Dioxide Level 28, Anion Gap 15H, Blood Urea Nitrogen 10, Creatinine 0.84, Estimat Glomerular Filtration Rate > 60, BUN/Creatinine Ratio 12, Glucose Level 108H, Calcium Level 8.7, Phosphorus Level 4.0, Magnesium Level 1.9 02/28/20 02:10: Blood Gas Puncture Site RIGHT RADIAL, Blood Gas Patient Temperature 37, Arterial Blood pH 7.45H, Arterial Blood Partial Pressure CO2 47H, Arterial Blood Partial Pressure O2 64L, Arterial Blood HCO3 32H, Arterial Blood Total CO2 33.8H, Arterial Blood Oxygen Saturation 89L, Arterial Blood Base Excess 8.1H, [place] Test POSITIVE, Blood Gas Ventilator Setting YES, Blood Gas Inspired Oxygen 30 02/28/20 09:30: Glucometer 106 02/28/20 09:35: Blood Gas Puncture Site LR, Blood Gas Patient Temperature 37.7, Arterial Blood pH 7.35L, Arterial Blood Partial Pressure CO2 59H, Arterial Blood Partial Pressure O2 74L, Arterial Blood HCO3 31H, Arterial Blood Total CO2 33.1H, Arterial Blood Oxygen Saturation 90L, Arterial Blood Base Excess 6.1H, [place] Test YES-POS, Blood Gas Ventilator Setting NO, Blood Gas Inspired Oxygen 40% 02/28/20 17:49: Glucometer 96 02/29/20 00:17: Glucometer 89 02/29/20 02:10: White Blood Count 7.6, Red Blood Count 3.98, Hemoglobin 9.8L, Hematocrit 34L, Mean Corpuscular Volume 86, Mean Corpuscular Hemoglobin 25, Mean Corpuscular Hemoglobin Concent 29L, Red Cell Distribution Width 19.9H, Platelet Count 369, Mean Platelet Volume 10.5, Immature Granulocyte % (Auto) 1, Neutrophils (%) (Auto) 72, Lymphocytes (%) (Auto) 17, Monocytes (%) (Auto) 9, Eosinophils (%) (Auto) 0, Basophils (%) (Auto) 1, Neutrophils # (Auto) 5.5, Lymphocytes # (Auto) 1.3, Monocytes # (Auto) 0.7, Eosinophils # (Auto) 0.0, Basophils # (Auto) 0.1, Immature Granulocyte # (Auto) 0.0, Sodium Level 143, Potassium Level 3.2L, Chloride Level 103, Carbon Dioxide Level 27, Anion Gap 13, Blood Urea Nitrogen 14, Creatinine 0.93, Estimat Glomerular Filtration Rate > 60, BUN/Creatinine Ratio 15, Glucose Level 85, Calcium Level 8.4L, Phosphorus Level 3.6, Magnesium Level 2.0 02/29/20 11:38: Glucometer 92 02/29/20 18:11: Glucometer 88 02/29/20 20:45: Glucometer 91 03/01/20 05:20: White Blood Count 6.2, Red Blood Count 3.90, Hemoglobin 9.7L, Hematocrit 34L, Mean Corpuscular Volume 88, Mean Corpuscular Hemoglobin 25, Mean Corpuscular Hemoglobin Concent 28L, Red Cell Distribution Width 19.8H, Platelet Count 390, Mean Platelet Volume 10.0, Immature Granulocyte % (Auto) 1, Neutrophils (%) (Auto) 66, Lymphocytes (%) (Auto) 18, Monocytes (%) (Auto) 10, Eosinophils (%) (Auto) 5, Basophils (%) (Auto) 1, Neutrophils # (Auto) 4.1, Lymphocytes # (Auto) 1.1, Monocytes # (Auto) 0.6, Eosinophils # (Auto) 0.3, Basophils # (Auto) 0.1, Immature Granulocyte # (Auto) 0.1, Sodium Level 146H, Potassium Level 3.5L, Chloride Level 105, Carbon Dioxide Level 28, Anion Gap 13, Blood Urea Nitrogen 15, Creatinine 0.75, Estimat Glomerular Filtration Rate > 60, BUN/Creatinine Ratio 20, Glucose Level 83, Calcium Level 8.5, Phosphorus Level 3.6, Magnesium Level 2.1 03/01/20 05:44: Glucometer 82 03/01/20 10:20: Glucometer 83 03/01/20 15:31: Glucometer 79 03/01/20 20:31: Glucometer 97 03/02/20 03:09: White Blood Count 6.8, Red Blood Count 3.85, Hemoglobin 9.6L, Hematocrit 35, Mean Corpuscular Volume 90, Mean Corpuscular Hemoglobin 25, Mean Corpuscular Hemoglobin Concent 28L, Red Cell Distribution Width 19.7H, Platelet Count 413H, Mean Platelet Volume 9.8, Immature Granulocyte % (Auto) 1, Neutrophils (%) (Aut o) 66, Lymphocytes (%) (Auto) 18, Monocytes (%) (Auto) 11, Eosinophils (%) (Auto) 3, Basophils (%) (Auto) 1, Neutrophils # (Auto) 4.5, Lymphocytes # (Auto) 1.2, Monocytes # (Auto) 0.7, Eosinophils # (Auto) 0.2, Basophils # (Auto) 0.1, Immature Granulocyte # (Auto) 0.1, Sodium Level 145, Potassium Level 3.4L, Chloride Level 104, Carbon Dioxide Level 28, Anion Gap 13, Blood Urea Nitrogen 14, Creatinine 0.72, Estimat Glomerular Filtration Rate > 60, BUN/Creatinine Ratio 19, Glucose Level 85, Calcium Level 8.6, Phosphorus Level 4.1, Magnesium Level 2.0 03/02/20 10:28: Glucometer 94 03/02/20 15:12: Glucometer 79 03/02/20 20:14: Glucometer 77 03/03/20 06:47: Glucometer 107 03/03/20 08:15: White Blood Count 6.6, Red Blood Count 4.38, Hemoglobin 10.9L, Hematocrit 40, Mean Corpuscular Volume 91, Mean Corpuscular Hemoglobin 25, Mean Corpuscular Hemoglobin Concent 27L, Red Cell Distribution Width 19.6H, Platelet Count 405H, Mean Platelet Volume 9.7, Immature Granulocyte % (Auto) 2, Neutrophils (%) (Auto) 69, Lymphocytes (%) (Auto) 15, Monocytes (%) (Auto) 10, Eosinophils (%) (Auto) 4, Basophils (%) (Auto) 1, Neutrophils # (Auto) 4.6, Lymphocytes # (Auto) 1.0, Monocytes # (Auto) 0.7, Eosinophils # (Auto) 0.2, Basophils # (Auto) 0.1, Immature Granulocyte # (Auto) 0.1, Sodium Level 146H, Potassium Level 3.6, Chloride Level 102, Carbon Dioxide Level 29, Anion Gap 15H, Blood Urea Nitrogen 10, Creatinine 0.72, Estimat Glomerular Filtration Rate > 60, BUN/Creatinine Ratio 14, Glucose Level 95, Calcium Level 8.9, Phosphorus Level 4.6, Magnesium Level 2.0 03/03/20 10:42: Glucometer 123H 03/03/20 15:49: Glucometer 94 03/03/20 16:56: Blood Gas Puncture Site LEFT RADIAL, Blood Gas Patient Temperature 36.6, Arterial Blood pH 7.31*L, Arterial Blood Partial Pressure CO2 70H, Arterial Blood Partial Pressure O2 81, Arterial Blood HCO3 35H, Arterial Blood Total CO2 36.8H, Arterial Blood Oxygen Saturation 95, Arterial Blood Base Excess 8.4H, [place] Test POSITIVE, Blood Gas Ventilator Setting NO, Blood Gas Inspired Oxygen 60% 03/03/20 19:15: Blood Gas Puncture Site LEFT RADIAL, Blood Gas Patient Temperature 36.4, Arteria l Blood pH 7.35L, Arterial Blood Partial Pressure CO2 63H, Arterial Blood Partial Pressure O2 67L, Arterial Blood HCO3 35H, Arterial Blood Total CO2 36.7H , Arterial Blood Oxygen Saturation 92L, Arterial Blood Base Excess 9.0H, [place] Test YES-POS, Blood Gas Ventilator Setting NO, Blood Gas Inspired Oxygen 30% 03/03/20 20:19: Glucometer 93 03/04/20 04:35: White Blood Count 5.8, Red Blood Count 3.90, Hemoglobin 10.0L, Hematocrit 34L, Mean Corpuscular Volume 87, Mean Corpuscular Hemoglobin 26, Mean Corpuscular Hemoglobin Concent 29L, Red Cell Distribution Width 22.6H, Platelet Count 482H, Mean Platelet Volume 10.4, Immature Granulocyte % (Auto) 1, Neutrophils (%) (Auto) 62, Lymphocytes (%) (Auto) 23, Monocytes (%) (Auto) 10, Eosinophils (%) (Auto) 3, Basophils (%) (Auto) 1, Neutrophils # (Auto) 3.6, Lymphocytes # (Auto) 1.3, Monocytes # (Auto) 0.6, Eosinophils # (Auto) 0.2, Basophils # (Auto) 0.0, Immature Granulocyte # (Auto) 0.1, Sodium Level 142, Potassium Level 3.0L, Chloride Level 99, Carbon Dioxide Level 32, Anion Gap 11, Blood Urea Nitrogen 9, Creatinine 0.64, Estimat Glomerular Filtration Rate > 60, BUN/Creatinine Ratio 14, Glucose Level 84, Calcium Level 8.5, Phosphorus Level 3.2, Magnesium Level 1.7 03/04/20 11:10: Glucometer 100 03/04/20 16:23: Glucometer 86 03/04/20 20:56: Glucometer 101 03/05/20 04:15: White Blood Count 5.8, Red Blood Count 4.01, Hemoglobin 10.1L, Hematocrit 35, Mean Corpuscular Volume 88, Mean Corpuscular Hemoglobin 25, Mean Corpuscular Hemoglobin Concent 29L, Red Cell Distribution Width 19.3H, Platelet Count 385, Mean Platelet Volume 9.8, Immature Granulocyte % (Auto) 1, Neutrophils (%) (Auto) 63, Lymphocytes (%) (Auto) 20, Monocytes (%) (Auto) 11, Eosinophils (%) (Auto) 4, Basophils (%) (Auto) 1, Neutrophils # (Auto) 3.7, Lymphocytes # (Auto) 1.2, Monocytes # (Auto) 0.7, Eosinophils # (Auto) 0.2, Basophils # (Auto) 0.0, Immature Granulocyte # (Auto) 0.1, Sodium Level 145, Potassium Level 2.9L, Ch loride Level 98, Carbon Dioxide Level 34H, Anion Gap 13, Blood Urea Nitrogen 8, Creatinine 0.62, Estimat Glomerular Filtration Rate > 60, BUN/Creatinine Ratio 13, Glucose Level 98, Calcium Level 8.7, Phosphorus Level 3.0, Magnesium Level 1.6 03/05/20 10:47: Glucometer 113H 03/05/20 15:51: Glucometer 113H 03/05/20 20:31: Glucometer 96 03/06/20 05:26: White Blood Count 6.0, Red Blood Count 4.30, Hemoglobin 10.6L, Hematocrit 37, Mean Corpuscular Volume 87, Mean Corpuscular Hemoglobin 25, Mean Corpuscular Hemoglobin Concent 28L, Red Cell Distribution Width 19.8H, Platelet Count 391, Mean Platelet Volume 9.7, Immature Granulocyte % (Auto) 1, Neutrophils (%) (Auto) 64, Lymphocytes (%) (Auto) 21, Monocytes (%) (Auto) 10, Eosinophils (%) (Auto) 4, Basophils (%) (Auto) 1, Neutrophils # (Auto) 3.8, Lymphocytes # (Auto) 1.3, Monocytes # (Auto) 0.6, Eosinophils # (Auto) 0.3, Basophils # (Auto) 0.0, Immature Granulocyte # (Auto) 0.1, Sodium Level 142, Potassium Level 3.2L, Chloride Level 96L, Carbon Dioxide Level 32, Anion Gap 14, Blood Urea Nitrogen 9, Creatinine 0.68, Estimat Glomerular Filtration Rate > 60, BUN/Creatinine Ratio 13, Glucose Level 93, Calcium Level 8.8, Phosphorus Level 2.8, Magnesium Level 1.8 03/06/20 10:59: Blood Gas Puncture Site RIGHT RADIAL, Blood Gas Patient Temperature 36.4, Arterial Blood pH 7.39, Arterial Blood Partial Pressure CO2 64H, Arterial Blood Partial Pressure O2 81, Arterial Blood HCO3 38H, Arterial Blood Total CO2 39.8H, Arterial Blood Oxygen Saturation 96, Arterial Blood Base Excess 12.2H, [place] Test POSITIVE, Blood Gas Ventilator Setting NO, Blood Gas Inspired Oxygen 4.00 03/06/20 11:17: Glucometer 91 03/06/20 15:51: Glucometer 118H 03/06/20 20:16: Glucometer 99 03/07/20 04:25: White Blood Count 6.2, Red Blood Count 4.24, Hemoglobin 10.6L, Hematocrit 36, Mean Corpuscular Volume 86, Mean Corpuscular Hemoglobin 25, Mean Corpuscular Hemoglobin Concent 29L, Red Cell Distribution Width 19.9H, Platelet Count 356, Mean Platelet Volume 10.0, Immature Granulocyte % (Auto) 1, Neutrophils (%) (Auto) 62, Lymphocytes (%) (Auto) 24, Monocytes (%) (Auto) 10, Eosinophils (%) (Auto) 3, Basophils (%) (Auto) 1, Neutrophils # (Auto) 3.8, Lymphocytes # (Auto) 1.5, Monocytes # (Auto) 0.6, Eosinophils # (Auto) 0.2, Basophils # (Auto) 0.0, Immature Granulocyte # (Auto) 0.1, Sodium Level 143, Potassium Level 3.2L, Chloride Level 97L, Carbon Dioxide Level 33H, Anion Gap 13, Blood Urea Nitrogen 10, Creatinine 0.66, Estimat Glomerular Filtration Rate > 60, BUN/Creatinine Ratio 15, Glucose Level 95, Calcium Level 8.3L, Phosphorus Level 1.8L, Magnesium Level 1.6 03/07/20 06:02: Glucometer 100 03/07/20 11:05: Glucometer 83 03/07/20 16:19: Glucometer 95 03/07/20 20:12: Glucometer 94 03/08/20 06:13: White Blood Count 5.4, Red Blood Count 4.33, Hemoglobin 10.7L, Hematocrit 38, [place] Corpuscular Volume 89, Mean Corpuscular Hemoglobin 25, Mean Corpuscular Hemoglobin Concent 28L, Red Cell Distribution Width 20.2H, Platelet Count 228, Mean Platelet Volume 10.1, Immature Granulocyte % (Auto) 1, Neutrophils (%) (Auto) 61, Lymphocytes (%) (Auto) 22, Monocytes (%) (Auto) 11, Eosinophils (%) (Auto) 3, Basophils (%) (Auto) 1, Neutrophils # (Auto) 3.3, Lymphocytes # (Auto) 1.2, Monocytes # (Auto) 0.6, Eosinophils # (Auto) 0.2, Basophils # (Auto) 0.1, Immature Granulocyte # (Auto) 0.1, Sodium Level 142, Potassium Level 3.5L, Chloride Level 99, Carbon Dioxide Level 30, Anion Gap 13, Blood Urea Nitrogen 6L , Creatinine 0.63, Estimat Glomerular Filtration Rate > 60, BUN/Creatinine Ratio 10, Glucose Level 89, Calcium Level 8.3L, Phosphorus Level 4.4, Magnesium Level 1.5L 03/08/20 11:56: Glucometer 82 03/08/20 16:40: Glucometer 101 03/08/20 20:43: Glucometer 110 03/09/20 04:10: White Blood Count 6.5, Red Blood Count 4.33, Hemoglobin 11.0L, Hematocrit 38, Mean Corpuscular Volume 87, Mean Corpuscular Hemoglobin 25, Mean Corpuscular Hemoglobin Concent 29L, Red Cell Distribution Width 20.2H, Platelet Count 303, Mean Platelet Volume 10.0, Immature Granulocyte % (Auto) 1, Neutrophils (%) (Auto) 57, Lymphocytes (%) (Auto) 26, Monocytes (%) (Auto) 11, Eosinophils (%) (Auto) 5, Basophils (%) (Auto) 1, Neutrophils # (Auto) 3.7, Lymphocytes # (Auto) 1.7, Monocytes # (Auto) 0.7, Eosinophils # (Auto) 0.3, Basophils # (Auto) 0.0, Immature Granulocyte # (Auto) 0.1, Sodium Level 141, Potassium Level 3.6, Chloride Level 98, Carbon Dioxide Level 29, Anion Gap 14, Blood Urea Nitrogen 8, Creatinine 0.70, Estimat Glomerular Filtration Rate > 60, BUN/Creatinine Ratio 11, Glucose Level 102, Calcium Level 8.6, Phosphorus Level 4.3, Magnesium Level 1.4L 03/09/20 11:11: Glucometer 138H Microbiology 02/17/20 Blood Culture - Final, Complete No growth 02/17/20 Influenza Types A,B Antigen ([facility]ANG) - Final, Complete Pending Labs Microbiology Date/Time Source Procedure Growth Status 02/17/20 10:49 Peripheral Lt Hand Blood Culture - Final No growth Complete 02/17/20 10:25 Port Internal Jugular Blood Culture - Final No growth Complete 02/17/20 04:55 Nasopharynx Influenza Types A,B Antigen (THANG) - Final Complete 02/17/20 03:16 Sputum Induced Gram Stain - Final Complete 02/17/20 03:16 Sputum Culture - Final Probable Strep Pneumoniae Probable Pseudomonas Complete 02/16/20 23:10 Nasal MRSA Screen - Final MRSA not isolated Complete 02/16/20 20:30 Peripheral Not Otherwise Specified Blood Culture - Final No growth Complete Laboratory Tests 02/16/20 20:09: Urine Color YELLOW, Urine Clarity CLEAR, Urine pH 6.0, Urine Specific [place] 1.025, Urine Protein 1+, Urine Glucose (UA) NEGATIVE, Urine Ketones NEGATIVE, Urine Nitrite NEGATIVE, Urine Bilirubin NEGATIVE, Urine Urobilinogen 4.0, Urine Leukocyte Esterase TRACE, Urine RBC (Auto) NEGATIVE, Urine RBC NONE, Urine WBC 0-2, Urine Squamous Epithelial Cells 0-2, Urine Crystals NONE, Urine Bacteria TRACE, Urine Casts PRESENT, Urine Hyaline Casts 2-5, Urine Mucus SMALL, Urine Culture Indicated NO, Urine Opiates Screen NEGATIVE, Urine Oxycodone Screen NEGATIVE, Urine Methadone Screen NEGATIVE, Urine Propoxyphene Screen NEGATIVE, Urine Barbiturates Screen NEGATIVE, Ur Tricyclic Antidepressants Screen NEGATIVE, Urine Phencyclidine Screen NEGATIVE, Urine Amphetamines Screen NEGATIVE, Urine Methamphetamines Screen NEGATIVE, Urine Benzodiazepines Screen NEGATIVE, Urine Cocaine Screen NEGATIVE, Urine Cannabinoids Screen NEGATIVE 02/16/20 20:30: White Blood Count 9.3, Red Blood Count 5.37, Hemoglobin 13.6, Hematocrit 47, Mean Corpuscular Volume 87, Mean Corpuscular Hemoglobin 25, Mean Corpuscular He moglobin Concent 29, Red Cell Distribution Width 17.8, Platelet Count 220, Mean Platelet Volume 10.3, Immature Granulocyte % (Auto) 0, Neutrophils (%) (Auto) 75, Lymphocytes (%) (Auto) 13, Monocytes (%) (Auto) 11, Eosinophils (%) (Auto) 0, Basophils (%) (Auto) 0, Neutrophils # (Auto) 7.0, Lymphocytes # (Auto) 1.3, Monocytes # (Auto) 1.0, Eosinophils # (Auto) 0.0, Basophils # (Auto) 0.0, Immature Granulocyte # (Auto) 0.0, Prothrombin Time 15.1, INR Comment 1.2, Blood Gas Puncture Site UNK, Blood Gas Patient Temperature 37, Arterial Blood pH 7.31, Arterial Blood Partial Pressure CO2 82, Arterial Blood Partial Pressure O2 66, Arterial Blood HCO3 40, Arterial Blood Total CO2 42.8, Arterial Blood Oxygen Saturation 89, Arterial Blood Base Excess 13.6, [place] Test UNK, Blood Gas Ventilator Setting NO, Blood Gas Inspired Oxygen UNK, Sodium Level 138, Potassium Level 4.4, Chloride Level 90, Carbon Dioxide Level 35, Anion Gap 13, Blood Urea Nitrogen 83, Creatinine 1.86, Estimat Glomerular Filtration Rate 28, BUN/Creatinine Ratio 45, Glucose Level 125, Calcium Level 9.0, Corrected Calcium 9.3, Total Bilirubin 1.4, Aspartate Amino Transf (AST/SGOT) 42, Alanine Aminotransferase (ALT/SGPT) 46, Alkaline Phosphatase 82, Ammonia 34, Troponin I 0.045, B-Type Natriuretic Peptide 1302.3, Total Protein 6.6, Albumin 3.6, Procalcitonin 0.12 02/16/20 20:54: Coronavirus 2019 ([facility]) Negative 02/16/20 21:30: Lab Scanned Report Referred Lab Report 02/17/20 01:40: Blood Gas Puncture Site RT RAD, Blood Gas Patient Temperature 35, Arterial Blood pH 7.59, Arterial Blood Partial Pressure CO2 35, Arterial Blood Partial Pressure O2 40, Arterial Blood HCO3 34, Arterial Blood Total CO2 35.3, Arterial Blood Oxygen Saturation 83, Arterial Blood Base Excess 10.9, [place] Test POS, Blood Gas Ventilator Setting YES, Blood Gas Inspired Oxygen 100% 02/17/20 02:47: White Blood Count 9.4, Red Blood Count 5.44, Hemoglobin 13.8, Hematocrit 47, Mean Corpuscular Volume 86, Mean Corpuscular Hemoglobin 25, Mean Corpuscular Hemoglobin Concent 30, Red Cell Distribution Width 17.5, Platelet Count 209, Mean Platelet Volume 10.3, Immature Granulocyte % (Auto) 1, Neutrophils (%) (Auto) 79, Lymphocytes (%) (Auto) 13, Monocytes (%) (Auto) 7, Eosinophils (%) (Auto) 0, Basophils (%) (Auto) 0, Neutrophils # (Auto) 7.4, Lymphocytes # (Auto) 1.3, Monocytes # (Auto) 0.6, Eosinophils # (Auto) 0.0, Basophils # (Auto) 0.0, Immature Granulocyte # (Auto) 0.1, D-Dimer 2.73, Sodium Level 137, Potassium Lev el 4.0, Chloride Level 89, Carbon Dioxide Level 32, Anion Gap 16, Blood Urea Nitrogen 83, Creatinine 1.64, Estimat Glomerular Filtration Rate 33, BUN/Creatinine Ratio 51, Glucose Level 138, Calcium Level 8.8, Phosphorus Level 3.6, Magnesium Level 2.2, Triglycerides Level 124 02/17/20 04:55: Coronavirus (COVID-19)(PCR) Negative 02/17/20 07:45: Blood Gas Puncture Site RIGHT RAD, Blood Gas Patient Temperature 37.0, Arterial Blood pH 7.54, Arterial Blood Partial Pressure CO2 43, Arterial Blood Partial Pressure O2 90, Arterial Blood HCO3 37, Arterial Blood Total CO2 38.7, Arterial Blood Oxygen Saturation 97, Arterial Blood Base Excess 13.5, [place] Test YES-POS, Blood Gas Ventilator Setting YES, Blood Gas Inspired Oxygen 100% 02/17/20 11:50: Glucometer 143 02/17/20 17:22: Glucometer 163 02/17/20 23:10: Glucometer 147 02/18/20 03:15: White Blood Count 14.9, Red Blood Count 4.99, Hemoglobin 12.6, Hematocrit 41, Mean Corpuscular Volume 82, Mean Corpuscular Hemoglobin 25, Mean Corpuscular Hemoglobin Concent 31, Red Cell Distribution Width 17.4, Platelet Count 211, Mean Platelet Volume 10.1, Immature Granulocyte % (Auto) 1, Neutrophils (%) (Auto) 88, Lymphocytes (%) (Auto) 5, Monocytes (%) (Auto) 6, Eosinophils (%) (Auto) 0, Basophils (%) (Auto) 0, Neutrophils # (Auto) 13.1, Lymphocytes # (Auto) 0.8, Monocytes # (Auto) 1.0, Eosinophils # (Auto) 0.0, Basophils # (Auto) 0.0, Immature Granulocyte # (Auto) 0.1, Neutrophils % (Manual) 88, Lymphocytes % (Manual) 2, Monocytes % (Manual) 4, Band Neutrophils 6, Nucleated Red Blood Cells 1, Blood Morphology Comment NORMAL, Blood Gas Puncture Site LEFT RADIAL, Blood Gas Patient Temperature 36.3, Arterial Blood pH 7.56, Arterial Blood Partial Pressure CO2 40, Arterial Blood Partial Pressure O2 73, Arterial Blood HCO3 36, Arterial Blood Total CO2 37.2, Arterial Blood Oxygen Saturation 95, Arterial Blood Base Excess 12.4, [place] Test YES-POS, Blood Gas Ventilator Setting YES, Blood Gas Inspired Oxygen 40%, Sodium Level 139, Potassium Level 3.9, Chloride Level 92, Carbon Dioxide Level 33, Anion Gap 14, Blood Urea Nitrogen 72, Creatinine 1.72, Estimat Glomerular Filtration Rate 31, BUN/Creatinine Ratio 42, Glucose Level 137, Calcium Level 8.2, Phosphorus Level 4.1, Magnesium Level 2.2, Triglycerides Level 143 02/18/20 06:47: Blood Gas Puncture Site LEFT RADIAL, Blood Gas Patient Temperature 36.4, Arterial Blood pH 7.55, Arterial Blood Partial Pressure CO2 41, Arterial Blood Partial Pressure O2 90, Arterial Blood HCO3 35, Arterial Blood Total CO2 36.7, Arterial Blood Oxygen Saturation 98, Arterial Blood Base Excess 11.8, [place] Test YES-POS, Blood Gas Ventilator Setting YES, Blood Gas Inspired Oxygen 40% 02/18/20 10:40: Troponin I 0.261 02/18/20 11:36: Glucometer 109 02/18/20 17:13: Glucometer 106 02/18/20 23:25: Glucometer 106 02/19/20 03:40: White Blood Count 11.9, Red Blood Count 4.91, Hemoglobin 12.3, Hematocrit 41, Mean Corpuscular Volume 83, Mean Corpuscular Hemoglobin 25, Mean Corpuscular Hemoglobin Concent 30, Red Cell Distribution Width 17.5, Platelet Count 211, Mean Platelet Volume 9.9, Immature Granulocyte % (Auto) 0, Neutrophils (%) (Auto) 83, Lymphocytes (%) (Auto) 10, Monocytes (%) (Auto) 7, Eosinophils (%) ( Auto) 0, Basophils (%) (Auto) 0, Neutrophils # (Auto) 9.8, Lymphocytes # (Auto) 1.2, Monocytes # (Auto) 0.8, Eosinophils # (Auto) 0.0, Basophils # (Auto) 0.0, Immature Granulocyte # (Auto) 0.0, Sodium Level 141, Potassium Level 3.8, Chloride Level 95, Carbon Dioxide Level 31, Anion Gap 15, Blood Urea Nitrogen 58, Creatinine 1.52, Estimat Glomerular Filtration Rate 36, BUN/Creatinine Ratio 38, Glucose Level 90, Calcium Level 8.1, Phosphorus Level 5.0, Magnesium Level 2.1 02/19/20 04:00: Blood Gas Puncture Site RIGHT RADIAL, Blood Gas Patient Temperature 35.9, Arterial Blood pH 7.53, Arterial Blood Partial Pressure CO2 42, Arterial Blood Partial Pressure O2 75, Arterial Blood HCO3 36, Arterial Blood Total CO2 37.2, Arterial Blood Oxygen Saturation 95, Arterial Blood Base Excess 11.9, [place] Test YES-POS, Blood Gas Ventilator Setting YES, Blood Gas Inspired Oxygen 35% 02/19/20 09:05: Vancomycin Level Trough 23.7 02/19/20 11:05: Glucometer 89 02/19/20 17:46: Glucometer 91 02/19/20 17:55: Vancomycin Level Trough 18.9 02/20/20 00:45: Glucometer 99 02/20/20 02:58: Blood Gas Puncture Site RIGHT RADIAL, Blood Gas Patient Temperature 37.0, Arterial Blood pH 7.48, Arterial Blood Partial Pressure CO2 49, Arterial Blood Partial Pressure O2 93, Arterial Blood HCO3 37, Arterial Blood Total CO2 38.0, Arterial Blood Oxygen Saturation 97, Arterial Blood Base Excess 12.2, [place] Test ART LINE, Blood Gas Ventilator Setting YES, Blood Gas Inspired Oxygen 35% 02/20/20 03:01: White Blood Count 8.9, Red Blood Count 4.80, Hemoglobin 12.1, Hematocrit 40, Mean Corpuscular Volume 84, Mean Corpuscular Hemoglobin 25, Mean Corpuscular Hemoglobin Concent 30, Red Cell Distribution Width 17.7, Platelet Count 188, Mean Platelet Volume 10.0, Immature Granulocyte % (Auto) 0, Neutrophils (%) (Auto) 77, Lymphocytes (%) (Auto) 14, Monocytes (%) (Auto) 8, Eosinophils (%) (Auto) 0, Basophils (%) (Auto) 0, Neutrophils # (Auto) 6.8, Lymphocytes # (Auto) 1.3, Monocytes # (Auto) 0.7, Eosinophils # (Auto) 0.0, Basophils # (Auto) 0.0, Immature Granulocyte # (Auto) 0.0, Sodium Level 142, Potassium Level 3.2, Chloride Level 95, Carbon Dioxide Level 34, Anion Gap 13, Blood Urea Nitrogen 43, Creatinine 1.42, Estimat Glomerular Filtration Rate 38, BUN/Creatinine Ratio 30, Glucose Level 85, Calcium Level 8.2, Phosphorus Level 3.9, Magnesium Level 1.8, Triglycerides Level 124 02/20/20 09:35: Blood Gas Puncture Site RIGHT RADIAL, Blood Gas Patient Temperature 36.3, Arterial Blood pH 7.44, Arterial Blood Partial Pressure CO2 56, Arterial Blood Partial Pressure O2 88, Arterial Blood HCO3 37, Arterial Blood Total CO2 39.1, Arterial Blood Oxygen Saturation 97, Arterial Blood Base Excess 12.4, [place] Test POS, Blood Gas Ventilator Setting YES, Blood Gas Inspired Oxygen 45% 02/20/20 10:47: Glucometer 98 02/20/20 17:55: Glucometer 110 02/20/20 23:43: Glucometer 94 02/21/20 02:52: White Blood Count 8.9, Red Blood Count 4.75, Hemoglobin 11.8, Hematocrit 41, Mean Corpuscular Volume 86, Mean Corpuscular Hemoglobin 25, Mean Corpuscular Hemoglobin Concent 29, Red Cell Distribution Width 17.9, Platelet Count 205, Mean Platelet Volume 10.0, Immature Granulocyte % (Auto) 0, Neutrophils (%) (Auto) 73, Lymphocytes (%) (Auto) 16, Monocytes (%) (Auto) 10, Eosinophils (%) (Auto) 1, Basophils (%) (Auto) 0, Neutrophils # (Auto) 6.5, Lymphocytes # (Auto) 1.4, Monocytes # (Auto) 0.8, Eosinophils # (Auto) 0.1, Basophils # (Auto) 0.0, Immature Granulocyte # (Auto) 0.0, Sodium Level 142, Potassium Level 3.5, Chloride Level 95, Carbon Dioxide Level 35, Anion Gap 12, Blood Urea Nitrogen 30, Creatinine 1.28, Estimat Glomerular Filtration Rate 43, BUN/Creatinine Ratio 23, Glucose Level 94, Calcium Level 8.2, Phosphorus Level 3.3, Magnesium Level 1.6, Triglycerides Level 135 02/21/20 03:01: Blood Gas Puncture Site RIGHT RADIAL, Blood Gas Patient Temperature 37.3, Arterial Blood pH 7.46, Arterial Blood Partial Pressure CO2 52, Arterial Blood Partial Pressure O2 96, Arterial Blood HCO3 37, Arterial Blood Total CO2 38.1, Arterial Blood Oxygen Saturation 98, Arterial Blood Base Excess 12.1, [place] Test YES-POS, Blood Gas Ventilator Setting YES, Blood Gas Inspired Oxygen 45% 02/21/20 08:50: Blood Gas Puncture Site RT RAD, Blood Gas Patient Temperature 99.1, Arterial Blood pH 7.35, Arterial Blood Partial Pressure CO2 71, Arterial Blood Partial Pressure O2 100, Arterial Blood HCO3 38, Arterial Blood Total CO2 40.1, Arterial Blood Oxygen Saturation 97, Arterial Blood Base Excess 12.0, [place] Test NA, Blood Gas Ventilator Setting YES, Blood Gas Inspired Oxygen 45% 02/21/20 11:35: Blood Gas Puncture Site NA, Blood Gas Patient Temperature 99.1, Arterial Blood pH 7.41, Arterial Blood Partial Pressure CO2 59, Arterial Blood Partial Pressure O2 84, Arterial Blood HCO3 36, Arterial Blood Total CO2 37.8, Arterial Blood Oxygen Saturation 96, Arterial Blood Base Excess 10.9, [place] Test NA, Blood Gas Ventilator Setting YES, Blood Gas Inspired Oxygen 45% 02/21/20 11:41: Glucometer 100 02/21/20 17:31: Glucometer 74 02/21/20 23:17: Glucometer 82 02/22/20 02:25: Blood Gas Puncture Site RIGHT RADIAL, Blood Gas Patient Temperature 36.9, Arterial Blood pH 7.54, Arterial Blood Partial Pressure CO2 40, Arterial Blood Partial Pressure O2 67, Arterial Blood HCO3 34, Arterial Blood Total CO2 35.2, Arterial Blood Oxygen Saturation 93, Arterial Blood Base Excess 10.5, [place] Test YES-POS, Blood Gas Ventilator Setting YES, Blood Gas Inspired Oxygen 60% 02/22/20 02:30: White Blood Count 10.5, Red Blood Count 4.70, Hemoglobin 11.6, Hematocrit 40, Mean Corpuscular Volume 84, Mean Corpuscular Hemoglobin 25, Mean Corpuscular Hemoglobin Concent 29, Red Cell Distribution Width 18.1, Platelet Count 240, Mean Platelet Volume 10.0, Immature Granulocyte % (Auto) 1, Neutrophils (%) (Auto) 74, Lymphocytes (%) (Auto) 14, Monocytes (%) (Auto) 10, Eosinophils (%) (Auto) 1, Basophils (%) (Auto) 0, Neutrophils # (Auto) 7.9, Lymphocytes # (Auto) 1.5, Monocytes # (Auto) 1.0, Eosinophils # (Auto) 0.1, Basophils # (Auto) 0.0, Immature Granulocyte # (Auto) 0.1, Sodium Level 142, Potassium Level 3.1, Chloride Level 96, Carbon Dioxide Level 32, Anion Gap 14, Blood Urea Nitrogen 22, Creatinine 1.13, Estimat Glomerular Filtration Rate 50, BUN/Creatinine Ratio 19, Glucose Level 73, Calcium Level 8.3, Phosphorus Level 2.4, Magnesium Level 1.7, Triglycerides Level 140, Procalcitonin 0.20 02/22/20 17:30: Glucometer 101 02/22/20 23:19: Glucometer 121 02/23/20 01:56: White Blood Count 9.7, Red Blood Count 4.96, Hemoglobin 12.3, Hematocrit 42, Mean Corpuscular Volume 85, Mean Corpuscular Hemoglobin 25, Mean Corpuscular Hemoglobin Concent 29, Red Cell Distribution Width 18.6, Platelet Count 270, Mean Platelet Volume 9.6, Immature Granulocyte % (Auto) 1, Neutrophils (%) (Auto) 75, Lymphocytes (%) (Auto) 11, Monocytes (%) (Auto) 11, Eosinophils (%) (Auto) 3, Basophils (%) (Auto) 0, Neutrophils # (Auto) 7.2, Lymphocytes # (Auto) 1.0, Monocytes # (Auto) 1.0, Eosinophils # (Auto) 0.3, Basophils # (Auto) 0.0, Immature Granulocyte # (Auto) 0.1, Blood Gas Puncture Site LEFT RADIAL, Blood Gas Patient Temperature 36.6, Arterial Blood pH 7.52, Arterial Blood Partial Pressure CO2 40, Arterial Blood Partial Pressure O2 74, Arterial Blood HCO3 33, Arterial Blood Total CO2 33.9, Arterial Blood Oxygen Saturation 95, Arterial Blood Base Excess 9.1, [place] Test ART LINE, Blood Gas Ventilator Setting YES, Blood Gas Inspired Oxygen 60%, Sodium Level 141, Potassium Level 3.5, Chloride Level 97, Carbon Dioxide Level 31, Anion Gap 13, Blood Urea Nitrogen 20, Creatinine 1.11, Estimat Glomerular Filtration Rate 51, BUN/Creatinine Ratio 18, Glucose Level 122, Calcium Level 8.4, Phosphorus Level 3.7, Magnesium Level 1.9, B-Type Natriuretic Peptide 703.9, Triglycerides Level 182 02/23/20 11:40: Glucometer 125 02/23/20 17:03: Glucometer 104 02/23/20 23:04: Glucometer 98 02/24/20 02:01: White Blood Count 8.8, Red Blood Count 4.92, Hemoglobin 12.0, Hematocrit 42, Mean Corpuscular Volume 85, Mean Corpuscular Hemoglobin 24, Mean Corpuscular Hemoglobin Concent 29, Red Cell Distribution Width 18.6, Platelet Count 298, Mean Platelet Volume 9.9, Immature Granulocyte % (Auto) 1, Neutrophils (%) (Auto) 78, Lymphocytes (%) (Auto) 10, Monocytes (%) (Auto) 11, Eosinophils (%) (Auto) 1, Basophils (%) (Auto) 0, Neutrophils # (Auto) 6.9, Lymphocytes # (Auto) 0.9, Monocytes # (Auto) 0.9, Eosinophils # (Auto) 0.1, Basophils # (Auto) 0.0, Immature Granulocyte # (Auto) 0.0, Sodium Level 141, Potassium Level 4.0, Chloride Level 98, Carbon Dioxide Level 28, Anion Gap 15, Blood Urea Nitrogen 19, Creatinine 1.05, Estimat Glomerular Filtration Rate 54, BUN/Creatinine Ratio 18, Glucose Level 111, Calcium Level 8.7, Phosphorus Level 4.9, Magnesium Level 1.9, Triglycerides Level 192 02/24/20 04:01: Blood Gas Puncture Site LFT RAD, Blood Gas Patient Temperature 36.5, Arterial Blood pH 7.46, Arterial Blood Partial Pressure CO2 45, Arterial Blood Partial Pressure O2 70, Arterial Blood HCO3 32, Arterial Blood Total CO2 33.0, Arterial Blood Oxygen Saturation 94, Arterial Blood Base Excess 7.4, [place] Test POS, Blood Gas Ventilator Setting YES, Blood Gas Inspired Oxygen 36% 02/24/20 11:23: Glucometer 108 02/24/20 18:21: Glucometer 95 02/24/20 23:26: Glucometer 115 02/25/20 02:22: White Blood Count 7.5, Red Blood Count 4.62, Hemoglobin 11.4, Hematocrit 39, Mean Corpuscular Volume 85, Mean Corpuscular Hemoglobin 25, Mean Corpuscular Hemoglobin Concent 29, Red Cell Distribution Width 18.8, Platelet Count 289, Mean Platelet Volume 10.0, Immature Granulocyte % (Auto) 0, Neutrophils (%) (Auto) 71, Lymphocytes (%) (Auto) 17, Monocytes (%) (Auto) 11, Eosinophils (%) (Auto) 1, Basophils (%) (Auto) 0, Neutrophils # (Auto) 5.3, Lymphocytes # (Auto) 1.3, Monocytes # (Auto) 0.8, Eosinophils # (Auto) 0.1, Basophils # (Auto) 0.0, Immature Granulocyte # (Auto) 0.0, Sodium Level 140, Potassium Level 3.4, Chloride Level 97, Carbon Dioxide Level 30, Anion Gap 13, Blood Urea Nitrogen 16, Creatinine 0.87, Estimat Glomerular Filtration Rate > 60, BUN/Creatinine Ratio 18, Glucose Level 102, Calcium Level 8.6, Phosphorus Level 4.6, Magnesium Level 1.9 02/25/20 02:24: Blood Gas Puncture Site RIGHT RADIAL, Blood Gas Patient Temperature 36.6, Arterial Blood pH 7.45, Arterial Blood Partial Pressure CO2 47, Arterial Blood Partial Pressure O2 70, Arterial Blood HCO3 32, Arterial Blood Total CO2 33.9, Arterial Blood Oxygen Saturation 91, Arterial Blood Base Excess 8.1, [place] Test POSITIVE, Blood Gas Ventilator Setting YES, Blood Gas Inspired Oxygen 30 02/25/20 08:14: Blood Gas Puncture Site LT RAD, Blood Gas Patient Temperature 36.3, Arterial Blood pH 7.42, Arterial Blood Partial Pressure CO2 50, Arterial Blood Partial Pr essure O2 67, Arterial Blood HCO3 32, Arterial Blood Total CO2 33.7, Arterial Blood Oxygen Saturation 88, Arterial Blood Base Excess 7.5, [place] Test YES-POS, Blood Gas Ventilator Setting YES, Blood Gas Inspired Oxygen 30% 02/25/20 11:35: Glucometer 83 02/25/20 12:15: Blood Gas Puncture Site LT RAD, Blood Gas Patient Temperature 36.8, Arterial Blood pH 7.38, Arterial Blood Partial Pressure CO2 54, Arterial Blood Partial Pressure O2 65, Arterial Blood HCO3 31, Arterial Blood Total CO2 33.1, Arterial Blood Oxygen Saturation 84, Arterial Blood Base Excess 6.4, [place] Test YES-POS, Blood Gas Ventilator Setting YES, Blood Gas Inspired Oxygen 30% 02/25/20 17:57: Glucometer 116 02/25/20 23:25: Glucometer 76 02/26/20 03:40: White Blood Count 9.9, Red Blood Count 4.42, Hemoglobin 10.9, Hematocrit 38, Mean Corpuscular Volume 86, Mean Corpuscular Hemoglobin 25, Mean Corpuscular Hemoglobin Concent 29, Red Cell Distribution Width 18.9, Platelet Count 265, Mean Platelet Volume 9.4, Immature Granulocyte % (Auto) 0, Neutrophils (%) (Auto) 77, Lymphocytes (%) (Auto) 13, Monocytes (%) (Auto) 9, Eosinophils (%) (Auto) 0, Basophils (%) (Auto) 0, Neutrophils # (Auto) 7.6, Lymphocytes # (Auto) 1.3, Monocytes # (Auto) 0.9, Eosinophils # (Auto) 0.0, Basophils # (Auto) 0.0, Immature Granulocyte # (Auto) 0.0, Sodium Level 141, Potassium Level 3.7, Chloride Level 99, Carbon Dioxide Level 29, Anion Gap 13, Blood Urea Nitrogen 16, Creatinine 0.89, Estimat Glomerular Filtration Rate > 60, BUN/Creatinine Ratio 18, Glucose Level 107, Calcium Level 8.5, Phosphorus Level 4.5, Magnesium Level 1.7, Triglycerides Level 188 02/26/20 03:58: Blood Gas Puncture Site RIGHT RADIAL, Blood Gas Patient Temperature 36, Arterial Blood pH 7.45, Arterial Blood Partial Pressure CO2 45, Arterial Blood Partial Pressure O2 68, Arterial Blood HCO3 31, Arterial Blood Total CO2 32.8, Arterial Blood Oxygen Saturation 92, Arterial Blood Base Excess 7.0, [place] Test POSITIVE, Blood Gas Ventilator Setting YES, Blood Gas Inspired Oxygen 30 02/26/20 12:34: Glucometer 100 02/26/20 13:14: Blood Gas Puncture Site RIGHT RADIAL, Blood Gas Patient Temperature 37.1, Arterial Blood pH 7.40, Arterial Blood Partial Pressure CO2 54, Arterial Blood Partial Pressure O2 66, Arterial Blood HCO3 33, Arterial Blood Total CO2 34.6, Arterial Blood Oxygen Saturation 87, Arterial Blood Base Excess 8.1, [place] Test POSITIVE, Blood Gas Ventilator Setting YES, Blood Gas Inspired Oxygen 30% 02/26/20 17:11: Glucometer 135 02/26/20 23:25: Glucometer 122 02/27/20 03:03: White Blood Count 10.8, Red Blood Count 4.32, Hemoglobin 10.8, Hematocrit 37, Mean Corpuscular Volume 85, Mean Corpuscular Hemoglobin 25, Mean Corpuscular Hemoglobin Concent 30, Red Cell Distribution Width 18.8, Platelet Count 293, Mean Platelet Volume 9.9, Immature Granulocyte % (Auto) 0, Neutrophils (%) (Auto) 80, Lymphocytes (%) (Auto) 11, Monocytes (%) (Auto) 7, Eosinophils (%) (Auto) 1, Basophils (%) (Auto) 0, Neutrophils # (Auto) 8.7, Lymphocytes # (Auto) 1.2, Monocytes # (Auto) 0.8, Eosinophils # (Auto) 0.1, Basophils # (Auto) 0.0, Immature Granulocyte # (Auto) 0.0, Sodium Level 141, Potassium Level 3.2, Chloride Level 98, Carbon Dioxide Level 30, Anion Gap 13, Blood Urea Nitrogen 13, Creatinine 0.85, Estimat Glomerular Filtration Rate > 60, BUN/Creatinine Ratio 15, Glucose Level 122, Calcium Level 8.5, Phosphorus Level 4.1, Magnesium Level 1.6 02/27/20 03:06: Blood Gas Puncture Site RIGHT RADIAL, Blood Gas Patient Temperature 36.7, Arterial Blood pH 7.47, Arterial Blood Partial Pressure CO2 46, Arterial Blood Partial Pressure O2 64, Arterial Blood HCO3 33, Arterial Blood Total CO2 34.2, Arterial Blood Oxygen Saturation 91, Arterial Blood Base Excess 8.6, [place] Test POSITIVE, Blood Gas Ventilator Setting YES, Blood Gas Inspired Oxygen 30 02/27/20 05:11: Glucometer 130 02/27/20 11:03: Glucometer 113 02/27/20 17:38: Glucometer 113 02/27/20 23:17: Glucometer 101 02/28/20 01:59: White Blood Count 9.9, Red Blood Count 4.22, Hemoglobin 10.4, Hematocrit 36, M louis Corpuscular Volume 84, Mean Corpuscular Hemoglobin 25, Mean Corpuscular Hemoglobin Concent 29, Red Cell Distribution Width 19.5, Platelet Count 337, Mean Platelet Volume 10.4, Immature Granulocyte % (Auto) 0, Neutrophils (%) (Auto) 77, Lymphocytes (%) (Auto) 15, Monocytes (%) (Auto) 7, Eosinophils (%) (Auto) 1, Basophils (%) (Auto) 0, Neutrophils # (Auto) 7.7, Lymphocytes # (Auto) 1.4, Monocytes # (Auto) 0.7, Eosinophils # (Auto) 0.1, Basophils # (Auto) 0.0, Immature Granulocyte # (Auto) 0.0, Sodium Level 140, Potassium Level 3.3, Chloride Level 97, Carbon Dioxide Level 28, Anion Gap 15, Blood Urea Nitrogen 10, Creatinine 0.84, Estimat Glomerular Filtration Rate > 60, BUN/Creatinine Ratio 12, Glucose Level 108, Calcium Level 8.7, Phosphorus Level 4.0, Magnesium Level 1.9 02/28/20 02:10: Blood Gas Puncture Site RIGHT RADIAL, Blood Gas Patient Temperature 37, Arterial Blood pH 7.45, Arterial Blood Partial Pressure CO2 47, Arterial Blood Partial Pressure O2 64, Arterial Blood HCO3 32, Arterial Blood Total CO2 33.8, Arterial Blood Oxygen Saturation 89, Arterial Blood Base Excess 8.1, [place] Test POSITIVE, Blood Gas Ventilator Setting YES, Blood Gas Inspired Oxygen 30 02/28/20 09:30: Glucometer 106 02/28/20 09:35: Blood Gas Puncture Site LR, Blood Gas Patient Temperature 37.7, Arterial Blood pH 7.35, Arterial Blood Partial Pressure CO2 59, Arterial Blood Partial Pressure O2 74, Arterial Blood HCO3 31, Arterial Blood Total CO2 33.1, Arterial Blood Oxygen Saturation 90, Arterial Blood Base Excess 6.1, [place] Test YES-POS, Blood Gas Ventilator Setting NO, Blood Gas Inspired Oxygen 40% 02/28/20 17:49: Glucometer 96 02/29/20 00:17: Glucometer 89 02/29/20 02:10: White Blood Count 7.6, Red Blood Count 3.98, Hemoglobin 9.8, Hematocrit 34, Mean Corpuscular Volume 86, Mean Corpuscular Hemoglobin 25, Mean Corpuscular Hemoglobin Concent 29, Red Cell Distribution Width 19.9, Platelet Count 369, Mean Platelet Volume 10.5, Immature Granulocyte % (Auto) 1, Neutrophils (%) (Auto) 72, Lymphocytes (%) (Auto) 17, Monocytes (%) (Auto) 9, Eosinophils (%) (Auto) 0, Basophils (%) (Auto) 1, Neutrophils # (Auto) 5.5, Lymphocytes # (Auto) 1.3, Monocytes # (Auto) 0.7, Eosinophils # (Auto) 0.0, Basophils # (Auto) 0.1, Immature Granulocyte # (Auto) 0.0, Sodium Level 143, Potassium Level 3.2, Chloride Level 103, Carbon Dioxide Level 27, Anion Gap 13, Blood Urea Nitrogen 14, Creatinine 0.93, Estimat Glomerular Filtration Rate > 60, BUN/Creatinine Ratio 15, Glucose Level 85, Calcium Level 8.4, Phosphorus Level 3.6, Magnesium Level 2.0 02/29/20 11:38: Glucometer 92 02/29/20 18:11: Glucometer 88 02/29/20 20:45: Glucometer 91 03/01/20 05:20: White Blood Count 6.2, Red Blood Count 3.90, Hemoglobin 9.7, Hematocrit 34, Mean Corpuscular Volume 88, Mean Corpuscular Hemoglobin 25, Mean Corpuscular Hemoglobin Concent 28, Red Cell Distribution Width 19.8, Platelet Count 390, Mean Platelet Volume 10.0, Immature Granulocyte % (Auto) 1, Neutrophils (%) (Auto) 66, Lymphocytes (%) (Auto) 18, Monocytes (%) (Auto) 10, Eosinophils (%) (Auto) 5, Basophils (%) (Auto) 1, Neutrophils # (Auto) 4.1, Lymphocytes # (Auto) 1.1, Monocytes # (Auto) 0.6, Eosinophils # (Auto) 0.3, Basophils # (Auto) 0.1, Immature Granulocyte # (Auto) 0.1, Sodium Level 146, Potassium Level 3.5, Chloride Level 105, Carbon Dioxide Level 28, Anion Gap 13, Blood Urea Nitrogen 15, Creatinine 0.75, Estimat Glomerular Filtration Rate > 60, BUN/Creatinine Ratio 20, Glucose Level 83, Calcium Level 8.5, Phosphorus Level 3.6, Magnesium Level 2.1 03/01/20 05:44: Glucometer 82 03/01/20 10:20: Glucometer 83 03/01/20 15:31: Glucometer 79 03/01/20 20:31: Glucometer 97 03/02/20 03:09: White Blood Count 6.8, Red Blood Count 3.85, Hemoglobin 9.6, Hematocrit 35, Mean Corpuscular Volume 90, Mean Corpuscular Hemoglobin 25, Mean Corpuscular Hemoglobin Concent 28, Red Cell Distribution Width 19.7, Platelet Count 413, Mean Platelet Volume 9.8, Immature Granulocyte % (Auto) 1, Neutrophils (%) (Auto) 66, Lymphocytes (%) (Auto) 18, Monocytes (%) (Auto) 11, Eosinophils (%) ( Auto) 3, Basophils (%) (Auto) 1, Neutrophils # (Auto) 4.5, Lymphocytes # (Auto) 1.2, Monocytes # (Auto) 0.7, Eosinophils # (Auto) 0.2, Basophils # (Auto) 0.1, Immature Granulocyte # (Auto) 0.1, Sodium Level 145, Potassium Level 3.4, Chloride Level 104, Carbon Dioxide Level 28, Anion Gap 13, Blood Urea Nitrogen 14, Creatinine 0.72, Estimat Glomerular Filtration Rate > 60, BUN/Creatinine Ratio 19, Glucose Level 85, Calcium Level 8.6, Phosphorus Level 4.1, Magnesium Level 2.0 03/02/20 10:28: Glucometer 94 03/02/20 15:12: Glucometer 79 03/02/20 20:14: Glucometer 77 03/03/20 06:47: Glucometer 107 03/03/20 08:15: White Blood Count 6.6, Red Blood Count 4.38, Hemoglobin 10.9, Hematocrit 40, Mean Corpuscular Volume 91, Mean Corpuscular Hemoglobin 25, Mean Corpuscular Hemoglobin Concent 27, Red Cell Distribution Width 19.6, Platelet Count 405, Mean Platelet Volume 9.7, Immature Granulocyte % (Auto) 2, Neutrophils (%) (Auto) 69, Lymphocytes (%) (Auto) 15, Monocytes (%) (Auto) 10, Eosinophils (%) (Auto) 4, Basophils (%) (Auto) 1, Neutrophils # (Auto) 4.6, Lymphocytes # (Auto) 1.0, Monocytes # (Auto) 0.7, Eosinophils # (Auto) 0.2, Basophils # (Auto) 0.1, Immature Granulocyte # (Auto) 0.1, Sodium Level 146, Potassium Level 3.6, Chloride Level 102, Carbon Dioxide Level 29, Anion Gap 15, Blood Urea Nitrogen 10, Creatinine 0.72, Estimat Glomerular Filtration Rate > 60, BUN/Creatinine Ratio 14, Glucose Level 95, Calcium Level 8.9, Phosphorus Level 4.6, Magnesium Level 2.0 03/03/20 10:42: Glucometer 123 03/03/20 15:49: Glucometer 94 03/03/20 16:56: Blood Gas Puncture Site LEFT RADIAL, Blood Gas Patient Temperature 36.6, Arterial Blood pH 7.31, Arterial Blood Partial Pressure CO2 70, Arterial Blood Partial Pressure O2 81, Arterial Blood HCO3 35, Arterial Blood Total CO2 36.8, Arterial Blood Oxygen Saturation 95, Arterial Blood Base Excess 8.4, [place] Test POSITIVE, Blood Gas Ventilator Setting NO, Blood Gas Inspired Oxygen 60% 03/03/20 19:15: Blood Gas Puncture Site LEFT RADIAL, Blood Gas Patient Temperature 36.4, Arterial Blood pH 7.35, Arterial Blood Partial Pressure CO2 63, Arterial Blood Partial Pressure O2 67, Arterial Blood HCO3 35, Arterial Blood Total CO2 36.7, Arterial Blood Oxygen Saturation 92, Arterial Blood Base Excess 9.0, [place] Test YES-POS, Blood Gas Ventilator Setting NO, Blood Gas Inspired Oxygen 30% 03/03/20 20:19: Glucometer 93 03/04/20 04:35: White Blood Count 5.8, Red Blood Count 3.90, Hemoglobin 10.0, Hematocrit 34, Mean Corpuscular Volume 87, Mean Corpuscular Hemoglobin 26, Mean Corpuscular Hemoglobin Concent 29, Red Cell Distribution Width 22.6, Platelet Count 482, Mean Platelet Volume 10.4, Immature Granulocyte % (Auto) 1, Neutrophils (%) (Auto) 62, Lymphocytes (%) (Auto) 23, Monocytes (%) (Auto) 10, Eosinophils (%) (Auto) 3, Basophils (%) (Auto) 1, Neutrophils # (Auto) 3.6, Lymphocytes # (Auto) 1.3, Monocytes # (Auto) 0.6, Eosinophils # (Auto) 0.2, Basophils # (Auto) 0.0, Immature Granulocyte # (Auto) 0.1, Sodium Level 142, Potassium Level 3.0, Chloride Level 99, Carbon Dioxide Level 32, Anion Gap 11, Blood Urea Nitrogen 9, Creatinine 0.64, Estimat Glomerular Filtration Rate > 60, BUN/Creatinine Ratio 14, Glucose Level 84, Calcium Level 8.5, Phosphorus Level 3.2, Magnesium Level 1.7 03/04/20 11:10: Glucometer 100 03/04/20 16:23: Glucometer 86 03/04/20 20:56: Glucometer 101 03/05/20 04:15: White Blood Count 5.8, Red Blood Count 4.01, Hemoglobin 10.1, Hematocrit 35, Mean Corpuscular Volume 88, Mean Corpuscular Hemoglobin 25, Mean Corpuscular Hemoglobin Concent 29, Red Cell Distribution Width 19.3, Platelet Count 385, Mean Platelet Volume 9.8, Immature Granulocyte % (Auto) 1, Neutrophils (%) (Auto) 63, Lymphocytes (%) (Auto) 20, Monocytes (%) (Auto) 11, Eosinophils (%) (Auto) 4, Basophils (%) (Auto) 1, Neutrophils # (Auto) 3.7, Lymphocytes # (Auto) 1.2, Monocytes # (Auto) 0.7, Eosinophils # (Auto) 0.2, Basophils # (Auto) 0.0, Immature Granulocyte # (Auto) 0.1, Sodium Level 145, Potassium Level 2.9, Chloride Level 98, Carbon Dioxide Level 34, Anion Gap 13, Blood Urea Nitrogen 8, Creatinine 0.62, Estimat Glomerular Filtration Rate > 60, BUN/Creatinine Ratio 13, Glucose Level 98, Calcium Level 8.7, Phosphorus Level 3.0, Magnesium Level 1.6 03/05/20 10:47: Glucometer 113 03/05/20 15:51: Glucometer 113 03/05/20 20:31: Glucometer 96 03/06/20 05:26: White Blood Count 6.0, Red Blood Count 4.30, Hemoglobin 10.6, Hematocrit 37, Mean Corpuscular Volume 87, Mean Corpuscular Hemoglobin 25, Mean Corpuscular Hemoglobin Concent 28, Red Cell Distribution Width 19.8, Platelet Count 391, Mean Platelet Volume 9.7, Immature Granulocyte % (Auto) 1, Neutrophils (%) (Auto) 64, Lymphocytes (%) (Auto) 21, Monocytes (%) (Auto) 10, Eosinophils (%) (Auto) 4, Basophils (%) (Auto) 1, Neutrophils # (Auto) 3.8, Lymphocytes # (Auto) 1.3, Monocytes # (Auto) 0.6, Eosinophils # (Auto) 0.3, Basophils # (Auto) 0.0, Immature Granulocyte # (Auto) 0.1, Sodium Level 142, Potassium Level 3.2, Chloride Level 96, Carbon Dioxide Level 32, Anion Gap 14, Blood Urea Nitrogen 9, Creatinine 0.68, Estimat Glomerular Filtration Rate > 60, BUN/Creatinine Ratio 13, Glucose Level 93, Calcium Level 8.8, Phosphorus Level 2.8, Magnesium Level 1.8 03/06/20 10:59: Blood Gas Puncture Site RIGHT RADIAL, Blood Gas Patient Temperature 36.4, Arterial Blood pH 7.39, Arterial Blood Partial Pressure CO2 64, Arterial Blood Partial Pressure O2 81, Arterial Blood HCO3 38, Arterial Blood Total CO2 39.8, Arterial Blood Oxygen Saturation 96, Arterial Blood Base Excess 12.2, [place] Test POSITIVE, Blood Gas Ventilator Setting NO, Blood Gas Inspired Oxygen 4.00 03/06/20 11:17: Glucometer 91 03/06/20 15:51: Glucometer 118 03/06/20 20:16: Glucometer 99 03/07/20 04:25: White Blood Count 6.2, Red Blood Count 4.24, Hemoglobin 10.6, Hematocrit 36, Mean Corpuscular Volume 86, Mean Corpuscular Hemoglobin 25, Mean Corpuscular Hemoglobin Concent 29, Red Cell Distribution Width 19.9, Platelet Count 356, Mean Platelet Volume 10.0, Immature Granulocyte % (Auto) 1, Neutrophils (%) (Auto) 62, Lymphocytes (%) (Auto) 24, Monocytes (%) (Auto) 10, Eosinophils (%) (Auto) 3, Basophils (%) (Auto) 1, Neutrophils # (Auto) 3.8, Lymphocytes # (Auto) 1.5, Monocytes # (Auto) 0.6, Eosinophils # (Auto) 0.2, Basophils # (Auto) 0.0, Immature Granulocyte # (Auto) 0.1, Sodium Level 143, Potassium Level 3.2, Chloride Level 97, Carbon Dioxide Level 33, Anion Gap 13, Blood Urea Nitrogen 10, Creatinine 0.66, Estimat Glomerular Filtration Rate > 60, BUN/Creatinine Ratio 15, Glucose Level 95, Calcium Level 8.3, Phosphorus Level 1.8, Magnesium Level 1.6 03/07/20 06:02: Glucometer 100 03/07/20 11:05: Glucometer 83 03/07/20 16:19: Glucometer 95 03/07/20 20:12: Glucometer 94 03/08/20 06:13: White Blood Count 5.4, Red Blood Count 4.33, Hemoglobin 10.7, Hematocrit 38, Mean Corpuscular Volume 89, Mean Corpuscular Hemoglobin 25, Mean Corpuscular Hemoglobin Concent 28, Red Cell Distribution Width 20.2, Platelet Count 228, Mean Platelet Volume 10.1, Immature Granulocyte % (Auto) 1, Neutrophils (%) (Auto) 61, Lymphocytes (%) (Auto) 22, Monocytes (%) (Auto) 11, Eosinophils (%) (Auto) 3, Basophils (%) (Auto) 1, Neutrophils # (Auto) 3.3, Lymphocytes # (Auto) 1.2, Monocytes # (Auto) 0.6, Eosinophils # (Auto) 0.2, Basophils # (Auto) 0.1, Immature Granulocyte # (Auto) 0.1, Sodium Level 142, Potassium Level 3.5, Chloride Level 99, Carbon Dioxide Level 30, Anion Gap 13, Blood Urea Nitrogen 6, Creatinine 0.63, Estimat Glomerular Filtration Rate > 60, BUN/Creatinine Ratio 10, Glucose Level 89, Calcium Level 8.3, Phosphorus Level 4.4, Magnesium Level 1.5 03/08/20 11:56: Glucometer 82 03/08/20 16:40: Glucometer 101 03/08/20 20:43: Glucometer 110 03/09/20 04:10: White Blood Count 6.5, Red Blood Count 4.33, Hemoglobin 11.0, Hematocrit 38, Mean Corpuscular Volume 87, Mean Corpuscular Hemoglobin 25, Mean Corpuscular Hemoglobin Concent 29, Red Cell Distribution Width 20.2, Platelet Count 303, Mean Platelet Volume 10.0, Immature Granulocyte % (Auto) 1, Neutrophils (%) (Auto) 57, Lymphocytes (%) (Auto) 26, Monocytes (%) (Auto) 11, Eosinophils (%) (Auto) 5, Basophils (%) (Auto) 1, Neutrophils # (Auto) 3.7, Lymphocytes # (Auto) 1.7, Monocytes # (Auto) 0.7, Eosinophils # (Auto) 0.3, Basophils # (Auto) 0.0, Immature Granulocyte # (Auto) 0.1, Sodium Level 141, Potassium Level 3.6, Chloride Level 98, Carbon Dioxide Level 29, Anion Gap 14, Blood Urea Nitrogen 8, Creatinine 0.70, Estimat Glomerular Filtration Rate > 60, BUN/Creatinine Ratio 11, Glucose Level 102, Calcium Level 8.6, Phosphorus Level 4.3, Magnesium Level 1.4 03/09/20 11:11: Glucometer 138 Discharge Home Medications: Active Scripts Active Reported Potassium Chloride 20 Meq Tablet.er 40 Meq PO DAILY TAKES 2 (20MEQ) TABS Aspirin 81 Mg Tab.chew 81 Mg PO DAILY Benadryl (Diphenhydramine HCl) 25 Mg Capsule 50 Mg PO DAILY PRN Proair Hfa (Albuterol Sulfate) 1 Puff Puff 2 Puff IH Q4H PRN Atorvastatin Calcium 40 Mg Tablet 40 Mg PO DAILY Furosemide 20 Mg Tablet 40 Mg PO DAILY TAKES 2 (20MG) TABS DAILY Hydrochlorothiazide 25 Mg Tablet 25 Mg PO DAILY Instructions to patient/family Please see electronic discharge instructions given to patient. Clinical Quality Measures DVT/VTE Risk/Contraindication: Risk Factor Score Per Nursin RFS Level Per Nursing on Admit: 4+=Very High DAVID THOMPSON DO Mar 09, 2020 10:28
[2020-03-09] MEDS ORDERED: LOSARTAN 25 MG (COZAAR) TAB PO ONE (10:30)
--- NOTE | 2020-03-09 10:57 | NUR ---
BP FOLLOWING [facility] ADMIN , PATIENT IS ASYMPTOMATIC. DR THOMPSON IS HERE AND ASSESSED PATIENT. AWARE OF BP AND OK TO GO TO REHAB. REPORT CALLED TO ROGER ALICEA. Addendum: 03/09/20 at 1139 by DIANA CRENSHAW RN NEW ORDERS RECEIVED OF JASENC X 1
[2020-03-09] MEDS ORDERED: amLODIPine 5 MG (NORVASC) TAB PO ONE (11:00)
--- NOTE | 2020-03-09 11:18 | NUR ---
PATIENT ON WAY TO REHAB. BP POST [facility] ADMIN 143/85, HR 80. DENIES C/O
--- NOTE | 2020-03-09 11:40 | NUR ---
JAS AGUILAR demonstrates understanding of discharge instructions and accurately returns instructions upon questioning. Copy of Post-Discharge Instructions given to PATIENT. JAS AGUILAR iS not able to manage continuing needs after discharge. Patients belongings returned to PATIENT. Patient discharged from [facility] AND TRANSFERRED TO INPAIENT REHAB.
--- NOTE | 2020-03-09 11:54 | Progress Note ---
DIANA SHEEHAN MED STUDENT 03/09/20 1154: Progress Note Patient is a 55 yo female with history of COPD, CHF with EF of 25%, tobacco dependence, chronic renal insufficiency, osteoarthritis, and hypertension who presented to the ED on 02/15 for shortness of breath, abdominal swelling, leg swelling and altered mental status. She was admitted to [facility] due to respiratory failure and was intubated prior to transfer. COVID test came back negative, though she tested positive for Pseudomonas pneumonia. She completed a 14 day course of Zosyn. She was reintubated on 02/16 due to self-extubation. She was extubated on 02/27 and was switched to BiPAP. She was moved to fourth floor and PT was started to help her mobility and oxygen use. She was moved to nasal cannula throughout the day and BiPAP at night, though the last two nights she has not been given the BiPAP. She did have one fall, but the floor in her room was slippery and could have contributed. She continues to have some debility and oxygen dependence, so she is being transferred to [facility] to aid in improvement of these concerns. JANICE THOMPSON DO 03/10/20 0506: Supervisory-Addendum Brief Verification & Attestation Participated in pt care: history, MDM, physical Personally performed: exam, history, MDM, supervision of care Care discussed with: Medical Student Procedures: n/a Results interpretation: Verified all documentation Verification and Attestation of Medical Student E/M Service A medical student performed and documented this service in my presence. I reviewed and verified all information documented by the medical student and made modifications to such information, when appropriate. I personally performed the physical exam and medical decision making. Janice Thompson, Mar 10, 2020,05:06 DIANA SHEEHAN MED STUDENT Mar 09, 2020 11:54 JANICE THOMPSON DO Mar 10, 2020 05:06
== END 2020-03-09 12:20 | DRG 870 ==
LOC: EDUNIT# 19:28 → EDSTATUS 19:30 → ER 19:30 → RMINBED 21:29 → ICU 21:30 → CSD 02-29 19:21 → 4TH 03-02 23:09
PROVIDERS: ADMIT Family Medicine; ATTEND Family Medicine
PROC: 5A1955Z Respiratory Ventilation, Greater than 96 Consecutive Hours (ICD-10-PCS; principal; 2020-02-16)
PROC: 0BH17EZ Insertion of Endotracheal Airway into Trachea, Via Natural or Artificial Opening (ICD-10-PCS; 2020-02-16)
PROC: 4A023N7 Measurement of Cardiac Sampling and Pressure, Left Heart, Percutaneous Approach (ICD-10-PCS; 2020-02-18)
PROC: B2111ZZ Fluoroscopy of Multiple Coronary Arteries using Low Osmolar Contrast (ICD-10-PCS; 2020-02-18)
PROC: B2151ZZ Fluoroscopy of Left Heart using Low Osmolar Contrast (ICD-10-PCS; 2020-02-18)
PROC: 5A09557 Assistance with Respiratory Ventilation, Greater than 96 Consecutive Hours, Continuous Positive Airway Pressure (ICD-10-PCS; 2020-02-28)
DX: A41.9 Sepsis, unspecified organism (principal); R65.21 Severe sepsis with septic shock; J80 Acute respiratory distress syndrome; I21.A1 Myocardial infarction type 2; I50.21 Acute systolic (congestive) heart failure; J10.08 Influenza due to other identified influenza virus with other specified pneumonia; J15.1 Pneumonia due to Pseudomonas; N17.9 Acute kidney failure, unspecified; I13.0 Hypertensive heart and chronic kidney disease with heart failure and stage 1 through stage 4 chronic kidney disease, or unspecified chronic kidney disease; Z68.41 Body mass index [BMI] 40.0-44.9, adult; L03.116 Cellulitis of left lower limb; L03.115 Cellulitis of right lower limb; I42.9 Cardiomyopathy, unspecified; Z20.828 Contact with and (suspected) exposure to other viral communicable diseases; N18.9 Chronic kidney disease, unspecified; I25.10 Atherosclerotic heart disease of native coronary artery without angina pectoris; F17.210 Nicotine dependence, cigarettes, uncomplicated; E78.5 Hyperlipidemia, unspecified; J44.9 Chronic obstructive pulmonary disease, unspecified; E78.00 Pure hypercholesterolemia, unspecified; K21.9 Gastro-esophageal reflux disease without esophagitis; M54.9 Dorsalgia, unspecified; E66.9 Obesity, unspecified; B37.2 Candidiasis of skin and nail; I87.2 Venous insufficiency (chronic) (peripheral); J30.2 Other seasonal allergic rhinitis; K76.0 Fatty (change of) liver, not elsewhere classified; K44.9 Diaphragmatic hernia without obstruction or gangrene; F41.9 Anxiety disorder, unspecified; F32.9 Major depressive disorder, single episode, unspecified; E83.39 Other disorders of phosphorus metabolism; E87.6 Hypokalemia; E83.42 Hypomagnesemia; Z95.5 Presence of coronary angioplasty implant and graft
CPT/HCPCS: 36415; 36600; 51702; 70450; 71045; 74018; 80048; 80053; 80202; 80306; 81000; 82140; 82805; 82962; 83735; 83880; 84100; 84145; 84478; 84484; 85007; 85025; 85027; 85379; 85610; 87040; 87070; 87081; 87205; 87635; 87804; 93005; 93306; 93458; 93970; 94002; 94003; 94640; 94660; 94760; 94799

== ENCOUNTER 2020-03-09 11:15 | Inpatient (IN) | payer OTHER ==
[~2020-03-09] VITALS: Ht 170 cm; Wt 125.9 kg
[2020-03-09] MEDS: SENNA W/DOCUSATE (SENOKOT S) TABLET PO SCH ×2 (10:00→22:40)
[2020-03-09] MEDS: polyethylene glycoL POWDER 17 GM (MIRALAX) PACK PO SCH ×2 (10:00→22:41)
[2020-03-09] MEDS: DOCUSATE SODIUM 100 MG (COLACE) CAP PO SCH ×2 (10:00→22:41)
[~2020-03-09 11:15] MED LIST changes: +ACETAMINOPHEN 500 MG TAB (TYLENOL) PO PRN; +BISACODYL 10 MG SUPP (DULCOLAX) PR PRN; +CALCIUM CARBONATE 500 MG (TUMS) TAB.CHEW PO PRN; +DOCUSATE SODIUM 100 MG (COLACE) CAP PO PRN; +FLEET ENEMA ADULT 1 EA BTL PR PRN; -KETAMINE HCL 100 MG/ML 5 ML VIAL IJ ONE; +LACTULOSE SYRUP 10GM/15ML (ENULOSE) 30ML UDC PO PRN; +LOPERAMIDE 2 MG (IMODIUM) TABLET PO PRN; +MELATONIN 3 MG TABLET PO PRN; +ONDANSETRON 4 MG (ZOFRAN) ORAL DISSOLVE TAB PO PRN; +POTA-51 PO; -ROCURONIUM 10 MG/ML 5 ML SYRINGE IV ONE; +diphenhydrAMINE 25 MG TAB (BENADRYL) PO PRN; +guaiFENesin/CODEINE (ROBITUSSIN AC) 10ML UDC PO PRN
--- NOTE | 2020-03-09 11:15 | NUR ---
Loren Haimleonardo admitted to room 231-1, with an admitting diagnosis of Critical Illness Myopathy, on 03/09/[address] [place] [address] via wheelchair, accompanied by staff. LOREN AGUILAR introduced to surroundings, call light, bed controls, phone, TV, temperature control, lights, meal times, smoking policy, visitor policy, side rail policy, bathrooms and showers. Patient Rights given to patient in the handbook.LOREN AGUILAR verbalizes understanding that [facility] is not responsible for the loss or damage to any personal effects or valuables that are kept in the patients possession during their hospitalization. The following Patient Care Plans were discussed with the patient: Discharge Planning, Weakness, Falls, Respiratory Failure. LOREN AGUILAR verbalizes understanding of Interdisciplinary Patient Education. Patient and/or family were informed about the Rapid Response Team and its purpose. Patient received Patient Rights Booklet, which includes Privacy Act Statement and Data Collection Information Summary.
[2020-03-09] MEDS ORDERED: RT-ALBUTEROL INHALER HFA (VENTOLIN HFA) 18 GM IH PRN (13:00)
[2020-03-09] MEDS ORDERED: NYSTATIN CREAM (MYCOSTATIN) 30 GM TUBE TP SCH (13:00)
[2020-03-09] MEDS ORDERED: CATHETER FLUSH 10 ML SYR IV PRN (13:00)
[2020-03-09] MEDS ORDERED: ZINC OXIDE 16% OINT (BUTT PASTE) 57 GM TUBE TOP PRN (13:00)
[2020-03-09 13:22] VITALS: BP 141/83
[2020-03-09] MEDS: RT-ALBUTEROL/IPRATROPIUM 3 ML (DUONEB) VIAL INH SCH ×3 (14:23→23:59)
--- NOTE | 2020-03-09 14:30 | Physical Therapy Evaluation ---
PT Evaluation-General Medical Diagnosis Admission Date Mar 09, 2020 at 11:15 Medical Diagnosis: respiratory failure/hypercapnia/PETR Onset Date: Feb 16, 2020 Therapy Diagnosis Therapy Diagnosis: impaired mobility, strength, endurance Height/Weight Height (Feet): 5 Height (Inches): 7.00 Weight (Pounds): 220 Weight (Ounces): 0.0 Precautions Precautions/Isolations: Standard Precautions Referral Physician: Tonia Medical History Pertinent Medical History: COPD, HTN, Smoking Prior Prior Level of Function SCALE: Activities may be completed with or without assistive devices. 4-Ckhwvdluxx-eiblfbj completes the activity by him/herself with no assistance f rom a helper. 5-Set-up or Clean-up Assistance-helper sets up or cleans up; patient completes activity. [place] assists only prior to or following the activity. 4-Supervision or Touching Assistance-helper provides verbal cues and/or touching/steadying and/or contact guard assistance as patient completes activity. Assistance may be provided throughout the activity or intermittently. 3-Partial/Moderate Assistance-helper does LESS THAN HALF the effort. [place] lifts, holds or supports trunk or limbs, but provides less than half the effort. 2-Substantial/Maximal Assistance-helper does MORE THAN HALF the effort. [place] lifts or holds trunk or limbs and provides more than half the effort. 8-Phxwjidum-fcuqvx does ALL the effort. Patient does none of the effort to complete the activity. Or, the assistance of 2 or more helpers is required for the patient to complete the activity. If activity was not attempted, code reason: 7-Patient Refused. 9-Not Applicable-not attempted and the patient did not perform the activity before the current illness, exacerbation or injury. 10-Not Attempted due to Environmental Limitations-(lack of equipment, weather restraints, etc.). 88-Not Attempted due to Medical Conditions or Safety Concerns. Bed Mobility: 6 Transfers (B,C,W/C): 6 Gait: 6 Stairs: 6 Indoor Mobility (Ambulation): Independent Stairs: Independent PT Evaluation-Current Subjective Patient in bed pre tx, agrees to PT, has no complaints of pain Pt/Family Goals to be independent at home Objective Patient Orientation: Person, Place, Situation Attachments: Oxygen ROM/Strength ROM Lower Extremities WNL Strength Lower Extremities 4/5 gross BLE Sensory Vision: Wears Glasses Hearing: Functional Sensation Right Lower Extremit: Intact Sensation Left Lower Extremity: Intact Transfers Roll Left & Right (QC): 3 Sit to Lying (QC): 3 Lying to Sitting/Side of Bed(Q: 3 Sit to Stand (QC): 3 Chair/Ala-pe-Gjmph Xfer(QC): 3 Toilet Transfer (QC): 3 Car Transfer (QC): 3 Patient performs bed mobility with min assist, supine <-> sit min assist, sit <- > stand min assist, transfers min assist, car transfer mod assist. Cues for hand placement and safety. Gait Does the Patient Walk?: Yes Mode of Locomotion: Walk Anticipated Mode of Locomotion: Walk Walk 10 feet (QC): 3 Walk 50 ft with 2 Turns(QC): 88 Walk 150 ft (QC): 88 Walking 10ft/uneven surface-QC: 88 Distance: 10' Gait Assistive Device: FWW Comments/Gait Description Patient can ambulate 10' with a rolling walker with min assist. WC follow, slow, knees buckle a little on occasion but dont totally give out. Wheelchair Training Does the Pt Use a Wheelchair?: Yes Wheel 50 ft with 2 turns (QC): 1 Wheel 150 ft (QC): 1 Type of Wheelchair: Manual Stairs 1 Step (curb) (QC): 88 4 Steps (QC): 88 12 Steps (QC): 88 Balance Sitting Static: Normal Sitting Dynamic: Normal Standing Static: Fair Picking up an Object (QC): 88 Assessment/Needs Patient has impaired mobility, strength, endurance. She has very weak BLE and needs careful guarding during ambulation, knees tend to buckle. Patient in recliner post tx with nurse call, phone tray, all needs met. After activity patient's BP is 141/83, O2 92%, 86bpm. Rehab Potential: Fair PT Short Term Goals Short Term Goals Time Frame: Mar 16, 2020 Roll Left & Right: 4 Sit to lyin Lying to sitting on side of be: 4 Sit to stand: 4 Chair/fxy-wr-yjvqw transfer: 4 Walk 10 feet: 4 Walk 50 feet with two turns: 4 PT Ophthalmologist Retina Specialist Goals Usp Goals PT Ophthalmologist Retina Specialist Goals Time Frame: Mar 30, 2020 Roll Left & Right (QC): 6 Sit to Lying (QC): 6 Lying-Sitting on Side/Bed(QC): 6 Sit to Stand (QC): 6 Chair/Owj-ok-Lzobe Xfer(QC): 6 Toilet Transfer (QC): 6 Car Transfer (QC): 5 Does the Patient Walk: Yes Walk 10 feet (QC): 4 Walk 50ft with 2 Turns (QC): 4 Walk 150 ft (QC): 4 Walking 10ft on Uneven Surface: 4 1 Step (curb) (QC): 3 4 Steps (QC): 88 12 Steps (QC): 88 Picking up an Object (QC): 88 Wheel 50 feet with 2 turns (QC: 4 Wheel 150 feet: 4 PT Plan Problem List Problem List: Activity Tolerance, Functional Strength, Safety, Balance, Gait, Transfer, Bed Mobility, ROM Treatment/Plan Treatment Plan: Continue Plan of Care Treatment Plan: Bed Mobility, Education, Functional Activity Cristela, Functional Strength, Group Therapy, Gait, Safety, Therapeutic Exercise, Transfers Treatment Duration: Mar 30, 2020 Frequency: At least 5 of 7 days/Wk (IRF) Estimated Hrs Per Day: 1.5 hours per day Patient and/or Family Agrees t: Yes Safety Risks/Education Patient Education: Gait Training, Transfer Techniques, Correct Positioning, W/C Management, Safety Issues Teaching Recipient: Patient Teaching Methods: Demonstration, Discussion Response to Teaching: Reinforcement Needed Discharge Recommendations Plan Patient will perform bed mobility and transfer training, balance and endurance training, functional strengthening, stair training, gait training, and education, to improve functional mobility and independence at home. Therapy Discharge Recommendati: Scheduled Assistance, Home & Family Time/GCodes Time In: 1115 Time Out: 1200 Total Billed Treatment Time: 45 Total Billed Treatment 1 visit TOMASA 15' FA 30' MARI LARRY PT Mar 09, 2020 14:29
--- NOTE | 2020-03-09 14:38 | Physical Therapy Daily Note ---
PT Daily Note-Current Subjective Patient in recliner pre tx, agrees to PT, has some unrated pain in both legs. Will be co-treating with OT due to poor patient mobility, strength, endurance, the need to coordinate UE and LE during activity. Appearance Patient in recliner post tx with nurse call, phone, tray, all needs met. Mental Status Patient Orientation: Person, Place, Situation Attachments: Oxygen Transfers SCALE: Activities may be completed with or without assistive devices. 1-Bkjqiaxsdu-bnuadlb completes the activity by him/herself with no assistance from a helper. 5-Set-up or Clean-up Assistance-helper sets up or cleans up; patient completes activity. [place] assists only prior to or following the activity. 4-Supervision or Touching Assistance-helper provides verbal cues and/or touching/steadying and/or contact guard assistance as patient completes activi ty. Assistance may be provided throughout the activity or intermittently. 3-Partial/Moderate Assistance-helper does LESS THAN HALF the effort. [place] lifts, holds or supports trunk or limbs, but provides less than half the effort. 2-Substantial/Maximal Assistance-helper does MORE THAN HALF the effort. [place] lifts or holds trunk or limbs and provides more than half the effort. 3-Lguruxgkl-mdywee does ALL the effort. Patient does none of the effort to complete the activity. Or, the assistance of 2 or more helpers is required for the patient to complete the activity. If activity was not attempted, code reason: 7-Patient Refused. 9-Not Applicable-not attempted and the patient did not perform the activity before the current illness, exacerbation or injury. 10-Not Attempted due to Environmental Limitations-(lack of equipment, weather restraints, etc.). 88-Not Attempted due to Medical Conditions or Safety Concerns. Sit to Stand (QC): 3 Chair/Apv-px-Edzqg Xfer(QC): 3 Gait Training Distance: 12'x2 Walk 10 feet (QC): 3 Gait Assistive Device: FWW very slow ambulation, antalgic, slight knee buckling the whole way. Patient ambulated to the shower and back to recliner. Treatments PT worked on transfers, ambulation, positioning and safety during bathing. OT worked on bathing and assisted with safety and UE positioning during activity. Assessment Current Status: Fair Progress improving general mobility PT Short Term Goals Short Term Goals Time Frame: Mar 16, 2020 Roll Left & Right: 4 Sit to lyin Lying to sitting on side of be: 4 Sit to stand: 4 Chair/tfy-jf-chzrt transfer: 4 Walk 10 feet: 4 Walk 50 feet with two turns: 4 PT Set Up Inspector Goals Mcc Goals PT Set Up Inspector Goals Time Frame: Mar 30, 2020 Roll Left & Right (QC): 6 Sit to Lying (QC): 6 Lying-Sitting on Side/Bed(QC): 6 Sit to Stand (QC): 6 Chair/Xvb-aj-Xzphs Xfer(QC): 6 Toilet Transfer (QC): 6 Car Transfer (QC): 5 Does the Patient Walk: Yes Walk 10 feet (QC): 4 Walk 50ft with 2 Turns (QC): 4 Walk 150 ft (QC): 4 Walking 10ft on Uneven Surface: 4 1 Step (curb) (QC): 3 4 Steps (QC): 88 12 Steps (QC): 88 Picking up an Object (QC): 88 Wheel 50 feet with 2 turns (QC: 4 Wheel 150 feet: 4 PT Plan Problem List Problem List: Activity Tolerance, Functional Strength, Safety, Balance, Gait, Transfer, Bed Mobility, ROM Treatment/Plan Treatment Plan: Continue Plan of Care Treatment Plan: Bed Mobility, Education, Functional Activity Cristela, Functional Strength, Group Therapy, Gait, Safety, Therapeutic Exercise, Transfers Treatment Duration: Mar 30, 2020 Frequency: At least 5 of 7 days/Wk (IRF) Estimated Hrs Per Day: 1.5 hours per day Patient and/or Family Agrees t: Yes Safety Risks/Education Patient Education: Gait Training, Transfer Techniques, Correct Positioning, Safety Issues Teaching Recipient: Patient Teaching Methods: Demonstration, Discussion Response to Teaching: Reinforcement Needed Time/GCodes Time In: 1310 Time Out: 1355 Total Billed Treatment Time: 45 Total Billed Treatment 1 visit FA 45' MARI LARRY PT Mar 09, 2020 14:37
--- NOTE | 2020-03-09 14:57 | Occupational Therapy Eval ---
OT Evaluation-General/PLF Medical Diagnosis Admission Date Mar 09, 2020 at 11:15 Medical Diagnosis: respiratory failure/hypercapnia/PETR Onset Date: Feb 16, 2020 Therapy Diagnosis Therapy Diagnosis: Weakness, Decreased ADL skills Height/Weight Height (Feet): 5 Height (Inches): 7.00 Weight (Pounds): 220 Weight (Ounces): 0.0 Precautions Precautions/Isolations: Standard Precautions Weight Bear Status Weight Bearing Restriction: Weight Bearing/Tolerated Referral Physician: Tonia Referral Reason: Activity Tolerance, Self Care, Evaluation/Treatment, Strengthening/ROM Medical History Pertinent Medical History: COPD, HTN, Smoking Current History Pt. came to ER with SOA. Found to have influenza B. Hypoxic. Intubated in ER. Pt. came off ventilator on 02-28-20. Reviewed History: Yes Social History Home: Single Level Current Living Status: Alone Entry Into Home: Stairs With Railing Steps Into Home: 4 ADL-Prior Level of Function SCALE: Activities may be completed with or without assistive devices. 4-Vairctkodh-vvguljg completes the activity by him/herself with no assistance from a helper. 5-Set-up or Clean-up Assistance-helper sets up or cleans up; patient completes activity. [place] assists only prior to or following the activity. 4-Supervision or Touching Assistance-helper provides verbal cues and/or touching/steadying and/or contact guard assistance as patient completes activity. Assistance may be provided throughout the activity or intermittently. 3-Partial/Moderate Assistance-helper does LESS THAN HALF the effort. [place] lifts, holds or supports trunk or limbs, but provides less than half the effort. 2-Substantial/Maximal Assistance-helper does MORE THAN HALF the effort. [place] lifts or holds trunk or limbs and provides more than half the effort. 3-Xnpalfspi-lcjvck does ALL the effort. Patient does none of the effort to complete the activity. Or, the assistance of 2 or more helpers is required for the patient to complete the activity. If activity was not attempted, code reason: 7-Patient Refused. 9-Not Applicable-not attempted and the patient did not perform the activity before the current illness, exacerbation or injury. 10-Not Attempted due to Environmental Limitations-(lack of equipment, weather restraints, etc.). 88-Not Attempted due to Medical Conditions or Safety Concerns. ADL PLOF Comments Pt. states that she was independent with daily skills. She does not use a walker for mobility. She lives alone but states that her daughter will stay with her for a couple of days when she goes home. She wears oxygen only at night at home. Does not work. Self Care: Independent Functional Cognition: Unknown DME/Equipment: Tub/Shower OT Current Status Subjective Pt. reports pain in LE. States that it "just hurts" but does not give a pain level. After shower, when pt. was able to elevate LE, pain subsided. Mental Status/Objective Patient Orientation: Person, Place Current Glasses/Contacts: Yes Dentures/Partials: Yes Upper Extremity ROM WFL ADL-Treatment Eating (QC): 6 (per pt.) Oral Hygiene (QC): 10 (Pt. has dentures and wanted to let them soak.) Shower/Bathe Self (QC): 3 (Pt. required assistance to cleanse rear erma area in shower, as well as bilateral feet. Pt. able to wash chest, arms, upper legs, and front erma area.) Upper Body Dressing (QC): 10 (Shirt not available.) Lower Body Dressing (QC): 10 On/Off Footwear (QC): 1 Toileting Hygiene (QC): 2 (Max assist to wash rear erma area in shower.) Other Treatments Pt. seen for OT evaluation. Pt. fatigued but agrees to shower. Partial co- treatment performed with PT/OT due to level of skilled assistance needed. PT assisted pt. with ambulation with walker while OT facilitated hand placement and ADL skills. Pt. stood with mod assistance and ambulated with slow steady pace to shower. Noted increased edema in bilateral LE. While in shower, it was noted that pt's hair significantly matted. OT worked on this for pt. comfort. Washed hair thoroughly. Pt. very fatigued with shower task and OT donned slipper socks for her. Stood from shower with mod assist, and ambulated back to reclining chair. OT brushed hair as pt. had no energy to attempt for self. Pt. reports she is cold and so warm blankets applied. Pt. fell asleep in chair. All needs met. Education OT Patient Education: Correct positioning, Modified ADL techniques, Progress toward Goal/Update tx plan, Purpose of tx/functional activities, Reviewed precautions, Rehab process, Transfer techniques Teaching Recipient: Patient Teaching Methods: Demonstration, Discussion Response to Teaching: Verbalize Understanding, Return Demonstration, Reinforcement Needed OT Short Term Goals Short Term Goals Time Frame: Mar 23, 2020 Eatin Oral hygiene: 4 Toileting hygiene: 3 (Min assist) Shower/bathe self: 3 (Min assist) Upper body dressin (min assist) Lower body dressin (Min assist) Putting on/taking off footwear: 3 (Min assist) OT Usp Goals Pharmacy Operations Manager Goals Time Frame: Mar 30, 2020 Eating (QC): 6 Oral Hygiene (QC): 5 Toileting Hygiene (QC): 4 Shower/Bathe Self (QC): 4 Upper Body Dressing (QC): 5 Lower Body Dressing (QC): 4 On/Off Footwear (QC): 4 Additional Goals: 1-Demonstrate ADL Tasks, 2-Verbalize Understanding, 3- ImproveStrength/Cristela 1=Demonstrate adherence to instructed precautions during ADL tasks. 2=Patient will verbalize/demonstrate understanding of assistive devices/modifications for ADL. 3=Patient will improve strength/tolerance for activity to enable patient to perform ADL's. OT Education/Plan Problem List/Assessment Assessment: Decreased Activ Tolerance, Decreased UE Strength, Dependent T ransfers, Impaired Funct Balance, Impaired I ADL's, Impaired Self-Care Skills Discharge Recommendations Plan/Recommendations: Continue POC Therapy Discharge Recommendati: Home & Family, Post Acute OT Comment Equipment needs to be determined. Treatment Plan/Plan of Care Treatment,Training & Education: Yes Patient would benefit from OT for education, treatment and training to promote independence in ADL's, mobility, safety and/or upper extremity function for ADL's. Plan of Care: ADL Retraining, Functional Mobility, Group Exercise/Act as Ind, UE Funct Exercise/Act Treatment Duration: Mar 30, 2020 Frequency: At least 5 of 7 days/Wk (IRF) Estimated Hrs Per Day: 1.5 hours per day Agreement: Yes Rehab Potential: Fair Time/GCodes Start Time: 12:55 Stop Time: 14:30 Total Time Billed (hr/min): 95 Billed Treatment Time 9803-2947 1, EVM x 15minutes 6500-7190 ADL x 30minutes, FA x 15minutes (cotx with PT. Please see above note for designated roles.) 3534-2269 ADL x 15minutes, FA x 20minutes JOLENE VALDIVIA OT Mar 09, 2020 14:57
[2020-03-09] MEDS: inSUlin ASPART (NovoLOG) 1 UNIT/0.01 ML (CHARGE PER UNIT) SC SCH ×2 (16:27→20:52)
[2020-03-09 17:29] VITALS: BP 131/51
[2020-03-09] MEDS: KCL 20 MEQ TAB (K-DUR) PO SCH (17:49)
--- NOTE | 2020-03-09 18:22 | PM&R Post Admission Assessment ---
PM&R Date of Visit: Mar 09, 2020 Time of Visit: 11:30 History of Present Illness CC: COPD Myopathy HPI: This is a 55yoWM with a past medical history of obesity hypoventilation syndrome who had a 22 day lengthy hospital stay for respiratory failure, non- Covid with hypercapnia and continued debility requiring rehab evaluation and management. At this current time pt is drowsy, I will get an ABG, she does have chronic CO2 retention and I have instructed RT to maintain Bipap every night and during naps. DC note from med-surg: Patient is a 55 yo female with history of COPD, CHF with EF of 25%, tobacco dependence, chronic renal insufficiency, osteoarthritis, and hypertension who presented to the ED on 02/15 for shortness of breath, abdominal swelling, leg swelling and altered mental status. She was admitted to [facility] due to respiratory failure and was intubated prior to transfer. COVID test came back negative, though she tested positive for Pseudomonas pneumonia. She completed a 14 day course of Zosyn. She was reintubated on 02/16 due to self-extubation. She was extubated on 02/27 and was switched to BiPAP. She was moved to fourth floor and PT was started to help her mobility and oxygen use. She was moved to nasal cannula throughout the day and BiPAP at night, though the last two nights she has not been given the BiPAP. She did have one fall, but the floor in her room was slippery and could have contributed. She continues to have some debility and oxygen dependence, so she is being transferred to IRF to aid in improvement of these concerns. DIANA SHEEHAN MED STUDENT Past Krqhblo-Qmhyph-Cfmvvk Hx Past Med/Social Hx: Reviewed Nursing Past Med/Soc Hx, Reviewed and Corrections made Patient Social History Marrital Status: single Employed/Student: unemployed Alcohol Use: Denies Use Recreational Drug Use: No Smoking Status: Current Everyday Smoker Type Used: Cigarettes 2nd Hand Smoke Exposure: Yes Physical Abuse Screen: No Sexual Abuse: No Recent Foreign Travel: No Contact w/other who traveled: No Recent Hopitalizations: No Recent Infectious Disease Expo: No Immunizations Up To Date Tetanus Booster (TDap): Unknown Pediatric: No Seasonal Allergies Seasonal Allergies: Yes Past Medical History Surgeries: Bladder Surgery, Section, Gallbladder Respiratory: Chronic Bronchitis, COPD, Pneumonia Currently Using CPAP: No Currently Using BIPAP: No Cardiac: Chronic Edema/Swelling, High Cholesterol, Hypertension Reproductive: No Sexually Transmitted Disease: No HIV/AIDS: No Female Reproductive Disorders: Denies Genitourinary: Bladder Infection Gastrointestinal: Gastroesophageal Reflux, Hiatal Hernia Musculoskeletal: Chronic Back Pain Are Your Blood Sugars Over 250: No Loss of Vision: Bilateral Hearing Impairment: Denies Psychosocial: Anxiety, Depression History of Blood Disorders: No Adverse Reaction to Blood Hayes: No (N/A) Family History COPD 19 MOTHER Diabetes mellitus 19 FATHER Myocardial infarction 19 FATHER TESTICULAR CANCER G8 BROTHER No Pertinent Family Hx Prior Level of Function Bed Mobility: 6 Transfers: 6 Gait: 6 Stairs: 6 Indoor Mobility (Ambulation): Independent Stairs: Independent Self Care: Independent Functional Cognition: Unknown Current Level of Fuctioning Roll Left to Right: 3 Sit to Lyin Lying to Sitting/Side of Bed: 3 Sit to Stand: 3 Chair/Rnt-kl-Iirin Xfer: 3 Car Transfer: 3 Does the Patient Walk: Yes Mode of Locomotion: Walk Anticipated Mode of Locomotion: Walk Walk 10 feet: 3 Walk 50 ft with 2 Turns: 88 Walk 150 ft: 88 Walking 10ft on uneven surface: 88 Gait Assistive Device: FWW Does the Pt Use a Wheelchair: Yes Wheel 50 ft with 2 turns: 1 Wheel 150 ft: 1 Type of Wheelchair: Manual 1 Step (curb): 88 4 Steps: 88 12 Steps: 88 Picking up an Object: 88 Eatin (per pt.) Oral Hygiene: 10 (Pt. has dentures and wanted to let them soak.) Shower/Bathe Self: 3 (Pt. required assistance to cleanse rear erma area in shower, as well as bilateral feet. Pt. able to wash chest, arms, upper legs, and front erma area.) Upper Body Dressin (Shirt not available.) Lower Body Dressin On/Off Footwear: 1 Toileting Hygiene: 2 (Max assist to wash rear erma area in shower.) PM&R Allergy/Meds/Data Review Allergies Coded Allergies: No Known Drug Allergies (Unverified , 05/06/19) Home Medications Scheduled Aspirin (Aspirin), 81 MG PO DAILY, (Reported) Atorvastatin Calcium (Atorvastatin Calcium), 40 MG PO DAILY, (Reported) Furosemide (Furosemide), 40 MG PO DAILY, (Reported) Hydrochlorothiazide (Hydrochlorothiazide), 25 MG PO DAILY, (Reported) Potassium Chloride (Potassium Chloride), 40 MEQ PO DAILY, (Reported) Scheduled PRN Albuterol Sulfate (Proair Hfa), 2 PUFF IH Q4H PRN for SHORTNESS OF BREATH, (Reported) Diphenhydramine HCl (Benadryl), 50 MG PO DAILY PRN for ALLERGY SYMPTOMS, (Reported) Current Medications Current Medications Reviewed Laboratory Data Laboratory Tests 03/09/20 15:35: Glucometer 94 Review of Systems Constitutional: see HPI, malaise, weakness EENTM: no symptoms reported Respiratory: dyspnea on exertion Cardiovascular: no symptoms reported Gastrointestinal: no symptoms reported Genitourinary: no symptoms reported Musculoskeletal: back pain, joint pain Skin: no symptoms reported Psychiatric/Neurological: Anxiety, Depressed All Other Systems Reviewed Negative Unless Noted: Yes Physical Exam Physical Exam Vital Signs Vital Signs - First Documented 03/09/20 13:22 Temp 36.6 Pulse 86 Resp 20 B/P (MAP) 141/83 Pulse Ox 94 O2 Delivery Nasal Cannula O2 Flow Rate 2.00 Capillary Refill : Height, Weight, BMI Height: 5'7.00" Weight: 220lbs. 0.0oz. 99.035127tl; 43.56 BMI Method:Stated General Appearance: No Apparent Distress, WD/WN, Chronically ill, Obese Eyes: Bilateral Eye Normal Inspection, Bilateral Eye PERRL HEENT: PERRL/EOMI, Normal ENT Inspection, Pharynx Normal Neck: Full Range of Motion, Normal Inspection, Non Tender, Supple, Carotid Bruit Respiratory: Chest Non Tender, Lungs Clear, No Accessory Muscle Use, No Respiratory Distress, Decreased Breath Sounds Cardiovascular: Regular Rate, Rhythm, No Edema, No Gallop, No JVD, No Murmur, Normal Peripheral Pulses Gastrointestinal: Normal Bowel Sounds, No Organomegaly, No Pulsatile Mass, Non Tender, Soft Back: Normal Inspection, No CVA Tenderness, No Vertebral Tenderness Extremity: Normal Capillary Refill, Normal Inspection, Normal Range of Motion, Non Tender, No Calf Tenderness, No Pedal Edema Neurologic/Psychiatric: Alert, Oriented x3, No Motor/Sensory Deficits, Normal Mood/Affect, Depressed Affect, Motor Weakness (generalized all extremities) Skin: Normal Color, Warm/Dry Lymphatic: No Adenopathy PM&R Medical Assessment & Plan REHAB/MEDICAL ASSESSMENT AND PLAN: REHAB IMPAIRMENT GROUP: COPD myopathy ETIOLOGIC DIAGNOSIS: COPD myopathy The comorbidities that impact the patients function and/or functional outcome by: severe COPD, previous smoker, obesity hypoventilation syndrome REHAB PLAN: The patient is being admitted to our comprehensive inpatient rehabilitation facility and can tolerate the intensity of service consisting of at least: 180 minutes of therapy a day, 5 out of 7 days a week Rehab treatment will consist of: PT OT will work on increasing stamina along with strength in order to return home to live independently and increase lung function with exercise The patient/family has a good understanding of our discharge process and will benefit from an interdisciplinary inpatient rehabilitation program. The patient has potential to make improvement and is in need of at least two of the following multidisciplinary therapies including but not limited to physical, occupational, speech, and prosthetics and orthotics. Additionally the patient will need services from respiratory, nutritional services, wound care, psychology, etc. (Customize this to each patient). Given the patients complex condition and risk of further medical complications, rehabilitation services cannot be safely or effectively provided at a lower level of care such as a [facility]. BARRIERS TO DISCHARGE: Severe lung disease ESTIMATED LOS: 10 days DISPOSITION: Home RELEVANT CHANGES SINCE PREADMISSION SCREENING: I have compared the patients medical and functional status at the time of the preadmission screening and there are: no changes PROGNOSIS: Good REHABILITATION GOALS: 1.PT OT will work on increasing stamina along with strength in order to return home to live independently and increase lung function with exercise All the above goals were reviewed with the patient and he/she is in agreement. By signing this document, I acknowledge that I have personally performed a full physical examination on this patient within 24 hours of admission to this inpatient rehabilitation facility and have determined the patient to be able to tolerate the above course of treatment at an intensive level for a reasonable period of time. I will be completing a detailed individualized Plan of Care for this patient by day #4 of the patients stay based upon the Preadmission Screen, the Post-Admission Evaluation, and the therapy evaluations. Admission Dx/Comorbidities: (1) Critical illness myopathy ICD Codes: G72.81 - Critical illness myopathy (2) Obesity hypoventilation syndrome ICD Codes: E66.2 - Morbid (severe) obesity with alveolar hypoventilation (3) Delirium Status: Resolved ICD Codes: R41.0 - Disorientation, unspecified (4) Debility Status: Acute ICD Codes: R53.81 - Other malaise (5) Acute renal failure (ARF) Status: Resolved ICD Codes: N17.9 - Acute kidney failure, unspecified (6) Influenza B Status: Acute ICD Codes: J10.1 - Influenza due to other identified influenza virus with other respiratory manifestations (7) Septic shock Status: Resolved ICD Codes: A41.9 - Sepsis, unspecified organism; R65.21 - Severe sepsis with septic shock (8) Acute and chronic respiratory failure with hypoxia Status: Acute ICD Codes: J96.21 - Acute and chronic respiratory failure with hypoxia (9) Elevated brain natriuretic peptide (BNP) level Status: Acute ICD Codes: R79.89 - Other specified abnormal findings of blood chemistry Assessment/Plan Assessment and Plan Assess & Plan/Chief Complaint Assessment: Critical illness myopathy Severe COPD OHS HTN Volume overload Delirium Plan: Home meds Monitor closely Nebs biPAP at night IRF protocol DAVID THOMPSON DO Mar 09, 2020 18:22
[2020-03-09 20:11] LABS: ABG BASE EXCESS 9.2 MMOL/L (-2.5-2.5); ABG OXYGEN SATURATION 96 % (94-100); ABG PCO2 48 MMHG (35-45); ABG PH 7.46 (7.37-7.43); ABG PO2 77 MMHG (79-93); ABG TCO2 34.8 MMOL/L (21.0-31.0); ALLENS TEST POSITIVE; INSPIRED O2 2; PATIENT TEMP 37.2; VENTILATOR NO
[2020-03-09 20:15] VITALS: BP 131/51
[2020-03-09] MEDS ORDERED: RT-ALBUTEROL/IPRATROPIUM 3 ML (DUONEB) VIAL INH PRN (20:30)
[2020-03-09] MEDS ORDERED: PRAMIPEXOLE 0.125 MG (MIRAPEX) TABLET PO SCH (21:00)
[2020-03-09] MEDS: meTOprolol TARTRATE 25 MG (LOPRESSOR) TABLET PO SCH (22:41)
[2020-03-09] MEDS: ENOXAPARIN 40 MG/0.4 ML (LOVENOX) SYR SC SCH (22:42)
[2020-03-10] MEDS: ALPRAZolam 0.25 MG (XANAX) TAB PO PRN ×2 (03:09→11:56)
[2020-03-10] MEDS: RT-ALBUTEROL/IPRATROPIUM 3 ML (DUONEB) VIAL INH SCH ×4 (05:22→20:32)
[2020-03-10 06:00] VITALS: BP 182/93
[2020-03-10] MEDS: inSUlin ASPART (NovoLOG) 1 UNIT/0.01 ML (CHARGE PER UNIT) SC SCH ×2 (06:43→12:01)
[2020-03-10] MEDS: ENOXAPARIN 40 MG/0.4 ML (LOVENOX) SYR SC SCH ×2 (08:20→20:27)
[2020-03-10] MEDS: SENNA W/DOCUSATE (SENOKOT S) TABLET PO SCH ×2 (08:21→20:04)
[2020-03-10] MEDS: polyethylene glycoL POWDER 17 GM (MIRALAX) PACK PO SCH ×2 (08:21→20:04)
[2020-03-10] MEDS: ASPIRIN 81 MG CHEW (CHILDREN'S ASA) PO SCH (08:21)
[2020-03-10] MEDS: FUROSEMIDE 20 MG (LASIX) TAB PO SCH (08:22)
[2020-03-10] MEDS: LOSARTAN 25 MG (COZAAR) TAB PO SCH (08:22)
[2020-03-10] MEDS: DOCUSATE SODIUM 100 MG (COLACE) CAP PO SCH ×2 (08:22→20:03)
[2020-03-10] MEDS: meTOprolol TARTRATE 25 MG (LOPRESSOR) TABLET PO SCH ×2 (08:23→20:27)
[2020-03-10] MEDS: PANTOPRAZOLE 40 MG (PROTONIX) TAB PO SCH (08:23)
[2020-03-10] MEDS: NYSTATIN CREAM (MYCOSTATIN) 30 GM TUBE TP SCH ×3 (08:24→20:27)
[2020-03-10] MEDS: ACETAMINOPHEN 325 MG TABLET PO PRN ×2 (08:28→13:53)
[2020-03-10] MEDS: KCL 20 MEQ TAB (K-DUR) PO SCH ×2 (08:30→17:56)
[2020-03-10 08:38] VITALS: BP 141/81
[2020-03-10] MEDS: ZINC OXIDE 16% OINT (BUTT PASTE) 57 GM TUBE TOP PRN (11:56)
--- NOTE | 2020-03-10 12:03 | Physical Therapy Daily Note ---
PT Daily Note-Current Subjective Patient in restroom pre tx, agrees to PT, has no complaints of pain. Will be co-treating with OT due to poor patient mobility, severely impaired LE strength, impaired balance and endurance, the need to coordinate UE and LE during activity. Appearance Patient in recliner post tx with nurse call, phone, tray, all needs met, chair alarm on. Mental Status Patient Orientation: Person, Place, Situation Transfers SCALE: Activities may be completed with or without assistive devices. 8-Lcsltyjfnf-oejqyuq completes the activity by him/herself with no assistance from a helper. 5-Set-up or Clean-up Assistance-helper sets up or cleans up; patient completes activity. [place] assists only prior to or following the activity. 4-Supervision or Touching Assistance-helper provides verbal cues and/or touching/steadying and/or contact guard assistance as patient completes activity. Assistance may be provided throughout the activity or intermittently. 3-Partial/Moderate Assistance-helper does LESS THAN HALF the effort. [place] lifts, holds or supports trunk or limbs, but provides less than half the effort. 2-Substantial/Maximal Assistance-helper does MORE THAN HALF the effort. [place] lifts or holds trunk or limbs and provides more than half the effort. 6-Hvgblazyu-mrmror does ALL the effort. Patient does none of the effort to complete the activity. Or, the assistance of 2 or more helpers is required for the patient to complete the activity. If activity was not attempted, code reason: 7-Patient Refused. 9-Not Applicable-not attempted and the patient did not perform the activity before the current illness, exacerbation or injury. 10-Not Attempted due to Environmental Limitations-(lack of equipment, weather restraints, etc.). 88-Not Attempted due to Medical Conditions or Safety Concerns. Sit to Stand (QC): 3 Chair/Krb-xr-Tchoc Xfer(QC): 3 Mod assist for sit to stand, during transfers patient sits too soon, lunges toward chair, patient is aware of this and she says she does it on purpose and is not compliant with safety instructions. Patient stands from toilet and pulls pants up. Gait Training Walk 10 feet (QC): 3 Gait Assistive Device: FWW Wheelchair Training Does the Pt Use a Wheelchair?: Yes Wheel 50 ft with 2 turns (QC): 3 Wheel 150 ft (QC): 3 Type of Wheelchair: Manual Min assist around corners, 150'x2, very slow, patient can only push herself forward a few inches at a time. Exercises standing in parallel bars x4 and performing UE activity (theraband and cone reach) Treatments toileting, WC mobility, ambulation, standing Assessment Current Status: Poor Progress Patient seems to have worse weakness in legs and worse endurance PT Short Term Goals Short Term Goals Time Frame: Mar 16, 2020 Roll Left & Right: 4 Sit to lyin Lying to sitting on side of be: 4 Sit to stand: 4 Chair/mjj-hz-vysus transfer: 4 Walk 10 feet: 4 Walk 50 feet with two turns: 4 PT [place] Goals [place] Goals PT Intermediate Goals Time Frame: Mar 30, 2020 Roll Left & Right (QC): 6 Sit to Lying (QC): 6 Lying-Sitting on Side/Bed(QC): 6 Sit to Stand (QC): 6 Chair/Mxp-dy-Mwbcf Xfer(QC): 6 Toilet Transfer (QC): 6 Car Transfer (QC): 5 Does the Patient Walk: Yes Walk 10 feet (QC): 4 Walk 50ft with 2 Turns (QC): 4 Walk 150 ft (QC): 4 Walking 10ft on Uneven Surface: 4 1 Step (curb) (QC): 3 4 Steps (QC): 88 12 Steps (QC): 88 Picking up an Object (QC): 88 Wheel 50 feet with 2 turns (QC: 4 Wheel 150 feet: 4 PT Plan Problem List Problem List: Activity Tolerance, Functional Strength, Safety, Balance, Gait, Transfer, Bed Mobility, ROM Treatment/Plan Treatment Plan: Continue Plan of Care Treatment Plan: Bed Mobility, Education, Functional Activity Cristela, Functional Strength, Group Therapy, Gait, Safety, Therapeutic Exercise, Transfers Treatment Duration: Mar 30, 2020 Frequency: At least 5 of 7 days/Wk (IRF) Estimated Hrs Per Day: 1.5 hours per day Patient and/or Family Agrees t: Yes Safety Risks/Education Patient Education: Gait Training, Transfer Techniques, Correct Positioning, W/C Management, Safety Issues Teaching Recipient: Patient Teaching Methods: Demonstration, Discussion Response to Teaching: Reinforcement Needed Time/GCodes Time In: 1100 Time Out: 1200 Total Billed Treatment Time: 60 Total Billed Treatment 1 visit EX 20' FA 40' MARI LARRY PT Mar 10, 2020 12:03
--- NOTE | 2020-03-10 12:07 | Occupational Ther Daily Note ---
OT Current Status-Daily Note Subjective Pt was in bed upon arrival. Pt no c/o pain. Stated legs felt better with heat. Pt agreed to therapy. Mental Status/Objective Patient Orientation: Person, Place, Time, Situation Attachments: IV, Oxygen (2 L) ADL-Treatment Pt laying supine to EOB. Pt performed oral care at bedside, able to complete with set up by gathering supplies. Pt performed don/doff UE clothing with set up. Pt max A for donning/doffing socks without AE. Pt educated on how to use sock aid, threaded sock on to feet(min A). Co-treatment with PT ([id number]) skills of two clinicians required for skilled instruction and care for transfers, safety concern. Pt ambulated to restroom using FWW mod A with ambulation and assist to manipulate O2 tubing. Pt used grab bars, PT to stabilize. Pt cleansed perineal area. Pt used grab bars to help pull self up, PT to stabilize. Pt used FWW to transfer to w/c. Therapy Code Descriptions/Definitions Functional White Measure: 0=Not Assessed/NA 4=Minimal Assistance 1=Total Assistance 5=Supervision or Setup 2=Maximal Assistance 6=Modified White 3=Moderate Assistance 7=Complete IndependenceSCALE: Activities may be completed with or without assistive devices. 3-Hgwpomjsod-xbtnwiz completes the activity by him/herself with no assistance from a helper. 5-Set-up or Clean-up Assistance-helper sets up or cleans up; patient completes activity. [place] assists only prior to or following the activity. 4-Supervision or Touching Assistance-helper provides verbal cues and/or touching/steadying and/or contact guard assistance as patient completes activity. Assistance may be provided throughout the activity or intermittently. 3-Partial/Moderate Assistance-helper does LESS THAN HALF the effort. [place] lifts, holds or supports trunk or limbs, but provides less than half the effort. 2-Substantial/Maximal Assistance-helper does MORE THAN HALF the effort. [place] lifts or holds trunk or limbs and provides more than half the effort. 1-Fyrvyixmy-ebavij does ALL the effort. Patient does none of the effort to complete the activity. Or, the assistance of 2 or more helpers is required for the patient to complete the activity. If activity was not attempted, code reason: 7-Patient Refused. 9-Not Applicable-not attempted and the patient did not perform the activity before the current illness, exacerbation or injury. 10-Not Attempted due to Environmental Limitations-(lack of equipment, weather restraints, etc.). 88-Not Attempted due to Medical Conditions or Safety Concerns. Oral Hygiene (QC): 5 Upper Body Dressing (QC): 5 Lower Body Dressing (QC): 3 On/Off Footwear: 2 Toileting Hygiene (QC): 3 Toilet Transfer (QC): 2 Pt tends to throw self into chairs or places to sit before placing self in correct position to chair. Pt states that this is how she does it and she knows that she is safe. Other Treatment Pt propelled w/c to therapy gym. PT worked with pt on standing balance in parallel bars. BL[place]ON worked on Medium Theraband UE exercise completing 1 set 10 reps while pt was standing in parallel bars, skilled instruction required for technique and modification when necessary. Rest breaks required. Pt worked on UE movements completing 8/8 stacking cones, to work on crossing midline, eye hand coordination while working on standing balance in parallel bars for daily functional task. Check PT notes on standing. Pt propelled back to room. Pt transferred to recliner assist x2. Call light/phone in reach. All needs met. OT Short Term Goals Short Term Goals Time Frame: Mar 23, 2020 Eatin Oral hygiene: 4 Toileting hygiene: 3 (Min assist) Shower/bathe self: 3 (Min assist) Upper body dressin (min assist) Lower body dressin (Min assist) Putting on/taking off footwear: 3 (Min assist) OT Passenger Relations Representative Goals Longterm Goals Time Frame: Mar 30, 2020 Eating (QC): 6 Oral Hygiene (QC): 5 Toileting Hygiene (QC): 4 Shower/Bathe Self (QC): 4 Upper Body Dressing (QC): 5 Lower Body Dressing (QC): 4 On/Off Footwear (QC): 4 Additional Goals: 1-Demonstrate ADL Tasks, 2-Verbalize Understanding, 3- ImproveStrength/Cristela 1=Demonstrate adherence to instructed precautions during ADL tasks. 2=Patient will verbalize/demonstrate understanding of assistive devices/modifications for ADL. 3=Patient will improve strength/tolerance for activity to enable patient to perform ADL's. OT Education/Plan Problem List/Assessment Assessment: Decreased Activ Tolerance, Decreased UE Strength, Impaired Funct Balance, Impaired Self-Care Skills Discharge Recommendations Plan/Recommendations: Continue POC Treatment Plan/Plan of Care Patient would benefit from OT for education, treatment and training to promote independence in ADL's, mobility, safety and/or upper extremity function for ADL's. Plan of Care: ADL Retraining, Functional Mobility, Group Exercise/Act as Ind, UE Funct Exercise/Act Treatment Duration: Mar 30, 2020 Frequency: At least 5 of 7 days/Wk (IRF) Estimated Hrs Per Day: 1.5 hours per day Agreement: Yes Rehab Potential: Fair Time/GCodes Start Time: 10:30 Stop Time: 12:00 Total Time Billed (hr/min): 90 Billed Treatment Time 1 visit- ADL 3 (40 mins), EX 3 (50mins) Co-treatment ([id number]) Ind- ([id number]) TETO TINOCO Mar 10, 2020 12:07
--- NOTE | 2020-03-10 12:27 | PM&R Progress Note ---
Subjective HPI/CC On Admission Date Seen by Provider: Mar 10, 2020 Time Seen by Provider: 12:30 Subjective/Events-last exam Patient settling in well Used biPAP last night ABG reviewed No pain reported except legs and Mirapex does not work so will maintained Xanax scheduled at night Checked meds and labs Conferred with RN Reviewed therapy notes Review of Systems General: Fatigue, Malaise Neurological: Weakness, Incoordination Objective Exam Vital Signs Vital Signs Date Time Temp Pulse Resp B/P (MAP) Pulse Ox O2 Delivery O2 Flow Rate FiO2 03/11/20 05:11 37.1 87 20 167/78 (107) 95 NIV Bilevel 03/11/20 02:15 30.00 03/09/20 20:15 21 Capillary Refill : Less Than 3 Seconds General Appearance: No Apparent Distress, WD/WN, Chronically ill, Obese HEENT: PERRL/EOMI, Normal ENT Inspection, Pharynx Normal Neck: Full Range of Motion, Normal Inspection, Non Tender, Supple, Carotid Bruit Respiratory: Chest Non Tender, Lungs Clear, No Accessory Muscle Use, No Respi ratory Distress, Decreased Breath Sounds Cardiovascular: Regular Rate, Rhythm, No Edema, No Gallop, No JVD, No Murmur, Normal Peripheral Pulses Gastrointestinal: Normal Bowel Sounds, No Organomegaly, No Pulsatile Mass, Non Tender, Soft Back: Normal Inspection, No CVA Tenderness, No Vertebral Tenderness Extremity: Normal Capillary Refill, Normal Inspection, Normal Range of Motion, Non Tender, No Calf Tenderness, No Pedal Edema Neurologic/Psychiatric: Alert, Oriented x3, No Motor/Sensory Deficits, Normal Mood/Affect, Depressed Affect, Motor Weakness (generalized all extremities) Skin: Normal Color, Warm/Dry Lymphatic: No Adenopathy Results/Procedures Lab Patient resulted labs reviewed. FIM Transfers Therapy Code Descriptions/Definitions Functional [place] Measure: 0=Not Assessed/NA 4=Minimal Assistance 1=Total Assistance 5=Supervision or Setup 2=Maximal Assistance 6=Modified [place] 3=Moderate Assistance 7=Complete IndependenceSCALE: Activities may be completed with or without assistive devices. 3-Vlnkvbqljs-dbbygoo completes the activity by him/herself with no assistance from a helper. 5-Set-up or Clean-up Assistance-helper sets up or cleans up; patient completes activity. [place] assists only prior to or following the activity. 4-Supervision or Touching Assistance-helper provides verbal cues and/or touching/steadying and/or contact guard assistance as patient completes activity. Assistance may be provided throughout the activity or intermittently. 3-Partial/Moderate Assistance-helper does LESS THAN HALF the effort. [place] lifts, holds or supports trunk or limbs, but provides less than half the effort. 2-Substantial/Maximal Assistance-helper does MORE THAN HALF the effort. [place] lifts or holds trunk or limbs and provides more than half the effort. 0-Bfozkqbkj-seuiww does ALL the effort. Patient does none of the effort to complete the activity. Or, the assistance of 2 or more helpers is required for the patient to complete the activity. If activity was not attempted, code reason: 7-Patient Refused. 9-Not Applicable-not attempted and the patient did not perform the activity before the current illness, exacerbation or injury. 10-Not Attempted due to Environmental Limitations-(lack of equipment, weather restraints, etc.). 88-Not Attempted due to Medical Conditions or Safety Concerns. Roll Left to Right (QC): 3 Sit to Lying (QC): 3 Sit to Stand (QC): 3 Chair/Sad-kt-Mqcny Xfer(QC): 3 Car Transfer (QC): 3 Gait Training Does the Patient Walk?: Yes Distance: 12'x2 Walk 10 feet (QC): 3 Walk 50 ft with 2 Turns(QC): 88 Walk 150 ft (QC): 88 Walking 10ft/uneven surface-QC: 88 Gait Assistive Device: FWW Wheelchair Training Does the Pt Use a Wheelchair?: Yes Wheel 50 ft with 2 turns (QC): 3 Wheel 150 ft (QC): 3 Type of Wheelchair: Manual Stair Training 1 Step (curb) (QC): 88 4 Steps (QC): 88 12 Steps (QC): 88 Balance Picking up an Object (QC): 88 ADL-Treatment Eating (QC): 6 (per pt.) Oral Hygiene (QC): 5 Shower/Bathe Self (QC): 3 (Pt. required assistance to cleanse rear erma area in shower, as well as bilateral feet. Pt. able to wash chest, arms, upper legs, and front erma area.) Upper Body Dressing (QC): 10 (Shirt not available.) Lower Body Dressing (QC): 10 On/Off Footwear (QC): 1 Toileting Hygiene (QC): 3 Toilet Transfer (QC): 1 Assessment/Plan Assessment and Plan Assess & Plan/Chief Complaint Assessment: Critical illness myopathy Severe COPD OHS HTN Volume overload Delirium Plan: Home meds Monitor closely Nebs biPAP at night IRF protocol 03/10/20: Monitor leg pain RLS issues Monitor lungs biPAP at night (1) Critical illness myopathy (2) Obesity hypoventilation syndrome (3) Delirium Status: Resolved Resolution Date/Time: 03/02/20 @ 10:50 (4) Debility Status: Acute (5) Acute renal failure (ARF) Status: Resolved Resolution Date/Time: 02/21/20 @ 13:40 (6) Influenza B Status: Acute (7) Septic shock Status: Resolved Resolution Date/Time: 02/28/20 @ 13:39 (8) Acute and chronic respiratory failure with hypoxia Status: Acute (9) Elevated brain natriuretic peptide (BNP) level Status: Acute DAVID THOMPSON DO Mar 10, 2020 12:27
--- NOTE | 2020-03-10 12:28 | Individualized Plan of Care ---
Individualized Plan of Care Rehab Nursing IPOC Order Admission Date Mar 09, 2020 at 11:15 Current Orders Orders Admission Order(Inpt,Obs,Sdc) (03/09/20 05:04) Vital Signs: Per Unit Policy ( 08,16,00 (03/09/20 05:04) Magnetic Grinder Operator-Inpt Rehab Con (03/09/20 05:04) Rehab Nursing Orders-Ipoc (03/09/20 05:04) Physical Therapy Rehab Orders (03/09/20 05:04) Occupational Therapy Rehab Ord (03/09/20 05:04) Speech Therapy Rehab Orders (03/09/20 05:04) General/Regular (03/09/20 Breakfast) Intake & Output 06,14,22 (03/09/20 05:04) Precautions (Aru) (03/09/20 05:04) Rehab-Intensity Of Therapy (03/09/20 05:04) Initiate Admission Nursing Pro .admission (03/09/20 05:04) Acetaminophen Tablet (Tylenol Tablet) (03/09/20 05:15) Alprazolam Tablet (Xanax Tablet) (03/09/20 05:15) Calcium Carbonate Chew Tablet (Antacid C (03/09/20 05:15) Diphenhydramine Tablet (Benadryl Tablet) (03/09/20 05:15) Docusate Sodium Capsule (Colace Capsule) (03/09/20 09:00) Docusate Sodium Capsule (Colace Capsule) (03/09/20 05:15) Bisacodyl Suppository (Dulcolax Supposit (03/09/20 05:15) Lactulose Oral Solution (Enulose Oral So (03/09/20 05:15) Na Phos/Na Biphos Enema (Fleet Enema Rene (03/09/20 05:15) Guaifenesin/Codeine Syrup (Robitussin Ac (03/09/20 05:15) Loperamide Tablet (Imodium Tablet) (03/09/20 05:15) Melatonin Tablet (Melatonin Tablet) (03/09/20 05:15) Polyethylene Glycol Powder Pkt (Miralax (03/09/20 09:00) Ondansetron Oral Dissolve Tab (Zofran (03/09/20 05:15) Senna S Tablet (Senokot S Tablet) (03/09/20 09:00) Initiate Admission Nursing Pro .admission (03/09/20 05:04) Admission Arrival Bed Request (03/09/20 11:36) Code/Resuscitation (03/09/20 12:54) Catheter(Urinary) Discontinue (03/09/20 12:54) Dressing Order (Intervention) Q24H (03/09/20 12:54) Heel Protectors Bilateral (03/09/20 12:54) Ensure Enlive (03/09/20 Lunch) Heart Healthy (03/09/20 Lunch) Acetaminophen Tablet/Caplet (Tylenol T (03/09/20 13:00) Albuterol Inhaler (Ventolin Hfa) (03/09/20 13:00) Albuterol/Ipra Inhalation Soln (Duoneb I (03/09/20 14:00) Aspirin Chewable Tablet (Baby Aspirin Ch (03/10/20 09:00) Atorvastatin Tablet (Lipitor) (03/10/20 09:00) Enoxaparin Injection (Lovenox Injection) (03/09/20 21:00) Furosemide Tablet (Lasix Tablet) (03/10/20 09:00) Losartan Tablet (Cozaar Tablet) (03/10/20 09:00) Insulin Aspart (Novolog) (Novolog (Charg (03/09/20 16:00) Nystatin Cream (Mycostatin Cream) (03/09/20 13:00) Pantoprazole Tablet (Protonix Tablet) (03/10/20 09:00) Potassium Chloride (Tablet) (K Dur Table (03/09/20 18:00) Pramipexole Tablet (Mirapex Tablet) (03/09/20 21:00) Sodium Chloride Flush (Catheter Flush Sy (03/09/20 13:00) Zinc Oxide 16% (Butt Paste) (03/09/20 13:00) Metoprolol Tartrate (Ir) Tab (Lopressor (03/09/20 21:00) Bipap (Bilevel) Set Up (03/09/20 12:54) Communication For Respiratory (03/09/20 12:54) Svn Small Volume Nebulizer (03/09/20 12:54) Svn Small Volume Nebulizer (03/09/20 12:54) Arterial Blood Gas (03/09/20 20:00) Arterial Blood Draw (03/09/20 12:54) Patient Visit (03/09/20 ) Pt Eval Moderate Complexity (03/09/20 ) Functional Activities, Ea 15 (03/09/20 ) Patient Visit (03/09/20 ) Functional Activities, Ea 15 (03/09/20 ) Albuterol/Ipra Inhalation Soln (Duoneb I (03/09/20 21:00) Mat Initiate Protocol (03/09/20 20:21) Albuterol/Ipra Inhalation Soln (Duoneb I (03/09/20 20:30) Svn Small Volume Nebulizer (03/09/20 20:21) Nystatin Cream (Mycostatin Cream) (03/10/20 09:00) Zinc Oxide 16% (Butt Paste) (03/10/20 06:30) Alprazolam Tablet (Xanax Tablet) (03/10/20 21:00) Patient Visit (03/10/20 ) Functional Activities, Ea 15 (03/10/20 ) Exercise Therap, Ea 15 Min (03/10/20 ) Rehab Nursing Orders: Ongoing Assess. of Cognitive Status, Ongoing Assess. of Function Status, Bladder Management, Bladder Scan, Bladder Training, Bowel Management, Bowel Training, Disease Management & Educaiton, DVT Prophylaxis, Fall Prevention, Fluid/Electrolyte/Nutrition Mgmt, Infection Prevention, Medication Management & Education, Management of Risks & Complications, Nutrition Management, Pain Management, Patient/Family Support, Safety Management Intensity of Therapy to be met Patient to be seen: Min.3h per day/5 of 7d PT IPOC Problem List: Activity Tolerance, Functional Strength, Safety, Balance, Gait, Transfer, Bed Mobility, ROM Treatment Plan: Continue Plan of Care Bed Mobility, Education, Functional Activity Cristela, Functional Strength, Group Therapy, Gait, Safety, Therapeutic Exercise, Transfers Treatment Duration: Mar 30, 2020 Frequency: At least 5 of 7 days/Wk (IRF) Estimated Hrs Per Day: 1.5 hours per day OT IPOC Problems: Decreased Activ Tolerance, Decreased UE Strength, Impaired Funct Balance, Impaired Self-Care Skills OT Treatment, Training and Edu: Yes Plan of Care: ADL Retraining, Functional Mobility, Group Exercise/Act as Ind, UE Funct Exercise/Act Treatment Duration: Mar 30, 2020 Frequency: At least 5 of 7 days/Wk (IRF) Estimated Hrs Per Day: 1.[address] IPOC Speech Therapy Treatment Plan: Discontinue ST Treatment Duration: Mar 10, 2020 Frequency: Modified Program (IRF) Estimated Hrs Per Day: Other Magnetic Grinder Operator/Case Mgmt Magnetic Grinder Operator/Case Managemen: Discharge Planning Dietitian/Undercollar Baster Dietitian/Undercollar Baster to monitor nutritional status and make changes and/or recommendations as needed and work with speech pathology on dietary upgrades as the occur. Physician IPOC Medical Issues being managed closely and that require the 24 hour availability of a physician: Recent lengthy hospital stay due to resp failure and h/o OHA will have an increased risk of decompensation Medical Issues: Bowel/Bladder Function, DVT Prophylaxis, Falls Precautions, Fluid/Electrolyte/Nutrition Balance, Infection Protection, Pain Management Brief Synthesis of Preadmission Screen, Post-Admission Evaluation, and Therapy Evaluations: PT OT will focus on regaining function in order to return home to live independently while increasing stamina and lung function Medical Prognosis: 7 days Anticipated Length of Stay: DAVID Hobbs DO Mar 10, 2020 12:28
--- NOTE | 2020-03-10 14:20 | Physical Therapy Daily Note ---
PT Daily Note-Current Subjective Patient in bed pre tx, agrees to PT, has unrated pain in both legs. Patient is very lethargic will wake for a few seconds and then fall back asleep. She can only say a few words at a time due to falling asleep, cannot stay on task. Appearance Patient in bed post tx with nurse call, phone, tray, all needs met. Mental Status Patient Orientation: Person Attachments: Oxygen Transfers SCALE: Activities may be completed with or without assistive devices. 1-Mpzmpsmbfu-xcilflr completes the activity by him/herself with no assistance from a helper. 5-Set-up or Clean-up Assistance-helper sets up or cleans up; patient completes activity. [place] assists only prior to or following the activity. 4-Supervision or Touching Assistance-helper provides verbal cues and/or touching/steadying and/or contact guard assistance as patient completes act ivity. Assistance may be provided throughout the activity or intermittently. 3-Partial/Moderate Assistance-helper does LESS THAN HALF the effort. [place] lifts, holds or supports trunk or limbs, but provides less than half the effort. 2-Substantial/Maximal Assistance-helper does MORE THAN HALF the effort. [place] lifts or holds trunk or limbs and provides more than half the effort. 8-Lvwyeliip-aurzuk does ALL the effort. Patient does none of the effort to complete the activity. Or, the assistance of 2 or more helpers is required for the patient to complete the activity. If activity was not attempted, code reason: 7-Patient Refused. 9-Not Applicable-not attempted and the patient did not perform the activity before the current illness, exacerbation or injury. 10-Not Attempted due to Environmental Limitations-(lack of equipment, weather restraints, etc.). 88-Not Attempted due to Medical Conditions or Safety Concerns. Exercises Supine Ex: Ankle pumps, Quad Set, Glut sets, Heel Slides (AAROM) Supine Reps: 20 BLE PROM in all planes Treatments LE exercise and ROM Assessment Current Status: Poor Progress Patient is too drowsy to participate much in active exercise, PROM performed eventually. PT Short Term Goals Short Term Goals Time Frame: Mar 16, 2020 Roll Left & Right: 4 Sit to lyin Lying to sitting on side of be: 4 Sit to stand: 4 Chair/fwp-in-rlffo transfer: 4 Walk 10 feet: 4 Walk 50 feet with two turns: 4 PT Manager Book Goals Manager Book Goals PT Fci Goals Time Frame: Mar 30, 2020 Roll Left & Right (QC): 6 Sit to Lying (QC): 6 Lying-Sitting on Side/Bed(QC): 6 Sit to Stand (QC): 6 Chair/Xbt-rf-Jthlv Xfer(QC): 6 Toilet Transfer (QC): 6 Car Transfer (QC): 5 Does the Patient Walk: Yes Walk 10 feet (QC): 4 Walk 50ft with 2 Turns (QC): 4 Walk 150 ft (QC): 4 Walking 10ft on Uneven Surface: 4 1 Step (curb) (QC): 3 4 Steps (QC): 88 12 Steps (QC): 88 Picking up an Object (QC): 88 Wheel 50 feet with 2 turns (QC: 4 Wheel 150 feet: 4 PT Plan Problem List Problem List: Activity Tolerance, Functional Strength, Safety, Balance, Gait, Transfer, Bed Mobility, ROM Treatment/Plan Treatment Plan: Continue Plan of Care Treatment Plan: Bed Mobility, Education, Functional Activity Cristela, Functional Strength, Group Therapy, Gait, Safety, Therapeutic Exercise, Transfers Treatment Duration: Mar 30, 2020 Frequency: At least 5 of 7 days/Wk (IRF) Estimated Hrs Per Day: 1.5 hours per day Patient and/or Family Agrees t: Yes Safety Risks/Education Patient Education: Correct Positioning, Safety Issues Teaching Recipient: Patient Teaching Methods: Demonstration, Discussion Response to Teaching: Reinforcement Needed Time/GCodes Time In: 1400 Time Out: 1430 Total Billed Treatment Time: 30 Total Billed Treatment 1 visit EX 30MARI PRITCHARD PT Mar 10, 2020 14:20
--- NOTE | 2020-03-10 15:27 | NUR ---
"RD ASSESSMENT PMHx: COPD; hypercholesterolemia; HTN; GERD; hiatal hernia; PT INTERACTION: Pt was awake and pleasant during nutrition consult. Pt states she has been eating well since last assessment. Note avg PO intake 50% x3meal, per chart review. Pt states no issues with nausea, vomiting, constipation, or diarrhea since last assessment. Note last BM was 03/10 and pt currently on bowel regimen of colace BID, senna BID, and miralax BID, per chart review. ABNORMAL NUTRITION-RELATED LAB VALUES No recent lab values. Est. kcal needs: 1614-7567 kcal | 15-18 kcal/kg Est. Pro needs: 101-126 g Pro | 0.8-1.0 g Pro/kg PES STATEMENT: Inadequate oral intake (NI-2.1) related to loss of appetite as evidenced by pt interview, chart review, and avg PO intake 50% x3meal. INTERVENTION: Continue with current diet order of Heart Healthy diet, with modifier of DYS Mechanically Altered consistency. Pt may benefit from swallow evaluation to determine diet consistency modifications. Continue with current supplementation order of Ensure Enlive with meals TID, for increased kcal intake. Provides 350 kcal and 20 g Pro per serving. Encouraged pt to eat when able. Will continue to follow and reassess as pt needs, intake, and status change. Ivon Santana, MS RD LD"
[2020-03-10 17:06] VITALS: BP 131/73
[2020-03-10] MEDS: ALPRAZolam 0.25 MG (XANAX) TAB PO SCH (20:27)
[2020-03-11] MEDS: RT-ALBUTEROL/IPRATROPIUM 3 ML (DUONEB) VIAL INH SCH ×4 (02:14→21:37)
[2020-03-11 05:11] VITALS: BP 167/78
--- NOTE | 2020-03-11 07:02 | PM&R Progress Note ---
Subjective HPI/CC On Admission Date Seen by Provider: Mar 11, 2020 Time Seen by Provider: 12:30 Subjective/Events-last exam 03/11/20: biPAP at night Doing well BM++ Confused at night Leg pain is an issue, I reviewed prior studies MRI of l-spine could be the cause Patient settling in well Used biPAP last night ABG reviewed No pain reported except legs and Mirapex does not work so will maintained Xanax scheduled at night Checked meds and labs Conferred with RN Reviewed therapy notes Review of Systems General: Fatigue, Malaise Pulmonary: Dyspnea Musculoskeletal: leg pain Objective Exam Vital Signs Vital Signs Date Time Temp Pulse Resp B/P (MAP) Pulse Ox O2 Delivery O2 Flow Rate FiO2 03/11/20 17:57 37.1 88 20 136/72 (93) 93 Nasal Cannula 2.00 03/09/20 20:15 21 Capillary Refill : Less Than 3 Seconds General Appearance: No Apparent Distress, WD/WN, Chronically ill, Obese HEENT: PERRL/EOMI, Normal ENT Inspection, Pharynx Normal Neck: Full Range of Motion, Normal Inspection, Non Tender, Supple, Carotid Bruit Respiratory: Chest Non Tender, Lungs Clear, No Accessory Muscle Use, No Respiratory Distress, Decreased Breath Sounds Cardiovascular: Regular Rate, Rhythm, No Edema, No Gallop, No JVD, No Murmur, Normal Peripheral Pulses Gastrointestinal: Normal Bowel Sounds, No Organomegaly, No Pulsatile Mass, Non Tender, Soft Back: Normal Inspection, No CVA Tenderness, No Vertebral Tenderness Extremity: Normal Capillary Refill, Normal Inspection, Normal Range of Motion, Non Tender, No Calf Tenderness, No Pedal Edema Neurologic/Psychiatric: Alert, Oriented x3, No Motor/Sensory Deficits, Normal Mood/Affect, Depressed Affect, Motor Weakness (generalized all extremities) Skin: Normal Color, Warm/Dry Lymphatic: No Adenopathy Results/Procedures Lab Patient resulted labs reviewed. FIM Transfers Therapy Code Descriptions/Definitions Functional [place] Measure: 0=Not Assessed/NA 4=Minimal Assistance 1=Total Assistance 5=Supervision or Setup 2=Maximal Assistance 6=Modified [place] 3=Moderate Assistance 7=Complete IndependenceSCALE: Activities may be completed with or without assistive devices. 2-Sfdlnmcgpn-vxjraxr completes the activity by him/herself with no assistance from a helper. 5-Set-up or Clean-up Assistance-helper sets up or cleans up; patient completes activity. [place] assists only prior to or following the activity. 4-Supervision or Touching Assistance-helper provides verbal cues and/or touching/steadying and/or contact guard assistance as patient completes activity. Assistance may be provided throughout the activity or intermittently. 3-Partial/Moderate Assistance-helper does LESS THAN HALF the effort. [place] lifts, holds or supports trunk or limbs, but provides less than half the effort. 2-Substantial/Maximal Assistance-helper does MORE THAN HALF the effort. [place] lifts or holds trunk or limbs and provides more than half the effort. 4-Dvpyjtaxc-svvrsp does ALL the effort. Patient does none of the effort to complete the activity. Or, the assistance of 2 or more helpers is required for the patient to complete the activity. If activity was not attempted, code reason: 7-Patient Refused. 9-Not Applicable-not attempted and the patient did not perform the activity before the current illness, exacerbation or injury. 10-Not Attempted due to Environmental Limitations-(lack of equipment, weather restraints, etc.). 88-Not Attempted due to Medical Conditions or Safety Concerns. Roll Left to Right (QC): 3 Sit to Lying (QC): 3 Sit to Stand (QC): 3 Chair/Oyt-pb-Kfaca Xfer(QC): 3 Car Transfer (QC): 3 Gait Training Does the Patient Walk?: Yes Distance: 12'x2 Walk 10 feet (QC): 3 Walk 50 ft with 2 Turns(QC): 88 Walk 150 ft (QC): 88 Walking 10ft/uneven surface-QC: 88 Gait Assistive Device: FWW Wheelchair Training Does the Pt Use a Wheelchair?: Yes Wheel 50 ft with 2 turns (QC): 3 Wheel 150 ft (QC): 3 Type of Wheelchair: Manual Stair Training 1 Step (curb) (QC): 88 4 Steps (QC): 88 12 Steps (QC): 88 Balance Picking up an Object (QC): 88 ADL-Treatment Eating (QC): 6 (per pt.) Oral Hygiene (QC): 5 Shower/Bathe Self (QC): 3 (Pt. required assistance to cleanse rear erma area in shower, as well as bilateral feet. Pt. able to wash chest, arms, upper legs, and front erma area.) Upper Body Dressing (QC): 5 Lower Body Dressing (QC): 3 On/Off Footwear (QC): 2 Toileting Hygiene (QC): 3 Toilet Transfer (QC): 2 Assessment/Plan Assessment and Plan Assess & Plan/Chief Complaint Assessment: Critical illness myopathy Severe COPD OHS HTN Volume overload Delirium Plan: Home meds Monitor closely Nebs biPAP at night IRF protocol 03/10/20: Monitor leg pain RLS issues Monitor lungs biPAP at night 03/11/20: Monitor leg pain It may be radicular in source biPAP (1) Critical illness myopathy (2) Obesity hypoventilation syndrome (3) Delirium Status: Resolved Resolution Date/Time: 03/02/20 @ 10:50 (4) Debility Status: Acute (5) Acute renal failure (ARF) Status: Resolved Resolution Date/Time: 02/21/20 @ 13:40 (6) Influenza B Status: Acute (7) Septic shock Status: Resolved Resolution Date/Time: 02/28/20 @ 13:39 (8) Acute and chronic respiratory failure with hypoxia Status: Acute (9) Elevated brain natriuretic peptide (BNP) level Status: Acute DAVID THOMPSON DO Mar 11, 2020 07:02
[2020-03-11] MEDS: PANTOPRAZOLE 40 MG (PROTONIX) TAB PO SCH (08:48)
[2020-03-11] MEDS: ENOXAPARIN 40 MG/0.4 ML (LOVENOX) SYR SC SCH ×2 (08:48→21:13)
[2020-03-11] MEDS: LOSARTAN 25 MG (COZAAR) TAB PO SCH (08:48)
[2020-03-11] MEDS: NYSTATIN CREAM (MYCOSTATIN) 30 GM TUBE TP SCH ×3 (08:48→21:13)
[2020-03-11] MEDS: ASPIRIN 81 MG CHEW (CHILDREN'S ASA) PO SCH (08:49)
[2020-03-11] MEDS: meTOprolol TARTRATE 25 MG (LOPRESSOR) TABLET PO SCH ×2 (08:49→21:13)
[2020-03-11] MEDS: KCL 20 MEQ TAB (K-DUR) PO SCH ×2 (08:49→17:47)
[2020-03-11] MEDS: FUROSEMIDE 20 MG (LASIX) TAB PO SCH (08:49)
[2020-03-11] MEDS: polyethylene glycoL POWDER 17 GM (MIRALAX) PACK PO SCH ×2 (09:00→20:05)
[2020-03-11] MEDS: SENNA W/DOCUSATE (SENOKOT S) TABLET PO SCH ×2 (09:00→20:05)
[2020-03-11] MEDS: DOCUSATE SODIUM 100 MG (COLACE) CAP PO SCH ×2 (09:00→20:05)
--- NOTE | 2020-03-11 11:23 | Physical Therapy Daily Note ---
PT Daily Note-Current Subjective Pt in bed upon arrival. Pt agrees to PT tx. Pain Numeric Pain Scale: 8 Location: Lower Pain Description: Pressure Comment: Pt pain in BLE's Mental Status Patient Orientation: Person, Confused (Pt speaks to ESTIMATOR but makes no sense in the conversation), Place, M[place] Attachments: Oxygen Transfers SCALE: Activities may be completed with or without assistive devices. 4-Mzjtmptdpp-ydublin completes the activity by him/herself with no assistance from a helper. 5-Set-up or Clean-up Assistance-helper sets up or cleans up; patient completes activity. [place] assists only prior to or following the activity. 4-Supervision or Touching Assistance-helper provides verbal cues and/or touching/steadying and/or contact guard assistance as patient completes activity. Assistance may be provided throughout the activity or intermittently. 3-Partial/Moderate Assistance-helper does LESS THAN HALF the effort. [place] lifts, holds or supports trunk or limbs, but provides less than half the effort. 2-Substantial/Maximal Assistance-helper does MORE THAN HALF the effort. [place] lifts or holds trunk or limbs and provides more than half the effort. 8-Uxmlyfaxu-kppbam does ALL the effort. Patient does none of the effort to complete the activity. Or, the assistance of 2 or more helpers is required for the patient to complete the activity. If activity was not attempted, code reason: 7-Patient Refused. 9-Not Applicable-not attempted and the patient did not perform the activity before the current illness, exacerbation or injury. 10-Not Attempted due to Environmental Limitations-(lack of equipment, weather restraints, etc.). 88-Not Attempted due to Medical Conditions or Safety Concerns. Exercises Supine Ex: Ankle pumps, Heel Slides, Short Arc Quads, Hip abd/add Supine Reps: 15 (reps each) Standing: Hip Abduction Treatments Pt completes supine ex in bed; PROM/AROM/AAROM needed for different exercises. Pt remains in bed w/ call light and bedside table w/in reach and all needs met, at end of tx. Assessment Current Status: Poor Progress Pt mind set is all over the place. Pt conversation w/ ESTIMATOR makes sense at times, but the other times does not. Ex: Pt informed ESTIMATOR that pt went to the chiropractor d/t pt having issues w/ pt liver. Pt unable to maintain eye contact or keep eyes open very much. PT Short Term Goals Short Term Goals Time Frame: Mar 16, 2020 Roll Left & Right: 4 Sit to lyin Lying to sitting on side of be: 4 Sit to stand: 4 Chair/hsm-qj-pzuhg transfer: 4 Walk 10 feet: 4 Walk 50 feet with two turns: 4 PT Hoisting Laborer Goals Hoisting Laborer Goals PT Hoisting Laborer Goals Time Frame: Mar 30, 2020 Roll Left & Right (QC): 6 Sit to Lying (QC): 6 Lying-Sitting on Side/Bed(QC): 6 Sit to Stand (QC): 6 Chair/Alr-be-Ncgij Xfer(QC): 6 Toilet Transfer (QC): 6 Car Transfer (QC): 5 Does the Patient Walk: Yes Walk 10 feet (QC): 4 Walk 50ft with 2 Turns (QC): 4 Walk 150 ft (QC): 4 Walking 10ft on Uneven Surface: 4 1 Step (curb) (QC): 3 4 Steps (QC): 88 12 Steps (QC): 88 Picking up an Object (QC): 88 Wheel 50 feet with 2 turns (QC: 4 Wheel 150 feet: 4 PT Plan Problem List Problem List: Activity Tolerance, Functional Strength, Safety, Balance, Gait, Transfer, Bed Mobility, ROM Treatment/Plan Treatment Plan: Continue Plan of Care Treatment Plan: Bed Mobility, Education, Functional Activity Cristela, Functional Strength, Group Therapy, Gait, Safety, Therapeutic Exercise, Transfers Treatment Duration: Mar 30, 2020 Frequency: At least 5 of 7 days/Wk (IRF) Estimated Hrs Per Day: 1.5 hours per day Patient and/or Family Agrees t: Yes Safety Risks/Education Patient Education: Correct Positioning, Safety Issues Teaching Recipient: Patient Response to Teaching: Verbalize Understanding Time/GCodes Time In: 1029 Time Out: 1044 Total Billed Treatment Time: 15 Total Billed Treatment 1, Ex (15m) ALEXANDRA JONES ESTIMATOR Mar 11, 2020 11:23
[2020-03-11 17:57] VITALS: BP 136/72
[2020-03-11] MEDS: ALPRAZolam 0.25 MG (XANAX) TAB PO SCH (21:13)
[2020-03-11] MEDS: ACETAMINOPHEN 325 MG TABLET PO PRN (23:25)
[2020-03-12] MEDS: RT-ALBUTEROL/IPRATROPIUM 3 ML (DUONEB) VIAL INH SCH ×2 (03:07→15:51)
[2020-03-12 05:17] VITALS: BP 136/65
[2020-03-12 08:02] VITALS: BP 133/86
[2020-03-12] MEDS: SENNA W/DOCUSATE (SENOKOT S) TABLET PO SCH ×2 (08:07→20:37)
[2020-03-12] MEDS: DOCUSATE SODIUM 100 MG (COLACE) CAP PO SCH ×2 (08:07→20:37)
[2020-03-12] MEDS: PANTOPRAZOLE 40 MG (PROTONIX) TAB PO SCH (08:07)
[2020-03-12] MEDS: ASPIRIN 81 MG CHEW (CHILDREN'S ASA) PO SCH (08:07)
[2020-03-12] MEDS: KCL 20 MEQ TAB (K-DUR) PO SCH ×2 (08:07→17:46)
[2020-03-12] MEDS: LOSARTAN 25 MG (COZAAR) TAB PO SCH (08:07)
[2020-03-12] MEDS: meTOprolol TARTRATE 25 MG (LOPRESSOR) TABLET PO SCH ×2 (08:07→20:29)
[2020-03-12] MEDS: FUROSEMIDE 20 MG (LASIX) TAB PO SCH (08:07)
[2020-03-12] MEDS: ENOXAPARIN 40 MG/0.4 ML (LOVENOX) SYR SC SCH ×2 (08:07→20:29)
[2020-03-12] MEDS: NYSTATIN CREAM (MYCOSTATIN) 30 GM TUBE TP SCH ×3 (08:08→20:38)
[2020-03-12] MEDS: polyethylene glycoL POWDER 17 GM (MIRALAX) PACK PO SCH ×2 (09:20→20:37)
--- NOTE | 2020-03-12 11:28 | PM&R Progress Note ---
Subjective HPI/CC On Admission Date Seen by Provider: Mar 12, 2020 Time Seen by Provider: 14:00 Subjective/Events-last exam 03/12/20: Bipap at night most of the night BM+ Transfers pretty well 03/11/20: biPAP at night Doing well BM++ Confused at night Leg pain is an issue, I reviewed prior studies MRI of l-spine could be the cause Patient settling in well Used biPAP last night ABG reviewed No pain reported except legs and Mirapex does not work so will maintained Xanax scheduled at night Checked meds and labs Conferred with RN Reviewed therapy notes Review of Systems General: Fatigue Pulmonary: Dyspnea Objective Exam Vital Signs Vital Signs Date Time Temp Pulse Resp B/P (MAP) Pulse Ox O2 Delivery O2 Flow Rate FiO2 03/12/20 16:47 36.6 88 22 139/81 (100) 94 Nasal Cannula 2.00 03/09/20 20:15 21 Capillary Refill : Less Than 3 Seconds General Appearance: No Apparent Distress, WD/WN, Chronically ill, Obese HEENT: PERRL/EOMI, Normal ENT Inspection, Pharynx Normal Neck: Full Range of Motion, Normal Inspection, Non Tender, Supple, Carotid Bruit Respiratory: Chest Non Tender, Lungs Clear, No Accessory Muscle Use, No Respiratory Distress, Decreased Breath Sounds Cardiovascular: Regular Rate, Rhythm, No Edema, No Gallop, No JVD, No Murmur, Normal Peripheral Pulses Gastrointestinal: Normal Bowel Sounds, No Organomegaly, No Pulsatile Mass, Non Tender, Soft Back: Normal Inspection, No CVA Tenderness, No Vertebral Tenderness Extremity: Normal Capillary Refill, Normal Inspection, Normal Range of Motion, Non Tender, No Calf Tenderness, No Pedal Edema Neurologic/Psychiatric: Alert, Oriented x3, No Motor/Sensory Deficits, Normal Mood/Affect, Depressed Affect, Motor Weakness (generalized all extremities) Skin: Normal Color, Warm/Dry Lymphatic: No Adenopathy Results/Procedures Lab Patient resulted labs reviewed. FIM Transfers Therapy Code Descriptions/Definitions Functional [place] Measure: 0=Not Assessed/NA 4=Minimal Assistance 1=Total Assistance 5=Supervision or Setup 2=Maximal Assistance 6=Modified [place] 3=Moderate Assistance 7=Complete IndependenceSCALE: Activities may be completed with or without assistive devices. 0-Gtzkdlkcsg-rlhoutw completes the activity by him/herself with no assistance from a helper. 5-Set-up or Clean-up Assistance-helper sets up or cleans up; patient completes activity. [place] assists only prior to or following the activity. 4-Supervision or Touching Assistance-helper provides verbal cues and/or touching/steadying and/or contact guard assistance as patient completes activity. Assistance may be provided throughout the activity or intermittently. 3-Partial/Moderate Assistance-helper does LESS THAN HALF the effort. [place] lifts, holds or supports trunk or limbs, but provides less than half the effort. 2-Substantial/Maximal Assistance-helper does MORE THAN HALF the effort. [place] lifts or holds trunk or limbs and provides more than half the effort. 1-Biuwnuimi-ieyycj does ALL the effort. Patient does none of the effort to complete the activity. Or, the assistance of 2 or more helpers is required for the patient to complete the activity. If activity was not attempted, code reason: 7-Patient Refused. 9-Not Applicable-not attempted and the patient did not perform the activity before the current illness, exacerbation or injury. 10-Not Attempted due to Environmental Limitations-(lack of equipment, weather restraints, etc.). 88-Not Attempted due to Medical Conditions or Safety Concerns. Roll Left to Right (QC): 3 Sit to Lying (QC): 3 Sit to Stand (QC): 3 Chair/Wtt-ki-Hmksx Xfer(QC): 3 Car Transfer (QC): 3 Gait Training Does the Patient Walk?: Yes Distance: 12'x2 Walk 10 feet (QC): 3 Walk 50 ft with 2 Turns(QC): 88 Walk 150 ft (QC): 88 Walking 10ft/uneven surface-QC: 88 Gait Assistive Device: FWW Wheelchair Training Does the Pt Use a Wheelchair?: Yes Wheel 50 ft with 2 turns (QC): 3 Wheel 150 ft (QC): 3 Type of Wheelchair: Manual Stair Training 1 Step (curb) (QC): 88 4 Steps (QC): 88 12 Steps (QC): 88 Balance Picking up an Object (QC): 88 ADL-Treatment Eating (QC): 6 (per pt.) Oral Hygiene (QC): 5 Shower/Bathe Self (QC): 3 (Pt. required assistance to cleanse rear erma area in shower, as well as bilateral feet. Pt. able to wash chest, arms, upper legs, and front erma area.) Upper Body Dressing (QC): 5 Lower Body Dressing (QC): 3 On/Off Footwear (QC): 2 Toileting Hygiene (QC): 3 Toilet Transfer (QC): 2 Assessment/Plan Assessment and Plan Assess & Plan/Chief Complaint Assessment: Critical illness myopathy Severe COPD OHS HTN Volume overload Delirium Plan: Home meds Monitor closely Nebs biPAP at night IRF protocol 03/10/20: Monitor leg pain RLS issues Monitor lungs biPAP at night 03/11/20: Monitor leg pain It may be radicular in source biPAP 03/12/20: Leg pain seems improved BipAP at night (1) Critical illness myopathy (2) Obesity hypoventilation syndrome (3) Delirium Status: Resolved Resolution Date/Time: 03/02/20 @ 10:50 (4) Debility Status: Acute (5) Acute renal failure (ARF) Status: Resolved Resolution Date/Time: 02/21/20 @ 13:40 (6) Influenza B Status: Acute (7) Septic shock Status: Resolved Resolution Date/Time: 02/28/20 @ 13:39 (8) Acute and chronic respiratory failure with hypoxia Status: Acute (9) Elevated brain natriuretic peptide (BNP) level Status: Acute DAVID THOMSPON DO Mar 12, 2020 11:28
[2020-03-12] MEDS: ALPRAZolam 0.25 MG (XANAX) TAB PO SCH (12:47)
--- NOTE | 2020-03-12 15:30 | NUR ---
Patient moved from room 231 to room 233 due to a leaking toilet that maintenance was unable to repair at the time. Patient's family notified of room change and new direct phone number.
--- NOTE | 2020-03-12 16:17 | NUR ---
Noted that IV had accidently been d/c per patient. No drainage or redness noted.
[2020-03-12 16:47] VITALS: BP 139/81
[2020-03-12] MEDS: ACETAMINOPHEN 325 MG TABLET PO PRN (23:32)
[2020-03-12] MEDS: ALPRAZolam 0.25 MG (XANAX) TAB PO PRN (23:32)
[2020-03-13 05:21] VITALS: BP 144/88
--- NOTE | 2020-03-13 05:46 | PM&R Progress Note ---
Subjective HPI/CC On Admission Date Seen by Provider: Mar 13, 2020 Time Seen by Provider: 09:00 Subjective/Events-last exam 03/13/20: Restless legs syndrome issues Spoke with the Pt in-depth regarding the MRI she had that could cause the radiucular symptoms she is having Overall doing very well otherwise 03/12/20: Bipap at night most of the night BM+ Transfers pretty well 03/11/20: biPAP at night Doing well BM++ Confused at night Leg pain is an issue, I reviewed prior studies MRI of l-spine could be the cause Patient settling in well Used biPAP last night ABG reviewed No pain reported except legs and Mirapex does not work so will maintained Xanax scheduled at night Checked meds and labs Conferred with RN Reviewed therapy notes Review of Systems Pulmonary: Dyspnea Musculoskeletal: leg pain Objective Exam Vital Signs Vital Signs Date Time Temp Pulse Resp B/P (MAP) Pulse Ox O2 Delivery O2 Flow Rate FiO2 03/14/20 02:34 98 Nasal Cannula 2.00 03/13/20 16:14 36.7 82 20 133/78 (96) 03/09/20 20:15 21 Capillary Refill : Less Than 3 Seconds General Appearance: No Apparent Distress, WD/WN, Chronically ill, Obese HEENT: PERRL/EOMI, Normal ENT Inspection, Pharynx Normal Neck: Full Range of Motion, Normal Inspection, Non Tender, Supple, Carotid Bruit Respiratory: Chest Non Tender, Lungs Clear, No Accessory Muscle Use, No Respiratory Distress, Decreased Breath Sounds Cardiovascular: Regular Rate, Rhythm, No Edema, No Gallop, No JVD, No Murmur, Normal Peripheral Pulses Gastrointestinal: Normal Bowel Sounds, No Organomegaly, No Pulsatile Mass, Non Tender, Soft Back: Normal Inspection, No CVA Tenderness, No Vertebral Tenderness Extremity: Normal Capillary Refill, Normal Inspection, Normal Range of Motion, Non Tender, No Calf Tenderness, No Pedal Edema Neurologic/Psychiatric: Alert, Oriented x3, No Motor/Sensory Deficits, Normal Mood/Affect, Depressed Affect, Motor Weakness (generalized all extremities) Skin: Normal Color, Warm/Dry Lymphatic: No Adenopathy Results/Procedures Lab Laboratory Tests 03/13/20 06:12 Patient resulted labs reviewed. FIM Transfers Therapy Code Descriptions/Definitions Functional [place] Measure: 0=Not Assessed/NA 4=Minimal Assistance 1=Total Assistance 5=Supervision or Setup 2=Maximal Assistance 6=Modified [place] 3=Moderate Assistance 7=Complete IndependenceSCALE: Activities may be completed with or without assistive devices. 0-Ffgsyfecjl-zfgvsxf completes the activity by him/herself with no assistance from a helper. 5-Set-up or Clean-up Assistance-helper sets up or cleans up; patient completes activity. [place] assists only prior to or following the activity. 4-Supervision or Touching Assistance-helper provides verbal cues and/or touching/steadying and/or contact guard assistance as patient completes activity. Assistance may be provided throughout the activity or intermittently. 3-Partial/Moderate Assistance-helper does LESS THAN HALF the effort. [place] lifts, holds or supports trunk or limbs, but provides less than half the effort. 2-Substantial/Maximal Assistance-helper does MORE THAN HALF the effort. [place] lifts or holds trunk or limbs and provides more than half the effort. 6-Onldajluj-moxwar does ALL the effort. Patient does none of the effort to complete the activity. Or, the assistance of 2 or more helpers is required for the patient to complete the activity. If activity was not attempted, code reason: 7-Patient Refused. 9-Not Applicable-not attempted and the patient did not perform the activity before the current illness, exacerbation or injury. 10-Not Attempted due to Environmental Limitations-(lack of equipment, weather restraints, etc.). 88-Not Attempted due to Medical Conditions or Safety Concerns. Roll Left to Right (QC): 3 Sit to Lying (QC): 3 Sit to Stand (QC): 3 Chair/Jjj-os-Ciomn Xfer(QC): 3 Car Transfer (QC): 3 Gait Training Does the Patient Walk?: Yes Distance: 12'x2 Walk 10 feet (QC): 3 Walk 50 ft with 2 Turns(QC): 88 Walk 150 ft (QC): 88 Walking 10ft/uneven surface-QC: 88 Gait Assistive Device: FWW Wheelchair Training Does the Pt Use a Wheelchair?: Yes Wheel 50 ft with 2 turns (QC): 3 Wheel 150 ft (QC): 3 Type of Wheelchair: Manual Stair Training 1 Step (curb) (QC): 88 4 Steps (QC): 88 12 Steps (QC): 88 Balance Picking up an Object (QC): 88 ADL-Treatment Eating (QC): 6 (per pt.) Oral Hygiene (QC): 5 Shower/Bathe Self (QC): 3 (Pt. required assistance to cleanse rear erma area in shower, as well as bilateral feet. Pt. able to wash chest, arms, upper legs, and front erma area.) Upper Body Dressing (QC): 5 Lower Body Dressing (QC): 3 On/Off Footwear (QC): 2 Toileting Hygiene (QC): 3 Toilet Transfer (QC): 2 Assessment/Plan Assessment and Plan Assess & Plan/Chief Complaint Assessment: Critical illness myopathy Severe COPD OHS HTN Volume overload Delirium Plan: Home meds Monitor closely Nebs biPAP at night IRF protocol 03/10/20: Monitor leg pain RLS issues Monitor lungs biPAP at night 03/11/20: Monitor leg pain It may be radicular in source biPAP 03/12/20: Leg pain seems improved BipAP at night 03/13/20: O2 at night when she refuses biPAP Leg pain management (1) Critical illness myopathy (2) Obesity hypoventilation syndrome (3) Delirium Status: Resolved Resolution Date/Time: 03/02/20 @ 10:50 (4) Debility Status: Acute (5) Acute renal failure (ARF) Status: Resolved Resolution Date/Time: 02/21/20 @ 13:40 (6) Influenza B Status: Acute (7) Septic shock Status: Resolved Resolution Date/Time: 02/28/20 @ 13:39 (8) Acute and chronic respiratory failure with hypoxia Status: Acute (9) Elevated brain natriuretic peptide (BNP) level Status: Acute DAVID THOMPSON DO Mar 13, 2020 05:46
[2020-03-13 06:21] LABS: BASOPHILS # (AUTO) 0.1 10^3/uL (0.0-0.1); BASOPHILS % (AUTO) 1 % (0-10); EOSINOPHILS # (AUTO) 0.2 10^3/uL (0.0-0.3); EOSINOPHILS % (AUTO) 3 % (0-10); HEMATOCRIT 41 % (35-52); HEMOGLOBIN 11.9 g/dL (11.5-16.0); LYMPHOCYTES # (AUTO) 1.5 10^3/uL (1.0-4.0); LYMPHOCYTES % (AUTO) 24 % (12-44); MEAN CORPUSCULAR HEMOGLOBIN 25 pg (25-34); MEAN CORPUSCULAR HGB CONC 29 g/dL (32-36); MEAN CORPUSCULAR VOLUME 88 fL (80-99); MEAN PLATELET VOLUME 9.3 fL (9.0-12.2); MONOCYTES # (AUTO) 0.8 10^3/uL (0.0-1.0); MONOCYTES % (AUTO) 12 % (0-12); NEUTROPHILS # (AUTO) 3.9 10^3/uL (1.8-7.8); NEUTROPHILS % (AUTO) 60 % (42-75); PLATELET COUNT 259 10^3/uL (130-400); WHITE BLOOD COUNT 6.5 10^3/uL (4.3-11.0)
[2020-03-13] MEDS: ACETAMINOPHEN 325 MG TABLET PO PRN (06:24)
[2020-03-13 06:38] LABS: ALBUMIN 3.6 GM/DL (3.2-4.5); CHLORIDE 99 MMOL/L (98-107); SODIUM 141 MMOL/L (135-145)
[2020-03-13 06:40] LABS: CALCIUM 8.7 MG/DL (8.5-10.1)
[2020-03-13 06:41] LABS: GLUCOSE 110 MG/DL (70-105)
[2020-03-13 06:42] LABS: CARBON DIOXIDE 29 MMOL/L (21-32)
[2020-03-13 06:43] LABS: BILIRUBIN,TOTAL 0.6 MG/DL (0.1-1.0)
[2020-03-13 06:44] LABS: ALKALINE PHOSPHATASE 56 U/L (40-136); CREATININE SERUM 0.77 MG/DL (0.60-1.30); GFR ESTIMATED > 60
[2020-03-13 06:45] LABS: BUN/CREATININE RATIO 13
[2020-03-13 06:47] LABS: ALANINE AMINOTRANSFERASE 20 U/L (0-55)
[2020-03-13] MEDS: ASPIRIN 81 MG CHEW (CHILDREN'S ASA) PO SCH (09:02)
[2020-03-13] MEDS: PANTOPRAZOLE 40 MG (PROTONIX) TAB PO SCH (09:02)
[2020-03-13] MEDS: KCL 20 MEQ TAB (K-DUR) PO SCH ×2 (09:03→18:00)
[2020-03-13] MEDS: meTOprolol TARTRATE 25 MG (LOPRESSOR) TABLET PO SCH ×2 (09:03→21:00)
[2020-03-13] MEDS: LOSARTAN 25 MG (COZAAR) TAB PO SCH (09:03)
[2020-03-13] MEDS: FUROSEMIDE 20 MG (LASIX) TAB PO SCH (09:03)
[2020-03-13] MEDS: ENOXAPARIN 40 MG/0.4 ML (LOVENOX) SYR SC SCH ×2 (09:04→21:00)
[2020-03-13] MEDS: NYSTATIN CREAM (MYCOSTATIN) 30 GM TUBE TP SCH ×3 (09:29→21:00)
--- NOTE | 2020-03-13 10:00 | Occupational Ther Daily Note ---
OT Current Status-Daily Note Subjective Pt was in bed. Pt no c/o pain. Pt agreed to therapy. Pt stated wanting to leave Friday to be home with family on even if she has to go AMA. Mental Status/Objective Patient Orientation: Person, Place, Time, Situation Attachments: Oxygen (2 L) ADL-Treatment First treatment- Pt lying supine to EOB independently. Pt transferred from EOB to / CGA with verbal cues for hand placement and safety. Pt propelled self to bathroom using feet to guide self. Pt transferred from / to shower bench using grab bars to stabilize, CGA. Pt performed upper/lower body washing with set up. Pt cleansed perineal, buttocks area by self leaning side to side. Pt transferred [facility] bench [facility]. Pt propelled back into room using feet to guide. Pt don upper body clothing with set up. BLANTON helped thread pt feet into pants, will educate pt on AE. Pt had verbal cues on hand placement/pushing up from / for safety. BLANTON helped hike pants over pt hips. Pt refused oral care. Pt left in care with speech therapist. Second treatment- Pt in /. Pt don/doff socks using sock aid, required verbal cues. Pt was educated on using investigation lieutenant to don/doff pants. Pt demonstrated ability to perform lower body dressing with investigation lieutenant. Therapy Code Descriptions/Definitions Functional [place] Measure: 0=Not Assessed/NA 4=Minimal Assistance 1=Total Assistance 5=Supervision or Setup 2=Maximal Assistance 6=Modified [place] 3=Moderate Assistance 7=Complete IndependenceSCALE: Activities may be completed with or without assistive devices. 5-Pormjxsrwt-ywezfnv completes the activity by him/herself with no assistance from a helper. 5-Set-up or Clean-up Assistance-helper sets up or cleans up; patient completes activity. [place] assists only prior to or following the activity. 4-Supervision or Touching Assistance-helper provides verbal cues and/or touching/steadying and/or contact guard assistance as patient completes activity. Assistance may be provided throughout the activity or intermittently. 3-Partial/Moderate Assistance-helper does LESS THAN HALF the effort. [place] lifts, holds or supports trunk or limbs, but provides less than half the effort. 2-Substantial/Maximal Assistance-helper does MORE THAN HALF the effort. [place] lifts or holds trunk or limbs and provides more than half the effort. 8-Zulojfvbc-ttinqv does ALL the effort. Patient does none of the effort to complete the activity. Or, the assistance of 2 or more helpers is required for the patient to complete the activity. If activity was not attempted, code reason: 7-Patient Refused. 9-Not Applicable-not attempted and the patient did not perform the activity before the current illness, exacerbation or injury. 10-Not Attempted due to Environmental Limitations-(lack of equipment, weather restraints, etc.). 88-Not Attempted due to Medical Conditions or Safety Concerns. Oral Hygiene (QC): 7 Bathing Location: L Arm, R Arm, L Upper Leg, R Upper Leg, L Lower Leg (including foot), R Lower Leg (including foot), Chest, Abdomen, Buttocks, Perineal Area Shower/Bathe Self (QC): 5 Upper Body Dressing (QC): 5 Lower Body Dressing (QC): 2 On/Off Footwear: 5 Other Treatment Second treatment- Pt performed B UE exercise using light theraband completing 2 set of 10 reps, pt able to repeat 3/5 exercise by self. Skilled instructions required for technique and modification when necessary. Pt in w/c call light/phone in reach. All needs met. OT Short Term Goals Short Term Goals Time Frame: Mar 23, 2020 Eatin Oral hygiene: 4 Toileting hygiene: 3 (Min assist) Shower/bathe self: 3 (Min assist) Upper body dressin (min assist) Lower body dressin (Min assist) Putting on/taking off footwear: 3 (Min assist) OT Food And Nutrition Supervisor Goals Detention Goals Time Frame: Mar 30, 2020 Eating (QC): 6 Oral Hygiene (QC): 5 Toileting Hygiene (QC): 4 Shower/Bathe Self (QC): 4 Upper Body Dressing (QC): 5 Lower Body Dressing (QC): 4 On/Off Footwear (QC): 4 Additional Goals: 1-Demonstrate ADL Tasks, 2-Verbalize Understanding, 3- ImproveStrength/Cristela 1=Demonstrate adherence to instructed precautions during ADL tasks. 2=Patient will verbalize/demonstrate understanding of assistive devic es/modifications for ADL. 3=Patient will improve strength/tolerance for activity to enable patient to perform ADL's. OT Education/Plan Problem List/Assessment Assessment: Decreased Activ Tolerance, Decreased UE Strength, Impaired Funct Balance, Impaired Self-Care Skills Discharge Recommendations Plan/Recommendations: Continue POC Equpiment Recommendations-D/C: Hip Kit Treatment Plan/Plan of Care Patient would benefit from OT for education, treatment and training to promote independence in ADL's, mobility, safety and/or upper extremity function for ADL's. Plan of Care: ADL Retraining, Functional Mobility, Group Exercise/Act as Ind, UE Funct Exercise/Act Treatment Duration: Mar 30, 2020 Frequency: At least 5 of 7 days/Wk (IRF) Estimated Hrs Per Day: 1.5 hours per day Agreement: Yes Rehab Potential: Fair Time/GCodes Start Time: 09:00 Stop Time: 11:00 Total Time Billed (hr/min): 90 Billed Treatment Time 2 visits ADL 3 (45 mins) EX (20 mins), FA 2 (25 mins) 1st visit- [id number] 2nd visit- [id number] TETO TINOCO Mar 13, 2020 10:00
[2020-03-13] MEDS: RT-ALBUTEROL/IPRATROPIUM 3 ML (DUONEB) VIAL INH SCH ×2 (10:24→23:04)
--- NOTE | 2020-03-13 10:54 | ST Cognitive Linguistic Eval ---
Speech Evaluation-General Medical Diagnosis respiratory failure/hypercapnia/PETR Onset Date: Feb 16, 2020 Therapy Diagnosis Therapy Diagnosis: Cognitive-communication Referral Referring Physician: Dr. Randall Medical History Pertinent Medical History: COPD, HTN, Smoking Reviewed History: Yes Social History Current Living Status: Alone Speech PLF-Current Status Prior Level of Function Patient lived alone where she was independent for her daily needs. Subjective Patient was pleasant and cooperative with the cognitive assessment. Language Eval: Auditory Comprehends Simple Yes/No Ques: Functional Indent/Objects Multiple [place]: Functional Ident/Pics in Multiple [place]: Functional Follows 1-Step Commands: Functional Follows Complex Directions: Functional Follows General Conversations: Functional Language Eval: Verbal Language Completes Spontaneous Greeting: Functional Produces Auto, Serial Info: Functional Imitates Simple Words/Phrases: Functional Word Finding: Functional Requests Basic Needs: Functional States Basic Personal Info: Functional Expresses Complex Ideas: Functional Objective Cognitive Domain Attention: WNL Memory: WNL Problem Solving: Functional Executive Functions: WNL Visuospatial Skills: WNL Composite Severity Rating: WNL Clock Drawing Severity Rating: WNL Objective Formal/Standardized Tests [facility] Status ([facility]) Results 28/30, within normal limits Oral Motor/Speech Production Within Normal Limits Impression Patient is a pleasant 55 y/o female who was admitted to the hospital due to respiratory failure. The patient has been in the hospital for approximately a month. She was admitted to the ARU on 03/10/2020 for strengthening prior to returning home. The patient was given the SLUMS this date with a score of 28/30 obtained. This score is within the normal range of function. There are no further ST services needed at this time. Speech Patient Assess Expression of Ideas/Wants: Expression (4) Understanding Verbal Content: Understands (4) Brief Interview-Mental Status: Yes Repetition of Three Words: Three (3) Temporal Orientation: Year: Correct (3) Temporal Orientation: Month: Accurate within 5 days(2) Temporal Orientation: Day: Correct (1) Recall : Wear to say "Sock": Yes, no cue required (2) Recall : Color: Yes, no cue required (2) Recall : Bed: Yes,after cueing (1) Memory/Recall Ability: Current season, Location of own room, That he or she is in a hsp/hsp unit Speech-Plan Patient/Family Goals Patient/Family Goals: Patient plans on discharging to her daughter's home for a few days and then returning to her home with home health services. Treatment Plan Speech Therapy Treatment Plan: Discontinue ST Treatment Duration: Mar 13, 2020 Frequency: 1 time per week Estimated Hrs Per Day: .25 hour per day Rehab Potential: Fair Barriers to Learning: None identified Pt/Family Agrees to Plan: Yes Safety Risks/Education Teaching Recipient: Patient Teaching Methods: Discussion Response to Teaching: Verbalize Understanding Education Topics Provided: Safety within her room and upon her return home Time Speech Therapy Time In: 09:45 Speech Therapy Time Out: 10:00 Total Billed Time: 15 Billed Treatment Time 1, SPSNDCOMP KLEVER Mercado Mar 13, 2020 10:54
[2020-03-13] MEDS: SENNA W/DOCUSATE (SENOKOT S) TABLET PO SCH ×2 (11:56→21:00)
[2020-03-13] MEDS: DOCUSATE SODIUM 100 MG (COLACE) CAP PO SCH ×2 (11:56→21:00)
[2020-03-13] MEDS: polyethylene glycoL POWDER 17 GM (MIRALAX) PACK PO SCH ×2 (11:56→21:00)
[2020-03-13] MEDS: ALPRAZolam 0.25 MG (XANAX) TAB PO PRN (12:03)
--- NOTE | 2020-03-13 12:38 | Physical Therapy Daily Note ---
PT Daily Note-Current Subjective Patient in WC in her room pre tx, agrees to PT, has no complaints of pain. Appearance Patient in recliner post tx with nurse call, phone, tray, all needs met. Mental Status Patient Orientation: Person, Place, Situation Attachments: Oxygen Transfers SCALE: Activities may be completed with or without assistive devices. 9-Ntslzwehks-xuyhhpp completes the activity by him/herself with no assistance from a helper. 5-Set-up or Clean-up Assistance-helper sets up or cleans up; patient completes activity. [place] assists only prior to or following the activity. 4-Supervision or Touching Assistance-helper provides verbal cues and/or touching/steadying and/or contact guard assistance as patient completes activity. Assistance may be provided throughout the activity or intermittently. 3-Partial/Moderate Assistance-helper does LESS THAN HALF the effort. [place] lifts, holds or supports trunk or limbs, but provides less than half the effort. 2-Substantial/Maximal Assistance-helper does MORE THAN HALF the effort. [place] lifts or holds trunk or limbs and provides more than half the effort. 6-Aqnikrgtn-lzmimz does ALL the effort. Patient does none of the effort to complete the activity. Or, the assistance of 2 or more helpers is required for the patient to complete the activity. If activity was not attempted, code reason: 7-Patient Refused. 9-Not Applicable-not attempted and the patient did not perform the activity before the current illness, exacerbation or injury. 10-Not Attempted due to Environmental Limitations-(lack of equipment, weather restraints, etc.). 88-Not Attempted due to Medical Conditions or Safety Concerns. Sit to Stand (QC): 4 Chair/Fwb-ju-Jkirw Xfer(QC): 4 CGA, patient needs careful cues for hand placement, she has a lot of trouble understanding cues for safety Gait Training Distance: 20'x3 Walk 10 feet (QC): 4 Gait Persons Needed: 1 Gait Assistive Device: FWW slow but steady ambulation, no knee buckling Wheelchair Training Does the Pt Use a Wheelchair?: Yes Wheel 50 ft with 2 turns (QC): 4 Type of Wheelchair: Manual 50'x2 Exercises NuStep Minutes: 15 NuStep Workload: 4 Treatments WC mobility, ambulation, functional strengthening Assessment Current Status: Fair Progress improving ambulation but patient still fatigues quickly and needs many rest b reaks PT Short Term Goals Short Term Goals Time Frame: Mar 16, 2020 Roll Left & Right: 4 Sit to lyin Lying to sitting on side of be: 4 Sit to stand: 4 Chair/yhw-kq-qpzqy transfer: 4 Walk 10 feet: 4 Walk 50 feet with two turns: 4 PT Flute Grinder Goals Flute Grinder Goals PT Flute Grinder Goals Time Frame: Mar 30, 2020 Roll Left & Right (QC): 6 Sit to Lying (QC): 6 Lying-Sitting on Side/Bed(QC): 6 Sit to Stand (QC): 6 Chair/Ihb-qy-Iqbya Xfer(QC): 6 Toilet Transfer (QC): 6 Car Transfer (QC): 5 Does the Patient Walk: Yes Walk 10 feet (QC): 4 Walk 50ft with 2 Turns (QC): 4 Walk 150 ft (QC): 4 Walking 10ft on Uneven Surface: 4 1 Step (curb) (QC): 3 4 Steps (QC): 88 12 Steps (QC): 88 Picking up an Object (QC): 88 Wheel 50 feet with 2 turns (QC: 4 Wheel 150 feet: 4 PT Plan Problem List Problem List: Activity Tolerance, Functional Strength, Safety, Balance, Gait, Transfer, Bed Mobility, ROM Treatment/Plan Treatment Plan: Continue Plan of Care Treatment Plan: Bed Mobility, Education, Functional Activity Cristela, Functional Strength, Group Therapy, Gait, Safety, Therapeutic Exercise, Transfers Treatment Duration: Mar 30, 2020 Frequency: At least 5 of 7 days/Wk (IRF) Estimated Hrs Per Day: 1.5 hours per day Patient and/or Family Agrees t: Yes Safety Risks/Education Patient Education: Gait Training, Transfer Techniques, Correct Positioning, W/C Management, Safety Issues Teaching Recipient: Patient Teaching Methods: Demonstration, Discussion Response to Teaching: Reinforcement Needed Time/GCodes Time In: 1100 Time Out: 1200 Total Billed Treatment Time: 60 Total Billed Treatment 1 visit EX 15' FA 45' MARI LARRY PT Mar 13, 2020 12:38
--- NOTE | 2020-03-13 14:22 | Physical Therapy Daily Note ---
PT Daily Note-Current Subjective Patient in bed pre tx, agrees to PT, has no complaints of pain, states she needs to use the restroom. Appearance Patient in bed post tx with nurse call, phone, tray, all needs met, bed alarm on. Mental Status Patient Orientation: Person, Confused Attachments: Oxygen Transfers SCALE: Activities may be completed with or without assistive devices. 6-Rjchfxyldy-pxlmlev completes the activity by him/herself with no assistance from a helper. 5-Set-up or Clean-up Assistance-helper sets up or cleans up; patient completes activity. [place] assists only prior to or following the activity. 4-Supervision or Touching Assistance-helper provides verbal cues and/or touching/steadying and/or contact guard assistance as patient completes activity. Assistance may be provided throughout the activity or intermittently. 3-Partial/Moderate Assistance-helper does LESS THAN HALF the effort. [place] lifts, holds or supports trunk or limbs, but provides less than half the effort. 2-Substantial/Maximal Assistance-helper does MORE THAN HALF the effort. [place] lifts or holds trunk or limbs and provides more than half the effort. 5-Wocjiwnux-tbiqsy does ALL the effort. Patient does none of the effort to complete the activity. Or, the assistance of 2 or more helpers is required for the patient to complete the activity. If activity was not attempted, code reason: 7-Patient Refused. 9-Not Applicable-not attempted and the patient did not perform the activity before the current illness, exacerbation or injury. 10-Not Attempted due to Environmental Limitations-(lack of equipment, weather restraints, etc.). 88-Not Attempted due to Medical Conditions or Safety Concerns. Roll Left & Right (QC): 4 Sit to Lying (QC): 4 Lying to Sitting/Side of Bed(Q: 4 Sit to Stand (QC): 4 Chair/Wnt-fi-Yedqm Xfer(QC): 4 Gait Training Distance: 10'x2 Gait Persons Needed: 1 Gait Assistive Device: FWW Patient was barely able to get her pants down and sit on the toilet, her knees were buckling and when she was done her knees were buckling again when trying to pull her pants up Exercises Supine Ex: Ankle pumps, Quad Set, Glut sets, Short Arc Quads Supine Reps: 20 Treatments bed mobility and transfers, ambulation, LE exercise, toileting Assessment Current Status: Poor Progress weaker legs this afternoon, confused PT Short Term Goals Short Term Goals Time Frame: Mar 16, 2020 Roll Left & Right: 4 Sit to lyin Lying to sitting on side of be: 4 Sit to stand: 4 Chair/gnj-zm-xabgr transfer: 4 Walk 10 feet: 4 Walk 50 feet with two turns: 4 PT Correctional Program Specialist Goals Correctional Program Specialist Goals PT Correctional Program Specialist Goals Time Frame: Mar 30, 2020 Roll Left & Right (QC): 6 Sit to Lying (QC): 6 Lying-Sitting on Side/Bed(QC): 6 Sit to Stand (QC): 6 Chair/Gkh-tu-Ncpfb Xfer(QC): 6 Toilet Transfer (QC): 6 Car Transfer (QC): 5 Does the Patient Walk: Yes Walk 10 feet (QC): 4 Walk 50ft with 2 Turns (QC): 4 Walk 150 ft (QC): 4 Walking 10ft on Uneven Surface: 4 1 Step (curb) (QC): 3 4 Steps (QC): 88 12 Steps (QC): 88 Picking up an Object (QC): 88 Wheel 50 feet with 2 turns (QC: 4 Wheel 150 feet: 4 PT Plan Problem List Problem List: Activity Tolerance, Functional Strength, Safety, Balance, Gait, Transfer, Bed Mobility, ROM Treatment/Plan Treatment Plan: Continue Plan of Care Treatment Plan: Bed Mobility, Education, Functional Activity Cristela, Functional Strength, Group Therapy, Gait, Safety, Therapeutic Exercise, Transfers Treatment Duration: Mar 30, 2020 Frequency: At least 5 of 7 days/Wk (IRF) Estimated Hrs Per Day: 1.5 hours per day Patient and/or Family Agrees t: Yes Safety Risks/Education Patient Education: Gait Training, Transfer Techniques, Correct Positioning, Safety Issues Teaching Recipient: Patient Teaching Methods: Demonstration, Discussion Response to Teaching: Reinforcement Needed Time/GCodes Time In: 1400 Time Out: 1430 Total Billed Treatment Time: 30 Total Billed Treatment 1 visit EX 10' FA 20' MARI LARRY PT Mar 13, 2020 14:22
--- NOTE | 2020-03-13 16:13 | NUR ---
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 We was an inpatient at [facility] before transfer presenting 02/15 and intubated in the ED for respiratory failure with hypercapnia. Additional comorbidities are, in part, obesity hypoventilation syndrome, resolved delirium/disorientation, debility, ARF, Influenza B, severe COPD, HTN. Patient resided alone prior to admission, team has not yet determined whether patient may be able to immediately return to this status. PCP: DARRELL MORTON, Dr. Tasia Zheng MD PHARMACY: [facility] INSURANCE: Uninsured, Financial Services staff assisting with appropriate applications. DME: Patient has Home O2, she indicates no other DME at this time. FWW and wheelchair are anticipated needs. BARRIERS TO DISCHARGE: Patient continues, unrealistically, to request to discharge home. Her SLUMS score was within normal range; however, during our visit she exhibited slowed mentation and fact finding. Patient is frustrated by being in hospital since 02/15, understandably; however, returning home as before is not a safe plan at this juncture. Attempted to call daughters last Friday and no answer, no return calls. Early into ARU stay, continue to follow with all team partners. CONTACTS: Jazzmine Phelan, Daughter [address], [place] [phone] Matilda Haimleonardo, Daughter [phone] Patient indicated understanding of the purpose and process of weekly patient care conference and that her first review would be Friday, March 15.
[2020-03-13 16:14] VITALS: BP 133/78
--- NOTE | 2020-03-13 19:53 | NUR ---
Pt impulsive, stating that, "I'm going home tomorrow, I don't care what they say, my cat needs me."
[2020-03-13] MEDS: ALPRAZolam 0.25 MG (XANAX) TAB PO SCH (21:00)
[2020-03-14] MEDS: RT-ALBUTEROL/IPRATROPIUM 3 ML (DUONEB) VIAL INH SCH ×4 (02:34→19:01)
[2020-03-14] MEDS: ACETAMINOPHEN 325 MG TABLET PO PRN (02:54)
[2020-03-14 06:15] VITALS: BP 122/71
--- NOTE | 2020-03-14 08:36 | PM&R Progress Note ---
Subjective HPI/CC On Admission Date Seen by Provider: Mar 14, 2020 Time Seen by Provider: 08:45 Subjective/Events-last exam 03/14/20: Pt really wants to go home Refusing BiPAP so will remain on 2 L at night that she takes at home Overall doing pretty well but disposition is pending at this current time 03/13/20: Restless legs syndrome issues Spoke with the Pt in-depth regarding the MRI she had that could cause the r adiucular symptoms she is having Overall doing very well otherwise 03/12/20: Bipap at night most of the night BM+ Transfers pretty well 03/11/20: biPAP at night Doing well BM++ Confused at night Leg pain is an issue, I reviewed prior studies MRI of l-spine could be the cause Patient settling in well Used biPAP last night ABG reviewed No pain reported except legs and Mirapex does not work so will maintained Xanax scheduled at night Checked meds and labs Conferred with RN Reviewed therapy notes Review of Systems General: Fatigue Pulmonary: Dyspnea Objective Exam Vital Signs Vital Signs Date Time Temp Pulse Resp B/P (MAP) Pulse Ox O2 Delivery O2 Flow Rate FiO2 03/15/20 06:09 36.2 96 16 141/67 (91) 94 Nasal Cannula 2.00 03/09/20 20:15 21 Capillary Refill : Less Than 3 Seconds General Appearance: No Apparent Distress, WD/WN, Chronically ill, Obese HEENT: PERRL/EOMI, Normal ENT Inspection, Pharynx Normal Neck: Full Range of Motion, Normal Inspection, Non Tender, Supple, Carotid Bruit Respiratory: Chest Non Tender, Lungs Clear, No Accessory Muscle Use, No Respiratory Distress, Decreased Breath Sounds Cardiovascular: Regular Rate, Rhythm, No Edema, No Gallop, No JVD, No Murmur, Normal Peripheral Pulses Gastrointestinal: Normal Bowel Sounds, No Organomegaly, No Pulsatile Mass, Non Tender, Soft Back: Normal Inspection, No CVA Tenderness, No Vertebral Tenderness Extremity: Normal Capillary Refill, Normal Inspection, Normal Range of Motion, Non Tender, No Calf Tenderness, No Pedal Edema Neurologic/Psychiatric: Alert, Oriented x3, No Motor/Sensory Deficits, Normal Mood/Affect, Depressed Affect, Motor Weakness (generalized all extremities) Skin: Normal Color, Warm/Dry Lymphatic: No Adenopathy Results/Procedures Lab Patient resulted labs reviewed. FIM Transfers Therapy Code Descriptions/Definitions Functional [place] Measure: 0=Not Assessed/NA 4=Minimal Assistance 1=Total Assistance 5=Supervision or Setup 2=Maximal Assistance 6=Modified [place] 3=Moderate Assistance 7=Complete IndependenceSCALE: Activities may be completed with or without assistive devices. 5-Jjklpqdjcc-nlrphne completes the activity by him/herself with no assistance from a helper. 5-Set-up or Clean-up Assistance-helper sets up or cleans up; patient completes activity. [place] assists only prior to or following the activity. 4-Supervision or Touching Assistance-helper provides verbal cues and/or touching/steadying and/or contact guard assistance as patient completes activity. Assistance may be provided throughout the activity or intermittently. 3-Partial/Moderate Assistance-helper does LESS THAN HALF the effort. [place] lifts, holds or supports trunk or limbs, but provides less than half the effort. 2-Substantial/Maximal Assistance-helper does MORE THAN HALF the effort. [place] lifts or holds trunk or limbs and provides more than half the effort. 9-Ayffyqjff-lvvwhs does ALL the effort. Patient does none of the effort to complete the activity. Or, the assistance of 2 or more helpers is required for the patient to complete the activity. If activity was not attempted, code reason: 7-Patient Refused. 9-Not Applicable-not attempted and the patient did not perform the activity before the current illness, exacerbation or injury. 10-Not Attempted due to Environmental Limitations-(lack of equipment, weather restraints, etc.). 88-Not Attempted due to Medical Conditions or Safety Concerns. Roll Left to Right (QC): 4 Sit to Lying (QC): 4 Sit to Stand (QC): 4 Chair/Lls-eq-Vcnvl Xfer(QC): 4 Car Transfer (QC): 3 Gait Training Does the Patient Walk?: Yes Distance: 10'x2 Walk 10 feet (QC): 4 Walk 50 ft with 2 Turns(QC): 88 Walk 150 ft (QC): 88 Walking 10ft/uneven surface-QC: 88 Gait Persons Needed: 1 Gait Assistive Device: FWW Wheelchair Training Does the Pt Use a Wheelchair?: Yes Wheel 50 ft with 2 turns (QC): 4 Wheel 150 ft (QC): 3 Type of Wheelchair: Manual Stair Training 1 Step (curb) (QC): 88 4 Steps (QC): 88 12 Steps (QC): 88 Balance Picking up an Object (QC): 88 ADL-Treatment Eating (QC): 6 (per pt.) Oral Hygiene (QC): 7 Bathing Location: L Arm, R Arm, L Upper Leg, R Upper Leg, L Lower Leg (including foot), R Lower Leg (including foot), Chest, Abdomen, Buttocks, Perineal Area Shower/Bathe Self (QC): 5 Upper Body Dressing (QC): 5 Lower Body Dressing (QC): 2 On/Off Footwear (QC): 5 Toileting Hygiene (QC): 3 Toilet Transfer (QC): 2 Assessment/Plan Assessment and Plan Assess & Plan/Chief Complaint Assessment: Critical illness myopathy Severe COPD OHS HTN Volume overload Delirium Plan: Home meds Monitor closely Nebs biPAP at night IRF protocol 03/10/20: Monitor leg pain RLS issues Monitor lungs biPAP at night 03/11/20: Monitor leg pain It may be radicular in source biPAP 03/12/20: Leg pain seems improved BipAP at night 03/13/20: O2 at night when she refuses biPAP Leg pain management 03/14/20: O2 at night DC biPAP Monitor for falls (1) Critical illness myopathy (2) Obesity hypoventilation syndrome (3) Delirium Status: Resolved Resolution Date/Time: 03/02/20 @ 10:50 (4) Debility Status: Acute (5) Acute renal failure (ARF) Status: Resolved Resolution Date/Time: 02/21/20 @ 13:40 (6) Influenza B Status: Acute (7) Septic shock Status: Resolved Resolution Date/Time: 02/28/20 @ 13:39 (8) Acute and chronic respiratory failure with hypoxia Status: Acute (9) Elevated brain natriuretic peptide (BNP) level Status: Acute DAVID THOMPSON DO Mar 14, 2020 08:36
[2020-03-14] MEDS: DOCUSATE SODIUM 100 MG (COLACE) CAP PO SCH ×2 (08:47→20:59)
[2020-03-14] MEDS: FUROSEMIDE 20 MG (LASIX) TAB PO SCH (08:47)
[2020-03-14] MEDS: LOSARTAN 25 MG (COZAAR) TAB PO SCH (08:47)
[2020-03-14] MEDS: ENOXAPARIN 40 MG/0.4 ML (LOVENOX) SYR SC SCH ×2 (08:47→21:04)
[2020-03-14] MEDS: PANTOPRAZOLE 40 MG (PROTONIX) TAB PO SCH (08:47)
[2020-03-14] MEDS: ASPIRIN 81 MG CHEW (CHILDREN'S ASA) PO SCH (08:47)
[2020-03-14] MEDS: KCL 20 MEQ TAB (K-DUR) PO SCH ×2 (08:47→18:09)
[2020-03-14] MEDS: meTOprolol TARTRATE 25 MG (LOPRESSOR) TABLET PO SCH ×2 (08:47→21:04)
[2020-03-14] MEDS: NYSTATIN CREAM (MYCOSTATIN) 30 GM TUBE TP SCH ×3 (08:48→21:04)
[2020-03-14] MEDS: polyethylene glycoL POWDER 17 GM (MIRALAX) PACK PO SCH ×2 (09:23→20:59)
[2020-03-14] MEDS: SENNA W/DOCUSATE (SENOKOT S) TABLET PO SCH ×2 (09:24→20:59)
--- NOTE | 2020-03-14 11:30 | Occupational Ther Daily Note ---
OT Current Status-Daily Note Subjective Pt was in bed. Pt no c/o pain. Pt agreed to therapy. Pt stated she told doctor she is leaving tomorrow AMA if not discharged. Mental Status/Objective Patient Orientation: Person, Place, Time, Situation Attachments: Oxygen (2 L) ADL-Treatment Therapy Code Descriptions/Definitions Functional [place] Measure: 0=Not Assessed/NA 4=Minimal Assistance 1=Total Assistance 5=Supervision or Setup 2=Maximal Assistance 6=Modified [place] 3=Moderate Assistance 7=Complete IndependenceSCALE: Activities may be completed with or without assistive devices. 0-Eblhpnotoc-tlrpptx completes the activity by him/herself with no assistance from a helper. 5-Set-up or Clean-up Assistance-helper sets up or cleans up; patient completes activity. [place] assists only prior to or following the activity. 4-Supervision or Touching Assistance-helper provides verbal cues and/or touching/steadying and/or contact guard assistance as patient completes activity. Assistance may be provided throughout the activity or intermittently. 3-Partial/Moderate Assistance-helper does LESS THAN HALF the effort. [place] lifts, holds or supports trunk or limbs, but provides less than half the effort. 2-Substantial/Maximal Assistance-helper does MORE THAN HALF the effort. [place] lifts or holds trunk or limbs and provides more than half the effort. 5-Qgdpfoxfg-rajpfe does ALL the effort. Patient does none of the effort to complete the activity. Or, the assistance of 2 or more helpers is required for the patient to complete the activity. If activity was not attempted, code reason: 7-Patient Refused. 9-Not Applicable-not attempted and the patient did not perform the activity before the current illness, exacerbation or injury. 10-Not Attempted due to Environmental Limitations-(lack of equipment, weather restraints, etc.). 88-Not Attempted due to Medical Conditions or Safety Concerns. Oral Hygiene (QC): 7 Toileting Hygiene (QC): 6 Toilet Transfer (QC): 4 Other Treatment Pt lying supine to EOB by self. Pt refused to perform oral care. Pt used FWW to ambulate to restroom and transferred to toilet, CGA. Pt cleansed perineal area by self. Pt sit to stand using grab bars to stabilize transferred to w/c using FWW. Pt propelled to gym using feet to guide. Pt performed B UE strengthening activity while standing to work on standing balance, crossing midline for daily functional task. Pt was able to complete 2 sets of 8 rings. Pt required rest breaks. Pt sat in w/c while reaching for objects on floor completing 2 sets of 8 rings, 1 set of 8 cones to work trunk control for daily function task. Pt was educated on how to use video game repair technician to get objects from floor. Pt demonstrated ability to gather objects with video game repair technician completing 1 set of 8 rings. Pt propelled back to room using feet to guide. Pt in bed with call light/phone in reach. All needs met. OT Short Term Goals Short Term Goals Time Frame: Mar 23, 2020 Eatin Oral hygiene: 4 Toileting hygiene: 3 (Min assist) Shower/bathe self: 3 (Min assist) Upper body dressin (min assist) Lower body dressin (Min assist) Putting on/taking off footwear: 3 (Min assist) OT Java Lead Architect Goals Skilled Nursing Goals Time Frame: Mar 30, 2020 Eating (QC): 6 Oral Hygiene (QC): 5 Toileting Hygiene (QC): 4 Shower/Bathe Self (QC): 4 Upper Body Dressing (QC): 5 Lower Body Dressing (QC): 4 On/Off Footwear (QC): 4 Additional Goals: 1-Demonstrate ADL Tasks, 2-Verbalize Understanding, 3- ImproveStrength/Cristela 1=Demonstrate adherence to instructed precautions during ADL tasks. 2=Patient will verbalize/demonstrate understanding of assistive devices/modifications for ADL. 3=Patient will improve strength/tolerance for activity to enable patient to perform ADL's. OT Education/Plan Problem List/Assessment Assessment: Decreased Activ Tolerance, Decreased UE Strength, Impaired Funct Balance, Impaired Self-Care Skills Discharge Recommendations Plan/Recommendations: Continue POC Treatment Plan/Plan of Care Patient would benefit from OT for education, treatment and training to promote independence in ADL's, mobility, safety and/or upper extremity function for ADL's. Plan of Care: ADL Retraining, Functional Mobility, Group Exercise/Act as Ind, UE Funct Exercise/Act Treatment Duration: Mar 30, 2020 Frequency: At least 5 of 7 days/Wk (IRF) Estimated Hrs Per Day: 1.5 hours per day Agreement: Yes Rehab Potential: Fair Time/GCodes Start Time: 09:00 Stop Time: 10:00 Total Time Billed (hr/min): 60 Billed Treatment Time 1 visit- FA 2 (30 mins), EX 2 (30 mins) TETO TINOCO Mar 14, 2020 11:30
--- NOTE | 2020-03-14 11:54 | Physical Therapy Daily Note ---
PT Daily Note-Current Subjective Patient in restroom pre tx, agrees to PT, has no complaints of pain. Nurse assists patient with cleanup and she gets into WC. Appearance Patient sitting EOB post tx with nurse call, phone, tray, all needs met. Mental Status Patient Orientation: Person, Place, Situation Attachments: Oxygen Transfers SCALE: Activities may be completed with or without assistive devices. 8-Mbnmjkvcvp-amhmlfw completes the activity by him/herself with no assistance from a helper. 5-Set-up or Clean-up Assistance-helper sets up or cleans up; patient completes activity. [place] assists only prior to or following the activity. 4-Supervision or Touching Assistance-helper provides verbal cues and/or touching/steadying and/or contact guard assistance as patient completes activity. Assistance may be provided throughout the activity or intermittently. 3-Partial/Moderate Assistance-helper does LESS THAN HALF the effort. [place] lifts, holds or supports trunk or limbs, but provides less than half the effort. 2-Substantial/Maximal Assistance-helper does MORE THAN HALF the effort. [place] lifts or holds trunk or limbs and provides more than half the effort. 0-Jreeutnqi-aayycy does ALL the effort. Patient does none of the effort to com plete the activity. Or, the assistance of 2 or more helpers is required for the patient to complete the activity. If activity was not attempted, code reason: 7-Patient Refused. 9-Not Applicable-not attempted and the patient did not perform the activity before the current illness, exacerbation or injury. 10-Not Attempted due to Environmental Limitations-(lack of equipment, weather restraints, etc.). 88-Not Attempted due to Medical Conditions or Safety Concerns. Sit to Lying (QC): 4 Lying to Sitting/Side of Bed(Q: 4 Sit to Stand (QC): 4 Chair/Qgg-gi-Twcko Xfer(QC): 4 Improved sit to stand with using hands on armrests. Gait Training Distance: 40'x2, 20' Walk 10 feet (QC): 4 Gait Persons Needed: 1 Gait Assistive Device: FWW CGA, no knee buckling Wheelchair Training Does the Pt Use a Wheelchair?: Yes Wheel 50 ft with 2 turns (QC): 4 Wheel 150 ft (QC): 4 Type of Wheelchair: Manual SBA, very slow Exercises NuStep Minutes: 15 NuStep Workload: 4 Treatments transfers, WC mobility, ambulation, functional strengthening Assessment Current Status: Fair Progress improving endurance, no SOB with activity today PT Short Term Goals Short Term Goals Time Frame: Mar 16, 2020 Roll Left & Right: 4 Sit to lyin Lying to sitting on side of be: 4 Sit to stand: 4 Chair/mog-jv-hzejf transfer: 4 Walk 10 feet: 4 Walk 50 feet with two turns: 4 PT Retirement Goals Retirement Goals PT [place] Pointer Goals Time Frame: Mar 30, 2020 Roll Left & Right (QC): 6 Sit to Lying (QC): 6 Lying-Sitting on Side/Bed(QC): 6 Sit to Stand (QC): 6 Chair/Ejk-fn-Ykfzg Xfer(QC): 6 Toilet Transfer (QC): 6 Car Transfer (QC): 5 Does the Patient Walk: Yes Walk 10 feet (QC): 4 Walk 50ft with 2 Turns (QC): 4 Walk 150 ft (QC): 4 Walking 10ft on Uneven Surface: 4 1 Step (curb) (QC): 3 4 Steps (QC): 88 12 Steps (QC): 88 Picking up an Object (QC): 88 Wheel 50 feet with 2 turns (QC: 4 Wheel 150 feet: 4 PT Plan Problem List Problem List: Activity Tolerance, Functional Strength, Safety, Balance, Gait, Transfer, Bed Mobility, ROM Treatment/Plan Treatment Plan: Continue Plan of Care Treatment Plan: Bed Mobility, Education, Functional Activity Cristela, Functional Strength, Group Therapy, Gait, Safety, Therapeutic Exercise, Transfers Treatment Duration: Mar 30, 2020 Frequency: At least 5 of 7 days/Wk (IRF) Estimated Hrs Per Day: 1.5 hours per day Patient and/or Family Agrees t: Yes Safety Risks/Education Patient Education: Gait Training, Transfer Techniques, Correct Positioning, W/C Management, Safety Issues Teaching Recipient: Patient Teaching Methods: Demonstration, Discussion Response to Teaching: Reinforcement Needed Time/GCodes Time In: 1100 Time Out: 1200 Total Billed Treatment Time: 60 Total Billed Treatment 1 visit EX 15' FA 45' MARI LARRY PT Mar 14, 2020 11:54
--- NOTE | 2020-03-14 13:35 | Occupational Ther Daily Note ---
OT Current Status-Daily Note Subjective Pt was in bed upon arrival. Pt no c/o pain. Pt agreed to therapy. Mental Status/Objective Patient Orientation: Person, Place, Time, Situation Attachments: Oxygen (2 L) ADL-Treatment Therapy Code Descriptions/Definitions Functional [place] Measure: 0=Not Assessed/NA 4=Minimal Assistance 1=Total Assistance 5=Supervision or Setup 2=Maximal Assistance 6=Modified [place] 3=Moderate Assistance 7=Complete IndependenceSCALE: Activities may be completed with or without assistive devices. 7-Bpycqparpl-fnyeorv completes the activity by him/herself with no assistance from a helper. 5-Set-up or Clean-up Assistance-helper sets up or cleans up; patient completes activity. [place] assists only prior to or following the activity. 4-Supervision or Touching Assistance-helper provides verbal cues and/or touching/steadying and/or contact guard assistance as patient completes activity. Assistance may be provided throughout the activity or intermittently. 3-Partial/Moderate Assistance-helper does LESS THAN HALF the effort. [place] lifts, holds or supports trunk or limbs, but provides less than half the effort. 2-Substantial/Maximal Assistance-helper does MORE THAN HALF the effort. [place] lifts or holds trunk or limbs and provides more than half the effort. 4-Ocadkxeyc-lgdekg does ALL the effort. Patient does none of the effort to complete the activity. Or, the assistance of 2 or more helpers is required for the patient to complete the activity. If activity was not attempted, code reason: 7-Patient Refused. 9-Not Applicable-not attempted and the patient did not perform the activity before the current illness, exacerbation or injury. 10-Not Attempted due to Environmental Limitations-(lack of equipment, weather restraints, etc.). 88-Not Attempted due to Medical Conditions or Safety Concerns. Other Treatment Pt laying supine in bed. Pt performed B UE light theraband exercises skilled instruction required for technique and modification when necessary. Pt was able to recall 2/5 exercise by self. Pt completed 2 sets of 10 reps working on B UE strengthening for daily functional task. Rest breaks required. Pt call light/phone in reach. All needs met. OT Short Term Goals Short Term Goals Time Frame: Mar 23, 2020 Eatin Oral hygiene: 4 Toileting hygiene: 3 (Min assist) Shower/bathe self: 3 (Min assist) Upper body dressin (min assist) Lower body dressin (Min assist) Putting on/taking off footwear: 3 (Min assist) OT Baggage Agent Goals [facility] Goals Time Frame: Mar 30, 2020 Eating (QC): 6 Oral Hygiene (QC): 5 Toileting Hygiene (QC): 4 Shower/Bathe Self (QC): 4 Upper Body Dressing (QC): 5 Lower Body Dressing (QC): 4 On/Off Footwear (QC): 4 Additional Goals: 1-Demonstrate ADL Tasks, 2-Verbalize Understanding, 3-ImproveStrength/Cristela 1=Demonstrate adherence to instructed precautions during ADL tasks. 2=Patient will verbalize/demonstrate understanding of assistive devices/modifications for ADL. 3=Patient will improve strength/tolerance for activity to enable patient to perform ADL's. OT Education/Plan Problem List/Assessment Assessment: Decreased Activ Tolerance, Decreased UE Strength Discharge Recommendations Plan/Recommendations: Continue POC Treatment Plan/Plan of Care Patient would benefit from OT for education, treatment and training to promote independence in ADL's, mobility, safety and/or upper extremity function for ADL's. Plan of Care: ADL Retraining, Functional Mobility, Group Exercise/Act as Ind, UE Funct Exercise/Act Treatment Duration: Mar 30, 2020 Frequency: At least 5 of 7 days/Wk (IRF) Estimated Hrs Per Day: 1.5 hours per day Agreement: Yes Rehab Potential: Fair Time/GCodes Start Time: 13:00 Stop Time: 13:30 Total Time Billed (hr/min): 30 Billed Treatment Time 1 visit- EX 2 (30 mins) TETO TINOCO Mar 14, 2020 13:35
--- NOTE | 2020-03-14 14:34 | Physical Therapy Daily Note ---
PT Daily Note-Current Subjective Patient in bed pre tx, sleeping, drowsy upon waking, agrees to PT, has no complaints of pain. Appearance Patient in bed post tx with nurse call, phone, tray, bed alarm on. Mental Status Patient Orientation: Person, Place, Situation Attachments: Oxygen Transfers SCALE: Activities may be completed with or without assistive devices. 8-Uedmaxaxps-shmdlnq completes the activity by him/herself with no assistance from a helper. 5-Set-up or Clean-up Assistance-helper sets up or cleans up; patient completes activity. [place] assists only prior to or following the activity. 4-Supervision or Touching Assistance-helper provides verbal cues and/or touching/steadying and/or contact guard assistance as patient completes activity. Assistance may be provided throughout the activity or intermittently. 3-Partial/Moderate Assistance-helper does LESS THAN HALF the effort. [place] lifts, holds or supports trunk or limbs, but provides less than half the effort. 2-Substantial/Maximal Assistance-helper does MORE THAN HALF the effort. [place] lifts or holds trunk or limbs and provides more than half the effort. 6-Yxjaqmghl-gxdvlx does ALL the effort. Patient does none of the effort to complete the activity. Or, the assistance of 2 or more helpers is required for the patient to complete the activity. If activity was not attempted, code reason: 7-Patient Refused. 9-Not Applicable-not attempted and the patient did not perform the activity before the current illness, exacerbation or injury. 10-Not Attempted due to Environmental Limitations-(lack of equipment, weather restraints, etc.). 88-Not Attempted due to Medical Conditions or Safety Concerns. Roll Left & Right (QC): 6 Sit to Lying (QC): 6 Lying to Sitting/Side of Bed(Q: 6 Sit to Stand (QC): 4 Chair/Wkj-gp-Spbiq Xfer(QC): 4 Patient performs bed mobility and supine <-> sit with independence, she has some difficulty with it but can do it without assist. After getting up patient states she needs to use the restroom, WC propelled into restroom and she performed a stand pivot transfer with SBA to toilet and got her pants down on her own, patient was able to wipe herself and stand and get her pants up on her own and transfer with SBA back to . Wheelchair Training Does the Pt Use a Wheelchair?: Yes Wheel 50 ft with 2 turns (QC): 4 Wheel 150 ft (QC): 4 Type of Wheelchair: Manual Exercises Standing: Heel/toe raises, Mini squats Standing Reps: 10 Treatments bed mobility and transfers, toileting, LE strengthening Assessment Current Status: Fair Progress improved transfers PT Short Term Goals Short Term Goals Time Frame: Mar 16, 2020 Roll Left & Right: 4 Sit to lyin Lying to sitting on side of be: 4 Sit to stand: 4 Chair/ggb-vy-sphug transfer: 4 Walk 10 feet: 4 Walk 50 feet with two turns: 4 PT Intermediate Goals Intermediate Goals PT Intermediate Goals Time Frame: Mar 30, 2020 Roll Left & Right (QC): 6 Sit to Lying (QC): 6 Lying-Sitting on Side/Bed(QC): 6 Sit to Stand (QC): 6 Chair/Iii-bl-Xgolf Xfer(QC): 6 Toilet Transfer (QC): 6 Car Transfer (QC): 5 Does the Patient Walk: Yes Walk 10 feet (QC): 4 Walk 50ft with 2 Turns (QC): 4 Walk 150 ft (QC): 4 Walking 10ft on Uneven Surface: 4 1 Step (curb) (QC): 3 4 Steps (QC): 88 12 Steps (QC): 88 Picking up an Object (QC): 88 Wheel 50 feet with 2 turns (QC: 4 Wheel 150 feet: 4 PT Plan Problem List Problem List: Activity Tolerance, Functional Strength, Safety, Balance, Gait, Transfer, Bed Mobility, ROM Treatment/Plan Treatment Plan: Continue Plan of Care Treatment Plan: Bed Mobility, Education, Functional Activity Cristela, Functional Strength, Group Therapy, Gait, Safety, Therapeutic Exercise, Transfers Treatment Duration: Mar 30, 2020 Frequency: At least 5 of 7 days/Wk (IRF) Estimated Hrs Per Day: 1.5 hours per day Patient and/or Family Agrees t: Yes Safety Risks/Education Patient Education: Transfer Techniques, Correct Positioning, W/C Management, Safety Issues Teaching Recipient: Patient Teaching Methods: Demonstration, Discussion Response to Teaching: Reinforcement Needed Time/GCodes Time In: 1400 Time Out: 1430 Total Billed Treatment Time: 30 Total Billed Treatment 1 visit FA 30' MARI LARRY PT Mar 14, 2020 14:34
[2020-03-14 15:54] VITALS: BP 122/71
--- NOTE | 2020-03-14 16:33 | NUR ---
CM/SS CONCURRENT DOCUMENTATION Finally able to speak with daughter Jazzmine Phelan by phone. She indicated complete understanding that patient was requesting to come home and had adamantly stated she was leaving tomorrow. Patient's CMG LOS is for the range of 03/23/20, another week or at team discretion based on patient progress. Reviewed patient status with Jazzmine and that it would be most appropriate for patient not to be alone until such time as patient/family could feel more certain she was safe to do so. BARRIERS TO DISCHARGE PLANNING: Patient is uninsured. Patient current level of functioning and lack of family to stay with her past 03/19/20. Lacking of any funding source eliminates placement options SNF or [facility], would anticipate patient to adamantly refuse those options as well. Jazzmine is the only local child, she starts a new job on Tuesday 03/20. She can take patient to her home and be with her until Friday. Beyond that, care/support would be between Jazzmine, her boyfriend, and her cousin for intermittent visits. Patient has home O2, Jzazmine isn't sure what agency provides. It appears patient had [facility] at some point but does not at this time. She wishes to seek disability but had been denied in the past. DME: Has wheelchair and home O2, may need FWW.
[2020-03-14 18:34] VITALS: BP 122/79
[2020-03-14] MEDS: ALPRAZolam 0.25 MG (XANAX) TAB PO SCH (21:04)
[2020-03-15] MEDS: ACETAMINOPHEN 325 MG TABLET PO PRN (01:36)
[2020-03-15] MEDS: ALPRAZolam 0.25 MG (XANAX) TAB PO PRN (02:26)
[2020-03-15] MEDS: RT-ALBUTEROL/IPRATROPIUM 3 ML (DUONEB) VIAL INH SCH ×3 (02:47→18:39)
[2020-03-15 06:09] VITALS: BP 141/67
--- NOTE | 2020-03-15 07:11 | PM&R Progress Note ---
Subjective HPI/CC On Admission Date Seen by Provider: Mar 15, 2020 Time Seen by Provider: 09:30 Subjective/Events-last exam 03/15/20: DC is planned for Friday Pt wants to go home soon Daughter concerned about social situation Remains on 2 liters of O2 at home O2 maintained 03/14/20: Pt really wants to go home Refusing BiPAP so will remain on 2 L at night that she takes at home Overall doing pretty well but disposition is pending at this current time 03/13/20: Restless legs syndrome issues Spoke with the Pt in-depth regarding the MRI she had that could cause the radiucular symptoms she is having Overall doing very well otherwise 03/12/20: Bipap at night most of the night BM+ Transfers pretty well 03/11/20: biPAP at night Doing well BM++ Confused at night Leg pain is an issue, I reviewed prior studies MRI of l-spine could be the cause Patient settling in well Used biPAP last night ABG reviewed No pain reported except legs and Mirapex does not work so will maintained Xanax scheduled at night Checked meds and labs Conferred with RN Reviewed therapy notes Review of Systems General: Fatigue, Malaise Pulmonary: Dyspnea Objective Exam Vital Signs Vital Signs Date Time Temp Pulse Resp B/P (MAP) Pulse Ox O2 Delivery O2 Flow Rate FiO2 03/16/20 03:00 91 Nasal Cannula 2.00 03/15/20 18:53 36.7 90 16 127/67 (87) Capillary Refill : Less Than 3 Seconds General Appearance: No Apparent Distress, WD/WN, Chronically ill, Obese HEENT: PERRL/EOMI, Normal ENT Inspection, Pharynx Normal Neck: Full Range of Motion, Normal Inspection, Non Tender, Supple, Carotid Bruit Respiratory: Chest Non Tender, Lungs Clear, No Accessory Muscle Use, No Respiratory Distress, Decreased Breath Sounds Cardiovascular: Regular Rate, Rhythm, No Edema, No Gallop, No JVD, No Murmur, Normal Peripheral Pulses Gastrointestinal: Normal Bowel Sounds, No Organomegaly, No Pulsatile Mass, Non Tender, Soft Back: Normal Inspection, No CVA Tenderness, No Vertebral Tenderness Extremity: Normal Capillary Refill, Normal Inspection, Normal Range of Motion, Non Tender, No Calf Tenderness, No Pedal Edema Neurologic/Psychiatric: Alert, Oriented x3, No Motor/Sensory Deficits, Normal Mood/Affect, Depressed Affect, Motor Weakness (generalized all extremities) Skin: Normal Color, Warm/Dry Lymphatic: No Adenopathy Results/Procedures Lab Patient resulted labs reviewed. FIM Transfers Therapy Code Descriptions/Definitions Functional [place] Measure: 0=Not Assessed/NA 4=Minimal Assistance 1=Total Assistance 5=Supervision or Setup 2=Maximal Assistance 6=Modified [place] 3=Moderate Assistance 7=Complete IndependenceSCALE: Activities may be completed with or without assistive devices. 6-Iomlfhpxme-qyphipg completes the activity by him/herself with no assistance from a helper. 5-Set-up or Clean-up Assistance-helper sets up or cleans up; patient completes activity. [place] assists only prior to or following the activity. 4-Supervision or Touching Assistance-helper provides verbal cues and/or touching/steadying and/or contact guard assistance as patient completes activity. Assistance may be provided throughout the activity or intermittently. 3-Partial/Moderate Assistance-helper does LESS THAN HALF the effort. [place] lifts, holds or supports trunk or limbs, but provides less than half the effort. 2-Substantial/Maximal Assistance-helper does MORE THAN HALF the effort. [place] lifts or holds trunk or limbs and provides more than half the effort. 7-Wrmvjuslp-ietoud does ALL the effort. Patient does none of the effort to complete the activity. Or, the assistance of 2 or more helpers is required for the patient to complete the activity. If activity was not attempted, code reason: 7-Patient Refused. 9-Not Applicable-not attempted and the patient did not perform the activity before the current illness, exacerbation or injury. 10-Not Attempted due to Environmental Limitations-(lack of equipment, weather restraints, etc.). 88-Not Attempted due to Medical Conditions or Safety Concerns. Roll Left to Right (QC): 6 Sit to Lying (QC): 6 Sit to Stand (QC): 4 Chair/Vmp-tl-Hsayl Xfer(QC): 4 Car Transfer (QC): 3 Gait Training Distance: 40'x2, 20' Walk 10 feet (QC): 4 Walk 50 ft with 2 Turns(QC): 88 Walk 150 ft (QC): 88 Walking 10ft/uneven surface-QC: 88 Gait Persons Needed: 1 Gait Assistive Device: FWW Wheelchair Training Does the Pt Use a Wheelchair?: Yes Wheel 50 ft with 2 turns (QC): 4 Wheel 150 ft (QC): 4 Type of Wheelchair: Manual Stair Training 1 Step (curb) (QC): 88 4 Steps (QC): 88 12 Steps (QC): 88 Balance Picking up an Object (QC): 88 ADL-Treatment Eating (QC): 6 (per pt.) Oral Hygiene (QC): 7 Bathing Location: L Arm, R Arm, L Upper Leg, R Upper Leg, L Lower Leg (including foot), R Lower Leg (including foot), Chest, Abdomen, Buttocks, Perineal Area Shower/Bathe Self (QC): 5 Upper Body Dressing (QC): 5 Lower Body Dressing (QC): 2 On/Off Footwear (QC): 5 Toileting Hygiene (QC): 6 Toilet Transfer (QC): 4 Assessment/Plan Assessment and Plan Assess & Plan/Chief Complaint Assessment: Critical illness myopathy Severe COPD OHS HTN Volume overload Delirium Plan: Home meds Monitor closely Nebs biPAP at night IRF protocol 03/10/20: Monitor leg pain RLS issues Monitor lungs biPAP at night 03/11/20: Monitor leg pain It may be radicular in source biPAP 03/12/20: Leg pain seems improved BipAP at night 03/13/20: O2 at night when she refuses biPAP Leg pain management 03/14/20: O2 at night DC biPAP Monitor for falls 03/15/20: Maintain O2 Monitor leg pain DC Friday (1) Critical illness myopathy (2) Obesity hypoventilation syndrome (3) Delirium Status: Resolved Resolution Date/Time: 03/02/20 @ 10:50 (4) Debility Status: Acute (5) Acute renal failure (ARF) Status: Resolved Resolution Date/Time: 02/21/20 @ 13:40 (6) Influenza B Status: Acute (7) Septic shock Status: Resolved Resolution Date/Time: 02/28/20 @ 13:39 (8) Acute and chronic respiratory failure with hypoxia Status: Acute (9) Elevated brain natriuretic peptide (BNP) level Status: Acute DAVID THOMPSON DO Mar 15, 2020 07:11
[2020-03-15] MEDS: LOSARTAN 25 MG (COZAAR) TAB PO SCH (08:20)
[2020-03-15] MEDS: meTOprolol TARTRATE 25 MG (LOPRESSOR) TABLET PO SCH ×2 (08:20→20:29)
[2020-03-15] MEDS: ASPIRIN 81 MG CHEW (CHILDREN'S ASA) PO SCH (08:21)
[2020-03-15] MEDS: DOCUSATE SODIUM 100 MG (COLACE) CAP PO SCH ×2 (08:21→20:32)
[2020-03-15] MEDS: KCL 20 MEQ TAB (K-DUR) PO SCH ×2 (08:21→17:33)
[2020-03-15] MEDS: polyethylene glycoL POWDER 17 GM (MIRALAX) PACK PO SCH ×2 (08:21→20:32)
[2020-03-15] MEDS: PANTOPRAZOLE 40 MG (PROTONIX) TAB PO SCH (08:21)
[2020-03-15] MEDS: ENOXAPARIN 40 MG/0.4 ML (LOVENOX) SYR SC SCH ×2 (08:22→20:29)
[2020-03-15] MEDS: NYSTATIN CREAM (MYCOSTATIN) 30 GM TUBE TP SCH ×3 (08:22→20:33)
[2020-03-15] MEDS: SENNA W/DOCUSATE (SENOKOT S) TABLET PO SCH ×2 (08:22→20:33)
[2020-03-15] MEDS: FUROSEMIDE 20 MG (LASIX) TAB PO SCH (08:24)
[2020-03-15 08:28] VITALS: BP 131/79
--- NOTE | 2020-03-15 10:10 | Physical Therapy Daily Note ---
PT Daily Note-Current Subjective Pt.in bed, states she is depressed and hardly wants t get out of bed and just needs to get out of here. Pt. states she has had long standing back issues which have led to leg weakness. Pain Location: Medial Location Body Site: Back Pain Description: Ache Mental Status Patient Orientation: Normal For Age Attachments: Oxygen (2L) Transfers SCALE: Activities may be completed with or without assistive devices. 5-Yhttrbmifu-dbswnwv completes the activity by him/herself with no assistance from a helper. 5-Set-up or Clean-up Assistance-helper sets up or cleans up; patient completes activity. [place] assists only prior to or following the activity. 4-Supervision or Touching Assistance-helper provides verbal cues and/or touching/steadying and/or contact guard assistance as patient completes activity. Assistance may be provided throughout the activity or intermittently. 3-Partial/Moderate Assistance-helper does LESS THAN HALF the effort. [place] lifts, holds or supports trunk or limbs, but provides less than half the effort. 2-Substantial/Maximal Assistance-helper does MORE THAN HALF the effort. [place] lifts or holds trunk or limbs and provides more than half the effort. 3-Nrakomizk-wxhagu does ALL the effort. Patient does none of the effort to complete the activity. Or, the assistance of 2 or more helpers is required for the patient to complete the activity. If activity was not attempted, code reason: 7-Patient Refused. 9-Not Applicable-not attempted and the patient did not perform the activity before the current illness, exacerbation or injury. 10-Not Attempted due to Environmental Limitations-(lack of equipment, weather restraints, etc.). 88-Not Attempted due to Medical Conditions or Safety Concerns. Roll Left & Right (QC): 6 Sit to Lying (QC): 6 Lying to Sitting/Side of Bed(Q: 6 Sit to Stand (QC): 6 Chair/Dmp-gy-Ugeht Xfer(QC): 4 Toilet Transfer (QC): 6 Car Transfer (QC): 5 Gait Training Does the Patient Walk?: Yes Walk 10 feet (QC): 4 Walk 50 ft with 2 Turns(QC): 4 Walk 150 ft (QC): 7 Gait Persons Needed: 1 Gait Assistive Device: FWW heavy wt bearing on FWW ambulated 60 ft with w/c to f/u and assist for O2 at 2L. Pt. walks slowly but no LOB Wheelchair Training Does the Pt Use a Wheelchair?: Yes Wheel 50 ft with 2 turns (QC): 5 Type of Wheelchair: Manual needs reminders to brake etc and for efficient safe turns etc Stair Training Stair Training: Handrails/: uses walker #of Steps: 2 1 Step (curb) (QC): 3 Stairs: Pattern: Step to needs instructed in sequence and support Exercises Supine Ex: Bridging, Ankle pumps, Quad Set, Rolling, Glut sets, Heel Slides, Short Arc Quads, Scooting, Straight leg raise, Hip abd/add Supine Reps: 12 indep SLR but with much effort, scoots self up in bed indep Assessment Current Status: Good Progress wants to DC, unsure of pts support system at home PT Short Term Goals Short Term Goals Time Frame: Mar 16, 2020 Roll Left & Right: 4 Sit to lyin Lying to sitting on side of be: 4 Sit to stand: 4 Chair/pdx-zw-nnqmd transfer: 4 Walk 10 feet: 4 Walk 50 feet with two turns: 4 PT Fpc Goals Fpc Goals PT Fpc Goals Time Frame: Mar 30, 2020 Roll Left & Right (QC): 6 Sit to Lying (QC): 6 Lying-Sitting on Side/Bed(QC): 6 Sit to Stand (QC): 6 Chair/Rxf-ye-Dvzkk Xfer(QC): 6 Toilet Transfer (QC): 6 Car Transfer (QC): 5 Does the Patient Walk: Yes Walk 10 feet (QC): 4 Walk 50ft with 2 Turns (QC): 4 Walk 150 ft (QC): 4 Walking 10ft on Uneven Surface: 4 1 Step (curb) (QC): 3 4 Steps (QC): 88 12 Steps (QC): 88 Picking up an Object (QC): 88 Wheel 50 feet with 2 turns (QC: 4 Wheel 150 feet: 4 PT Plan Treatment/Plan Treatment Plan: Continue Plan of Care Treatment Plan: Bed Mobility, Education, Functional Activity Cristela, Functional Strength, Group Therapy, Gait, Safety, Therapeutic Exercise, Transfers Treatment Duration: Mar 30, 2020 Frequency: At least 5 of 7 days/Wk (IRF) Estimated Hrs Per Day: 1.5 hours per day Patient and/or Family Agrees t: Yes Safety Risks/Education Patient Education: Gait Training, Transfer Techniques, Steps, Correct Positioning, W/C Management, Disease Process, Safety Issues Teaching Recipient: Patient Teaching Methods: Demonstration, Discussion Response to Teaching: Verbalize Understanding, Return Demonstration, Reinforcement Needed Time/GCodes Time In: 900 Time Out: 1000 Total Billed Treatment Time: 60 Total Billed Treatment 1,EX15m,GT15m,WC15m,FA15m VIRY ANDERSON CATCHER HELPER Mar 15, 2020 10:10
--- NOTE | 2020-03-15 11:55 | Occupational Ther Daily Note ---
OT Current Status-Daily Note Subjective Pt was in w/c upon arrival. Pt no c/o pain. Pt agreed to therapy. Pt continues to request to go home with or without family help. Mental Status/Objective Patient Orientation: Person, Place, Time, Situation Attachments: Oxygen (2 L) ADL-Treatment Pt agreed to shower. Pt propelled self to restroom. Pt used grab bars to pull self up/ stabilize while transferring into shower. Pt sat on shower bench to perform shower. Pt performed upper/lower body washing with set up. Pt cleansed buttocks, perineal area while sitting leaning side to side. Pt transferred from shower bench to w/c using grab bars to stabilize, SBA. Pt performed upper body dressing with set up. Pt performed lower body dressing using erp engineer to thread legs into pants, using grab bars to stabilize while hiking pants over hips by self. Pt propelled self to room. Used erp engineer to doff socks. Pt used sock aid to thread socks on to feet by self. Therapy Code Descriptions/Definitions Functional [place] Measure: 0=Not Assessed/NA 4=Minimal Assistance 1=Total Assistance 5=Supervision or Setup 2=Maximal Assistance 6=Modified [place] 3=Moderate Assistance 7=Complete IndependenceSCALE: Activities may be completed with or without assistive devices. 2-Kehzuytwnu-zfhrgcr completes the activity by him/herself with no assistance from a helper. 5-Set-up or Clean-up Assistance-helper sets up or cleans up; patient completes activity. [place] assists only prior to or following the activity. 4-Supervision or Touching Assistance-helper provides verbal cues and/or t ouching/steadying and/or contact guard assistance as patient completes activity. Assistance may be provided throughout the activity or intermittently. 3-Partial/Moderate Assistance-helper does LESS THAN HALF the effort. [place] lifts, holds or supports trunk or limbs, but provides less than half the effort. 2-Substantial/Maximal Assistance-helper does MORE THAN HALF the effort. [place] lifts or holds trunk or limbs and provides more than half the effort. 6-Pvnultarc-zwsrcj does ALL the effort. Patient does none of the effort to complete the activity. Or, the assistance of 2 or more helpers is required for the patient to complete the activity. If activity was not attempted, code reason: 7-Patient Refused. 9-Not Applicable-not attempted and the patient did not perform the activity before the current illness, exacerbation or injury. 10-Not Attempted due to Environmental Limitations-(lack of equipment, weather restraints, etc.). 88-Not Attempted due to Medical Conditions or Safety Concerns. Eating (QC): 6 (Per clinical judgement, pt able to complete own meal set up and uses regular utensils.) Oral Hygiene (QC): 6 (Using clinical judgment, pt able to complete oral care independently sitting at sink.) Bathing Location: L Arm, R Arm, L Upper Leg, R Upper Leg, L Lower Leg (including foot), R Lower Leg (including foot), Chest, Abdomen, Buttocks, Perineal Area Shower/Bathe Self (QC): 5 Upper Body Dressing (QC): 5 Lower Body Dressing (QC): 5 On/Off Footwear: 5 Toileting Hygiene (QC): 6 (Using grabbars to stabilize self while manipulating clothing. Leans side to side to cleanse buttocks sitting on toilet.) Toilet Transfer (QC): 4 (SBA using FWW and grabbars.) Other Treatment Pt propelled self to therapy gym. Pt performed B UE activity while standing to work on standing balance, eye hand coordination for daily functional task. Pt completed 2 sets of 12 hunt bags getting 11/12 in to bucket, one LOB. Recovery breaks required throughout session. Pt propelled back to room. Pt transferred to recliner from /[facility]. Heat placed on back call light/phone in reach. All needs met. Education OT Patient Education: Use of adapted equipment OT Short Term Goals Short Term Goals Time Frame: Mar 23, 2020 Eatin Oral hygiene: 4 Toileting hygiene: 3 (Min assist) Shower/bathe self: 3 (Min assist) Upper body dressin (min assist) Lower body dressin (Min assist) Putting on/taking off footwear: 3 (Min assist) OT Detention Goals Detention Goals Time Frame: Mar 30, 2020 Eating (QC): 6 (met) Oral Hygiene (QC): 5 (met) Toileting Hygiene (QC): 4 (met) Shower/Bathe Self (QC): 4 (met) Upper Body Dressing (QC): 5 (met) Lower Body Dressing (QC): 4 (met) On/Off Footwear (QC): 4 (met) Additional Goals: 1-Demonstrate ADL Tasks, 2-Verbalize Understanding, 3- ImproveStrength/Cristela 1=Demonstrate adherence to instructed precautions during ADL tasks. 2=Patient will verbalize/demonstrate understanding of assistive devices/modifications for ADL. 3=Patient will improve strength/tolerance for activity to enable patient to perform ADL's. OT Education/Plan Problem List/Assessment Assessment: Decreased Activ Tolerance, Decreased UE Strength, Impaired Funct Balance, Impaired Self-Care Skills Discharge Recommendations Plan/Recommendations: Continue POC Therapy Discharge Recommendati: Home & Family, Post Acute PT, Post Acute OT Equpiment Recommendations-D/C: Hip Kit Treatment Plan/Plan of Care Patient would benefit from OT for education, treatment and training to promote independence in ADL's, mobility, safety and/or upper extremity function for ADL's. Plan of Care: ADL Retraining, Functional Mobility, Group Exercise/Act as Ind, UE Funct Exercise/Act Treatment Duration: Mar 30, 2020 Frequency: At least 5 of 7 days/Wk (IRF) Estimated Hrs Per Day: 1.5 hours per day Agreement: Yes Rehab Potential: Fair Time/GCodes Start Time: 10:00 Stop Time: 11:30 Total Time Billed (hr/min): 90 Billed Treatment Time 1 visit- ADL 4 (60 mins), FA 2 ( 30 mins) TETO TINOCO Mar 15, 2020 11:55
--- NOTE | 2020-03-15 12:18 | Physical Therapy Daily Note ---
PT Daily Note-Current Subjective Pt. up in recliner agrees to gait and practice managing extended O2 tubing. Pain Numeric Pain Scale: 5-Moderate Pain Location: Medial Location Body Site: Back Pain Description: Ache Mental Status Attachments: Oxygen (2L) Transfers SCALE: Activities may be completed with or without assistive devices. 3-Swueqipsrx-xzgucrs completes the activity by him/herself with no assistance from a helper. 5-Set-up or Clean-up Assistance-helper sets up or cleans up; patient completes activity. [place] assists only prior to or following the activity. 4-Supervision or Touching Assistance-helper provides verbal cues and/or touching/steadying and/or contact guard assistance as patient completes activity. Assistance may be provided throughout the activity or intermittently. 3-Partial/Moderate Assistance-helper does LESS THAN HALF the effort. [place] lifts, holds or supports trunk or limbs, but provides less than half the effort. 2-Substantial/Maximal Assistance-helper does MORE THAN HALF the effort. [place] lifts or holds trunk or limbs and provides more than half the effort. 8-Qxspshndx-lcqhcv does ALL the effort. Patient does none of the effort to complete the activity. Or, the assistance of 2 or more helpers is required for the patient to complete the activity. If activity was not attempted, code reason: 7-Patient Refused. 9-Not Applicable-not attempted and the patient did not perform the activity before the current illness, exacerbation or injury. 10-Not Attempted due to Environmental Limitations-(lack of equipment, weather restraints, etc.). 88-Not Attempted due to Medical Conditions or Safety Concerns. sup to sit and sit to sup x 3 , sit to stand x6 all SBA Gait Training Does the Patient Walk?: Yes Gait Assistive Device: FWW 55ftx3 about room may turns with O2 tubing instructing pt in safe management of tubing as she walks. Pt. needed many reminders Exercises Supine Ex: Bridging, Ankle pumps, Quad Set, Rolling, Glut sets, Heel Slides, Short Arc Quads, Scooting, Straight leg raise, Hip abd/add Supine Reps: 10 (x2) Treatments toileted using extended O2 tubing with instruction , pt. managed clothing indep. Assessment Current Status: Good Progress PT Short Term Goals Short Term Goals Time Frame: Mar 16, 2020 Roll Left & Right: 4 Sit to lyin Lying to sitting on side of be: 4 Sit to stand: 4 Chair/cui-wp-yhvst transfer: 4 Walk 10 feet: 4 Walk 50 feet with two turns: 4 PT Staple Fiber Washer Goals Mcfp Goals PT Mcfp Goals Time Frame: Mar 30, 2020 Roll Left & Right (QC): 6 Sit to Lying (QC): 6 Lying-Sitting on Side/Bed(QC): 6 Sit to Stand (QC): 6 Chair/Bhw-nq-Uokcq Xfer(QC): 6 Toilet Transfer (QC): 6 Car Transfer (QC): 5 Does the Patient Walk: Yes Walk 10 feet (QC): 4 Walk 50ft with 2 Turns (QC): 4 Walk 150 ft (QC): 4 Walking 10ft on Uneven Surface: 4 1 Step (curb) (QC): 3 4 Steps (QC): 88 12 Steps (QC): 88 Picking up an Object (QC): 88 Wheel 50 feet with 2 turns (QC: 4 Wheel 150 feet: 4 PT Plan Treatment/Plan Treatment Plan: Continue Plan of Care Treatment Plan: Bed Mobility, Education, Functional Activity Cristela, Functional Strength, Group Therapy, Gait, Safety, Therapeutic Exercise, Transfers Treatment Duration: Mar 30, 2020 Frequency: At least 5 of 7 days/Wk (IRF) Estimated Hrs Per Day: 1.5 hours per day Patient and/or Family Agrees t: Yes Safety Risks/Education Patient Education: Gait Training, Transfer Techniques, Correct Positioning, Disease Process, Safety Issues Teaching Recipient: Patient Teaching Methods: Demonstration, Discussion Response to Teaching: Verbalize Understanding, Return Demonstration, Reinforcement Needed Time/GCodes Time In: 1140 Time Out: 1210 Total Billed Treatment Time: 30 Total Billed Treatment 1,GT20m,FA10 VIRY ANDERSON LENS INSERTER Mar 15, 2020 12:18
--- NOTE | 2020-03-15 15:34 | NUR ---
CM/SS PATIENT CARE CONFERENCE DISCHARGE PLANNING Patient, daughter Jazzmine and team agree to patient's adamant request to discharge on 03/17/20. Patient has reviewed and signed Summary, charted. HHC: Recommending RN PT OT, will need to be through [facility] due to patient's uninsured status. DME: Patient is established with [facility] for continuous O2, we will be requesting a [facility] roberto status. Patient's daughter will purchase a shower chair and she indicates she does have a wheelchair for patient's use. Finalize Friday.
[2020-03-15 18:53] VITALS: BP 127/67
[2020-03-15] MEDS: ALPRAZolam 0.25 MG (XANAX) TAB PO SCH (20:29)
[2020-03-16] MEDS: RT-ALBUTEROL/IPRATROPIUM 3 ML (DUONEB) VIAL INH SCH ×4 (02:59→18:44)
--- NOTE | 2020-03-16 06:12 | PM&R Progress Note ---
Subjective HPI/CC On Admission Date Seen by Provider: Mar 16, 2020 Time Seen by Provider: 09:30 Subjective/Events-last exam 03/16/20: DC tomorrow Home O2 evaluation today 03/15/20: DC is planned for Friday Pt wants to go home soon Daughter concerned about social situation Remains on 2 liters of O2 at home O2 maintained 03/14/20: Pt really wants to go home Refusing BiPAP so will remain on 2 L at night that she takes at home Overall doing pretty well but disposition is pending at this current time 03/13/20: Restless legs syndrome issues Spoke with the Pt in-depth regarding the MRI she had that could cause the radiucular symptoms she is having Overall doing very well otherwise 03/12/20: Bipap at night most of the night BM+ Transfers pretty well 03/11/20: biPAP at night Doing well BM++ Confused at night Leg pain is an issue, I reviewed prior studies MRI of l-spine could be the cause Patient settling in well Used biPAP last night ABG reviewed No pain reported except legs and Mirapex does not work so will maintained Xanax scheduled at night Checked meds and labs Conferred with RN Reviewed therapy notes Review of Systems General: Fatigue Objective Exam Vital Signs Vital Signs Date Time Temp Pulse Resp B/P (MAP) Pulse Ox O2 Delivery O2 Flow Rate FiO2 03/16/20 18:44 94 Nasal Cannula 2.00 03/16/20 18:02 36.8 88 20 121/56 (77) Capillary Refill : Less Than 3 Seconds General Appearance: No Apparent Distress, WD/WN, Chronically ill, Obese HEENT: PERRL/EOMI, Normal ENT Inspection, Pharynx Normal Neck: Full Range of Motion, Normal Inspection, Non Tender, Supple, Carotid Bruit Respiratory: Chest Non Tender, Lungs Clear, No Accessory Muscle Use, No Respiratory Distress, Decreased Breath Sounds Cardiovascular: Regular Rate, Rhythm, No Edema, No Gallop, No JVD, No Murmur, Normal Peripheral Pulses Gastrointestinal: Normal Bowel Sounds, No Organomegaly, No Pulsatile Mass, Non Tender, Soft Back: Normal Inspection, No CVA Tenderness, No Vertebral Tenderness Extremity: Normal Capillary Refill, Normal Inspection, Normal Range of Motion, Non Tender, No Calf Tenderness, No Pedal Edema Neurologic/Psychiatric: Alert, Oriented x3, No Motor/Sensory Deficits, Normal Mood/Affect, Depressed Affect, Motor Weakness (generalized all extremities) Skin: Normal Color, Warm/Dry Lymphatic: No Adenopathy Results/Procedures Lab Patient resulted labs reviewed. FIM Transfers Therapy Code Descriptions/Definitions Functional [place] Measure: 0=Not Assessed/NA 4=Minimal Assistance 1=Total Assistance 5=Supervision or Setup 2=Maximal Assistance 6=Modified [place] 3=Moderate Assistance 7=Complete IndependenceSCALE: Activities may be completed with or without assistive devices. 3-Vdolaepfxg-ebzyudq completes the activity by him/herself with no assistance from a helper. 5-Set-up or Clean-up Assistance-helper sets up or cleans up; patient completes activity. [place] assists only prior to or following the activity. 4-Supervision or Touching Assistance-helper provides verbal cues and/or touching/steadying and/or contact guard assistance as patient completes activity. Assistance may be provided throughout the activity or intermittently. 3-Partial/Moderate Assistance-helper does LESS THAN HALF the effort. [place] lifts, holds or supports trunk or limbs, but provides less than half the effort. 2-Substantial/Maximal Assistance-helper does MORE THAN HALF the effort. [place] lifts or holds trunk or limbs and provides more than half the effort. 3-Ifneogusf-liluqt does ALL the effort. Patient does none of the effort to complete the activity. Or, the assistance of 2 or more helpers is required for the patient to complete the activity. If activity was not attempted, code reason: 7-Patient Refused. 9-Not Applicable-not attempted and the patient did not perform the activity before the current illness, exacerbation or injury. 10-Not Attempted due to Environmental Limitations-(lack of equipment, weather restraints, etc.). 88-Not Attempted due to Medical Conditions or Safety Concerns. Roll Left to Right (QC): 6 Sit to Lying (QC): 6 Sit to Stand (QC): 6 Chair/Uav-hj-Nyarv Xfer(QC): 4 Car Transfer (QC): 5 Gait Training Does the Patient Walk?: Yes Distance: 40'x2, 20' Walk 10 feet (QC): 4 Walk 50 ft with 2 Turns(QC): 4 Walk 150 ft (QC): 7 Walking 10ft/uneven surface-QC: 88 Gait Persons Needed: 1 Gait Assistive Device: FWW Wheelchair Training Does the Pt Use a Wheelchair?: Yes Wheel 50 ft with 2 turns (QC): 5 Wheel 150 ft (QC): 4 Type of Wheelchair: Manual Stair Training Stair Training: Handrails/: uses walker #of Steps: 2 1 Step (curb) (QC): 3 4 Steps (QC): 88 12 Steps (QC): 88 Stairs: Pattern: Step to Balance Picking up an Object (QC): 88 ADL-Treatment Eating (QC): 6 (Per clinical judgement, pt able to complete own meal set up and uses regular utensils.) Oral Hygiene (QC): 6 (Using clinical judgment, pt able to complete oral care independently sitting at sink.) Bathing Location: L Arm, R Arm, L Upper Leg, R Upper Leg, L Lower Leg (including foot), R Lower Leg (including foot), Chest, Abdomen, Buttocks, Perineal Area Shower/Bathe Self (QC): 5 Upper Body Dressing (QC): 5 Lower Body Dressing (QC): 5 On/Off Footwear (QC): 5 Toileting Hygiene (QC): 6 (Using grabbars to stabilize self while manipulating clothing. Leans side to side to cleanse buttocks sitting on toilet.) Toilet Transfer (QC): 4 (SBA using FWW and grabbars.) Assessment/Plan Assessment and Plan Assess & Plan/Chief Complaint Assessment: Critical illness myopathy Severe COPD OHS HTN Volume overload Delirium Plan: Home meds Monitor closely Nebs biPAP at night IRF protocol 03/10/20: Monitor leg pain RLS issues Monitor lungs biPAP at night 03/11/20: Monitor leg pain It may be radicular in source biPAP 03/12/20: Leg pain seems improved BipAP at night 03/13/20: O2 at night when she refuses biPAP Leg pain management 03/14/20: O2 at night DC biPAP Monitor for falls 03/15/20: Maintain O2 Monitor leg pain DC Friday03/16/20: DC tomorrow Home O2 eval (1) Critical illness myopathy (2) Obesity hypoventilation syndrome (3) Delirium Status: Resolved Resolution Date/Time: 03/02/20 @ 10:50 (4) Debility Status: Acute (5) Acute renal failure (ARF) Status: Resolved Resolution Date/Time: 02/21/20 @ 13:40 (6) Influenza B Status: Acute (7) Septic shock Status: Resolved Resolution Date/Time: 02/28/20 @ 13:39 (8) Acute and chronic respiratory failure with hypoxia Status: Acute (9) Elevated brain natriuretic peptide (BNP) level Status: Acute DAVID THOMPSON DO Mar 16, 2020 06:12
[2020-03-16 06:31] VITALS: BP 123/68
[2020-03-16] MEDS: SENNA W/DOCUSATE (SENOKOT S) TABLET PO SCH ×2 (08:41→20:51)
[2020-03-16] MEDS: PANTOPRAZOLE 40 MG (PROTONIX) TAB PO SCH (08:41)
[2020-03-16] MEDS: ASPIRIN 81 MG CHEW (CHILDREN'S ASA) PO SCH (08:41)
[2020-03-16] MEDS: DOCUSATE SODIUM 100 MG (COLACE) CAP PO SCH ×2 (08:41→20:51)
[2020-03-16] MEDS: KCL 20 MEQ TAB (K-DUR) PO SCH ×2 (08:42→18:22)
[2020-03-16] MEDS: LOSARTAN 25 MG (COZAAR) TAB PO SCH (08:42)
[2020-03-16] MEDS: meTOprolol TARTRATE 25 MG (LOPRESSOR) TABLET PO SCH ×2 (08:42→20:40)
[2020-03-16] MEDS: FUROSEMIDE 20 MG (LASIX) TAB PO SCH (08:42)
[2020-03-16] MEDS: NYSTATIN CREAM (MYCOSTATIN) 30 GM TUBE TP SCH ×3 (08:42→20:51)
[2020-03-16] MEDS: polyethylene glycoL POWDER 17 GM (MIRALAX) PACK PO SCH ×2 (08:42→20:51)
[2020-03-16] MEDS: ENOXAPARIN 40 MG/0.4 ML (LOVENOX) SYR SC SCH ×2 (08:43→20:40)
--- NOTE | 2020-03-16 08:55 | Occupational Ther Daily Note ---
OT Current Status-Daily Note Subjective Pt sleeping in bed, difficult to wake and get motivated. Pt agrees to therapy. No c/o pain. Excited about going home tomorrow. Mental Status/Objective Patient Orientation: Person, Place, Time, Situation Attachments: Oxygen (2L) ADL-Treatment Pt declines shower, oral care and changing clothing today. Pt able to complete own set up for meal and uses regular utensils to eat. Pt able to sit EOB independently and reach to floor to pick sugar packet off of ground. Pt able to use large sock aide to don socks, independently. Pt declines needing toilet. Pt ambulated from bed to door with SBA using FWW. Pt then working on w/c mobility to <--> from therapy gym. Pt is able to propel w/c though slowly. In therapy gym, pt stood for 10 min to complete fine motor strengthening while working on activity tolerance and dynamic standing balance. Pt is remembering to lock w/c prior to transferring or bending over to pick something off of floor. Pt independently transferred from w/c to EOB. After session, pt sitting on EOB making a cup of coffee. Nrsg in room. All needs met in room. Therapy Code Descriptions/Definitions Functional [place] Measure: 0=Not Assessed/NA 4=Minimal Assistance 1=Total Assistance 5=Supervision or Setup 2=Maximal Assistance 6=Modified [place] 3=Moderate Assistance 7=Complete IndependenceSCALE: Activities may be completed with or without assistive devices. 4-Eaffdpfqfl-trvsfbh completes the activity by him/herself with no assistance from a helper. 5-Set-up or Clean-up Assistance-helper sets up or cleans up; patient completes activity. [place] assists only prior to or following the activity. 4-Supervision or Touching Assistance-helper provides verbal cues and/or touching/steadying and/or contact guard assistance as patient completes act ivity. Assistance may be provided throughout the activity or intermittently. 3-Partial/Moderate Assistance-helper does LESS THAN HALF the effort. [place] lifts, holds or supports trunk or limbs, but provides less than half the effort. 2-Substantial/Maximal Assistance-helper does MORE THAN HALF the effort. [place] lifts or holds trunk or limbs and provides more than half the effort. 4-Xntlaltip-npubbi does ALL the effort. Patient does none of the effort to complete the activity. Or, the assistance of 2 or more helpers is required for the patient to complete the activity. If activity was not attempted, code reason: 7-Patient Refused. 9-Not Applicable-not attempted and the patient did not perform the activity before the current illness, exacerbation or injury. 10-Not Attempted due to Environmental Limitations-(lack of equipment, weather restraints, etc.). 88-Not Attempted due to Medical Conditions or Safety Concerns. Eating (QC): 6 Oral Hygiene (QC): 7 Shower/Bathe Self (QC): 7 Upper Body Dressing (QC): 7 Lower Body Dressing (QC): 7 On/Off Footwear: 5 Toileting Hygiene (QC): 7 Toilet Transfer (QC): 7 OT Short Term Goals Short Term Goals Time Frame: Mar 23, 2020 Eatin Oral hygiene: 4 Toileting hygiene: 3 (Min assist) Shower/bathe self: 3 (Min assist) Upper body dressin (min assist) Lower body dressin (Min assist) Putting on/taking off footwear: 3 (Min assist) OT Mcc Goals Typesetters Printer Goals Time Frame: Mar 30, 2020 Eating (QC): 6 (met) Oral Hygiene (QC): 5 (met) Toileting Hygiene (QC): 4 (met) Shower/Bathe Self (QC): 4 (met) Upper Body Dressing (QC): 5 (met) Lower Body Dressing (QC): 4 (met) On/Off Footwear (QC): 4 (met) Additional Goals: 1-Demonstrate ADL Tasks, 2-Verbalize Understanding, 3- ImproveStrength/Cristela 1=Demonstrate adherence to instructed precautions during ADL tasks. 2=Patient will verbalize/demonstrate understanding of assistive devices/modifications for ADL. 3=Patient will improve strength/tolerance for activity to enable patient to perform ADL's. OT Education/Plan Problem List/Assessment Assessment: Decreased Activ Tolerance, Impaired Self-Care Skills Discharge Recommendations Plan/Recommendations: Continue POC Treatment Plan/Plan of Care Patient would benefit from OT for education, treatment and training to promote independence in ADL's, mobility, safety and/or upper extremity function for ADL 's. Plan of Care: ADL Retraining, Functional Mobility, Group Exercise/Act as Ind, UE Funct Exercise/Act Treatment Duration: Mar 30, 2020 Frequency: At least 5 of 7 days/Wk (IRF) Estimated Hrs Per Day: 1.5 hours per day Agreement: Yes Rehab Potential: Fair Time/GCodes Start Time: 07:48 Stop Time: 08:48 Total Time Billed (hr/min): 60 Billed Treatment Time 1 visit-FA 3 (50 min) EX 1 (10 min) TETO TINOCO Mar 16, 2020 08:55
--- NOTE | 2020-03-16 12:27 | Therapy Group Daily Note ---
Therapy Daily Group Note Patient Education Topic Home Safety, Exercises Exercises LE Seated Exercise, Stretching, UE Exercise Session Ratio (pt:therapist): 4:1 Goal of Session: Home Safety Strategies EDucation on home safety techniques Functional strengthening for improved functional mobility. Goal Met for this Session: Yes Pt Benefit of Group: Contributions to Others, Increased Functional Safety Interaction; pt was able to learn from the suggestions of others. She laughed and joked with others in group. Masks worn and social distancing was practiced. Other/Notes Pt interacted well and enjoyed chatting with others. Voiced that she did learn a few things she did not know. Start Time: 11:00 Stop Time: 12:00 Total Billed Treatment Time: 60 Total Billed Treatment visit GRP 60 TETO STINSON PT Mar 16, 2020 12:27
--- NOTE | 2020-03-16 12:42 | Physical Therapy Daily Note ---
PT Daily Note-Current Subjective Pt. in bed upon arrival, agreeable to therapy and states she is going home tomorrow. Mental Status Patient Orientation: Person, Place, Time, Situation Attachments: Oxygen (2L) Transfers SCALE: Activities may be completed with or without assistive devices. 5-Bfxyvibtkw-xaqzvnv completes the activity by him/herself with no assistance from a helper. 5-Set-up or Clean-up Assistance-helper sets up or cleans up; patient completes activity. [place] assists only prior to or following the activity. 4-Supervision or Touching Assistance-helper provides verbal cues and/or touching/steadying and/or contact guard assistance as patient completes activity. Assistance may be provided throughout the activity or intermittently. 3-Partial/Moderate Assistance-helper does LESS THAN HALF the effort. [place] lifts, holds or supports trunk or limbs, but provides less than half the effort. 2-Substantial/Maximal Assistance-helper does MORE THAN HALF the effort. [place] lifts or holds trunk or limbs and provides more than half the effort. 2-Nuhpuwwqb-jwugtx does ALL the effort. Patient does none of the effort to complete the activity. Or, the assistance of 2 or more helpers is required for the patient to complete the activity. If activity was not attempted, code reason: 7-Patient Refused. 9-Not Applicable-not attempted and the patient did not perform the activity before the current illness, exacerbation or injury. 10-Not Attempted due to Environmental Limitations-(lack of equipment, weather restraints, etc.). 88-Not Attempted due to Medical Conditions or Safety Concerns. Roll Left & Right (QC): 6 Sit to Lying (QC): 6 Lying to Sitting/Side of Bed(Q: 6 Sit to Stand (QC): 6 Chair/Lmj-ig-Kmngh Xfer(QC): 6 Toilet Transfer (QC): 6 Car Transfer (QC): 6 Weight Bearing Full Weight Bearing Full Weight Bearing Gait Training Does the Patient Walk?: Yes Distance: 200 ft Walk 10 feet (QC): 4 Walk 50 ft with 2 Turns(QC): 4 Walk 150 ft (QC): 4 Walking 10ft/uneven surface-QC: 4 Gait Persons Needed: 1 Gait Assistive Device: FWW therapist assist with O2 tank Wheelchair Training Does the Pt Use a Wheelchair?: No Wheel 50 ft with 2 turns (QC): 9 Wheel 150 ft (QC): 9 Stair Training Stair Training: Handrails/: 2 handrails #of Steps: 4 1 Step (curb) (QC): 4 4 Steps (QC): 4 12 Steps (QC): 88 Stairs: Pattern: Step to fatigues very quickly, unable to complete 12 steps safely Balance Picking up an Object (QC): 4 Exercises NuStep Minutes: 10 NuStep Workload: 4 Treatments transfers, gait, Nustep Assessment Current Status: Good Progress Pt. is overall steady with gait but does fatigue and leans heavily on walker when fatigued. Pt. is (I) with all transfers. She does require seated rest periods due to SOB throughout session. Pt. feels ready for discharge home tomorrow. Pt. seated in commons area post session with group therapy. PT Short Term Goals Short Term Goals Time Frame: Mar 16, 2020 Roll Left & Right: 4 Sit to lyin Lying to sitting on side of be: 4 Sit to stand: 4 Chair/pvw-nx-ucvbr transfer: 4 Walk 10 feet: 4 Walk 50 feet with two turns: 4 PT Price Economist Goals Price Economist Goals PT Chcf Goals Time Frame: Mar 30, 2020 Roll Left & Right (QC): 6 Sit to Lying (QC): 6 Lying-Sitting on Side/Bed(QC): 6 Sit to Stand (QC): 6 Chair/Zsb-zh-Qdbcv Xfer(QC): 6 Toilet Transfer (QC): 6 Car Transfer (QC): 5 Does the Patient Walk: Yes Walk 10 feet (QC): 4 Walk 50ft with 2 Turns (QC): 4 Walk 150 ft (QC): 4 Walking 10ft on Uneven Surface: 4 1 Step (curb) (QC): 3 4 Steps (QC): 88 12 Steps (QC): 88 Picking up an Object (QC): 88 Wheel 50 feet with 2 turns (QC: 4 Wheel 150 feet: 4 PT Plan Treatment/Plan Treatment Plan: Continue Plan of Care Treatment Plan: Bed Mobility, Education, Functional Activity Cristela, Functional Strength, Group Therapy, Gait, Safety, Therapeutic Exercise, Transfers Treatment Duration: Mar 30, 2020 Frequency: At least 5 of 7 days/Wk (IRF) Estimated Hrs Per Day: 1.5 hours per day Patient and/or Family Agrees t: Yes Time/GCodes Time In: 1000 Time Out: 1100 Total Billed Treatment Time: 60 Total Billed Treatment 1, GT 15', Ex 10', FA 35' ALFREDO INIGUEZ PT Mar 16, 2020 12:42
--- NOTE | 2020-03-16 16:36 | NUR ---
patient needs 2L oxygen continuously Addendum: 03/16/20 at 1636 by HARDY PATEL RT Amended: Links added.
[2020-03-16 18:02] VITALS: BP 121/56
--- NOTE | 2020-03-16 19:11 | NUR ---
Bedside report received from MAY DURAN, assume care of pt
[2020-03-16 20:35] VITALS: BP 119/63
[2020-03-16] MEDS: ALPRAZolam 0.25 MG (XANAX) TAB PO SCH (20:40)
--- NOTE | 2020-03-16 20:40 | NUR ---
Pt refused Colace, Miralax, Senokot & Mycostatin cream
[2020-03-16] MEDS: ZINC OXIDE 16% OINT (BUTT PASTE) 57 GM TUBE TOP PRN (20:45)
[2020-03-17] MEDS: RT-ALBUTEROL/IPRATROPIUM 3 ML (DUONEB) VIAL INH SCH ×2 (01:49→08:01)
[2020-03-17] MEDS: ACETAMINOPHEN 325 MG TABLET PO PRN (05:02)
--- NOTE | 2020-03-17 05:02 | NUR ---
C/o pain generalized pain level 7/10, Tylenol 650mg po given
[2020-03-17 05:38] VITALS: BP 115/68
--- NOTE | 2020-03-17 05:41 | NUR ---
pain level 4/10 on numeric scale
[2020-03-17] MEDS ORDERED: PANT40TA52 PO (06:49)
[2020-03-17] MEDS ORDERED: ALPR.25T PO (06:49)
[2020-03-17] MEDS ORDERED: ZINC28PA TOP (06:49)
[2020-03-17] MEDS ORDERED: LOSA25TA41 PO (06:49)
[2020-03-17] MEDS ORDERED: NYST15CR TP (06:49)
[2020-03-17] MEDS ORDERED: METO-333 PO (06:49)
--- NOTE | 2020-03-17 06:51 | D/C HH Face to Face Order ---
D/C Face to Face Orders Reconcile Patient Problems Problems Reviewed?: Yes Instructions for Patient Via [facility], Patient Instructions/FollowUp: [facility] 1 week Physician to follow Patient: [facility] Discharge Diet for Home: No Restrictions Patient Problems: COPD Respiratory failure Patient Data-Allergies,Ht & Wt Patient Allergies: Coded Allergies: No Known Drug Allergies (Unverified , 05/06/19) Height (Feet): 5 Height (Inches): 7.00 Weight (Pounds): 220 Weight (Ounces): 0.0 Home Health Need/Face to Face Date of Face to Face: Mar 17, 2020 Clinical Findings: Generalized weakness and fatigue, Muscle weakness, Shortness of breath I have seen Pt xqnz-co-dbmo: Yes Discharged To: Home Diagnosis/Conditions: COPD Patient is Homebound due to: [place] fall risk due to instabilty, Muscle weakness, Shortness of breath/distress Homebound Status Due to the above stated illness, injury or surgical procedure (medical co ndition or diagnosis) and associated clinical findings, the patient is homebound because of his/her inability to leave home except with aid of a supportive device and/or person AND leaving the home requires a considerable and taxing effort or is medically contraindicated. Pt req the following assistanc: Walker Home Health Nursing Orders Home Health Services Order: Nursing Services, Bobcat Operator-Evaluate & Treat, Physical Therapy-Evaluate & Treat Certify Stmt I certify that this patient is under my care and that I, a nurse practitioner or a physician; a ambulance assistant working with me, had a face to face encounter that - meets the physician face to face encounter requirements with this patient as dated. DAVID THOMPSON DO Mar 17, 2020 06:50
--- NOTE | 2020-03-17 06:51 | Discharge Summary ---
Diagnosis/Chief Complaint Date of Admission Mar 09, 2020 at 11:15 Date of Discharge Discharge Date: Mar 17, 2020 Discharge Diagnosis Assessment: Critical illness myopathy Severe COPD OHS HTN Volume overload Delirium Plan: Home meds Monitor closely Nebs biPAP at night IRF protocol 03/10/20: Monitor leg pain RLS issues Monitor lungs biPAP at night 03/11/20: Monitor leg pain It may be radicular in source biPAP 03/12/20: Leg pain seems improved BipAP at night 03/13/20: O2 at night when she refuses biPAP Leg pain management 03/14/20: O2 at night DC biPAP Monitor for falls 03/15/20: Maintain O2 Monitor leg pain DC Friday03/16/20: DC tomorrow Home O2 eval (1) Critical illness myopathy (2) Obesity hypoventilation syndrome (3) Delirium Status: Resolved Resolution Date/Time: 03/02/20 @ 10:50 (4) Debility Status: Acute (5) Acute renal failure (ARF) Status: Resolved Resolution Date/Time: 02/21/20 @ 13:40 (6) Influenza B Status: Acute (7) Septic shock Status: Resolved Resolution Date/Time: 02/28/20 @ 13:39 (8) Acute and chronic respiratory failure with hypoxia Status: Acute (9) Elevated brain natriuretic peptide (BNP) level Status: Acute Discharge Summary Discharge Physical Examination Allergies: Coded Allergies: No Known Drug Allergies (Unverified , 05/06/19) Vitals & I&Os Vital Signs Date Time Temp Pulse Resp B/P (MAP) Pulse Ox O2 Delivery O2 Flow Rate FiO2 03/17/20 11:17 37.0 80 18 115/68 95 Nasal Cannula 2.00 General Appearance: Alert, Oriented X3, Cooperative Respiratory: Clear to Auscultation Cardiovascular: Regular Rate Neuro: Normal Gait, Normal Speech, Strength at 5/5 X4 Ext Hospital Course Was the Problem List Reviewed?: Yes Long hospital course in IRF after severe respiratory failure. Patient was able to participate in al therapies and ultimately regain function and wean off biPAP and remain on O2 continuously. Labs remained stable and PLOF was independent with ADL's and ambulation without AD but at DC she was independent with the use of walker and required home O2 continuously. Labs (last 24 hrs) Laboratory Tests 03/09/20 15:35: Glucometer 94 11/19/20 20:00: Blood Gas Puncture Site LEFT RADIAL, Blood Gas Patient Temperature 37.2, Arterial Blood pH 7.46H, Arterial Blood Partial Pressure CO2 48H, Arterial Blood Partial Pressure O2 77L, Arterial Blood HCO3 33H, Arterial Blood Total CO2 34.8H , Arterial Blood Oxygen Saturation 96, Arterial Blood Base Excess 9.2H, [place]o Test POSITIVE, Blood Gas Ventilator Setting NO, Blood Gas Inspired Oxygen 2 03/09/20 20:09: Glucometer 93 03/10/20 06:41: Glucometer 88 03/10/20 10:56: Glucometer 94 03/13/20 06:12: White Blood Count 6.5, Red Blood Count 4.70, Hemoglobin 11.9, Hematocrit 41, Mean Corpuscular Volume 88, Mean Corpuscular Hemoglobin 25, Mean Corpuscular Hemoglobin Concent 29L, Red Cell Distribution Width 21.7H, Platelet Count 259, Mean Platelet Volume 9.3, Immature Granulocyte % (Auto) 1, Neutrophils (%) (Auto) 60, Lymphocytes (%) (Auto) 24, Monocytes (%) (Auto) 12, Eosinophils (%) (Auto) 3, Basophils (%) (Auto) 1, Neutrophils # (Auto) 3.9, Lymphocytes # (Auto) 1.5, Monocytes # (Auto) 0.8, Eosinophils # (Auto) 0.2, Basophils # (Auto) 0.1, Immature Granulocyte # (Auto) 0.0, Sodium Level 141, Potassium Level 4.0, Chloride Level 99, Carbon Dioxide Level 29, Anion Gap 13, Blood Urea Nitrogen 10, Creatinine 0.77, Estimat Glomerular Filtration Rate > 60, BUN/Creatinine Ratio 13, Glucose Level 110H, Calcium Level 8.7, Corrected Calcium 9.0, Total Bilirubin 0.6, Aspartate Amino Transf (AST/SGOT) 24, Alanine Aminotransferase (ALT/SGPT) 20, Alkaline Phosphatase 56, Total Protein 7.0, Albumin 3.6 Pending Labs Laboratory Tests 03/09/20 15:35: Glucometer 94 03/09/20 20:00: Blood Gas Puncture Site LEFT RADIAL, Blood Gas Patient Temperature 37.2, Arterial Blood pH 7.46, Arterial Blood Partial Pressure CO2 48, Arterial Blood Partial Pressure O2 77, Arterial Blood HCO3 33, Arterial Blood Total CO2 34.8, Arterial Blood Oxygen Saturation 96, Arterial Blood Base Excess 9.2, [place] Test POSITIVE, Blood Gas Ventilator Setting NO, Blood Gas Inspired Oxygen 2 03/09/20 20:09: Glucometer 93 03/10/20 06:41: Glucometer 88 03/10/20 10:56: Glucometer 94 03/13/20 06:12: White Blood Count 6.5, Red Blood Count 4.70, Hemoglobin 11.9, Hematocrit 41, Mean Corpuscular Volume 88, Mean Corpuscular Hemoglobin 25, Mean Corpuscular Hemoglobin Concent 29, Red Cell Distribution Width 21.7, Platelet Count 259, Mean Platelet Volume 9.3, Immature Granulocyte % (Auto) 1, Neutrophils (%) (Auto) 60, Lymphocytes (%) (Auto) 24, Monocytes (%) (Auto) 12, Eosinophils (%) (Auto) 3, Basophils (%) (Auto) 1, Neutrophils # (Auto) 3.9, Lymphocytes # (Auto) 1.5, Monocytes # (Auto) 0.8, Eosinophils # (Auto) 0.2, Basophils # (Auto) 0.1, Immature Granulocyte # (Auto) 0.0, Sodium Level 141, Potassium Level 4.0, Chloride Level 99, Carbon Dioxide Level 29, Anion Gap 13, Blood Urea Nitrogen 10, Creatinine 0.77, Estimat Glomerular Filtration Rate > 60, BUN/Creatinine Ratio 13, Glucose Level 110, Calcium Level 8.7, Corrected Calcium 9.0, Total Bilirubin 0.6, Aspartate Amino Transf (AST/SGOT) 24, Alanine Aminotransferase (ALT/SGPT) 20, Alkaline Phosphatase 56, Total Protein 7.0, Albumin 3.6 Discharge Home Medications: Active Scripts Active Boudreauxs (Zinc Oxide) 28 Gm Oint 0 Gm TOP NEEDED PRN Nystatin 15 Gm Cream..g. 0 Gm TP TID Pantoprazole Sodium 40 Mg Tablet.dr 40 Mg PO DAILY Xanax Tablet (Alprazolam) 0.25 Mg Tab 0.25 Mg PO HS Losartan Potassium 25 Mg Tablet 25 Mg PO DAILY Metoprolol Tartrate 25 Mg Tablet 12.5 Mg PO BID Reported Potassium Chloride 20 Meq Tablet.er 40 Meq PO DAILY TAKES 2 (20MEQ) TABS Aspirin 81 Mg Tab.chew 81 Mg PO DAILY Benadryl (Diphenhydramine HCl) 25 Mg Capsule 50 Mg PO DAILY PRN Proair Hfa (Albuterol Sulfate) 1 Puff Puff 2 Puff IH Q4H PRN Atorvastatin Calcium 40 Mg Tablet 40 Mg PO DAILY Furosemide 20 Mg Tablet 40 Mg PO DAILY TAKES 2 (20MG) TABS DAILY Hydrochlorothiazide 25 Mg Tablet 25 Mg PO DAILY Instructions to patient/family Please see electronic discharge instructions given to patient. Diagnosis/Problems Diagnosis/Problems (1) Critical illness myopathy (2) Obesity hypoventilation syndrome (3) Delirium Status: Resolved Resolution Date/Time: 03/02/20 @ 10:50 (4) Debility Status: Acute (5) Acute renal failure (ARF) Status: Resolved Resolution Date/Time: 02/21/20 @ 13:40 (6) Influenza B Status: Acute (7) Septic shock Status: Resolved Resolution Date/Time: 02/28/20 @ 13:39 (8) Acute and chronic respiratory failure with hypoxia Status: Acute (9) Elevated brain natriuretic peptide (BNP) level Status: Acute Clinical Quality Measures DVT/VTE Risk/Contraindication: Risk Factor Score Per Nursin RFS Level Per Nursing on Admit: 4+=Very High DAVID THOMPSON DO Mar 17, 2020 06:51
[2020-03-17] MEDS: ASPIRIN 81 MG CHEW (CHILDREN'S ASA) PO SCH (09:36)
[2020-03-17] MEDS: PANTOPRAZOLE 40 MG (PROTONIX) TAB PO SCH (09:36)
[2020-03-17] MEDS: LOSARTAN 25 MG (COZAAR) TAB PO SCH (09:36)
[2020-03-17] MEDS: meTOprolol TARTRATE 25 MG (LOPRESSOR) TABLET PO SCH (09:36)
[2020-03-17] MEDS: SENNA W/DOCUSATE (SENOKOT S) TABLET PO SCH (09:36)
[2020-03-17] MEDS: ENOXAPARIN 40 MG/0.4 ML (LOVENOX) SYR SC SCH (09:36)
[2020-03-17] MEDS: FUROSEMIDE 20 MG (LASIX) TAB PO SCH (09:36)
[2020-03-17] MEDS: KCL 20 MEQ TAB (K-DUR) PO SCH (09:36)
[2020-03-17] MEDS: polyethylene glycoL POWDER 17 GM (MIRALAX) PACK PO SCH (09:37)
[2020-03-17] MEDS: DOCUSATE SODIUM 100 MG (COLACE) CAP PO SCH (09:37)
[2020-03-17] MEDS: NYSTATIN CREAM (MYCOSTATIN) 30 GM TUBE TP SCH (09:38)
--- NOTE | 2020-03-17 10:00 | NUR ---
CM/SS DISCHARGE Patient discharged today as planned home with her daughter Jazzmine until such time as they believe she can return to her home as before. Patient is uninsured at this time with [employer] application pending. Yenny care extended through [facility]. HHC: Coordinated with [facility], they are working in partnership with [facility] to provide RN PT OT to patient. Updated daughter's address with them and provided for Registration to update demographics. DME: Patient is established with [facility] for home O2. Provided new order for FWW and updated home O2 study with orders for continuous O2 at 2L. On-Call [facility] delivered items to patient room. Updated daughter Jazzmine. She will wait for [facility] to deliver O2 tanks to her home in lieu of portable concentrator because their stock is all checked out. Once the tanks are delivered, Jazzmine understands to call unit and get instructions about which entrance to meet patient for transport. All identified discharge needs have been met. Unit RN aware of plans.
--- NOTE | 2020-03-17 10:04 | NUR ---
Dr Pisano office to call pt this afternoon with appt for next week. Nurses are out of office until this afternoon. Pt notified.
--- NOTE | 2020-03-17 10:32 | Therapy Team Discharge Summary ---
Therapy Discharge Summary Discharge Recommendations Date of Discharge Physical Therapy Patient came to rehab with respiratory failure/hypercapnia/PETR. Upon evaluation patient performed bed mobility with min assist, supine <-> sit min assist, sit <-> stand min assist, transfers min assist, car transfer mod assist, ambulated 10' with a rolling walker with min assist, WC dependent. Patient has been performing bed mobility and transfer training, balance and endurance training, functional strengthening, stair training, gait training, and education. Patient has made fair progress and has met all of her senior living goals. Now, patient performs bed mobility and transfers with independence, car transfer independent, picks up an object from the floor with CGA, ambulated 200' with a rolling walker with CGA (including 50' with at least 2 turns of 90 degrees and 10' over an uneven surface), and can go up and down 4 steps using 2 handrails with CGA. Patient is being discharged from this facility today and will be discharged from PT at this time. Occupational Therapy Decreased Activ Tolerance, Impaired Self-Care Skills PT Motors And Generators Inspector Goals Retirement Goals PT Motors And Generators Inspector Goals Time Frame: Mar 30, 2020 Roll Left to Right (QC): 6 Sit to Lying (QC): 6 Lying-Sitting on Side/Bed(QC): 6 Sit to Stand (QC): 6 Chair/Kft-yi-Xbzys Xfer(QC): 6 Car Transfer (QC): 5 Does the Patient Walk: Yes Walk 10 feet (QC): 4 Walk 10ft-Uneven Surface(QC): 4 Walk 50ft with 2 Turns (QC): 4 Walk 150 ft (QC): 4 Wheel 50 feet with 2 turns (QC: 4 1 Step (curb) (QC): 3 4 Steps (QC): 88 12 Steps (QC): 88 Picking up an Object (QC): 88 OT Retirement Goals Retirement Goals Time Frame: Mar 30, 2020 Eating (QC): 6 (met) Oral Hygiene (QC): 5 (met) Shower/Bathe Self (QC): 4 (met) Upper Body Dressing (QC): 5 (met) Lower Body Dressing (QC): 4 (met) On/Off Footwear (QC): 4 (met) Toileting Hygiene (QC): 4 (met) Toilet/Commode Transfer (QC): 6 Additional Goals: 1-Demonstrate ADL Tasks, 2-Verbalize Understanding, 3- ImproveStrength/Cristela 1=Demonstrate adherence to instructed precautions during ADL tasks. 2=Patient will verbalize/demonstrate understanding of assistive devices/modifications for ADL. 3=Patient will improve strength/tolerance for activity to enable patient to perform ADL's. MARI LARRY PT Mar 17, 2020 10:32
--- NOTE | 2020-03-17 11:16 | NUR ---
JAS AGUILAR demonstrates understanding of discharge instructions and accurately returns instructions upon questioning. Copy of Post-Discharge Instructions given to pt. JAS AGUILAR is able to manage continuing needs after discharge. Patients belongings returned to . Patient discharged from [facility]- on 03-17-2020 at 1115. JAS AGUILAR left floor via , accompanied by .
[2020-03-17 11:17] VITALS: BP 115/68
--- NOTE | 2020-03-20 11:38 | Therapy Team Discharge Summary ---
Therapy Discharge Summary Discharge Recommendations Date of Discharge Mar 17, 2020 at 11:15 Therapy D/C Recommendations: Home w/ Family Support, Occupational Therapy Home Care Occupational Therapy Pt. has been seen by occupational therapy to increase overall strength and independence with daily tasks. Pt. has met most goals, and continues to require SBA/set up for high level ADL tasks. Pt. is independent with toilet hygiene, oral care, and feeding self. Pt. discharged to daughters home for supervision and assist as needed. Would benefit from OT in the home to work on safety and continued strength. Pt. has needed equipment. Decreased Activ Tolerance, Impaired Self-Care Skills PT Loan Officer Goals Loan Officer Goals PT Group Home Goals Time Frame: Mar 30, 2020 Roll Left to Right (QC): 6 Sit to Lying (QC): 6 Lying-Sitting on Side/Bed(QC): 6 Sit to Stand (QC): 6 Chair/Rsc-jz-Rgqfh Xfer(QC): 6 Car Transfer (QC): 5 Does the Patient Walk: Yes Walk 10 feet (QC): 4 Walk 10ft-Uneven Surface(QC): 4 Walk 50ft with 2 Turns (QC): 4 Walk 150 ft (QC): 4 Wheel 50 feet with 2 turns (QC: 4 1 Step (curb) (QC): 3 4 Steps (QC): 88 12 Steps (QC): 88 Picking up an Object (QC): 88 OT Group Home Goals Group Home Goals Time Frame: Mar 30, 2020 Eating (QC): 6 (met) Oral Hygiene (QC): 5 (met) Shower/Bathe Self (QC): 4 (met) Upper Body Dressing (QC): 5 (met) Lower Body Dressing (QC): 4 (met) On/Off Footwear (QC): 4 (met) Toileting Hygiene (QC): 4 (met) Toilet/Commode Transfer (QC): 6 (not met) Additional Goals: 1-Demonstrate ADL Tasks, 2-Verbalize Understanding, 3-ImproveStrength/Cristela 1=Demonstrate adherence to instructed precautions during ADL tasks. 2=Patient will verbalize/demonstrate understanding of assistive devices/modifications for ADL. 3=Patient will improve strength/tolerance for activity to enable patient to perform ADL's. JOLENE VALDIVIA OT Mar 20, 2020 11:38
== END 2020-03-17 11:15 | disposition home health service (06) | DRG 92 ==
LOC: UNDODISIN 12:03
PROVIDERS: ADMIT Internal Medicine; ATTEND Internal Medicine
PROC: 5A09357 Assistance with Respiratory Ventilation, Less than 24 Consecutive Hours, Continuous Positive Airway Pressure (ICD-10-PCS; principal; 2020-03-11)
DX: G72.81 Critical illness myopathy (principal); I13.0 Hypertensive heart and chronic kidney disease with heart failure and stage 1 through stage 4 chronic kidney disease, or unspecified chronic kidney disease; E66.2 Morbid (severe) obesity with alveolar hypoventilation; Z68.41 Body mass index [BMI] 40.0-44.9, adult; J44.9 Chronic obstructive pulmonary disease, unspecified; N18.9 Chronic kidney disease, unspecified; I50.9 Heart failure, unspecified; F17.210 Nicotine dependence, cigarettes, uncomplicated; E78.00 Pure hypercholesterolemia, unspecified; R41.0 Disorientation, unspecified; K21.9 Gastro-esophageal reflux disease without esophagitis; K44.9 Diaphragmatic hernia without obstruction or gangrene; M54.9 Dorsalgia, unspecified; F41.9 Anxiety disorder, unspecified; F32.9 Major depressive disorder, single episode, unspecified; G25.81 Restless legs syndrome; M19.91 Primary osteoarthritis, unspecified site; Z87.09 Personal history of other diseases of the respiratory system; Z87.01 Personal history of pneumonia (recurrent)
CPT/HCPCS: 36415; 80053; 82805; 82962; 85025; 94640; 94660; 94760; 94761

== ENCOUNTER → 2020-05-01 | Outpatient (CLI) | payer MEDICAID ==
[~2020-05-01] MED LIST changes: -ACETAMINOPHEN 500 MG TAB (TYLENOL) PO PRN; +ALPR.25T PO; -BISACODYL 10 MG SUPP (DULCOLAX) PR PRN; -CALCIUM CARBONATE 500 MG (TUMS) TAB.CHEW PO PRN; -DOCUSATE SODIUM 100 MG (COLACE) CAP PO PRN; -FLEET ENEMA ADULT 1 EA BTL PR PRN; -LACTULOSE SYRUP 10GM/15ML (ENULOSE) 30ML UDC PO PRN; -LOPERAMIDE 2 MG (IMODIUM) TABLET PO PRN; +LOSA25TA41 PO; -MELATONIN 3 MG TABLET PO PRN; +METO-333 PO; +NYST15CR TP; -ONDANSETRON 4 MG (ZOFRAN) ORAL DISSOLVE TAB PO PRN; +PANT40TA52 PO; +ZINC28PA TOP; -diphenhydrAMINE 25 MG TAB (BENADRYL) PO PRN; -guaiFENesin/CODEINE (ROBITUSSIN AC) 10ML UDC PO PRN
== END ==
LOC: CARD 12:45
PROVIDERS: ATTEND Family Medicine
DX: I42.8 Other cardiomyopathies (principal)
CPT/HCPCS: 93306

== ENCOUNTER 2020-06-13 07:15 | Emergency (ER) | payer MEDICAID ==
[~2020-06-13] VITALS: Ht 167 cm; Wt 136.0 kg
[2020-06-13] MEDS ORDERED: EPINEPHrine 0.1 MG/ML 10 ML (HOSPIRA) SYR IJ ONE (07:17)
--- NOTE | 2020-06-13 08:32 | ED CPR ---
HPI-CPR General Chief Complaint: Code Blue Stated Complaint: CODE BLUE Nursing Triage Note: SEE NURSING NOTE Sepsis Screen: No Definite Risk Source of Information: Patient Exam Limitations: No Limitations History of Present Illness Date Seen by Provider: Jun 13, 2020 Time Seen by Provider: 07:17 Initial Comments Patient arrives by EMS from home where she was staying with her daughter briefly and was found this morning just prior to arrival not breathing or moving. Last known well time was 1030 last night. Patient had severe COPD and other chronic illnesses and have been going downhill the last few weeks and is why she was staying with her mother. While enforcement initiated CPR on arrival. EMS said she was pink and warm to the touch when they arrived so they put an LMA in and an IV and started 500 cc of fluid. They did 4 rounds of epinephrine and while they transported her they saw something that might have been road noise or it might have been V. fib so they delivered [address] End-tidal CO2 was 35-60 per EMS. Blood sugar was in the 90s. Allergies and Home Medications Allergies Coded Allergies: No Known Drug Allergies (Unverified , 05/06/19) Home Medications ALPRAZolam 0.25 Mg Tab, 0.25 MG PO HS Prescribed by: DAVID THOMPSON on 03/17/20648 Albuterol Sulfate 1 Puff Puff, 2 PUFF IH Q4H PRN for SHORTNESS OF BREATH, (Reported) Aspirin 81 Mg Tab.chew, 81 MG PO DAILY, (Reported) Atorvastatin Calcium 40 Mg Tablet, 40 MG PO DAILY, (Reported) Diphenhydramine HCl 25 Mg Capsule, 50 MG PO DAILY PRN for ALLERGY SYMPTOMS, (Reported) Furosemide 20 Mg Tablet, 40 MG PO DAILY, (Reported) TAKES 2 (20MG) TABS DAILY Hydrochlorothiazide 25 Mg Tablet, 25 MG PO DAILY, (Reported) Losartan Potassium 25 Mg Tablet, 25 MG PO DAILY Prescribed by: DAVID THOMPSON on 03/17/20648 Metoprolol Tartrate 25 Mg Tablet, 12.5 MG PO BID Prescribed by: DAVID THOMPSON on 03/17/20648 Nystatin 15 Gm Cream..g., 0 GM TP TID Prescribed by: DAVID THOMPSON on 03/17/20648 Pantoprazole Sodium 40 Mg Tablet.dr, 40 MG PO DAILY Prescribed by: DAVID THOMPSON on 03/17/2049 Potassium Chloride 20 Meq Tablet.er, 40 MEQ PO DAILY, (Reported) TAKES 2 (20MEQ) TABS Zinc Oxide 28 Gm Oint, 0 GM TOP NEEDED PRN for DIAPER CHANGE Prescribed by: DAVID THOMPSON on 03/17/2049 Patient Home Medication List Home Medication List Reviewed: Yes Review of Systems Review of Systems Constitutional: see HPI (Unable to obtain a meaningful review of systems due to the patient being in cardiopulmonary arrest) All Other Systems Reviewed Negative Unless Noted: Yes Past Casrnpk-Oijlnb-Uvzsbk Hx Patient Social History Alcohol Use: Denies Use (Per daughter) Smoking Status: Current Everyday Smoker Type Used: Cigarettes 2nd Hand Smoke Exposure: Yes Recent Infectious Disease Expo: No Recent Hopitalizations: No Immunizations Up To Date Tetanus Booster (TDap): Unknown PED Vaccines UTD: No Seasonal Allergies Seasonal Allergies: Yes Past Medical History Surgeries: No Bladder Surgery, Section, Gallbladder Respiratory: Yes COPD Currently Using CPAP: No Currently Using BIPAP: No Cardiac: Yes Chronic Edema/Swelling, High Cholesterol, Hypertension Neurological: No Reproductive Disorders: No Female Reproductive Disorders: Denies Sexually Transmitted Disease: No HIV/AIDS: No Genitourinary: No Bladder Infection Gastrointestinal: Yes (fatty liver disease) Gastroesophageal Reflux, Hiatal Hernia Musculoskeletal: Yes Chronic Back Pain Endocrine: No HEENT: Yes (GLASSES, DENTURES) Loss of Vision: Bilateral Hearing Impairment: Denies Cancer: No Psychosocial: Yes Anxiety, Depression Integumentary: No Blood Disorders: No Adverse Reaction/Blood Tranf: No (N/A) Family Medical History COPD 19 MOTHER Diabetes mellitus 19 FATHER Myocardial infarction 19 FATHER TESTICULAR CANCER G8 BROTHER No Pertinent Family Hx Physical Exam Vital Signs Vital Signs - First Documented 06/13/20 09:40 Pulse 0 Resp 0 B/P (MAP) 0/0 Pulse Ox 0 Capillary Refill : Greater Than 3 Seconds Height, Weight, BMI Height: 5'7.00" Weight: 220lbs. 0.0oz. 99.736329zs; 48.00 BMI Method:Stated General Appearance: Severe Distress (Cool to touch, mottled) HEENT: No Moist Mucous Membranes; Other (Pupils 2 mm fixed bilateral) Neck: Normal Inspection, Supple Respiratory: Respiratory Distress (Cardiopulmonary arrest with a laryngal mask, I gel in place and end-tidal CO2 of 55.) Cardiovascular: Other (Cardiopulmonary arrest receiving CPR. Asystole on the monitor) Neurologic/Psychiatric: Other (GCS 3) Skin: Cool, Damp, Mottled Procedures/Interventions Reason for Intubation: Cardiopulmonary arrest Date of ETT Placement: Feb 17, 2020 Time of ETT Placement: 07:23 Intubation Method: orotracheal Tube Size: 7.50 Positive End Tide CO2: Yes Breath Sounds after Intubation: bilateral-equal Intubation Complications: no complications Post Intubation Xray: No 3 Preet and this provider was able to easily visualize the vocal cords and place the ET tube at 22 at the gums. Her breath fogging the tube she had equal bilateral breath sounds, good end-tidal CO2 and oxygen saturation. Progress/Results/Core Measures Results/Orders Lab Results Laboratory Tests Test 06/13/20 07:56 Range/Units Coronavirus 2019 ([facility]) Negative Negative My Orders Orders - TER[facility] FISH Covid 19 Inhouse Test (06/13/20 07:57) Vital Signs/I&O 06/13/20 06/13/20 07:46 09:40 Pulse 0 Resp 0 B/P (MAP) 0/0 Pulse Ox 0 Progress Progress Note : Time: 09:56 Progress Note 2 both daughters on the phone and they as well as other family was came out reviewed the body. chaplain Mitchel was there to help. Spoke to Tavon Malcolm who does not feel the patient needs to be a hide salter case at this time. Spoke to the primary care doctor, Dr. Ramirez and advised her of the patient's demise. Critical Care Note Critical Care Start Time: 07:17 Stop Time: 07:30 Total Time (minutes) 13 m Date of : Jun 13, 2020 Time of : 07:27 Progress When the patient arrived she was asystole. EMS reports she was asystole. She had received 6 doses of epinephrine and and had good high-quality chest compressions. We had good oxygen delivery with end-tidal CO2 steadily declining from 60 at the scene down to the 20s despite a good secure airway. Patient had already received IV fluids and bicarb. It was felt that the patient had an astronomically small chance of any meaningful neurologic recovery at this time and this provider decided to discontinue resuscitative efforts at 0727. A rapid Covid swab was obtained which was negative. See nursing notes for specific times in dosing. The patient arrived with an intraosseous device and IVs were established by nursing. Departure Communication (PCP) Discussed the case with Dr. Ramirez by phone. Impression Primary Impression: Cardiopulmonary arrest Additional Impression: Disposition: 20 Condition: Departure-Patient Inst. Referrals: LAMONT RAMIREZ MD (PCP/Family) Primary Care Physician Copy Copies To 1: SONNY MORENO TITUS J Jun 13, 2020 08:32
[2020-06-13 09:40] VITALS: BP 0/0
== END 2020-06-13 09:40 | disposition expired ==
LOC: EDUNIT# 07:15 → ER 07:16
DX: I46.9 Cardiac arrest, cause unspecified (principal); I10 Essential (primary) hypertension; J44.9 Chronic obstructive pulmonary disease, unspecified; K21.9 Gastro-esophageal reflux disease without esophagitis; E78.00 Pure hypercholesterolemia, unspecified; F41.9 Anxiety disorder, unspecified; F17.210 Nicotine dependence, cigarettes, uncomplicated; Z20.822 Contact with and (suspected) exposure to COVID-19; Z82.49 Family history of ischemic heart disease and other diseases of the circulatory system; Z83.3 Family history of diabetes mellitus; Z80.43 Family history of malignant neoplasm of testis; Z79.82 Long term (current) use of aspirin
CPT/HCPCS: 31500; U0002; 87635